=== PATIENT | female | born 1960 | race Caucasian/White ===

== ENCOUNTER 2017-09-04 00:30 | Outpatient (RCR) | payer MEDICARE, SELFPAY ==
[2017-09-02 01:19] VITALS: BP 154/96; PULSE 77; RESP 16; TEMP 36.4; BMI 42.8
[2017-09-04 13:06] VITALS: BP 158/88; PULSE 114; RESP 18; TEMP 36.6; BMI 42.8
--- NOTE | 2017-09-04 13:35 | PCM.WC.PN ---
(1) Non-pressure chronic ulcer of other part of left lower leg with fat layer exposed Status: Acute Current Visit: Yes Code(s): L97.822 - Non-pressure chronic ulcer of other part of left lower leg with fat layer exposed (2) Type 2 diabetes mellitus with other skin ulcer Status: Acute Current Visit: Yes Qualifiers: Diabetes mellitus shelter insulin use: unspecified shelter insulin use status Code(s): E11.622 - Type 2 diabetes mellitus with other skin ulcer; L98.499 - Non-pressure chronic ulcer of skin of other sites with unspecified severity (3) Type 2 diabetes mellitus with diabetic peripheral angiopathy without gangrene Status: Acute Current Visit: Yes 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 Present after developing cellutlitis to her LLE. Has been keeping open to air. Is currently taking doxycycline PO. The patient is status post AKA on the Right. Patient is morbidly obese. The patient has adult onset type II diabetes mellitus. She is on insulin therapy exclusively now. Her blood sugars run in the 300 range daily, but was 156 mg/dL this AM. She does not remember what her most recent hemoglobin A1c was however it usually runs in the 9-10 range. The patient has had vascular procedures performed to her left leg as well as CABG for coronary artery disease. The patient has had multiple myocardial infarctions with resultant ischemic cardiomyopathy. The patient has a pacemaker and defibrillator. The patient has atrial fibrillation and is on Coumadin therapy. 09/04--Using elzbieta, adaptic 3x/week. Improved significantly. Denies redness, pus, malodor, warmth, pain. Denies N/V/F/C. Progress of Wound: Improved significantly. Distal ulcer healed. - Physical Exam Vital Signs Temp Pulse Resp BP 97.8 F 114 H 18 158/88 H 09/04/17 13:06 09/04/17 13:06 09/04/17 13:06 09/04/17 13:06 General: Alert, Oriented x3, Cooperative, No apparent distress Skin: Ulcer/ Wound - L mobley with no erythema, no pus, no malodor, no increased warmth, no TTP. No clinical signs of acute bacterial infection noted. Please see nurse's wound assessment. Wound Measurements and Assessment WC - Nurse 1 - General Ulcer Measurement Start: 09/04/17 00:43 Freq: Status: Active Protocol: Activity Type Activity Date Activity User E-Sign Co-Sign Detail Recorded Client Recorded Date Recorded By Document 09/04/17 13:06 DL [id number] 09/04/17 13:16 DL 09/04/17 13:06 Wound Center Nurse 1 [Ulcer Assessment Protocol: WC.WD.LOC] 2-left medial mobley -Current Size (cm) - Length 0.1 -Current Size (cm) - Width 0.1 -Current Size (cm) - Depth 0.1 -Total Square Cm 0.01 -Photo Taken No -Exudate Amt None Present (0 %) -Wound Margin Thickened -Granulation Amt None Present (0 %) -Necrosis Amt Small (1-33%) -Necrotic Tissue Type Adherent Slough -Structure Exposed N/A -Texture (Yolanda-wound Skin Appearance) No Abnormality Scarring -Moisture (Yolanda-wound Skin Appearance No Abnormality ) -Color (Yolanda-wound Skin Appearance) Hemosiderin Staining -Temperature (Yolanda-wound Skin No Abnormality Appearance) (Pt Warm) -Ulcer Cleansing Rinsed/ Irrigated with Saline -Foul Odor after Cleansing No -Anesthetic Used 4% Lidocaine Solution 1-left mid mobley -Current Size (cm) - Length 0.3 -Current Size (cm) - Width 0.3 -Current Size (cm) - Depth 0.1 -Total Square Cm 0.09 -Photo Taken No -Epithelialization Medium 34-66% -Exudate Amt None Present (0 %) -Wound Margin Flat & Intact -Granulation Amt Small (1-33%) -Granulation Quality Michie -Necrosis Amt Small (1-33%) -Necrotic Tissue Type Adherent Slough -Structure Exposed N/A -Texture (Yolanda-wound Skin Appearance) Scarring -Moisture (Yolanda-wound Skin Appearance No Abnormality ) -Color (Yolanda-wound Skin Appearance) Hemosiderin Staining -Temperature (Yolanda-wound Skin No Abnormality Appearance) (Pt Warm) -Ulcer Cleansing Rinsed/ Irrigated with Saline -Foul Odor after Cleansing No -Anesthetic Used 4% Lidocaine Solution [Edema Assessment] -Left Calf (cm) 40.5 -Left Ankle (cm) 22 WC - Nurse 2 - General Ulcer CM Notes Start: 09/04/17 00:43 Freq: Status: Active Protocol: Activity Type Activity Date Activity User E-Sign Co-Sign Detail Recorded Client Recorded Date Recorded By Document 09/04/17 13:29 MW [id number] 09/04/17 13:32 MW 09/04/17 13:29 Wound Center Nurse 2 [Procedure/Treatment] 2-left medial mobley -Time 13:30 -Correct Patient Yes -Correct Side, Site, Position Yes -Correct Procedure Yes -Procedure Performed No -Post Debridement Size (cm) - Length 0 -Post Debridement Size (cm) - Width 0 -Post Debridement Size (cm) - Depth 0 -Total Square Cm 0 -Wound/Ulcer Outcome Healed- Epithelialized -Ulcer Cleansing Rinsed/ Irrigated with Saline -Foul Odor after Cleansing No -Bioengineered Tissue No -Cetacaine [place] No -Bleeding Controlled with NA -Treatment Response Procedure Tolerated Well 1-left mid mobley -Time 13:31 -Correct Patient Yes -Correct Side, Site, Position Yes -Correct Procedure Yes -Procedure Performed Yes -Type of Procedure Debridement -Clinical Debridement Subcutaneous -Post Debridement Size (cm) - Length 0.4 -Post Debridement Size (cm) - Width 0.4 -Post Debridement Size (cm) - Depth 0.1 -Total Square Cm 0.16 -Wound/Ulcer Outcome Not Healed -Ulcer Cleansing Rinsed/ Irrigated with Saline -Foul Odor after Cleansing No -Bioengineered Tissue No -Cetacaine [place] No -Bleeding Controlled with NA -Treatment Response Procedure Tolerated Well [See Physician Procedure note for Specifics] Pain Scale: 0-10 Numeric [Pain] -Is Patient Pain Free? Yes Debridement Note Post-Debridement Measurements/Treatment WC - Nurse 2 - General Ulcer CM Notes Start: 09/04/17 00:43 Freq: Status: Active Protocol: Activity Type Activity Date Activity User E-Sign Co-Sign Detail Recorded Client Recorded Date Recorded By Document 09/04/17 13:29 MW [id number] 09/04/17 13:32 MW 09/04/17 13:29 Wound Center Nurse 2 2-left medial mobley -Time 13:30 -Correct Patient Yes -Correct Side, Site, Position Yes -Correct Procedure Yes -Procedure Performed No -Post Debridement Size (cm) - Length 0 -Post Debridement Size (cm) - Width 0 -Post Debridement Size (cm) - Depth 0 -Total Square Cm 0 -Wound/Ulcer Outcome Healed- Epithelialized -Ulcer Cleansing Rinsed/ Irrigated with Saline -Foul Odor after Cleansing No -Bioengineered Tissue No -Cetacaine [place] No -Bleeding Controlled with NA -Treatment Response Procedure Tolerated Well 1-left mid mobley -Time 13:31 -Correct Patient Yes -Correct Side, Site, Position Yes -Correct Procedure Yes -Procedure Performed Yes -Type of Procedure Debridement -Clinical Debridement Subcutaneous -Post Debridement Size (cm) - Length 0.4 -Post Debridement Size (cm) - Width 0.4 -Post Debridement Size (cm) - Depth 0.1 -Total Square Cm 0.16 -Wound/Ulcer Outcome Not Healed -Ulcer Cleansing Rinsed/ Irrigated with Saline -Foul Odor after Cleansing No -Bioengineered Tissue No -Cetacaine [place] No -Bleeding Controlled with NA -Treatment Response Procedure Tolerated Well Pain Scale: 0-10 Numeric Is Patient Pain Free? Yes Wound debrided: L mobley Laterality: Left Wound Grade/Stage: Full thickness pickard 1 diabetic ulcer Type of Debridement: Excisional debridement Anesthesia Used: 4% Lidocaine Solution Depth: Down to and including healthy tissue, in the subcutaneous layer Percentage of wound debrided: 100 Instrument Used: 3mm curette Tissue Removed: fibrous slough Severity: Fat Layer Exposed Amount of bleeding with debridement: Mild Bleeding Controlled with: Pressure, Compression and gauze Patient tolerated procedure well Assessment/Plan Active Problems Type 2 diabetes mellitus with diabetic peripheral angiopathy without gangrene (Acute) Type 2 diabetes mellitus with other skin ulcer (Acute) Non-pressure chronic ulcer of other part of left lower leg with fat layer exposed (Acute) Assessment: See diagnoses Plan: SQ/excisional debridement of L mobley ulcer as above. Cont elzbieta and dry dressing every other day. Cover with adaptic and dry gauze. Improved significantly. Discussed importance of adequate nutrition, especially increased protein intake, to promote healing. Pt is non-smoker. Discussed importance of tight blood sugar control. Monitor for redness, pus, malodor, warmth, pain, swelling, as well as for N/V/F/C and go to the ED with these. RTC 1 week, call with questions prior to f/u appt.
--- NOTE | 2017-09-04 13:39 | PN.PCM_ITS ---
(1) Non-pressure chronic ulcer of other part of left lower leg with fat layer exposed Status: Acute Current Visit: Yes Code(s): L97.822 - Non-pressure chronic ulcer of other part of left lower leg with fat layer exposed (2) Type 2 diabetes mellitus with other skin ulcer Status: Acute Current Visit: Yes Qualifiers: Diabetes mellitus detention insulin use: unspecified detention insulin use status Code(s): E11.622 - Type 2 diabetes mellitus with other skin ulcer; L98.499 - Non -pressure chronic ulcer of skin of other sites with unspecified severity (3) Type 2 diabetes mellitus with diabetic peripheral angiopathy without gangrene Status: Acute Current Visit: Yes 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 Present after developing cellutlitis to her LLE. Has been keeping open to air. Is currently taking doxycycline PO. The patient is status post AKA on the Right. Patient is morbidly obese. The patient has adult onset type II diabetes mellitus. She is on insulin therapy exclusively now. Her blood sugars run in the 300 range daily, but was 156 mg/dL this AM. She does not remember what her most recent hemoglobin A1c was however it usually runs in the 9-10 range. The patient has had vascular procedures performed to her left leg as well as CABG for coronary artery disease. The patient has had multiple myocardial infarctions with resultant ischemic cardiomyopathy. The patient has a pacemaker and defibrillator. The patient has atrial fibrillation and is on Coumadin therapy. 09/04--Using elzbieta, adaptic 3x/week. Improved significantly. Denies redness, pus, malodor, warmth, pain. Denies N/V/F/C. Progress of Wound: Improved significantly. Distal ulcer healed. - Physical Exam Vital Signs Temp Pulse Resp BP 97.8 F 114 H 18 158/88 H 09/04/17 13:06 09/04/17 13:06 09/04/17 13:06 09/04/17 13:06 General: Alert, Oriented x3, Cooperative, No apparent distress Skin: Ulcer/ Wound - L mobley with no erythema, no pus, no malodor, no increased warmth, no TTP. No clinical signs of acute bacterial infection noted. Please see nurse's wound assessment. Wound Measurements and Assessment WC - Nurse 1 - General Ulcer Measurement Start: 09/04/17 00:43 Freq: Status: Active Protocol: Activity Type Activity Date Activity User E-Sign Co-Sign Detail Recorded Client Recorded Date Recorded By Document 09/04/17 13:06 DL [id number] 09/04/17 13:16 DL 09/04/17 13:06 Wound Center Nurse 1 [Ulcer Assessment Protocol: WC.WD.LOC] 2-left medial mobley -Current Size (cm) - Length 0.1 -Current Size (cm) - Width 0.1 -Current Size (cm) - Depth 0.1 -Total Square Cm 0.01 -Photo Taken No -Exudate Amt None Present (0 %) -Wound Margin Thickened -Granulation Amt None Present (0 %) -Necrosis Amt Small (1-33%) -Necrotic Tissue Type Adherent Slough -Structure Exposed N/A -Texture (Yolanda-wound Skin Appearance) No Abnormality Scarring -Moisture (Yolanda-wound Skin Appearance No Abnormality ) -Color (Yolanda-wound Skin Appearance) Hemosiderin Staining -Temperature (Yolanda-wound Skin No Abnormality Appearance) (Pt Warm) -Ulcer Cleansing Rinsed/ Irrigated with Saline -Foul Odor after Cleansing No -Anesthetic Used 4% Lidocaine Solution 1-left mid mobley -Current Size (cm) - Length 0.3 -Current Size (cm) - Width 0.3 -Current Size (cm) - Depth 0.1 -Total Square Cm 0.09 -Photo Taken No -Epithelialization Medium 34-66% -Exudate Amt None Present (0 %) -Wound Margin Flat & Intact -Granulation Amt Small (1-33%) -Granulation Quality [place] -Necrosis Amt Small (1-33%) -Necrotic Tissue Type Adherent Slough -Structure Exposed N/A -Texture (Yolanda-wound Skin Appearance) Scarring -Moisture (Yolanda-wound Skin Appearance No Abnormality ) -Color (Yolanda-wound Skin Appearance) Hemosiderin Staining -Temperature (Yolanda-wound Skin No Abnormality Appearance) (Pt Warm) -Ulcer Cleansing Rinsed/ Irrigated with Saline -Foul Odor after Cleansing No -Anesthetic Used 4% Lidocaine Solution [Edema Assessment] -Left Calf (cm) 40.5 -Left Ankle (cm) 22 WC - Nurse 2 - General Ulcer CM Notes Start: 09/04/17 00:43 Freq: Status: Active Protocol: Activity Type Activity Date Activity User E-Sign Co-Sign Detail Recorded Client Recorded Date Recorded By Document 09/04/17 13:29 MW [id number] 09/04/17 13:32 MW 09/04/17 13:29 Wound Center Nurse 2 [Procedure/Treatment] 2-left medial mobley -Time 13:30 -Correct Patient Yes -Correct Side, Site, Position Yes -Correct Procedure Yes -Procedure Performed No -Post Debridement Size (cm) - Length 0 -Post Debridement Size (cm) - Width 0 -Post Debridement Size (cm) - Depth 0 -Total Square Cm 0 -Wound/Ulcer Outcome Healed- Epithelialized -Ulcer Cleansing Rinsed/ Irrigated with Saline -Foul Odor after Cleansing No -Bioengineered Tissue No -Cetacaine Coleman No -Bleeding Controlled with NA -Treatment Response Procedure Tolerated Well 1-left mid mobley -Time 13:31 -Correct Patient Yes -Correct Side, Site, Position Yes -Correct Procedure Yes -Procedure Performed Yes -Type of Procedure Debridement -Clinical Debridement Subcutaneous -Post Debridement Size (cm) - Length 0.4 -Post Debridement Size (cm) - Width 0.4 -Post Debridement Size (cm) - Depth 0.1 -Total Square Cm 0.16 -Wound/Ulcer Outcome Not Healed -Ulcer Cleansing Rinsed/ Irrigated with Saline -Foul Odor after Cleansing No -Bioengineered Tissue No -Cetacaine Coleman No -Bleeding Controlled with NA -Treatment Response Procedure Tolerated Well [See Physician Procedure note for Specifics] Pain Scale: 0-10 Numeric [Pain] -Is Patient Pain Free? Yes Debridement Note Post-Debridement Measurements/Treatment WC - Nurse 2 - General Ulcer CM Notes Start: 09/04/17 00:43 Freq: Status: Active Protocol: Activity Type Activity Date Activity User E-Sign Co-Sign Detail Recorded Client Recorded Date Recorded By Document 09/04/17 13:29 MW [id number] 09/04/17 13:32 MW 09/04/17 13:29 Wound Center Nurse 2 2-left medial mobley -Time 13:30 -Correct Patient Yes -Correct Side, Site, Position Yes -Correct Procedure Yes -Procedure Performed No -Post Debridement Size (cm) - Length 0 -Post Debridement Size (cm) - Width 0 -Post Debridement Size (cm) - Depth 0 -Total Square Cm 0 -Wound/Ulcer Outcome Healed- Epithelialized -Ulcer Cleansing Rinsed/ Irrigated with Saline -Foul Odor after Cleansing No -Bioengineered Tissue No -Cetacaine Coleman No -Bleeding Controlled with NA -Treatment Response Procedure Tolerated Well 1-left mid mobley -Time 13:31 -Correct Patient Yes -Correct Side, Site, Position Yes -Correct Procedure Yes -Procedure Performed Yes -Type of Procedure Debridement -Clinical Debridement Subcutaneous -Post Debridement Size (cm) - Length 0.4 -Post Debridement Size (cm) - Width 0.4 -Post Debridement Size (cm) - Depth 0.1 -Total Square Cm 0.16 -Wound/Ulcer Outcome Not Healed -Ulcer Cleansing Rinsed/ Irrigated with Saline -Foul Odor after Cleansing No -Bioengineered Tissue No -Cetacaine Coleman No -Bleeding Controlled with NA -Treatment Response Procedure Tolerated Well Pain Scale: 0-10 Numeric Is Patient Pain Free? Yes Wound debrided: L mobley Laterality: Left Wound Grade/Stage: Full thickness pickard 1 diabetic ulcer Type of Debridement: Excisional debridement Anesthesia Used: 4% Lidocaine Solution Depth: Down to and including healthy tissue, in the subcutaneous layer Percentage of wound debrided: 100 Instrument Used: 3mm curette Tissue Removed: fibrous slough Severity: Fat Layer Exposed Amount of bleeding with debridement: Mild Bleeding Controlled with: Pressure, Compression and gauze Patient tolerated procedure well Assessment/Plan Active Problems Type 2 diabetes mellitus with diabetic peripheral angiopathy without gangrene ( Acute) Type 2 diabetes mellitus with other skin ulcer (Acute) Non-pressure chronic ulcer of other part of left lower leg with fat layer exposed (Acute) Assessment: See diagnoses Plan: SQ/excisional debridement of L mobley ulcer as above. Cont elzbieta and dry dressing every other day. Cover with adaptic and dry gauze. Improved significantly. Discussed importance of adequate nutrition, especially increased protein intake, to promote healing. Pt is non-smoker. Discussed importance of tight blood sugar control. Monitor for redness, pus, malodor, warmth, pain, swelling, as well as for N/V/F/C and go to the ED with these. RTC 1 week, call with questions prior to f/u appt.
== END 2017-09-30 23:59 ==
LOC: WC 00:30
PROVIDERS: Family Provider Internal Medicine; PCP Internal Medicine; Visit Provider Podiatrist Foot & Ankle Surgery
DX: E11.622 Type 2 diabetes mellitus with other skin ulcer (principal); E11.51 Type 2 diabetes mellitus with diabetic peripheral angiopathy without gangrene; L97.822 Non-pressure chronic ulcer of other part of left lower leg with fat layer exposed; Z89.611 Acquired absence of right leg above knee; E66.01 Morbid (severe) obesity due to excess calories; Z68.41 Body mass index [BMI] 40.0-44.9, adult; Z71.3 Dietary counseling and surveillance; I25.10 Atherosclerotic heart disease of native coronary artery without angina pectoris; Z95.1 Presence of aortocoronary bypass graft; Z95.810 Presence of automatic (implantable) cardiac defibrillator; I25.2 Old myocardial infarction; I48.91 Unspecified atrial fibrillation; Z79.01 Long term (current) use of anticoagulants
CPT/HCPCS: 11042

== ENCOUNTER 2018-03-11 20:20 | Emergency (ER) | payer MEDICARE, SELFPAY ==
--- NOTE | 2018-03-11 20:20 | DT_ITS ---
This patient was seen during an EMR downtime March 04, 2018 - March 11, 2018. This patient may have a combination of paper and electronic documentation or all paper documentation. All documentation is viewable within the e-chart portion of [facility] for each patient visit.
[2018-03-11 20:21] VITALS: BP 122/66; PULSE 75; RESP 17; TEMP 36.7; O2SAT 95; BMI 47.3
--- NOTE | 2018-03-11 21:15 | US_ITS ---
STUDY: VENOUS DOPPLER ULTRASOUND - RIGHT LOWER EXTREMITY REASON FOR EXAM: Female, 57 years old. Swelling after hysterectomy. Amputation TECHNIQUE: Ultrasound evaluation of the deep vein system to include gomez-scale imaging and compression was performed. Gomez-scale imaging and Doppler sonographic evaluation, including duplex spectral analysis and qualitative color flow sonography, was performed. COMPARISON: None. FINDINGS: Common Femoral Vein: Normal compression, spontaneity and augmentation. Normal color Doppler. Common Femoral Vein/Greater Saphenous Junction: Normal compression, spontaneity and augmentation. Normal color Doppler. Deep Femoral Vein: Normal compression, spontaneity and augmentation. Normal color Doppler. Femoral Proximal: Normal compression, spontaneity and augmentation. Normal color Doppler. Femoral Middle: Normal compression, spontaneity and augmentation. Normal color Doppler. Femoral Distal: Limited visualization. Normal compression, spontaneity and augmentation. Normal color Doppler. Popliteal Vein: Not seen due to amputation Posterior Tibial Vein: Not seen due to amputation Peroneal Vein: Not seen due to amputation There is no demonstrated deep venous thrombosis. US/Venous Duplex Imag/Limited/Uni IMPRESSION: No thrombosis seen. Status post amputation. Electronically Signed: Harinder Goff MD at 22:19 EDT , Service support ,
--- NOTE | 2018-03-11 22:27 | ED.VISSUMM ---
- ER Visit Summary Date of Service: 03/11/18 Chief Complaint: Swelling History of Present Illness: The patient is a 57 F who was discharged from [facility] today. She had an abdominal hysterectomy last week. Patient is on Coumadin for history of ischemic cardiomyopathy, DVT, A. fib. Patient states her Coumadin was restarted 2 or 3 days ago and her INR was 2.0 this morning. After getting home from the hospital she noted swelling to her right leg. She has had a prior AKA on that leg. She denies significant pain. Physical Examination: Vital signs unremarkable. Head neck examination is unremarkable. Heart is regular rate and rhythm. Lung sounds are clear. Abdomen is soft with appropriate tenderness around the incision site. No sign of infection. Right lower extremity examination reveals evidence of prior right AKA. She has mild tenderness. There is slight erythema along the groin crease no overt sign of infection at this time. Test Results: Venous ultrasound of the right leg reveals no evidence of clot. Emergency Department Course and Treatment: Patient was advised to keep the area clean. Continue her Coumadin as previously prescribed. Treatment Plan: [] Disposition: Discharge Impression: Right leg edema This note was generated with [employer] dictation software. It may contain incorrect words, spelling, and punctuation that were not noted in review of the chart prior to signing ED Disposition - Plan for ED Patient: Chief Complaint: Edema Referrals: Leslie Bird MD [Primary Care Provider] -
[2018-03-11 22:28] VITALS: BP 161/76; PULSE 78; RESP 18; O2SAT 97
--- NOTE | 2018-03-11 22:30 | ED.DCSUM_ITS ---
- ER Visit Summary Date of Service: 03/11/18 Chief Complaint: Swelling History of Present Illness: The patient is a 57 F who was discharged from [place] today. She had an abdominal hysterectomy last week. Patient is on Coumadin for history of ischemic cardiomyopathy, DVT, A. fib. Patient states her Coumadin was restarted 2 or 3 days ago and her INR was 2.0 this morning. After getting home from the hospital she noted swelling to her right leg. She has had a prior AKA on that leg. She denies significant pain. Physical Examination: Vital signs unremarkable. Head neck examination is unremarkable. Heart is regular rate and rhythm. Lung sounds are clear. Abdomen is soft with appropriate tenderness around the incision site. No sign of infection. Right lower extremity examination reveals evidence of prior right AKA. She has mild tenderness. There is slight erythema along the groin crease no overt sign of infection at this time. Test Results: Venous ultrasound of the right leg reveals no evidence of clot. Emergency Department Course and Treatment: Patient was advised to keep the area clean. Continue her Coumadin as previously prescribed. Treatment Plan: [] Disposition: Discharge Impression: Right leg edema This note was generated with [employer] dictation software. It may contain incorrect words, spelling, and punctuation that were not noted in review of the chart prior to signing ED Disposition - Plan for ED Patient: Chief Complaint: Edema Referrals: Leslie Bird MD [Primary Care Provider] -
--- NOTE | 2018-03-11 22:30 | ED.DEP ---
ED Disposition - Plan for ED Patient: Disposition: Home or Assisted Living Chief Complaint: Edema Instructions: ED Leg Swelling Unilateral Referrals: Leslie Bird MD [Primary Care Provider] - 1 Week
[2018-03-11 22:48] VITALS: BP 161/76; PULSE 78; RESP 18; O2SAT 98
== END 2018-03-11 23:06 | disposition home or self-care (01) ==
PROVIDERS: Emergency Provider Emergency Medicine; Family Provider Internal Medicine; PCP Internal Medicine
DX: R60.0 Localized edema (principal); I25.5 Ischemic cardiomyopathy; I48.91 Unspecified atrial fibrillation; Z79.01 Long term (current) use of anticoagulants; Z86.718 Personal history of other venous thrombosis and embolism; Z89.611 Acquired absence of right leg above knee; Z90.710 Acquired absence of both cervix and uterus
CPT/HCPCS: 93971; 99284

== ENCOUNTER 2018-04-15 13:21 | Outpatient (RCR) | payer MEDICARE, SELFPAY ==
[2018-04-08 13:40] LABS: Hematocrit 29.6 % (37-47); Hemoglobin 9.3 g/dl (12.0-15.0); Mean Corp Hgb Conc 31.4 g/gl (32-36); Mean Corpuscular Hgb 30.9 pg (27.0-32.0); Mean Corpuscular Volume 98.3 fL (81-99); Mean Platelet Vol. 11.3 fl (6.2-12.0); Platelet Count 216 K/mm3 (150-450); RBC Distribution Width CV 14.4 % (11.6-14.6); RBC Distribution Width SD 49.7 fl (35.1-43.9); Red Blood Count 3.01 M/mm3 (4.2-5.4); Scan Indicated on CBC? Y/N NO
[2018-04-08 13:53] LABS: ALB/GLOB Ratio 0.5 RATIO (0.9-2.4); AST(SGOT) 20 U/L (15-37); Alanine Aminotransfer ALT/SGPT 12 U/L (13-56); Albumin, Serum 2.4 g/dL (3.2-5.0); Alkaline Phosphatase 95 U/L (45-117); Anion Gap 9 (5-15); BUN 35 mg/dL (7-18); BUN/Creat Ratio 17.8 RATIO (10-20); Calcium,Total 9.6 mg/dL (8.5-10.1); Chloride 107 mmol/L (98-107); Creatinine, Serum 1.97 mg/dL (0.55-1.02); EST Glomerular Filtration Rate 28 mL/min (>60); Est Glom Filt Rate - Afr Amer 34 mL/min (>60); Globulin 4.5 g/dL (2.2-4.2); Glucose 79 mg/dL (74-106); Potassium 4.9 mmol/L (3.5-5.1); Protein, Total 6.9 g/dL (6.4-8.2); Sodium Level 142 mmol/L (136-145)
[2018-04-15 14:42] LABS: Hematocrit 31.5 % (37-47); Hemoglobin 9.7 g/dl (12.0-15.0); Mean Corp Hgb Conc 30.8 g/gl (32-36); Mean Corpuscular Hgb 29.9 pg (27.0-32.0); Mean Corpuscular Volume 97.2 fL (81-99); Mean Platelet Vol. 11.5 fl (6.2-12.0); Platelet Count 154 K/mm3 (150-450); RBC Distribution Width CV 14.4 % (11.6-14.6); RBC Distribution Width SD 51.1 fl (35.1-43.9); Red Blood Count 3.24 M/mm3 (4.2-5.4)
[2018-04-15 14:43] LABS: Scan Indicated on CBC? Y/N NO
[2018-04-15 14:52] LABS: ALB/GLOB Ratio 0.6 RATIO (0.9-2.4); AST(SGOT) 16 U/L (15-37); Alanine Aminotransfer ALT/SGPT 15 U/L (13-56); Albumin, Serum 2.7 g/dL (3.2-5.0); Alkaline Phosphatase 92 U/L (45-117); Anion Gap 8 (5-15); BUN 36 mg/dL (7-18); BUN/Creat Ratio 18.8 RATIO (10-20); Calcium,Total 9.2 mg/dL (8.5-10.1); Chloride 106 mmol/L (98-107); Creatinine, Serum 1.91 mg/dL (0.55-1.02); EST Glomerular Filtration Rate 29 mL/min (>60); Est Glom Filt Rate - Afr Amer 35 mL/min (>60); Globulin 4.6 g/dL (2.2-4.2); Glucose 155 mg/dL (74-106); Potassium 4.3 mmol/L (3.5-5.1); Protein, Total 7.3 g/dL (6.4-8.2); Sodium Level 141 mmol/L (136-145)
== END 2018-04-30 23:59 ==
LOC: HHLAB 13:21
PROVIDERS: Family Provider Internal Medicine; PCP Internal Medicine
DX: B95.61 Methicillin susceptible Staphylococcus aureus infection as the cause of diseases classified elsewhere (principal); E11.42 Type 2 diabetes mellitus with diabetic polyneuropathy; I11.9 Hypertensive heart disease without heart failure
CPT/HCPCS: 80053; 85027

== ENCOUNTER 2018-09-18 02:00 | Emergency (ER) | payer MEDICARE, SELFPAY ==
[2018-09-18 02:02] VITALS: BP 137/87; PULSE 78; RESP 18; TEMP 36.4; O2SAT 97; BMI 369.1
[2018-09-18] MEDS: Dextrose 50%-Water 25 GM/50 ML DISP.SYRIN IV (02:08)
[2018-09-18 02:15] LABS: Bedside Glucose 40 mg/dL (70-110)
[2018-09-18 02:42] VITALS: BP 138/90; PULSE 79; RESP 16
[2018-09-18 02:46] LABS: Bedside Glucose 139 mg/dL (70-110)
--- NOTE | 2018-09-18 02:59 | ED.RN ---
PT IN POSITION OF COMFORT. LIGHTS OFF. WILL RECHECK HER BSL AT 0330.
[2018-09-18 03:36] LABS: Bedside Glucose 144 mg/dL (70-110)
--- NOTE | 2018-09-18 04:14 | ED.VISSUMM ---
- ER Visit Summary Date of Service: 09/18/18 Chief Complaint: [Hypoglycemia] History of Present Illness: The patient is a 58 F [presents to the emergency department with a hypoglycemic episode. Patient apparently had an alarm set and when she did not wake up her significant other attempted to wake her up and she was unresponsive. EMS was called. Patient was found to have a blood glucose in the 30s. EMS did give oral glucose. EMS unable to obtain an IV therefore patient was brought to the emergency department for further evaluation. On arrival patient awake and alert and answering questions appropriately. Patient states that she normally takes 80 units of insulin in the morning and 70 units in the evening. Patient does state that she ate dinner last night. Patient is not had issue with hypoglycemia. She does have a history of diabetes, hypertension, high cholesterol, hypothyroidism, and history of DVT. Patient denies recent illness.] Physical Examination: [HEENT-PERRLA, EOMI. Cranial nerves II through XII grossly intact. TMs clear. Mucous membranes moist. No adenopathy. Cardiovascular-regular rate and rhythm without murmur or ectopy Lungs-clear to auscultation, chest wall stable without crepitus or subcu emphysema Abdomen-normoactive bowel sounds, soft, nontender, no rebound or rigidity, no peritoneal signs. Extremities-intact ?4, normal range of motion, normal pulses, atraumatic. 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 Patient was given a meal tray. Patient was observed in the emergency department for several hours and her blood glucose did not drop further.] Treatment Plan: [Patient advised to follow-up with primary care physician within next 3-5 days. Disposition: [Discharged home in stable condition] Impression: [Hypoglycemia-insulin reaction] This note was generated with [employer] dictation software. It may contain incorrect words, spelling, and punctuation that were not noted in review of the chart prior to signing ED Disposition - Plan for ED Patient: Chief Complaint: Hypoglycemia Referrals: Leslie Bird MD [Primary Care Provider] -
--- NOTE | 2018-09-18 04:17 | ED.DCSUM_ITS ---
- ER Visit Summary Date of Service: 09/18/18 Chief Complaint: [Hypoglycemia] History of Present Illness: The patient is a 58 F [presents to the emergency department with a hypoglycemic episode. Patient apparently had an alarm set and when she did not wake up her significant other attempted to wake her up and she was unresponsive. EMS was called. Patient was found to have a blood glucose in the 30s. EMS did give oral glucose. EMS unable to obtain an IV therefore patient was brought to the emergency department for further evaluation. On arrival patient awake and alert and answering questions appropriately. Patient states that she normally takes 80 units of insulin in the morning and 70 units in the evening. Patient does state that she ate dinner last night. Patient is not had issue with hypoglycemia. She does have a history of diabetes, hypertension, high cholesterol, hypothyroidism, and history of DVT. Patient denies recent illness.] Physical Examination: [HEENT-PERRLA, EOMI. Cranial nerves II through XII grossly intact. TMs clear. Mucous membranes moist. No adenopathy. Cardiovascular-regular rate and rhythm without murmur or ectopy Lungs-clear to auscultation, chest wall stable without crepitus or subcu emphysema Abdomen-normoactive bowel sounds, soft, nontender, no rebound or rigidity, no peritoneal signs. Extremities-intact ?4, normal range of motion, normal pulses, atraumatic. Patient does have a right [id number] amputation.] Test Results: [None indicated] Emergency Department Course and Treatment: [IV line established and patient given an amp of D50. Patient was given a meal tray. Patient was observed in the emergency department for several hours and her blood glucose did not drop further.] Treatment Plan: [Patient advised to follow-up with primary care physician within next 3-5 days. Disposition: [Discharged home in stable condition] Impression: [Hypoglycemia-insulin reaction] This note was generated with [employer] dictation software. It may contain incorrect words, spelling, and punctuation that were not noted in review of the chart prior to signing ED Disposition - Plan for ED Patient: Chief Complaint: Hypoglycemia Referrals: Leslie Bird MD [Primary Care Provider] -
--- NOTE | 2018-09-18 04:17 | ED.DEP ---
ED Disposition - Plan for ED Patient: Chief Complaint: Hypoglycemia Instructions: ED Diabetes Hypoglycemia Insulin React Referrals: Leslie Bird MD [Primary Care Provider] - 3-5 Days
[2018-09-18 04:32] VITALS: BP 128/74; PULSE 75; RESP 11
[2018-09-18 04:41] LABS: Bedside Glucose 126 mg/dL (70-110)
[2018-09-18 05:31] LABS: Bedside Glucose 132 mg/dL (70-110)
[2018-09-18 06:15] LABS: Bedside Glucose 140 mg/dL (70-110)
[2018-09-18 08:00] VITALS: BP 126/73; PULSE 73; RESP 12
--- OUTSIDE RECORDS SUMMARY | 2018-12-20 06:42 | XMS RPT_ITS ---
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 ADisp: 120 tabletRfl: 2 Prescriptions as of 09/26/2018 Sig: ALBUTEROL SULFATE HFA 90 MCG/* Inhale 2 Puffs as instructed * Patient not taking: Reported on 08/05/2018 ASPIRIN 81 MG CHEWABLE TABLET Take 1 tablet by mouth once d* ATORVASTATIN 40 MG TABLET Take 1 tablet by mouth once d* COMPOUNDED PRESCRIPTION BLOOD PRESSURE CUFF FOR HOME * BLOOD PRESSURE MONITOR KIT 1 Kit as directed. Home Kit, * BLOOD SUGAR DIAGNOSTIC STRIPS Test blood sugar(s) 4 times d* BLOOD-GLUCOSE METER KIT As directed BUPROPION XL 150 MG TAB Take 1 tablet by mouth once d* BUPROPION XL 300 MG 24 HR TAB TAKE ONE TABLET BY MOUTH EVER* CARVEDILOL 25 MG TABLET TAKE ONE TABLET BY MOUTH TWIC* CHOLECALCIFEROL (VITAMIN D3) * Take 1 capsule by mouth once * COLLAGENASE CLOSTRIDIUM HISTO* Apply 1 application to affect* COMPOUNDED PRESCRIPTION Magnifer for insulin syringe COMPOUNDED PRESCRIPTION Bariatric Mattress (patient a* DIAPER,BRIEF,ADULT,DISPOSABLE size 2X . uses 6 daily DX: * DICLOFENAC 1 % TOPICAL GEL Apply 2 g to affected area fo* Patient not taking: Reported on 08/05/2018 DIGOXIN 125 MCG TABLET Take 1 tablet by mouth once d* DISPOSABLE GLOVES Use as needed for home care, * EASY TOUCH INSULIN SYRINGE 0.* USE TWICE DAILY WITH insulin ESOMEPRAZOLE MAGNESIUM 40 MG * TAKE ONE CAPSULE BY MOUTH MARRY* FUROSEMIDE 40 MG TABLET TAKE ONE TABLET BY MOUTH EVER* GABAPENTIN 600 MG TABLET Take 1 tablet by mouth three * HYDROCHLOROTHIAZIDE 12.5 MG C* TAKE TWO CAPSULES BY MOUTH EV* PEN NEEDLE, DIABETIC 31 GAUGE* Use one needle per dose. 4 pe* INSULIN REGULAR HUMAN U-500 * Inject 80 units every morning* INSULIN REGULAR HUMAN U-500 * Inject 80 units 30 min before* Patient taking differently: Inject 80 units 30 min before* * LANCETS Test blood sugars 4 times earline* LISINOPRIL 20 MG TABLET Take 1 tablet by mouth once d* LORAZEPAM 0.5 MG TABLET Take 1 tablet by mouth once d* MAGNESIUM OXIDE 400 MG (241.3* TAKE ONE TABLET BY MOUTH TWIC* MUPIROCIN 2 % TOPICAL OINTMENT Apply 1 application to affect* * NEBULIZER ACCESSORIES KIT Nebulizer accessory kit with * NITROGLYCERIN 0.4 MG SUBLINGU* Dissolve under the tongue. O* NYSTATIN 100,000 UNIT/GRAM TO* Apply 1 application to affect* OXYCODONE 5 MG TABLET Take 5 mg by mouth. TRAMADOL 50 MG TABLET Take 1 tablet by mouth every * WARFARIN 5 MG TABLET 7.5mg Mon,Fri and 5mg all oth* Problem List As Of Date 09/26/2018 Noted Resolved Obesity, Class III, BMI 40-49.9 (morbid obesity*INVALID FOR* Acute myocardial infarction, unspecified site, *INVALID FOR*07/24/2017 Hyperlipemia, mixed [E78.2] INVALID FOR* More... Ulcer of heel and midfoot (HCC) [L97.409] INVALID FOR*07/24/2017 CARBUNCLE ARM (ABOVE WRIST) [L02.439, L02.429] INVALID FOR*07/24/2017 CARBUNCLE FLANK [L02.229] INVALID FOR*07/24/2017 Blood in stool [K92.1] INVALID FOR*07/24/2017 Atrial fibrillation [I48.91] INVALID FOR*10/18/2015 Asthma-chronic obstructive pulmonary disease ov* More... Contusion of foot [S90.30XA] INVALID FOR*07/24/2017 Hereditary and idiopathic peripheral neuropathy*INVALID FOR* Cannabis abuse, episodic [F12.10] INVALID FOR*07/24/2017 Eating disorder, unspecified [F50.9] INVALID FOR*07/24/2017 CERVICALGIA [M54.2] Carbuncle and furuncle of buttock [L02.33] INVALID FOR*07/24/2017 Essential hypertension [I10] INVALID FOR* More... Dermatophytosis of nail [B35.1] INVALID FOR*07/24/2017 Unspecified local infection of skin and subcuta*INVALID FOR*07/24/2017 More... Other malaise and fatigue [R53.81, R53.83] INVALID FOR*07/24/2017 ABNORMALITY OF GAIT [R26.9] INVALID FOR* WEAKNESS MUSCLE [M62.81] INVALID FOR* Multiple and unspecified open wound of lower li*INVALID FOR*07/24/2017 RESTLESS LEGS SYNDROME [G25.81] INVALID FOR* Vitamin D deficiency [E55.9] INVALID FOR* Neoplasm of unspecified nature of bone, soft ti*INVALID FOR*07/24/2017 Cellulitis and abscess of leg, except foot [L03*INVALID FOR*07/24/2017 Other hammer toe (acquired) [M20.40] INVALID FOR*07/24/2017 Obstructive chronic bronchitis without exacerba*INVALID FOR*03/07/2017 More... 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 Type II or unspecified type diabetes mellitus w*INVALID FOR*04/20/2016 SUMMARY [V999.95] INVALID FOR*07/24/2017 More... CAD (coronary artery disease) [I25.10] INVALID FOR* More... AF (atrial fibrillation) [I48.91] INVALID FOR*04/16/2017 More... HTN (hypertension) [I10] INVALID FOR*07/24/2017 More... Heart failure/ Ischemic Cardiomyopathy [I50.9] INVALID FOR* More... Hypothyroid [E03.9] INVALID FOR*03/22/2016 More... Venous ulcer of leg (HCC) [I83.009, L97.909] INVALID FOR*07/24/2017 More... More... SUMMARY [V999.95] INVALID FOR*12/29/2013 More... Cellulitis of lower limb [L03.119] INVALID FOR*07/24/2017 More... Acute renal insufficiency [N28.9] INVALID FOR*07/24/2017 More... Chest pain at rest [R07.9] INVALID FOR*07/24/2017 More... Decubitus skin ulcer [L89.90] INVALID FOR*07/24/2017 More... Hyponatremia [E87.1] INVALID FOR*07/24/2017 More... Diarrhea [R19.7] INVALID FOR*07/24/2017 More... Debility [R53.81] INVALID FOR* CKD (chronic kidney disease) stage 3, GFR 30-59*INVALID FOR* Microalbuminuria [R80.9] Knee pain [M25.569] INVALID FOR* Peripheral vascular disease [I73.9] INVALID FOR* More... Depression/ ? Bipolar Disorder [F32.9] INVALID FOR* More... More... Oliguria [R34] INVALID FOR*06/18/2013 More... Atherosclerosis of nonautologous biological byp*INVALID FOR*07/24/2017 Wound infection after surgery [T81.49XA] INVALID FOR*07/24/2017 More... Shortness of breath [R06.02] INVALID FOR*07/24/2017 More... LBBB (left bundle branch block) [I44.7] INVALID FOR* LV dysfunction [I51.9] INVALID FOR* Atherosclerosis of autologous vein bypass graft*INVALID FOR* Chronic anticoagulation [Z79.01] INVALID FOR* More... Admission for therapeutic drug monitoring [Z51.*INVALID FOR*07/24/2017 More... Heart failure, systolic, chronic [I50.22] INVALID FOR*03/15/2018 More... Biventricular ICD (implantable cardioverter-def*INVALID FOR* H/O: CVA (cerebrovascular accident) [Z86.73] INVALID FOR* MAX (acute kidney injury) (HCC) [N17.9] INVALID FOR*07/24/2017 More... More... Heart failure, systolic, acute on chronic (HCC)*INVALID FOR*07/24/2017 More... Discharge planning issues [Z02.9] INVALID FOR*03/05/2017 More... Presence of stent in right coronary artery [Z95*INVALID FOR* Presence of bare metal stent in LAD coronary ar*INVALID FOR* Chronic atrial fibrillation (HCC) [I48.2] INVALID FOR* Depressive disorder, not elsewhere classified [* Uncontrolled type 2 diabetes mellitus with diab*INVALID FOR* Morbid obesity due to excess calories (HCC) [E6*INVALID FOR*04/16/2017 History of right above knee amputation (HCC) [Z* More... Pleural effusion, bilateral [J90] INVALID FOR* More... Chronic renal insufficiency [N18.9] INVALID FOR* Endometrial cancer (HCC) [C54.1] INVALID FOR* More... Pulmonary HTN [I27.20] INVALID FOR* GERD (gastroesophageal reflux disease) [K21.9] INVALID FOR* Uterine cancer (HCC) [C55] INVALID FOR* More... Prescriptions ordered this encounter Disp Refills Start End TRAMADOL 50 MG TABLET 120 * 2 09/26/2018 12/25/2018 Class: Print RX Route: ORAL Sig: Take 1 tablet by mouth every 6 hours for 90 days. A Medications Discontinued During This Encounter traMADol (ULTRAM) 50 mg tablet 120 * 2 11/01/2017 09/26/2018 Class: Print RX Route: ORAL Sig: Take 1 tablet by mouth every 6 hours for 90 days. A Disc: Reason for discontinue is not on file. Encounter Status:Closed by AMEENA CEE on 09/27/18 BEDSIDE GLUCOSE Collected: 09/18/2018 Status: F Source: DI 6:11 AM [facility] REPOSITORY TYPE CODE TESTS RESULT OUT OF REFERENCE UNITS RANGE LAB L501.080 70-110 mg/dL High BEDSIDE GLU 140 Result Comment: MANAGEMENT OF PATIENT CARE PER NURSING PROTOCOL Performed By: #### L501.080 #### [facility] Point of Care [address] [place] [address] BEDSIDE GLUCOSE Collected: 09/18/2018 Status: F Source: DI 5:23 AM [facility] REPOSITORY TYPE CODE TESTS RESULT OUT OF REFERENCE UNITS RANGE LAB L501.080 70-110 mg/dL High BEDSIDE GLU 132 Result Comment: MANAGEMENT OF PATIENT CARE PER NURSING PROTOCOL Performed By: #### L501.080 #### [facility] Point of Care [address] [place] [address] BEDSIDE GLUCOSE Collected: 09/18/2018 Status: F Source: DI 4:37 AM [facility] REPOSITORY TYPE CODE TESTS RESULT OUT OF REFERENCE UNITS RANGE LAB L501.080 70-110 mg/dL High BEDSIDE GLU 126 Result Comment: MANAGEMENT OF PATIENT CARE PER NURSING PROTOCOL Performed By: #### L501.080 #### [facility] Point of Care [address] [place] [address] EMERGENCY DEPARTMENT Observed: 09/18/2018 Status: F Source: [place] SUMMARY 4:17 AM [facility] REPOSITORY [facility] Medical Records Department [address] [place] [address] Emergency Department Summary 09/18/18 0414 MR#: [id number] Acct: [id number] Name: SHOSHANA MADDEN Rep #: [id number] : 1960 58 From: Aviva Redd DO PCP: Jing Garza MD Status: REG ER - ER Visit Summary Date of Service: 09/18/18 Chief Complaint: [Hypoglycemia] History of Present Illness: The patient is a 58 F [presents to the emergency department with a hypoglycemic episode. Patient apparently had an alarm set and when she did not wake up her significant other attempted to wake her up and she was unresponsive. EMS was called. Patient was found to have a blood glucose in the 30s. EMS did give oral glucose. EMS unable to obtain an IV therefore patient was brought to the emergency department for further evaluation. On arrival patient awake and alert and answering questions appropriately. Patient states that she normally takes 80 units of insulin in the morning and 70 units in the evening. Patient does state that she ate dinner last night. Patient is not had issue with hypoglycemia. She does have a history of diabetes, hypertension, high cholesterol, hypothyroidism, and history of DVT. Patient denies recent illness.] Physical Examination: [HEENT-PERRLA, EOMI. Cranial nerves II through XII grossly intact. TMs clear. Mucous membranes moist. No adenopathy. Cardiovascular-regular rate and rhythm without murmur or ectopy Lungs-clear to auscultation, chest wall stable without crepitus or subcu emphysema Abdomen-normoactive bowel sounds, soft, nontender, no rebound or rigidity, no peritoneal signs. Extremities-intact 4, normal range of motion, normal pulses, atraumatic. Patient does have a right vhsdb-skv-sjvd amputation.] Test Results: [None indicated] Emergency Department Course and Treatment: [IV line established and patient given an amp of D50. Patient was given a meal tray. Patient was observed in the emergency department for several hours and her blood glucose did not drop further.] Treatment Plan: [Patient advised to follow-up with primary care physician within next 3-5 days. Disposition: [Discharged home in stable condition] Impression: [Hypoglycemia-insulin reaction] This note was generated with [employer] dictation software. It may contain incorrect words, spelling, and punctuation that were not noted in review of the chart prior to signing ED Disposition - Plan for ED Patient: Chief Complaint: Hypoglycemia Referrals: Jing Garza MD [Primary Care Provider] - What to do if you have Problems For any increased pain, shortness of breath, bleeding, nausea or vomiting, chest pain, or any unexpected problems, contact your Primary Care Provider. Call [facility] ([phone]) or report to the closest Emergency Room. Call 911 if necessary. 09/18/18416 <Electronically signed by Aviva Redd DO> Date Aviva Redd DO Cosigner Signature (If Indicated): Date CC: Jing Garza MD DISCHARGE INSTRUCTION Observed: 09/18/2018 Status: F Source: DI 4:17 AM [facility] REPOSITORY [facility] Medical Records Department [address] [place] [id number] Discharge Instruction 09/18/18416 MR#: [id number] Acct: [id number] Name: SHOSHANA MADDEN Rep #: [id number] : 1960 58 From: Aviva Redd DO PCP: Jing Garza MD Status: REG ER ED Disposition - Plan for ED Patient: Chief Complaint: Hypoglycemia Instructions: ED Diabetes Hypoglycemia Insulin React Referrals: Jing Garza MD [Primary Care Provider] - 3-5 Days What to do if you have Problems For any increased pain, shortness of breath, bleeding, nausea or vomiting, chest pain, or any unexpected problems, contact your Primary Care Provider. Call [facility] ([phone]) or report to the closest Emergency Room. Call 911 if necessary. 09/18/18 0417 <Electronically signed by Aviva Redd DO> Date Aviva Redd DO Cosigner Signature (If Indicated): Date CC: Jing Garza MD BEDSIDE GLUCOSE Collected: 09/18/2018 Status: F Source: DI 3:27 AM [facility] REPOSITORY TYPE CODE TESTS RESULT OUT OF REFERENCE UNITS RANGE LAB L501.080 70-110 mg/dL High BEDSIDE GLU 144 Result Comment: MANAGEMENT OF PATIENT CARE PER NURSING PROTOCOL Performed By: #### L501.080 #### [facility] Point of Care [address] [place], [place] [address] BEDSIDE GLUCOSE Collected: 09/18/2018 Status: F Source: DI 2:41 AM [facility] REPOSITORY TYPE CODE TESTS RESULT OUT OF REFERENCE UNITS RANGE LAB L501.080 70-110 mg/dL High BEDSIDE GLU 139 Result Comment: MANAGEMENT OF PATIENT CARE PER NURSING PROTOCOL Performed By: #### L501.080 #### [facility] Point of Care [address] [place] [address] BEDSIDE GLUCOSE Collected: 09/18/2018 Status: F Source: DI 2:06 AM [facility] REPOSITORY TYPE CODE TESTS RESULT OUT OF REFERENCE UNITS RANGE LAB L501.080 70-110 mg/dL Low alert BEDSIDE GLU 40 Result Comment: Dextrose [address] Orders Followed MANAGEMENT OF PATIENT CARE PER NURSING PROTOCOL Performed By: #### L501.080 #### [facility] Point of Care [address] [place] [address] XR FOOT 3V AP/LAT/OBL Observed: 09/13/2018 Status: F Source: [facility] LT 3:23 PM [facility] REPOSITORY * * *Final Report* * * DATE OF EXAM: Sep 13 2018 3:23PM WRX [id number] - XR FOOT 3V AP/LAT/OBL LT / PROCEDURE REASON: multiple diagnoses * * * * Physician Interpretation * * * * XR FOOT 3V AP/LAT/OBL LT 09/13/2018 3:23 PM INDICATION: Other diabetic neurological complication associated with type 2 diabetes mellitus (HCC) Diabetic ulcer of toe of left foot associated with type 2 diabetes mellitus, with fat layer exposed (HCC) Diabetic ulcer of toe of left foot associated with type 2 diabetes mellitus, with fat layer exposed (HCC) 58 years / Female / [id number] FINDINGS: No acute bony pathology identified. No lytic or blastic lesions. Degenerative changes right foot identified. No pathologic periosteal reaction IMPRESSION: No acute bony pathology Degenerative changes Supervisor Machine Setter: GINGER Transcribe Date/Time: Sep 14 2018 7:04P Dictated by : WALTER RYDER MD This examination was interpreted and the report reviewed and electronically signed by: WALTER RYDER MD on Sep 14 2018 7:05PM EST [id number] Observed: 09/13/2018 Status: COMPLETED Source: [place] 3:09 PM [facility] REPOSITORY HNO ID: [id number] Author: Joan Cardenas (RtGirish Moura Service: (none) Author Type: Garment Fitter Type: Progress Notes Filed: 09/13/2018 3:22 PM Note Text: Radiology Service Progress Note PATIENT NAME: Shoshana Madden DATE OF SERVICE: September 13, 2018 TIME: 3:09 PM PATIENT IDENTITY VERIFICATION COMPLETED USING TWO (2) METHODS: Patient confirmed name verbally and Date of . PATIENT GENDER DATA: Female. status: : No status: NO. PATIENT RELEVANT IMPLANT DATA REVIEWED: Not Applicable RADIOLOGY DEPARTMENT: General X-ray: Exam(s) Completed: Lower Extremity X-Ray(s): Foot, Left: PERIPHERAL IV DATA: Not applicable SIGNED BY: RT Gato September 13, 2018 3:09 PM PROGRESS Observed: 09/13/2018 Status: COMPLETED Source: [place] 2:32 PM [facility] REPOSITORY HNO ID: [id number] Author: Sue Garzon Service: (none) Author Type: Physician Type: Progress Notes Filed: 09/14/2018 10:13 PM Note Text: Subjective: Patient presents to clinic c/o painful toenails of left foot. They state that the nails are especially painful with shoe gear and pressure. Patient also reports new wound to left hallux. Patient states she developed wound to left hallux on Sunday. She feels that her shoes have been rubbing. She states the wound is starting to get black scab. Patient denies any drainage. Patient denies n/v/f/c. No other pedal complaints at this time. Patient states no change in medications or medical history since last visit. Objective: Patient presents to clinic ambulating in old diabetic shoes. Vasc: DP and PT pulses are faint to left lower extremity. CFT is less than 5 seconds to left hallux. Skin temperature is warm to cool proximal to distal bilateral. There is mild edema of left foot Neuro: Protective sensation is absent to the foot and toes when tested with the 5.07 SWM bilateral. The hallux is downgoing bilateral. Derm: Nails 1-5 left are discolored-yellow, thick, crumbly, dystrophic and with subungal debris. There is ulceration of left hallux ipj with black eschar. Ulceration measures 1.2 cm x 1.6 cm x 0.2 cm. There is no exposed tendon capsule or bone. There is mild sivakumar-wound eyrhtmea. Ortho: there are contractures of toes 1-5 left foot. There is bka right. Assessment: (E11.49) Other diabetic neurological complication associated with type 2 diabetes mellitus ([facility]) (primary encounter diagnosis) (E11.621, L97.522) Diabetic ulcer of toe of left foot associated with type 2 diabetes mellitus, with fat layer exposed ([facility]) (B35.1) Onychomycosis Plan: Patient was seen and evaluated. Discussed ulceration of left hallux. This ulceration per patient started this past Sunday and was the result of rubbing in shoes. Today, full thickness debridement was performed wt tissue nippers thru dermis, epidermis and subcutaneous tissue. At this time, no epxposed tendon or bone. Informed patient that having this new wound does risk nonhealing and potential loss of toe. Will get xrays of toe. Will place her on antibiotic as precaution. Will have her apply santyl to ulceration daily. Recommend surgical shoe but patient states that she is unable to wear surgical shoe because if she does, she will fall. Recommend she wear extra depth shoe and will give her gel padding to prevent rubbing. F/u in 1 week fo rulceration Nails 1-5 left were debrided in length and thickness. Patient was instructed on the continued importance of diabetic foot care along with proper diet and keeping their blood sugar under control to prevent complications. Patient is to RTC in 1 week Will cc chart to Dr. Crabtree due to her hx of pad. Sue Garzon DPM PROGRESS Observed: 09/13/2018 Status: COMPLETED Source: [place] 2:03 PM [facility] REPOSITORY HNO ID: [id number] Author: Jhoana Lopez Service: (none) Author Type: (none) Type: Progress Notes Filed: 09/14/2018 10:13 PM Note Text: AMB ROOMING INTAKE FLOWSHEET DATA Risk Screening Do you have concerns about personal safety or safety in the home?: No Patient presents for diabetic foot care. Pt c/o scab on left big toe x 3-4 days no pain noted. Jhoana Lopez CNOV Observed: 09/13/2018 Status: COMPLETED Source: [place] 1:50 PM [facility] REPOSITORY Office Visit (PODIWS) SHOSHANA MADDEN ([id number]) 1960 F Date Time Provider Department 09/13/18 1:50 PM SUE GARZON PODIWS During your visit today, we recorded the following information about you: Jhoana Lopez 09/14/2018 10:13 PM Signed AMB ROOMING INTAKE FLOWSHEET DATA Risk Screening Do you have concerns about personal safety or safety in the home?: No Patient presents for diabetic foot care. Pt c/o scab on left big toe x 3-4 days no pain noted. Jhoana Garzon DPM 09/14/2018 10:13 PM Signed Subjective: Patient presents to clinic c/o painful toenails of left foot. They state that the nails are especially painful with shoe gear and pressure. Patient also reports new wound to left hallux. Patient states she developed wound to left hallux on Sunday. She feels that her shoes have been rubbing. She states the wound is starting to get black scab. Patient denies any drainage. Patient denies n/v/f/c. No other pedal complaints at this time. Patient states no change in medications or medical history since last visit. Objective: Patient presents to clinic ambulating in old diabetic shoes. Vasc: DP and PT pulses are faint to left lower extremity. CFT is less than 5 seconds to left hallux. Skin temperature is warm to cool proximal to distal bilateral. There is mild edema of left foot Neuro: Protective sensation is absent to the foot and toes when tested with the 5.07 SWM bilateral. The hallux is downgoing bilateral. Derm: Nails 1-5 left are discolored-yellow, thick, crumbly, dystrophic and with subungal debris. There is ulceration of left hallux ipj with black eschar. Ulceration measures 1.2 cm x 1.6 cm x 0.2 cm. There is no exposed tendon capsule or bone. There is mild sivakumar-wound eyrhtmea. Ortho: there are contractures of toes 1-5 left foot. There is bka right. Assessment: (E11.49) Other diabetic neurological complication associated with type 2 diabetes mellitus ([facility]) (primary encounter diagnosis) (E11.621, L97.522) Diabetic ulcer of toe of left foot associated with type 2 diabetes mellitus, with fat layer exposed ([facility]) (B35.1) Onychomycosis Plan: Patient was seen and evaluated. Discussed ulceration of left hallux. This ulceration per patient started this past Sunday and was the result of rubbing in shoes. Today, full thickness debridement was performed wth tissue nippers thru dermis, epidermis and subcutaneous tissue. At this time, no epxposed tendon or bone. Informed patient that having this new wound does risk nonhealing and potential loss of toe. Will get xrays of toe. Will place her on antibiotic as precaution. Will have her apply santyl to ulceration daily. Recommend surgical shoe but patient states that she is unable to wear surgical shoe because if she does, she will fall. Recommend she wear extra depth shoe and will give her gel padding to prevent rubbing. F/u in 1 week fo rulceration Nails 1-5 left were debrided in length and thickness. Patient was instructed on the continued importance of diabetic foot care along with proper diet and keeping their blood sugar under control to prevent complications. Patient is to RTC in 1 week Will cc chart to Dr. Crabtree due to her hx of pad. GLENN Rothman RN 09/13/2018 2:53 PM Signed Wear gel toe cap on L great toe. If it makes your wound worse STOP wearing toe cap. Apply Santyl daily to wound of L great toe. Referring Provider: SUE GARZON [[id number]] Allergies As of Date: 09/13/2018 Noted Allergy Reaction IODINE 02/23/2007 2 - Rash LATEX 11/08/2005 2 - Rash MORPHINE 03/28/2013 1 - Mental Status Change PENICILLIN G 01/23/2007 2 - Rash CODEINE 10/16/2007 11 - Vomiting CONTRAST DYE 08/09/2006 8 - GI Upset MAXIDEX (DEXAMETHASONE) 09/03/2007 16 - Unknown Comments: on 03/28/13 patient does not remember reaction nor medication Date Reviewed: 09/13/2018 Reviewed by: Jhonaa Lopez - Fully Assessed Reason for Visit: Diabetic Foot Care [916] Wound Check [133] Cmt: left big toe x 3-4 days Reason For Visit History Recorded Primary Visit Diagnosis:Other diabetic neurological complication associated with type 2 diabetes mellitus ([facility]) [E11.49] Other Visit Diagnoses:Diabetic ulcer of toe of left foot associated with type 2 diabetes mellitus, with fat layer exposed ([facility]) [E11.621, L97.522] Onychomycosis [B35.1] Order(s):clindamycin (CLEOCIN) 300 mg capsuleTake 1 capsule by mouth three times daily for 7 days.Disp: 21 capsuleRfl: 0 XR FOOT GENERAL 3V AP/LAT/OBL LT [[id number]] Order #: [id number] FUTURE collagenase (SANTYL) ointmentApply 1 application to affected area once daily. APPLY TO AFFECTED AREADisp: 90 gRfl: 1 Prescriptions as of 09/13/2018 Sig: ASPIRIN 81 MG CHEWABLE TABLET Take 1 tablet by mouth once d* ATORVASTATIN 40 MG TABLET Take 1 tablet by mouth once d* COMPOUNDED PRESCRIPTION BLOOD PRESSURE CUFF FOR HOME * BLOOD PRESSURE MONITOR KIT 1 Kit as directed. Home Kit, * BLOOD SUGAR DIAGNOSTIC STRIPS Test blood sugar(s) 4 times d* BLOOD-GLUCOSE METER KIT As directed BUPROPION XL 150 MG TAB Take 1 tablet by mouth once d* BUPROPION XL 300 MG 24 HR TAB TAKE ONE TABLET BY MOUTH EVER* CARVEDILOL 25 MG TABLET TAKE ONE TABLET BY MOUTH TWIC* CHOLECALCIFEROL (VITAMIN D3) * Take 1 capsule by mouth once * COMPOUNDED PRESCRIPTION Magnifer for insulin syringe COMPOUNDED PRESCRIPTION Bariatric Mattress (patient a* DIAPER,BRIEF,ADULT,DISPOSABLE size 2X . uses 6 daily DX: * DIGOXIN 125 MCG TABLET Take 1 tablet by mouth once d* DISPOSABLE GLOVES Use as needed for home care, * EASY TOUCH INSULIN SYRINGE 0.* USE TWICE DAILY WITH insulin ESOMEPRAZOLE MAGNESIUM 40 MG * TAKE ONE CAPSULE BY MOUTH MARRY* FUROSEMIDE 40 MG TABLET TAKE ONE TABLET BY MOUTH EVER* GABAPENTIN 600 MG TABLET Take 1 tablet by mouth three * HYDROCHLOROTHIAZIDE 12.5 MG C* TAKE TWO CAPSULES BY MOUTH EV* PEN NEEDLE, DIABETIC 31 GAUGE* Use one needle per dose. 4 pe* INSULIN REGULAR HUMAN U-500 * Inject 80 units every morning* INSULIN REGULAR HUMAN U-500 * Inject 80 units 30 min before* Patient taking differently: Inject 80 units 30 min before* * LANCETS Test blood sugars 4 times earline* LISINOPRIL 20 MG TABLET Take 1 tablet by mouth once d* MAGNESIUM OXIDE 400 MG (241.3* TAKE ONE TABLET BY MOUTH TWIC* MUPIROCIN 2 % TOPICAL OINTMENT Apply 1 application to affect* * NEBULIZER ACCESSORIES KIT Nebulizer accessory kit with * NITROGLYCERIN 0.4 MG SUBLINGU* Dissolve under the tongue. O* NYSTATIN 100,000 UNIT/GRAM TO* Apply 1 application to affect* OXYCODONE 5 MG TABLET Take 5 mg by mouth. WARFARIN 5 MG TABLET 7.5mg Mon,Fri and 5mg all oth* ALBUTEROL SULFATE HFA 90 MCG/* Inhale 2 Puffs as instructed * Patient not taking: Reported on 08/05/2018 CLINDAMYCIN HCL 300 MG CAPSULE Take 1 capsule by mouth three* COLLAGENASE CLOSTRIDIUM HISTO* Apply 1 application to affect* DICLOFENAC 1 % TOPICAL GEL Apply 2 g to affected area fo* Patient not taking: Reported on 08/05/2018 LORAZEPAM 0.5 MG TABLET Take 1 tablet by mouth once d* TRAMADOL 50 MG TABLET Take 1 tablet by mouth every * Problem List As Of Date 09/13/2018 Noted Resolved Obesity, Class III, BMI 40-49.9 (morbid obesity*INVALID FOR* Acute myocardial infarction, unspecified site, *INVALID FOR*07/24/2017 Hyperlipemia, mixed [E78.2] INVALID FOR* More... Ulcer of heel and midfoot (HCC) [L97.409] INVALID FOR*07/24/2017 CARBUNCLE ARM (ABOVE WRIST) [L02.439, L02.429] INVALID FOR*07/24/2017 CARBUNCLE FLANK [L02.229] INVALID FOR*07/24/2017 Blood in stool [K92.1] INVALID FOR*07/24/2017 Atrial fibrillation [I48.91] INVALID FOR*10/18/2015 Asthma-chronic obstructive pulmonary disease ov* More... Contusion of foot [S90.30XA] INVALID FOR*07/24/2017 Hereditary and idiopathic peripheral neuropathy*INVALID FOR* Cannabis abuse, episodic [F12.10] INVALID FOR*07/24/2017 Eating disorder, unspecified [F50.9] INVALID FOR*07/24/2017 CERVICALGIA [M54.2] Carbuncle and furuncle of buttock [L02.33] INVALID FOR*07/24/2017 Essential hypertension [I10] INVALID FOR* More... Dermatophytosis of nail [B35.1] INVALID FOR*07/24/2017 Unspecified local infection of skin and subcuta*INVALID FOR*07/24/2017 More... Other malaise and fatigue [R53.81, R53.83] INVALID FOR*07/24/2017 ABNORMALITY OF GAIT [R26.9] INVALID FOR* WEAKNESS MUSCLE [M62.81] INVALID FOR* Multiple and unspecified open wound of lower li*INVALID FOR*07/24/2017 RESTLESS LEGS SYNDROME [G25.81] INVALID FOR* Vitamin D deficiency [E55.9] INVALID FOR* Neoplasm of unspecified nature of bone, soft ti*INVALID FOR*07/24/2017 Cellulitis and abscess of leg, except foot [L03*INVALID FOR*07/24/2017 Other hammer toe (acquired) [M20.40] INVALID FOR*07/24/2017 Obstructive chronic bronchitis without exacerba*INVALID FOR*03/07/2017 More... 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 Type II or unspecified type diabetes mellitus w*INVALID FOR*04/20/2016 SUMMARY [V999.95] INVALID FOR*07/24/2017 More... CAD (coronary artery disease) [I25.10] INVALID FOR* More... AF (atrial fibrillation) [I48.91] INVALID FOR*04/16/2017 More... HTN (hypertension) [I10] INVALID FOR*07/24/2017 More... Heart failure/ Ischemic Cardiomyopathy [I50.9] INVALID FOR* More... Hypothyroid [E03.9] INVALID FOR*03/22/2016 More... Venous ulcer of leg (HCC) [I83.009, L97.909] INVALID FOR*07/24/2017 More... More... SUMMARY [V999.95] INVALID FOR*12/29/2013 More... Cellulitis of lower limb [L03.119] INVALID FOR*07/24/2017 More... Acute renal insufficiency [N28.9] INVALID FOR*07/24/2017 More... Chest pain at rest [R07.9] INVALID FOR*07/24/2017 More... Decubitus skin ulcer [L89.90] INVALID FOR*07/24/2017 More... Hyponatremia [E87.1] INVALID FOR*07/24/2017 More... Diarrhea [R19.7] INVALID FOR*07/24/2017 More... Debility [R53.81] INVALID FOR* CKD (chronic kidney disease) stage 3, GFR 30-59*INVALID FOR* Microalbuminuria [R80.9] Knee pain [M25.569] INVALID FOR* Peripheral vascular disease [I73.9] INVALID FOR* More... Depression/ ? Bipolar Disorder [F32.9] INVALID FOR* More... More... Oliguria [R34] INVALID FOR*06/18/2013 More... Atherosclerosis of nonautologous biological byp*INVALID FOR*07/24/2017 Wound infection after surgery [T81.49XA] INVALID FOR*07/24/2017 More... Shortness of breath [R06.02] INVALID FOR*07/24/2017 More... LBBB (left bundle branch block) [I44.7] INVALID FOR* LV dysfunction [I51.9] INVALID FOR* Atherosclerosis of autologous vein bypass graft*INVALID FOR* Chronic anticoagulation [Z79.01] INVALID FOR* More... Admission for therapeutic drug monitoring [Z51.*INVALID FOR*07/24/2017 More... Heart failure, systolic, chronic [I50.22] INVALID FOR*03/15/2018 More... Biventricular ICD (implantable cardioverter-def*INVALID FOR* H/O: CVA (cerebrovascular accident) [Z86.73] INVALID FOR* MAX (acute kidney injury) (HCC) [N17.9] INVALID FOR*07/24/2017 More... More... Heart failure, systolic, acute on chronic (HCC)*INVALID FOR*07/24/2017 More... Discharge planning issues [Z02.9] INVALID FOR*03/05/2017 More... Presence of stent in right coronary artery [Z95*INVALID FOR* Presence of bare metal stent in LAD coronary ar*INVALID FOR* Chronic atrial fibrillation (HCC) [I48.2] INVALID FOR* Depressive disorder, not elsewhere classified [* Uncontrolled type 2 diabetes mellitus with diab*INVALID FOR* Morbid obesity due to excess calories (HCC) [E6*INVALID FOR*04/16/2017 History of right above knee amputation (HCC) [Z* More... Pleural effusion, bilateral [J90] INVALID FOR* More... Chronic renal insufficiency [N18.9] INVALID FOR* Endometrial cancer (HCC) [C54.1] INVALID FOR* More... Pulmonary HTN [I27.20] INVALID FOR* GERD (gastroesophageal reflux disease) [K21.9] INVALID FOR* Uterine cancer (HCC) [C55] INVALID FOR* More... Other instructions from your clinician: Wear gel toe cap on L great toe. If it makes your wound worse STOP wearing toe cap. Apply Santyl daily to wound of L great toe. Prescriptions ordered this encounter Disp Refills Start End CLINDAMYCIN HCL 300 MG CAPSULE 21 c* 0 09/13/2018 09/20/2018 Route: ORAL Sig: Take 1 capsule by mouth three times daily for 7 days. COLLAGENASE CLOSTRIDIUM HISTOLYTICUM* 90 g 1 09/13/2018 10/13/2018 Route: TOPICAL Sig: Apply 1 application to affected area once daily. APPLY TO AFFECTED AREA Follow-up and Disposition History Recorded Encounter Status:Closed by SUE GARZON DPM on 09/14/18 PROGRESS Observed: 08/19/2018 Status: COMPLETED Source: [place] 4:03 PM [facility] REPOSITORY HNO ID: [id number] Author: Carmella Crabtree Service: (none) Author Type: Physician Type: Progress Notes Filed: 08/19/2018 4:03 PM Note Text: This office note has been dictated. Carmella Crabtree DO CNOV Observed: 08/19/2018 Status: COMPLETED Source: [place] 11:30 AM [facility] REPOSITORY Office Visit (VASSWS) SHOSHANA MADDEN ([id number]) 1960 F Date Time Provider Department 08/19/18 11:30 AM CARMELLA CRABTREE VASNYDIAS During your visit today, we recorded the following information about you: Pulse Blood pressure 79/minute 113/76 Carmella Crabtree DO 08/19/2018 4:03 PM Signed This office note has been dictated. Carmella Crabtree DO Referring Provider: CARMELLA CRABTREE [[id number]] Allergies As of Date: 08/19/2018 Noted Allergy Reaction IODINE 02/23/2007 2 - Rash LATEX 11/08/2005 2 - Rash MORPHINE 03/28/2013 1 - Mental Status Change PENICILLIN G 01/23/2007 2 - Rash CODEINE 10/16/2007 11 - Vomiting CONTRAST DYE 08/09/2006 8 - GI Upset MAXIDEX (DEXAMETHASONE) 09/03/2007 16 - Unknown Comments: on 03/28/13 patient does not remember reaction nor medication Date Reviewed: 08/19/2018 Reviewed by: David Sparrow RN - Fully Assessed Reason for Visit: Established Patient [175] Primary Visit Diagnosis:Peripheral arterial disease (HCC) [I73.9] Order(s):US LEG ARTERIAL PERIPH UNL [facility] [[id number]] Order #: [id number] FUTURE PVR ANK PRESS JIAN [facility] [[id number]] Order #: [id number] FUTURE Prescriptions as of 08/19/2018 Sig: LISINOPRIL 20 MG TABLET Take 1 tablet by mouth once d* FUROSEMIDE 40 MG TABLET TAKE ONE TABLET BY MOUTH EVER* CARVEDILOL 25 MG TABLET TAKE ONE TABLET BY MOUTH TWIC* ATORVASTATIN 40 MG TABLET Take 1 tablet by mouth once d* BUPROPION XL 150 MG TAB Take 1 tablet by mouth once d* GABAPENTIN 600 MG TABLET Take 1 tablet by mouth three * OXYCODONE 5 MG TABLET Take 5 mg by mouth. COMPOUNDED PRESCRIPTION Bariatric Mattress (patient a* BLOOD SUGAR DIAGNOSTIC STRIPS Test blood sugar(s) 4 times d* INSULIN REGULAR HUMAN U-500 * Inject 80 units 30 min before* Patient taking differently: Inject 80 units 30 min before* BUPROPION XL 300 MG 24 HR TAB TAKE ONE TABLET BY MOUTH EVER* WARFARIN 5 MG TABLET 7.5mg Mon,Fri and 5mg all oth* INSULIN REGULAR HUMAN U-500 * Inject 80 units every morning* BLOOD PRESSURE MONITOR KIT 1 Kit as directed. Home Kit, * DIGOXIN 125 MCG TABLET Take 1 tablet by mouth once d* COMPOUNDED PRESCRIPTION BLOOD PRESSURE CUFF FOR HOME * LORAZEPAM 0.5 MG TABLET Take 1 tablet by mouth once d* CHOLECALCIFEROL (VITAMIN D3) * Take 1 capsule by mouth once * ESOMEPRAZOLE MAGNESIUM 40 MG * TAKE ONE CAPSULE BY MOUTH MARRY* HYDROCHLOROTHIAZIDE 12.5 MG C* TAKE TWO CAPSULES BY MOUTH EV* MAGNESIUM OXIDE 400 MG (241.3* TAKE ONE TABLET BY MOUTH TWIC* TRAMADOL 50 MG TABLET Take 1 tablet by mouth every * PEN NEEDLE, DIABETIC 31 GAUGE* Use one needle per dose. 4 pe* EASY TOUCH INSULIN SYRINGE 0.* USE TWICE DAILY WITH insulin ALBUTEROL SULFATE HFA 90 MCG/* Inhale 2 Puffs as instructed * Patient not taking: Reported on 08/05/2018 NYSTATIN 100,000 UNIT/GRAM TO* Apply 1 application to affect* COMPOUNDED PRESCRIPTION Magnifer for insulin syringe MUPIROCIN 2 % TOPICAL OINTMENT Apply 1 application to affect* BLOOD-GLUCOSE METER KIT As directed NITROGLYCERIN 0.4 MG SUBLINGU* Dissolve under the tongue. O* DISPOSABLE GLOVES Use as needed for home care, * DICLOFENAC 1 % TOPICAL GEL Apply 2 g to affected area fo* Patient not taking: Reported on 08/05/2018 DIAPER,BRIEF,ADULT,DISPOSABLE size 2X . uses 6 daily DX: * ASPIRIN 81 MG CHEWABLE TABLET Take 1 tablet by mouth once d* * NEBULIZER ACCESSORIES KIT Nebulizer accessory kit with * * LANCETS Test blood sugars 4 times earline* Problem List As Of Date 08/19/2018 Noted Resolved Obesity, Class III, BMI 40-49.9 (morbid obesity*INVALID FOR* Priority: H Acute myocardial infarction, unspecified site, *INVALID FOR*07/24/2017 Hyperlipemia, mixed [E78.2] INVALID FOR* More... Ulcer of heel and midfoot (HCC) [L97.409] INVALID FOR*07/24/2017 CARBUNCLE ARM (ABOVE WRIST) [L02.439, L02.429] INVALID FOR*07/24/2017 CARBUNCLE FLANK [L02.229] INVALID FOR*07/24/2017 Blood in stool [K92.1] INVALID FOR*07/24/2017 Atrial fibrillation [I48.91] INVALID FOR*10/18/2015 Asthma-chronic obstructive pulmonary disease ov* More... Contusion of foot [S90.30XA] INVALID FOR*07/24/2017 Hereditary and idiopathic peripheral neuropathy*INVALID FOR* Cannabis abuse, episodic [F12.10] INVALID FOR*07/24/2017 Eating disorder, unspecified [F50.9] INVALID FOR*07/24/2017 CERVICALGIA [M54.2] Carbuncle and furuncle of buttock [L02.33] INVALID FOR*07/24/2017 Essential hypertension [I10] INVALID FOR* More... Dermatophytosis of nail [B35.1] INVALID FOR*07/24/2017 Unspecified local infection of skin and subcuta*INVALID FOR*07/24/2017 More... Other malaise and fatigue [R53.81, R53.83] INVALID FOR*07/24/2017 ABNORMALITY OF GAIT [R26.9] INVALID FOR* WEAKNESS MUSCLE [M62.81] INVALID FOR* Multiple and unspecified open wound of lower li*INVALID FOR*07/24/2017 RESTLESS LEGS SYNDROME [G25.81] INVALID FOR* Vitamin D deficiency [E55.9] INVALID FOR* Neoplasm of unspecified nature of bone, soft ti*INVALID FOR*07/24/2017 Cellulitis and abscess of leg, except foot [L03*INVALID FOR*07/24/2017 Other hammer toe (acquired) [M20.40] INVALID FOR*07/24/2017 Obstructive chronic bronchitis without exacerba*INVALID FOR*03/07/2017 More... 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 Type II or unspecified type diabetes mellitus w*INVALID FOR*04/20/2016 SUMMARY [V999.95] INVALID FOR*07/24/2017 Priority: Severe More... CAD (coronary artery disease) [I25.10] INVALID FOR* Priority: B More... AF (atrial fibrillation) [I48.91] INVALID FOR*04/16/2017 Priority: B More... HTN (hypertension) [I10] INVALID FOR*07/24/2017 Priority: D More... Heart failure/ Ischemic Cardiomyopathy [I50.9] INVALID FOR* More... Hypothyroid [E03.9] INVALID FOR*03/22/2016 Priority: F More... Venous ulcer of leg (HCC) [I83.009, L97.909] INVALID FOR*07/24/2017 More... More... SUMMARY [V999.95] INVALID FOR*12/29/2013 More... Cellulitis of lower limb [L03.119] INVALID FOR*07/24/2017 Priority: E More... Acute renal insufficiency [N28.9] INVALID FOR*07/24/2017 More... Chest pain at rest [R07.9] INVALID FOR*07/24/2017 More... Decubitus skin ulcer [L89.90] INVALID FOR*07/24/2017 More... Hyponatremia [E87.1] INVALID FOR*07/24/2017 More... Diarrhea [R19.7] INVALID FOR*07/24/2017 More... Debility [R53.81] INVALID FOR* CKD (chronic kidney disease) stage 3, GFR 30-59*INVALID FOR* Microalbuminuria [R80.9] Knee pain [M25.569] INVALID FOR* Peripheral vascular disease [I73.9] INVALID FOR* Priority: E More... Depression/ ? Bipolar Disorder [F32.9] INVALID FOR* Priority: G More... More... Oliguria [R34] INVALID FOR*06/18/2013 More... Atherosclerosis of nonautologous biological byp*INVALID FOR*07/24/2017 Wound infection after surgery [T81.49XA] INVALID FOR*07/24/2017 More... Shortness of breath [R06.02] INVALID FOR*07/24/2017 More... LBBB (left bundle branch block) [I44.7] INVALID FOR* Priority: D LV dysfunction [I51.9] INVALID FOR* Atherosclerosis of autologous vein bypass graft*INVALID FOR* Chronic anticoagulation [Z79.01] INVALID FOR* Priority: B More... Admission for therapeutic drug monitoring [Z51.*INVALID FOR*07/24/2017 Priority: B More... Heart failure, systolic, chronic [I50.22] INVALID FOR*03/15/2018 Priority: A More... Biventricular ICD (implantable cardioverter-def*INVALID FOR* H/O: CVA (cerebrovascular accident) [Z86.73] INVALID FOR* MAX (acute kidney injury) (HCC) [N17.9] INVALID FOR*07/24/2017 More... More... Heart failure, systolic, acute on chronic (HCC)*INVALID FOR*07/24/2017 Priority: B More... Discharge planning issues [Z02.9] INVALID FOR*03/05/2017 More... Presence of stent in right coronary artery [Z95*INVALID FOR* Presence of bare metal stent in LAD coronary ar*INVALID FOR* Chronic atrial fibrillation (HCC) [I48.2] INVALID FOR* Depressive disorder, not elsewhere classified [* Uncontrolled type 2 diabetes mellitus with diab*INVALID FOR* Morbid obesity due to excess calories (HCC) [E6*INVALID FOR*04/16/2017 History of right above knee amputation (HCC) [Z* More... Pleural effusion, bilateral [J90] INVALID FOR* More... Chronic renal insufficiency [N18.9] INVALID FOR* Endometrial cancer (HCC) [C54.1] INVALID FOR* More... Pulmonary HTN [I27.20] INVALID FOR* GERD (gastroesophageal reflux disease) [K21.9] INVALID FOR* Uterine cancer (HCC) [C55] INVALID FOR* More... Encounter Status:Closed by CARMELLA CRABTREE DO on 08/19/18 PROGRESS Observed: 08/19/2018 Status: COMPLETED Source: [place] 12:00 AM [facility] REPOSITORY HNO ID: [id number] Author: Carmella Crabtree Service: Vascular Surgery Author Type: Physician Type: Progress Notes Filed: 08/23/2018 11:16 AM Note Text: NAME: SHOSHANA MADDEN [facility] NO: [id number] DATE OF SERVICE: 08/19/2018 Subjective: Ms. Madden is here to follow up on peripheral arterial disease. She has a history of a right AKA and a left fem- peroneal bypass. She is primarily in a wheelchair since our last visit. She did undergo a hysterectomy and panniculectomy with BEE BREEDER/ONC at [place] and finally just had her incision heal. Overall, she denies any lower extremity complaints. No ulcerations or tissue loss. Her vascular lab testing is stable. Her PVR is biphasic with waveforms at borderline at rest, which is unchanged, and her arterial duplex is unchanged. She did have some mild elevated velocities at the distal anastomosis, however, this is stable from her prior duplexes. Assessment/Plan: Peripheral arterial disease, status post femoral-tibial bypass. Reviewed the findings with Ms. Madden. Recommend she continue her current medications. She will followup in six months with repeat imaging, or sooner with any concerns. Carmella Crabtree D.O. KB/[id number] Audio #: [id number] Date Dictated: 08/19/2018 15:54:25 Date Typed: 08/23/2018 06:07:14 Date Revised: KALYANI Observed: 08/16/2018 Status: COMPLETED Source: [place] 12:00 AM [facility] REPOSITORY Telephone (PODIWS) MARYANNESHOSHANA Addison ([id number]) 1960 F Date Time Provider Department 08/16/18 SUE GARZON During your visit today, we recorded the following information about you: Casandra Rodr 08/16/2018 12:04 PM Signed Patient is requesting a script for her diabetic shoes please advise the patient Sue Garzon DPM 08/16/2018 10:46 PM Signed Order signed for diabetic shoes. Please call patient to inform. 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] Other Visit Diagnosis:History of amputation of lower extremity through tibia and fibula, unspecified laterality (HCC) [Z89.519] Order(s):DIAB SHOE FOR DENSITY INSERT [[id number]] Order #: [id number] Prescriptions as of 08/16/2018 Sig: LISINOPRIL 20 MG TABLET Take 1 tablet by mouth once d* FUROSEMIDE 40 MG TABLET TAKE ONE TABLET BY MOUTH EVER* CARVEDILOL 25 MG TABLET TAKE ONE TABLET BY MOUTH TWIC* ATORVASTATIN 40 MG TABLET Take 1 tablet by mouth once d* BUPROPION XL 150 MG TAB Take 1 tablet by mouth once d* GABAPENTIN 600 MG TABLET Take 1 tablet by mouth three * OXYCODONE 5 MG TABLET Take 5 mg by mouth. COMPOUNDED PRESCRIPTION Bariatric Mattress (patient a* BLOOD SUGAR DIAGNOSTIC STRIPS Test blood sugar(s) 4 times d* INSULIN REGULAR HUMAN U-500 * Inject 80 units 30 min before* Patient taking differently: Inject 80 units 30 min before* BUPROPION XL 300 MG 24 HR TAB TAKE ONE TABLET BY MOUTH EVER* WARFARIN 5 MG TABLET 7.5mg Mon,Fri and 5mg all oth* INSULIN REGULAR HUMAN U-500 * Inject 80 units every morning* BLOOD PRESSURE MONITOR KIT 1 Kit as directed. Home Kit, * DIGOXIN 125 MCG TABLET Take 1 tablet by mouth once d* COMPOUNDED PRESCRIPTION BLOOD PRESSURE CUFF FOR HOME * LORAZEPAM 0.5 MG TABLET Take 1 tablet by mouth once d* CHOLECALCIFEROL (VITAMIN D3) * Take 1 capsule by mouth once * ESOMEPRAZOLE MAGNESIUM 40 MG * TAKE ONE CAPSULE BY MOUTH MARRY* HYDROCHLOROTHIAZIDE 12.5 MG C* TAKE TWO CAPSULES BY MOUTH EV* MAGNESIUM OXIDE 400 MG (241.3* TAKE ONE TABLET BY MOUTH TWIC* TRAMADOL 50 MG TABLET Take 1 tablet by mouth every * PEN NEEDLE, DIABETIC 31 GAUGE* Use one needle per dose. 4 pe* EASY TOUCH INSULIN SYRINGE 0.* USE TWICE DAILY WITH insulin ALBUTEROL SULFATE HFA 90 MCG/* Inhale 2 Puffs as instructed * Patient not taking: Reported on 08/05/2018 NYSTATIN 100,000 UNIT/GRAM TO* Apply 1 application to affect* COMPOUNDED PRESCRIPTION Magnifer for insulin syringe MUPIROCIN 2 % TOPICAL OINTMENT Apply 1 application to affect* BLOOD-GLUCOSE METER KIT As directed NITROGLYCERIN 0.4 MG SUBLINGU* Dissolve under the tongue. O* DISPOSABLE GLOVES Use as needed for home care, * DICLOFENAC 1 % TOPICAL GEL Apply 2 g to affected area fo* Patient not taking: Reported on 08/05/2018 DIAPER,BRIEF,ADULT,DISPOSABLE size 2X . uses 6 daily DX: * ASPIRIN 81 MG CHEWABLE TABLET Take 1 tablet by mouth once d* * NEBULIZER ACCESSORIES KIT Nebulizer accessory kit with * * LANCETS Test blood sugars 4 times earline* Problem List As Of Date 08/16/2018 Noted Resolved Obesity, Class III, BMI 40-49.9 (morbid obesity*INVALID FOR* Priority: H Acute myocardial infarction, unspecified site, *INVALID FOR*07/24/2017 Hyperlipemia, mixed [E78.2] INVALID FOR* More... Ulcer of heel and midfoot (HCC) [L97.409] INVALID FOR*07/24/2017 CARBUNCLE ARM (ABOVE WRIST) [L02.439, L02.429] INVALID FOR*07/24/2017 CARBUNCLE FLANK [L02.229] INVALID FOR*07/24/2017 Blood in stool [K92.1] INVALID FOR*07/24/2017 Atrial fibrillation [I48.91] INVALID FOR*10/18/2015 Asthma-chronic obstructive pulmonary disease ov* More... Contusion of foot [S90.30XA] INVALID FOR*07/24/2017 Hereditary and idiopathic peripheral neuropathy*INVALID FOR* Cannabis abuse, episodic [F12.10] INVALID FOR*07/24/2017 Eating disorder, unspecified [F50.9] INVALID FOR*07/24/2017 CERVICALGIA [M54.2] Carbuncle and furuncle of buttock [L02.33] INVALID FOR*07/24/2017 Essential hypertension [I10] INVALID FOR* More... Dermatophytosis of nail [B35.1] INVALID FOR*07/24/2017 Unspecified local infection of skin and subcuta*INVALID FOR*07/24/2017 More... Other malaise and fatigue [R53.81, R53.83] INVALID FOR*07/24/2017 ABNORMALITY OF GAIT [R26.9] INVALID FOR* WEAKNESS MUSCLE [M62.81] INVALID FOR* Multiple and unspecified open wound of lower li*INVALID FOR*07/24/2017 RESTLESS LEGS SYNDROME [G25.81] INVALID FOR* Vitamin D deficiency [E55.9] INVALID FOR* Neoplasm of unspecified nature of bone, soft ti*INVALID FOR*07/24/2017 Cellulitis and abscess of leg, except foot [L03*INVALID FOR*07/24/2017 Other hammer toe (acquired) [M20.40] INVALID FOR*07/24/2017 Obstructive chronic bronchitis without exacerba*INVALID FOR*03/07/2017 More... 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 Type II or unspecified type diabetes mellitus w*INVALID FOR*04/20/2016 SUMMARY [V999.95] INVALID FOR*07/24/2017 Priority: Severe More... CAD (coronary artery disease) [I25.10] INVALID FOR* Priority: B More... AF (atrial fibrillation)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 ulcer of leg (HCC) [I83.009, L97.909] INVALID FOR*07/24/2017 More... More... SUMMARY [V999.95] INVALID FOR*12/29/2013 More... Cellulitis of lower limb [L03.119] INVALID FOR*07/24/2017 Priority: E More... Acute renal insufficiency [N28.9] INVALID FOR*07/24/2017 More... Chest pain at rest [R07.9] INVALID FOR*07/24/2017 More... Decubitus skin ulcer [L89.90] INVALID FOR*07/24/2017 More... Hyponatremia [E87.1] INVALID FOR*07/24/2017 More... Diarrhea [R19.7] INVALID FOR*07/24/2017 More... Debility [R53.81] INVALID FOR* CKD (chronic kidney disease) stage 3, GFR 30-59*INVALID FOR* Microalbuminuria [R80.9] Knee pain [M25.569] INVALID FOR* Peripheral vascular disease [I73.9] INVALID FOR* Priority: E More... Depression/ ? Bipolar Disorder [F32.9] INVALID FOR* Priority: G More... More... Oliguria [R34] INVALID FOR*06/18/2013 More... Atherosclerosis of nonautologous biological byp*INVALID FOR*07/24/2017 Wound infection after surgery [T81.49XA] INVALID FOR*07/24/2017 More... Shortness of breath [R06.02] INVALID FOR*07/24/2017 More... LBBB (left bundle branch block) [I44.7] INVALID FOR* Priority: D LV dysfunction [I51.9] INVALID FOR* Atherosclerosis of autologous vein bypass graft*INVALID FOR* Chronic anticoagulation [Z79.01] INVALID FOR* Priority: B More... Admission for therapeutic drug monitoring [Z51.*INVALID FOR*07/24/2017 Priority: B More... Heart failure, systolic, chronic [I50.22] INVALID FOR*03/15/2018 Priority: A More... Biventricular ICD (implantable cardioverter-def*INVALID FOR* H/O: CVA (cerebrovascular accident) [Z86.73] INVALID FOR* MAX (acute kidney injury) (HCC) [N17.9] INVALID FOR*07/24/2017 More... More... Heart failure, systolic, acute on chronic (HCC)*INVALID FOR*07/24/2017 Priority: B More... Discharge planning issues [Z02.9] INVALID FOR*03/05/2017 More... Presence of stent in right coronary artery [Z95*INVALID FOR* Presence of bare metal stent in LAD coronary ar*INVALID FOR* Chronic atrial fibrillation (HCC) [I48.2] INVALID FOR* Depressive disorder, not elsewhere classified [* Uncontrolled type 2 diabetes mellitus with diab*INVALID FOR* Morbid obesity due to excess calories (HCC) [E6*INVALID FOR*04/16/2017 History of right above knee amputation (HCC) [Z* More... Pleural effusion, bilateral [J90] INVALID FOR* More... Chronic renal insufficiency [N18.9] INVALID FOR* Endometrial cancer (HCC) [C54.1] INVALID FOR* More... Pulmonary HTN [I27.20] INVALID FOR* GERD (gastroesophageal reflux disease) [K21.9] INVALID FOR* Uterine cancer (HCC) [C55] INVALID FOR* More... Encounter Status:Closed by KATHARINE SHEPHERD on 08/23/18 PROGRESS Observed: 07/17/2018 Status: COMPLETED Source: [place] 3:56 PM [facility] REPOSITORY [facility] ID: [id number] Author: Urvashi Rivas Service: (none) Author Type: (none) Type: Progress Notes Filed: 07/17/2018 3:56 PM Note Text: Radiology Service Progress Note PATIENT NAME: Shoshana Madden DATE OF SERVICE: July 17, 2018 TIME: 3:56 PM PATIENT IDENTITY VERIFICATION COMPLETED USING TWO (2) METHODS: Patient confirmed name verbally and Date of . PATIENT GENDER DATA: Female. status: : No status: NO. PATIENT RELEVANT IMPLANT DATA REVIEWED: Not Applicable RADIOLOGY DEPARTMENT: CT; Exam(s) Completed: Abdomen/Pelvis PERIPHERAL IV DATA: Not applicable SIGNED BY: Urvashi Rivas July 17, 2018 3:[address] ABD/PEL WO IVCON Observed: 07/17/2018 Status: F Source: [place] 3:17 PM [facility] REPOSITORY * * *Final Report* * * DATE OF EXAM: Jul 17 2018 3:17PM [facility] [id number] - CT ABD/PEL WO IVCKATHY / PROCEDURE REASON: ABD / PEL * * * * Physician Interpretation * * * * EXAMINATION: CT ABDOMEN AND PELVIS WITHOUT IV CONTRAST CLINICAL HISTORY: ABD / PEL pt refuses iodien allergic to all forms,pelvic pain,sheri,maddi,bso,paniculectomy kmr TECHNIQUE: Non-IV contrast imaging of the abdomen and pelvis was performed using standard technique, scanning from just above the dome of the diaphragm to the symphysis pubis. Unenhanced imaging is limited for the evaluation of some intra-abdominal and pelvic pathology. MQ: [id number] CT Radiation dose: Integrated Dose-length product (DLP) for this visit = 1134 mGy*cm. CT Dose Reduction Employed: Automated exposure control(AEC) and iterative recon COMPARISON: 12/26/2017 RESULT: Liver: No mass. Homogeneous texture. Biliary: No ductal dilatation is seen. Gallbladder is unremarkable. Spleen: Spleen is unremarkable. Pancreas: No mass or duct dilation. Adrenals: LEFT adrenal nodule unchanged in size or appearance CT number compatible with adenoma.. Kidneys: There is 1.3 cm exophytic fatty nodule projecting from the lateral aspect of the LEFT kidney image 77 thought to represent an angiomyolipoma this was present previously and appears unchanged GI tract: No bowel dilatation is seen. No evidence of obstruction. Mild diverticulosis but no evidence of diverticulitis Lymph nodes: Subcentimeter nodes in the para-aortic area noted. No enlarged nodes are seen in the para-aortic region. No enlarged lymph nodes are seen in the iliac areas at this time. Mesentery/Peritoneum: No ascites or mass. Vasculature: No evidence of dilatation of the abdominal aorta. Inferior vena cava filter again noted with the upper tip just below the level of the origin of the LEFT renal vein Pelvis: No mass, ascites or fluid collections. Bones/Soft Tissues: Marked indistinctness in the anterior abdominal wall probably related to interval ventriculostomy Lower thorax: Tiny right-sided pleural effusion remains and possible trace of LEFT pleural effusion. IMPRESSION: 1. Changes in the anterior abdominal wall probably related to interval surgery 2. No adenopathy is seen at this time 3. LEFT adrenal nodule compatible with adenoma unchanged 4. 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 Marked reduction in the bilateral pleural effusions 6. See discussion in result section of report for remainder of findings Supervisor Machine Setter: GINGER Transcribe Date/Time: Jul 17 2018 3:59P Dictated by : ADALID KIMBROUGH DO This examination was interpreted and the report reviewed and electronically signed by: ADALID KIMBROUGH DO on Jul 17 2018 4:08PM EST [id number] PROGRESS Observed: 07/09/2018 Status: COMPLETED Source: [place] 1:33 PM [facility] REPOSITORY [facility] ID: [id number] Author: Pepe Ordonez Service: (none) Author Type: Physician Type: Progress Notes Filed: 07/09/2018 5:49 PM Note Text: PERTINENT CARDIAC HISTORY ASHD - PCI LAD, RCA 2006 Atrial fib - PAF PAD - right AKA 2012 DM Obesity HTN HL CRF Cardiomyopathy - nonischemic, AV node ablation and LANDMAN-D 2012 ADHERENCE TO GUIDELINES ZACHARY-I or ARB for HF with prior LVEF<40 (NQF 0081) - met ASA or Plavix for ASHD (NQF 0067) - met Beta jeremie for ASHD with prior ND or prior LVEF<40 (NQF 0070) - met Beta ejremie for HF with prior LVEF<40 (NQF 0083) - met ZACHARY-I or ARB for ASHD with DM or prior LVEF<40 (NQF 0066) - met Statin therapy for ASHD or FHL or DM - met BMI documented and plan if >25 (NQF 0421) - lifestyle recommendation form Tobacco use screening and referral (NQF 0028) - lifestyle recommendation form Recommendation for whole food, plant based diet - lifestyle recommendation form CLINICAL IMPRESSION/PLAN: Shoshana Madden is doing well. She is well compensated. She has been advised to call about the pacemaker follow-up. She will continue her current medication. Blood pressure is well-controlled. I asked that she have basic profile checked. She has progressive renal insufficiency. I will see her in 6 months or as needed. Written and verbal health teaching given to patient, patient verbalizes understanding and agrees with treatment plan. DIAGNOSIS FOR VISIT: ASHD Cardiomyopathy HISTORY OF PRESENT ILLNESS Shoshana Madden returns for follow-up of multiple cardiac issues, as noted above. She recently underwent a hysterectomy and resection of her pannus. This was not complicated by any cardiac issues. She denies chest pain. She's had no orthopnea, edema, syncope, palpitations, TIAs, amaurosis or claudication. She is pleased with her surgical result ALLERGIES: ALLERGIES Allergen Reactions - Iodine Rash - Latex Rash - Morphine Mental Status Change - Penicillin G Rash - Codeine Vomiting - Contrast Dye GI Upset - Maxidex [Dexamethas* Unknown on 03/28/13 patient does not remember reaction nor medication CURRENT OUTPATIENT MEDICATIONS: oxyCODONE IR (ROXICODONE) 5 mg immediate release tablet Take 5 mg by mouth. COMPOUNDED PRESCRIPTION Bariatric Mattress (patient already has bed) Dx: C66.01, M54.2, R26.9, M62.81, I50.40, Z86.73 blood sugar diagnostic (BLOOD GLUCOSE TEST) test strip Test blood sugar(s) 4 times daily. Dx: Other DM Code E11.40 Insulin: Yes insulin regular hum U-500 conc (HUMULIN R U-500, CONC, KWIKPEN) 500 unit/mL (3 mL) inpn Inject 80 units 30 min before breakfast and 70 units 30 min before dinner buPROPion XL (WELLBUTRIN XL) 300 mg 24 hr tablet TAKE ONE TABLET BY MOUTH EVERY DAY warfarin (COUMADIN) 5 mg tablet 7.5mg Mon,Fri and 5mg all other days or as directed insulin regular hum U-500 conc (HUMULIN R U-500, CONC, KWIKPEN) 500 unit/mL (3 mL) inpn Inject 80 units every morning and 70 units every evening Blood Pressure Monitor kit 1 Kit as directed. Home Kit, Monitor and large BP cuff (check for proper sizing) Diagnosis: HTN: I10, CAD I25.10, CHF 150.22 digoxin (LANOXIN) 125 mcg tablet Take 1 tablet by mouth once daily. Blood Pressure Cuff - Home Use BLOOD PRESSURE CUFF FOR HOME USE. DX: HTN I10 LORazepam (ATIVAN) 0.5 mg tab Take 1 tablet by mouth once daily as needed for up to 90 days. cholecalciferol, Vitamin D3, (VITAMIN D3) 50,000 unit cap capsule Take 1 capsule by mouth once each week. esomeprazole (NEXIUM) 40 mg capsule TAKE ONE CAPSULE BY MOUTH EVERY DAY on an empty stomach Hydrochlorothiazide 12.5 mg capsule TAKE TWO CAPSULES BY MOUTH EVERY DAY magnesium oxide (MAG-OX) 400 mg tablet TAKE ONE TABLET BY MOUTH TWICE DAILY traMADol (ULTRAM) 50 mg tablet Take 1 tablet by mouth every 6 hours for 90 days. A gabapentin (NEURONTIN) 600 mg tablet Take 1 tablet by mouth three times daily. May take one additional tablet at bedtime. atorvastatin (LIPITOR) 40 mg tablet TAKE ONE TABLET BY MOUTH EVERY DAY furosemide (LASIX) 40 mg tablet Take 1 tablet by mouth once daily. For fluid retention and leg swelling. May add extra pill daily if needed for retention lisinopril (ZESTRIL, PRINIVIL) 20 mg tablet Take 1 tablet by mouth once daily. carvedilol (COREG) 25 mg tablet Take 1 tablet by mouth twice daily. insulin needles, DISPOSABLE, (PEN NEEDLE) 31 gauge x 5/16 ndle Use one needle per dose. 4 per day. EASY TOUCH 0.5 mL 31 gauge x 5/16 syrg USE TWICE DAILY WITH insulin albuterol HFA (VENTOLIN HFA) 90 mcg/actuation inhaler Inhale 2 Puffs as instructed every 4 hours as needed for Wheezing/Shortness of Breath (and cough). nystatin (MYCOSTATIN) powder Apply 1 application to affected area once daily. COMPOUNDED PRESCRIPTION Magnifer for insulin syringe mupirocin (BACTROBAN) 2 % ointment Apply 1 application to affected area three times daily. Location: buttocks for 7 to 10 days or till wound healed as directed Blood-Glucose Meter (FREESTYLE LITE METER) monitoring kit As directed nitroglycerin sublingual (NITROQUICK) 0.4 mg SL tablet Dissolve under the tongue. One sublingual up to every 5 minutes up to three times as needed for chest pain. Disposable Gloves (LATEX GLOVES, LARGE) misc Use as needed for home care, 1 box. DX 788.30, 250.62 Diclofenac Sodium 1 % gel Apply 2 g to affected area four times daily as needed. For left shoulder pain Diaper,Brief, Adult,Disposable (BRIEFS) misc size 2X . uses 6 daily DX: 250.62,428.0,278.01,782.3 PT has uncontrolled DM with neurologic compications causing urinary incont. Also CHF and edema and is on diuretic which contributes. aspirin 81 mg chewable tablet Take 1 tablet by mouth once daily. Nebulizer Accessories Misc Kit Nebulizer accessory kit with tubing and attachments. To be used 4 times daily as needed for wheezing/sob.493.2 Lancets (FREESTYLE LANCETS) [facility] lancets Test blood sugars 4 times daily, 250.02, insulin dep PHYSICAL EXAMINATION: VITAL SIGNS: BP 110/70 Pulse 78 LMP 07/03/2012 Chest: Clear to auscultation. Trachea is midline. Air entry is equal. Cardiac: Regular rhythm. S1 and S2 are normal. PMI is Enlarged and displaced. There is a soft murmur of tricuspid insufficiency. Carotids are brisk without bruits. JVP is less than 10 cm. Abdomen: Soft and nontender. She is obese. There are no pulsatile masses or bruits. No liver enlargement. Bowel sounds are active. Extremities: The left foot has chronic stasis with minimal edema. Pulses are diminished. Right extremity is surgically absent [id number]. Pulses are intact and symmetrical. ICD check is due. Electronically Signed: Pepe Ordonez MD July 09, 2018 1:33 PM CC: Jing Garza MD CNOV Observed: 07/09/2018 Status: COMPLETED Source: [place] 1:00 PM [facility] REPOSITORY Office Visit (CAWSTR) SHOSHANA MADDEN ([id number]) 1960 F Date Time Provider Department 07/09/18 1:00 PM PEPE ORDONEZ [facility]WSTR During your visit today, we recorded the following information about you: Pulse Blood pressure 78/minute 110/70 Pepe Ordonez MD 07/09/2018 5:49 PM Signed PERTINENT CARDIAC HISTORY ASHD - PCI LAD, RCA 2006 Atrial fib - PAF PAD - right AKA 2012 DM Obesity HTN HL CRF Cardiomyopathy - nonischemic, AV node ablation and LANDMAN-D 2012 ADHERENCE TO GUIDELINES ZACHARY-I or ARB for HF with prior LVEF<40 (NQF 0081) - met ASA or Plavix for ASHD (NQF 0067) - met Beta jeremie for ASHD with prior ND or prior LVEF<40 (NQF 0070) - met Beta jeremie for HF with prior LVEF<40 (NQF 0083) - met ZACHARY-I or ARB for ASHD with DM or prior LVEF<40 (NQF 0066) - met Statin therapy for ASHD or FHL or DM - met BMI documented and plan if >25 (NQF 0421) - lifestyle recommendation form Tobacco use screening and referral (NQF 0028) - lifestyle recommendation form Recommendation for whole food, plant based diet - lifestyle recommendation form CLINICAL IMPRESSION/PLAN: Shoshana Madden is doing well. She is well compensated. She has been advised to call about the pacemaker follow-up. She will continue her current medication. Blood pressure is well-controlled. I asked that she have basic profile checked. She has progressive renal insufficiency. I will see her in 6 months or as needed. Written and verbal health teaching given to patient, patient verbalizes understanding and agrees with treatment plan. DIAGNOSIS FOR VISIT: ASHD Cardiomyopathy HISTORY OF PRESENT ILLNESS Shoshana Madden returns for follow-up of multiple cardiac issues, as noted above. She recently underwent a hysterectomy and resection of her pannus. This was not complicated by any cardiac issues. She denies chest pain. She's had no orthopnea, edema, syncope, palpitations, TIAs, amaurosis or claudication. She is pleased with her surgical result ALLERGIES: ALLERGIES Allergen Reactions - Iodine Rash - Latex Rash - Morphine Mental Status Change - Penicillin G Rash - Codeine Vomiting - Contrast Dye GI Upset - Maxidex [Dexamethas* Unknown on 03/28/13 patient does not remember reaction nor medication CURRENT OUTPATIENT MEDICATIONS: oxyCODONE IR (ROXICODONE) 5 mg immediate release tablet Take 5 mg by mouth. COMPOUNDED PRESCRIPTION Bariatric Mattress (patient already has bed) Dx: C66.01, M54.2, R26.9, M62.81, I50.40, Z86.73 blood sugar diagnostic (BLOOD GLUCOSE TEST) test strip Test blood sugar(s) 4 times daily. Dx: Other DM Code E11.40 Insulin: Yes insulin regular hum U-500 conc (HUMULIN R U-500, CONC, KWIKPEN) 500 unit/mL (3 mL) inpn Inject 80 units 30 min before breakfast and 70 units 30 min before dinner buPROPion XL (WELLBUTRIN XL) 300 mg 24 hr tablet TAKE ONE TABLET BY MOUTH EVERY DAY warfarin (COUMADIN) 5 mg tablet 7.5mg Mon,Fri and 5mg all other days or as directed insulin regular hum U-500 conc (HUMULIN R U-500, CONC, KWIKPEN) 500 unit/mL (3 mL) inpn Inject 80 units every morning and 70 units every evening Blood Pressure Monitor kit 1 Kit as directed. Home Kit, Monitor and large BP cuff (check for proper sizing) Diagnosis: HTN: I10, CAD I25.10, CHF 150.22 digoxin (LANOXIN) 125 mcg tablet Take 1 tablet by mouth once daily. Blood Pressure Cuff - Home Use BLOOD PRESSURE CUFF FOR HOME USE. DX: HTN I10 LORazepam (ATIVAN) 0.5 mg tab Take 1 tablet by mouth once daily as needed for up to 90 days. cholecalciferol, Vitamin D3, (VITAMIN D3) 50,000 unit cap capsule Take 1 capsule by mouth once each week. esomeprazole (NEXIUM) 40 mg capsule TAKE ONE CAPSULE BY MOUTH EVERY DAY on an empty stomach Hydrochlorothiazide 12.5 mg capsule TAKE TWO CAPSULES BY MOUTH EVERY DAY magnesium oxide (MAG-OX) 400 mg tablet TAKE ONE TABLET BY MOUTH TWICE DAILY traMADol (ULTRAM) 50 mg tablet Take 1 tablet by mouth every 6 hours for 90 days. A gabapentin (NEURONTIN) 600 mg tablet Take 1 tablet by mouth three times daily. May take one additional tablet at bedtime. atorvastatin (LIPITOR) 40 mg tablet TAKE ONE TABLET BY MOUTH EVERY DAY furosemide (LASIX) 40 mg tablet Take 1 tablet by mouth once daily. For fluid retention and leg swelling. May add extra pill daily if needed for retention lisinopril (ZESTRIL, PRINIVIL) 20 mg tablet Take 1 tablet by mouth once daily. carvedilol (COREG) 25 mg tablet Take 1 tablet by mouth twice daily. insulin needles, DISPOSABLE, (PEN NEEDLE) 31 gauge x 5/16 ndle Use one needle per dose. 4 per day. EASY TOUCH 0.5 mL 31 gauge x 5/16 syrg USE TWICE DAILY WITH insulin albuterol HFA (VENTOLIN HFA) 90 mcg/actuation inhaler Inhale 2 Puffs as instructed every 4 hours as needed for Wheezing/Shortness of Breath (and cough). nystatin (MYCOSTATIN) powder Apply 1 application to affected area once daily. COMPOUNDED PRESCRIPTION Magnifer for insulin syringe mupirocin (BACTROBAN) 2 % ointment Apply 1 application to affected area three times daily. Location: buttocks for 7 to 10 days or till wound healed as directed Blood-Glucose Meter (FREESTYLE LITE METER) monitoring kit As directed nitroglycerin sublingual (NITROQUICK) 0.4 mg SL tablet Dissolve under the tongue. One sublingual up to every 5 minutes up to three times as needed for chest pain. Disposable Gloves (LATEX GLOVES, LARGE) misc Use as needed for home care, 1 box. DX 788.30, 250.62 Diclofenac Sodium 1 % gel Apply 2 g to affected area four times daily as needed. For left shoulder pain Diaper,Brief, Adult,Disposable (BRIEFS) misc size 2X . uses 6 daily DX: 250.62,428.0,278.01,782.3 PT has uncontrolled DM with neurologic compications causing urinary incont. Also CHF and edema and is on diuretic which contributes. aspirin 81 mg chewable tablet Take 1 tablet by mouth once daily. Nebulizer Accessories [facility] [place] Kit Nebulizer accessory kit with tubing and attachments. To be used 4 times daily as needed for wheezing/sob.493.2 Lancets (FREESTYLE LANCETS) [facility] [place] lancets Test blood sugars 4 times daily, 250.02, insulin dep PHYSICAL EXAMINATION: VITAL SIGNS: BP 110/70 Pulse 78 LMP 07/03/2012 Chest: Clear to auscultation. Trachea is midline. Air entry is equal. Cardiac: Regular rhythm. S1 and S2 are normal. PMI is Enlarged and displaced. There is a soft murmur of tricuspid insufficiency. Carotids are brisk without bruits. JVP is less than 10 cm. Abdomen: Soft and nontender. She is obese. There are no pulsatile masses or bruits. No liver enlargement. Bowel sounds are active. Extremities: The left foot has chronic stasis with minimal edema. Pulses are diminished. Right extremity is surgically absent [id number]. Pulses are intact and symmetrical. ICD check is due. Electronically Signed: Pepe Ordonez MD July 09, 2018 1:33 PM CC: MD Pepe Maier MD 07/09/2018 1:33 PM Signed LIFESTYLE CHANGE A healthy lifestyle is the most important component of your overall treatment plan. Please give serious thought to the following areas and commit to making senior living changes. EAT A WHOLE FOOD, PLANT BASED DIET The nutrition your body gets is more important than the medicine you take. What matters most is the overall way you eat. We encourage you to minimize the use of animal products (which include dairy and all meats except fatty fish) and use whole, unprocessed plant foods to provide your protein, vitamins and other nutrients. We have a lot of information to share with you on this topic. This is not a diet. It is a way of life that you will keep with you. EXERCISE REGULARLY It is not important to spend hours in the gym, lifting weights and perspiring heavily. A total of 2-3 hours per week of aerobic (causing you to be moderately short of breath) exercise is sufficient to improve your health. Talk to us before you begin a new exercise program, if you have heart disease or experience shortness of breath or chest pain. REDUCE STRESS Chronic emotional and physical stress leads to disease. Ways of reducing stress include meditation, visualization, prayer, yoga and other forms of relaxation therapy. Consistency is the novak. Find a technique that works for you and do it every day. CULTIVATE RELATIONSHIPS Loneliness and isolation have a major negative impact on health. Seek out others who can love, care for and nurture you. Avoid hurtful relationships. MAINTAIN IDEAL BODY WEIGHT The best way to do this is to do all the things above. Our bodies naturally find the right weight if we keep moving and feed ourselves the right food. If your BMI is greater than 25, we strongly recommend a referral to a weight management program. Please speak to us or your family physician about available programs. AVOID NICOTINE IN ALL FORMS This includes all tobacco products, whether chewed, smoked, vaped, or rubbed on the skin. Smoking cessation programs, which can make use of tobacco substitutes, medications to suppress cravings and behavior management, are available. Please contact your family physician about programs in your area. Referring Provider: PEPE ORDONEZ [[id number]] Allergies As of Date: 07/09/2018 Noted Allergy Reaction IODINE 02/23/2007 2 - Rash LATEX 11/08/2005 2 - Rash MORPHINE 03/28/2013 1 - Mental Status Change PENICILLIN G 01/23/2007 2 - Rash CODEINE 10/16/2007 11 - Vomiting CONTRAST DYE 08/09/2006 8 - GI Upset MAXIDEX (DEXAMETHASONE) 09/03/2007 16 - Unknown Comments: on 03/28/13 patient does not remember reaction nor medication Date Reviewed: 07/09/2018 Reviewed by: Alda Raya - Fully Assessed Reason for Visit: Recheck [92] Primary Visit Diagnosis:ASHD (arteriosclerotic heart disease) [I25.10] Other Visit Diagnosis:Cardiomyopathy, ischemic [I25.5] Order(s):BASIC METABOLIC PNL [SQBMP] Order #: [id number] FUTURE Prescriptions as of 07/09/2018 Sig: OXYCODONE 5 MG TABLET Take 5 mg by mouth. COMPOUNDED PRESCRIPTION Bariatric Mattress (patient a* BLOOD SUGAR DIAGNOSTIC STRIPS Test blood sugar(s) 4 times d* INSULIN REGULAR HUMAN U-500 * Inject 80 units 30 min before* Patient taking differently: Inject 80 units 30 min before* BUPROPION XL 300 MG 24 HR TAB TAKE ONE TABLET BY MOUTH EVER* WARFARIN 5 MG TABLET 7.5mg Mon,Fri and 5mg all oth* INSULIN REGULAR HUMAN U-500 * Inject 80 units every morning* BLOOD PRESSURE MONITOR KIT 1 Kit as directed. Home Kit, * DIGOXIN 125 MCG TABLET Take 1 tablet by mouth once d* COMPOUNDED PRESCRIPTION BLOOD PRESSURE CUFF FOR HOME * LORAZEPAM 0.5 MG TABLET Take 1 tablet by mouth once d* CHOLECALCIFEROL (VITAMIN D3) * Take 1 capsule by mouth once * ESOMEPRAZOLE MAGNESIUM 40 MG * TAKE ONE CAPSULE BY MOUTH MARRY* HYDROCHLOROTHIAZIDE 12.5 MG C* TAKE TWO CAPSULES BY MOUTH EV* MAGNESIUM OXIDE 400 MG (241.3* TAKE ONE TABLET BY MOUTH TWIC* TRAMADOL 50 MG TABLET Take 1 tablet by mouth every * GABAPENTIN 600 MG TABLET Take 1 tablet by mouth three * ATORVASTATIN 40 MG TABLET TAKE ONE TABLET BY MOUTH EVER* FUROSEMIDE 40 MG TABLET Take 1 tablet by mouth once d* LISINOPRIL 20 MG TABLET Take 1 tablet by mouth once d* CARVEDILOL 25 MG TABLET Take 1 tablet by mouth twice * PEN NEEDLE, DIABETIC 31 GAUGE* Use one needle per dose. 4 pe* EASY TOUCH INSULIN SYRINGE 0.* USE TWICE DAILY WITH insulin ALBUTEROL SULFATE HFA 90 MCG/* Inhale 2 Puffs as instructed * NYSTATIN 100,000 UNIT/GRAM TO* Apply 1 application to affect* COMPOUNDED PRESCRIPTION Magnifer for insulin syringe MUPIROCIN 2 % TOPICAL OINTMENT Apply 1 application to affect*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 WEAKNESS MUSCLE [M62.81] INVALID FOR* Multiple and unspecified open wound of lower li*INVALID FOR*07/24/2017 RESTLESS LEGS SYNDROME [G25.81] INVALID FOR* Vitamin D deficiency [E55.9] INVALID FOR* Neoplasm of unspecified nature of bone, soft ti*INVALID FOR*07/24/2017 Cellulitis and abscess of leg, except foot [L03*INVALID FOR*07/24/2017 Other hammer toe (acquired) [M20.40] INVALID FOR*07/24/2017 Obstructive chronic bronchitis without exacerba*INVALID FOR*03/07/2017 More... 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 Type II or unspecified type diabetes mellitus w*INVALID FOR*04/20/2016 SUMMARY [V999.95] INVALID FOR*07/24/2017 Priority: Severe More... CAD (coronary artery disease) [I25.10] INVALID FOR* Priority: B More... AF (atrial fibrillation) [I48.91] INVALID FOR*04/16/2017 Priority: B More... HTN (hypertension) [I10] INVALID FOR*07/24/2017 Priority: D More... Heart failure/ Ischemic Cardiomyopathy [I50.9] INVALID FOR* More... Hypothyroid [E03.9] INVALID FOR*03/22/2016 Priority: F More... Venous ulcer of leg (HCC) [I83.009, L97.909] INVALID FOR*07/24/2017 More... More... SUMMARY [V999.95] INVALID FOR*12/29/2013 More... Cellulitis of lower limb [L03.119] INVALID FOR*07/24/2017 Priority: E More... Acute renal insufficiency [N28.9] INVALID FOR*07/24/2017 More... Chest pain at rest [R07.9] INVALID FOR*07/24/2017 More... Decubitus skin ulcer [L89.90] INVALID FOR*07/24/2017 More... Hyponatremia [E87.1] INVALID FOR*07/24/2017 More... Diarrhea [R19.7] INVALID FOR*07/24/2017 More... Debility [R53.81] INVALID FOR* CKD (chronic kidney disease) stage 3, GFR 30-59*INVALID FOR* Microalbuminuria [R80.9] Knee pain [M25.569] INVALID FOR* Peripheral vascular disease [I73.9] INVALID FOR* Priority: E More... Depression/ ? Bipolar Disorder [F32.9] INVALID FOR* Priority: G More... More... Oliguria [R34] INVALID FOR*06/18/2013 More... Atherosclerosis of nonautologous biological byp*INVALID FOR*07/24/2017 Wound infection after surgery [T81.4XXA] INVALID FOR*07/24/2017 More... Shortness of breath [R06.02] INVALID FOR*07/24/2017 More... LBBB (left bundle branch block) [I44.7] INVALID FOR* Priority: D LV dysfunction [I51.9] INVALID FOR* Atherosclerosis of autologous vein bypass graft*INVALID FOR* Chronic anticoagulation [Z79.01] INVALID FOR* Priority: B More... Admission for therapeutic drug monitoring [Z51.*INVALID FOR*07/24/2017 Priority: B More... Heart failure, systolic, chronic [I50.22] INVALID FOR*03/15/2018 Priority: A More... Biventricular ICD (implantable cardioverter-def*INVALID FOR* H/O: CVA (cerebrovascular accident) [Z86.73] INVALID FOR* MAX (acute kidney injury) (HCC) [N17.9] INVALID FOR*07/24/2017 More... More... Heart failure, systolic, acute on chronic (HCC)*INVALID FOR*07/24/2017 Priority: B More... Discharge planning issues [Z02.9] INVALID FOR*03/05/2017 More... Presence of stent in right coronary artery [Z95*INVALID FOR* Presence of bare metal stent in LAD coronary ar*INVALID FOR* Chronic atrial fibrillation (HCC) [I48.2] INVALID FOR* Depressive disorder, not elsewhere classified [* Uncontrolled type 2 diabetes mellitus with diab*INVALID FOR* Morbid obesity due to excess calories (HCC) [E6*INVALID FOR*04/16/2017 History of right above knee amputation (HCC) [Z* More... Pleural effusion, bilateral [J90] INVALID FOR* More... Chronic renal insufficiency [N18.9] INVALID FOR* Endometrial cancer (HCC) [C54.1] INVALID FOR* More... Pulmonary HTN [I27.20] INVALID FOR* GERD (gastroesophageal reflux disease) [K21.9] INVALID FOR* Uterine cancer (HCC) [C55] INVALID FOR* More... Follow-up and Disposition History Recorded Encounter Status:Closed by SUE GARZON DPM on 06/07/18 BEE BREEDER CYTOLOGY REPORT Observed: 05/29/2018 Status: F Source: [facility] 2:13 PM [facility] REPOSITORY . Pathology Reports Accession: Collected Date/Time: Received Date/Time: Pathologist: [id number] 05/29/2018 14:13 EDT 05/29/2018 18:00 EDT MD SUE MORALES Document Control Manager Cytology Report SPECIMEN: Specimen Description: Liquid Prep Reflex ASCUS Specimen: Vaginal Screening or Diagnostic: Screening RELEVANT HISTORY: LMP: Not Given Hysterectomy: Yes SPECIMEN ADEQUACY: SATISFACTORY FOR EVALUATION TRANSFORMATION ZONE COMPONENT ABSENT DUE TO PREVIOUS HYSTERECTOMY INTERPRETATION/RESULTS: NEGATIVE FOR INTRAEPITHELIAL LESION OR MALIGNANCY SUGGESTIONS/EDUCATIONAL NOTES: THIS CASE HAS BEEN REVIEWED FOR 10% Q.C. RESCREEN COMMENT: SCANT CELLULARITY Electronically Signed by Pathology report verified by [facility] Screened by: GL MGS Electronically signed by SUE MORALES MD Sign-Out Date: 06/10/2018 15:04 Performing Lab: [facility], [address] [place] [address] Disclaimer The Pap test is a screening test for cervical cancer. As evidenced by published data, it is subject to both inherent false negative and false positive results. Your patient's results should be interpreted in context with pertinent clinical history including gynecological examination. Performed By: #### GYCR #### [place] [address] PROGRESS Observed: 05/24/2018 Status: COMPLETED Source: [facility] 1:02 PM [facility] REPOSIT[facility] HNO ID: [id number] Author: Ameena Cee Service: (none) Author Type: Registered Nurse Type: Progress Notes Filed: 05/24/2018 1:44 PM Note Text: PRIMARY CARE COORDINATION FOLLOW-UP NOTE Provider Action/FYI: Pt with perineal pressure referred to Document Control Manager Onc she has been seeing. Patient identified by name and date of . YES Spoke to Xochitl KAUR. RN Summary: Pt complaining of pressure down there in perineum. Pt is WC bound with one leg and supermorbidly obese. Had MADDI for endometrial Ca within past few months in [place] with wound dehiscence (that is why is seeing her) and was seeing Document Control Manager Onc. RN has tried to visualize area without success and after much discussion she will call Document Control Manager with information. Concerns: Unable to visualize area nor get UA for possible UTI . Therapist Rrt plan for next outreach: Will follow up with results Signature Ameena Cee RN [employer] [facility] May 24, 2018 SDTOUTREACH Observed: 05/24/2018 Status: COMPLETED Source: [place] 12:00 AM [facility] REPOSITORY Patient Outreach (INTMWS) SHOSHANA MADDEN ([id number]) 1960 F Date Time Provider Department 05/24/18 AMEENA CHIANG During your visit today, we recorded the following information about you: Ameena Quiñones RN 05/24/2018 1:44 PM Signed PRIMARY CARE COORDINATION FOLLOW-UP NOTE Provider Action/FYI: Pt with perineal pressure referred to Document Control Manager Onc she has been seeing. Patient identified by name and date of . YES Spoke to Xochitl KAUR. RN Summary: Pt complaining of pressure down there in perineum. Pt is WC bound with one leg and supermorbidly obese. Had MADDI for endometrial Ca within past few months in [place] with wound dehiscence (that is why HH is seeing her) and was seeing Document Control Manager Onc. RN has tried to visualize area without success and after much discussion she will call Document Control Manager with information. Concerns: Unable to visualize area nor get UA for possible UTI . Therapist Rrt plan for next outreach: Will follow up with results Signature Ameena Cee RN [employer] [facility] May 24, 2018 Allergies As of Date: 05/24/2018 Noted Allergy Reaction IODINE 02/23/2007 2 - Rash LATEX 11/08/2005 2 - Rash MORPHINE 03/28/2013 1 - Mental Status Change PENICILLIN G 01/23/2007 2 - Rash CODEINE 10/16/2007 11 - Vomiting CONTRAST DYE 08/09/2006 8 - GI Upset MAXIDEX (DEXAMETHASONE) 09/03/2007 16 - Unknown Comments: on 03/28/13 patient does not remember reaction nor medication Date Reviewed: 05/23/2018 Reviewed by: Kaitlynn Beaver Ma - Fully Assessed Prescriptions as of 05/24/2018 Sig: DOXYCYCLINE MONOHYDRATE 100 M* Take 1 capsule by mouth twice* BLOOD SUGAR DIAGNOSTIC STRIPS Test blood sugar(s) 4 times d* INSULIN REGULAR HUMAN U-500 * Inject 80 units 30 min before* Patient taking differently: Inject 80 units 30 min before* BUPROPION XL 300 MG 24 HR TAB TAKE ONE TABLET BY MOUTH EVER* WARFARIN 5 MG TABLET 7.5mg Mon,Fri and 5mg all oth* INSULIN REGULAR HUMAN U-500 * Inject 80 units every morning* BLOOD PRESSURE MONITOR KIT 1 Kit as directed. Home Kit, * DIGOXIN 125 MCG TABLET Take 1 tablet by mouth once d* COMPOUNDED PRESCRIPTION BLOOD PRESSURE CUFF FOR HOME * LORAZEPAM 0.5 MG TABLET Take 1 tablet by mouth once d* CHOLECALCIFEROL (VITAMIN D3) * Take 1 capsule by mouth once * ESOMEPRAZOLE MAGNESIUM 40 MG * TAKE ONE CAPSULE BY MOUTH MARRY* HYDROCHLOROTHIAZIDE 12.5 MG C* TAKE TWO CAPSULES BY MOUTH EV* MAGNESIUM OXIDE 400 MG (241.3* TAKE ONE TABLET BY MOUTH TWIC* TRAMADOL 50 MG TABLET Take 1 tablet by mouth every * GABAPENTIN 600 MG TABLET Take 1 tablet by mouth three * ATORVASTATIN 40 MG TABLET TAKE ONE TABLET BY MOUTH EVER* FUROSEMIDE 40 MG TABLET Take 1 tablet by mouth once d* LISINOPRIL 20 MG TABLET Take 1 tablet by mouth once d* CARVEDILOL 25 MG TABLET Take 1 tablet by mouth twice * PEN NEEDLE, DIABETIC 31 GAUGE* Use one needle per dose. 4 pe* EASY TOUCH INSULIN SYRINGE 0.* USE TWICE DAILY WITH insulin ALBUTEROL SULFATE HFA 90 MCG/* Inhale 2 Puffs as instructed * NYSTATIN 100,000 UNIT/GRAM TO* Apply 1 application to affect* COMPOUNDED PRESCRIPTION Magnifer for insulin syringe MUPIROCIN 2 % TOPICAL OINTMENT Apply 1 application to affect* BLOOD-GLUCOSE METER KIT As directed NITROGLYCERIN 0.4 MG SUBLINGU* Dissolve under the tongue. O* DISPOSABLE GLOVES Use as needed for home care, * DICLOFENAC 1 % TOPICAL GEL Apply 2 g to affected area fo* DIAPER,BRIEF,ADULT,DISPOSABLE size 2X . uses 6 daily DX: * ASPIRIN 81 MG CHEWABLE TABLET Take 1 tablet by mouth once d* * NEBULIZER ACCESSORIES KIT Nebulizer accessory kit with * * LANCETS Test blood sugars 4 times earline* Problem List As Of Date 05/24/2018 Noted Resolved Obesity, Class III, BMI 40-49.9 (morbid obesity*INVALID FOR* Priority: H Acute myocardial infarction, unspecified site, *INVALID FOR*07/24/2017 Hyperlipemia, mixed [E78.2] INVALID FOR* More... Ulcer of heel and midfoot (HCC) [L97.409] INVALID FOR*07/24/2017 CARBUNCLE ARM (ABOVE WRIST) [L02.429] INVALID FOR*07/24/2017 CARBUNCLE FLANK [L02.229] INVALID FOR*07/24/2017 Blood in stool [K92.1] INVALID FOR*07/24/2017 Atrial fibrillation [I48.91] INVALID FOR*10/18/2015 Asthma-chronic obstructive pulmonary disease ov* More... Contusion of foot [S90.30XA] INVALID FOR*07/24/2017 Hereditary and idiopathic peripheral neuropathy*INVALID FOR* Cannabis abuse, episodic [F12.10] INVALID FOR*07/24/2017 Eating disorder, unspecified [F50.9] INVALID FOR*07/24/2017 CERVICALGIA [M54.2] Carbuncle and furuncle of buttock [L02.33] INVALID FOR*07/24/2017 Essential hypertension [I10] INVALID FOR* More... Dermatophytosis of nail [B35.1] INVALID FOR*07/24/2017 Unspecified local infection of skin and subcuta*INVALID FOR*07/24/2017 More... Other malaise and fatigue [R53.81, R53.83] INVALID FOR*07/24/2017 ABNORMALITY OF GAIT [R26.9] INVALID FOR* WEAKNESS MUSCLE [M62.81] INVALID FOR* Multiple and unspecified open wound of lower li*INVALID FOR*07/24/2017 RESTLESS LEGS SYNDROME [G25.81] INVALID FOR* Vitamin D deficiency [E55.9] INVALID FOR* Neoplasm of unspecified nature of bone, soft ti*INVALID FOR*07/24/2017 Cellulitis and abscess of leg, except foot [L03*INVALID FOR*07/24/2017 Other hammer toe (acquired) [M20.40] INVALID FOR*07/24/2017 Obstructive chronic bronchitis without exacerba*INVALID FOR*03/07/2017 More... 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 Type II or unspecified type diabetes mellitus w*INVALID FOR*04/20/2016 SUMMARY [V999.95] INVALID FOR*07/24/2017 Priority: Severe More... CAD (coronary artery disease) [I25.10] INVALID FOR* Priority: B More... AF (atrial fibrillation) [I48.91] INVALID FOR*04/16/2017 Priority: B More... HTN (hypertension) [I10] INVALID FOR*07/24/2017 Priority: D More... Heart failure/ Ischemic Cardiomyopathy [I50.9] INVALID FOR* More... Hypothyroid [E03.9] INVALID FOR*03/22/2016 Priority: F More... Venous ulcer of leg (HCC) [I83.009, L97.909] INVALID FOR*07/24/2017 More... More... SUMMARY [V999.95] INVALID FOR*12/29/2013 More... Cellulitis of lower limb [L03.119] INVALID FOR*07/24/2017 Priority: E More... Acute renal insufficiency [N28.9] INVALID FOR*07/24/2017 More... Chest pain at rest [R07.9] INVALID FOR*07/24/2017 More... Decubitus skin ulcer [L89.90] INVALID FOR*07/24/2017 More... Hyponatremia [E87.1] INVALID FOR*07/24/2017 More... Diarrhea [R19.7] INVALID FOR*07/24/2017 More... Debility [R53.81] INVALID FOR* CKD (chronic kidney disease) stage 3, GFR 30-59*INVALID FOR* Microalbuminuria [R80.9] Knee pain [M25.569] INVALID FOR* Peripheral vascular disease [I73.9] INVALID FOR* Priority: E More... Depression/ ? Bipolar Disorder [F32.9] INVALID FOR* Priority: G More... More... Oliguria [R34] INVALID FOR*06/18/2013 More... Atherosclerosis of nonautologous biological byp*INVALID FOR*07/24/2017 Wound infection after surgery [T81.4XXA] INVALID FOR*07/24/2017 More... Shortness of breath [R06.02] INVALID FOR*07/24/2017 More... LBBB (left bundle branch block) [I44.7] INVALID FOR* Priority: D LV dysfunction [I51.9] INVALID FOR* Atherosclerosis of autologous vein bypass graft*INVALID FOR* Chronic anticoagulation [Z79.01] INVALID FOR* Priority: B More... Admission for therapeutic drug monitoring [Z51.*INVALID FOR*07/24/2017 Priority: B More... Heart failure, systolic, chronic [I50.22] INVALID FOR*03/15/2018 Priority: A More... Biventricular ICD (implantable cardioverter-def*INVALID FOR* H/O: CVA (cerebrovascular accident) [Z86.73] INVALID FOR* MAX (acute kidney injury) (HCC) [N17.9] INVALID FOR*07/24/2017 More... More... Heart failure, systolic, acute on chronic (HCC)*INVALID FOR*07/24/2017 Priority: B More... Discharge planning issues [Z02.9] INVALID FOR*03/05/2017 More... Presence of stent in right coronary artery [Z95*INVALID FOR* Presence of bare metal stent in LAD coronary ar*INVALID FOR* Chronic atrial fibrillation (HCC) [I48.2] INVALID FOR* Depressive disorder, not elsewhere classified [* Uncontrolled type 2 diabetes mellitus with diab*INVALID FOR* Morbid obesity due to excess calories (HCC) [E6*INVALID FOR*04/16/2017 History of right above knee amputation (HCC) [Z* More... Pleural effusion, bilateral [J90] INVALID FOR* More... Chronic renal insufficiency [N18.9] INVALID FOR* Endometrial cancer (HCC) [C54.1] INVALID FOR* More... Pulmonary HTN [I27.20] INVALID FOR* GERD (gastroesophageal reflux disease) [K21.9] INVALID FOR* Uterine cancer (HCC) [C55] INVALID FOR* More... Encounter Status:Closed by AMEENA CEE on 05/24/18 PROGRESS Observed: 05/23/2018 Status: COMPLETED Source: [place] 2:31 PM [facility] REPOSITORY O ID: [id number] Author: Juju (Rt) Girish Verde Service: (none) Author Type: Garment Fitter Type: Progress Notes Filed: 05/23/2018 2:31 PM Note Text: Radiology Service Progress Note PATIENT NAME: Shoshana Madden DATE OF SERVICE: May 23, 2018 TIME: 2:31 PM PATIENT IDENTITY VERIFICATION COMPLETED USING TWO (2) METHODS: Patient confirmed name verbally and Date of . PATIENT GENDER DATA: Female. status: : No status: NO. PATIENT RELEVANT IMPLANT DATA REVIEWED: Not Applicable RADIOLOGY DEPARTMENT: General X-ray: Exam(s) Completed: Lower Extremity X-Ray(s): Foot, Left: PERIPHERAL IV DATA: Not applicable SIGNED BY: RT Rosa May 23, 2018 2:31 PM XR FOOT 3V AP/LAT/OBL Observed: 05/23/2018 Status: F Source: [facility] 2:31 PM [facility] REPOSITORY * * *Final Report* * * DATE OF EXAM: May 23 2018 2:31PM [id number] - XR FOOT 3V AP/LAT/OBL LT / PROCEDURE REASON: multiple diagnoses * * * * Physician Interpretation * * * * HISTORY: Foot ulcer left heel and midfoot COMPARISON: Comparison is made to prior foot study dated 31 May 2017 RESULT: AP, oblique and crosstable lateral radiographs of the left foot demonstrate mild volar forefoot soft tissue swelling. There is no gas within the soft tissues or evidence of a bony destructive process. Diffuse vascular calcifications are present. There are calcaneal spurs at the Livingston's tendon and plantar fascial insertions. IMPRESSION: No evidence of gas within the soft tissues or bony destructive process to confirm osteomyelitis. Supervisor Machine Setter: PSCB Transcribe Date/Time: May 23 2018 3:59P Dictated by : ANGELIQUE WILKERSON MD This examination was interpreted and the report reviewed and electronically signed by: ANGELIQUE WILKERSON MD on May 23 2018 4:01PM EST [id number] PROGRESS Observed: 05/23/2018 Status: COMPLETED Source: [place] 1:27 PM [facility] REPOSITORY HNO ID: [id number] Author: Sue Garzon Service: (none) Author Type: Physician Type: Progress Notes Filed: 05/24/2018 7:21 AM Note Text: Sue Garzon DPM Department of Podiatry [address] [facility] [address] Dept: [phone] Dept Diabetic Nail Care SUBJECTIVE: Follow up office visit: This 57 year old female presents to clinic c/o painful toenails. Patient states that the nails are especially painful with shoe gear and pressure. Patient admits to being diabetic and states that their blood sugar was 231 mg/dL this AM. Patient denies claudication type symptoms when walking. Patient now complains of callus to left 2nd metatarsal. She states it just developed about 2 weeks ago and there is pian during transfer. No other pedal complaints at this time. No change in medications or medical history since last visit. OBJECTIVE: Patient presents to clinic ambulating in Tennis shoe. Vasc: DP and PT pulses are faint to left foot. CFT is less than 5 seconds left. Skin temperature is warm to warm proximal to distal left. There is edema or varicosities noted. Hair growth present. There is lower leg amputation right lower extremity. Neuro: Protective sensation is absent to the foot and toes when tested with the 5.07 SWM left Derm: Inspection and palpation performed. Nails 1-5 left are discolored-yellow, thick, crumbly, dystrophic and with subungal debris. Skin is dry and scaly to left foot. Hyperkeratosis to left 2nd metatarsal with blood discharge. Upon debridement, there is 3 mm x 3 mm x 1 mm ulceration to left 2nd metatarsal. No exposed tendon, capsule or bone. ASSESSMENT: (E11.621, L97.421) Diabetic ulcer of left midfoot associated with type 2 diabetes mellitus, limited to breakdown of skin ([facility]) (primary encounter diagnosis) (B35.1) Onychomycosis (L85.3) Xerosis cutis PLAN: Patient was seen and evaluated. Nails 1-5 bilateral were debrided in length and thickness. Patient was instructed on the continued importance of diabetic foot care along with proper diet and keeping their blood sugar under control to prevent complications. Patient has dryness of left foot. Recommend lotion to her feet daily She has new ulceration of left foot. There is very small amount of blood drainage. Sterile culture was performed. Patient placed on doxycycline. Recommend neosporin and band aid daily. Sharp debridement of ulceration with 15 blade and tissue nippers was performed of all nonviable tissue. Discussed offloading of ulceration. Discussed peg assisted surgical shoe for offloading. She is going to evaluate as she has difficult time with surgical shoes given her lower leg amputation on right lower extremity. If she declines surgical shoe, she needs to stay off the left foot. She understands this could be difficult to do given lower leg amputation on right lower leg. Will order xrays of left foot. GLENN Rothman Observed: 05/23/2018 Status: COMPLETED Source: [place] 12:50 PM [facility] REPOSITORY Office Visit (PODIWS) SHOSHANA MADDEN ([id number]) 1960 F Date Time Provider Department 05/23/18 12:50 PM SUE GARZON During your visit today, we recorded the following information about you: Sue Garzon DPM 05/24/2018 7:21 AM Signed Sue Garzon DPM Department of Podiatry [address] [facility] [address] Dept: [phone] Dept Diabetic Nail Care SUBJECTIVE: Follow up office visit: This 57 year old female presents to clinic c/o painful toenails. Patient states that the nails are especially painful with shoe gear and pressure. Patient admits to being diabetic and states that their blood sugar was 231 mg/dL this AM. Patient denies claudication type symptoms when walking. Patient now complains of callus to left 2nd metatarsal. She states it just developed about 2 weeks ago and there is pian during transfer. No other pedal complaints at this time. No change in medications or medical history since last visit. OBJECTIVE: Patient presents to clinic ambulating in Tennis shoe. Vasc: DP and PT pulses are faint to left foot. CFT is less than 5 seconds left. Skin temperature is warm to warm proximal to distal left. There is edema or varicosities noted. Hair growth present. There is lower leg amputation right lower extremity. Neuro: Protective sensation is absent to the foot and toes when tested with the 5.07 SWM left Derm: Inspection and palpation performed. Nails 1-5 left are discolored-yellow, thick, crumbly, dystrophic and with subungal debris. Skin is dry and scaly to left foot. Hyperkeratosis to left 2nd metatarsal with blood discharge. Upon debridement, there is 3 mm x 3 mm x 1 mm ulceration to left 2nd metatarsal. No exposed tendon, capsule or bone. 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 Nails 1-5 bilateral were debrided in length and thickness. Patient was instructed on the continued importance of diabetic foot care along with proper diet and keeping their blood sugar under control to prevent complications. Patient has dryness of left foot. Recommend lotion to her feet daily She has new ulceration of left foot. There is very small amount of blood drainage. Sterile culture was performed. Patient placed on doxycycline. Recommend neosporin and band aid daily. Sharp debridement of ulceration with 15 blade and tissue nippers was performed of all nonviable tissue. Discussed offloading of ulceration. Discussed peg assisted surgical shoe for offloading. She is going to evaluate as she has difficult time with surgical shoes given her lower leg amputation on right lower extremity. If she declines surgical shoe, she needs to stay off the left foot. She understands this could be difficult to do given lower leg amputation on right lower leg. Will order xrays of left foot. GLENN Rothman Ma 05/23/2018 1:50 PM Addendum Cleanse wound with normal saline. Apply hydrogel to ulceration, 4x4, and secure with phoenix three times weekly. Sue Garzon DPM NPI: [id number] Referring Provider: SUE GARZON [[id number]] Allergies As of Date: 05/23/2018 Noted Allergy Reaction IODINE 02/23/2007 2 - Rash LATEX 11/08/2005 2 - Rash MORPHINE 03/28/2013 1 - Mental Status Change PENICILLIN G 01/23/2007 2 - Rash CODEINE 10/16/2007 11 - Vomiting CONTRAST DYE 08/09/2006 8 - GI Upset MAXIDEX (DEXAMETHASONE) 09/03/2007 16 - Unknown Comments: on 03/28/13 patient does not remember reaction nor medication Date Reviewed: 05/23/2018 Reviewed by: Kaitlynn Beaver Ma - Fully Assessed Reason for Visit: Established Patient [175] Cmt: Diabetic nail care and check callous on left foot Reason For Visit History Recorded Primary Visit Diagnosis: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 #:[id number] doxycycline monohydrate (MONODOX) 100 mg capsuleTake 1 capsule by mouth twice daily for 7 days.Disp: 14 capsuleRfl: 0 Prescriptions as of 05/23/2018 Sig: BLOOD SUGAR DIAGNOSTIC STRIPS Test blood sugar(s) 4 times d* INSULIN REGULAR HUMAN U-500 * Inject 80 units 30 min before* Patient taking differently: Inject 80 units 30 min before* BUPROPION XL 300 MG 24 HR TAB TAKE ONE TABLET BY MOUTH EVER* WARFARIN 5 MG TABLET 7.5mg Mon,Fri and 5mg all oth* INSULIN REGULAR HUMAN U-500 * Inject 80 units every morning* BLOOD PRESSURE MONITOR KIT 1 Kit as directed. Home Kit, * DIGOXIN 125 MCG TABLET Take 1 tablet by mouth once d* COMPOUNDED PRESCRIPTION BLOOD PRESSURE CUFF FOR HOME * LORAZEPAM 0.5 MG TABLET Take 1 tablet by mouth once d* CHOLECALCIFEROL (VITAMIN D3) * Take 1 capsule by mouth once * ESOMEPRAZOLE MAGNESIUM 40 MG * TAKE ONE CAPSULE BY MOUTH MARRY* HYDROCHLOROTHIAZIDE 12.5 MG C* TAKE TWO CAPSULES BY MOUTH EV* MAGNESIUM OXIDE 400 MG (241.3* TAKE ONE TABLET BY MOUTH TWIC* GABAPENTIN 600 MG TABLET Take 1 tablet by mouth three * ATORVASTATIN 40 MG TABLET TAKE ONE TABLET BY MOUTH EVER* FUROSEMIDE 40 MG TABLET Take 1 tablet by mouth once d* LISINOPRIL 20 MG TABLET Take 1 tablet by mouth once d* CARVEDILOL 25 MG TABLET Take 1 tablet by mouth twice * PEN NEEDLE, DIABETIC 31 GAUGE* Use one needle per dose. 4 pe* EASY TOUCH INSULIN SYRINGE 0.* USE TWICE DAILY WITH insulin ALBUTEROL SULFATE HFA 90 MCG/* Inhale 2 Puffs as instructed * NYSTATIN 100,000 UNIT/GRAM TO* Apply 1 application to affect* COMPOUNDED PRESCRIPTION Magnifer for insulin syringe MUPIROCIN 2 % TOPICAL OINTMENT Apply 1 application to affect* BLOOD-GLUCOSE METER KIT As directed NITROGLYCERIN 0.4 MG SUBLINGU* Dissolve under the tongue. O* DISPOSABLE GLOVES Use as needed for home care, * DICLOFENAC 1 % TOPICAL GEL Apply 2 g to affected area fo* DIAPER,BRIEF,ADULT,DISPOSABLE size 2X . uses 6 daily DX: * ASPIRIN 81 MG CHEWABLE TABLET Take 1 tablet by mouth once d* * NEBULIZER ACCESSORIES KIT Nebulizer accessory kit with * * LANCETS Test blood sugars 4 times earline* DOXYCYCLINE MONOHYDRATE 100 M* Take 1 capsule by mouth twice* TRAMADOL 50 MG TABLET Take 1 tablet by mouth every * Problem List As Of Date 05/23/2018 Noted Resolved Obesity, Class III, BMI 40-49.9 (morbid obesity*INVALID FOR* Priority: H Acute myocardial infarction, unspecified site, *INVALID FOR*07/24/2017 Hyperlipemia, mixed [E78.2] INVALID FOR* More... Ulcer of heel and midfoot (HCC) [L97.409] INVALID FOR*07/24/2017 CARBUNCLE ARM (ABOVE WRIST) [L02.429] INVALID FOR*07/24/2017 CARBUNCLE FLANK [L02.229] INVALID FOR*07/24/2017 Blood in stool [K92.1] INVALID FOR*07/24/2017 Atrial fibrillation [I48.91] INVALID FOR*10/18/2015 Asthma-chronic obstructive pulmonary disease ov* More... Contusion of foot [S90.30XA] INVALID FOR*07/24/2017 Hereditary and idiopathic peripheral neuropathy*INVALID FOR* Cannabis abuse, episodic [F12.10] INVALID FOR*07/24/2017 Eating disorder, unspecified [F50.9] INVALID FOR*07/24/2017 CERVICALGIA [M54.2] Carbuncle and furuncle of buttock [L02.33] INVALID FOR*07/24/2017 Essential hypertension [I10] INVALID FOR* More... Dermatophytosis of nail [B35.1] INVALID FOR*07/24/2017 Unspecified local infection of skin and subcuta*INVALID FOR*07/24/2017 More... Other malaise and fatigue [R53.81, R53.83] INVALID FOR*07/24/2017 ABNORMALITY OF GAIT [R26.9] INVALID FOR* WEAKNESS MUSCLE [M62.81] INVALID FOR* Multiple and unspecified open wound of lower li*INVALID FOR*07/24/2017 RESTLESS LEGS SYNDROME [G25.81] INVALID FOR* Vitamin D deficiency [E55.9] INVALID FOR* Neoplasm of unspecified nature of bone, soft ti*INVALID FOR*07/24/2017 Cellulitis and abscess of leg, except foot [L03*INVALID FOR*07/24/2017 Other hammer toe (acquired) [M20.40] INVALID FOR*07/24/2017 Obstructive chronic bronchitis without exacerba*INVALID FOR*03/07/2017 More... 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 Type II or unspecified type diabetes mellitus w*INVALID FOR*04/20/2016 SUMMARY [V999.95] INVALID FOR*07/24/2017 Priority: Severe More... CAD (coronary artery disease) [I25.10] INVALID FOR* Priority: B More... AF (atrial fibrillation) [I48.91] INVALID FOR*04/16/2017 Priority: B More... HTN (hypertension) [I10] INVALID FOR*07/24/2017 Priority: D More... Heart failure/ Ischemic Cardiomyopathy [I50.9] INVALID FOR* More... Hypothyroid [E03.9] INVALID FOR*03/22/2016 Priority: F More... Venous ulcer of leg (HCC) [I83.009, L97.909] INVALID FOR*07/24/2017 More... More... SUMMARY [V999.95] INVALID FOR*12/29/2013 More... Cellulitis of lower limb [L03.119] INVALID FOR*07/24/2017 Priority: E More... Acute renal insufficiency [N28.9] INVALID FOR*07/24/2017 More... Chest pain at rest [R07.9] INVALID FOR*07/24/2017 More... Decubitus skin ulcer [L89.90] INVALID FOR*07/24/2017 More... Hyponatremia [E87.1] INVALID FOR*07/24/2017 More... Diarrhea [R19.7] INVALID FOR*07/24/2017 More... Debility [R53.81] INVALID FOR* CKD (chronic kidney disease) stage 3, GFR 30-59*INVALID FOR* Microalbuminuria [R80.9] Knee pain [M25.569] INVALID FOR* Peripheral vascular disease [I73.9] INVALID FOR* Priority: E More... Depression/ ? Bipolar Disorder [F32.9] INVALID FOR* Priority: G More... More... Oliguria [R34] INVALID FOR*06/18/2013 More... Atherosclerosis of nonautologous biological byp*INVALID FOR*07/24/2017 Wound infection after surgery [T81.4XXA] INVALID FOR*07/24/2017 More... Shortness of breath [R06.02] INVALID FOR*07/24/2017 More... LBBB (left bundle branch block) [I44.7] INVALID FOR* Priority: D LV dysfunction [I51.9] INVALID FOR* Atherosclerosis of autologous vein bypass graft*INVALID FOR* Chronic anticoagulation [Z79.01] INVALID FOR* Priority: B More... Admission for therapeutic drug monitoring [Z51.*INVALID FOR*07/24/2017 Priority: B More... Heart failure, systolic, chronic [I50.22] INVALID FOR*03/15/2018 Priority: A More... Biventricular ICD (implantable cardioverter-def*INVALID FOR* H/O: CVA (cerebrovascular accident) [Z86.73] INVALID FOR* MAX (acute kidney injury) (HCC) [N17.9] INVALID FOR*07/24/2017 More... More... Heart failure, systolic, acute on chronic (HCC)*INVALID FOR*07/24/2017 Priority: B More... Discharge planning issues [Z02.9] INVALID FOR*03/05/2017 More... Presence of stent in right coronary artery [Z95*INVALID FOR* Presence of bare metal stent in LAD coronary ar*INVALID FOR* Chronic atrial fibrillation (HCC) [I48.2] INVALID FOR* Depressive disorder, not elsewhere classified [* Uncontrolled type 2 diabetes mellitus with diab*INVALID FOR* Morbid obesity due to excess calories (HCC) [E6*INVALID FOR*04/16/2017 History of right above knee amputation (HCC) [Z* More... Pleural effusion, bilateral [J90] INVALID FOR* More... Chronic renal insufficiency [N18.9] INVALID FOR* Endometrial cancer (HCC) [C54.1] INVALID FOR* More... Pulmonary HTN [I27.20] INVALID FOR* GERD (gastroesophageal reflux disease) [K21.9] INVALID FOR* Uterine cancer (HCC) [C55] INVALID FOR* More... Other instructions from your clinician: Cleanse wound with normal saline. Apply hydrogel to ulceration, 4x4, and secure with phoenix three times weekly. Sue Garzon DPM NPI: [id number] Prescriptions ordered this encounter Disp Refills Start End DOXYCYCLINE MONOHYDRATE 100 MG CAPSU* 14 c* 0 05/23/2018 2018 Route: ORAL Sig: Take 1 capsule by mouth twice daily for 7 days. Follow-up and Disposition History Recorded Encounter Status:Closed by SUE GARZON DPM on 05/24/18 WOUND Observed: 05/23/2018 Status: F Source: [place] CULTURE/STAIN 2:02 AM [facility] REPOSITORY Sp. Request/Comment: - Swab Smear Result - No organisms seen No Polymorphonuclear Leukocytes Culture Result - Few Staphylococcus aureus --> ABNORMAL ALERT ORGANISM: Staphylococcus aureus METHOD: Minimum inhibitory concentration(Vitek) Antibiotic Interp ANDREW Status Erythromycin RESISTANT >=8 F Clindamycin RESISTANT >=4 F Tetracycline RESISTANT >=16 F Vancomycin SUSCEPTIBLE <=0.5 F Oxacillin SUSCEPTIBLE 0.5 F Oxacillin susceptible staphylococci are susceptible to other penicillinase stable penicillins, beta lactam/beta lactamase inhibitor combinations, anti staphyloccal cephems, and carbapenems. Trimeth sulfameth SUSCEPTIBLE <=10 F Gentamicin SUSCEPTIBLE <=0.5 F Rifampin SUSCEPTIBLE <=0.5 F Rifampin should not be used alone for antimicrobial therapy. Levofloxacin RESISTANT >=8 F Doxycycline SUSCEPTIBLE 2 F Performed By: #### WCUL #### [facility] [employer] [address] [place], [place] [address] CBC-COMPLETE BLOOD CNT Collected: 04/08/2018 Status: F Source: DI NO DIFF 10:45 AM [facility] REPOSITORY TYPE CODE TESTS RESULT OUT OF RANGE REFERENCE UNITS LAB L100.1000 4.4-11.0 K/mm3 Normal WBC 10.0 LAB L100.1200 4.2-5.4 M/mm3 Low RBC 3.01 LAB L100.1300 12.0-15.0 g/dl Low HGB 9.3 LAB L100.1400 37-47 % Low HCT 29.6 LAB L100.1500 81-99 fL Normal MCV 98.3 LAB L100.1600 27.0-32.0 pg Normal MCH 30.9 LAB L100.1700 32-36 g/gl Low MCHC 31.4 LAB L100.1810 11.6-14.6 % Normal RDW CV 14.4 LAB L100.1820 35.1-43.9 fl High RDW SD 49.7 LAB L100.1900 150-450 K/mm3 Normal PLT 216 LAB L100.2000 6.2-12.0 fl Normal MPV 11.3 Performed By: #### L100.0500 #### [facility] [address] [place], [place], [address] COMPREHENSIVE METABOLIC Collected: 04/08/2018 Status: F Source: [facility] 10:45 AM [facility] REPOSITORY TYPE CODE TESTS RESULT OUT OF RANGE REFERENCE UNITS LAB L501.0100 74-106 mg/dL Normal GLU 79 Result Comment: Please note revised GLUCOSE reference range effective 2017. LAB L501.1000 7-18 mg/dL High BUN 35 LAB L501.1100 0.55-1.02 mg/dL High CREAT,SERUM 1.97 Result Comment: The validity of the calculated GFR AND GFRAA in patients over 70 years has not been determined. Clinical correlation is essential. LAB L501.1110 >60 mL/min Low EST GFR 28 Result Comment: Non- GFR Calc LAB L501.1115 >60 mL/min Low EST GFR - AA 34 Result Comment: GFR Calc LAB L501.1300 10-20 RATIO Normal BUN/CRE 17.8 LAB L501.1500 6.4-8.2 g/dL T Normal PROT 6.9 LAB L501.1800 3.2-5.0 g/dL Low ALB 2.4 LAB L501.1950 2.2-4.2 g/dL High GLOB 4.5 LAB L501.2000 0.9-2.4 RATIO Low A/G 0.5 LAB L501.2200 8.5-10.1 mg/dL CA Normal 9.6 LAB L501.4100 15-37 U/L Normal AST 20 LAB L501.4305 45-117 U/L Normal ALK P 95 LAB L501.4405 13-56 U/L Low ALT 12 LAB L501.4600 0.20-1.00 mg/dL T Normal BILI 0.40 LAB L501.5300 136-145 mmol/L NA Normal 142 LAB L501.5600 3.5-5.1 mmol/L K Normal 4.9 LAB L501.5900 98-107 mmol/L CL Normal 107 LAB L501.6100 21.0-32.0 mmol/L Normal CO2 26.0 LAB L501.6200 5-15 Normal GAP 9 Performed By: #### L500.4050 #### [facility] [address] [place], [address] PROGRESS Observed: 04/04/2018 Status: COMPLETED Source: [place] 3:50 PM [facility] REPOSITORY HNO ID: [id number] Author: Ameena Quiñones [facility] Service: (none) Author Type: Registered Nurse Type: Progress Notes Filed: 04/16/2018 11:42 AM Note Text: TRANSITION CARE MANAGEMENT (TCM) INITIAL CONTACT Provider Action/FYI: Pt with PICC and Wound vac for abd wound. [facility] seeing pt for IV and wound care. Initial contact with patient post discharge, spoke to Shoshana. Patient identified by name and . SUMMARY: -Pt discharged from [facility] on 04/02/18. Admitted 03/29 from MD office. -Follow up appointment on 04/16/18. -Medication review done with pt. -Admitted for: MADDI/BSO originally and then infection to incision site. CONCERNS: Pt feels she is doing really well all things considered. NEW MEDICATIONS: IV ATB Doxycycline MEDS HELD/DISCONTINUED: None BRIEF HOSPITAL COURSE: 57 yo F diagnosed with endometrial cancer who underwent a Expl lap, MADDI BSO, panniculectomy at [facility] on 03/04/18. She was seen in Dr. Yamini Jackson's office for a follow up on 03/20 and was doing well. She returned to the office on 03/29 with spontaneous opening of wound with drainage and was admitted again to [facility] for ATB treatment of wound. She had a wound VAC applied for home use and it will be changed 3 times weekly. SHEILA Observed: 04/04/2018 Status: COMPLETED Source: [place] 12:00 AM [facility] REPOSITORY Patient Outreach (INTMWS) SHOSHANA MADDEN ([id number]) 1960 F Date Time Provider Department 04/04/18 AMEENA CHIANG During your visit today, we recorded the following information about you: Ameena Quiñones RN 04/16/2018 11:42 AM Signed TRANSITION CARE MANAGEMENT (TCM) INITIAL CONTACT Provider Action/FYI: Pt with PICC and Wound vac for abd wound. [facility] seeing pt for IV and wound care. Initial contact with patient post discharge, spoke to Shoshana. Patient identified by name and . SUMMARY: -Pt discharged from [facility] on 04/02/18. Admitted 03/29 from MD office. -Follow up appointment on 04/16/18. -Medication review done with pt. -Admitted for: MADDI/BSO originally and then infection to incision site. CONCERNS: Pt feels she is doing really well all things considered. NEW MEDICATIONS: IV ATB Doxycycline MEDS HELD/DISCONTINUED: None BRIEF HOSPITAL COURSE: 57 yo F diagnosed with endometrial cancer who underwent a Expl lap, MADDI BSO, panniculectomy at [facility] on 03/04/18. She was seen in Dr. Yamini Jackson's office for a follow up on 03/20 and was doing well. She returned to the office on 03/29 with spontaneous opening of wound with drainage and was admitted again to [facility] for ATB treatment of wound. She had a wound VAC applied for home use and it will be changed 3 times weekly. Allergies As of Date: 04/04/2018 Noted Allergy Reaction IODINE 02/23/2007 2 - Rash LATEX 11/08/2005 2 - Rash MORPHINE 03/28/2013 1 - Mental Status Change PENICILLIN G 01/23/2007 2 - Rash CODEINE 10/16/2007 11 - Vomiting CONTRAST DYE 08/09/2006 8 - GI Upset MAXIDEX (DEXAMETHASONE) 09/03/2007 16 - Unknown Comments: on 03/28/13 patient does not remember reaction nor medication Date Reviewed: 03/15/2018 Reviewed by: Kimmie Bone [employer] Clerk - Fully Assessed Reason for Visit: [facility] Follow Up [9584] Cmt: D/C 04/02/18 Prescriptions as of 04/04/2018 Sig: INSULIN REGULAR HUMAN U-500 * Inject 80 units 30 min before* BUPROPION XL 300 MG 24 HR TAB TAKE ONE TABLET BY MOUTH EVER* WARFARIN 5 MG TABLET 7.5mg Mon,Fri and 5mg all oth* INSULIN REGULAR HUMAN U-500 * Inject 80 units every morning* BLOOD PRESSURE MONITOR KIT 1 Kit as directed. Home Kit, * DIGOXIN 125 MCG TABLET Take 1 tablet by mouth once d* COMPOUNDED PRESCRIPTION BLOOD PRESSURE CUFF FOR HOME * LORAZEPAM 0.5 MG TABLET Take 1 tablet by mouth once d* CHOLECALCIFEROL (VITAMIN D3) * Take 1 capsule by mouth once * ESOMEPRAZOLE MAGNESIUM 40 MG * TAKE ONE CAPSULE BY MOUTH MARRY* HYDROCHLOROTHIAZIDE 12.5 MG C* TAKE TWO CAPSULES BY MOUTH EV* MAGNESIUM OXIDE 400 MG TABLET TAKE ONE TABLET BY MOUTH TWIC* TRAMADOL 50 MG TABLET Take 1 tablet by mouth every * GABAPENTIN 600 MG TABLET Take 1 tablet by mouth three * ATORVASTATIN 40 MG TABLET TAKE ONE TABLET BY MOUTH EVER* FUROSEMIDE 40 MG TABLET Take 1 tablet by mouth once d* LISINOPRIL 20 MG TABLET Take 1 tablet by mouth once d* CARVEDILOL 25 MG TABLET Take 1 tablet by mouth twice * PEN NEEDLE, DIABETIC 31 GAUGE* Use one needle per dose. 4 pe* EASY TOUCH INSULIN SYRINGE 0.* USE TWICE DAILY WITH insulin BLOOD SUGAR DIAGNOSTIC STRIPS Test blood sugar 3 times mervin* NYSTATIN 100,000 UNIT/GRAM TO* Apply 1 application to affect* COMPOUNDED PRESCRIPTION Magnifer for insulin syringe BLOOD-GLUCOSE METER KIT As directed NITROGLYCERIN 0.4 MG SUBLINGU* Dissolve under the tongue. O* DISPOSABLE GLOVES Use as needed for home care, * DIAPER,BRIEF,ADULT,DISPOSABLE size 2X . uses 6 daily DX: * ASPIRIN 81 MG CHEWABLE TABLET Take 1 tablet by mouth once d* * NEBULIZER ACCESSORIES KIT Nebulizer accessory kit with * * LANCETS Test blood sugars 4 times earline* ALBUTEROL SULFATE HFA 90 MCG/* Inhale 2 Puffs as instructed * MUPIROCIN 2 % TOPICAL OINTMENT Apply 1 application to affect* DICLOFENAC 1 % TOPICAL GEL Apply 2 g to affected area fo* Problem List As Of Date 04/04/2018 Noted Resolved Obesity, Class III, BMI 40-49.9 (morbid obesity*INVALID FOR* Priority: H Acute myocardial infarction, unspecified site, *INVALID FOR*07/24/2017 Hyperlipemia, mixed [E78.2] INVALID FOR* More... Ulcer of heel and midfoot (HCC) [L97.409] INVALID FOR*07/24/2017 CARBUNCLE ARM (ABOVE WRIST) [L02.429] INVALID FOR*07/24/2017 CARBUNCLE FLANK [L02.229] INVALID FOR*07/24/2017 Blood in stool [K92.1] INVALID FOR*07/24/2017 Atrial fibrillation [I48.91] INVALID FOR*10/18/2015 Asthma-chronic obstructive pulmonary disease ov* More... Contusion of foot [S90.30XA] INVALID FOR*07/24/2017 Hereditary and idiopathic peripheral neuropathy*INVALID FOR* Cannabis abuse, episodic [F12.10] INVALID FOR*07/24/2017 Eating disorder, unspecified [F50.9] INVALID FOR*07/24/2017 CERVICALGIA [M54.2] Carbuncle and furuncle of buttock [L02.33] INVALID FOR*07/24/2017 Essential hypertension [I10] INVALID FOR* More... Dermatophytosis of nail [B35.1] INVALID FOR*07/24/2017 Unspecified local infection of skin and subcuta*INVALID FOR*07/24/2017 More... Other malaise and fatigue [R53.81, R53.83] INVALID FOR*07/24/2017 ABNORMALITY OF GAIT [R26.9] INVALID FOR* WEAKNESS MUSCLE [M62.81] INVALID FOR* Multiple and unspecified open wound of lower li*INVALID FOR*07/24/2017 RESTLESS LEGS SYNDROME [G25.81] INVALID FOR* Vitamin D deficiency [E55.9] INVALID FOR* Neoplasm of unspecified nature of bone, soft ti*INVALID FOR*07/24/2017 Cellulitis and abscess of leg, except foot [L03*INVALID FOR*07/24/2017 Other hammer toe (acquired) [M20.40] INVALID FOR*07/24/2017 Obstructive chronic bronchitis without exacerba*INVALID FOR*03/07/2017 More... 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 Type II or unspecified type diabetes mellitus w*INVALID FOR*04/20/2016 SUMMARY [V999.95] INVALID FOR*07/24/2017 Priority: Severe More... CAD (coronary artery disease) [I25.10] INVALID FOR* Priority: B More... AF (atrial fibrillation) [I48.91] INVALID FOR*04/16/2017 Priority: B More... HTN (hypertension) [I10] INVALID FOR*07/24/2017 Priority: D More... Heart failure/ Ischemic Cardiomyopathy [I50.9] INVALID FOR* More... Hypothyroid [E03.9] INVALID FOR*03/22/2016 Priority: F More... Venous ulcer of leg (HCC) [I83.009, L97.909] INVALID FOR*07/24/2017 More... More... SUMMARY [V999.95] INVALID FOR*12/29/2013 More... Cellulitis of lower limb [L03.119] INVALID FOR*07/24/2017 Priority: E More... Acute renal insufficiency [N28.9] INVALID FOR*07/24/2017 More... Chest pain at rest [R07.9] INVALID FOR*07/24/2017 More... Decubitus skin ulcer [L89.90] INVALID FOR*07/24/2017 More... Hyponatremia [E87.1] INVALID FOR*07/24/2017 More... Diarrhea [R19.7] INVALID FOR*07/24/2017 More... Debility [R53.81] INVALID FOR* CKD (chronic kidney disease) stage 3, GFR 30-59*INVALID FOR* Microalbuminuria [R80.9] Knee pain [M25.569] INVALID FOR* Peripheral vascular disease [I73.9] INVALID FOR* Priority: E More... Depression/ ? Bipolar Disorder [F32.9] INVALID FOR* Priority: G More... More... Oliguria [R34] INVALID FOR*06/18/2013 More... Atherosclerosis of nonautologous biological byp*INVALID FOR*07/24/2017 Wound infection after surgery [T81.4XXA] INVALID FOR*07/24/2017 More... Shortness of breath [R06.02] INVALID FOR*07/24/2017 More... LBBB (left bundle branch block) [I44.7] INVALID FOR* Priority: D LV dysfunction [I51.9] INVALID FOR* Atherosclerosis of autologous vein bypass graft*INVALID FOR* Chronic anticoagulation [Z79.01] INVALID FOR* Priority: B More... Admission for therapeutic drug monitoring [Z51.*INVALID FOR*07/24/2017 Priority: B More... Heart failure, systolic, chronic [I50.22] INVALID FOR*03/15/2018 Priority: A More... Biventricular ICD (implantable cardioverter-def*INVALID FOR* H/O: CVA (cerebrovascular accident) [Z86.73] INVALID FOR* MAX (acute kidney injury) (HCC) [N17.9] INVALID FOR*07/24/2017 More... More... Heart failure, systolic, acute on chronic (HCC)*INVALID FOR*07/24/2017 Priority: B More... Discharge planning issues [Z02.9] INVALID FOR*03/05/2017 More... Presence of stent in right coronary artery [Z95*INVALID FOR* Presence of bare metal stent in LAD coronary ar*INVALID FOR* Chronic atrial fibrillation (HCC) [I48.2] INVALID FOR* Depressive disorder, not elsewhere classified [* Uncontrolled type 2 diabetes mellitus with diab*INVALID FOR* Morbid obesity due to excess calories (HCC) [E6*INVALID FOR*04/16/2017 History of right above knee amputation (HCC) [Z* More... Pleural effusion, bilateral [J90] INVALID FOR* More... Chronic renal insufficiency [N18.9] INVALID FOR* Endometrial cancer (HCC) [C54.1] INVALID FOR* More... Pulmonary HTN [I27.20] INVALID FOR* GERD (gastroesophageal reflux disease) [K21.9] INVALID FOR* Uterine cancer (HCC) [C55] INVALID FOR* More... Letter Text Shoshana Madden April 04, 2018 [address] [phone] Dear Shoshana; It was so nice to speak with you today regarding your recent discharge from the hospital and recuperation. Please feel free to call me with any questions or concerns to relay to Dr. Garza. If I do not answer, there is a voice mail to leave a message and I'll get back to you as soon as I can. Our Care Coordination program at the [facility] is a way to assist patients after discharge from the hospital, particularly when there are medication changes and possible need for assistance with appointments, etc. We understand that navigating the health care system is confusing and daunting at times and want to assist patients in any way we can. We also have a Pharmacist who can help with your meds and a Proposal Manager Writer. There is no additional charge for our services and is a way to help patients and their physicians stay more closely connected. Please feel free to call me anytime with any requests or questions you may have. We hope your recovery is speedy and uneventful and know we are here as a resource for you and your family. Sincerely, Ameena Cee, test hole driller [employer] [facility] Encounter Status:Closed by AMEENA CEE on 04/16/18 IR PICC LINE PLACEMENT Observed: 04/02/2018 Status: F Source: [place] [place] 10:15 AM [facility] REPOSITORY ORIGINAL ULTRASOUND AND FLUORO ASSISTED RIGHT CHEST TUNNELED PICC insertion, 04/02/2018 CLINICAL INFORMATION: Patient requires prolonged stable intravenous access. Tunneled PICC is being installed due to patient's renal status. COMPARISON: None. Informed consent was obtained. Intravenous access was established. The patient was premedicated with 1 gram of Ancef intravenously. Patient was then placed supine on the fluoroscopy table. The procedure was performed using all elements of the maximal sterility barrier technique including: cap and mask and sterile gown and gloves and sterile drapes and hand hygiene and 2% chlorhexidine for cutaneous an tisepsis. Ultrasound was used for localization and to aid singlewall puncture of RIGHT internal jugular vein. An ultrasound image of the patent vessel lumen was saved. After guidewire passage and cutane ous tract dilatation, a 6 Colombian sheath was placed into the SVC. 2% lidocaine was then then infiltrated into the upper anterior chest wall. A 2 mm horizontal skin incision was made. 2% lidocaine with ep inephrine was infiltrated from this site back up to the neck puncture site. The tunnel was formed in the usual fashion. A 6 Colombian dual lumen PICC catheter was trimmed to 29 cm and passed through the tu nnel, down the sheath into the SVC. Both lumina aspirate and flush easily. A suture was installed at the catheter entrance site and the catheter hubs were fastened in the usual fashion. Histoacryl topic al skin adhesive was used to close the neck puncture site. Sterile dressings were installed. The patient tolerated the procedure well. Fluoroscopy spot film shows the catheter extending into the superio r RIGHT atrium. Total fluoro time 0.5 minutes. Reference air kerma 15 mGy. IMPRESSION: Successful RIGHT chest tunneled PICC placement as described. The procedure was performed by Zohreh Gonzalez, Physician Outcomes Specialist. I concur with the contents of the report. Interpreted By: Angeline Parker MD Preliminary Report By: Zohreh Gonzalez PA Electronically Signed By: Angeline Parker MD Dictated Date: 04/02/2018 1:48:04 PM Prelim Date: 04/02/2018 2:29:26 PM Sign Date: 04/02/2018 5:07:42 PM CBC Collected: 04/02/2018 Status: F Source: [facility] 4:51 AM [facility] EMERGENCY DEPARTMENT REPOSITORY TYPE CODE TESTS RESULT OUT OF REFERENCE UNITS RANGE LAB WBC(LOINC) 4.50-10.80 10 3/mcL WBC 8.60 LAB RBCCT(LOINC 4.10-5.30 10 6/mcL ) Low RBC 2.97 LAB HGB(LOINC) 12.0-16.0 G/dL Low Hgb 9.4 LAB HCT(LOINC) 34.0-46.0 % Low Hct 28.0 LAB MCV(LOINC) 80.0-99.0 fL MCV 94.2 LAB MCH(LOINC) 27.0-33.0 pg MCH 31.6 LAB MCHC(LOINC) 32.0-36.0 G/dL MCHC 33.5 LAB RDW(LOINC) 11.5-15.5 % RDW 14.8 LAB PLT(LOINC) 150-450 10 3/mcL Platelet 159 LAB MPV(LOINC) 6.6-10.5 fL MPV 10.0 Performed By: #### CBC, ADIFF, ANEU, MG, BMP, GFR #### [address] [address] .AUTO DIFF Collected: 04/02/2018 Status: F Source: [facility] 4:51 [facility] REPOSITORY TYPE CODE TESTS RESULT OUT OF REFERENCE UNITS RANGE LAB KAMLA(LOINC) 50.0-75.0 % Neutrophil % 74.0 LAB LYM(LOINC) 20.0-40.0 % Low Lymphocyte % 8.7 LAB MON(LOINC) 2.0-13.0 % Monocyte % 8.8 LAB EO(LOINC) 0.0-6.0 % High Eosinophil % 7.8 LAB BAS(LOINC) 0.0-2.5 % Basophil % 0.7 LAB ABLYM(LOIN 0.90-4.32 10 3/mcL C) Low Lymphocyte, 0.70 Absolute LAB REINA(LOINC 0.09-1.40 10 3/mcL ) Monocyte, 0.80 Absolute LAB AEOS(LOINC 0.00-0.65 10 3/mcL ) High Eosinophil, 0.70 Absolute LAB ABAS(LOINC 0.00-0.27 10 3/mcL ) Basophil, 0.10 Absolute Performed By: #### CBC, ADIFF, ANEU, MG, BMP, GFR #### [address] [address] .NEUABS Collected: 04/02/2018 Status: F Source: [facility] 4:51 AM [facility] EMERGENC[facility] DEPARTMENT REPOSITORY TYPE CODE TESTS RESULT OUT OF REFERENCE UNITS RANGE LAB ANEU(LOINC) 2.25-8.10 10 3/mcL Neutrophil, 6.40 Absolute Performed By: #### CBC, ADIFF, ANEU, MG, BMP, GFR #### [address] [address] MG Collected: 04/02/2018 Status: F Source: [facility] 4:51 AM [facility] EM[facility]GENC[facility]PARTMENT REPOSITORY TYPE CODE TESTS RESULT OUT OF REFERENCE UNITS RANGE LAB MG(LOINC) 1.6-2.4 mg/dL Magnesium Lvl 2.2 Performed By: #### CBC, ADIFF, ANEU, MG, BMP, GFR #### [address] [address] BMP Collected: 04/02/2018 Status: F Source: [facility] 4:51 AM [facility] EM[facility]GENC[facility] DEPARTMENT REPOSITORY TYPE CODE TESTS RESULT OUT OF REFERENCE UNITS RANGE LAB GLU(LOINC) 70-110 mg/dL Glucose Level 80 LAB NA(LOINC) 136-145 mEq/L Sodium Level 136 LAB K(LOINC) 3.5-5.0 mEq/L Potassium Level 4.2 LAB CL(LOINC) 98-110 mEq/L Chloride 102 LAB CO2(LOINC) 22-32 mEq/L CO2 22 LAB EBAL(LOINC 4.0-15.0 mEq/L ) Electrolyte Balance 12.0 LAB BUN(LOINC) 8.0-22.0 mg/dL BUN High 28.0 LAB CRE(LOINC) 0.50-1.20 mg/dL Creatinine High Lvl (s) 3.02 LAB BC(LOINC) 10.0-22.0 ratio Low BUN/Creatinine 9.3 Ratio LAB CA(LOINC) 8.4-10.1 mg/dL Low Calcium Lvl 8.2 Performed By: #### CBC, ADIFF, ANEU, MG, BMP, GFR #### [address] [address] .GFR Collected: 04/02/2018 Status: F Source: [facility] 4:51 AM [facility] EM[facility]GENC[facility] DEPARTMENT REPOSITORY TYPE CODE TESTS RESULT OUT OF REFERENCE UNITS RANGE LAB GFRAA(LOINC ml/min/1.73 ) sqm GFR 19 [place] Result Comment: GFR Population mean for , Non- Americans Ages 20-29 = 116 mL/min/1.73 sq.m. Ages 30-39 = 107 mL/min/1.73 sq.m. Ages 40-49 = 99 mL/min/1.73 sq.m. Ages 50-59 = 93 mL/min/1.73 sq.m. Ages 60-69 = 85 mL/min/1.73 sq.m. Ages 70+ = 75 mL/min/1.73 sq.m. Chronic Kidney Disease: Less than 60 mL/min/1.73 square meters End Stage Renal Disease: Less than 15 mL/min/1.73 square meters LAB GFRNO(LOINC) ml/min/1.73sqm GFR Non- 16 Result Comment: GFR Population mean for , Non- Americans Ages 20-29 = 116 mL/min/1.73 sq.m. Ages 30-39 = 107 mL/min/1.73 sq.m. Ages 40-49 = 99 mL/min/1.73 sq.m. Ages 50-59 = 93 mL/min/1.73 sq.m. Ages 60-69 = 85 mL/min/1.73 sq.m. Ages 70+ = 75 mL/min/1.73 sq.m. Chronic Kidney Disease: Less than 60 mL/min/1.73 square meters End Stage Renal Disease: Less than 15 mL/min/1.73 square meters Performed By: #### CBC, ADIFF, ANEU, MG, BMP, GFR #### [place] [address] PRO Collected: 04/02/2018 Status: F Source: [facility] 4:51 AM [facility] REPOSITORY Order Comment: ordered secondary to warfarin order TYPE CODE TESTS RESULT OUT OF REFERENCE UNITS RANGE LAB PT(LOINC) 9.0-14.5 seconds High Protime 17.3 Result Comment: Effective 04/14/08, Protime results may be affected by some antibiotics (i.e. Ciprofloxacin, Azithromycin, Bactrim) which may potentiate the action of oral anticoagulants, with further increases in Protime/INR. LAB INR(LOINC) ratio PT International Ratio 1.5 Result Comment: The [employer] (CHEST, 1992, 102:312S-25S) recommended therapeutic range for oral anticoagulant therapy is: LOW RISK: Prophylaxis of venous thrombosis INR: 2.0-3.0 Treatment of pulmonary embolism 2.0-3.0 Prevention of systemic embolism 2.0-3.0 HIGH RISK: Mechanical prosthetic valves 2.5-3.5 Performed By: #### PRO #### [address] [address] CBC Collected: 04/01/2018 Status: F Source: [facility] 6:11 AM [facility] EMERGENC[facility]PARTMENT REPOSITORY TYPE CODE TESTS RESULT OUT OF REFERENCE UNITS RANGE LAB WBC(LOINC) 4.50-10.80 10 3/mcL WBC 6.50 LAB RBCCT(LOINC 4.10-5.30 10 6/mcL ) Low RBC 2.80 LAB HGB(LOINC) 12.0-16.0 G/dL Low Hgb 8.8 LAB HCT(LOINC) 34.0-46.0 % Low Hct 26.6 LAB MCV(LOINC) 80.0-99.0 fL MCV 94.8 LAB MCH(LOINC) 27.0-33.0 pg MCH 31.3 LAB MCHC(LOINC) 32.0-36.0 G/dL MCHC 33.0 LAB RDW(LOINC) 11.5-15.5 % RDW 15.0 LAB PLT(LOINC) 150-450 10 3/mcL Platelet 157 LAB MPV(LOINC) 6.6-10.5 fL MPV 9.1 Performed By: #### CBC, ADIFF, ANEU, BMP, MG, GFR, VANCR #### [address] [address] .AUTO DIFF Collected: 04/01/2018 Status: F Source: [facility] 6:11 AM [facility] EM[facility]GENC[facility]PARTMENT REPOSITORY TYPE CODE TESTS RESULT OUT OF REFERENCE UNITS RANGE LAB KAMLA(LOINC) 50.0-75.0 % Neutrophil % 69.6 LAB LYM(LOINC) 20.0-40.0 % Low Lymphocyte % 13.2 LAB MON(LOINC) 2.0-13.0 % Monocyte % 7.9 LAB EO(LOINC) 0.0-6.0 % High Eosinophil % 8.6 LAB BAS(LOINC) 0.0-2.5 % Basophil % 0.7 LAB ABLYM(LOIN 0.90-4.32 10 3/mcL C) Lymphocyte, 0.90 Absolute LAB REINA(LOINC 0.09-1.40 10 3/mcL ) Monocyte, 0.50 Absolute LAB AEOS(LOINC 0.00-0.65 10 3/mcL ) Eosinophil, 0.60 Absolute LAB ABAS(LOINC 0.00-0.27 10 3/mcL ) Basophil, 0.00 Absolute Performed By: #### CBC, ADIFF, ANEU, BMP, MG, GFR, VANCR #### [place] [address] .NEUABS Collected: 04/01/2018 Status: F Source: [facility] 6:11 AM [facility] EM[facility]GENC[facility] DEPARTMENT REPOSITORY TYPE CODE TESTS RESULT OUT OF REFERENCE UNITS RANGE LAB ANEU(LOINC) 2.25-8.10 10 3/mcL Neutrophil, 4.50 Absolute Performed By: #### CBC, ADIFF, ANEU, BMP, MG, GFR, VANCR #### [place] [address] BMP Collected: 04/01/2018 Status: F Source: [facility] 6:11 AM [facility] EM[facility]GENC[facility]PARTMENT REPOSITORY TYPE CODE TESTS RESULT OUT OF REFERENCE UNITS RANGE LAB GLU(LOINC) 70-110 mg/dL Glucose High Level 128 LAB NA(LOINC) 136-145 mEq/L Sodium Level 138 LAB K(LOINC) 3.5-5.0 mEq/L Potassium Level 4.2 LAB CL(LOINC) 98-110 mEq/L Chloride 104 LAB CO2(LOINC) 22-32 mEq/L CO2 23 LAB EBAL(LOINC 4.0-15.0 mEq/L ) Electrolyte Balance 11.0 LAB BUN(LOINC) 8.0-22.0 mg/dL BUN High 24.0 LAB CRE(LOINC) 0.50-1.20 mg/dL Creatinine High Lvl (s) 2.64 LAB BC(LOINC) 10.0-22.0 ratio Low BUN/Creatinine 9.1 Ratio LAB CA(LOINC) 8.4-10.1 mg/dL Low Calcium Lvl 8.1 Performed By: #### CBC, ADIFF, ANEU, BMP, MG, GFR, VANCR #### [place] [address] MG Collected: 04/01/2018 Status: F Source: [facility] 6:11 AM [facility] EM[facility]GENC[facility] DEPARTMENT REPOSITORY TYPE CODE TESTS RESULT OUT OF REFERENCE UNITS RANGE LAB MG(LOINC) 1.6-2.4 mg/dL Magnesium Lvl 1.9 Performed By: #### CBC, ADIFF, ANEU, BMP, MG, GFR, VANCR #### [address] [address] .GFR Collected: 04/01/2018 Status: F Source: [facility] 6:11 AM [facility] EM[facility]GENC[facility] DEPARTMENT REPOSITORY TYPE CODE TESTS RESULT OUT OF REFERENCE UNITS RANGE LAB GFRAA(LOINC ml/min/1.73 ) sqm GFR 23 [place] Result Comment: GFR Population mean for , Non- Americans Ages 20-29 = 116 mL/min/1.73 sq.m. Ages 30-39 = 107 mL/min/1.73 sq.m. Ages 40-49 = 99 mL/min/1.73 sq.m. Ages 50-59 = 93 mL/min/1.73 sq.m. Ages 60-69 = 85 mL/min/1.73 sq.m. Ages 70+ = 75 mL/min/1.73 sq.m. Chronic Kidney Disease: Less than 60 mL/min/1.73 square meters End Stage Renal Disease: Less than 15 mL/min/1.73 square meters LAB GFRNO(LOINC) ml/min/1.73sqm GFR Non- 19 Result Comment: GFR Population mean for , Non- Americans Ages 20-29 = 116 mL/min/1.73 sq.m. Ages 30-39 = 107 mL/min/1.73 sq.m. Ages 40-49 = 99 mL/min/1.73 sq.m. Ages 50-59 = 93 mL/min/1.73 sq.m. Ages 60-69 = 85 mL/min/1.73 sq.m. Ages 70+ = 75 mL/min/1.73 sq.m. Chronic Kidney Disease: Less than 60 mL/min/1.73 square meters End Stage Renal Disease: Less than 15 mL/min/1.73 square meters Performed By: #### CBC, ADIFF, ANEU, BMP, MG, GFR, VANCR #### [address] [address] VANCR Collected: 04/01/2018 Status: F Source: [facility] 6:11 AM [facility] EM[facility]PART[facility] REPOSITORY TYPE CODE TESTS RESULT OUT OF REFERENCE UNITS RANGE LAB LD021(LOIN C) LDose Vancomycin: See eMAR (random) LAB VANR(LOINC mcg/mL ) Vancomycin Lvl 30.0 (random) Result Comment: No normal reference range reported for random vancomycin testing. Performed By: #### CBC, ADIFF, ANEU, BMP, MG, GFR, VANCR #### [place] [address] PRO Collected: 04/01/2018 Status: F Source: [facility] 6:11 AM [facility]PART[facility] REPOSITORY Order Comment: ordered secondary to warfarin order TYPE CODE TESTS RESULT OUT OF REFERENCE UNITS RANGE LAB PT(LOINC) 9.0-14.5 seconds High Protime 17.3 Result Comment: Effective 04/14/08, Protime results may be affected by some antibiotics (i.e. Ciprofloxacin, Azithromycin, Bactrim) which may potentiate the action of oral anticoagulants, with further increase in Protime/INR. LAB INR(LOINC) ratio PT International Ratio 1.5 Result Comment: The [place] [employer] (CHEST, 1992, 102:312S-25S) recommended therapeutic range for oral anticoagulant therapy is: LOW RISK: Prophylaxis of venous thrombosis INR: 2.0-3.0 Treatment of pulmonary embolism 2.0-3.0 Prevention of systemic embolism 2.0-3.0 HIGH RISK: Mechanical prosthetic valves 2.5-3.5 Performed By: #### PRO #### [place] [address] BMP Collected: 03/31/2018 Status: F Source: [facility] 2:15 PM [facility] EM[facility]PARTMENT REPOSITORY TYPE CODE TESTS RESULT OUT OF REFERENCE UNITS RANGE LAB GLU(LOINC) 70-110 mg/dL Glucose High Level 121 LAB NA(LOINC) 136-145 mEq/L Sodium Level 139 LAB K(LOINC) 3.5-5.0 mEq/L Potassium Level 4.0 LAB CL(LOINC) 98-110 mEq/L Chloride 106 LAB CO2(LOINC) 22-32 mEq/L Low CO2 20 LAB EBAL(LOINC 4.0-15.0 mEq/L ) Electrolyte Balance 13.0 LAB BUN(LOINC) 8.0-22.0 mg/dL BUN High 26.0 LAB CRE(LOINC) 0.50-1.20 mg/dL Creatinine High Lvl (s) 2.54 LAB BC(LOINC) 10.0-22.0 ratio BUN/Creatinine 10.2 Ratio LAB CA(LOINC) 8.4-10.1 mg/dL Low Calcium Lvl 8.1 Performed By: #### BMP, GFR #### [address] [address] .GFR Collected: 03/31/2018 Status: F Source: [facility] 2:15 PM [facility] REPOSITORY TYPE CODE TESTS RESULT OUT OF REFERENCE UNITS RANGE LAB GFRAA(LOINC ml/min/1.73 ) sqm GFR 24 [place] Result Comment: GFR Population mean for , Non- Americans Ages 20-29 = 116 mL/min/1.73 sq.m. Ages 30-39 = 107 mL/min/1.73 sq.m. Ages 40-49 = 99 mL/min/1.73 sq.m. Ages 50-59 = 93 mL/min/1.73 sq.m. Ages 60-69 = 85 mL/min/1.73 sq.m. Ages 70+ = 75 mL/min/1.73 sq.m. Chronic Kidney Disease: Less than 60 mL/min/1.73 square meters End Stage Renal Disease: Less than 15 mL/min/1.73 square meters LAB GFRNO(LOINC) ml/min/1.73sqm GFR Non- 20 Result Comment: GFR Population mean for , Non- Americans Ages 20-29 = 116 mL/min/1.73 sq.m. Ages 30-39 = 107 mL/min/1.73 sq.m. Ages 40-49 = 99 mL/min/1.73 sq.m. Ages 50-59 = 93 mL/min/1.73 sq.m. Ages 60-69 = 85 mL/min/1.73 sq.m. Ages 70+ = 75 mL/min/1.73 sq.m. Chronic Kidney Disease: Less than 60 mL/min/1.73 square meters End Stage Renal Disease: Less than 15 mL/min/1.73 square meters Performed By: #### BMP, GFR #### [place] [address] VANCT Collected: 03/31/2018 Status: F Source: [facility] 2:15 PM [facility] EM[facility]PART[facility] REPOSITORY TYPE CODE TESTS RESULT OUT OF RANGE REFERENCE UNITS LAB LD019(LOIN C) LDose Vancomycin:(trou Unknown gh) LAB VANT(LOINC 5.0-20.0 mcg/mL ) Abnormal Vancomycin Tr 43.6 Alert Result Comment: Call to pharmacy at EXT. [id number] Performed By: #### VANCT #### [place] [address] CRUR Collected: 03/31/2018 Status: F Source: [facility] 12:49 PM [facility] EM[facility]PART[facility] REPOSITORY TYPE CODE TESTS RESULT OUT OF REFERENCE UNITS RANGE LAB CRU(LOINC) mg/dL U Creatinine 56.6 Performed By: #### ALEJANDRA, NACONSTANCE #### [place] [address] NAUR Collected: 03/31/2018 Status: F Source: [facility] 12:49 PM [facility] EM[facility]PART[facility] REPOSITORY TYPE CODE TESTS RESULT OUT OF REFERENCE UNITS RANGE LAB OSCAR(LOINC) mEq/L U Sodium 49.0 Performed By: #### ALEJANDRA, NAUR #### [place] [address] CBC Collected: 03/31/2018 Status: F Source: [facility] 2:48 AM [facility] EM[facility]PART[facility] REPOSITORY TYPE CODE TESTS RESULT OUT OF REFERENCE UNITS RANGE LAB WBC(LOINC) 4.50-10.80 10 3/mcL WBC 8.20 LAB RBCCT(LOINC 4.10-5.30 10 6/mcL ) Low RBC 2.85 LAB HGB(LOINC) 12.0-16.0 G/dL Low Hgb 8.9 LAB HCT(LOINC) 34.0-46.0 % Low Hct 26.9 LAB MCV(LOINC) 80.0-99.0 fL MCV 94.4 LAB MCH(LOINC) 27.0-33.0 pg MCH 31.2 LAB MCHC(LOINC) 32.0-36.0 G/dL MCHC 33.0 LAB RDW(LOINC) 11.5-15.5 % RDW 14.7 LAB PLT(LOINC) 150-450 10 3/mcL Platelet 161 LAB MPV(LOINC) 6.6-10.5 fL MPV 10.0 Performed By: #### CBC, ADIFF, ANEU, MG, BMP, GFR #### [place] [address] .AUTO DIFF Collected: 03/31/2018 Status: F Source: [facility] 2:48 AM [facility] EM[facility]GENC[facility] DEPARTMENT REPOSITORY TYPE CODE TESTS RESULT OUT OF REFERENCE UNITS RANGE LAB KAMLA(LOINC) 50.0-75.0 % Neutrophil % 70.3 LAB LYM(LOINC) 20.0-40.0 % Low Lymphocyte % 11.3 LAB MON(LOINC) 2.0-13.0 % Monocyte % 8.1 LAB EO(LOINC) 0.0-6.0 % High Eosinophil % 9.2 LAB BAS(LOINC) 0.0-2.5 % Basophil % 1.1 LAB ABLYM(LOIN 0.90-4.32 10 3/mcL C) Lymphocyte, 0.90 Absolute LAB REINA(LOINC 0.09-1.40 10 3/mcL ) Monocyte, 0.70 Absolute LAB AEOS(LOINC 0.00-0.65 10 3/mcL ) High Eosinophil, 0.80 Absolute LAB ABAS(LOINC 0.00-0.27 10 3/mcL ) Basophil, 0.10 Absolute Performed By: #### CBC, ADIFF, ANEU, MG, BMP, GFR #### [place] [address] .NEUABS Collected: 03/31/2018 Status: F Source: [facility] 2:48 AM [facility] EM[facility] DEPARTMENT REPOSITORY TYPE CODE TESTS RESULT OUT OF REFERENCE UNITS RANGE LAB ANEU(LOINC) 2.25-8.10 10 3/mcL Neutrophil, 5.80 Absolute Performed By: #### CBC, ADIFF, ANEU, MG, BMP, GFR #### [place] [address] MG Collected: 03/31/2018 Status: F Source: [facility] 2:48 AM [facility] EM[facility]PARTMENT REPOSITORY TYPE CODE TESTS RESULT OUT OF REFERENCE UNITS RANGE LAB MG(LOINC) 1.6-2.4 mg/dL Magnesium Lvl 1.8 Performed By: #### CBC, ADIFF, ANEU, MG, BMP, GFR #### [place] [address] BMP Collected: 03/31/2018 Status: F Source: [facility] 2:48 AM [facility]PARTMENT REPOSITORY TYPE CODE TESTS RESULT OUT OF REFERENCE UNITS RANGE LAB GLU(LOINC) 70-110 mg/dL Glucose High Level 130 LAB NA(LOINC) 136-145 mEq/L Sodium Level 137 LAB K(LOINC) 3.5-5.0 mEq/L Potassium Level 3.6 LAB CL(LOINC) 98-110 mEq/L Chloride 104 LAB CO2(LOINC) 22-32 mEq/L Low CO2 21 LAB EBAL(LOINC 4.0-15.0 mEq/L ) Electrolyte Balance 12.0 LAB BUN(LOINC) 8.0-22.0 mg/dL BUN High 25.0 LAB CRE(LOINC) 0.50-1.20 mg/dL Creatinine High Lvl (s) 2.41 LAB BC(LOINC) 10.0-22.0 ratio BUN/Creatinine 10.4 Ratio LAB CA(LOINC) 8.4-10.1 mg/dL Low Calcium Lvl 8.1 Performed By: #### CBC, ADIFF, ANEU, MG, BMP, GFR #### [place] [address] .GFR Collected: 03/31/2018 Status: F Source: [facility] 2:48 AM [facility]PART[facility] REPOSITORY TYPE CODE TESTS RESULT OUT OF REFERENCE UNITS RANGE LAB GFRAA(LOINC ml/min/1.73 ) sqm GFR 25 [place] Result Comment: GFR Population mean for , Non- Americans Ages 20-29 = 116 mL/min/1.73 sq.m. Ages 30-39 = 107 mL/min/1.73 sq.m. Ages 40-49 = 99 mL/min/1.73 sq.m. Ages 50-59 = 93 mL/min/1.73 sq.m. Ages 60-69 = 85 mL/min/1.73 sq.m. Ages 70+ = 75 mL/min/1.73 sq.m. Chronic Kidney Disease: Less than 60 mL/min/1.73 square meters End Stage Renal Disease: Less than 15 mL/min/1.73 square meters LAB GFRNO(LOINC) ml/min/1.73sqm GFR Non- 21 Result Comment: GFR Population mean for , Non- Americans Ages 20-29 = 116 mL/min/1.73 sq.m. Ages 30-39 = 107 mL/min/1.73 sq.m. Ages 40-49 = 99 mL/min/1.73 sq.m. Ages 50-59 = 93 mL/min/1.73 sq.m. Ages 60-69 = 85 mL/min/1.73 sq.m. Ages 70+ = 75 mL/min/1.73 sq.m. Chronic Kidney Disease: Less than 60 mL/min/1.73 square meters End Stage Renal Disease: Less than 15 mL/min/1.73 square meters Performed By: #### CBC, ADIFF, ANEU, MG, BMP, GFR #### [address] [address] PRO Collected: 03/31/2018 Status: F Source: [facility] 2:48 AM [facility] REPOSITORY Order Comment: ordered secondary to warfarin order TYPE CODE TESTS RESULT OUT OF REFERENCE UNITS RANGE LAB PT(LOINC) 9.0-14.5 seconds High Protime 15.7 Result Comment: Effective 04/14/08, Protime results may be affected by some antibiotics (i.e. Ciprofloxacin, Azithromycin, Bactrim) which may potentiate the action of oral anticoagulants, with further increase in Protime/INR. LAB INR(LOINC) ratio PT International Ratio 1.4 Result Comment: The [employer] (CHEST, 1992, [id number]) recommended therapeutic range for oral anticoagulant therapy is: LOW RISK: Prophylaxis of venous thrombosis INR: 2.0-3.0 Treatment of pulmonary embolism 2.0-3.0 Prevention of systemic embolism 2.0-3.0 HIGH RISK: Mechanical prosthetic valves 2.5-3.5 Performed By: #### PRO #### [address] [id number] VANCT Collected: 03/31/2018 Status: F Source: [facility] 2:48 AM [facility] EMERGENC[facility] DEPART[facility] REPOSITORY TYPE CODE TESTS RESULT OUT OF RANGE REFERENCE UNITS LAB LD019(LOIN C) LDose Vancomycin:(trou See eMAR gh) LAB VANT(LOINC 5.0-20.0 mcg/mL ) Abnormal Vancomycin Tr 36.0 Alert Result Comment: Call to pharmacy at EXT. [phone] Performed By: #### VANCT #### [place] [id number] CBC Collected: 03/30/2018 Status: F Source: [facility] 4:31 AM [facility] EMERGENC[facility] DEPARTMENT REPOSITORY TYPE CODE TESTS RESULT OUT OF REFERENCE UNITS RANGE LAB WBC(LOINC) 4.50-10.80 10 3/mcL WBC 8.10 LAB RBCCT(LOINC 4.10-5.30 10 6/mcL ) Low RBC 2.89 LAB HGB(LOINC) 12.0-16.0 G/dL Low Hgb 9.0 LAB HCT(LOINC) 34.0-46.0 % Low Hct 27.4 LAB MCV(LOINC) 80.0-99.0 fL MCV 94.7 LAB MCH(LOINC) 27.0-33.0 pg MCH 31.2 LAB MCHC(LOINC) 32.0-36.0 G/dL MCHC 32.9 LAB RDW(LOINC) 11.5-15.5 % RDW 14.9 LAB PLT(LOINC) 150-450 10 3/mcL Platelet 201 LAB MPV(LOINC) 6.6-10.5 fL MPV 9.0 Performed By: #### CBC, ADIFF, ANEU, MG, BMP, GFR #### [address] [address] .AUTO DIFF Collected: 03/30/2018 Status: F Source: [facility] 4:31 AM [facility] EMERGENCY DEPARTMENT REPOSITORY TYPE CODE TESTS RESULT OUT OF REFERENCE UNITS RANGE LAB KAMLA(LOINC) 50.0-75.0 % Neutrophil % 72.7 LAB LYM(LOINC) 20.0-40.0 % Low Lymphocyte % 11.8 LAB MON(LOINC) 2.0-13.0 % Monocyte % 6.9 LAB EO(LOINC) 0.0-6.0 % High Eosinophil % 8.0 LAB BAS(LOINC) 0.0-2.5 % Basophil % 0.6 LAB ABLYM(LOIN 0.90-4.32 10 3/mcL C) Lymphocyte, 1.00 Absolute LAB REINA(LOINC 0.09-1.40 10 3/mcL ) Monocyte, 0.60 Absolute LAB AEOS(LOINC 0.00-0.65 10 3/mcL ) High Eosinophil, 0.70 Absolute LAB ABAS(LOINC 0.00-0.27 10 3/mcL ) Basophil, 0.00 Absolute Performed By: #### CBC, ADIFF, ANEU, MG, BMP, GFR #### [place] [address] .NEUABS Collected: 03/30/2018 Status: F Source: [facility] 4:31 AM [facility] EMERGENCY DEPARTMENT REPOSITORY TYPE CODE TESTS RESULT OUT OF REFERENCE UNITS RANGE LAB ANEU(LOINC) 2.25-8.10 10 3/mcL Neutrophil, 5.90 Absolute Performed By: #### CBC, ADIFF, ANEU, MG, BMP, GFR #### [place] [address] MG Collected: 03/30/2018 Status: F Source: [facility] 4:31 AM [facility] EMERGENCY DEPARTMENT REPOSITORY TYPE CODE TESTS RESULT OUT OF REFERENCE UNITS RANGE LAB MG(LOINC) 1.6-2.4 mg/dL Magnesium Lvl 2.0 Performed By: #### CBC, ADIFF, ANEU, MG, BMP, GFR #### [place] [address] BMP Collected: 03/30/2018 Status: F Source: [facility] 4:31 AM [facility] EMERGENCY DEPARTMENT REPOSITORY TYPE CODE TESTS RESULT OUT OF REFERENCE UNITS RANGE LAB GLU(LOINC) 70-110 mg/dL Low Glucose Level 67 LAB NA(LOINC) 136-145 mEq/L Sodium Level 142 LAB K(LOINC) 3.5-5.0 mEq/L Potassium Level 3.5 LAB CL(LOINC) 98-110 mEq/L Chloride 106 LAB CO2(LOINC) 22-32 mEq/L CO2 27 LAB EBAL(LOINC 4.0-15.0 mEq/L ) Electrolyte Balance 9.0 LAB BUN(LOINC) 8.0-22.0 mg/dL BUN High 24.0 LAB CRE(LOINC) 0.50-1.20 mg/dL Creatinine High Lvl (s) 1.98 LAB BC(LOINC) 10.0-22.0 ratio BUN/Creatinine 12.1 Ratio LAB CA(LOINC) 8.4-10.1 mg/dL Calcium Lvl 8.7 Performed By: #### CBC, ADIFF, ANEU, MG, BMP, GFR #### [place] [address] .GFR Collected: 03/30/2018 Status: F Source: [facility] 4:31 AM [facility] EMERGENCY DEPARTMENT REPOSITORY TYPE CODE TESTS RESULT OUT OF REFERENCE UNITS RANGE LAB GFRAA(LOINC ml/min/1.73 ) sqm GFR 32 Iraqi Result Comment: GFR Population mean for , Non- Americans Ages 20-29 = 116 mL/min/1.73 sq.m. Ages 30-39 = 107 mL/min/1.73 sq.m. Ages 40-49 = 99 mL/min/1.73 sq.m. Ages 50-59 = 93 mL/min/1.73 sq.m. Ages 60-69 = 85 mL/min/1.73 sq.m. Ages 70+ = 75 mL/min/1.73 sq.m. Chronic Kidney Disease: Less than 60 mL/min/1.73 square meters End Stage Renal Disease: Less than 15 mL/min/1.73 square meters LAB GFRNO(LOINC) ml/min/1.73sqm GFR Non- 26 Result Comment: GFR Population mean for , Non- Americans Ages 20-29 = 116 mL/min/1.73 sq.m. Ages 30-39 = 107 mL/min/1.73 sq.m. Ages 40-49 = 99 mL/min/1.73 sq.m. Ages 50-59 = 93 mL/min/1.73 sq.m. Ages 60-69 = 85 mL/min/1.73 sq.m. Ages 70+ = 75 mL/min/1.73 sq.m. Chronic Kidney Disease: Less than 60 mL/min/1.73 square meters End Stage Renal Disease: Less than 15 mL/min/1.73 square meters Performed By: #### CBC, ADIFF, ANEU, MG, BMP, GFR #### [place] [address] PRO Collected: 03/30/2018 Status: F Source: [facility] 4:31 AM [facility] EM[facility] DEPARTMENT REPOSITORY Order Comment: ordered secondary to warfarin order TYPE CODE TESTS RESULT OUT OF REFERENCE UNITS RANGE LAB PT(LOINC) 9.0-14.5 seconds High Protime 15.5 Result Comment: Effective 04/14/08, Protime results may be affected by some antibiotics (i.e. Ciprofloxacin, Azithromycin, Bactrim) which may potentiate the action of oral anticoagulants, with further increase in Protime/INR. LAB INR(LOINC) ratio PT International Ratio 1.3 Result Comment: The [employer] (CHEST, 1992, 102:312S-25S) recommended therapeutic range for oral anticoagulant therapy is: LOW RISK: Prophylaxis of venous thrombosis INR: 2.0-3.0 Treatment of pulmonary embolism 2.0-3.0 Prevention of systemic embolism 2.0-3.0 HIGH RISK: Mechanical prosthetic valves 2.5-3.5 Performed By: #### PRO #### [facility] [address] [place] [address] Observed: 03/29/2018 Status: F Source: [facility] 1:16 PM FOUNDATION REPOSITORY . MICRO - Microbiology PROCEDURE: Culture Wound Deep Aerobe/Anaerobe w Gram Stain [*1] SOURCE: Wound (deep) BODY SITE: Abdomen COLLECTED DATE/TIME: 03/29/2018 13:16 EDT RECEIVED DATE/TIME: 03/29/2018 13:22 EDT START DATE/TIME: 03/29/2018 13:22 EDT FREE TEXT SOURCE: incision site FINAL REPORTS Final Report [] Verified Date/Time/Personnel: 04/03/2018 10:20 EDT Light Proteus mirabilis Light Staphylococcus aureus Few Clostridium ramosum Beta-Lactamase: Negative Susceptibility testing on anaerobic bacteria not done. Many technical and interpretive difficulties are associated with this testing and in many cases antimicrobial therapy is used as an adjunct to primary surgical management. Please contact Microbiology with any questions ([phone]). PRELIMINARY REPORTS Preliminary Report [] Verified Date/Time/Personnel: 04/02/2018 12:44 EDT Light Proteus mirabilis Light Staphylococcus aureus Few Anaerobic Gram Negative Thanh Beta-Lactamase: Negative Identification to follow.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 Status: F Source: [facility] 3:49 AM [facility] REPOSIT[facility] TYPE CODE TESTS RESULT OUT OF REFERENCE UNITS RANGE LAB PDOSE(LOIN C) Heparin dose Heparin IV (APTT) LAB APTT0(LOIN 25.0-35.0 seconds C) High APTT 77.4 Result Comment: For Heparin anticoagulation therapy, the recommended therapeutic range is: 54-77 seconds (APTT Correlation with Anti-Xa therapeutic range of 0.3-0.7 units/ml). PLEASE REFERENCE THE PHARMACY PROTOCOL FOR DOSING. Performed By: #### APTT, FIB #### [address] [address] FIB Collected: 03/11/2018 Status: F Source: [facility] 3:49 AM [facility] EMERGENCY DEPARTMENT REPOSITORY TYPE CODE TESTS RESULT OUT OF REFERENCE UNITS RANGE LAB FIB(LOINC) 250-550 mg/dL High Fibrinogen >700 Performed By: #### APTT, FIB #### [address] [address] APTT Collected: 03/11/2018 Status: F Source: [facility] 2:38 AM [facility] EMERGENCY DEPARTMENT REPOSITORY TYPE CODE TESTS RESULT OUT OF REFERENCE UNITS RANGE LAB PDOSE(LOIN C) Heparin dose Heparin IV (APTT) LAB APTT0(LOIN 25.0-35.0 seconds C) High APTT 76.6 Result Comment: For Heparin anticoagulation therapy, the recommended therapeutic range is: 54-77 seconds (APTT Correlation with Anti-Xa therapeutic range of 0.3-0.7 units/ml). PLEASE REFERENCE THE PHARMACY PROTOCOL FOR DOSING. Performed By: #### APTT #### [address] [address] APTT Collected: 03/10/2018 Status: F Source: [facility] 7:52 PM [facility] EMERGENCY DEPARTMENT REPOSITORY TYPE CODE TESTS RESULT OUT OF REFERENCE UNITS RANGE LAB PDOSE(LOIN C) Heparin dose Heparin IV (APTT) LAB APTT0(LOIN 25.0-35.0 seconds C) High APTT 66.9 Result Comment: For Heparin anticoagulation therapy, the recommended therapeutic range is: 54-77 seconds (APTT Correlation with Anti-Xa therapeutic range of 0.3-0.7 units/ml). PLEASE REFERENCE THE PHARMACY PROTOCOL FOR DOSING. Performed By: #### APTT #### [address] [address] APTT Collected: 03/10/2018 Status: F Source: [facility] 1:53 PM [facility] EMERGENCY DEPARTMENT REPOSITORY TYPE CODE TESTS RESULT OUT OF RANGE REFERENCE UNITS LAB PDOSE(LOIN C) Heparin dose Heparin IV (APTT) LAB APTT0(LOIN 25.0-35.0 seconds C) Abnormal APTT 121.5 Alert Result Comment: For Heparin anticoagulation therapy, the recommended therapeutic range is: 54-77 seconds (APTT Correlation with Anti-Xa therapeutic range of 0.3-0.7 units/ml). PLEASE REFERENCE THE PHARMACY PROTOCOL FOR DOSING. Performed By: #### APTT #### [place] [id number] CBC Collected: 03/10/2018 Status: F Source: [facility] 8:54 AM [facility] EMERGENCY DEPARTMENT REPOSITORY TYPE CODE TESTS RESULT OUT OF REFERENCE UNITS RANGE LAB WBC(LOINC) 4.50-10.80 10 3/mcL WBC 8.20 LAB RBCCT(LOINC 4.10-5.30 10 6/mcL ) Low RBC 2.68 LAB HGB(LOINC) 12.0-16.0 G/dL Low Hgb 8.8 LAB HCT(LOINC) 34.0-46.0 % Low Hct 25.7 LAB MCV(LOINC) 80.0-99.0 fL MCV 95.8 LAB MCH(LOINC) 27.0-33.0 pg MCH 32.8 LAB MCHC(LOINC) 32.0-36.0 G/dL MCHC 34.3 LAB RDW(LOINC) 11.5-15.5 % RDW 14.2 LAB PLT(LOINC) 150-450 10 3/mcL Low Platelet 141 LAB MPV(LOINC) 6.6-10.5 fL MPV 9.3 Performed By: #### CBC, ADIFF, ANEU #### [place] [address] .AUTO DIFF Collected: 03/10/2018 Status: F Source: [facility] 8:54 AM [facility] EMERGENCY DEPARTMENT REPOSITORY TYPE CODE TESTS RESULT OUT OF REFERENCE UNITS RANGE LAB KAMLA(LOINC) 50.0-75.0 % Neutrophil % 73.1 LAB LYM(LOINC) 20.0-40.0 % Low Lymphocyte % 11.9 LAB MON(LOINC) 2.0-13.0 % Monocyte % 9.6 LAB EO(LOINC) 0.0-6.0 % Eosinophil % 4.8 LAB BAS(LOINC) 0.0-2.5 % Basophil % 0.6 LAB ABLYM(LOIN 0.90-4.32 10 3/mcL C) Lymphocyte, 1.00 Absolute LAB REINA(LOINC 0.09-1.40 10 3/mcL ) Monocyte, 0.80 Absolute LAB AEOS(LOINC 0.00-0.65 10 3/mcL ) Eosinophil, 0.40 Absolute LAB ABAS(LOINC 0.00-0.27 10 3/mcL ) Basophil, 0.00 Absolute Performed By: #### CBC, ADIFF, ANEU #### [place] [address] .NEUABS Collected: 03/10/2018 Status: F Source: [facility] 8:54 AM [facility] EMERGENCY DEPARTMENT REPOSITORY TYPE CODE TESTS RESULT OUT OF REFERENCE UNITS RANGE LAB ANEU(LOINC) 2.25-8.10 10 3/mcL Neutrophil, 6.00 Absolute Performed By: #### CBC, ADIFF, ANEU #### [place] [address] PRO Collected: 03/10/2018 Status: F Source: [facility] 5:45 AM [facility] EMERGENCY DEPARTMENT REPOSITORY Order Comment: ordered secondary to warfarin order TYPE CODE TESTS RESULT OUT OF REFERENCE UNITS RANGE LAB PT(LOINC) 9.0-14.5 seconds High Protime 18.4 Result Comment: Effective 04/14/08, Protime results may be affected by some antibiotics (i.e. Ciprofloxacin, Azithromycin, Bactrim) which may potentiate the action of oral anticoagulants, with further increases in Protime/INR. LAB INR(LOINC) ratio PT International Ratio 1.6 Result Comment: [employer] (CHEST, 1992, 102:312S-25S) recommended therapeutic range for oral anticoagulant therapy is: LOW RISK: Prophylaxis of venous thrombosis INR: 2.0-3.0 Treatment of pulmonary embolism 2.0-3.0 Prevention of systemic embolism 2.0-3.0 HIGH RISK: Mechanical prosthetic valves 2.5-3.5 Performed By: #### PRO, MG, BMP, GFR #### [place] [address] MG Collected: 03/10/2018 Status: F Source: [facility] 5:45 AM [facility] EMERGENCY DEPARTMENT REPOSITORY TYPE CODE TESTS RESULT OUT OF REFERENCE UNITS RANGE LAB MG(LOINC) 1.6-2.4 mg/dL Magnesium Lvl 1.6 Performed By: #### PRO, MG, BMP, GFR #### [place] [address] BMP Collected: 03/10/2018 Status: F Source: [facility] 5:45 AM [facility] EMERGENCY DEPARTMENT REPOSITORY TYPE CODE TESTS RESULT OUT OF REFERENCE UNITS RANGE LAB GLU(LOINC) 70-110 mg/dL Glucose Level 80 LAB NA(LOINC) 136-145 mEq/L Sodium Level 141 LAB K(LOINC) 3.5-5.0 mEq/L Potassium Level 4.6 LAB CL(LOINC) 98-110 mEq/L Chloride 107 LAB CO2(LOINC) 22-32 mEq/L CO2 24 LAB EBAL(LOINC 4.0-15.0 mEq/L ) Electrolyte Balance 10.0 LAB BUN(LOINC) 8.0-22.0 mg/dL BUN High 44.0 LAB CRE(LOINC) 0.50-1.20 mg/dL Creatinine High Lvl (s) 2.12 LAB BC(LOINC) 10.0-22.0 ratio BUN/Creatinine 20.8 Ratio LAB CA(LOINC) 8.4-10.1 mg/dL Calcium Lvl 9.1 Performed By: #### PRO, MG, BMP, GFR #### [place] [address] .GFR Collected: 03/10/2018 Status: F Source: [facility] 5:45 AM [facility] REPOSITORY TYPE CODE TESTS RESULT OUT OF REFERENCE UNITS RANGE LAB GFRAA(LOINC ml/min/1.73 ) sqm GFR 29 [place] Result Comment: GFR Population mean for , Non- Americans Ages 20-29 = 116 mL/min/1.73 sq.m. Ages 30-39 = 107 mL/min/1.73 sq.m. Ages 40-49 = 99 mL/min/1.73 sq.m. Ages 50-59 = 93 mL/min/1.73 sq.m. Ages 60-69 = 85 mL/min/1.73 sq.m. Ages 70+ = 75 mL/min/1.73 sq.m. Chronic Kidney Disease: Less than 60 mL/min/1.73 square meters End Stage Renal Disease: Less than 15 mL/min/1.73 square meters LAB GFRNO(LOINC) ml/min/1.73sqm GFR Non- 24 Result Comment: GFR Population mean for , Non- Americans Ages 20-29 = 116 mL/min/1.73 sq.m. Ages 30-39 = 107 mL/min/1.73 sq.m. Ages 40-49 = 99 mL/min/1.73 sq.m. Ages 50-59 = 93 mL/min/1.73 sq.m. Ages 60-69 = 85 mL/min/1.73 sq.m. Ages 70+ = 75 mL/min/1.73 sq.m. Chronic Kidney Disease: Less than 60 mL/min/1.73 square meters End Stage Renal Disease: Less than 15 mL/min/1.73 square meters Performed By: #### PRO, MG, BMP, GFR #### [place] [address] APTT Collected: 03/10/2018 Status: F Source: [facility] 5:45 AM [facility] EMERGENCY DEPARTMENT REPOSITORY TYPE CODE TESTS RESULT OUT OF REFERENCE UNITS RANGE LAB PDOSE(LOIN C) Heparin dose Heparin IV (APTT) LAB APTT0(LOIN 25.0-35.0 seconds C) APTT 32.1 Result Comment: For Heparin anticoagulation therapy, the recommended therapeutic range is: 54-77 seconds (APTT Correlation with Anti-Xa therapeutic range of 0.3-0.7 units/ml). PLEASE REFERENCE THE PHARMACY PROTOCOL FOR DOSING. Performed By: #### APTT, FIB, PLT #### [place] [address] FIB Collected: 03/10/2018 Status: F Source: [facility] 5:45 AM [facility] EMERGENCY DEPARTMENT REPOSITORY TYPE CODE TESTS RESULT OUT OF REFERENCE UNITS RANGE LAB FIB(LOINC) 250-550 mg/dL High Fibrinogen >700 Performed By: #### APTT, FIB, PLT #### [place] [address] PLT Collected: 03/10/2018 Status: F Source: [facility] 5:45 AM [facility] EMERGENCY DEPARTMENT REPOSITORY TYPE CODE TESTS RESULT OUT OF REFERENCE UNITS RANGE LAB PLT(LOINC) 150-450 10 3/mcL Low Platelet 141 Performed By: #### APTT, FIB, PLT #### [place] [address] CBC Collected: 03/09/2018 Status: F Source: [facility] 6:17 AM [facility] EMERGENCY DEPARTMENT REPOSITORY TYPE CODE TESTS RESULT OUT OF REFERENCE UNITS RANGE LAB WBC(LOINC) 4.50-10.80 10 3/mcL WBC 7.00 LAB RBCCT(LOINC 4.10-5.30 10 6/mcL ) Low RBC 2.59 LAB HGB(LOINC) 12.0-16.0 G/dL Low Hgb 8.6 LAB HCT(LOINC) 34.0-46.0 % Low Hct 24.6 LAB MCV(LOINC) 80.0-99.0 fL MCV 94.8 LAB MCH(LOINC) 27.0-33.0 pg High MCH 33.2 LAB MCHC(LOINC) 32.0-36.0 G/dL MCHC 35.0 LAB RDW(LOINC) 11.5-15.5 % RDW 14.1 LAB PLT(LOINC) 150-450 10 3/mcL Low Platelet 123 LAB MPV(LOINC) 6.6-10.5 fL MPV 9.8 Performed By: #### CBC, ADIFF, ANEU, PRO, MG, BMP, GFR #### [address] [address] .AUTO DIFF Collected: 03/09/2018 Status: F Source: [facility] 6:17 AM [facility] EMERGENCY DEPARTMENT REPOSITORY TYPE CODE TESTS RESULT OUT OF REFERENCE UNITS RANGE LAB KAMLA(LOINC) 50.0-75.0 % Neutrophil % 71.4 LAB LYM(LOINC) 20.0-40.0 % Low Lymphocyte % 14.1 LAB MON(LOINC) 2.0-13.0 % Monocyte % 9.8 LAB EO(LOINC) 0.0-6.0 % Eosinophil % 4.3 LAB BAS(LOINC) 0.0-2.5 % Basophil % 0.4 LAB ABLYM(LOIN 0.90-4.32 10 3/mcL C) Lymphocyte, 1.00 Absolute LAB REINA(LOINC 0.09-1.40 10 3/mcL ) Monocyte, 0.70 Absolute LAB AEOS(LOINC 0.00-0.65 10 3/mcL ) Eosinophil, 0.30 Absolute LAB ABAS(LOINC 0.00-0.27 10 3/mcL ) Basophil, 0.00 Absolute Performed By: #### CBC, ADIFF, ANEU, PRO, MG, BMP, GFR #### [address] [address] .NEUABS Collected: 03/09/2018 Status: F Source: [facility] 6:17 AM [facility] EMERGENCY DEPARTMENT REPOSITORY TYPE CODE TESTS RESULT OUT OF REFERENCE UNITS RANGE LAB ANEU(LOINC) 2.25-8.10 10 3/mcL Neutrophil, 5.00 Absolute Performed By: #### CBC, ADIFF, ANEU, PRO, MG, BMP, GFR #### [address] [address] PRO Collected: 03/09/2018 Status: F Source: [facility] 6:17 AM [facility] EMERGENCY DEPARTMENT REPOSITORY Order Comment: ordered secondary to warfarin order TYPE CODE TESTS RESULT OUT OF REFERENCE UNITS RANGE LAB PT(LOINC) 9.0-14.5 seconds High Protime 15.6 Result Comment: Effective 04/14/08, Protime results may be affected by some antibiotics (i.e. Ciprofloxacin, Azithromycin, Bactrim) which may potentiate the action of oral anticoagulants, with further increase in Protime/INR. LAB INR(LOINC) ratio PT International Ratio 1.3 Result Comment: The [employer] (CHEST, 1992, 102:312S-25S) recommended therapeutic range for oral anticoagulant therapy is: LOW RISK: Prophylaxis of venous thrombosis INR: 2.0-3.0 Treatment of pulmonary embolism 2.0-3.0 Prevention of systemic embolism 2.0-3.0 HIGH RISK: Mechanical prosthetic valves 2.5-3.5 Performed By: #### CBC, ADIFF, ANEU, PRO, MG, BMP, GFR #### [place] [address] MG Collected: 03/09/2018 Status: F Source: [facility] 6:17 AM [facility] EMERGENCY DEPARTMENT REPOSITORY TYPE CODE TESTS RESULT OUT OF REFERENCE UNITS RANGE LAB MG(LOINC) 1.6-2.4 mg/dL Magnesium Lvl 1.6 Performed By: #### CBC, ADIFF, ANEU, PRO, MG, BMP, GFR #### [address] [address] BMP Collected: 03/09/2018 Status: F Source: [facility] 6:17 AM [facility] EMERGENCY DEPARTMENT REPOSITORY TYPE CODE TESTS RESULT OUT OF REFERENCE UNITS RANGE LAB GLU(LOINC) 70-110 mg/dL Glucose Level 99 LAB NA(LOINC) 136-145 mEq/L Sodium Level 141 LAB K(LOINC) 3.5-5.0 mEq/L Potassium Level 4.3 LAB CL(LOINC) 98-110 mEq/L Chloride 110 LAB CO2(LOINC) 22-32 mEq/L Low CO2 21 LAB EBAL(LOINC 4.0-15.0 mEq/L ) Electrolyte Balance 10.0 LAB BUN(LOINC) 8.0-22.0 mg/dL BUN High 44.0 LAB CRE(LOINC) 0.50-1.20 mg/dL Creatinine High Lvl (s) 2.13 LAB BC(LOINC) 10.0-22.0 ratio BUN/Creatinine 20.7 Ratio LAB CA(LOINC) 8.4-10.1 mg/dL Calcium Lvl 8.5 Performed By: #### CBC, ADIFF, ANEU, PRO, MG, BMP, GFR #### [place] [address] .GFR Collected: 03/09/2018 Status: F Source: [facility] 6:17 AM [facility] REPOSITORY TYPE CODE TESTS RESULT OUT OF REFERENCE UNITS RANGE LAB GFRAA(LOINC ml/min/1.73 ) sqm GFR 29 [place] Result Comment: GFR Population mean for , Non- Americans Ages 20-29 = 116 mL/min/1.73 sq.m. Ages 30-39 = 107 mL/min/1.73 sq.m. Ages 40-49 = 99 mL/min/1.73 sq.m. Ages 50-59 = 93 mL/min/1.73 sq.m. Ages 60-69 = 85 mL/min/1.73 sq.m. Ages 70+ = 75 mL/min/1.73 sq.m. Chronic Kidney Disease: Less than 60 mL/min/1.73 square meters End Stage Renal Disease: Less than 15 mL/min/1.73 square meters LAB GFRNO(LOINC) ml/min/1.73sqm GFR Non- 24 Result Comment: GFR Population mean for , Non- Americans Ages 20-29 = 116 mL/min/1.73 sq.m. Ages 30-39 = 107 mL/min/1.73 sq.m. Ages 40-49 = 99 mL/min/1.73 sq.m. Ages 50-59 = 93 mL/min/1.73 sq.m. Ages 60-69 = 85 mL/min/1.73 sq.m. Ages 70+ = 75 mL/min/1.73 sq.m. Chronic Kidney Disease: Less than 60 mL/min/1.73 square meters End Stage Renal Disease: Less than 15 mL/min/1.73 square meters Performed By: #### CBC, ADIFF, ANEU, PRO, MG, BMP, GFR #### [address] [address] PLT Collected: 03/09/2018 Status: F Source: [facility] 2:19 AM [facility] EMERGENCY DEPARTMENT REPOSITORY TYPE CODE TESTS RESULT OUT OF REFERENCE UNITS RANGE LAB PLT(LOINC) 150-450 10 3/mcL Low Platelet 146 Performed By: #### PLT, FIB, APTT #### [place] [address] FIB Collected: 03/09/2018 Status: F Source: [facility] 2:19 AM [facility] EMERGENC[facility] DEPARTMENT REPOSITORY TYPE CODE TESTS RESULT OUT OF REFERENCE UNITS RANGE LAB FIB(LOINC) 250-550 mg/dL High Fibrinogen >700 Performed By: #### PLT, FIB, APTT #### [place] [address] APTT Collected: 03/09/2018 Status: F Source: [facility] 2:19 AM [facility] EMERGENC[facility] DEPARTMENT REPOSITORY TYPE CODE TESTS RESULT OUT OF REFERENCE UNITS RANGE LAB PDOSE(LOIN C) Heparin dose Heparin IV (APTT) LAB APTT0(LOIN 25.0-35.0 seconds C) High APTT 71.2 Result Comment: For Heparin anticoagulation therapy, the recommended therapeutic range is: 54-77 seconds (APTT Correlation with Anti-Xa therapeutic range of 0.3-0.7 units/ml). PLEASE REFERENCE THE PHARMACY PROTOCOL FOR DOSING. Performed By: #### PLT, FIB, APTT #### [place] [address] APTT Collected: 03/08/2018 Status: F Source: [facility] 7:35 PM [facility] REPOSITORY TYPE CODE TESTS RESULT OUT OF REFERENCE UNITS RANGE LAB PDOSE(LOIN C) Heparin dose Heparin IV (APTT) LAB APTT0(LOIN 25.0-35.0 seconds C) High APTT 75.5 Result Comment: For Heparin anticoagulation therapy, the recommended therapeutic range is: 54-77 seconds (APTT Correlation with Anti-Xa therapeutic range of 0.3-0.7 units/ml). PLEASE REFERENCE THE PHARMACY PROTOCOL FOR DOSING. Performed By: #### APTT #### [place] [address] PLT Collected: 03/08/2018 Status: F Source: [facility] 6:45 AM [facility] REPOSITORY TYPE CODE TESTS RESULT OUT OF REFERENCE UNITS RANGE LAB PLT(LOINC) 150-450 10 3/mcL Low Platelet 111 Performed By: #### PLT, FIB, APTT, PRO #### [place] [address] FIB Collected: 03/08/2018 Status: F Source: [facility] 6:45 AM [facility] REPOSITORY TYPE CODE TESTS RESULT OUT OF REFERENCE UNITS RANGE LAB FIB(LOINC) 250-550 mg/dL High Fibrinogen >700 Performed By: #### PLT, FIB, APTT, PRO #### [place] [address] APTT Collected: 03/08/2018 Status: F Source: [facility] 6:45 AM [facility] REPOSITORY TYPE CODE TESTS RESULT OUT OF REFERENCE UNITS RANGE LAB PDOSE(LOIN C) Heparin dose Heparin IV (APTT) LAB APTT0(LOIN 25.0-35.0 seconds C) High APTT 53.1 Result Comment: For Heparin anticoagulation therapy, the recommended therapeutic range is: 54-77 seconds (APTT Correlation with Anti-Xa therapeutic range of 0.3-0.7 units/ml). PLEASE REFERENCE THE PHARMACY PROTOCOL FOR DOSING. Performed By: #### PLT, FIB, APTT, PRO #### [place] [address] PRO Collected: 03/08/2018 Status: F Source: [facility] 6:45 AM [facility] DEPARTMENT REPOSITORY TYPE CODE TESTS RESULT OUT OF REFERENCE UNITS RANGE LAB PT(LOINC) 9.0-14.5 seconds Protime 14.1 Result Comment: Effective 04/14/08, Protime results may be affected by some antibiotics (i.e. Ciprofloxacin, Azithromycin, Bactrim) which may potentiate the action of oral anticoagulants, with further increases in Protime/INR. LAB INR(LOINC) ratio PT International Ratio 1.2 Result Comment: [employer] (CHEST, 1992, 102:312S-25S) recommended therapeutic range for oral anticoagulant therapy is: LOW RISK: Prophylaxis of venous thrombosis INR: 2.0-3.0 Treatment of pulmonary embolism 2.0-3.0 Prevention of systemic embolism 2.0-3.0 HIGH RISK: Mechanical prosthetic valves 2.5-3.5 Performed By: #### PLT, FIB, APTT, PRO #### [address] [address] BMP Collected: 03/08/2018 Status: F Source: [facility] 6:45 AM [facility] EMERGENCY DEPARTMENT REPOSITORY TYPE CODE TESTS RESULT OUT OF REFERENCE UNITS RANGE LAB GLU(LOINC) 70-110 mg/dL Glucose High Level 152 LAB NA(LOINC) 136-145 mEq/L Sodium Level 139 LAB K(LOINC) 3.5-5.0 mEq/L Potassium Level 4.4 LAB CL(LOINC) 98-110 mEq/L Chloride 109 LAB CO2(LOINC) 22-32 mEq/L CO2 22 LAB EBAL(LOINC 4.0-15.0 mEq/L ) Electrolyte Balance 8.0 LAB BUN(LOINC) 8.0-22.0 mg/dL BUN High 52.0 LAB CRE(LOINC) 0.50-1.20 mg/dL Creatinine High Lvl (s) 2.07 LAB BC(LOINC) 10.0-22.0 ratio High BUN/Creatinine 25.1 Ratio LAB CA(LOINC) 8.4-10.1 mg/dL Calcium Lvl 8.4 Performed By: #### BMP, MG, GFR, CBC, ADIFF, ANEU #### [place] [address] MG Collected: 03/08/2018 Status: F Source: [facility] 6:45 AM [facility] EMERGENCY DEPARTMENT REPOSITORY TYPE CODE TESTS RESULT OUT OF REFERENCE UNITS RANGE LAB MG(LOINC) 1.6-2.4 mg/dL Magnesium Lvl 1.9 Performed By: #### BMP, MG, GFR, CBC, ADIFF, ANEU #### [address] [address] .GFR Collected: 03/08/2018 Status: F Source: [facility] 6:45 AM [facility] EMERGENCY DEPARTMENT REPOSITORY TYPE CODE TESTS RESULT OUT OF REFERENCE UNITS RANGE LAB GFRAA(LOINC ml/min/1.73 ) sqm GFR 30 [place] Result Comment: GFR Population mean for , Non- Americans Ages 20-29 = 116 mL/min/1.73 sq.m. Ages 30-39 = 107 mL/min/1.73 sq.m. Ages 40-49 = 99 mL/min/1.73 sq.m. Ages 50-59 = 93 mL/min/1.73 sq.m. Ages 60-69 = 85 mL/min/1.73 sq.m. Ages 70+ = 75 mL/min/1.73 sq.m. Chronic Kidney Disease: Less than 60 mL/min/1.73 square meters End Stage Renal Disease: Less than 15 mL/min/1.73 square meters LAB GFRNO(LOINC) ml/min/1.73sqm GFR Non- 25 Result Comment: GFR Population mean for , Non- Americans Ages 20-29 = 116 mL/min/1.73 sq.m. Ages 30-39 = 107 mL/min/1.73 sq.m. Ages 40-49 = 99 mL/min/1.73 sq.m. Ages 50-59 = 93 mL/min/1.73 sq.m. Ages 60-69 = 85 mL/min/1.73 sq.m. Ages 70+ = 75 mL/min/1.73 sq.m. Chronic Kidney Disease: Less than 60 mL/min/1.73 square meters End Stage Renal Disease: Less than 15 mL/min/1.73 square meters Performed By: #### BMP, MG, GFR, CBC, ADIFF, ANEU #### [place] [address] CBC Collected: 03/08/2018 Status: F Source: [facility] 6:45 AM [facility] REPOSITORY Order Comment: Please recollect; specimen clotted. 03/08/2018 07:33:30 EDT. TYPE CODE TESTS RESULT OUT OF REFERENCE UNITS RANGE LAB WBC(LOINC) 4.50-10.80 10 3/mcL WBC 7.60 LAB RBCCT(LOINC 4.10-5.30 10 6/mcL ) Low RBC 2.52 LAB HGB(LOINC) 12.0-16.0 G/dL Low Hgb 8.3 LAB HCT(LOINC) 34.0-46.0 % Low Hct 24.2 LAB MCV(LOINC) 80.0-99.0 fL MCV 96.0 LAB MCH(LOINC) 27.0-33.0 pg MCH 33.0 LAB MCHC(LOINC) 32.0-36.0 G/dL MCHC 34.3 LAB RDW(LOINC) 11.5-15.5 % RDW 14.0 LAB PLT(LOINC) 150-450 10 3/mcL Low Platelet 116 LAB MPV(LOINC) 6.6-10.5 fL High MPV 11.6 Performed By: #### BMP, MG, GFR, CBC, ADIFF, ANEU #### [address] [address] .AUTO DIFF Collected: 03/08/2018 Status: F Source: [facility] 6:45 AM [facility] EMERGENCY DEPARTMENT REPOSITORY TYPE CODE TESTS RESULT OUT OF REFERENCE UNITS RANGE LAB KAMLA(LOINC) 50.0-75.0 % Neutrophil % 73.7 LAB LYM(LOINC) 20.0-40.0 % Low Lymphocyte % 13.1 LAB MON(LOINC) 2.0-13.0 % Monocyte % 8.6 LAB EO(LOINC) 0.0-6.0 % Eosinophil % 4.1 LAB BAS(LOINC) 0.0-2.5 % Basophil % 0.5 LAB ABLYM(LOIN 0.90-4.32 10 3/mcL C) Lymphocyte, 1.00 Absolute LAB REINA(LOINC 0.09-1.40 10 3/mcL ) Monocyte, 0.70 Absolute LAB AEOS(LOINC 0.00-0.65 10 3/mcL ) Eosinophil, 0.30 Absolute LAB ABAS(LOINC 0.00-0.27 10 3/mcL ) Basophil, 0.00 Absolute Performed By: #### BMP, MG, GFR, CBC, ADIFF, ANEU #### [address] [address] .NEUABS Collected: 03/08/2018 Status: F Source: [facility] 6:45 AM [facility] EMERGENCY DEPARTMENT REPOSITORY TYPE CODE TESTS RESULT OUT OF REFERENCE UNITS RANGE LAB ANEU(LOINC) 2.25-8.10 10 3/mcL Neutrophil, 5.60 Absolute Performed By: #### BMP, MG, GFR, CBC, ADIFF, ANEU #### [address] [address] DIG Collected: 03/08/2018 Status: F Source: [facility] 6:45 AM [facility] EMERGENCY DEPARTMENT REPOSITORY TYPE CODE TESTS RESULT OUT OF REFERENCE UNITS RANGE LAB LD005(LOINC ) LDose Digoxin: See eMAR LAB DIGO(LOINC) 0.8-2.0 ng/mL Digoxin Level 1.3 Result Comment: For patients with CHF Normal Therapeutic range = 0.5 - 0.9 ng/mL Performed By: #### DIG #### [place] [address] APTT Collected: 03/07/2018 Status: F Source: [facility] 11:16 AM [facility] EMERGENCY DEPARTMENT REPOSITORY TYPE CODE TESTS RESULT OUT OF REFERENCE UNITS RANGE LAB PDOSE(LOIN C) Heparin dose Heparin IV (APTT) LAB APTT0(LOIN 25.0-35.0 seconds C) High APTT 72.6 Result Comment: For Heparin anticoagulation therapy, the recommended therapeutic range is: 54-77 seconds (APTT Correlation with Anti-Xa therapeutic range of 0.3-0.7 units/ml). PLEASE REFERENCE THE PHARMACY PROTOCOL FOR DOSING. Performed By: #### APTT #### [address] [address] BMP Collected: 03/07/2018 Status: F Source: [facility] 4:05 AM [facility] EMERGENCY DEPARTMENT REPOSITORY TYPE CODE TESTS RESULT OUT OF REFERENCE UNITS RANGE LAB GLU(LOINC) 70-110 mg/dL Glucose High Level 128 LAB NA(LOINC) 136-145 mEq/L Sodium Level 137 LAB K(LOINC) 3.5-5.0 mEq/L Potassium Level 4.1 LAB CL(LOINC) 98-110 mEq/L Chloride 107 LAB CO2(LOINC) 22-32 mEq/L CO2 26 LAB EBAL(LOINC 4.0-15.0 mEq/L ) Electrolyte Balance 4.0 LAB BUN(LOINC) 8.0-22.0 mg/dL BUN High 55.0 LAB CRE(LOINC) 0.50-1.20 mg/dL Creatinine High Lvl (s) 2.22 LAB BC(LOINC) 10.0-22.0 ratio High BUN/Creatinine 24.8 Ratio LAB CA(LOINC) 8.4-10.1 mg/dL Low Calcium Lvl 7.9 Performed By: #### BMP, MG, GFR, CBC, ADIFF, ANEU #### [address] [address] MG Collected: 03/07/2018 Status: F Source: [facility] 4:05 AM [facility] EMERGENCY DEPARTMENT REPOSITORY TYPE CODE TESTS RESULT OUT OF REFERENCE UNITS RANGE LAB MG(LOINC) 1.6-2.4 mg/dL Magnesium Lvl 1.9 Performed By: #### BMP, MG, GFR, CBC, ADIFF, ANEU #### [address] [address] .GFR Collected: 03/07/2018 Status: F Source: [facility] 4:05 AM [facility] EMERGENCY DEPARTMENT REPOSITORY TYPE CODE TESTS RESULT OUT OF REFERENCE UNITS RANGE LAB GFRAA(LOINC ml/min/1.73 ) sqm GFR 28 [place] Result Comment: GFR Population mean for , Non- Americans Ages 20-29 = 116 mL/min/1.73 sq.m. Ages 30-39 = 107 mL/min/1.73 sq.m. Ages 40-49 = 99 mL/min/1.73 sq.m. Ages 50-59 = 93 mL/min/1.73 sq.m. Ages 60-69 = 85 mL/min/1.73 sq.m. Ages 70+ = 75 mL/min/1.73 sq.m. Chronic Kidney Disease: Less than 60 mL/min/1.73 square meters End Stage Renal Disease: Less than 15 mL/min/1.73 square meters LAB GFRNO(LOINC) ml/min/1.73sqm GFR Non- 23 Result Comment: GFR Population mean for , Non- Americans Ages 20-29 = 116 mL/min/1.73 sq.m. Ages 30-39 = 107 mL/min/1.73 sq.m. Ages 40-49 = 99 mL/min/1.73 sq.m. Ages 50-59 = 93 mL/min/1.73 sq.m. Ages 60-69 = 85 mL/min/1.73 sq.m. Ages 70+ = 75 mL/min/1.73 sq.m. Chronic Kidney Disease: Less than 60 mL/min/1.73 square meters End Stage Renal Disease: Less than 15 mL/min/1.73 square meters Performed By: #### BMP, MG, GFR, CBC, ADIFF, ANEU #### [address] [address] CBC Collected: 03/07/2018 Status: F Source: [facility] 4:05 AM [facility] EMERGENCY DEPARTMENT REPOSITORY TYPE CODE TESTS RESULT OUT OF REFERENCE UNITS RANGE LAB WBC(LOINC) 4.50-10.80 10 3/mcL WBC 7.20 LAB RBCCT(LOINC 4.10-5.30 10 6/mcL ) Low RBC 2.50 LAB HGB(LOINC) 12.0-16.0 G/dL Low Hgb 8.2 LAB HCT(LOINC) 34.0-46.0 % Low Hct 23.8 LAB MCV(LOINC) 80.0-99.0 fL MCV 95.3 LAB MCH(LOINC) 27.0-33.0 pg High MCH 33.1 LAB MCHC(LOINC) 32.0-36.0 G/dL MCHC 34.7 LAB RDW(LOINC) 11.5-15.5 % RDW 13.7 LAB PLT(LOINC) 150-450 10 3/mcL Low Platelet 91 LAB MPV(LOINC) 6.6-10.5 fL MPV 10.4 Performed By: #### BMP, MG, GFR, CBC, ADIFF, ANEU #### [address] [address] .AUTO DIFF Collected: 03/07/2018 Status: F Source: [facility] 4:05 [facility] REPOSITORY TYPE CODE TESTS RESULT OUT OF REFERENCE UNITS RANGE LAB KAMLA(LOINC) 50.0-75.0 % High Neutrophil % 75.2 LAB LYM(LOINC) 20.0-40.0 % Low Lymphocyte % 11.4 LAB MON(LOINC) 2.0-13.0 % Monocyte % 9.3 LAB EO(LOINC) 0.0-6.0 % Eosinophil % 3.5 LAB BAS(LOINC) 0.0-2.5 % Basophil % 0.6 LAB ABLYM(LOIN 0.90-4.32 10 3/mcL C) Low Lymphocyte, 0.80 Absolute LAB REINA(LOINC 0.09-1.40 10 3/mcL ) Monocyte, 0.70 Absolute LAB AEOS(LOINC 0.00-0.65 10 3/mcL ) Eosinophil, 0.30 Absolute LAB ABAS(LOINC 0.00-0.27 10 3/mcL ) Basophil, 0.00 Absolute Performed By: #### BMP, MG, GFR, CBC, ADIFF, ANEU #### [place] [address] .NEUABS Collected: 03/07/2018 Status: F Source: [facility] 4:05 AM [facility] EMERGENCY DEPARTMENT REPOSITORY TYPE CODE TESTS RESULT OUT OF REFERENCE UNITS RANGE LAB ANEU(LOINC) 2.25-8.10 10 3/mcL Neutrophil, 5.40 Absolute Performed By: #### BMP, MG, GFR, CBC, ADIFF, ANEU #### [place] [address] PLT Collected: 03/07/2018 Status: F Source: [facility] 4:05 AM [facility] EMERGENCY DEPARTMENT REPOSITORY TYPE CODE TESTS RESULT OUT OF REFERENCE UNITS RANGE LAB PLT(LOINC) 150-450 10 3/mcL Low Platelet 91 Performed By: #### PLT, APTT, PRO, FIB #### [place] [address] APTT Collected: 03/07/2018 Status: F Source: [facility] 4:05 AM [facility] EMERGENCY DEPARTMENT REPOSITORY TYPE CODE TESTS RESULT OUT OF REFERENCE UNITS RANGE LAB PDOSE(LOIN C) Heparin dose Heparin IV (APTT) LAB APTT0(LOIN 25.0-35.0 seconds C) High APTT 68.2 Result Comment: For Heparin anticoagulation therapy, the recommended therapeutic range is: 54-77 seconds (APTT Correlation with Anti-Xa therapeutic range of 0.3-0.7 units/ml). PLEASE REFERENCE THE PHARMACY PROTOCOL FOR DOSING. Performed By: #### PLT, APTT, PRO, FIB #### [place] [address] PRO Collected: 03/07/2018 Status: F Source: [facility] 4:05 AM [facility] EMERGENCY DEPARTMENT REPOSITORY TYPE CODE TESTS RESULT OUT OF REFERENCE UNITS RANGE LAB PT(LOINC) 9.0-14.5 seconds Protime 14.3 Result Comment: Effective 04/14/08, Protime results may be affected by some antibiotics (i.e. Ciprofloxacin, Azithromycin, Bactrim) which may potentiate the action of oral anticoagulants, with further increases in Protime/INR. LAB INR(LOINC) ratio PT International Ratio 1.2 Result Comment: [employer] (CHEST, 1992, 102:312S-25S) recommended therapeutic range for oral anticoagulant therapy is: LOW RISK: Prophylaxis of venous thrombosis INR: 2.0-3.0 Treatment of pulmonary embolism 2.0-3.0 Prevention of systemic embolism 2.0-3.0 HIGH RISK: Mechanical prosthetic valves 2.5-3.5 Performed By: #### PLT, APTT, PRO, FIB #### [place] [address] FIB Collected: 03/07/2018 Status: F Source: [facility] 4:05 AM [facility] EMERGENCY DEPARTMENT REPOSITORY TYPE CODE TESTS RESULT OUT OF REFERENCE UNITS RANGE LAB FIB(LOINC) 250-550 mg/dL High Fibrinogen >700 Performed By: #### PLT, APTT, PRO, FIB #### [place] [address] DIG Collected: 03/07/2018 Status: F Source: [facility] 4:05 AM [facility] EMERGENCY DEPARTMENT REPOSITORY TYPE CODE TESTS RESULT OUT OF REFERENCE UNITS RANGE LAB LD005(LOINC ) LDose Digoxin: See eMAR LAB DIGO(LOINC) 0.8-2.0 ng/mL Digoxin Level 1.4 Result Comment: For patients with CHF Normal Therapeutic range = 0.5 - 0.9 ng/mL Performed By: #### DIG #### [place] [address] FIB Collected: 03/06/2018 Status: F Source: [facility] 9:45 PM [facility] EMERGENCY DEPARTMENT REPOSITORY TYPE CODE TESTS RESULT OUT OF REFERENCE UNITS RANGE LAB FIB(LOINC) 250-550 mg/dL High Fibrinogen >700 Performed By: #### FIB #### [place] [address] APTT Collected: 03/06/2018 Status: F Source: [facility] 9:45 PM [facility] EMERGENCY DEPARTMENT REPOSITORY TYPE CODE TESTS RESULT OUT OF REFERENCE UNITS RANGE LAB PDOSE(LOIN C) Heparin dose Heparin IV (APTT) LAB APTT0(LOIN 25.0-35.0 seconds C) High APTT 52.8 Result Comment: For Heparin anticoagulation therapy, the recommended therapeutic range is: 54-77 seconds (APTT Correlation with Anti-Xa therapeutic range of 0.3-0.7 units/ml). PLEASE REFERENCE THE PHARMACY PROTOCOL FOR DOSING. Performed By: #### APTT #### [address] [address] K Collected: 03/06/2018 Status: F Source: [facility] 3:31 [facility] REPOSITORY TYPE CODE TESTS RESULT OUT OF REFERENCE UNITS RANGE LAB K(LOINC) 3.5-5.0 mEq/L Potassium Level 4.3 Performed By: #### K #### [place] [address] APTT Collected: 03/06/2018 Status: F Source: [facility] 3:[address] [place] [address] REPOSITORY TYPE CODE TESTS RESULT OUT OF REFERENCE UNITS RANGE LAB PDOSE(LOIN C) Heparin dose Heparin IV (APTT) LAB APTT0(LOIN 25.0-35.0 seconds C) High APTT 68.4 Result Comment: For Heparin anticoagulation therapy, the recommended therapeutic range is: 54-77 seconds (APTT Correlation with Anti-Xa therapeutic range of 0.3-0.7 units/ml). PLEASE REFERENCE THE PHARMACY PROTOCOL FOR DOSING. Performed By: #### APTT #### [place] [address] PRO Collected: 03/06/2018 Status: F Source: [facility] 3:[address] [place] [address] REPOSITORY Order Comment: ordered secondary to warfarin order TYPE CODE TESTS RESULT OUT OF REFERENCE UNITS RANGE LAB PT(LOINC) 9.0-14.5 seconds Protime 14.5 Result Comment: Effective 04/14/08, Protime results may be affected by some antibiotics (i.e. Ciprofloxacin, Azithromycin, Bactrim) which may potentiate the action of oral anticoagulants, with further increases in Protime/INR. LAB INR(LOINC) ratio PT International Ratio 1.2 Result Comment: [employer] (CHEST, 1992, 102:312S-25S) recommended therapeutic range for oral anticoagulant therapy is: LOW RISK: Prophylaxis of venous thrombosis INR: 2.0-3.0 Treatment of pulmonary embolism 2.0-3.0 Prevention of systemic embolism 2.0-3.0 HIGH RISK: Mechanical prosthetic valves 2.5-3.5 Performed By: #### PRO #### [place] [address] K Collected: 03/06/2018 Status: F Source: [facility] 12:22 PM [facility] EMERGENCY DEPARTMENT REPOSITORY TYPE CODE TESTS RESULT OUT OF REFERENCE UNITS RANGE LAB K(LOINC) 3.5-5.0 mEq/L Potassium Level 4.4 Performed By: #### K #### [place] [address] K Collected: 03/06/2018 Status: F Source: [facility] 8:36 AM [facility] EMERGENCY DEPARTMENT REPOSITORY TYPE CODE TESTS RESULT OUT OF REFERENCE UNITS RANGE LAB K(LOINC) 3.5-5.0 mEq/L Potassium Level 4.3 Performed By: #### K #### [place] [address] APTT Collected: 03/06/2018 Status: F Source: [facility] 8:36 AM [facility] EMERGENCY DEPARTMENT REPOSITORY TYPE CODE TESTS RESULT OUT OF REFERENCE UNITS RANGE LAB PDOSE(LOIN C) Heparin dose Heparin IV (APTT) LAB APTT0(LOIN 25.0-35.0 seconds C) High APTT 78.7 Result Comment: For Heparin anticoagulation therapy, the recommended therapeutic range is: 54-77 seconds (APTT Correlation with Anti-Xa therapeutic range of 0.3-0.7 units/ml). PLEASE REFERENCE THE PHARMACY PROTOCOL FOR DOSING. Performed By: #### APTT #### [place] [address] CBC Collected: 03/06/2018 Status: F Source: [facility] 3:31 AM [facility] EMERGENCY DEPARTMENT REPOSITORY TYPE CODE TESTS RESULT OUT OF REFERENCE UNITS RANGE LAB WBC(LOINC) 4.50-10.80 10 3/mcL WBC 8.40 LAB RBCCT(LOINC 4.10-5.30 10 6/mcL ) Low RBC 2.77 LAB HGB(LOINC) 12.0-16.0 G/dL Low Hgb 9.1 LAB HCT(LOINC) 34.0-46.0 % Low Hct 26.5 LAB MCV(LOINC) 80.0-99.0 fL MCV 95.7 LAB MCH(LOINC) 27.0-33.0 pg MCH 33.0 LAB MCHC(LOINC) 32.0-36.0 G/dL MCHC 34.4 LAB RDW(LOINC) 11.5-15.5 % RDW 14.0 LAB PLT(LOINC) 150-450 10 3/mcL Low Platelet 95 LAB MPV(LOINC) 6.6-10.5 fL High MPV 10.6 Performed By: #### CBC, ADIFF, ANEU, BMP, MG, GFR #### [address] [address] .AUTO DIFF Collected: 03/06/2018 Status: F Source: [facility] 3:31 AM [facility] EMERGENCY DEPARTMENT REPOSITORY TYPE CODE TESTS RESULT OUT OF REFERENCE UNITS RANGE LAB KAMLA(LOINC) 50.0-75.0 % High Neutrophil % 78.5 LAB LYM(LOINC) 20.0-40.0 % Low Lymphocyte % 11.8 LAB MON(LOINC) 2.0-13.0 % Monocyte % 7.0 LAB EO(LOINC) 0.0-6.0 % Eosinophil % 2.2 LAB BAS(LOINC) 0.0-2.5 % Basophil % 0.5 LAB ABLYM(LOIN 0.90-4.32 10 3/mcL C) Lymphocyte, 1.00 Absolute LAB REINA(LOINC 0.09-1.40 10 3/mcL ) Monocyte, 0.60 Absolute LAB AEOS(LOINC 0.00-0.65 10 3/mcL ) Eosinophil, 0.20 Absolute LAB ABAS(LOINC 0.00-0.27 10 3/mcL ) Basophil, 0.00 Absolute Performed By: #### CBC, ADIFF, ANEU, BMP, MG, GFR #### [address] [address] .NEUABS Collected: 03/06/2018 Status: F Source: [facility] 3:31 AM [facility] EMERGENCY DEPARTMENT REPOSITORY TYPE CODE TESTS RESULT OUT OF REFERENCE UNITS RANGE LAB ANEU(LOINC) 2.25-8.10 10 3/mcL Neutrophil, 6.60 Absolute Performed By: #### CBC, ADIFF, ANEU, BMP, MG, GFR #### [address] [address] BMP Collected: 03/06/2018 Status: F Source: [facility] 3:31 AM [facility] EMERGENCY DEPARTMENT REPOSITORY TYPE CODE TESTS RESULT OUT OF REFERENCE UNITS RANGE LAB GLU(LOINC) 70-110 mg/dL Glucose High Level 173 LAB NA(LOINC) 136-145 mEq/L Sodium Level 138 LAB K(LOINC) 3.5-5.0 mEq/L Potassium Level 4.3 LAB CL(LOINC) 98-110 mEq/L Chloride 105 LAB CO2(LOINC) 22-32 mEq/L CO2 29 LAB EBAL(LOINC 4.0-15.0 mEq/L ) Electrolyte Balance 4.0 LAB BUN(LOINC) 8.0-22.0 mg/dL BUN High 66.0 LAB CRE(LOINC) 0.50-1.20 mg/dL Creatinine High Lvl (s) 2.58 LAB BC(LOINC) 10.0-22.0 ratio High BUN/Creatinine 25.6 Ratio LAB CA(LOINC) 8.4-10.1 mg/dL Low Calcium Lvl 7.6 Performed By: #### CBC, ADIFF, ANEU, BMP, MG, GFR #### [address] [address] MG Collected: 03/06/2018 Status: F Source: [facility] 3:31 AM [facility] EMERGENCY DEPARTMENT REPOSITORY TYPE CODE TESTS RESULT OUT OF REFERENCE UNITS RANGE LAB MG(LOINC) 1.6-2.4 mg/dL Magnesium Lvl 2.1 Performed By: #### CBC, ADIFF, ANEU, BMP, MG, GFR #### [address] [address] .GFR Collected: 03/06/2018 Status: F Source: [facility] 3:31 AM [facility] EMERGENCY DEPARTMENT REPOSITORY TYPE CODE TESTS RESULT OUT OF REFERENCE UNITS RANGE LAB GFRAA(LOINC ml/min/1.73 ) sqm GFR 23 [place] Result Comment: GFR Population mean for , Non- Americans Ages 20-29 = 116 mL/min/1.73 sq.m. Ages 30-39 = 107 mL/min/1.73 sq.m. Ages 40-49 = 99 mL/min/1.73 sq.m. Ages 50-59 = 93 mL/min/1.73 sq.m. Ages 60-69 = 85 mL/min/1.73 sq.m. Ages 70+ = 75 mL/min/1.73 sq.m. Chronic Kidney Disease: Less than 60 mL/min/1.73 square meters End Stage Renal Disease: Less than 15 mL/min/1.73 square meters LAB GFRNO(LOINC) ml/min/1.73sqm GFR Non- 19 Result Comment: GFR Population mean for , Non- Americans Ages 20-29 = 116 mL/min/1.73 sq.m. Ages 30-39 = 107 mL/min/1.73 sq.m. Ages 40-49 = 99 mL/min/1.73 sq.m. Ages 50-59 = 93 mL/min/1.73 sq.m. Ages 60-69 = 85 mL/min/1.73 sq.m. Ages 70+ = 75 mL/min/1.73 sq.m. Chronic Kidney Disease: Less than 60 mL/min/1.73 square meters End Stage Renal Disease: Less than 15 mL/min/1.73 square meters Performed By: #### CBC, ADIFF, ANEU, BMP, MG, GFR #### [place] [address] APTT Collected: 03/06/2018 Status: F Source: [facility] 3:31 AM [facility] EMERGENCY DEPARTMENT REPOSITORY TYPE CODE TESTS RESULT OUT OF REFERENCE UNITS RANGE LAB PDOSE(LOIN C) Heparin dose Heparin IV (APTT) LAB APTT0(LOIN 25.0-35.0 seconds C) High APTT 119.8 Result Comment: For Heparin anticoagulation therapy, the recommended therapeutic range is: 54-77 seconds (APTT Correlation with Anti-Xa therapeutic range of 0.3-0.7 units/ml). PLEASE REFERENCE THE PHARMACY PROTOCOL FOR DOSING. Performed By: #### APTT #### [address] [address] K Collected: 03/06/2018 Status: F Source: [facility] 12:51 AM [facility] EMERGENCY DEPARTMENT REPOSITORY TYPE CODE TESTS RESULT OUT OF REFERENCE UNITS RANGE LAB K(LOINC) 3.5-5.0 mEq/L Potassium Level 4.3 Performed By: #### K #### [address] [address] K Collected: 03/05/2018 Status: F Source: [facility] 8:55 PM [facility] EMERGENCY DEPARTMENT REPOSITORY TYPE CODE TESTS RESULT OUT OF REFERENCE UNITS RANGE LAB K(LOINC) 3.5-5.0 mEq/L Potassium Level 5.0 Performed By: #### K #### [address] [address] APTT Collected: 03/05/2018 Status: F Source: [facility] 8:55 PM [facility] EMERGENCY DEPARTMENT REPOSITORY TYPE CODE TESTS RESULT OUT OF RANGE REFERENCE UNITS LAB PDOSE(LOIN C) Heparin dose Heparin IV (APTT) LAB APTT0(LOIN 25.0-35.0 seconds C) Abnormal APTT 126.5 Alert Result Comment: For Heparin anticoagulation therapy, the recommended therapeutic range is: 54-77 seconds (APTT Correlation with Anti-Xa therapeutic range of 0.3-0.7 units/ml). PLEASE REFERENCE THE PHARMACY PROTOCOL FOR DOSING. Performed By: #### APTT #### [place] [address] K Collected: 03/05/2018 Status: F Source: [facility] 5:24 PM [facility] EMERGENCY DEPARTMENT REPOSITORY TYPE CODE TESTS RESULT OUT OF REFERENCE UNITS RANGE LAB K(LOINC) 3.5-5.0 mEq/L Potassium Level 4.7 Performed By: #### K #### [address] [address] CBC Collected: 03/05/2018 Status: F Source: [facility] 11:36 AM [facility] EMERGENCY DEPARTMENT REPOSITORY TYPE CODE TESTS RESULT OUT OF REFERENCE UNITS RANGE LAB WBC(LOINC) 4.50-10.80 10 3/mcL WBC 7.10 LAB RBCCT(LOINC 4.10-5.30 10 6/mcL ) Low RBC 3.01 LAB HGB(LOINC) 12.0-16.0 G/dL Low Hgb 9.8 LAB HCT(LOINC) 34.0-46.0 % Low Hct 28.9 LAB MCV(LOINC) 80.0-99.0 fL MCV 96.0 LAB MCH(LOINC) 27.0-33.0 pg MCH 32.5 LAB MCHC(LOINC) 32.0-36.0 G/dL MCHC 33.9 LAB RDW(LOINC) 11.5-15.5 % RDW 13.8 LAB PLT(LOINC) 150-450 10 3/mcL Low Platelet 108 LAB MPV(LOINC) 6.6-10.5 fL High MPV 10.7 Performed By: #### CBC, ADIFF, ANEU, APTT #### [place] [id number] .AUTO DIFF Collected: 03/05/2018 Status: F Source: [facility] 11:36 AM [facility] EMERGENCY DEPARTMENT REPOSITORY TYPE CODE TESTS RESULT OUT OF REFERENCE UNITS RANGE LAB KAMLA(LOINC) 50.0-75.0 % High Neutrophil % 80.2 LAB LYM(LOINC) 20.0-40.0 % Low Lymphocyte % 9.8 LAB MON(LOINC) 2.0-13.0 % Monocyte % 8.0 LAB EO(LOINC) 0.0-6.0 % Eosinophil % 1.5 LAB BAS(LOINC) 0.0-2.5 % Basophil % 0.5 LAB ABLYM(LOIN 0.90-4.32 10 3/mcL C) Low Lymphocyte, 0.70 Absolute LAB REINA(LOINC 0.09-1.40 10 3/mcL ) Monocyte, 0.60 Absolute LAB AEOS(LOINC 0.00-0.65 10 3/mcL ) Eosinophil, 0.10 Absolute LAB ABAS(LOINC 0.00-0.27 10 3/mcL ) Basophil, 0.00 Absolute Performed By: #### CBC, ADIFF, ANEU, APTT #### [place] [address] .NEUABS Collected: 03/05/2018 Status: F Source: [facility] 11:36 AM [facility] EMERGENCY DEPARTMENT REPOSITORY TYPE CODE TESTS RESULT OUT OF REFERENCE UNITS RANGE LAB ANEU(LOINC) 2.25-8.10 10 3/mcL Neutrophil, 5.70 Absolute Performed By: #### CBC, ADIFF, ANEU, APTT #### [place] [address] APTT Collected: 03/05/2018 Status: F Source: [facility] 11:36 AM [facility] EMERGENCY DEPARTMENT REPOSITORY TYPE CODE TESTS RESULT OUT OF REFERENCE UNITS RANGE LAB PDOSE(LOIN C) Heparin dose Heparin SubQ (APTT) LAB APTT0(LOIN 25.0-35.0 seconds C) APTT 28.0 Result Comment: For Heparin anticoagulation therapy, the recommended therapeutic range is: 54-77 seconds (APTT Correlation with Anti-Xa therapeutic range of 0.3-0.7 units/ml). PLEASE REFERENCE THE PHARMACY PROTOCOL FOR DOSING. Performed By: #### CBC, ADIFF, ANEU, APTT #### [place] [address] K Collected: 03/05/2018 Status: F Source: [facility] 11:36 AM [facility] EMERGENCY DEPARTMENT REPOSITORY TYPE CODE TESTS RESULT OUT OF REFERENCE UNITS RANGE LAB K(LOINC) 3.5-5.0 mEq/L Potassium Level 4.4 Performed By: #### K #### [place] [address] CRUR Collected: 03/05/2018 Status: F Source: [facility] 10:12 AM [facility] EMERGENCY DEPARTMENT REPOSITORY TYPE CODE TESTS RESULT OUT OF REFERENCE UNITS RANGE LAB CRU(LOINC) mg/dL U Creatinine 71.7 Performed By: #### CRUR, NAUR #### [place] [address] NAUR Collected: 03/05/2018 Status: F Source: [facility] 10:12 AM [facility] EMERGENCY DEPARTMENT REPOSITORY TYPE CODE TESTS RESULT OUT OF REFERENCE UNITS RANGE LAB OSCAR(LOINC) mEq/L U Sodium 44.0 Performed By: #### CRUR, NAUR #### [place] [address] CBC Collected: 03/05/2018 Status: F Source: [facility] 7:42 AM [facility] EMERGENCY DEPARTMENT REPOSITORY TYPE CODE TESTS RESULT OUT OF REFERENCE UNITS RANGE LAB WBC(LOINC) 4.50-10.80 10 3/mcL WBC 7.90 LAB RBCCT(LOINC 4.10-5.30 10 6/mcL ) Low RBC 3.01 LAB HGB(LOINC) 12.0-16.0 G/dL Low Hgb 9.9 LAB HCT(LOINC) 34.0-46.0 % Low Hct 28.5 LAB MCV(LOINC) 80.0-99.0 fL MCV 94.8 LAB MCH(LOINC) 27.0-33.0 pg MCH 33.0 LAB MCHC(LOINC) 32.0-36.0 G/dL MCHC 34.8 LAB RDW(LOINC) 11.5-15.5 % RDW 13.7 LAB PLT(LOINC) 150-450 10 3/mcL Low Platelet 108 LAB MPV(LOINC) 6.6-10.5 fL MPV 10.3 Performed By: #### CBC, ADYANN, ANEU #### [place] [address] .AUTO DIFF Collected: 03/05/2018 Status: F Source: [facility] 7:42 AM [facility] EMERGENCY DEPARTMENT REPOSITORY TYPE CODE TESTS RESULT OUT OF REFERENCE UNITS RANGE LAB KAMLA(LOINC) 50.0-75.0 % High Neutrophil % 80.1 LAB LYM(LOINC) 20.0-40.0 % Low Lymphocyte % 9.9 LAB MON(LOINC) 2.0-13.0 % Monocyte % 8.5 LAB EO(LOINC) 0.0-6.0 % Eosinophil % 0.8 LAB BAS(LOINC) 0.0-2.5 % Basophil % 0.7 LAB ABLYM(LOIN 0.90-4.32 10 3/mcL C) Low Lymphocyte, 0.80 Absolute LAB REINA(LOINC 0.09-1.40 10 3/mcL ) Monocyte, 0.70 Absolute LAB AEOS(LOINC 0.00-0.65 10 3/mcL ) Eosinophil, 0.10 Absolute LAB ABAS(LOINC 0.00-0.27 10 3/mcL ) Basophil, 0.10 Absolute Performed By: #### RICO MOON, ANEU #### [place] [address] .NEUABS Collected: 03/05/2018 Status: F Source: [facility] 7:42 AM [facility] EMERGENCY DEPARTMENT REPOSITORY TYPE CODE TESTS RESULT OUT OF REFERENCE UNITS RANGE LAB ANEU(LOINC) 2.25-8.10 10 3/mcL Neutrophil, 6.40 Absolute Performed By: #### CBC, ADIFF, ANEU #### [place] [address] K Collected: 03/05/2018 Status: F Source: [facility] 7:42 AM [facility] EMERGENCY DEPARTMENT REPOSITORY TYPE CODE TESTS RESULT OUT OF REFERENCE UNITS RANGE LAB K(LOINC) 3.5-5.0 mEq/L Potassium Level 4.6 Performed By: #### K #### [place] [address] BMP Collected: 03/05/2018 Status: F Source: [facility] 5:30 AM [facility] EMERGENCY DEPARTMENT REPOSITORY TYPE CODE TESTS RESULT OUT OF REFERENCE UNITS RANGE LAB GLU(LOINC) 70-110 mg/dL Glucose High Level 275 LAB NA(LOINC) 136-145 mEq/L Sodium Level 137 LAB K(LOINC) 3.5-5.0 mEq/L Potassium Level 4.9 LAB CL(LOINC) 98-110 mEq/L Chloride 102 LAB CO2(LOINC) 22-32 mEq/L CO2 27 LAB EBAL(LOINC 4.0-15.0 mEq/L ) Electrolyte Balance 8.0 LAB BUN(LOINC) 8.0-22.0 mg/dL BUN High 75.0 LAB CRE(LOINC) 0.50-1.20 mg/dL Creatinine High Lvl (s) 2.53 LAB BC(LOINC) 10.0-22.0 ratio High BUN/Creatinine 29.6 Ratio LAB CA(LOINC) 8.4-10.1 mg/dL Calcium Lvl 8.5 Performed By: #### CORRY, MG, GFR #### [place] [address] MG Collected: 03/05/2018 Status: F Source: [facility] 5:30 AM [facility] EMERGENCY DEPARTMENT REPOSITORY TYPE CODE TESTS RESULT OUT OF REFERENCE UNITS RANGE LAB MG(LOINC) 1.6-2.4 mg/dL Magnesium Lvl 2.4 Performed By: #### CORRY, MG, GFR #### [place] [address] .GFR Collected: 03/05/2018 Status: F Source: [facility] 5:30 AM [facility] EMERGENCY DEPARTMENT REPOSITORY TYPE CODE TESTS RESULT OUT OF REFERENCE UNITS RANGE LAB GFRAA(LOINC ml/min/1.73 ) sqm GFR 24 [place] Result Comment: GFR Population mean for , Non- Americans Ages 20-29 = 116 mL/min/1.73 sq.m. Ages 30-39 = 107 mL/min/1.73 sq.m. Ages 40-49 = 99 mL/min/1.73 sq.m. Ages 50-59 = 93 mL/min/1.73 sq.m. Ages 60-69 = 85 mL/min/1.73 sq.m. Ages 70+ = 75 mL/min/1.73 sq.m. Chronic Kidney Disease: Less than 60 mL/min/1.73 square meters End Stage Renal Disease: Less than 15 mL/min/1.73 square meters LAB GFRNO(LOINC) ml/min/1.73sqm GFR Non- 20 Result Comment: GFR Population mean for , Non- Americans Ages 20-29 = 116 mL/min/1.73 sq.m. Ages 30-39 = 107 mL/min/1.73 sq.m. Ages 40-49 = 99 mL/min/1.73 sq.m. Ages 50-59 = 93 mL/min/1.73 sq.m. Ages 60-69 = 85 mL/min/1.73 sq.m. Ages 70+ = 75 mL/min/1.73 sq.m. Chronic Kidney Disease: Less than 60 mL/min/1.73 square meters End Stage Renal Disease: Less than 15 mL/min/1.73 square meters Performed By: #### BMP, MG, GFR #### [place] [address] K Collected: 03/05/2018 Status: F Source: [facility] 5:22 AM [facility] EMERGENCY DEPARTMENT REPOSITORY TYPE CODE TESTS RESULT OUT OF REFERENCE UNITS RANGE LAB K(LOINC) 3.5-5.0 mEq/L Potassium Level 4.9 Performed By: #### K #### [place] [address] DIG Collected: 03/05/2018 Status: F Source: [facility] 5:22 AM [facility] EMERGENCY DEPARTMENT REPOSITORY TYPE CODE TESTS RESULT OUT OF RANGE REFERENCE UNITS LAB LD005(LOIN C) LDose See eMAR Digoxin: LAB DIGO(LOINC 0.8-2.0 ng/mL ) Abnormal Alert Digoxin Level 2.5 Result Comment: For patients with CHF Normal Therapeutic range = 0.5 - 0.9 ng/mL Performed By: #### DIG #### [place] [address] US RENAL Observed: 03/05/2018 Status: F Source: [facility] 4:30 AM [facility] EMERGENCY DEPARTMENT REPOSITORY ORIGINAL Complete retroperitoneal ultrasound for the kidneys HISTORY: Hyperkalemia COMPARISON: None The RIGHT kidney measures 11.7 cm in length. There is a 10 mm cyst at the RIGHT lower pole kidney. The RIGHT renal pelvis is visible but is considered within normal limits of size. No collecting system dilatation, stone, mass or perinephric fluid are identified. The LEFT kidney cannot be visualized well due to prominent bowel gas. It is partially visible, especially at the upper pole. There is no definite contributory LEFT renal finding seen. The urinary bladder is catheterized and collapsed and cannot be assessed. There is no free fluid seen. IMPRESSION: Difficult exam as discussed above, no definite indicators of hydronephrosis. Interpreted By: Walter Brownlee MD Preliminary Report By: Walter Brownlee MD Electronically Signed By: Walter Brownlee MD Dictated Date: 03/05/2018 5:04:35 AM Prelim Date: 03/05/2018 5:04:35 AM Sign Date: 03/05/2018 5:06:03 AM K Collected: 03/05/2018 Status: F Source: [facility] 12:08 AM [facility] EMERGENCY DEPARTMENT REPOSITORY TYPE CODE TESTS RESULT OUT OF REFERENCE UNITS RANGE LAB K(LOINC) 3.5-5.0 mEq/L High Potassium Level 5.2 Performed By: #### K #### [place] [address] K Collected: 03/04/2018 Status: F Source: [facility] 8:53 PM [facility] EMERGENCY DEPARTMENT REPOSITORY TYPE CODE TESTS RESULT OUT OF RANGE REFERENCE UNITS LAB K(LOINC) 3.5-5.0 mEq/L Abnormal Alert Potassium Level 6.4 Performed By: #### K #### [place] [id number] BG Collected: 03/04/2018 Status: F Source: [facility] 7:18 PM [facility] EMERGENCY DEPARTMENT REPOSITORY TYPE CODE TESTS RESULT OUT OF REFERENCE UNITS RANGE LAB PH(LOINC) 7.380-7.460 Low pH 7.344 LAB PCO2(LOINC 32.0-46.0 mmHg ) pCO2 44.0 LAB PO2(LOINC) 74.0-108.0 mmHg pO2 79.0 LAB HCO3(LOINC 21.0-29.0 mmol/L ) HCO3 23.4 LAB TCO2(LOINC 22.0-30.0 mmol/L ) CO2 Totl 24.8 LAB BE(LOINC) mmol/L Base Excess -2.3 LAB O2SAT(LOIN 92.0-96.0 % C) O2 Sat 94.8 LAB BPRES(LOIN mmHg C) Barometric 730 Pressure Performed By: #### BG #### [place] [address] CBC Collected: 03/04/2018 Status: F Source: [facility] 4:16 PM [facility] EMERGENCY DEPARTMENT REPOSITORY TYPE CODE TESTS RESULT OUT OF REFERENCE UNITS RANGE LAB WBC(LOINC) 4.50-10.80 10 3/mcL High WBC 13.40 LAB RBCCT(LOINC 4.10-5.30 10 6/mcL ) Low RBC 3.91 LAB HGB(LOINC) 12.0-16.0 G/dL Hgb 12.5 LAB HCT(LOINC) 34.0-46.0 % Hct 37.4 LAB MCV(LOINC) 80.0-99.0 fL MCV 95.8 LAB MCH(LOINC) 27.0-33.0 pg MCH 32.1 LAB MCHC(LOINC) 32.0-36.0 G/dL MCHC 33.5 LAB RDW(LOINC) 11.5-15.5 % RDW 14.0 LAB PLT(LOINC) 150-450 10 3/mcL Platelet 159 LAB MPV(LOINC) 6.6-10.5 fL High MPV 10.9 Performed By: #### CBC, ADIFF, ANEU, GFR, BMP, DIG #### [place] [address] .AUTO DIFF Collected: 03/04/2018 Status: F Source: [facility] 4:16 [facility] REPOSITORY TYPE CODE TESTS RESULT OUT OF REFERENCE UNITS RANGE LAB KAMLA(LOINC) 50.0-75.0 % High Neutrophil % 89.3 LAB LYM(LOINC) 20.0-40.0 % Low Lymphocyte % 4.5 LAB MON(LOINC) 2.0-13.0 % Monocyte % 5.2 LAB EO(LOINC) 0.0-6.0 % Eosinophil % 0.5 LAB BAS(LOINC) 0.0-2.5 % Basophil % 0.5 LAB ABLYM(LOIN 0.90-4.32 10 3/mcL C) Low Lymphocyte, 0.60 Absolute LAB REINA(LOINC 0.09-1.40 10 3/mcL ) Monocyte, 0.70 Absolute LAB AEOS(LOINC 0.00-0.65 10 3/mcL ) Eosinophil, 0.10 Absolute LAB ABAS(LOINC 0.00-0.27 10 3/mcL ) Basophil, 0.10 Absolute Performed By: #### CBC, ADIFF, ANEU, GFR, BMP, DIG #### [address] [address] .NEUABS Collected: 03/04/2018 Status: F Source: [facility] 4:16 PM [facility] EMERGENCY DEPARTMENT REPOSITORY TYPE CODE TESTS RESULT OUT OF REFERENCE UNITS RANGE LAB ANEU(LOINC) 2.25-8.10 10 3/mcL High Neutrophil, 12.00 Absolute Performed By: #### CBC, ADIFF, ANEU, GFR, BMP, DIG #### [address] [address] .GFR Collected: 03/04/2018 Status: F Source: [facility] 4:16 PM [facility] EMERGENCY DEPARTMENT REPOSITORY TYPE CODE TESTS RESULT OUT OF REFERENCE UNITS RANGE LAB GFRAA(LOINC ml/min/1.73 ) sqm GFR 20 [place] Result Comment: GFR Population mean for , Non- Americans Ages 20-29 = 116 mL/min/1.73 sq.m. Ages 30-39 = 107 mL/min/1.73 sq.m. Ages 40-49 = 99 mL/min/1.73 sq.m. Ages 50-59 = 93 mL/min/1.73 sq.m. Ages 60-69 = 85 mL/min/1.73 sq.m. Ages 70+ = 75 mL/min/1.73 sq.m. Chronic Kidney Disease: Less than 60 mL/min/1.73 square meters End Stage Renal Disease: Less than 15 mL/min/1.73 square meters LAB GFRNO(LOINC) ml/min/1.73sqm GFR Non- 16 Result Comment: GFR Population mean for , Non- Americans Ages 20-29 = 116 mL/min/1.73 sq.m. Ages 30-39 = 107 mL/min/1.73 sq.m. Ages 40-49 = 99 mL/min/1.73 sq.m. Ages 50-59 = 93 mL/min/1.73 sq.m. Ages 60-69 = 85 mL/min/1.73 sq.m. Ages 70+ = 75 mL/min/1.73 sq.m. Chronic Kidney Disease: Less than 60 mL/min/1.73 square meters End Stage Renal Disease: Less than 15 mL/min/1.73 square meters Performed By: #### CBC, ADIFF, ANEU, GFR, BMP, DIG #### [address] [address] BMP Collected: 03/04/2018 Status: F Source: [facility] 4:16 PM [facility] EMERGENCY DEPARTMENT REPOSITORY TYPE CODE TESTS RESULT OUT OF RANGE REFERENCE UNITS LAB GLU(LOINC) 70-110 mg/dL High Glucose Level 353 LAB NA(LOINC) 136-145 mEq/L Low Sodium Level 129 LAB K(LOINC) 3.5-5.0 mEq/L Abnormal Alert Potassium Level 7.1 Result Comment: Specimen is NOT hemolyzed. LAB CL(LOINC) 98-110 mEq/L Chloride 98 LAB CO2(LOINC) 22-32 mEq/L CO2 25 LAB EBAL(LOINC) 4.0-15.0 mEq/L Electrolyte Balance 6.0 LAB BUN(LOINC) 8.0-22.0 mg/dL BUN High 88.0 LAB CRE(LOINC) 0.50-1.20 mg/dL Creatinine Lvl High (s) 2.98 LAB BC(LOINC) 10.0-22.0 ratio BUN/Creatinine High Ratio 29.5 LAB CA(LOINC) 8.4-10.1 mg/dL Calcium Lvl 8.6 Performed By: #### CBC, ADIFF, ANEU, GFR, BMP, DIG #### [address] [address] DIG Collected: 03/04/2018 Status: F Source: [facility] 4:16 PM [facility] EMERGENCY DEPARTMENT REPOSITORY TYPE CODE TESTS RESULT OUT OF RANGE REFERENCE UNITS LAB LD005(LOIN C) LDose Unknown Digoxin: LAB DIGO(LOINC 0.8-2.0 ng/mL ) Abnormal Alert Digoxin Level 3.2 Result Comment: For patients with CHF Normal Therapeutic range = 0.5 - 0.9 ng/mL Performed By: #### CBC, ADIFF, ANEU, GFR, BMP, DIG #### [address] [address] FINAL SURGICAL Observed: 03/04/2018 Status: F Source: [facility] PATHOLOGY REPORT 12:07 PM [facility] EMERGENCY DEPARTMENT REPOSITORY . Pathology Reports Accession: Collected Date/Time: Received Date/Time: Pathologist: [id number] 03/04/2018 12:07 EDT 03/05/2018 07:49 LIZETTET MD SUE MORALES Final Surgical Pathology Report DIAGNOSIS: A) PANNUS, PANNICULECTOMY: - SEGMENTS OF HISTOLOGICALLY AND GROSSLY UNREMARKABLE SKIN AND UNDERLYING FIBROADIPOSE TISSUE CONSISTENT WITH PANNUS. B) UTERUS, CERVIX, BILATERAL TUBES AND OVARIES, TOTAL ABDOMINAL HYSTERECTOMY AND BILATERAL SALPINGO-OOPHORECTOMY: - INVASIVE ENDOMETRIAL ADENOCARCINOMA (PLEASE SEE SURGICAL CANCER CASE SUMMARY). SURGICAL PATHOLOGY CANCER CASE SUMMARY (ENDOMETRIUM): PROCEDURE: TOTAL HYSTERECTOMY AND BILATERAL SALPINGO-OOPHORECTOMY HISTOLOGIC TYPE: ENDOMETRIOID CARCINOMA WITH FOCAL VILLOGLANDULAR FORMATION. HISTOLOGIC GRADE: FIGO GRADE 1 MYOMETRIAL INVASION: PRESENT, (MUCH LESS THAN THE INNER 50%.) UTERUS, SEROSAL INVOLVEMENT: NOT IDENTIFIED CERVICAL STROMAL INVOLVEMENT: NOT IDENTIFIED\ OTHER TISSUE/ORGAN INVOLVEMENT: N/A MARGINS: N/A LYMPHOVASCULAR INVASION: NOT IDENTIFIED REGIONAL LYMPH NODES: NO LYMPH NODES SUBMITTED OR FOUND OTHER: NO INVOLVEMENT OF RIGHT, LEFT OVARY OR RIGHT, LEFT FALLOPIAN TUBE. TN CLASSIFICATION pT=1a pN=X CLINICAL INFORMATION: Procedure: EXPLORATORY LAPAROTOMY, TOTAL ABDOMINAL HYSTERECTOMY, BILATERAL SALPINGO- OOPHORECTOMY , PANNICULECTOMY Preoperative diagnosis: UTERINE CANCER Postoperative diagnosis: UTERINE CANCER SPECIMEN: A TISSUE - PANNUS B UTERUS, CERVIX, BILATERAL TUBES AND OVARIES GROSS DESCRIPTION: A. Received in formalin labeled pannus is a 6030 g, 51 x 27 x 8 cm aggregate of yellow fatty subcutaneous tissue which is partially surfaced by bajwa supple skin. Skin surfaces show scattered striations. Sectioning shows yellow lobular adipose tissue with scant, intermixed white fibrous tissue. RS -1 B. Received in formalin labeled uterus, cervix, bilateral tubes and ovaries is a 117 g, previously partially opened uterus with attached cervix, and previously amputated bilateral adnexa. The serosa is red and smooth. The uterus and cervix shows a reconstructed measurement of 8.5 x 4.9 x 3.6 cm. Cervix is 3.5 cm in greatest diameter, with 0.2 cm patent os. The ectocervix is bajwa-bright red and glistening. The Endocervix is bajwa glistening and mildly trabeculated. The transformation zone appears grossly unremarkable. The endometrium displays a 4.3 x 3 x 1.3 cm bajwa, soft to rubbery, focally excrescent tumor focally occupying both arvizu. The tumor comes to within 5 cm of the closest distal cervical margin and 2 cm of the closest lateral margin. The deepest area of invasion is on the posterior wall and is contained to the Pathology Reports Accession: Collected Date/Time: Received Date/Time: Pathologist: [id number] 03/04/2018 12:07 EDT 03/05/2018 07:49 EDT MD SUE MORALES GROSS DESCRIPTION: inner half of the myometrium. The underlying myometrium is bajwa-pink, soft, and averages 1.6 cm in thickness. The ovaries are 3.3 x 2.5 x 2.0 cm and 5.2 x 2.5 x 1.7 cm. Both display a bajwa-pink smooth and cerebriform outer surface. Sectioning shows a few clear fluid-filled thin- walled cysts measuring up to 0.9 cm in greatest dimension. The fallopian tubes average 5.5 cm in length. Each displays fimbria. Sectioning shows pinpoint lumina. Also received is a 3.4 x 3.2 x 0.4 cm in greatest dimension T-shaped intrauterine device with a 6.5 cm in length suture extending from 1 end.RS -8 1 -3 anterior wall cervix and endomyometrium with tumor 4 -6 posterior wall cervix and endomyometrium with deepest areas of invasion of tumor 7 -8 bilateral adnexa, larger and smaller ovaries respectively Dictated by ARGENIS MONDRAGON (ASCP) MICROSCOPIC DESCRIPTION: Slides reviewed. Electronically Signed by Pathology Report verified by [facility] Electronically signed by SUE MORALES MD Sign out Date: 03/07/2018 15:54 Performing Lab: [facility], [address] [place] [address] Performed By: #### SPFR #### [place] [address] PLT Collected: 03/04/2018 Status: F Source: [facility] 9:10 AM [facility] REPOSITORY TYPE CODE TESTS RESULT OUT OF REFERENCE UNITS RANGE LAB PLT(LOINC) 150-450 10 3/mcL Low Platelet 141 Performed By: #### PLT, FIB, APTT, PRO, K #### [place] [id number] [address] [place] [address] FIB Collected: 03/04/2018 Status: F Source: [facility] 9:10 AM [facility] EMERGENCY DEPARTMENT REPOSITORY TYPE CODE TESTS RESULT OUT OF REFERENCE UNITS RANGE LAB FIB(LOINC) 250-550 mg/dL High Fibrinogen 628 Performed By: #### PLT, FIB, APTT, PRO, K #### [place] [address] APTT Collected: 03/04/2018 Status: F Source: [facility] 9:10 AM [facility] REPOSITORY Order Comment: repeat am of OR TYPE CODE TESTS RESULT OUT OF REFERENCE UNITS RANGE LAB PDOSE(LOIN C) Heparin dose Coumadin PO (APTT) LAB APTT0(LOIN 25.0-35.0 seconds C) APTT 28.8 Result Comment: For Heparin anticoagulation therapy, the recommended therapeutic range is: 54-77 seconds (APTT Correlation with Anti-Xa therapeutic range of 0.3-0.7 units/ml). PLEASE REFERENCE THE PHARMACY PROTOCOL FOR DOSING. Performed By: #### PLT, FIB, APTT, PRO, K #### [place] [address] PRO Collected: 03/04/2018 Status: F Source: [facility] 9:10 AM [facility] EMERGENCY DEPARTMENT REPOSITORY TYPE CODE TESTS RESULT OUT OF REFERENCE UNITS RANGE LAB PT(LOINC) 9.0-14.5 seconds Protime 12.9 Result Comment: Effective 04/14/08, Protime results may be affected by some antibiotics (i.e. Ciprofloxacin, Azithromycin, Bactrim) which may potentiate the action of oral anticoagulants, with further increases in Protime/INR. LAB INR(LOINC) ratio PT International Ratio 1.1 Result Comment: The [employer] (CHEST, 1992, [id number]) recommended therapeutic range for oral anticoagulant therapy is: LOW RISK: Prophylaxis of venous thrombosis INR: 2.0-3.0 Treatment of pulmonary embolism 2.0-3.0 Prevention of systemic embolism 2.0-3.0 HIGH RISK: Mechanical prosthetic valves 2.5-3.5 Performed By: #### PLT, FIB, APTT, PRO, K #### [place] [address] K Collected: 03/04/2018 Status: F Source: [facility] 9:10 AM [facility] EMERGENCY DEPARTMENT REPOSITORY TYPE CODE TESTS RESULT OUT OF REFERENCE UNITS RANGE LAB K(LOINC) 3.5-5.0 mEq/L High Potassium Level 5.3 Performed By: #### PLT, FIB, APTT, PRO, K #### [place] [address] TABO Collected: 02/27/2018 Status: F Source: [facility] 4:06 PM [facility] EMERGENCY DEPARTMENT REPOSITORY TYPE CODE TESTS RESULT OUT OF RANGE REFERENCE UNITS LAB ABORH(LOINC ) Unknown ABO/Rh A POS Interp Performed By: #### ABORH, ANTIS #### [place] [address] TABS Collected: 02/27/2018 Status: F Source: [facility] 4:06 PM [facility] EMERGENCY DEPARTMENT REPOSITORY TYPE CODE TESTS RESULT OUT OF REFERENCE UNITS RANGE LAB ANST(LOINC ) Antibody Negative ABSC Screen Tango Performed By: #### ABORH, ANTIS #### [place] [address] CBC Collected: 02/27/2018 Status: F Source: [facility] 4:05 PM [facility] EMERGENCY DEPARTMENT REPOSITORY TYPE CODE TESTS RESULT OUT OF REFERENCE UNITS RANGE LAB WBC(LOINC) 4.50-10.80 10 3/mcL WBC 9.80 LAB RBCCT(LOINC 4.10-5.30 10 6/mcL ) RBC 4.28 LAB HGB(LOINC) 12.0-16.0 G/dL Hgb 13.8 LAB HCT(LOINC) 34.0-46.0 % Hct 40.3 LAB MCV(LOINC) 80.0-99.0 fL MCV 94.3 LAB MCH(LOINC) 27.0-33.0 pg MCH 32.2 LAB MCHC(LOINC) 32.0-36.0 G/dL MCHC 34.2 LAB RDW(LOINC) 11.5-15.5 % RDW 13.4 LAB PLT(LOINC) 150-450 10 3/mcL Platelet 173 LAB MPV(LOINC) 6.6-10.5 fL MPV 10.5 Performed By: #### CBC, ADIFF, ANEU, GFR, CMP, PRO #### [place] [address] .AUTO DIFF Collected: 02/27/2018 Status: F Source: [facility] 4:05 [facility] REPOSITORY TYPE CODE TESTS RESULT OUT OF REFERENCE UNITS RANGE LAB KAMLA(LOINC) 50.0-75.0 % Neutrophil % 72.7 LAB LYM(LOINC) 20.0-40.0 % Low Lymphocyte % 16.0 LAB MON(LOINC) 2.0-13.0 % Monocyte % 7.4 LAB EO(LOINC) 0.0-6.0 % Eosinophil % 3.0 LAB BAS(LOINC) 0.0-2.5 % Basophil % 0.9 LAB ABLYM(LOIN 0.90-4.32 10 3/mcL C) Lymphocyte, 1.60 Absolute LAB REINA(LOINC 0.09-1.40 10 3/mcL ) Monocyte, 0.70 Absolute LAB AEOS(LOINC 0.00-0.65 10 3/mcL ) Eosinophil, 0.30 Absolute LAB ABAS(LOINC 0.00-0.27 10 3/mcL ) Basophil, 0.10 Absolute Performed By: #### CBC, ADIFF, ANEU, GFR, CMP, PRO #### [place] [address] .NEUABS Collected: 02/27/2018 Status: F Source: [facility] 4:05 [facility] REPOSITORY TYPE CODE TESTS RESULT OUT OF REFERENCE UNITS RANGE LAB ANEU(LOINC) 2.25-8.10 10 3/mcL Neutrophil, 7.10 Absolute Performed By: #### CBC, ADIFF, ANEU, GFR, CMP, PRO #### [place] [address] .GFR Collected: 02/27/2018 Status: F Source: [facility] 4:05 [facility] REPOSITORY TYPE CODE TESTS RESULT OUT OF REFERENCE UNITS RANGE LAB GFRAA(LOINC ml/min/1.73 ) sqm GFR 20 [place] Result Comment: GFR Population mean for , Non- Americans Ages 20-29 = 116 mL/min/1.73 sq.m. Ages 30-39 = 107 mL/min/1.73 sq.m. Ages 40-49 = 99 mL/min/1.73 sq.m. Ages 50-59 = 93 mL/min/1.73 sq.m. Ages 60-69 = 85 mL/min/1.73 sq.m. Ages 70+ = 75 mL/min/1.73 sq.m. Chronic Kidney Disease: Less than 60 mL/min/1.73 square meters End Stage Renal Disease: Less than 15 mL/min/1.73 square meters LAB GFRNO(LOINC) ml/min/1.73sqm GFR Non- 17 Result Comment: GFR Population mean for , Non- Americans Ages 20-29 = 116 mL/min/1.73 sq.m. Ages 30-39 = 107 mL/min/1.73 sq.m. Ages 40-49 = 99 mL/min/1.73 sq.m. Ages 50-59 = 93 mL/min/1.73 sq.m. Ages 60-69 = 85 mL/min/1.73 sq.m. Ages 70+ = 75 mL/min/1.73 sq.m. Chronic Kidney Disease: Less than 60 mL/min/1.73 square meters End Stage Renal Disease: Less than 15 mL/min/1.73 square meters Performed By: #### CBC, ADIFF, ANEU, GFR, CMP, PRO #### [place] [id number] CMP Collected: 02/27/2018 Status: F Source: [facility] 4:05 PM [facility] REPOSITORY TYPE CODE TESTS RESULT OUT OF REFERENCE UNITS RANGE LAB GLU(LOINC) 70-110 mg/dL Glucose High Level 186 LAB NA(LOINC) 136-145 mEq/L Sodium Level 138 LAB K(LOINC) 3.5-5.0 mEq/L Potassium High Level 5.1 LAB CL(LOINC) 98-110 mEq/L Chloride 99 LAB CO2(LOINC) 22-32 mEq/L CO2 28 LAB EBAL(LOINC 4.0-15.0 mEq/L ) Electrolyte Balance 11.0 LAB BUN(LOINC) 8.0-22.0 mg/dL BUN High 63.0 LAB CRE(LOINC) 0.50-1.20 mg/dL Creatinine High Lvl (s) 2.93 LAB BC(LOINC) 10.0-22.0 ratio BUN/Creatinine 21.5 Ratio LAB CA(LOINC) 8.4-10.1 mg/dL Calcium Lvl 9.9 LAB PROT(LOINC 6.0-8.5 G/dL ) Total Protein 7.8 LAB ALB(LOINC) 3.2-4.8 G/dL Albumin Level 3.6 LAB GLB(LOINC) 1.5-3.8 G/dL Globulin High 4.2 LAB AG(LOINC) 0.9-1.6 ratio A/G Ratio 0.9 LAB BILT(LOINC 0.2-1.2 mg/dL ) Bili Total 0.7 LAB AP(LOINC) 38-126 U/L Alk Phos 117 LAB AST(LOINC) 8-34 U/L AST/SGOT 32 LAB ALT(LOINC) 10-49 U/L ALT/SGPT 24 Performed By: #### CBC, ADIFF, ANEU, GFR, CMP, PRO #### [facility] [address] [place] [id number] PRO Collected: 02/27/2018 Status: F Source: [facility] 4:05 PM [facility] REPOSITORY TYPE CODE TESTS RESULT OUT OF REFERENCE UNITS RANGE LAB PT(LOINC) 9.0-14.5 seconds High Protime 16.6 Result Comment: Effective 04/14/08, Protime results may be affected by some antibiotics (i.e. Ciprofloxacin, Azithromycin, Bactrim) which may potentiate the action of oral anticoagulants, with further increases in Protime/INR. LAB INR(LOINC) ratio PT International Ratio 1.4 Result Comment: The [employer] (CHEST, 1992, [id number]) recommended therapeutic range for oral anticoagulant therapy is: LOW RISK: Prophylaxis of venous thrombosis INR: 2.0-3.0 Treatment of pulmonary embolism 2.0-3.0 Prevention of systemic embolism 2.0-3.0 HIGH RISK: Mechanical prosthetic valves 2.5-3.5 Performed By: #### CBC, ADIFF, ANEU, GFR, CMP, PRO #### [facility] [address] [place] [id number] PROGRESS Observed: 02/22/2018 Status: COMPLETED Source: [place] 4:09 PM [facility] REPOSITORY HNO ID: [id number] Author: Radha Saldaña RN Service: (none) Author Type: (none) Type: Progress Notes Filed: 02/22/2018 4:10 PM Note Text: per written order by dr garza patient is to hold today and then 7.5mg Mon,Fri and 5mg all other days and recheck 1-2 weeks after surgery PATIENT NOTIFIED OF INFORMATION PROGRESS Observed: 02/22/2018 Status: COMPLETED Source: [place] 2:07 PM [facility] REPOSITORY HNO ID: [id number] Author: Radha Saldaña RN Service: (none) Author Type: (none) Type: Progress Notes Filed: 02/22/2018 2:09 PM Note Text: patient had inr completed at [facility] patients inr is 3.4 (patients inr range is 2.0-3.0) patient is currently taking 7.5mg Tues,Thurs,Sat and 5mg all other days patients last dose change was on 12/26/16 due to a low level of 1.6 (dose at that time was 7.5mg Tues,Thurs and 5mg all other days) patient has had no changes in medication and no missed doses and no change in diet FYI - patient is going to be stopping coumadin on 02/26/18 due to surgery scheduled on 03/04/18 Advised patient that they would be contacted regarding medication dose and when to follow up after information is reviewed by provider. After provider review please contact the patient with information and schedule follow up appointment with coumadin clinic. PROGRESS Observed: 02/14/2018 Status: COMPLETED Source: [place] 1:06 PM [facility] REPOSITORY HNO ID: [id number] Author: Sue Garzon Service: (none) Author Type: Physician Type: Progress Notes Filed: 02/14/2018 9:44 PM Note Text: Sue Garzon DPM Department of Podiatry [address] [facility] [address] Dept: [phone] Dept Diabetic Nail Care SUBJECTIVE: Follow up office visit: This 57 year old female presents to clinic for diabetic foot exam and toenail care on left foot. Patient states that the nails are especially painful with shoe gear and pressure. Patient admits to being diabetic and states that their blood sugar was 159 mg/dL this AM. Patient denies claudication type symptoms when walking. No other pedal complaints at this time. No change in medications or medical history since last visit. OBJECTIVE: Patient presents to clinic in power chair; . Vasc: DP and PT pulses are faint to left foot. CFT is less than 5 seconds left Skin temperature is warm to cool proximal to distal left. There is mild edema or varicosities noted. Hair growth decreased. Neuro: Protective sensation is absent to the foot and toes when tested with the 5.07 SWM bilateral. Vibratory sensation is absent at the hallux left. significant neurological defecits. Derm: Inspection and palpation performed. Nails 1-5 left are painful, discolored-yellow, thick, crumbly, dystrophic and with subungal debris. Skin is of normal turgor and texture. Hyperkeratosis no. NO ulcerations, scars, verruca or other lesions noted. There is dry eschar to anterior aspect of left leg that does not appear to be infected Ortho: Ankle joint DF is decreased with the knee extended and decreased with knee flexed. No pain or crepitus noted. STJ, MTJ ROM are full and free of pain or crepitus. Muscle strength is 5/5 for dorsiflexors, plantarflexors, inverters, everters. Digital deformities include bka right. ASSESSMENT: (B35.1) Onychomycosis (primary encounter diagnosis) (M79.675) Pain in toe of left foot (I87.2) Venous (peripheral) insufficiency Plan: Patient was seen and evaluated. Nails 1-5 left were debrided in length and thickness. Discussed swelling of left leg leading placing patient at risk of ulceration. She has very small eschar of left leg. Recommend continue local wound care and use of light compression to prevent ulceration. Offered f/u in 3 weeks for eschar of left leg but she is having surgery so she will f/u in 3 months. She will contact us should she have any problems. Patient was instructed on the continued importance of diabetic foot care along with proper diet and keeping their blood sugar under control to prevent complications. Patient is to RTC in 3-4 months. GLENN Rothman Observed: 02/14/2018 Status: COMPLETED Source: [place] 1:00 PM [facility] REPOSITORY Office Visit (PODIWS) MARYANNESHOSHANA L ([id number]) 1960 F Date Time Provider Department 02/14/18 1:00 PM SUE GARZON During your visit today, we recorded the following information about you: Sue Garzon DPM 02/14/2018 9:44 PM Signed Sue Garzon DPM Department of Podiatry [address] [facility] [address] Dept: [phone] Dept Diabetic Nail Care SUBJECTIVE: Follow up office visit: This 57 year old female presents to clinic for diabetic foot exam and toenail care on left foot. Patient states that the nails are especially painful with shoe gear and pressure. Patient admits to being diabetic and states that their blood sugar was 159 mg/dL this AM. Patient denies claudication type symptoms when walking. No other pedal complaints at this time. No change in medications or medical history since last visit. OBJECTIVE: Patient presents to clinic in power chair; . Vasc: DP and PT pulses are faint to left foot. CFT is less than 5 seconds left Skin temperature is warm to cool proximal to distal left. There is mild edema or varicosities noted. Hair growth decreased. Neuro: Protective sensation is absent to the foot and toes when tested with the 5.07 SWM bilateral. Vibratory sensation is absent at the hallux left. significant neurological defecits. Derm: Inspection and palpation performed. Nails 1-5 left are painful, discolored-yellow, thick, crumbly, dystrophic and with subungal debris. Skin is of normal turgor and texture. Hyperkeratosis no. NO ulcerations, scars, verruca or other lesions noted. There is dry eschar to anterior aspect of left leg that does not appear to be infected Ortho: Ankle joint DF is decreased with the knee extended and decreased with knee flexed. No pain or crepitus noted. STJ, MTJ ROM are full and free of pain or crepitus. Muscle strength is 5/5 for dorsiflexors, plantarflexors, inverters, everters. Digital deformities include bka right. ASSESSMENT: (B35.1) Onychomycosis (primary encounter diagnosis) (M79.675) Pain in toe of left foot (I87.2) Venous (peripheral) insufficiency Plan: Patient was seen and evaluated. Nails 1-5 left were debrided in length and thickness. Discussed swelling of left leg leading placing patient at risk of ulceration. She has very small eschar of left leg. Recommend continue local wound care and use of light compression to prevent ulceration. Offered f/u in 3 weeks for eschar of left leg but she is having surgery so she will f/u in 3 months. She will contact us should she have any problems. Patient was instructed on the continued importance of diabetic foot care along with proper diet and keeping their blood sugar under control to prevent complications. Patient is to RTC in 3-4 months. GLENN Rothman RN 02/14/2018 1:38 PM Signed Apply Amerigel to your left leg ulceration Referring Provider: SUE GARZON [[id number]] Allergies As of Date: 02/14/2018 Noted Allergy Reaction IODINE 02/23/2007 2 - Rash LATEX 11/08/2005 2 - Rash MORPHINE 03/28/2013 1 - Mental Status Change PENICILLIN G 01/23/2007 2 - Rash CODEINE 10/16/2007 11 - Vomiting CONTRAST DYE 08/09/2006 8 - GI Upset MAXIDEX (DEXAMETHASONE) 09/03/2007 16 - Unknown Comments: on 03/28/13 patient does not remember reaction nor medication Date Reviewed: 02/14/2018 Reviewed by: Yessica Esposito Ma - Fully Assessed Reason for Visit: Diabetic Foot Care [916] Primary Visit Diagnosis:Onychomycosis [B35.1] Other Visit Diagnoses:Pain in toe of left foot [M79.675] Pain in toe of right foot [M79.674] Venous (peripheral) insufficiency [I87.2] Prescriptions as of 02/14/2018 Sig: BLOOD PRESSURE MONITOR KIT 1 Kit as directed. Home Kit, * X BLOOD PRESSURE MONITOR KIT 1 Kit as directed. Home Kit, * INSULIN REGULAR HUMAN U-500 * Inject 70 units every morning* DIGOXIN 125 MCG TABLET Take 1 tablet by mouth once d* COMPOUNDED PRESCRIPTION BLOOD PRESSURE CUFF FOR HOME * WARFARIN 5 MG TABLET TAKE 7.5mg sunday//s* LORAZEPAM 0.5 MG TABLET Take 1 tablet by mouth once d* CHOLECALCIFEROL (VITAMIN D3) * Take 1 capsule by mouth once * ESOMEPRAZOLE MAGNESIUM 40 MG * TAKE ONE CAPSULE BY MOUTH MARRY* HYDROCHLOROTHIAZIDE 12.5 MG C* TAKE TWO CAPSULES BY MOUTH EV* MAGNESIUM OXIDE 400 MG TABLET TAKE ONE TABLET BY MOUTH TWIC* TRAMADOL 50 MG TABLET Take 1 tablet by mouth every * GABAPENTIN 600 MG TABLET Take 1 tablet by mouth three * ATORVASTATIN 40 MG TABLET TAKE ONE TABLET BY MOUTH EVER* FUROSEMIDE 40 MG TABLET Take 1 tablet by mouth once d* LISINOPRIL 20 MG TABLET Take 1 tablet by mouth once d* CARVEDILOL 25 MG TABLET Take 1 tablet by mouth twice * PEN NEEDLE, DIABETIC 31 GAUGE* Use one needle per dose. 4 pe* BUPROPION XL 300 MG 24 HR TAB Take 1 tablet by mouth once d* EASY TOUCH INSULIN SYRINGE 0.* USE TWICE DAILY WITH insulin ALBUTEROL SULFATE HFA 90 MCG/* Inhale 2 Puffs as instructed * BLOOD SUGAR DIAGNOSTIC STRIPS Test blood sugar 3 times mervin* NYSTATIN 100,000 UNIT/GRAM TO* Apply 1 application to affect* COMPOUNDED PRESCRIPTION Magnifer for insulin syringe MUPIROCIN 2 % TOPICAL OINTMENT Apply 1 application to affect* Patient not taking: Reported on 02/04/2018 BLOOD-GLUCOSE METER KIT As directed NITROGLYCERIN 0.4 MG SUBLINGU* Dissolve under the tongue. O* DISPOSABLE GLOVES Use as needed for home care, * DICLOFENAC 1 % TOPICAL GEL Apply 2 g to affected area fo* DIAPER,BRIEF,ADULT,DISPOSABLE size 2X . uses 6 daily DX: * ASPIRIN 81 MG CHEWABLE TABLET Take 1 tablet by mouth once d* * NEBULIZER ACCESSORIES KIT Nebulizer accessory kit with * * LANCETS Test blood sugars 4 times earline* Problem List As Of Date 02/14/2018 Noted Resolved Obesity, Class III, BMI 40-49.9 (morbid obesity*INVALID FOR* Priority: H CORONARY ATHEROSCLER UNSPEC VESSEL [I25.10] INVALID FOR* Acute myocardial infarction, unspecified site, *INVALID FOR*07/24/2017 CONGESTIVE HEART FAILURE NOS [I50.9] INVALID FOR* Hyperlipemia, mixed [E78.2] INVALID FOR* More... Ulcer of heel and midfoot (HCC) [L97.409] INVALID FOR*07/24/2017 VARICOS LEG ULCER/INFLAM [I83.229, I83.219, L97*INVALID FOR* CARBUNCLE ARM (ABOVE WRIST) [L02.429] INVALID FOR*07/24/2017 CARBUNCLE FLANK [L02.229] INVALID FOR*07/24/2017 Blood in stool [K92.1] INVALID FOR*07/24/2017 Atrial fibrillation [I48.91] INVALID FOR*10/18/2015 Asthma-chronic obstructive pulmonary disease ov* More... Contusion of foot [S90.30XA] INVALID FOR*07/24/2017 Hereditary and idiopathic peripheral neuropathy*INVALID FOR* Cannabis abuse, episodic [F12.10] INVALID FOR*07/24/2017 RECURR DEPR PSYCHOS-MILD [F33.0] INVALID FOR* Eating disorder, unspecified [F50.9] INVALID FOR*07/24/2017 CERVICALGIA [M54.2] Carbuncle and furuncle of buttock [L02.33] INVALID FOR*07/24/2017 Essential hypertension [I10] INVALID FOR* More... Dermatophytosis of nail [B35.1] INVALID FOR*07/24/2017 Unspecified local infection of skin and subcuta*INVALID FOR*07/24/2017 More... Other malaise and fatigue [R53.81, R53.83] INVALID FOR*07/24/2017 ABNORMALITY OF GAIT [R26.9] INVALID FOR* WEAKNESS MUSCLE [M62.81] INVALID FOR* Multiple and unspecified open wound of lower li*INVALID FOR*07/24/2017 RESTLESS LEGS SYNDROME [G25.81] INVALID FOR* Vitamin D deficiency [E55.9] INVALID FOR* Neoplasm of unspecified nature of bone, soft ti*INVALID FOR*07/24/2017 Cellulitis and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 Creatinine High 2.06 LAB NA 136-144 mmol/L Low Sodium 129 LAB K 3.7-5.1 mmol/L Potassium 5.1 LAB CL 97-105 mmol/L Low Chloride 91 LAB CO2 22-30 mmol/L CO2 25 LAB AGAP 9-18 mmol/L Anion Gap 13 LAB ALT 7-38 U/L ALT 21 LAB GFRAA eGFR- Amer. 30 LAB GFRNAA . eGFR-All Other Races 25 Result Comment: eGFR (Estimated GFR) Units of measure: mL/min/1.73 meters squared eGFR is derived from the reexpressed MDRD Study equation using the following parameters: serum creatinine, age, gender and race. The creatinine assay has been calibrated to be traceable to IDMS. An eGFR <60 mL/min/1.73m2 for >3 months is consistent with chronic kidney disease. Refer to KDOQI guidelines for clinical interpretation. In patients with unstable renal function, e.g. those with acute kidney injury, the eGFR may not accurately reflect actual GFR. Performed By: #### FT4, CMP, LIPB, MG1, CBC, TSH, HBA1C #### [facility] [address] [place] [id number] LIPID PANEL, BASIC Collected: 01/24/2018 Status: F Source: [place] 1:50 PM [facility] REPOSITORY TYPE CODE TESTS RESULT OUT OF REFERENCE UNITS RANGE LAB CHOL <200 mg/dL Cholesterol 127 Result Comment: <200 mg/dL, Desirable 200-239 mg/dL, Borderline high >239 mg/dL, High LAB TRIGLY <150 mg/dL Triglyceride High 248 Result Comment: <150 mg/dL, Normal 150-199 mg/dL, Borderline high 200-499 mg/dL, High >499 mg/dL, Very high LAB HDL >39 mg/dL HDL-Cholesterol Low 27 Result Comment: 40-59 mg/dL, Acceptable >59 mg/dL, High: Negative risk factor for coronary heart disease <40 mg/dL, Low: Positive risk factor for coronary heart disease LAB LDL <100 mg/dL LDL-Cholesterol 50 Result Comment: <100 mg/dL, Optimal 100-129 mg/dL, Near optimal/above optimal 130-159 mg/dL, Borderline high 160-189 mg/dL, High >189 mg/dL, Very high Secondary prevention optimal LDL Cholesterol levels are recommended to be < 70 mg/dL LAB NONHDL <130 mg/dL Non HDL Cholesterol 100 Result Comment: <130 mg/dL, Optimal 130-159 mg/dL, Near optimal/above optimal 160-189 mg/dL, Borderline high 190-219 mg/dL, High >219 mg/dL, Very high Secondary prevention optimal non HDL Cholesterol levels are recommended to be < 100 mg/dL LAB FT hrs Fasting Time 3 LAB VLDL <30 mg/dL High VLDL Cholesterol 50 LAB TCHDL <5.10 TC:HDL Ratio 4.70 LAB LDLHDL <2.54 LDL:HDL Ratio 1.85 Result Comment: Reference: 1. National Cholesterol Education Program ATP III Guideline At-A-Glance Quick Desk Reference: National Heart, Lung, and Blood Millen. National Institutes of Health. 2001: NIH Publication No. 01-3305. 2. An International Atherosclerosis Society position paper: global recommendations for the management of dyslipidemia: executive summary, Atherosclerosis. 2014: 232(2):410-413. Performed By: #### FT4, CMP, LIPB, MG1, CBC, TSH, HBA1C #### [facility] [address] [place] [address] MAGNESIUM Collected: 01/24/2018 Status: F Source: [place] 1:50 PM [facility] REPOSITORY TYPE CODE TESTS RESULT OUT OF REFERENCE UNITS RANGE LAB MG 1.7-2.3 mg/dL Magnesium 1.8 Performed By: #### FT4, CMP, LIPB, MG1, CBC, TSH, HBA1C #### [facility] [address] [place] [id number] CBC Collected: 01/24/2018 Status: F Source: [place] 1:50 PM [facility] REPOSITORY TYPE CODE TESTS RESULT OUT OF REFERENCE UNITS RANGE LAB WBC 3.70-11.00 k/uL WBC 9.29 LAB RBC 3.90-5.20 m/uL RBC 4.19 LAB HGB 11.5-15.5 g/dL Hemoglobin 13.1 LAB HCT 36.0-46.0 % Hematocrit 39.3 LAB MCV 80.0-100.0 fL MCV 93.8 LAB MCH 26.0-34.0 pG MCH 31.3 LAB MCHC 30.5-36.0 g/dL MCHC 33.3 LAB RDWCV 11.5-15.0 % RDW-CV 13.2 LAB PLTCT 150-400 k/uL Platelet Count Platelets Clumped, Estimate Low Result Comment: Result checked and verified No clot detected. LAB MPV 9.0-12.7 fL MPV Unable to report LAB ABSNUC <0.01 k/uL Absolute nRBC <0.01 Performed By: #### FT4, CMP, LIPB, MG1, CBC, TSH, HBA1C #### [facility] [employer] [address] [id number] TSH Collected: 01/24/2018 Status: F Source: [place] 1:50 PM [facility] REPOSITORY TYPE CODE TESTS RESULT OUT OF RANGE REFERENCE UNITS LAB TSH 0.400-5.500 uU/mL TSH 2.590 Performed By: #### FT4, CMP, LIPB, MG1, CBC, TSH, HBA1C #### [facility] [employer] [address] [place] [address] HEMOGLOBIN A1C Collected: 01/24/2018 Status: F Source: [place] 1:50 PM [facility] REPOSITORY TYPE CODE TESTS RESULT OUT OF REFERENCE UNITS RANGE LAB HGBA1C 4.3-5.6 % High Hemoglobin A1c 11.7 LAB HBA0 mg/dL Est. Average Glucose 289 Result Comment: eAG: (Estimated average glucose) is a calculated value from HgbA1c and is herbicide service sales representative of the average blood glucose level in the last 2-3 month period. Performed By: #### FT4, CMP, LIPB, MG1, CBC, TSH, HBA1C #### [facility] [employer] [address] [place] [id number] CITLALLI SCREENING Observed: 01/24/2018 Status: F Source: [place] 1:31 PM [facility] REPOSITORY * * *Final Report* * * DATE OF EXAM: Jan 24 2018 1:31PM WO 0581 - [facility] SCREENING / PROCEDURE REASON: Encounter for screening mammogram for malignant neoplasm of breast * * * * Physician Interpretation * * * * RESULT: #[id number] - [facility] SCREENING BILATERAL DIGITAL SCREENING MAMMOGRAM WITH CAD: 01/24/2018 HISTORY: Screening Mammogram - patient reports NO breast symptoms /priors available for comparison. RESULT: TECHNIQUE: The study was acquired using full field digital technology and interpreted from soft copy. Current study was also evaluated with a Computer Aided Detection (CAD). Comparison is made to exam dated: 01/22/2017 mammogram - [facility]. There are scattered fibroglandular elements in both breasts. No significant masses, calcifications, or other findings are seen in either breast. There has been no significant interval change. IMPRESSION: NEGATIVE There is no mammographic evidence of malignancy. A 1 year screening mammogram is recommended. Vicki Moore M.D., jr/marisa:01/24/2018 16:04:51 [employer]scaping [employer] Groundskeeping Laborer: Teresa HERNANDEZ)(Josh), [facility] letter sent: Normal over 40 Mammogram BI-RADS: 1 Negative Supervisor Machine Setter: Marisa Transcribe Date/Time: Jan 24 2018 12:47P Dictated by: VICKI MOORE MD This examination was interpreted and the report reviewed and electronically signed by: VICKI MOORE MD on Jan 24 2018 4:04PM EST [id number] Observed: 01/24/2018 Status: COMPLETED Source: [place] 12:47 PM [facility] REPOSITORY HNO ID: [id number] Author: Ruthie Butler Service: (none) Author Type: (none) Type: Progress Notes Filed: 01/24/2018 12:47 PM Note Text: Radiology Service Progress Note PATIENT NAME: Shoshana Madden DATE OF SERVICE: January 24, 2018 TIME: 12:47 PM PATIENT IDENTITY VERIFICATION COMPLETED USING TWO (2) METHODS: Patient confirmed name verbally and Date of . PATIENT GENDER DATA: Female. status: : No status: NO. PATIENT RELEVANT IMPLANT DATA REVIEWED: Not Applicable RADIOLOGY DEPARTMENT: [facility] IV DATA: Not applicable SIGNED BY: Ruthie Butler January 24, 2018 12:47 PM CNPTOUTREACH Observed: 01/08/2018 Status: COMPLETED Source: [place] 12:00 AM [facility] REPOSITORY Patient Outreach ([facility]) MARYANNESHOSHANA MITCHELL ([id number]) 1960 F Date Time Provider Department 01/08/18 JING GARZA [facility] During your visit today, we recorded the following information about you: Allergies As of Date: 01/08/2018 Noted Allergy Reaction IODINE 02/23/2007 2 - Rash LATEX 11/08/2005 2 - Rash MORPHINE 03/28/2013 1 - Mental Status Change PENICILLIN G 01/23/2007 2 - Rash CODEINE 10/16/2007 11 - Vomiting CONTRAST DYE 08/09/2006 8 - GI Upset MAXIDEX (DEXAMETHASONE) 09/03/2007 16 - Unknown Comments: on 03/28/13 patient does not remember reaction nor medication Date Reviewed: 12/26/2017 Reviewed by: Urvashi Mclaughlin Ct - Fully Assessed Visit Diagnosis:Medication management [Z79.899] Order(s):ALBUMIN/CREAT RATIO RND UR [SQUACR] Order #: [id number] FUTURE Prescriptions as of 01/08/2018 Sig: CHOLECALCIFEROL (VITAMIN D3) * Take 1 capsule by mouth once * ESOMEPRAZOLE MAGNESIUM 40 MG * TAKE ONE CAPSULE BY MOUTH MARRY* HYDROCHLOROTHIAZIDE 12.5 MG C* TAKE TWO CAPSULES BY MOUTH EV* MAGNESIUM OXIDE 400 MG (241.3* TAKE ONE TABLET BY MOUTH TWIC* TRAMADOL 50 MG TABLET Take 1 tablet by mouth every * GABAPENTIN 600 MG TABLET Take 1 tablet by mouth three * X LORAZEPAM 0.5 MG TABLET Take 1 tablet by mouth once d* ATORVASTATIN 40 MG TABLET TAKE ONE TABLET BY MOUTH EVER* X INSULIN REGULAR HUMAN U-500 * Inject 30 units 30 minutes be* FUROSEMIDE 40 MG TABLET Take 1 tablet by mouth once d* LISINOPRIL 20 MG TABLET Take 1 tablet by mouth once d* CARVEDILOL 25 MG TABLET Take 1 tablet by mouth twice * PEN NEEDLE, DIABETIC 31 GAUGE* Use one needle per dose. 4 pe* X BUPROPION XL 300 MG 24 HR TAB Take 1 tablet by mouth once d* X DIGOXIN 125 MCG TABLET Take 1 tablet by mouth once d* EASY TOUCH INSULIN SYRINGE 0.* USE TWICE DAILY WITH insulin X WARFARIN 5 MG TABLET 7.5mg Tues,Thur,Sat and 5mg a* ALBUTEROL SULFATE HFA 90 MCG/* Inhale 2 Puffs as instructed * X BLOOD SUGAR DIAGNOSTIC STRIPS Test blood sugar 3 times mervin* NYSTATIN 100,000 UNIT/GRAM TO* Apply 1 application to affect* COMPOUNDED PRESCRIPTION Magnifer for insulin syringe MUPIROCIN 2 % TOPICAL OINTMENT Apply 1 application to affect* BLOOD-GLUCOSE METER KIT As directed NITROGLYCERIN 0.4 MG SUBLINGU* Dissolve under the tongue. O* DISPOSABLE GLOVES Use as needed for home care, * DICLOFENAC 1 % TOPICAL GEL Apply 2 g to affected area fo* DIAPER,BRIEF,ADULT,DISPOSABLE size 2X . uses 6 daily DX: * ASPIRIN 81 MG CHEWABLE TABLET Take 1 tablet by mouth once d* * NEBULIZER ACCESSORIES KIT Nebulizer accessory kit with * * LANCETS Test blood sugars 4 times earline* Problem List As Of Date 01/08/2018 Noted Resolved Obesity, unspecified [E66.9] INVALID FOR* Priority: H CORONARY ATHEROSCLER UNSPEC VESSEL [I25.10] INVALID FOR* Acute myocardial infarction, unspecified site, *INVALID FOR*07/24/2017 CONGESTIVE HEART FAILURE NOS [I50.9] INVALID FOR* Hyperlipemia, mixed [E78.2] INVALID FOR* More... Ulcer of heel and midfoot (HCC) [L97.409] INVALID FOR*07/24/2017 VARICOS LEG ULCER/INFLAM [I83.229, I83.219, L97*INVALID FOR* CARBUNCLE ARM (ABOVE WRIST) [L02.439, L02.429] INVALID FOR*07/24/2017 CARBUNCLE FLANK [L02.229] INVALID FOR*07/24/2017 Blood in stool [K92.1] INVALID FOR*07/24/2017 Atrial fibrillation [I48.91] INVALID FOR*10/18/2015 Asthma-chronic obstructive pulmonary disease ov* More... Contusion of foot [S90.30XA] INVALID FOR*07/24/2017 Hereditary and idiopathic peripheral neuropathy*INVALID FOR* Cannabis abuse, episodic [F12.10] INVALID FOR*07/24/2017 RECURR DEPR PSYCHOS-MILD [F33.0] INVALID FOR* Eating disorder, unspecified [F50.9] INVALID FOR*07/24/2017 CERVICALGIA [M54.2] Carbuncle and furuncle of buttock [L02.33] INVALID FOR*07/24/2017 Essential hypertension [I10] INVALID FOR* More... Dermatophytosis of nail [B35.1] INVALID FOR*07/24/2017 Unspecified local infection of skin and subcuta*INVALID FOR*07/24/2017 More... Other malaise and fatigue [R53.81, R53.83] INVALID FOR*07/24/2017 ABNORMALITY OF GAIT [R26.9] INVALID FOR* WEAKNESS MUSCLE [M62.81] INVALID FOR* Multiple and unspecified open wound of lower li*INVALID FOR*07/24/2017 RESTLESS LEGS SYNDROME [G25.81] INVALID FOR* Vitamin D deficiency [E55.9] INVALID FOR* Neoplasm of unspecified nature of bone, soft ti*INVALID FOR*07/24/2017 Cellulitis and abscess of leg, except foot [L03*INVALID FOR*07/24/2017 Other hammer toe (acquired) [M20.40] INVALID FOR*07/24/2017 Obstructive chronic bronchitis without exacerba*INVALID FOR*03/07/2017 More... 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 Type II or unspecified type diabetes mellitus w*INVALID FOR*04/20/2016 SUMMARY [V999.95] INVALID FOR*07/24/2017 Priority: Severe More... CAD (coronary artery disease) [I25.10] INVALID FOR* Priority: B More... AF (atrial fibrillation) [I48.91] INVALID FOR*04/16/2017 Priority: B More... HTN (hypertension) [I10] INVALID FOR*07/24/2017 Priority: D More... Heart failure/ Ischemic Cardiomyopathy [I50.9] INVALID FOR* More... Hypothyroid [E03.9] INVALID FOR*03/22/2016 Priority: F More... Venous ulcer of leg (HCC) [I83.009, L97.909] INVALID FOR*07/24/2017 More... VTE (Venous Thromboembolism) PPx [I82.90] INVALID FOR* More... SUMMARY [V999.95] INVALID FOR*12/29/2013 More... Cellulitis of lower limb [L03.119] INVALID FOR*07/24/2017 Priority: E More... Acute renal insufficiency [N28.9] INVALID FOR*07/24/2017 More... Chest pain at rest [R07.9] INVALID FOR*07/24/2017 More... Decubitus skin ulcer [L89.90] INVALID FOR*07/24/2017 More... Hyponatremia [E87.1] INVALID FOR*07/24/2017 More... Diarrhea [R19.7] INVALID FOR*07/24/2017 More... Debility [R53.81] INVALID FOR* CKD (chronic kidney disease) stage 3, GFR 30-59*INVALID FOR* Microalbuminuria [R80.9] Knee pain [M25.569] INVALID FOR* Peripheral vascular disease [I73.9] INVALID FOR* Priority: E More... Depression/ ? Bipolar Disorder [F32.9] INVALID FOR* Priority: G More... More... Oliguria [R34] INVALID FOR*06/18/2013 More... Atherosclerosis of nonautologous biological byp*INVALID FOR*07/24/2017 Wound infection after surgery [T81.49XA] INVALID FOR*07/24/2017 More... Shortness of breath [R06.02] INVALID FOR*07/24/2017 More... LBBB (left bundle branch block) [I44.7] INVALID FOR* Priority: D LV dysfunction [I51.9] INVALID FOR* Atherosclerosis of autologous vein bypass graft*INVALID FOR* Chronic anticoagulation [Z79.01] INVALID FOR* Priority: B More... Admission for therapeutic drug monitoring [Z51.*INVALID FOR*07/24/2017 Priority: B More... Heart failure, systolic, chronic [I50.22] INVALID FOR* Priority: A More... Cardiomyopathy, ischemic [I25.5] INVALID FOR* Biventricular ICD (implantable cardioverter-def*INVALID FOR* H/O: CVA (cerebrovascular accident) [Z86.73] INVALID FOR* MAX (acute kidney injury) (HCC) [N17.9] INVALID FOR*07/24/2017 More... DVT prophylaxis [[id number]] INVALID FOR* More... Heart failure, systolic, acute on chronic (HCC)*INVALID FOR*07/24/2017 Priority: B More... Discharge planning issues [Z02.9] INVALID FOR*03/05/2017 More... Presence of stent in right coronary artery [Z95*INVALID FOR* Presence of bare metal stent in LAD coronary ar*INVALID FOR* Chronic atrial fibrillation (HCC) [I48.2] INVALID FOR* Depressive disorder, not elsewhere classified [* Uncontrolled type 2 diabetes mellitus with diab*INVALID FOR* Morbid obesity due to excess calories (HCC) [E6*INVALID FOR*04/16/2017 History of right above knee amputation (HCC) [Z* More... Pleural effusion, bilateral [J90] INVALID FOR* More... Chronic renal insufficiency [N18.9] INVALID FOR* Endometrial cancer (HCC) [C54.1] INVALID FOR* More... Pulmonary HTN [I27.20] INVALID FOR* GERD (gastroesophageal reflux disease) [K21.9] INVALID FOR* Uterine cancer (HCC) [C55] INVALID FOR* More... Encounter Status:Closed by SINDI SHEPHERDUSEAris on 07/12/18 PROGRESS Observed: 12/26/2017 Status: COMPLETED Source: [place] 4:04 PM [facility] REPOSITORY [facility] ID: [id number] Author: Urvashi Rivas Service: (none) Author Type: (none) Type: Progress Notes Filed: 12/26/2017 4:04 PM Note Text: Radiology Service Progress Note PATIENT NAME: Shoshana Madden DATE OF SERVICE: December 26, 2017 TIME: 4:04 PM PATIENT IDENTITY VERIFICATION COMPLETED USING TWO (2) METHODS: Patient confirmed name verbally and Date of . PATIENT GENDER DATA: Female. status: : No status: NO. PATIENT RELEVANT IMPLANT DATA REVIEWED: Not Applicable RADIOLOGY DEPARTMENT: CT; Exam(s) Completed: Abdomen/Pelvis PERIPHERAL IV DATA: Not applicable SIGNED BY: Urvashi Rivas December 26, 2017 4:[address] ABD/PEL WO IVCON Observed: 12/26/2017 Status: F Source: [place] 3:14 PM [facility] REPOSITORY * * *Final Report* * * DATE OF EXAM: Dec 26 2017 3:14PM [facility] 0531 - CT ABD/PEL WO IVCON / PROCEDURE REASON: Presence of other vascular implants and grafts * * * * Physician Interpretation * * * * EXAMINATION: CT ABDOMEN AND PELVIS WITHOUT IV CONTRAST CLINICAL HISTORY: Endometrial carcinoma Presence of other vascular implants and grafts TECHNIQUE: Non-IV contrast imaging of the abdomen and pelvis was performed using standard technique, scanning from just above the dome of the diaphragm to the symphysis pubis. Unenhanced imaging is limited for the evaluation of some intra-abdominal and pelvic pathology. MQ: [id number]_3 Contrast: IV: None No oral contrast CT Radiation dose: Integrated Dose-length product (DLP) for this visit = 1284 mGy*cm. CT Dose Reduction Employed: Automated exposure control (AEC) COMPARISON: 02/12/2017. RESULT: The study is limited due to patient's large body habitus with streaky artifact decreased image resolution. Abdomen / Pelvis: Liver: Unremarkable. Biliary: Cholecystectomy Spleen: No splenomegaly. Pancreas: Unremarkable. Adrenals: 2 x 1.3 cm left adrenal nodule, series 3:56, unchanged.. Kidneys: No calculus, hydronephrosis or finding to suggest a cyst or mass in the unenhanced kidney. GI Tract: No bowel dilation. Normal appendix. No diverticulosis. Lymph Nodes: Borderline prominent lymph nodes on series 3: 1.3 cm in short axis at the left para-aortic area, image 97, unchanged; 1 cm in short axis in the right external iliac chain, image 189, unchanged; 1 cm in short axis in the left external iliac chain, image 195, unchanged. Mesentery/peritoneum: No ascites. Retroperitoneum: No mass. Vasculature: Arterial atherosclerotic disease without aneurysm. Infrarenal inferior vena cava in place. Pelvis: No mass or ascites. Visualized slightly distended urinary bladder shows no significant abnormality. Intrauterine device within the uterus. Bones/Soft Tissues: No acute abnormality. Lower thorax: Small bilateral pleural effusion with basal atelectasis, decreased on the right side, unchanged on the left side. IMPRESSION: Limited study. Stable left adrenal nodule. Stable borderline prominent adenopathy. Interval placement of intrauterine device in the uterus. Small bilateral pleural effusions with basal atelectasis. Supervisor Machine Setter: PSCB Transcribe Date/Time: Dec 29 2017 9:50A Dictated by : NEVA TURK MD This examination was interpreted and the report reviewed and electronically signed by: NEVA TURK MD on Dec 29 2017 10:08AM EST [id number] PROGRESS Observed: 12/19/2017 Status: COMPLETED Source: [place] 2:55 PM [facility] REPOSITORY [facility] ID: [id number] Author: Radha Saldaña RN Service: (none) Author Type: (none) Type: Progress Notes Filed: 12/19/2017 2:56 PM Note Text: per written order by dr garza she agrees with information below, encounter is being closed PROGRESS Observed: 12/19/2017 Status: COMPLETED Source: [place] 12:51 PM [facility] REPOSITORY [facility] ID: [id number] Author: Radha Saldaña RN Service: (none) Author Type: (none) Type: Progress Notes Filed: 12/19/2017 12:53 PM Note Text: patient had inr completed at [facility] patients inr is 2.7 (patients inr range is 2.0-3.0) patient is currently taking 7.5mg Tues,Thurs Sat and 5mg all other days patients last dose change was on 12/26/16 due to a low level 1.6 (dose at that time was 7.5mg Tues,Thurs and 5mg all other days) patient has had no changes in medication and no missed doses and no change in diet Advised patient to continue on the same dose(s) and that they would only be contacted regarding dosage and follow up instructions after review with provider, if a change is needed. Written instructions given and patient verbalized understanding. Presently scheduled in 5 weeks (01/25/18 - appt with pcp that day) for follow up INR. PROGRESS Observed: 12/05/2017 Status: COMPLETED Source: [place] 2:58 PM [facility] REPOSITORY [facility] ID: [id number] Author: Radha Saldaña RN Service: (none) Author Type: (none) Type: Progress Notes Filed: 12/05/2017 2:58 PM Note Text: per written order by dr garza she agrees with information below, encounter is being closed PROGRESS Observed: 12/05/2017 Status: COMPLETED Source: [place] 1:12 PM [facility] REPOSITORY [facility] ID: [id number] Author: Radha Saldaña RN Service: (none) Author Type: (none) Type: Progress Notes Filed: 12/05/2017 1:13 PM Note Text: patient had inr completed at [facility] patients inr is 1.9 (patients inr range is 2.0-3.0) patient is currently taking 7.5mg Tues,Thurs,Sat and 5mg all other days patients last dose change was on 12/26/16 due to a low level of 1.6 patient has had no changes in medication and no missed doses and no change in diet Advised patient to continue on the same dose(s) and that they would only be contacted regarding dosage and follow up instructions after review with provider, if a change is needed. Written instructions given and patient verbalized understanding. Presently scheduled in 2 weeks (12/19/17) for follow up INR. HOSP Observed: 12/03/2017 Status: COMPLETED Source: [place] 12:00 AM [facility] REPOSITORY Patient Update ([facility]) SHOSHANA MADDEN ([id number]) 1960 F Date Time Provider Department 12/03/17 TALI FELIX ([facility]) [facility] During your visit today, we recorded the following information about you: Allergies As of Date: 12/03/2017 Noted Allergy Reaction IODINE 02/23/2007 2 - Rash LATEX 11/08/2005 2 - Rash MORPHINE 03/28/2013 1 - Mental Status Change PENICILLIN G 01/23/2007 2 - Rash CODEINE 10/16/2007 11 - Vomiting CONTRAST DYE 08/09/2006 8 - GI Upset MAXIDEX (DEXAMETHASONE) 09/03/2007 16 - Unknown Comments: on 03/28/13 patient does not remember reaction nor medication Date Reviewed: 11/08/2017 Reviewed by: Yessica Esposito Ma - Fully Assessed Order(s):SURGICAL REQUEST - ELECTIVE [[id number]] Order #: [id number]: 1 Prescriptions as of 12/03/2017 Sig: LORAZEPAM 0.5 MG TABLET Take 1 tablet by mouth once d* TRAMADOL 50 MG TABLET Take 1 tablet by mouth every * GABAPENTIN 600 MG TABLET Take 1 tablet by mouth three * ATORVASTATIN 40 MG TABLET TAKE ONE TABLET BY MOUTH EVER* INSULIN REGULAR HUMAN U-500 * Inject 30 units 30 minutes be* FUROSEMIDE 40 MG TABLET Take 1 tablet by mouth once d* LISINOPRIL 20 MG TABLET Take 1 tablet by mouth once d* CARVEDILOL 25 MG TABLET Take 1 tablet by mouth twice * PEN NEEDLE, DIABETIC 31 GAUGE* Use one needle per dose. 4 pe* HYDROCHLOROTHIAZIDE 12.5 MG C* TAKE TWO CAPSULES BY MOUTH ON* BUPROPION XL 300 MG 24 HR TAB Take 1 tablet by mouth once d* DIGOXIN 125 MCG TABLET Take 1 tablet by mouth once d* EASY TOUCH INSULIN SYRINGE 0.* USE TWICE DAILY WITH insulin WARFARIN 5 MG TABLET 7.5mg Tues,Thur,Sat and 5mg a* CHOLECALCIFEROL (VITAMIN D3) * Take 1 capsule by mouth once * MAGNESIUM OXIDE 400 MG TABLET Take 1 tablet by mouth twice * ESOMEPRAZOLE MAGNESIUM 40 MG * Take 1 capsule by mouth once * ALBUTEROL SULFATE HFA 90 MCG/* Inhale 2 Puffs as instructed * BLOOD SUGAR DIAGNOSTIC STRIPS Test blood sugar 3 times mervin* NYSTATIN 100,000 UNIT/GRAM TO* Apply 1 application to affect* COMPOUNDED PRESCRIPTION Magnifer for insulin syringe MUPIROCIN 2 % TOPICAL OINTMENT Apply 1 application to affect* BLOOD-GLUCOSE METER KIT As directed NITROGLYCERIN 0.4 MG SUBLINGU* Dissolve under the tongue. O* DISPOSABLE GLOVES Use as needed for home care, * DICLOFENAC 1 % TOPICAL GEL Apply 2 g to affected area fo* DIAPER,BRIEF,ADULT,DISPOSABLE size 2X . uses 6 daily DX: * ASPIRIN 81 MG CHEWABLE TABLET Take 1 tablet by mouth once d* * NEBULIZER ACCESSORIES KIT Nebulizer accessory kit with * * LANCETS Test blood sugars 4 times earline* Problem List As Of Date 12/03/2017 Noted Resolved Obesity, unspecified [E66.9] INVALID FOR* Priority: H CORONARY ATHEROSCLER UNSPEC VESSEL [I25.10] INVALID FOR* Acute myocardial infarction, unspecified site, *INVALID FOR*07/24/2017 CONGESTIVE HEART FAILURE NOS [I50.9] INVALID FOR* Hyperlipemia, mixed [E78.2] INVALID FOR* More... Ulcer of heel and midfoot (HCC) [L97.409] INVALID FOR*07/24/2017 VARICOS LEG ULCER/INFLAM [I83.229, I83.219, L97*INVALID FOR* CARBUNCLE ARM (ABOVE WRIST) [L02.429] INVALID FOR*07/24/2017 CARBUNCLE FLANK [L02.229] INVALID FOR*07/24/2017 Blood in stool [K92.1] INVALID FOR*07/24/2017 Atrial fibrillation [I48.91] INVALID FOR*10/18/2015 Asthma-chronic obstructive pulmonary disease ov* More... Contusion of foot [S90.30XA] INVALID FOR*07/24/2017 Hereditary and idiopathic peripheral neuropathy*INVALID FOR* Cannabis abuse, episodic [F12.10] INVALID FOR*07/24/2017 RECURR DEPR PSYCHOS-MILD [F33.0] INVALID FOR* Eating disorder, unspecified [F50.9] INVALID FOR*07/24/2017 CERVICALGIA [M54.2] Carbuncle and furuncle of buttock [L02.33] INVALID FOR*07/24/2017 Essential hypertension [I10] INVALID FOR* More... Dermatophytosis of nail [B35.1] INVALID FOR*07/24/2017 Unspecified local infection of skin and subcuta*INVALID FOR*07/24/2017 More... Other malaise and fatigue [R53.81, R53.83] INVALID FOR*07/24/2017 ABNORMALITY OF GAIT [R26.9] INVALID FOR* WEAKNESS MUSCLE [M62.81] INVALID FOR* Multiple and unspecified open wound of lower li*INVALID FOR*07/24/2017 RESTLESS LEGS SYNDROME [G25.81] INVALID FOR* VITAMIN D DEFICIENCY NOS [E55.9] INVALID FOR* Neoplasm of unspecified nature of bone, soft ti*INVALID FOR*07/24/2017 Cellulitis and abscess of leg, except foot [L03*INVALID FOR*07/24/2017 Other hammer toe (acquired) [M20.40] INVALID FOR*07/24/2017 Obstructive chronic bronchitis without exacerba*INVALID FOR*03/07/2017 More... 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 Type II or unspecified type diabetes mellitus w*INVALID FOR*04/20/2016 SUMMARY [V999.95] INVALID FOR*07/24/2017 Priority: Severe More... CAD (coronary artery disease) [I25.10] INVALID FOR* Priority: B More... AF (atrial fibrillation) [I48.91] INVALID FOR*04/16/2017 Priority: B More... HTN (hypertension) [I10] INVALID FOR*07/24/2017 Priority: D More... Heart failure/ Ischemic Cardiomyopathy [I50.9] INVALID FOR* More... Hypothyroid [E03.9] INVALID FOR*03/22/2016 Priority: F More... Venous ulcer of leg (HCC) [I83.009, L97.909] INVALID FOR*07/24/2017 More... VTE (Venous Thromboembolism) PPx [I82.90] INVALID FOR* More... SUMMARY [V999.95] INVALID FOR*12/29/2013 More... Cellulitis of lower limb [L03.119] INVALID FOR*07/24/2017 Priority: E More... Acute renal insufficiency [N28.9] INVALID FOR*07/24/2017 More... Chest pain at rest [R07.9] INVALID FOR*07/24/2017 More... Decubitus skin ulcer [L89.90] INVALID FOR*07/24/2017 More... Hyponatremia [E87.1] INVALID FOR*07/24/2017 More... Diarrhea [R19.7] INVALID FOR*07/24/2017 More... Debility [R53.81] INVALID FOR* CKD (chronic kidney disease) stage 3, GFR 30-59*INVALID FOR* Microalbuminuria [R80.9] Knee pain [M25.569] INVALID FOR* Peripheral vascular disease [I73.9] INVALID FOR* Priority: E More... Depression/ ? Bipolar Disorder [F32.9] INVALID FOR* Priority: G More... More... Oliguria [R34] INVALID FOR*06/18/2013 More... Atherosclerosis of nonautologous biological byp*INVALID FOR*07/24/2017 Wound infection after surgery [T81.4XXA] INVALID FOR*07/24/2017 More... Shortness of breath [R06.02] INVALID FOR*07/24/2017 More... LBBB (left bundle branch block) [I44.7] INVALID FOR* Priority: D LV dysfunction [I51.9] INVALID FOR* Atherosclerosis of autologous vein bypass graft*INVALID FOR* Chronic anticoagulation [Z79.01] INVALID FOR* Priority: B More... Admission for therapeutic drug monitoring [Z51.*INVALID FOR*07/24/2017 Priority: B More... Heart failure, systolic, chronic [I50.22] INVALID FOR* Priority: A More... Cardiomyopathy, ischemic [I25.5] INVALID FOR* Biventricular ICD (implantable cardioverter-def*INVALID FOR* H/O: CVA (cerebrovascular accident) [Z86.73] INVALID FOR* MAX (acute kidney injury) (HCC) [N17.9] INVALID FOR*07/24/2017 More... DVT prophylaxis [[id number]] INVALID FOR* More... Heart failure, systolic, acute on chronic (HCC)*INVALID FOR*07/24/2017 Priority: B More... Discharge planning issues [Z02.9] INVALID FOR*03/05/2017 More... Presence of stent in right coronary artery [Z95*INVALID FOR* Presence of bare metal stent in LAD coronary ar*INVALID FOR* Chronic atrial fibrillation (HCC) [I48.2] INVALID FOR* Depressive disorder, not elsewhere classified [* Uncontrolled type 2 diabetes mellitus with diab*INVALID FOR* Morbid obesity due to excess calories (HCC) [E6*INVALID FOR*04/16/2017 History of right above knee amputation (HCC) [Z* More... Pleural effusion, bilateral [J90] INVALID FOR* More... Chronic renal insufficiency [N18.9] INVALID FOR* Endometrial cancer (HCC) [C54.1] INVALID FOR* More... Pulmonary HTN [I27.20] INVALID FOR* GERD (gastroesophageal reflux disease) [K21.9] INVALID FOR* Encounter Status:Closed by TALI FELIX CNP on 12/03/17 CNCO Observed: 11/30/2017 Status: COMPLETED Source: [place] 12:00 AM [facility] REPOSITORY Letter Text [facility] [place] [address] [facility] [address] Dept: [phone] Dept Pepe Ordonez MD November 30, 2017 Shoshana Madden [address] [facility] [address] 1960 Dear Shoshana Madden, We missed seeing you for your scheduled appointment with Dr. Ordonez on 11/29/17. Our goal is to offer the best possible care to our patients, so we are concerned when you are unable to keep a scheduled appointment. Please call us at [phone] so that we can reschedule your appointment for a day and time that will work for you. If you find it difficult to keep your appointment, please notify our office at least 24 hours in advance so that we may reschedule your appointment. We are glad that you have chosen [facility] for your cardiovascular needs and hope to continue serving you in the future. Sincerely, Pepe Ordonez MD (Signed electronically to expedite mailing) PROGRESS Observed: 11/08/2017 Status: COMPLETED Source: [place] 1:56 PM [facility] REPOSITORY [facility] ID: [id number] Author: Sue Garzon Service: (none) Author Type: Physician Type: Progress Notes Filed: 11/08/2017 2:05 PM Note Text: Subjective: Patient presents to clinic c/o painful toenails. They state that the nails are especially painful with shoe gear and pressure. Patient has had pain in her left foot in the past but that pain has now since resolved with ultram. Patient admits to being diabetic and states that their blood sugar was 142 mg/dL this AM. No other pedal complaints at this time. Patient states no change in medications or medical history since last visit. Objective: Patient presents to clinic ambulating in diabetic shoes on left foot Vasc: DP and PT pulses are palpable left. CFT is less than 5 seconds left. Skin temperature is warm to cool proximal to distal bilateral. There is mild edema or varicosities noted. Neuro: Protective sensation is absent to the foot and toes when tested with the 5.07 SWM left. Vibratory sensation is absent at the hallux IPJ left. The hallux is downgoing bilateral. Derm: Nails 1-5 left are discolored-yellow, thick, crumbly, dystrophic and with subungal debris. Skin is of normal turgor, texture and hair growth is decreased left. There are no hyperkeratosis, ulcerations, scars, verruca or other lesions noted. Assessment: (B35.1) Onychomycosis (primary encounter diagnosis) (E11.49) Other diabetic neurological complication associated with type 2 diabetes mellitus (HCC) Plan: Patient was seen and evaluated. Nails 1-5 left were debrided in length and thickness. Patient was instructed on the continued importance of diabetic foot care along with proper diet and keeping their blood sugar under control to prevent complications. Patient is to RTC in 3-4 months. Sue Garzon DPM PROGRESS Observed: 11/08/2017 Status: COMPLETED Source: [place] 1:53 PM [facility] REPOSITORY [facility] ID: [id number] Author: Yessica Esposito Ma Service: (none) Author Type: (none) Type: Progress Notes Filed: 11/08/2017 2:05 PM Note Text: Patient reports home blood glucose reading at 142 mg/dL before breakfast today. PROGRESS Observed: 11/07/2017 Status: COMPLETED Source: [place] 3:56 PM [facility] REPOSITORY [facility] ID: [id number] Author: Radha Saldaña RN Service: (none) Author Type: (none) Type: Progress Notes Filed: 11/07/2017 3:56 PM Note Text: per written order by dr garza she agrees with information PROGRESS Observed: 11/07/2017 Status: COMPLETED Source: [place] 2:44 PM [facility] REPOSITORY [facility] ID: [id number] Author: Radha Saldaña RN Service: (none) Author Type: (none) Type: Progress Notes Filed: 11/07/2017 2:45 PM Note Text: patient had inr completed at [facility] patients inr is 2.0 (patients inr range is 2.0-3.0) patient is currently taking 7.5mg Tues,Thur,Sat and 5mg all other days patients last dose change unsure at this time patient has had no changes in medication and no change in diet Advised patient to continue on the same dose(s) and that they would only be contacted regarding dosage and follow up instructions after review with provider, if a change is needed. Written instructions given and patient verbalized understanding. Presently scheduled in 4 weeks (12/05/17) for follow up INR. PROGRESS Observed: 10/25/2017 Status: COMPLETED Source: [place] 4:38 PM [facility] REPOSITORY HNO ID: [id number] Author: Jean Claude Mccarthy RN Service: (none) Author Type: (none) Type: Progress Notes Filed: 10/25/2017 4:39 PM Note Text: Per Dr. Garza: agree with below. PROGRESS Observed: 10/25/2017 Status: COMPLETED Source: [place] 1:41 PM [facility] REPOSITORY HNO ID: [id number] Author: Jean Claude Mccarthy RN Service: (none) Author Type: (none) Type: Progress Notes Filed: 10/25/2017 1:42 PM Note Text: Patient had INR completed at [facility] Patient's INR is 2.0 Patient is currently taking 7.5 mg Tues Thurs Sat, and 5 mg all other days Patient's last dose change was 02/27/17 due to low INR Patient has had no medication and no change in diet. Advised patient to continue on same dose and they would only be contacted with different instructions after provider review. Written instructions were given to patient and patient verbalized understanding. Presently, patient has been scheduled for 11/08/17 for INR follow up. HOSP Observed: 10/25/2017 Status: COMPLETED Source: [place] 1:15 PM [facility] REPOSITORY Anticoagulation Visit (COUMWS) MARYANNESHOSHANA Jaime ([id number]) 1960 F Date Time Provider Department 10/25/17 1:15 PM ANTICOAG [facility] COUMWS During your visit today, we recorded the following information about you: Jean Claude Mccarthy RN 10/25/2017 1:42 PM Signed Patient had INR completed at [facility] Patient's INR is 2.0 Patient is currently taking 7.5 mg Tues Th Sat, and 5 mg all other days Patient's last dose change was 02/27/17 due to low INR Patient has had no medication and no change in diet. Advised patient to continue on same dose and they would only be contacted with different instructions after provider review. Written instructions were given to patient and patient verbalized understanding. Presently, patient has been scheduled for 11/08/17 for INR follow up. Jean Claude Mccarthy RN 10/25/2017 4:[address] Garza: agree with below. Referring Provider: SELF [[id number]] Allergies As of Date: 10/25/2017 Noted Allergy Reaction IODINE 02/23/2007 2 - Rash LATEX 11/08/2005 2 - Rash MORPHINE 03/28/2013 1 - Mental Status Change PENICILLIN G 01/23/2007 2 - Rash CODEINE 10/16/2007 11 - Vomiting CONTRAST DYE 08/09/2006 8 - GI Upset MAXIDEX (DEXAMETHASONE) 09/03/2007 16 - Unknown Comments: on 03/28/13 patient does not remember reaction nor medication Date Reviewed: 10/17/2017 Reviewed by: Bam Das - Fully Assessed Reason for Visit: Coumadin/INR [1207] Visit Diagnoses:Chronic anticoagulation [Z79.01] Chronic atrial fibrillation (HCC) [I48.2] Order(s):INR (POC) [2120984] Order #: [id number]. #:[id number] Prescriptions as of 10/25/2017 Sig: LORAZEPAM 0.5 MG TABLET Take 1 tablet by mouth once d* TRAMADOL 50 MG TABLET Take 1 tablet by mouth every * DOXYCYCLINE MONOHYDRATE 100 M* Take 1 capsule by mouth twice* GABAPENTIN 600 MG TABLET Take 1 tablet by mouth three * ATORVASTATIN 40 MG TABLET TAKE ONE TABLET BY MOUTH EVER* INSULIN REGULAR HUMAN U-500 * Inject 30 units 30 minutes be* FUROSEMIDE 40 MG TABLET Take 1 tablet by mouth once d* LISINOPRIL 20 MG TABLET Take 1 tablet by mouth once d* CARVEDILOL 25 MG TABLET Take 1 tablet by mouth twice * PEN NEEDLE, DIABETIC 31 GAUGE* Use one needle per dose. 4 pe* HYDROCHLOROTHIAZIDE 12.5 MG C* TAKE TWO CAPSULES BY MOUTH ON* BUPROPION XL 300 MG 24 HR TAB Take 1 tablet by mouth once d* DIGOXIN 125 MCG TABLET Take 1 tablet by mouth once d* EASY TOUCH INSULIN SYRINGE 0.* USE TWICE DAILY WITH insulin WARFARIN 5 MG TABLET 7.5mg Tulaila,Charityur,Sat and 5mg a* CHOLECALCIFEROL (VITAMIN D3) * Take 1 capsule by mouth once * MAGNESIUM OXIDE 400 MG TABLET Take 1 tablet by mouth twice * ESOMEPRAZOLE MAGNESIUM 40 MG * Take 1 capsule by mouth once * ALBUTEROL SULFATE HFA 90 MCG/* Inhale 2 Puffs as instructed * BLOOD SUGAR DIAGNOSTIC STRIPS Test blood sugar 3 times mervin* NYSTATIN 100,000 UNIT/GRAM TO* Apply 1 application to affect* COMPOUNDED PRESCRIPTION Magnifer for insulin syringe MUPIROCIN 2 % TOPICAL OINTMENT Apply 1 application to affect* BLOOD-GLUCOSE METER KIT As directed NITROGLYCERIN 0.4 MG SUBLINGU* Dissolve under the tongue. O* DISPOSABLE GLOVES Use as needed for home care, * DICLOFENAC 1 % TOPICAL GEL Apply 2 g to affected area fo* DIAPER,BRIEF,ADULT,DISPOSABLE size 2X . uses 6 daily DX: * ASPIRIN 81 MG CHEWABLE TABLET Take 1 tablet by mouth once d* * NEBULIZER ACCESSORIES KIT Nebulizer accessory kit with * * LANCETS Test blood sugars 4 times earline* Problem List As Of Date 10/25/2017 Noted Resolved Obesity, unspecified [E66.9] INVALID FOR* Priority: H CORONARY ATHEROSCLER UNSPEC VESSEL [I25.10] INVALID FOR* Acute myocardial infarction, unspecified site, *INVALID FOR*07/24/2017 CONGESTIVE HEART FAILURE NOS [I50.9] INVALID FOR* Hyperlipemia, mixed [E78.2] INVALID FOR* More... Ulcer of heel and midfoot (HCC) [L97.409] INVALID FOR*07/24/2017 VARICOS LEG ULCER/INFLAM [I83.229, I83.219] INVALID FOR* CARBUNCLE ARM (ABOVE WRIST) [L02.429] INVALID FOR*07/24/2017 CARBUNCLE FLANK [L02.229] INVALID FOR*07/24/2017 Blood in stool [K92.1] INVALID FOR*07/24/2017 Atrial fibrillation [I48.91] INVALID FOR*10/18/2015 Asthma-chronic obstructive pulmonary disease ov* More... Contusion of foot [S90.30XA] INVALID FOR*07/24/2017 Hereditary and idiopathic peripheral neuropathy*INVALID FOR* Cannabis abuse, episodic [F12.10] INVALID FOR*07/24/2017 RECURR DEPR PSYCHOS-MILD [F33.0] INVALID FOR* Eating disorder, unspecified [F50.9] INVALID FOR*07/24/2017 CERVICALGIA [M54.2] Carbuncle and furuncle of buttock [L02.33] INVALID FOR*07/24/2017 Essential hypertension [I10] INVALID FOR* More... Dermatophytosis of nail [B35.1] INVALID FOR*07/24/2017 Unspecified local infection of skin and subcuta*INVALID FOR*07/24/2017 More... Other malaise and fatigue [R53.81, R53.83] INVALID FOR*07/24/2017 ABNORMALITY OF GAIT [R26.9] INVALID FOR* WEAKNESS MUSCLE [M62.81] INVALID FOR* Multiple and unspecified open wound of lower li*INVALID FOR*07/24/2017 RESTLESS LEGS SYNDROME [G25.81] INVALID FOR* VITAMIN D DEFICIENCY NOS [E55.9] INVALID FOR* Neoplasm of unspecified nature of bone, soft ti*INVALID FOR*07/24/2017 Cellulitis and abscess of leg, except foot [L03*INVALID FOR*07/24/2017 Other hammer toe (acquired) [M20.40] INVALID FOR*07/24/2017 Obstructive chronic bronchitis without exacerba*INVALID FOR*03/07/2017 More... 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 Type II or unspecified type diabetes mellitus w*INVALID FOR*04/20/2016 SUMMARY [V999.95] INVALID FOR*07/24/2017 Priority: Severe More... CAD (coronary artery disease) [I25.10] INVALID FOR* Priority: B More... AF (atrial fibrillation) [I48.91] INVALID FOR*04/16/2017 Priority: B More... HTN (hypertension) [I10] INVALID FOR*07/24/2017 Priority: D More... Heart failure/ Ischemic Cardiomyopathy [I50.9] INVALID FOR* More... Hypothyroid [E03.9] INVALID FOR*03/22/2016 Priority: F More... Venous ulcer of leg (HCC) [I83.009] INVALID FOR*07/24/2017 More... VTE (Venous Thromboembolism) PPx [I82.90] INVALID FOR* More... SUMMARY [V999.95] INVALID FOR*12/29/2013 More... Cellulitis of lower limb [L03.119] INVALID FOR*07/24/2017 Priority: E More... Acute renal insufficiency [N28.9] INVALID FOR*07/24/2017 More... Chest pain at rest [R07.9] INVALID FOR*07/24/2017 More... Decubitus skin ulcer [L89.90] INVALID FOR*07/24/2017 More... Hyponatremia [E87.1] INVALID FOR*07/24/2017 More... Diarrhea [R19.7] INVALID FOR*07/24/2017 More... Debility [R53.81] INVALID FOR* CKD (chronic kidney disease) stage 3, GFR 30-59*INVALID FOR* Microalbuminuria [R80.9] Knee pain [M25.569] INVALID FOR* Peripheral vascular disease [I73.9] INVALID FOR* Priority: E More... Depression/ ? Bipolar Disorder [F32.9] INVALID FOR* Priority: G More... More... Oliguria [R34] INVALID FOR*06/18/2013 More... Atherosclerosis of nonautologous biological byp*INVALID FOR*07/24/2017 Wound infection after surgery [T81.4XXA] INVALID FOR*07/24/2017 More... Shortness of breath [R06.02] INVALID FOR*07/24/2017 More... LBBB (left bundle branch block) [I44.7] INVALID FOR* Priority: D LV dysfunction [I51.9] INVALID FOR* Atherosclerosis of autologous vein bypass graft*INVALID FOR* Chronic anticoagulation [Z79.01] INVALID FOR* Priority: B More... Admission for therapeutic drug monitoring [Z51.*INVALID FOR*07/24/2017 Priority: B More... Heart failure, systolic, chronic [I50.22] INVALID FOR* Priority: A More... Cardiomyopathy, ischemic [I25.5] INVALID FOR* Biventricular ICD (implantable cardioverter-def*INVALID FOR* H/O: CVA (cerebrovascular accident) [Z86.73] INVALID FOR* MAX (acute kidney injury) (HCC) [N17.9] INVALID FOR*07/24/2017 More... DVT prophylaxis [SPY0643] INVALID FOR* More... Heart failure, systolic, acute on chronic (HCC)*INVALID FOR*07/24/2017 Priority: B More... Discharge planning issues [Z02.9] INVALID FOR*03/05/2017 More... Presence of stent in right coronary artery [Z95*INVALID FOR* Presence of bare metal stent in LAD coronary ar*INVALID FOR* Chronic atrial fibrillation (HCC) [I48.2] INVALID FOR* Depressive disorder, not elsewhere classified [* Uncontrolled type 2 diabetes mellitus with diab*INVALID FOR* Morbid obesity due to excess calories (HCC) [E6*INVALID FOR*04/16/2017 History of right above knee amputation (HCC) [Z* More... Pleural effusion, bilateral [J90] INVALID FOR* More... Chronic renal insufficiency [N18.9] INVALID FOR* Endometrial cancer (HCC) [C54.1] INVALID FOR* More... Pulmonary HTN [I27.20] INVALID FOR* GERD (gastroesophageal reflux disease) [K21.9] INVALID FOR* Encounter Status:Closed by JEAN CLAUDE MCCARTHY RN on 10/25/17 ALLERGIES ALLERGIES DATE TYPE / CODE NAME / CODE REACTION SEVERITY SOURCE 03/11/2018 Drug Penicillins/[id number] Swelling Unknown Di Allergy/416 476(RXNORM) Community 423143([facility] ED CT) Repository 03/11/2018 Drug iodine/U012340027(R Other Unknown [place] Allergy/416 XNORM) Community 595015([facility] ED CT) Repository 03/11/2018 Drug morphine/[id number] Other Unknown [place] Allergy/416 (RXNORM) Community 381266([facility] ED CT) Repository 03/11/2018 Drug codeine/I967231933( Other Unknown Di Allergy/416 RXNORM) Community 089729([facility] ED CT) Repository 03/11/2018 Drug dexamethasone/F0060 Other Unknown [place] Allergy/416 91886(RXNORM) Community 409528([facility] ED CT) Repository 03/11/2018 Drug latex/F922624775(RX Itching Unknown Di Allergy/416 NORM) Community 368602([facility] ED CT) Repository 03/28/2013 DRUG MORPHINE Mental Chg [facility] INGREDI/419 Main [place] 322729(SNOM Repository ED CT) 10/16/2007 DRUG CODEINE Vomiting Low [facility] INGREDI/419 Main [place] 660202(SNOM Repository ED CT) 09/03/2007 DRUG DEXAMETHASONE UNKNOWN Low [facility] INGREDI/419 Main [place] 427514(SNOM Repository ED CT) 02/23/2007 DRUG IODINE RASH Med [facility] INGREDI/419 Main [place] 917174(SNOM Repository ED CT) 01/23/2007 DRUG PENICILLIN G RASH [facility] INGREDI/419 Main [place] 769819(SNOM Repository ED CT) 08/09/2006 DRUG CONTRAST DYE GI UPSET Low [facility] INGREDI/419 Main [place] 131738(SNOM Repository ED CT) 11/08/2005 DRUG LATEX RASH Med [facility] INGREDI/419 Main [place] 152636(SNOM Repository ED CT) NG/79154528 IODINE [facility]) Repository NG/86814759 LATEX [facility]) Repository NG/75715863 MORPHINE [facility] 6(SNOMED Health System CT) Repository NG/34493469 PENICILLIN G [facility] 6([facility] [employer] [facility] CT) Repository NG/84016578 CODEINE [facility] 6([facility] [employer] [facility] CT) Repository NG/76831532 CONTRAST DYE [facility] 6([facility] System CT) Repository NG/71355376 DEXAMETHASONE [facility] 6([facility] System CT) Repository ENCOUNTERS ENCOUNTERS ADMIT/DISCHARGE ACCOUNT NUMBER ADMITTING ENCOUNTER LOCATION SOURCE CLASS 10/17/2018/10/17/19 [id number] Ambulatory [place] [facility] [place] Repository 10/17/2018/10/18/19 [id number] Ambulatory [place] [facility] Main [place] Repository 09/18/2018/09/18/20 [id number] Emergency [address] ding:ED Repository 09/13/2018/09/13/20 [id number] Ambulatory [place] [facility] Main [place] Repository 09/13/2018/09/16/20 [id number] Ambulatory [place] [facility] [place] Repository 08/19/2018/08/23/20 [id number] Ambulatory [place] [facility] [place] Repository 08/09/2018/08/13/20 [id number] Ambulatory [place] [facility] [place] Repository 08/09/2018/08/13/20 [id number] Ambulatory [place] [facility] [place] Repository 08/05/2018/08/05/20 [id number] Ambulatory [place] [facility] [place] Repository 08/05/2018/08/16/20 [id number] Ambulatory [facility] [place] Repository 07/17/2018/07/17/20 [id number] Ambulatory [facility] [place] Repository 07/17/2018/07/17/20 [id number] Ambulatory [facility] [place] Repository 07/09/2018/07/10/20 [id number] Ambulatory [facility] [place] Repository 06/07/2018/06/07/20 [id number] Ambulatory [facility] [place] Repository 05/29/2018/06/02/20 [id number] Ambulatory [facility] [address] ing:POB [facility] Repository 05/23/2018/05/23/20 [id number] Ambulatory [place] [place] Repository 05/23/2018/05/24/20 [id number] Ambulatory [address] Repository 05/11/2018 [id number] Ambulatory [facility] ding:HHLAB Repository 04/15/2018/04/30/20 [id number] Ambulatory [address] ding:HHLAB Repository 04/09/2018 [id number] Ambulatory ABuilding:WD [place] [facility] Repository 03/29/2018/04/02/20 [id number] ANGEL LUIS LOPEZ, Inpatient ABuilding:ME [place] 18 MERARYA Encounter 6ERoom: Health 6726Bed: A [facility] Repository 03/15/2018/03/18/20 [id number] Ambulatory [address] Repository 03/11/2018/03/11/20 [id number] Emergency [address] ding:ED Repository 03/05/2018 [id number] Ambulatory [facility] MEDICAL Repository CENTERBuildi ng:CAGWS 03/04/2018/03/11/20 [id number] ANGEL LUIS LOPEZ, Inpatient ABuilding:ME [place] 18 SAREENA Encounter 6ERoom: Health 15Bed: A [facility] Repository 02/27/2018/02/28/20 [id number] Ambulatory ABuilding:CELE [facility] Repository 02/22/2018/02/27/20 [id number] Ambulatory [address] Repository 02/14/2018/02/19/20 [id number] Ambulatory [address] Repository 02/07/2018/02/08/20 [id number] Ambulatory [address] Other [place] Repository 02/07/2018/02/08/20 [id number] Ambulatory [address] MEDICAL Repository CENTERBuildi ng:CAGWS 02/04/2018/02/29/20 [id number] Ambulatory [address] Repository 01/30/2018/01/31/20 [id number] Ambulatory [address] Repository 01/28/2018/01/29/20 [id number] Ambulatory [address] Main [place] Repository 01/28/2018/01/29/20 [id number] Ambulatory [facility] [place] Repository 01/25/2018/02/12/20 [id number] Ambulatory [address] Main [place] Repository 01/25/2018/01/29/20 [id number] Ambulatory [place] [facility] Main [place] Repository 01/24/2018 [id number] Ambulatory [facility] Main [place] Repository 01/24/2018/01/25/20 [id number] Ambulatory [address] Main [place] Repository 12/26/2017/12/27/19 [id number] Ambulatory [address] Main [place] Repository 12/26/2017/12/27/19 [id number] Ambulatory [address] Main [place] Repository 12/19/2017/12/20/19 [id number] Ambulatory [address] Main [place] Repository 12/05/2017/12/07/19 [id number] Ambulatory [address] Main [place] Repository 11/29/2017 [id number] Ambulatory [facility] MEDICAL Repository CENTERBuildi ng:CAGWS 11/08/2017/11/09/19 [id number] Ambulatory [address] Main [place] Repository 11/07/2017/11/08/19 [id number] Ambulatory [address] Main [place] Repository 11/05/2017/11/05/19 [id number] Ambulatory [address] Main [place] Repository 10/25/2017/10/26/19 [id number] Ambulatory [address] Main [place] Repository PAYERS PAYERS ENCOUNTER GUARANTOR PAYER SUBSCRIBER SOURCE 09/18/2018 Shoshana L Primary SHOSHANA L Di [id number] [facility] Insurance:[facility] QUIGLEYDOB[facility] [address] [place] [facility] [id number] [address]Tzy: Number: Repository [id number] (HP) Date:6864-82-99AVPX CLAIMS [address] [place] [address]FE: 09/18/2018 Secondary NOT GIVENUNK Di Insurance:SELF PAY [facility] Number: Effective Repository Date:2018-09-18 05/29/2018 [facility] QUIGLEY[facility]: Insurance:[employer] QUIGLEYDOB: Foundation [facility] [id number] DUALPolicy Number: [address] [id number] [place], [place] [address]Dpl: (000) Date:2018-05-29 07477Dmz: (WP) [id number] 000-0000 (WP) Name:NATTN Claims [address]PO [address] [place] [address]65[address]UC: 05/11/2018 Shoshana L Primary SHOSHANA L Di [id number] [place] Insurance:[facility]ARE [facility] QUIGLEYDOB: [address], [place] [facility] [id number] Hospital [address]Tvd: Number: Repository [id number] () Date:5562-12-18ZQCF CLAIMS DEPTPO [address] [address]QP: 05/11/2018 Secondary NOT GIVENUNK Di Insurance:SELF PAY [facility] Number: Effective Repository Date:2018-05-01 04/15/2018 [facility] Primary SHOSHANA L [place] [id number] Insurance:MYCARE CRSC QUIGLEYDOB: [address] [facility] [id number] Hospital [address]Vve: Number: Repository [id number] (HP) Date:9286-90-63USIO CLAIMS DEPTPO [address] [address]HQ: 04/15/2018 Secondary NOT GIVENUNK Di Insurance:SELF PAY [facility] Number: Effective Repository Date:2018-04-08 04/09/2018 [facility] QUIGLEYDOB: Insurance:[employer] QUIGLEYDOB: [facility] [id number] [address] APT DUALPolicy Number: [address] [place] [id number] [place], [place] [address]Oco: (000) Date:2018-04-0238340Zut: (WP) [id number] 000-0000 (WP) Name:NATTN Claims [address]PO [address] [place] [address]87[address]MQ: 03/29/2018 SHOSHANA Primary [facility] QUIGLEYDOB: [facility] QUIGLEYDOB: [facility] [id number] APT DUALPolicy Number: [address] [place], [place] [id number] [place], [place] [address]Vfi: (000) Date:2018-03-29 42009Sri: (WP) [id number] 000-0000 (WP) Name:NATTN Claims [facility] [address] [place] [address]EN: 03/29/2018 Secondary [facility] Insurance:MEDICARE QUIGLEYDOB: [facility] PART APolicy Number: [id number] Repository [id number] [address] APT Date:2018-03-29[place], [place] [id number] [address]Ubz: (000) Name:MMail Code AG 000-0000 (WP) [address], [place] [address]LF: 03/11/2018 Shoshana L Primary SHOSHANA L [place] [id number] [facility] Insurance:[facility] QUIGLEYDOB: [address], [place] NETWORKPolicy [id number] Hospital [address]Hgu: Number: Repository [id number] (HP) Date:[id number] CLAIMS DEPTPO [address] [place] [address]UV: 03/11/2018 Secondary NOT GIVENUNK Di Insurance:SELF PAY [facility] Number: Effective Repository Date:2018-03-11 03/05/2018 SHOSHANA L Primary SHOSHANA [facility] QUIGLEYDOB: [facility]: [facility] [id number] Repository [address] Number: [id number]: 330 [id number] [phone] () Date: 03/05/2018 Secondary SHOSHANA [facility] Insurance:[facility] QUIGLEYDOB: [facility] [id number] Repository MEDICAIDPolicy Number: [id number] Date: 03/04/2018 [facility]NA [facility] QUIGLEYDOB: [facility]: [facility] [id number] APT DUALPolicy Number: [address] [place] [id number] [address] [place] [address] 14[address]Faq: (000) Date:2018-02-20 67248Rye: (WP) [id number] 000-0000 (WP) Name:GERILandonJosie Biju EncisoIvinson [facility] [address] [place] [address]VJ: 03/04/2018 Secondary [facility] Insurance:MEDICARE QUIGLEYDOB: [facility] PART APolicy Number: [id number] Repository [id number] [address] APT Date:2018-02-20 [place] [id number] [address]Jks: (000) Name:MMail Code AG 000-0000 (WP) [address], [place] [address]TS: 02/27/2018 SHOSHANA [facility]HANA [facility] QUIGLEYDOB: [facility]: [facility] [id number] [address] APT DUALPolicy Number: [address] [place] [address] [id number] [place], [place] [address]Gjh: (000) Date:2018-02-20 [address]Qyy: (WP) [id number] 000-0000 (WP) Name:ARTI VicenteO Liz [address] [place] [address] 20[address]FN: 02/07/2018 SHOSHANA L Primary SHOSHANA L [facility] QUIGLEYDOB: Insurance:MYCARE QUIGLEYDOB: [facility] [id number] Repository [address] MEDICAREPolicy 2[place], [place] Number: [address]Yph: 330 [id number] (HP) Date: 02/07/2018 Secondary SHOSHANA L [facility] Insurance:MYCARE QUIGLEYDOB: [facility] [id number] Repository MEDICAIDPolicy Number: [id number] Date: 11/29/2017 SHOSHANA L Primary SHOSHANA L [facility] QUIGLEYDOB: Insurance:MYCARE QUIGLEYDOB: [facility] [id number] Repository [address] MEDICAREPolicy [place], [place] Number: [address]Ypj: 330 [id number] [phone] (HP) Date: 11/29/2017 Secondary SHOSHANA L [facility] Insurance:MYCARE QUIGLEYDOB: [facility] [id number] Repository MEDICAIDPolicy Number: [id number] Date:
== END 2018-09-18 08:40 | disposition home or self-care (01) ==
PROVIDERS: Emergency Provider Emergency Medicine; Family Provider Internal Medicine; PCP Internal Medicine
DX: E11.649 Type 2 diabetes mellitus with hypoglycemia without coma (principal); T38.3X5A Adverse effect of insulin and oral hypoglycemic [antidiabetic] drugs, initial encounter; Y92.9 Unspecified place or not applicable; I10 Essential (primary) hypertension; E03.9 Hypothyroidism, unspecified; E78.00 Pure hypercholesterolemia, unspecified; Z79.4 Long term (current) use of insulin; Z79.01 Long term (current) use of anticoagulants; Z79.82 Long term (current) use of aspirin; Z79.891 Long term (current) use of opiate analgesic; Z79.899 Other long term (current) drug therapy; Z86.718 Personal history of other venous thrombosis and embolism; Z89.611 Acquired absence of right leg above knee
CPT/HCPCS: 82962; 96374; 99284; J7030; A4216

== ENCOUNTER 2019-03-06 18:23 | Emergency (ER) | payer MEDICARE, SELFPAY ==
[2019-03-06 18:24] VITALS: BP 116/67; PULSE 76; RESP 16; TEMP 36.5; O2SAT 94; BMI 37.2
[2019-03-06 18:40] LABS: Bedside Glucose 296 mg/dL (70-110)
--- NOTE | 2019-03-06 19:08 | EKG12_ITS ---
Test Reason : CP Blood Pressure : / mmHG Vent. Rate : 076 BPM Atrial Rate : 059 BPM P-R Int : 000 ms QRS Dur : 212 ms QT Int : 486 ms P-R-T Axes : 000 224 071 degrees QTc Int : 546 ms Ventricular-paced rhythm Abnormal ECG Confirmed by LIO LOPEZ, HINA ([id number]), sound editor ISAIAH RIOS ([id number]) on 03/12/2019 12:07:15 PM Referred By: DR MEIER Confirmed By:HINA VACA MD
--- NOTE | 2019-03-06 19:19 | ED.DCSUM_ITS ---
History of Present Illness Chief Complaint: Abd Pain Informant: Patient - Abdominal Pain/Flank Pain Onset: Hours - 1 Context: Sudden Onset - just after finishing eating dinner at [employer] Timing: Intermittent - x1, Lasts - 30 min Location: Epigastric, RUQ Current Severity: Gone Maximum Severity: Severe Worsened by: Nothing Relieved by: - - after vomiting food - Nausea/Vomiting/Emesis GI Symptom: Nausea, Vomiting Quality: Nonbilious. Negative for: Blood streaks, Coffee ground, Hematemesis Severity: Moderate - Diarrhea/Melena/Hematochezia GI Symptom: Negative for: Diarrhea, Melena, Hematochezia Associated Symptoms: Negative for: Dysuria, Frequency, Hematuria, Urgency Narrative: Has had prior laparoscopic cholecystectomy and total hysterectomy. Neck or chest. It is now gone and she feels fine. Also having pain in her left wrist for the past 3 days, gradual in onset, has been red and hot. She is on Coumadin for chronic A. fib. She denies any bleeding lately. She denies any injury to her wrist. Never had gout before. Also a diabetic. - Past Medical History (1) Type 2 diabetes mellitus with diabetic peripheral angiopathy without gangrene Status: Chronic (2) History of DVT of lower extremity Status: Chronic (3) History of atrial fibrillation Status: Chronic (4) History of cardiomyopathy Status: Chronic (5) History of hypothyroidism Status: Chronic (6) Morbid obesity Status: Chronic (7) S/P AKA (above knee amputation) Status: Chronic (8) Type II diabetes mellitus Status: Chronic (9) coronary artery disease,prior stents. Status: Chronic Past Medical History - Allergies and Home Meds Allergies/Adverse Reactions: Allergies codeine Allergy (Verified 03/06/19 18:31) Rash latex Allergy (Verified 03/06/19 18:31) Itching Penicillins Allergy (Verified 03/11/18 20:20) Swelling dexamethasone [From Maxidex] Adverse Reaction (Verified 03/06/19 18:31) Unknown iodine Adverse Reaction (Verified 03/06/19 18:31) Itching morphine Adverse Reaction (Verified 03/06/19 18:31) Other Primary Care Physician: Leslie Bird MD [Primary Care Provider] - Surgical History: adenoidectomy, cholecystectomy, coronary bypass surgery, tonsillectomy, - - above knee amputation, right leg 3 years ago. Smoking Status: Former smoker - Family History Maternal Family History: Reports: Diabetes, Heart Disease, Hypertension Paternal Family History: Reports: Heart Disease Review of Systems General: Denies: Chills, Fever, Sweats Eyes: Denies: Visual changes - bilaterally, Diplopia ENT: Denies: Rhinorrhea, Sore throat Cardiovascular: Denies: Chest pain, Palpitations Respiratory: Denies: Dyspnea, Cough, Dyspnea on exertion Gastrointestinal: Reports: Abdominal pain, Nausea, Vomiting. Denies: Diarrhea, Melena, Hematochezia Genitourinary: Denies: Dysuria, Hematuria, Frequency Musculoskeletal: Reports: Swelling - L wrist, Extremity Pain - L wrist. Denies: Back pain Skin: Denies: Rash, Wounds Neurological: Denies: Headache, Weakness, Numbness Physical Exam Vital Signs/Narrative: Vital Signs Temp Pulse Resp BP Pulse Ox 03/06/19 18:24 97.7 F L 76 16 116/67 94 Inital Vital Signs reviewed: Yes General: Well nourished, Well developed, Obese, No Acute Distress Head: Normocephalic, Atraumatic Eyes: Perrl, EOMI ENT: Moist mucous membranes, No rhinorrhea Neck: Supple, Nontender Cardiovascular: Regular rate, Regular rhythm, No murmurs Respiratory: No distress, CTA bilaterally, Chest nontender Abdomen: Soft, Nontender, Nondistended, Normal bowel sounds Back: Nontender, Normal Inspection Extremities: No edema, Tenderness - left wrist. mild dorsal blanching erythema. limited ROM due to pain, able to perform short arc well. warm joint. Skin: Normal color, No rash, No Trauma Neurological: Alert, Oriented x3, Cranial nerves II-XII grossly intact, Normal Strength, Normal Sensation Psychological: Normal affect, Normal Mood Diagnostic/Tx/Re-eval Laboratory Tests 03/06/19 03/06/19 03/06/19 Range/Units 19:50 19:15 19:15 WBC (4.4-11.0) K/mm3 RBC (4.2-5.4) M/mm3 Hgb (12.0-15.0) g/dl Hct (37-47) % MCV (81-99) fL MCH (27.0-32.0) pg MCHC (32-36) g/gl RDW (11.6-14.6) % RDW Differential (35.1-43.9) fl Plt Count (150-450) K/mm3 MPV (6.2-12.0) fl Immature Gran % (Auto) (0.0-0.9) % Neut % (Auto) (47-70) % Lymph % (Auto) (19-41) % [place] % (Auto) (0-10) % Eos % (Auto) (0-5) % Baso % (Auto) (0-1) % Absolute Neuts (auto) (2.0-7.7) X10^3/uL Absolute Lymphs (auto) (0.83-4.51) X10^3/ul Total Counted PT 25.9 H (11.7-14.9) SECONDS INR 2.4 Sodium 131 L (136-145) mmol/L Potassium 5.0 (3.5-5.1) mmol/L Chloride 101 (98-107) mmol/L Carbon Dioxide 19.0 L (21.0-32.0) mmol/L Anion Gap 11 (5-15) BUN 109 H* (7-18) mg/dL Creatinine 3.60 H (0.55-1.02) mg/dL Estim Creat Clear Calc 20.52 ml/min Est GFR (MDRD) Af Amer 17 L (>60) mL/min Est GFR (MDRD) Non-Af 14 L (>60) mL/min BUN/Creatinine Ratio 30.3 H (10-20) RATIO Glucose 328 H (74-106) mg/dL Calcium 9.0 (8.5-10.1) mg/dL Total Bilirubin 0.30 (0.20-1.00) mg/dL AST 14 L (15-37) U/L ALT 27 (13-56) U/L Alkaline Phosphatase 120 H (45-117) U/L Troponin I 0.017 (<0.045) ng/mL Total Protein 7.5 (6.4-8.2) g/dL Albumin 3.1 L (3.2-5.0) g/dL Globulin 4.4 H (2.2-4.2) g/dL Albumin/Globulin Ratio 0.7 L (0.9-2.4) RATIO Lipase 135 (73-393) U/L Urine Color Straw (Yellow) Urine Clarity Clear (Clear) Urine pH 5.0 (5.0 - 8.0) Ur Specific [place] 1.015 (1.002-1.030) Urine Protein 15 H (Negative) mg/dl Urine Glucose (UA) 50 H (Normal) mg/dl Urine Ketones Negative (Negative) mg/dl Urine Occult Blood 25 H (Negative) /ul Urine Nitrite Negative (Negative) Urine Bilirubin Negative (Negative) mg/dL Urine Urobilinogen Normal (Normal) mg/dl Ur Leukocyte Esterase Negative (Negative) /ul Urine RBC 0 SEEN (0-5) /hpf Urine WBC 0 SEEN (0-5) /hpf Ur Squamous Epith Cells 0-5 SEEN (5-10) /hpf Urine Bacteria 0 SEEN (None Seen) /hpf Urine Mucus 0 SEEN (<or=2+) /hpf POC Glucose (70-110) mg/dL 03/06/19 03/06/19 Range/Units 19:15 18:34 WBC 8.9 (4.4-11.0) K/mm3 RBC 3.41 L (4.2-5.4) M/mm3 Hgb 10.6 L (12.0-15.0) g/dl Hct 31.3 L (37-47) % MCV 91.8 (81-99) fL MCH 31.1 (27.0-32.0) pg MCHC 33.9 (32-36) g/gl RDW 13.8 (11.6-14.6) % RDW Differential 45.6 H (35.1-43.9) fl Plt Count 139 L (150-450) K/mm3 MPV 11.4 (6.2-12.0) fl Immature Gran % (Auto) 0.300 (0.0-0.9) % Neut % (Auto) 80.6 H (47-70) % Lymph % (Auto) 8.0 L (19-41) % [place] % (Auto) 8.9 (0-10) % Eos % (Auto) 2.0 (0-5) % Baso % (Auto) 0.2 (0-1) % Absolute Neuts (auto) 7.1 (2.0-7.7) X10^3/uL Absolute Lymphs (auto) 0.71 L (0.83-4.51) X10^3/ul Total Counted Not Reportable PT (11.7-14.9) SECONDS INR Sodium (136-145) mmol/L Potassium (3.5-5.1) mmol/L Chloride (98-107) mmol/L Carbon Dioxide (21.0-32.0) mmol/L Anion Gap (5-15) BUN (7-18) mg/dL Creatinine (0.55-1.02) mg/dL Estim Creat Clear Calc ml/min Est GFR (MDRD) Af Amer (>60) mL/min Est GFR (MDRD) Non-Af (>60) mL/min BUN/Creatinine Ratio (10-20) RATIO Glucose (74-106) mg/dL Calcium (8.5-10.1) mg/dL Total Bilirubin (0.20-1.00) mg/dL AST (15-37) U/L ALT (13-56) U/L Alkaline Phosphatase (45-117) U/L Troponin I (<0.045) ng/mL Total Protein (6.4-8.2) g/dL Albumin (3.2-5.0) g/dL Globulin (2.2-4.2) g/dL Albumin/Globulin Ratio (0.9-2.4) RATIO Lipase (73-393) U/L Urine Color (Yellow) Urine Clarity (Clear) Urine pH (5.0 - 8.0) Ur Specific [place] (1.002-1.030) Urine Protein (Negative) mg/dl Urine Glucose (UA) (Normal) mg/dl Urine Ketones (Negative) mg/dl Urine Occult Blood (Negative) /ul Urine Nitrite (Negative) Urine Bilirubin (Negative) mg/dL Urine Urobilinogen (Normal) mg/dl Ur Leukocyte Esterase (Negative) /ul Urine RBC (0-5) /hpf Urine WBC (0-5) /hpf Ur Squamous Epith Cells (5-10) /hpf Urine Bacteria (None Seen) /hpf Urine Mucus (<or=2+) /hpf POC Glucose 296 H (70-110) mg/dL - Rhythm Strip Rhythm Strip: paced Rate: 80 Ectopy: None - EKG Initial EKG Interpretation: No Acute Injury Pattern, Paced, RBBB - pattern Prior: Unchanged - Medical Decision Making Patient does have uremia with significant renal failure on her labs with a BUN of 109 and creatinine of 3.6. Her last creatinine was 1.9 about a year ago. Discussed this with her, initially she said that she does not see a hospital clinic assistant, but then later she indicated that she has an appointment with one in a couple of weeks, up closer to [place]. She would love to see a specialist closer to [place] if possible. I spoke with Dr. manpreet brumfield with nephrology who is able to see her tomorrow. Since she is amenable to that, and her potassium and other electrolytes are unremarkable, he is comfortable with seeing her in the office tomorrow as opposed to her being admitted. She currently is asymptomatic, and really is not having symptomatic uremia, suggesting this has been chronic in its onset. 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 Colchicine helped her wrist, but it was given prior to knowing about any renal issues, so she will not be prescribed any more of that. I will also avoid prednisone since she is on warfarin and is a diabetic. Furthermore, I do not think she needs arthrocentesis at this time since I am at a low suspicion for a septic arthritis, and because she is on warfarin, so she may have more pain after that. I will give her a velcro wrist splint and supportive care instructions. 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
[2019-03-06 19:27] LABS: Absolute Lymphocyte Count 0.71 X10^3/ul (0.83-4.51); Absolute Neutrophil Count 7.1 X10^3/uL (2.0-7.7); Basophil# 0.02 X10^3/uL; Basophil% 0.2 % (0-1); Eosinophil# 0.18 X10^3/uL; Hematocrit 31.3 % (37-47); Hemoglobin 10.6 g/dl (12.0-15.0); Lymphocyte # 0.71 X10^3/ul (4.0); Mean Corp Hgb Conc 33.9 g/gl (32-36); Mean Corpuscular Hgb 31.1 pg (27.0-32.0); Mean Corpuscular Volume 91.8 fL (81-99); Mean Platelet Vol. 11.4 fl (6.2-12.0); Monocyte# 0.79 X10^3/uL; Monocyte% 8.9 % (0-10); Neutrophil # 7.14 X10^3/uL (2.7-7.7); Neutrophil % 80.6 % (47-70); Platelet Count 139 K/mm3 (150-450); RBC Distribution Width CV 13.8 % (11.6-14.6); RBC Distribution Width SD 45.6 fl (35.1-43.9); Red Blood Count 3.41 M/mm3 (4.2-5.4); White Blood Count 8.9 K/mm3 (4.4-11.0)
[2019-03-06 19:28] LABS: POSITIVE COUNT NO; POSITIVE DIFFERENTIAL NO; POSITIVE MORPHOLOGY NO
[2019-03-06 19:33] LABS: International Normalized Ratio 2.4; Prothrombin Time (Protime)PT. 25.9 SECONDS (11.7-14.9)
[2019-03-06 20:05] LABS: Bacteria 0 SEEN /hpf (None Seen); Mucous, Urine 0 SEEN /hpf (<or=2+); Red Blood Cells-Urine 0 SEEN /hpf (0-5); White Blood Cells 0 SEEN /hpf (0-5)
[2019-03-06 20:10] LABS: ALB/GLOB Ratio 0.7 RATIO (0.9-2.4); AST(SGOT) 14 U/L (15-37); Alanine Aminotransfer ALT/SGPT 27 U/L (13-56); Albumin, Serum 3.1 g/dL (3.2-5.0); Alkaline Phosphatase 120 U/L (45-117); Anion Gap 11 (5-15); BUN 109 mg/dL (7-18); BUN/Creat Ratio 30.3 RATIO (10-20); Chloride 101 mmol/L (98-107); EST Glomerular Filtration Rate 14 mL/min (>60); Est Glom Filt Rate - Afr Amer 17 mL/min (>60); Estimated Creatinine Clearance 20.52 ml/min; Globulin 4.4 g/dL (2.2-4.2); Glucose 328 mg/dL (74-106); Lipase 135 U/L (73-393); Protein, Total 7.5 g/dL (6.4-8.2); Sodium Level 131 mmol/L (136-145)
[2019-03-06 20:45] LABS: Color, Urine Straw (Yellow); Glucose, Dipstick 50 mg/dl (Normal); Ketone-Dipstick Negative (Negative); Leukocyte Esterase-Dipstick Negative /ul (Negative); Nitrite-Dipstick Negative (Negative); Occult Blood-Urine 25 /ul (Negative); Protein-Dipstick 15 mg/dl (Negative); Specific Gravity, Urine 1.015 (1.002-1.030); Urine Bilirubin Dipstick Negative (Negative); Urine Clarity Clear (Clear); Urine Urobilinogen Normal (Normal)
[2019-03-06 20:59] LABS: Squamous Epithelial Cells - UA 0-5 SEEN /hpf (5-10)
[2019-03-06 21:44] VITALS: BP 106/58; PULSE 87; RESP 18; O2SAT 97
--- NOTE | 2019-03-06 21:47 | NURSING ---
aware of elevated BUN
[2019-03-06 23:00] VITALS: BP 116/62; PULSE 83; RESP 18; O2SAT 95
[2019-03-06 23:34] VITALS: BP 116/62; PULSE 75; RESP 17; O2SAT 98
--- NOTE | 2019-03-07 12:46 | PCM.PN.BLA ---
Progress Note received a call from ER about patient labs 03/06/19 around 1030 pm. was asymtomatic. She was asked to come into our office for an appt today at 1230. We called her at 1245 pm and patient tells us that she is not coming in today and has another nephrology appt next week.
== END 2019-03-07 00:15 | disposition home or self-care (01) ==
PROVIDERS: Emergency Provider Emergency Medicine; Family Provider Internal Medicine; PCP Internal Medicine
DX: R10.10 Upper abdominal pain, unspecified (principal); M19.032 Primary osteoarthritis, left wrist; M10.9 Gout, unspecified; E11.22 Type 2 diabetes mellitus with diabetic chronic kidney disease; N17.9 Acute kidney failure, unspecified; N18.9 Chronic kidney disease, unspecified; R11.2 Nausea with vomiting, unspecified; R19.7 Diarrhea, unspecified; K92.1 Melena; I48.2 Chronic atrial fibrillation; I25.10 Atherosclerotic heart disease of native coronary artery without angina pectoris; I42.9 Cardiomyopathy, unspecified; E03.9 Hypothyroidism, unspecified; E66.01 Morbid (severe) obesity due to excess calories; Z79.01 Long term (current) use of anticoagulants; Z88.0 Allergy status to penicillin; Z88.8 Allergy status to other drugs, medicaments and biological substances; Z91.040 Latex allergy status; Z86.718 Personal history of other venous thrombosis and embolism; Z87.891 Personal history of nicotine dependence; Z89.611 Acquired absence of right leg above knee; Z90.49 Acquired absence of other specified parts of digestive tract
CPT/HCPCS: 80053; 81001; 82962; 83690; 84484; 85025; 85610; 93005; 99285; A4216

== ENCOUNTER 2019-03-08 12:02 | Observation (INO) | payer MEDICARE, SELFPAY ==
[2019-03-08] VITALS (12 sets, daily range): BP systolic 115–173; BP diastolic 73–98; PULSE 76–99; RESP 11–20; TEMP 36.1–36.5; O2SAT 94–99; BMI 36.3; BMI 35.9
--- NOTE | 2019-03-08 13:16 | EKG12_ITS ---
Test Reason : CP Blood Pressure : / mmHG Vent. Rate : 077 BPM Atrial Rate : 068 BPM P-R Int : 000 ms QRS Dur : 226 ms QT Int : 474 ms P-R-T Axes : 000 232 072 degrees QTc Int : 536 ms Ventricular-paced rhythm Abnormal ECG Confirmed by JAN LOPEZ, NICKY ([id number]), newspaper editor managing ARON RAPHAEL ([id number]) on 03/11/2019 7:57:35 AM Referred By: Feroz Oquendo Confirmed By:NICKY MONTOYA MD
--- NOTE | 2019-03-08 13:16 | RAD_ITS ---
STUDY: X-RAY CHEST REASON FOR EXAM: Female, 58 years old. Chest pain since this morning TECHNIQUE: AP COMPARISON: 07/06/2014 FINDINGS: Three lead cardiac conduction device is seen via the left subclavian vein with lead tips projecting over the right atrium and right ventricle, respectively, with left atrial lead projecting over the left atrium/posterior cardiac border. EKG leads project over the chest. No airspace consolidation. There is no demonstrated pleural abnormality. There is moderate cardiac enlargement. Normal mediastinum and bridgett. Central pulmonary vessel enlargement similar since the prior study. There is atherosclerosis of the aortic arch. No acute bony process. There is no demonstrated abnormality of the visualized soft tissue structures of the upper abdomen. RAD/Chest 1 View (Portable) IMPRESSION: 1. No airspace consolidation or pleural effusion. 2. Stable chronic vascular congestion. Cardiomegaly. Electronically Signed: Mikey Hernandes MD at 14:03 EDT , Service support ,
[2019-03-08 14:10] LABS: Absolute Lymphocyte Count 1.16 X10^3/ul (0.83-4.51); Absolute Neutrophil Count 5.8 X10^3/uL (2.0-7.7); Basophil# 0.04 X10^3/uL; Basophil% 0.5 % (0-1); Eosinophil# 0.33 X10^3/uL; Eosinophils% 4.2 % (0-5); Hematocrit 34.6 % (37-47); Hemoglobin 11.6 g/dl (12.0-15.0); Lymphocyte # 1.16 X10^3/ul (4.0); Lymphocyte % 14.8 % (19-41); Mean Corp Hgb Conc 33.5 g/gl (32-36); Mean Corpuscular Hgb 31.3 pg (27.0-32.0); Mean Corpuscular Volume 93.3 fL (81-99); Mean Platelet Vol. 13.4 fl (6.2-12.0); Monocyte# 0.47 X10^3/uL; Neutrophil % 74.2 % (47-70); Platelet Count 161 K/mm3 (150-450); RBC Distribution Width CV 13.8 % (11.6-14.6); RBC Distribution Width SD 46.6 fl (35.1-43.9); Red Blood Count 3.71 M/mm3 (4.2-5.4); White Blood Count 7.8 K/mm3 (4.4-11.0)
[2019-03-08 14:15] LABS: International Normalized Ratio 1.8; POSITIVE COUNT NO; POSITIVE DIFFERENTIAL NO; POSITIVE MORPHOLOGY NO; Prothrombin Time (Protime)PT. 20.4 SECONDS (11.7-14.9)
[2019-03-08 14:49] LABS: Anion Gap 6 (5-15); BUN 95 mg/dL (7-18); BUN/Creat Ratio 32.6 RATIO (10-20); Calcium,Total 9.3 mg/dL (8.5-10.1); Chloride 104 mmol/L (98-107); Creatinine, Serum 2.91 mg/dL (0.55-1.02); EST Glomerular Filtration Rate 18 mL/min (>60); Est Glom Filt Rate - Afr Amer 21 mL/min (>60); Estimated Creatinine Clearance 25.39 ml/min; Glucose 271 mg/dL (74-106); Potassium 5.5 mmol/L (3.5-5.1); Sodium Level 133 mmol/L (136-145)
[2019-03-08 15:56] LABS: Digoxin Level 1.54 ng/mL (0.80-2.00)
--- NOTE | 2019-03-08 16:07 | ED.VISSUMM ---
- ER Visit Summary Date of Service: 03/08/19 Chief Complaint: Chest pain History of Present Illness: The patient is a 58 F with history of coronary disease, cardiomyopathy, A. fib with 3 prior cardiac stents and ICD. Patient states she woke at 10 AM this morning with right sternal chest pain. Pain seems to be worse when she tries to move to the seated position but pain is not reproducible with palpation over her chest. Patient had been seen by Dr. Espinoza and has gradual appointment with a new application integration architect and Buffy. Physical Examination: Vital signs unremarkable. Patient sitting upright in bed no acute distress. Head neck examination normal. Heart is regular rate and rhythm. Lung sounds are clear. There is no chest wall tenderness to palpation. Abdomen is soft and nontender. Extremity examination reveals left AKA. Test Results: EKG is paced at 77 with no acute ischemia. Portable chest x-ray shows cardiomegaly with no airspace consolidation. CBC was normal white count with hemoglobin of 11.6. Chemistry studies reveal a sodium of 133 and potassium of 5.5. BUN is 95 and creatinine is 2.91. This is improved when compared to prior labs from 2 days ago. Glucose is 271. INR is slightly subtherapeutic at 1.8. Troponin is less than 0.015. Digoxin is 1.54. Emergency Department Course and Treatment: Patient had been given aspirin by EMS and was resting comfortably on my evaluation. On repeat evaluation she has no significant complaints. Patient states it has probably been 10 years or more since she has had a stress test. I do not have those records available as they were all performed through [facility]. At this time with known history of cardiac disease I think the safest option for her is to be admitted overnight for cycling of cardiac enzymes. She may or may not require another stress test. Treatment Plan: [] Disposition: Admit Impression: 1. Chest pain 2. Mild hyperkalemia 3. Chronic renal failure This note was generated with [employer] dictation software. It may contain incorrect words, spelling, and punctuation that were not noted in review of the chart prior to signing ED Disposition - Plan for ED Patient: Referrals: Leslie Bird MD [Primary Care Provider] -
--- NOTE | 2019-03-08 16:10 | ED.DCSUM_ITS ---
- ER Visit Summary Date of Service: 03/08/19 Chief Complaint: Chest pain History of Present Illness: The patient is a 58 F with history of coronary disease, cardiomyopathy, A. fib with 3 prior cardiac stents and ICD. Patient states she woke at 10 AM this morning with right sternal chest pain. Pain seems to be worse when she tries to move to the seated position but pain is not reproducible with palpation over her chest. Patient had been seen by Dr. Espinoza and has gradual appointment with a new top edge beveler and Buffy. Physical Examination: Vital signs unremarkable. Patient sitting upright in bed no acute distress. Head neck examination normal. Heart is regular rate and rhythm. Lung sounds are clear. There is no chest wall tenderness to palpation. Abdomen is soft and nontender. Extremity examination reveals left AKA. Test Results: EKG is paced at 77 with no acute ischemia. Portable chest x-ray shows cardiomegaly with no airspace consolidation. CBC was normal white count with hemoglobin of 11.6. Chemistry studies reveal a sodium of 133 and potassium of 5.5. BUN is 95 and creatinine is 2.91. This is improved when compared to prior labs from 2 days ago. Glucose is 271. INR is slightly subtherapeutic at 1.8. Troponin is less than 0.015. Digoxin is 1.54. Emergency Department Course and Treatment: Patient had been given aspirin by EMS and was resting comfortably on my evaluation. On repeat evaluation she has no significant complaints. Patient states it has probably been 10 years or more since she has had a stress test. I do not have those records available as they were all performed through [facility]. At this time with known history of cardiac disease I think the safest option for her is to be admitted overnight for cycling of cardiac enzymes. She may or may not require another stress test. Treatment Plan: [] Disposition: Admit Impression: 1. Chest pain 2. Mild hyperkalemia 3. Chronic renal failure This note was generated with [employer] dictation software. It may contain incorrect words, spelling, and punctuation that were not noted in review of the chart prior to signing ED Disposition - Plan for ED Patient: Referrals: Leslie Bird MD [Primary Care Provider] -
--- NOTE | 2019-03-08 16:49 | PCM.HP.STD ---
<Zuleyka Watt - Last Filed: 03/08/19 17:35> Problem List (1) S/P AKA (above knee amputation) Status: Chronic Qualifiers: Laterality: right Qualified Code(s): Z89.611 - Acquired absence of right leg above knee (2) Morbid obesity Status: Chronic (3) Type II diabetes mellitus Status: Chronic (4) Ischemic cardiomyopathy Status: Chronic (5) History of atrial fibrillation Status: Chronic (6) History of DVT of lower extremity Status: Chronic (7) History of hypothyroidism Status: Chronic (8) Non-pressure chronic ulcer of other part of left lower leg with fat layer exposed Status: Resolved (9) Pressure ulcer of ischium, stage 2 Status: Resolved (10) coronary artery disease,prior stents. Status: Chronic (11) Tobacco abuse Status: Chronic History of Present Illness Date of Admission: 03/08/19 Chief Complaint: Chest pain. The patient is a 58 year old F who presents to the Emergency Room due to chest pain. She reports she woke up this morning and developed chest pressure when she sat up in bed. She denies pain radiation. Denies shortness of breath, diaphoresis or other associated symptoms. She reports her chest pressure has remained until arriving to the emergency room. She has a past medical history of CAD status post stents x3, history of ischemic cardiomyopathy, type 2 diabetes mellitus, paroxysmal atrial fibrillation, history of DVT, hypothyroidism, hypertension, hyperlipidemia, GERD, depression/anxiety, history of tobacco dependence, marijuana use, status post right [id number] amputation, status post pacemaker placement, obesity. Past Medical History Past Medical History (Chronic Problems): Chronic Problems S/P AKA (above knee amputation) (Chronic) Morbid obesity (Chronic) Type II diabetes mellitus (Chronic) Ischemic cardiomyopathy (Chronic) History of atrial fibrillation (Chronic) History of DVT of lower extremity (Chronic) History of hypothyroidism (Chronic) coronary artery disease,prior stents. (Chronic) Tobacco abuse (Chronic) Allergies codeine Allergy (Verified 03/06/19 18:31) Rash latex Allergy (Verified 03/06/19 18:31) Itching Penicillins Allergy (Verified 03/11/18 20:20) Swelling dexamethasone [From Maxidex] Adverse Reaction (Verified 03/06/19 18:31) Unknown iodine Adverse Reaction (Verified 03/06/19 18:31) Itching morphine Adverse Reaction (Verified 03/06/19 18:31) Other Home Medications: Ambulatory Orders Medication Instructions Recorded Lisinopril [Zestril] 20 mg PO DAILY 07/02/13 Lorazepam 0.5 mg PO TID PRN PRN 07/02/13 Albuterol IH (ProAir) [Proair Hfa] 2 puff INHALATION Q4H PRN PRN 07/19/13 Nitroglycerin [Nitrostat] 0.4 mg SL PRN PRN 07/19/13 Warfarin [Coumadin] 5 mg PO TUTHSA 07/19/13 Atorvastatin Calcium [Lipitor] 40 mg PO QHS 06/02/15 Digoxin [Lanoxin] 125 mcg PO DAILY 06/02/15 Esomeprazole Mag Trihydrate 40 mg PO DAILY 06/02/15 [Nexium] Gabapentin [Neurontin] 600 mg PO TID 06/02/15 Hydrochlorothiazide 25 mg PO DAILY 06/02/15 Cholecalciferol (Vitamin D3) 50,000 units PO MO 03/08/16 [Vitamin D] Insulin U-500 [Humulin R U-500 70 unit SC DINNER 03/08/16 ([facility])] Insulin U-500 [Humulin R U-500 80 units SC BREAKFAST 03/08/16 ([facility])] Warfarin [Coumadin (PBKC)] 7.5 mg PO SUMOWEFR 03/08/16 buPROPion SR [Wellbutrin Sr] 450 mg PO DAILY 03/08/16 Carvedilol [Coreg] 25 mg PO BID 07/07/17 Aspirin [Aspirin, Baby] 81 mg PO DAILY@0800 08/15/17 Furosemide 40 mg PO DAILY 03/06/19 traMADol [Ultram (G)] 50 mg PO 4X/DAY 03/08/19 Surgical History: adenoidectomy, cholecystectomy, hysterectomy, tonsillectomy, - - Right [id number]-[id number] amputation, panniculectomy, pacemaker placement, left leg vein grafting/bypass. 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 Review of Systems Constitutional: Denies: Chills, Fever, Weight Change HEENT: Denies: Head Aches, Sinus Congestion, Sinus Drainage Cardiovascular: Reports: Chest Pain, Chest Pressure Respiratory: Denies: Cough, Shortness of breath at rest, Sputum production Gastrointestinal: Denies: Abdominal Pain, Nausea, Vomiting Genitourinary: Denies: Dysuria Musculoskeletal: Reports: - - R AKA. Denies: Joint Pain, Joint Tenderness Skin: Denies: Rash, Wounds Neurological: Denies: Numbness, Tingling, Focal weakness Psychiatric: Denies: Anxiety, Depression, Homicidal Ideations, Suicidal Ideations Hematologic/ Lymphatic: Denies: Easy Bruising, Easy Bleeding VTE Information - Inpt Only VTE Present on Admission: No VTE Mechan Device Prophylaxis: None VTE Pharm Prophylaxis ordered?: Yes - Physical Exam General: Alert, Oriented x3, Cooperative HEENT: Atraumatic, PERRLA, EOMI, Normocephalic Neck: Supple, No JVD, Negative Carotid Bruits Lungs: Clear to auscultation, Normal air movement Cardiovascular: Regular rate, No murmurs, - - V-paced Abdomen: Bowel Sounds Present, Soft, Non Tender, Non-Distended, Obese Extremities: No clubbing, No cyanosis, No edema, Capillary Refill Less than 3 Seconds, - - R AKA Skin: No rashes, No breakdown, - - Prior coccyx pressure ulcer Musculoskeletal: No Tenderness to Palpation of Joints or Extremities Neurological: Cranial nerves II-XII grossly intact, Neuro grossly intact Psych/Mental Status: Normal Affect, Appropriate Vital Signs Temp Pulse Resp BP Pulse Ox 97.2 F L 95 12 148/95 H 97 03/08/19 12:05 03/08/19 16:14 03/08/19 16:14 03/08/19 16:14 03/08/19 16:14 Oxygen Delivery Method Room Air Weight: 275 lb 14.921 oz Body Mass Index (BMI) 36.3 Finger Stick Blood Glucose 140 Laboratory Tests Past 24 Hrs 03/08/19 03/08/19 03/08/19 12:17 12:17 12:17 WBC 7.8 RBC 3.71 L Hgb 11.6 L Hct 34.6 L MCV 93.3 MCH 31.3 MCHC 33.5 RDW 13.8 RDW Differential 46.6 H Plt Count 161 MPV 13.4 H Immature Gran % (Auto) 0.300 Neut % (Auto) 74.2 H Lymph % (Auto) 14.8 L Jackson % (Auto) 6.0 Eos % (Auto) 4.2 Baso % (Auto) 0.5 Absolute Neuts (auto) 5.8 Absolute Lymphs (auto) 1.16 Total Counted Not Reportable PT 20.4 H INR 1.8 Sodium 133 L Potassium 5.5 H Chloride 104 Carbon Dioxide 23.0 Anion Gap 6 BUN 95 H Creatinine 2.91 H Estim Creat Clear Calc 25.39 Est GFR (MDRD) Af Amer 21 L Est GFR (MDRD) Non-Af 18 L BUN/Creatinine Ratio 32.6 H Glucose 271 H Calcium 9.3 Troponin I < 0.015 Digoxin 03/08/19 14:05 WBC RBC Hgb Hct MCV MCH MCHC RDW RDW Differential Plt Count MPV Immature Gran % (Auto) Neut % (Auto) Lymph % (Auto) Jackson % (Auto) Eos % (Auto) Baso % (Auto) Absolute Neuts (auto) Absolute Lymphs (auto) Total Counted PT INR Sodium Potassium Chloride Carbon Dioxide Anion Gap BUN Creatinine Estim Creat Clear Calc Est GFR (MDRD) Af Amer Est GFR (MDRD) Non-Af BUN/Creatinine Ratio Glucose Calcium Troponin I Digoxin 1.54 Assessment/Plan All Active Problems Non-pressure chronic ulcer of other part of left lower leg with fat layer exposed (Resolved) Pressure ulcer of ischium, stage 2 (Resolved) 1. Chest pain with history of CAD status post stents x3-EKG in ER without evidence of ischemia. Initial troponin negative. Trend enzymes. Plan for stress test if enzymes remain negative. 2. Chronic kidney disease stage IV with hyperkalemia-patient reports she is scheduled to establish with anatomy and physiology instructor in [place] in a few weeks. Repeat BMP in a.m. 3. History of ischemic cardiomyopathy-prior echocardiogram from 2012 showed an EF of 25 to 30%. No records have repeat echocardiogram, patient has followed with [facility] cardiology. 4. Type 2 diabetes mellitus-continue home insulin regimen with sliding scale insulin. Check hemoglobin A1c. 5. Paroxysmal atrial fibrillation-continue Coumadin, carvedilol. 6. History of DVT-on anticoagulation with Coumadin. 7. Hypothyroidism-not on regimen? Check TSH. 8. Hypertension-stable, continue home carvedilol, hydrochlorothiazide, lisinopril regimen. 9. Hyperlipidemia-continue statin. 10. GERD-continue PPI regimen. 11. Depression/anxiety-continue home bupropion, lorazepam regimen. 12. History of tobacco dependence-reports she has not smoked tobacco products in several years. Encouraged continued cessation. 13. Marijuana use 14. Status post right [id number] amputation- PT/OT. 15. Status post pacemaker placement-patient reports this was secondary to fast heart rate and atrial fibrillation. 16. Obesity-encourage diet lifestyle modifications. 17. Prior coccyx decubitus ulcer-patient reports this is healed. Previously followed with wound center. Every 2 hour turns. 18. History of left lower extremity vein grafting/bypass-continue aspirin, statin. 19. Chronic normocytic anemia-at baseline. DVT prophylaxis-Coumadin This patient was seen by CATHRYN Diaz under the supervision of Dr. Oquendo. <Feroz Oquendo F - Last Filed: 03/08/19 19:04> History of Present Illness The patient is a 58 year old F [] Past Medical History Allergies codeine Allergy (Verified 03/06/19 18:31) Rash latex Allergy (Verified 03/06/19 18:31) Itching Penicillins Allergy (Verified 03/11/18 20:20) Swelling dexamethasone [From Maxidex] Adverse Reaction (Verified 03/06/19 18:31) Unknown iodine Adverse Reaction (Verified 03/06/19 18:31) Itching morphine Adverse Reaction (Verified 03/06/19 18:31) Other - Physical Exam Vital Signs Temp Pulse Resp BP Pulse Ox 97.7 F L 79 17 161/95 H 94 03/08/19 16:56 03/08/19 16:56 03/08/19 16:56 03/08/19 16:56 03/08/19 16:56 Oxygen Delivery Method Room Air Weight: 272 lb 4.334 oz Body Mass Index (BMI) 35.9 Finger Stick Blood Glucose 140 Laboratory Tests Past 24 Hrs 03/08/19 03/08/19 03/08/19 12:17 12:17 12:17 WBC 7.8 RBC 3.71 L Hgb 11.6 L Hct 34.6 L MCV 93.3 MCH 31.3 MCHC 33.5 RDW 13.8 RDW Differential 46.6 H Plt Count 161 MPV 13.4 H Immature Gran % (Auto) 0.300 Neut % (Auto) 74.2 H Lymph % (Auto) 14.8 L Jackson % (Auto) 6.0 Eos % (Auto) 4.2 Baso % (Auto) 0.5 Absolute Neuts (auto) 5.8 Absolute Lymphs (auto) 1.16 Total Counted Not Reportable PT 20.4 H INR 1.8 Sodium 133 L Potassium 5.5 H Chloride 104 Carbon Dioxide 23.0 Anion Gap 6 BUN 95 H Creatinine 2.91 H Estim Creat Clear Calc 25.39 Est GFR (MDRD) Af Amer 21 L Est GFR (MDRD) Non-Af 18 L BUN/Creatinine Ratio 32.6 H Glucose 271 H Calcium 9.3 Troponin I < 0.015 TSH Digoxin 03/08/19 03/08/19 03/08/19 14:05 17:30 17:30 WBC RBC Hgb Hct MCV MCH MCHC RDW RDW Differential Plt Count MPV Immature Gran % (Auto) Neut % (Auto) Lymph % (Auto) Jackson % (Auto) Eos % (Auto) Baso % (Auto) Absolute Neuts (auto) Absolute Lymphs (auto) Total Counted PT INR Sodium Potassium Chloride Carbon Dioxide Anion Gap BUN Creatinine Estim Creat Clear Calc Est GFR (MDRD) Af Amer Est GFR (MDRD) Non-Af BUN/Creatinine Ratio Glucose Calcium Troponin I < 0.015 TSH Pending Digoxin 1.54 POC Glucose 03/08/19 18:12 POC Glucose 110 Code Visit Addendum: Dr. Oquendo I personally examined the patient and reviewed the chart. I agree with the above. 58-year-old female significant past medical history of ischemic cardiomyopathy with an EF of 25 to 30%, hypertension, hyperlipidemia, type 2 diabetes status post right AKA, pacemaker for fast heart rate in A. fib, presenting with chest pain. Chest pain is been present all day today, and it has not gotten better or worse with activity or rest. She did not have any shortness of breath or diaphoresis with the episode. No radiation. And her initial troponin in the ER was normal. She is a former patient of Dr. Tomlinson, and she has a follow-up appointment with cardiology in [place] as she would like to keep her cardiology care within the [facility]. I discussed with her that if her troponins were negative she could potentially have a stress test done as an outpatient at that facility, however she stated that if if we felt that she needed to have a stress test she would prefer to have it done here as her follow-up appointment with that group is in for several months from now. We will obtain a stress test on Sunday. OBSV E&M: [id number] Initial observation care L3
--- NOTE | 2019-03-08 17:04 | HP.PCM_ITS ---
<Zuleyka Watt - Last Filed: 03/08/19 17:35> Problem List (1) S/P AKA (above knee amputation) Status: Chronic Qualifiers: Laterality: right Qualified Code(s): Z89.611 - Acquired absence of right leg above knee (2) Morbid obesity Status: Chronic (3) Type II diabetes mellitus Status: Chronic (4) Ischemic cardiomyopathy Status: Chronic (5) History of atrial fibrillation Status: Chronic (6) History of DVT of lower extremity Status: Chronic (7) History of hypothyroidism Status: Chronic (8) Non-pressure chronic ulcer of other part of left lower leg with fat layer exposed Status: Resolved (9) Pressure ulcer of ischium, stage 2 Status: Resolved (10) coronary artery disease,prior stents. Status: Chronic (11) Tobacco abuse Status: Chronic History of Present Illness Date of Admission: 03/08/19 Chief Complaint: Chest pain. The patient is a 58 year old F who presents to the Emergency Room due to chest pain. She reports she woke up this morning and developed chest pressure when she sat up in bed. She denies pain radiation. Denies shortness of breath, diaphoresis or other associated symptoms. She reports her chest pressure has remained until arriving to the emergency room. She has a past medical history of CAD status post stents x3, history of ischemic cardiomyopathy, type 2 diabetes mellitus, paroxysmal atrial fibrillation, history of DVT, hypo thyroidism, hypertension, hyperlipidemia, GERD, depression/anxiety, history of tobacco dependence, marijuana use, status post right [id number] amputation, status post pacemaker placement, obesity. Past Medical History Past Medical History (Chronic Problems): Chronic Problems S/P AKA (above knee amputation) (Chronic) Morbid obesity (Chronic) Type II diabetes mellitus (Chronic) Ischemic cardiomyopathy (Chronic) History of atrial fibrillation (Chronic) History of DVT of lower extremity (Chronic) History of hypothyroidism (Chronic) coronary artery disease,prior stents. (Chronic) Tobacco abuse (Chronic) Allergies codeine Allergy (Verified 03/06/19 18:31) Rash latex Allergy (Verified 03/06/19 18:31) Itching Penicillins Allergy (Verified 03/11/18 20:20) Swelling dexamethasone [From Maxidex] Adverse Reaction (Verified 03/06/19 18:31) Unknown iodine Adverse Reaction (Verified 03/06/19 18:31) Itching morphine Adverse Reaction (Verified 03/06/19 18:31) Other Home Medications: Ambulatory Orders Medication Instructions Recorded Lisinopril [Zestril] 20 mg PO DAILY 07/02/13 Lorazepam 0.5 mg PO TID PRN PRN 07/02/13 Albuterol IH (ProAir) [Proair Hfa] 2 puff INHALATION Q4H PRN PRN 07/19/13 Nitroglycerin [Nitrostat] 0.4 mg SL PRN PRN 07/19/13 Warfarin [Coumadin] 5 mg PO TUTHSA 07/19/13 Atorvastatin Calcium [Lipitor] 40 mg PO QHS 06/02/15 Digoxin [Lanoxin] 125 mcg PO DAILY 06/02/15 Esomeprazole Mag Trihydrate 40 mg PO DAILY 06/02/15 [Nexium] Gabapentin [Neurontin] 600 mg PO TID 06/02/15 Hydrochlorothiazide 25 mg PO DAILY 06/02/15 Cholecalciferol (Vitamin D3) 50,000 units PO MO 03/08/16 [Vitamin D] Insulin U-500 [Humulin R U-500 70 unit SC DINNER 03/08/16 ([facility])] Insulin U-500 [Humulin R U-500 80 units SC BREAKFAST 03/08/16 ([facility])] Warfarin [Coumadin (PBKC)] 7.5 mg PO SUMOWEFR 03/08/16 buPROPion SR [Wellbutrin Sr] 450 mg PO DAILY 03/08/16 Carvedilol [Coreg] 25 mg PO BID 07/07/17 Aspirin [Aspirin, Baby] 81 mg PO DAILY@0800 08/15/17 Furosemide 40 mg PO DAILY 03/06/19 traMADol [Ultram (G)] 50 mg PO 4X/DAY 03/08/19 Surgical History: adenoidectomy, cholecystectomy, hysterectomy, tonsillectomy, - - Right [id number] amputation, panniculectomy, pacemaker placement, left leg vein grafting/bypass. 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 Review of Systems Constitutional: Denies: Chills, Fever, Weight Change HEENT: Denies: Head Aches, Sinus Congestion, Sinus Drainage Cardiovascular: Reports: Chest Pain, Chest Pressure Respiratory: Denies: Cough, Shortness of breath at rest, Sputum production Gastrointestinal: Denies: Abdominal Pain, Nausea, Vomiting Genitourinary: Denies: Dysuria Musculoskeletal: Reports: - - R AKA. Denies: Joint Pain, Joint Tenderness Skin: Denies: Rash, Wounds Neurological: Denies: Numbness, Tingling, Focal weakness Psychiatric: Denies: Anxiety, Depression, Homicidal Ideations, Suicidal Ideations Hematologic/ Lymphatic: Denies: Easy Bruising, Easy Bleeding VTE Information - Inpt Only VTE Present on Admission: No VTE Mechan Device Prophylaxis: None VTE Pharm Prophylaxis ordered?: Yes - Physical Exam General: Alert, Oriented x3, Cooperative HEENT: Atraumatic, PERRLA, EOMI, Normocephalic Neck: Supple, No JVD, Negative Carotid Bruits Lungs: Clear to auscultation, Normal air movement Cardiovascular: Regular rate, No murmurs, - - V-paced Abdomen: Bowel Sounds Present, Soft, Non Tender, Non-Distended, Obese Extremities: No clubbing, No cyanosis, No edema, Capillary Refill Less than 3 Seconds, - - R AKA Skin: No rashes, No breakdown, - - Prior coccyx pressure ulcer Musculoskeletal: No Tenderness to Palpation of Joints or Extremities Neurological: Cranial nerves II-XII grossly intact, Neuro grossly intact Psych/Mental Status: Normal Affect, Appropriate Vital Signs Temp Pulse Resp BP Pulse Ox 97.2 F L 95 12 148/95 H 97 03/08/19 12:05 03/08/19 16:14 03/08/19 16:14 03/08/19 16:14 03/08/19 16:14 Oxygen Delivery Method Room Air Weight: 275 lb 14.921 oz Body Mass Index (BMI) 36.3 Finger Stick Blood Glucose 140 Laboratory Tests Past 24 Hrs 03/08/19 03/08/19 03/08/19 12:17 12:17 12:17 WBC 7.8 RBC 3.71 L Hgb 11.6 L Hct 34.6 L MCV 93.3 MCH 31.3 MCHC 33.5 RDW 13.8 RDW Differential 46.6 H Plt Count 161 MPV 13.4 H Immature Gran % (Auto) 0.300 Neut % (Auto) 74.2 H Lymph % (Auto) 14.8 L Treasure % (Auto) 6.0 Eos % (Auto) 4.2 Baso % (Auto) 0.5 Absolute Neuts (auto) 5.8 Absolute Lymphs (auto) 1.16 Total Counted Not Reportable PT 20.4 H INR 1.8 Sodium 133 L Potassium 5.5 H Chloride 104 Carbon Dioxide 23.0 Anion Gap 6 BUN 95 H Creatinine 2.91 H Estim Creat Clear Calc 25.39 Est GFR (MDRD) Af Amer 21 L Est GFR (MDRD) Non-Af 18 L BUN/Creatinine Ratio 32.6 H Glucose 271 H Calcium 9.3 Troponin I < 0.015 Digoxin 03/08/19 14:05 WBC RBC Hgb Hct MCV MCH MCHC RDW RDW Differential Plt Count MPV Immature Gran % (Auto) Neut % (Auto) Lymph % (Auto) Treasure % (Auto) Eos % (Auto) Baso % (Auto) Absolute Neuts (auto) Absolute Lymphs (auto) Total Counted PT INR Sodium Potassium Chloride Carbon Dioxide Anion Gap BUN Creatinine Estim Creat Clear Calc Est GFR (MDRD) Af Amer Est GFR (MDRD) Non-Af BUN/Creatinine Ratio Glucose Calcium Troponin I Digoxin 1.54 Assessment/Plan All Active Problems Non-pressure chronic ulcer of other part of left lower leg with fat layer exposed (Resolved) Pressure ulcer of ischium, stage 2 (Resolved) 1. Chest pain with history of CAD status post stents x3-EKG in ER without evidence of ischemia. Initial troponin negative. Trend enzymes. Plan for stress test if enzymes remain negative. 2. Chronic kidney disease stage IV with hyperkalemia-patient reports she is scheduled to establish with hospital scientist in [place] in a few weeks. Repeat BMP in a.m. 3. History of ischemic cardiomyopathy-prior echocardiogram from 2012 showed an EF of 25 to 30%. No records have repeat echocardiogram, patient has followed with [facility] cardiology. 4. Type 2 diabetes mellitus-continue home insulin regimen with sliding scale insulin. Check hemoglobin A1c. 5. Paroxysmal atrial fibrillation-continue Coumadin, carvedilol. 6. History of DVT-on anticoagulation with Coumadin. 7. Hypothyroidism-not on regimen? Check TSH. 8. Hypertension-stable, continue home carvedilol, hydrochlorothiazide, lisinopril regimen. 9. Hyperlipidemia-continue statin. 10. GERD-continue PPI regimen. 11. Depression/anxiety-continue home bupropion, lorazepam regimen. 12. History of tobacco dependence-reports she has not smoked tobacco products in several years. Encouraged continued cessation. 13. Marijuana use 14. Status post right [id number]-[id number] amputation- PT/OT. 15. Status post pacemaker placement-patient reports this was secondary to fast heart rate and atrial fibrillation. 16. Obesity-encourage diet lifestyle modifications. 17. Prior coccyx decubitus ulcer-patient reports this is healed. Previously followed with wound center. Every 2 hour turns. 18. History of left lower extremity vein grafting/bypass-continue aspirin, statin. 19. Chronic normocytic anemia-at baseline. DVT prophylaxis-Coumadin This patient was seen by CATHRYN Diaz under the supervision of Dr. Oquendo. <Feroz Oquendo F - Last Filed: 03/08/19 19:04> History of Present Illness The patient is a 58 year old F [] Past Medical History Allergies codeine Allergy (Verified 03/06/19 18:31) Rash latex Allergy (Verified 03/06/19 18:31) Itching Penicillins Allergy (Verified 03/11/18 20:20) Swelling dexamethasone [From Maxidex] Adverse Reaction (Verified 03/06/19 18:31) Unknown iodine Adverse Reaction (Verified 03/06/19 18:31) Itching morphine Adverse Reaction (Verified 03/06/19 18:31) Other - Physical Exam Vital Signs Temp Pulse Resp BP Pulse Ox 97.7 F L 79 17 161/95 H 94 03/08/19 16:56 03/08/19 16:56 03/08/19 16:56 03/08/19 16:56 03/08/19 16:56 Oxygen Delivery Method Room Air Weight: 272 lb 4.334 oz Body Mass Index (BMI) 35.9 Finger Stick Blood Glucose 140 Laboratory Tests Past 24 Hrs 03/08/19 03/08/19 03/08/19 12:17 12:17 12:17 WBC 7.8 RBC 3.71 L Hgb 11.6 L Hct 34.6 L MCV 93.3 MCH 31.3 MCHC 33.5 RDW 13.8 RDW Differential 46.6 H Plt Count 161 MPV 13.4 H Immature Gran % (Auto) 0.300 Neut % (Auto) 74.2 H Lymph % (Auto) 14.8 L Treasure % (Auto) 6.0 Eos % (Auto) 4.2 Baso % (Auto) 0.5 Absolute Neuts (auto) 5.8 Absolute Lymphs (auto) 1.16 Total Counted Not Reportable PT 20.4 H INR 1.8 Sodium 133 L Potassium 5.5 H Chloride 104 Carbon Dioxide 23.0 Anion Gap 6 BUN 95 H Creatinine 2.91 H Estim Creat Clear Calc 25.39 Est GFR (MDRD) Af Amer 21 L Est GFR (MDRD) Non-Af 18 L BUN/Creatinine Ratio 32.6 H Glucose 271 H Calcium 9.3 Troponin I < 0.015 TSH Digoxin 03/08/19 03/08/19 03/08/19 14:05 17:30 17:30 WBC RBC Hgb Hct MCV MCH MCHC RDW RDW Differential Plt Count MPV Immature Gran % (Auto) Neut % (Auto) Lymph % (Auto) Treasure % (Auto) Eos % (Auto) Baso % (Auto) Absolute Neuts (auto) Absolute Lymphs (auto) Total Counted PT INR Sodium Potassium Chloride Carbon Dioxide Anion Gap BUN Creatinine Estim Creat Clear Calc Est GFR (MDRD) Af Amer Est GFR (MDRD) Non-Af BUN/Creatinine Ratio Glucose Calcium Troponin I < 0.015 TSH Pending Digoxin 1.54 POC Glucose 03/08/19 18:12 POC Glucose 110 Code Visit Addendum: Dr. Oquendo I personally examined the patient and reviewed the chart. I agree with the above. 58-year-old female significant past medical history of ischemic cardiomyopathy with an EF of 25 to 30%, hypertension, hyperlipidemia, type 2 diabetes status post right AKA, pacemaker for fast heart rate in A. fib, presenting with chest pain. Chest pain is been present all day today, and it has not gotten better or worse with activity or rest. She did not have any shortness of breath or diaphoresis with the episode. No radiation. And her initial troponin in the ER was normal. She is a former patient of Dr. Tomlinson, and she has a follow-up appointment with cardiology in [place] as she would like to keep her cardiology care within the [facility]. I discussed with her that if her troponins were negative she could potentially have a stress test done as an outpatient at that facility, however she stated that if if we felt that she needed to have a stress test she would prefer to have it done here as her follow-up appointment with that group is in for several months from now. We will obtain a stress test on Sunday. OBSV E&M: [id number] Initial observation care L3
--- NOTE | 2019-03-08 17:14 | EKG12_ITS ---
Test Reason : ABD PAIN Blood Pressure : / mmHG Vent. Rate : 079 BPM Atrial Rate : 079 BPM P-R Int : 000 ms QRS Dur : 218 ms QT Int : 486 ms P-R-T Axes : 000 207 079 degrees QTc Int : 557 ms Ventricular-paced rhythm Abnormal ECG Confirmed by JAN LOPEZ, NICKY ([id number]), editorial manager ARON RAPHAEL ([id number]) on 03/11/2019 8:43:50 AM Referred By: Feroz Oquendo Confirmed By:NICKY MONTOYA MD
[2019-03-08 18:26] LABS: Bedside Glucose 110 mg/dL (70-110)
[2019-03-08 19:02] LABS: Thyroid Stim Hormone (TSH) 1.84 uIU/mL (0.358-3.74)
--- NOTE | 2019-03-08 19:27 | EKG12_ITS ---
Test Reason : CP ADMISSION Blood Pressure : / mmHG Vent. Rate : 081 BPM Atrial Rate : 073 BPM P-R Int : 000 ms QRS Dur : 212 ms QT Int : 480 ms P-R-T Axes : 000 216 056 degrees QTc Int : 557 ms Ventricular-paced rhythm Abnormal ECG Confirmed by LIO LOPEZ, HINA ([id number]), commissioning editor ISAIAH RIOS ([id number]) on 03/12/2019 12:08:50 PM Referred By: Feroz Oquendo Confirmed By:HINA VACA MD
[2019-03-08] MEDS: 0.9% Normal Saline 1,000 ML 100 ML IV (20:05)
[2019-03-08] MEDS: Carvedilol 25 MG Tablet PO (21:24)
[2019-03-08] MEDS: Gabapentin 600 MG Tablet PO (21:25)
[2019-03-08] MEDS: traMADol 50 MG Tablet PO (21:25)
[2019-03-08] MEDS: Atorvastatin Calcium 40 MG Tablet PO (21:25)
[2019-03-08] MEDS: Insulin Lispro 100 UNIT/ML INSULN.PEN SQ (21:28)
[2019-03-08 21:55] LABS: Bedside Glucose 222 mg/dL (70-110)
[2019-03-09] VITALS (11 sets, daily range): BP systolic 125–152; BP diastolic 59–81; PULSE 74–97; RESP 16–20; TEMP 36.6–36.9; O2SAT 96–97
[2019-03-09] MEDS: traMADol 50 MG Tablet PO ×3 (04:24→14:32)
[2019-03-09] MEDS: 0.9% Normal Saline 1,000 ML 100 ML IV ×2 (04:24→14:32)
[2019-03-09] MEDS: Gabapentin 600 MG Tablet PO ×3 (05:44→21:18)
[2019-03-09 06:46] LABS: Bedside Glucose 254 mg/dL (70-110)
[2019-03-09 07:16] LABS: International Normalized Ratio 1.6; Prothrombin Time (Protime)PT. 18.9 SECONDS (11.7-14.9)
[2019-03-09 07:27] LABS: Anion Gap 8 (5-15); BUN 80 mg/dL (7-18); BUN/Creat Ratio 32.7 RATIO (10-20); Calcium,Total 9.4 mg/dL (8.5-10.1); Chloride 108 mmol/L (98-107); Creatinine, Serum 2.45 mg/dL (0.55-1.02); EST Glomerular Filtration Rate 22 mL/min (>60); Est Glom Filt Rate - Afr Amer 26 mL/min (>60); Estimated Creatinine Clearance 30.16 ml/min; Glucose 227 mg/dL (74-106); Potassium 4.9 mmol/L (3.5-5.1); Sodium Level 139 mmol/L (136-145)
[2019-03-09] MEDS: Insulin Lispro 100 UNIT/ML INSULN.PEN SQ ×4 (08:18→21:18)
[2019-03-09] MEDS: Aspirin 81 MG TAB.CHEW PO (08:20)
[2019-03-09] MEDS: Carvedilol 25 MG Tablet PO ×2 (08:22→21:18)
[2019-03-09] MEDS: hydroCHLOROthiazide 25 MG Tablet PO (08:22)
[2019-03-09] MEDS: Digoxin 125 MCG Tablet PO (08:23)
[2019-03-09] MEDS: buPROPion (SR) 150 MG Tablet.SA 450 MG PO (08:24)
[2019-03-09] MEDS: Pantoprazole Sodium 40 MG Tablet PO (08:24)
[2019-03-09] MEDS: Lisinopril 20 MG Tablet PO (08:24)
--- NOTE | 2019-03-09 11:51 | PCM.PROGNOTE ---
<Zuleyka Watt - Last Filed: 03/09/19 11:59> Subjective: Patient seen and examined. Complains of continuous chest pressure. Denies other associated symptoms. She reports chest pressure has remained the same and does not come and go. Plan for stress test in a.m., patient agreeable. - Physical Exam General: Alert, Oriented x3, Cooperative HEENT: Atraumatic, PERRLA, EOMI, Normocephalic Neck: Supple, No JVD, Negative Carotid Bruits Lungs: Clear to auscultation, Diminished Cardiovascular: - - Ventricular paced, no murmur Abdomen: Bowel Sounds Present, Soft, Non Tender, Non-Distended, Obese Extremities: No clubbing, No cyanosis, No edema, Capillary Refill Less than 3 Seconds, - - Right AKA Skin: No rashes, No breakdown, - - Prior coccyx pressure ulcer Musculoskeletal: No Tenderness to Palpation of Joints or Extremities Neurological: Cranial nerves II-XII grossly intact, Neuro grossly intact Psych/Mental Status: Normal Affect, Appropriate Vital Signs Temp Pulse Resp BP Pulse Ox 98.4 F 76 20 H 152/78 H 97 03/09/19 09:00 03/09/19 10:00 03/09/19 09:00 03/09/19 09:00 03/09/19 09:00 Oxygen Delivery Method Room Air Weight: 272 lb 4.334 oz Body Mass Index (BMI) 35.9 Finger Stick Blood Glucose 140 Intake and Output for Last 24 Hours 03/07/19 03/08/19 03/09/19 23:59 23:59 23:59 Intake Total 873 / 873 540 / 540 Balance 873 / 873 540 / 540 Laboratory Tests Past 24 Hrs 03/08/19 03/08/19 03/08/19 12:17 12:17 12:17 WBC 7.8 RBC 3.71 L Hgb 11.6 L Hct 34.6 L MCV 93.3 MCH 31.3 MCHC 33.5 RDW 13.8 RDW Differential 46.6 H Plt Count 161 MPV 13.4 H Immature Gran % (Auto) 0.300 Neut % (Auto) 74.2 H Lymph % (Auto) 14.8 L [place] % (Auto) 6.0 Eos % (Auto) 4.2 Baso % (Auto) 0.5 Absolute Neuts (auto) 5.8 Absolute Lymphs (auto) 1.16 Total Counted Not Reportable PT 20.4 H INR 1.8 Sodium 133 L Potassium 5.5 H Chloride 104 Carbon Dioxide 23.0 Anion Gap 6 BUN 95 H Creatinine 2.91 H Estim Creat Clear Calc 25.39 Est GFR (MDRD) Af Amer 21 L Est GFR (MDRD) Non-Af 18 L BUN/Creatinine Ratio 32.6 H Glucose 271 H Calcium 9.3 Troponin I < 0.015 TSH Digoxin 03/08/19 03/08/19 03/08/19 14:05 17:30 17:30 WBC RBC Hgb Hct MCV MCH MCHC RDW RDW Differential Plt Count MPV Immature Gran % (Auto) Neut % (Auto) Lymph % (Auto) [place] % (Auto) Eos % (Auto) Baso % (Auto) Absolute Neuts (auto) Absolute Lymphs (auto) Total Counted PT INR Sodium Potassium Chloride Carbon Dioxide Anion Gap BUN Creatinine Estim Creat Clear Calc Est GFR (MDRD) Af Amer Est GFR (MDRD) Non-Af BUN/Creatinine Ratio Glucose Calcium Troponin I < 0.015 TSH 1.84 Digoxin 1.54 03/08/19 03/09/19 03/09/19 20:40 05:41 05:41 WBC RBC Hgb Hct MCV MCH MCHC RDW RDW Differential Plt Count MPV Immature Gran % (Auto) Neut % (Auto) Lymph % (Auto) [place] % (Auto) Eos % (Auto) Baso % (Auto) Absolute Neuts (auto) Absolute Lymphs (auto) Total Counted PT 18.9 H INR 1.6 Sodium 139 Potassium 4.9 Chloride 108 H Carbon Dioxide 23.0 Anion Gap 8 BUN 80 H Creatinine 2.45 H Estim Creat Clear Calc 30.16 Est GFR (MDRD) Af Amer 26 L Est GFR (MDRD) Non-Af 22 L BUN/Creatinine Ratio 32.7 H Glucose 227 H Calcium 9.4 Troponin I < 0.015 TSH Digoxin POC Glucose 03/09/19 03/08/19 03/08/19 06:42 21:23 18:12 POC Glucose 254 H 222 H 110 Medical Necessity - Tobacco Use Smoking Status: Former smoker Assessment/Plan All Active Problems Non-pressure chronic ulcer of other part of left lower leg with fat layer exposed (Resolved) Pressure ulcer of ischium, stage 2 (Resolved) 1. Chest pain with history of CAD status post stents x3-EKG in ER without evidence of ischemia. Troponin negative x3. Nuclear stress test in a.m. Cardiology consult if nuclear stress demonstrates evidence of ischemia. 2. Acute kidney injury on chronic kidney disease stage IV with hyperkalemia-patient reports she is scheduled to establish with air brake rigger in [place] in a few weeks. Repeat BMP improved. Gentle IV fluids. Trend BMP. Hyperkalemia resolved. 3. History of ischemic cardiomyopathy-prior echocardiogram from 2011 showed an EF of 25 to 30%. No records of repeat echocardiogram, patient has followed with [facility] cardiology. 4. Type 2 diabetes mellitus-continue home insulin regimen with sliding scale insulin. Check hemoglobin A1c. 5. Paroxysmal atrial fibrillation-continue Coumadin, carvedilol. 6. History of DVT-on anticoagulation with Coumadin. 7. Hypothyroidism-not on regimen? TSH within normal limits. 8. Hypertension-stable, continue home carvedilol, hydrochlorothiazide, lisinopril regimen. 9. Hyperlipidemia-continue statin. 10. GERD-continue PPI regimen. 11. Depression/anxiety-continue home bupropion, lorazepam regimen. 12. History of tobacco dependence-reports she has not smoked tobacco products in several years. Encouraged continued cessation. 13. Marijuana use 14. Status post right ofaug-mzi-jttc amputation- PT/OT. 15. Status post pacemaker placement-patient reports this was secondary to fast heart rate and atrial fibrillation. 16. Obesity-encourage diet lifestyle modifications. 17. Prior coccyx decubitus ulcer-patient reports this is healed. Previously followed with wound center. Every 2 hour turns. 18. History of left lower extremity vein grafting/bypass-continue aspirin, statin. 19. Chronic normocytic anemia-at baseline. DVT prophylaxis-Coumadin This patient was seen by CATHRYN Diaz under the supervision of Dr. Goldstein. <Cristi Goldstein - Last Filed: 03/09/19 12:20> - Physical Exam Vital Signs Temp Pulse Resp BP Pulse Ox 98.4 F 76 20 H 152/78 H 97 03/09/19 09:00 03/09/19 10:00 03/09/19 09:00 03/09/19 09:00 03/09/19 09:00 Oxygen Delivery Method Room Air Weight: 123.5 kg Body Mass Index (BMI) 35.9 Finger Stick Blood Glucose 140 Intake and Output for Last 24 Hours 03/07/19 03/08/19 03/09/19 23:59 23:59 23:59 Intake Total 873 / 873 1814 / 1814 Balance 873 / 873 1814 / 1814 Laboratory Tests Past 24 Hrs 03/08/19 03/08/19 03/08/19 12:17 12:17 12:17 WBC 7.8 RBC 3.71 L Hgb 11.6 L Hct 34.6 L MCV 93.3 MCH 31.3 MCHC 33.5 RDW 13.8 RDW Differential 46.6 H Plt Count 161 MPV 13.4 H Immature Gran % (Auto) 0.300 Neut % (Auto) 74.2 H Lymph % (Auto) 14.8 L [place] % (Auto) 6.0 Eos % (Auto) 4.2 Baso % (Auto) 0.5 Absolute Neuts (auto) 5.8 Absolute Lymphs (auto) 1.16 Total Counted Not Reportable PT 20.4 H INR 1.8 Sodium 133 L Potassium 5.5 H Chloride 104 Carbon Dioxide 23.0 Anion Gap 6 BUN 95 H Creatinine 2.91 H Estim Creat Clear Calc 25.39 Est GFR (MDRD) Af Amer 21 L Est GFR (MDRD) Non-Af 18 L BUN/Creatinine Ratio 32.6 H Glucose 271 H Calcium 9.3 Troponin I < 0.015 TSH Digoxin 03/08/19 03/08/19 03/08/19 14:05 17:30 17:30 WBC RBC Hgb Hct MCV MCH MCHC RDW RDW Differential Plt Count MPV Immature Gran % (Auto) Neut % (Auto) Lymph % (Auto) [place] % (Auto) Eos % (Auto) Baso % (Auto) Absolute Neuts (auto) Absolute Lymphs (auto) Total Counted PT INR Sodium Potassium Chloride Carbon Dioxide Anion Gap BUN Creatinine Estim Creat Clear Calc Est GFR (MDRD) Af Amer Est GFR (MDRD) Non-Af BUN/Creatinine Ratio Glucose Calcium Troponin I < 0.015 TSH 1.84 Digoxin 1.54 03/08/19 03/09/19 03/09/19 20:40 05:41 05:41 WBC RBC Hgb Hct MCV MCH MCHC RDW RDW Differential Plt Count MPV Immature Gran % (Auto) Neut % (Auto) Lymph % (Auto) [place] % (Auto) Eos % (Auto) Baso % (Auto) Absolute Neuts (auto) Absolute Lymphs (auto) Total Counted PT 18.9 H INR 1.6 Sodium 139 Potassium 4.9 Chloride 108 H Carbon Dioxide 23.0 Anion Gap 8 BUN 80 H Creatinine 2.45 H Estim Creat Clear Calc 30.16 Est GFR (MDRD) Af Amer 26 L Est GFR (MDRD) Non-Af 22 L BUN/Creatinine Ratio 32.7 H Glucose 227 H Calcium 9.4 Troponin I < 0.015 TSH Digoxin POC Glucose 03/09/19 03/09/19 03/08/19 11:31 06:42 21:23 POC Glucose 355 H 254 H 222 H 03/08/19 18:12 POC Glucose 110 Assessment/Plan This patient was seen in conjunction with CATHRYN Diaz . I have independently interviewed and examined the patient and reviewed pertinent historical, laboratory, and other data. Please refer to CATHRYN Diaz note for details of this patient's presentation, findings, and recommendations. I have reviewed CATHRYN Diaz note and concur with documented findings. In brief, patient is a 71-year-old lady presented with chest discomfort patient has been placed on a monitored bed where CA is being ruled out with plans for patient to undergo a nuclear stress test on 03/10/2019 if CA is ruled out Physical Examination: GENERAL: cooperative HEENT: Atraumatic; EYES; Anicteric, Normal Conjunctiva NECK; supple, normal thyroid, RESPIRATORY: Diminished to auscultation CARDIOVASCULAR: Regular S1 S2, GI: soft, non-tender, normoactive bowel sounds, : No Renal angle tenderness; NEURO: Awake; no lateralizing signs. PSYCH; Normal affect Assessment: 1. Chest pain 2. Acute on chronic kidney disease stage III 3. History of previous DVT status post IVC filter 4. Obesity with BMI of 35.9 5. Ischemic cardiomyopathy with an ejection fraction of 25 to 30% 6. Hypertension 7. Diabetes mellitus type 2 8. Paroxysmal atrial fibrillation 9. Hypothyroidism 10. Depression with anxiety 11. History of conduction system disorder status post pacemaker placement 12. Right above-knee amputation 13. Dyslipidemia 14. Tobacco dependence counseled on cessation 15. Anemia secondary to anemia of chronic disorder 16. Peripheral vascular disease Recommendations: 1. I have discussed the results of my overview and impressions with the patient 2. Options for management were reviewed Code Visit OBSV E&M: 97608 Subsequent observation care L3
--- NOTE | 2019-03-09 11:59 | PN_ITS ---
<Zuleyka Watt - Last Filed: 03/09/19 11:59> Subjective: Patient seen and examined. Complains of continuous chest pressure. Denies other associated symptoms. She reports chest pressure has remained the same and does not come and go. Plan for stress test in a.m., patient agreeable. - Physical Exam General: Alert, Oriented x3, Cooperative HEENT: Atraumatic, PERRLA, EOMI, Normocephalic Neck: Supple, No JVD, Negative Carotid Bruits Lungs: Clear to auscultation, Diminished Cardiovascular: - - Ventricular paced, no murmur Abdomen: Bowel Sounds Present, Soft, Non Tender, Non-Distended, Obese Extremities: No clubbing, No cyanosis, No edema, Capillary Refill Less than 3 Seconds, - - Right AKA Skin: No rashes, No breakdown, - - Prior coccyx pressure ulcer Musculoskeletal: No Tenderness to Palpation of Joints or Extremities Neurological: Cranial nerves II-XII grossly intact, Neuro grossly intact Psych/Mental Status: Normal Affect, Appropriate Vital Signs Temp Pulse Resp BP Pulse Ox 98.4 F 76 20 H 152/78 H 97 03/09/19 09:00 03/09/19 10:00 03/09/19 09:00 03/09/19 09:00 03/09/19 09:00 Oxygen Delivery Method Room Air Weight: 272 lb 4.334 oz Body Mass Index (BMI) 35.9 Finger Stick Blood Glucose 140 Intake and Output for Last 24 Hours 03/07/19 03/08/19 03/09/19 23:59 23:59 23:59 Intake Total 873 / 873 540 / 540 Balance 873 / 873 540 / 540 Laboratory Tests Past 24 Hrs 03/08/19 03/08/19 03/08/19 12:17 12:17 12:17 WBC 7.8 RBC 3.71 L Hgb 11.6 L Hct 34.6 L MCV 93.3 MCH 31.3 MCHC 33.5 RDW 13.8 RDW Differential 46.6 H Plt Count 161 MPV 13.4 H Immature Gran % (Auto) 0.300 Neut % (Auto) 74.2 H Lymph % (Auto) 14.8 L [place] % (Auto) 6.0 Eos % (Auto) 4.2 Baso % (Auto) 0.5 Absolute Neuts (auto) 5.8 Absolute Lymphs (auto) 1.16 Total Counted Not Reportable PT 20.4 H INR 1.8 Sodium 133 L Potassium 5.5 H Chloride 104 Carbon Dioxide 23.0 Anion Gap 6 BUN 95 H Creatinine 2.91 H Estim Creat Clear Calc 25.39 Est GFR (MDRD) Af Amer 21 L Est GFR (MDRD) Non-Af 18 L BUN/Creatinine Ratio 32.6 H Glucose 271 H Calcium 9.3 Troponin I < 0.015 TSH Digoxin 03/08/19 03/08/19 03/08/19 14:05 17:30 17:30 WBC RBC Hgb Hct MCV MCH MCHC RDW RDW Differential Plt Count MPV Immature Gran % (Auto) Neut % (Auto) Lymph % (Auto) [place] % (Auto) Eos % (Auto) Baso % (Auto) Absolute Neuts (auto) Absolute Lymphs (auto) Total Counted PT INR Sodium Potassium Chloride Carbon Dioxide Anion Gap BUN Creatinine Estim Creat Clear Calc Est GFR (MDRD) Af Amer Est GFR (MDRD) Non-Af BUN/Creatinine Ratio Glucose Calcium Troponin I < 0.015 TSH 1.84 Digoxin 1.54 03/08/19 03/09/19 03/09/19 20:40 05:41 05:41 WBC RBC Hgb Hct MCV MCH MCHC RDW RDW Differential Plt Count MPV Immature Gran % (Auto) Neut % (Auto) Lymph % (Auto) [place] % (Auto) Eos % (Auto) Baso % (Auto) Absolute Neuts (auto) Absolute Lymphs (auto) Total Counted PT 18.9 H INR 1.6 Sodium 139 Potassium 4.9 Chloride 108 H Carbon Dioxide 23.0 Anion Gap 8 BUN 80 H Creatinine 2.45 H Estim Creat Clear Calc 30.16 Est GFR (MDRD) Af Amer 26 L Est GFR (MDRD) Non-Af 22 L BUN/Creatinine Ratio 32.7 H Glucose 227 H Calcium 9.4 Troponin I < 0.015 TSH Digoxin POC Glucose 03/09/19 03/08/19 03/08/19 06:42 21:23 18:12 POC Glucose 254 H 222 H 110 Medical Necessity - Tobacco Use Smoking Status: Former smoker Assessment/Plan All Active Problems Non-pressure chronic ulcer of other part of left lower leg with fat layer exposed (Resolved) Pressure ulcer of ischium, stage 2 (Resolved) 1. Chest pain with history of CAD status post stents x3-EKG in ER without evidence of ischemia. Troponin negative x3. Nuclear stress test in a.m. Cardiology consult if nuclear stress demonstrates evidence of ischemia. 2. Acute kidney injury on chronic kidney disease stage IV with hyperkalemia- patient reports she is scheduled to establish with sugar cane farm manager in [place] in a few weeks. Repeat BMP improved. Gentle IV fluids. Trend BMP. Hyperkalemia resolved. 3. History of ischemic cardiomyopathy-prior echocardiogram from 2011 showed an EF of 25 to 30%. No records of repeat echocardiogram, patient has followed with [facility] cardiology. 4. Type 2 diabetes mellitus-continue home insulin regimen with sliding scale insulin. Check hemoglobin A1c. 5. Paroxysmal atrial fibrillation-continue Coumadin, carvedilol. 6. History of DVT-on anticoagulation with Coumadin. 7. Hypothyroidism-not on regimen? TSH within normal limits. 8. Hypertension-stable, continue home carvedilol, hydrochlorothiazide, lisinopril regimen. 9. Hyperlipidemia-continue statin. 10. GERD-continue PPI regimen. 11. Depression/anxiety-continue home bupropion, lorazepam regimen. 12. History of tobacco dependence-reports she has not smoked tobacco products in several years. Encouraged continued cessation. 13. Marijuana use 14. Status post right ftnbf-gjx-cuts amputation- PT/OT. 15. Status post pacemaker placement-patient reports this was secondary to fast heart rate and atrial fibrillation. 16. Obesity-encourage diet lifestyle modifications. 17. Prior coccyx decubitus ulcer-patient reports this is healed. Previously followed with wound center. Every 2 hour turns. 18. History of left lower extremity vein grafting/bypass-continue aspirin, statin. 19. Chronic normocytic anemia-at baseline. DVT prophylaxis-Coumadin This patient was seen by CATHRYN Diaz under the supervision of Dr. Goldstein. <Cristi Goldstein - Last Filed: 03/09/19 12:20> - Physical Exam Vital Signs Temp Pulse Resp BP Pulse Ox 98.4 F 76 20 H 152/78 H 97 03/09/19 09:00 03/09/19 10:00 03/09/19 09:00 03/09/19 09:00 03/09/19 09:00 Oxygen Delivery Method Room Air Weight: 123.5 kg Body Mass Index (BMI) 35.9 Finger Stick Blood Glucose 140 Intake and Output for Last 24 Hours 03/07/19 03/08/19 03/09/19 23:59 23:59 23:59 Intake Total 873 / 873 1814 / 1814 Balance 873 / 873 1814 / 1814 Laboratory Tests Past 24 Hrs 03/08/19 03/08/19 03/08/19 12:17 12:17 12:17 WBC 7.8 RBC 3.71 L Hgb 11.6 L Hct 34.6 L MCV 93.3 MCH 31.3 MCHC 33.5 RDW 13.8 RDW Differential 46.6 H Plt Count 161 MPV 13.4 H Immature Gran % (Auto) 0.300 Neut % (Auto) 74.2 H Lymph % (Auto) 14.8 L [place] % (Auto) 6.0 Eos % (Auto) 4.2 Baso % (Auto) 0.5 Absolute Neuts (auto) 5.8 Absolute Lymphs (auto) 1.16 Total Counted Not Reportable PT 20.4 H INR 1.8 Sodium 133 L Potassium 5.5 H Chloride 104 Carbon Dioxide 23.0 Anion Gap 6 BUN 95 H Creatinine 2.91 H Estim Creat Clear Calc 25.39 Est GFR (MDRD) Af Amer 21 L Est GFR (MDRD) Non-Af 18 L BUN/Creatinine Ratio 32.6 H Glucose 271 H Calcium 9.3 Troponin I < 0.015 TSH Digoxin 03/08/19 03/08/19 03/08/19 14:05 17:30 17:30 WBC RBC Hgb Hct MCV MCH MCHC RDW RDW Differential Plt Count MPV Immature Gran % (Auto) Neut % (Auto) Lymph % (Auto) [place] % (Auto) Eos % (Auto) Baso % (Auto) Absolute Neuts (auto) Absolute Lymphs (auto) Total Counted PT INR Sodium Potassium Chloride Carbon Dioxide Anion Gap BUN Creatinine Estim Creat Clear Calc Est GFR (MDRD) Af Amer Est GFR (MDRD) Non-Af BUN/Creatinine Ratio Glucose Calcium Troponin I < 0.015 TSH 1.84 Digoxin 1.54 03/08/19 03/09/19 03/09/19 20:40 05:41 05:41 WBC RBC Hgb Hct MCV MCH MCHC RDW RDW Differential Plt Count MPV Immature Gran % (Auto) Neut % (Auto) Lymph % (Auto) [place] % (Auto) Eos % (Auto) Baso % (Auto) Absolute Neuts (auto) Absolute Lymphs (auto) Total Counted PT 18.9 H INR 1.6 Sodium 139 Potassium 4.9 Chloride 108 H Carbon Dioxide 23.0 Anion Gap 8 BUN 80 H Creatinine 2.45 H Estim Creat Clear Calc 30.16 Est GFR (MDRD) Af Amer 26 L Est GFR (MDRD) Non-Af 22 L BUN/Creatinine Ratio 32.7 H Glucose 227 H Calcium 9.4 Troponin I < 0.015 TSH Digoxin POC Glucose 03/09/19 03/09/19 03/08/19 11:31 06:42 21:23 POC Glucose 355 H 254 H 222 H 03/08/19 18:12 POC Glucose 110 Assessment/Plan This patient was seen in conjunction with CATHRYN Diaz . I have independently interviewed and examined the patient and reviewed pertinent historical, laboratory, and other data. Please refer to CATHRYN Diaz note for details of this patient's presentation, findings, and recommendations. I have reviewed CATHRYN Diaz note and concur with documented findings. In brief, patient is a 71-year-old lady presented with chest discomfort patient has been placed on a monitored bed where [place] is being ruled out with plans for patient to undergo a nuclear stress test on 03/10/2019 if OK is ruled out Physical Examination: GENERAL: cooperative HEENT: Atraumatic; EYES; Anicteric, Normal Conjunctiva NECK; supple, normal thyroid, RESPIRATORY: Diminished to auscultation CARDIOVASCULAR: Regular S1 S2, GI: soft, non-tender, normoactive bowel sounds, : No Renal angle tenderness; NEURO: Awake; no lateralizing signs. PSYCH; Normal affect Assessment: 1. Chest pain 2. Acute on chronic kidney disease stage III 3. History of previous DVT status post IVC filter 4. Obesity with BMI of 35.9 5. Ischemic cardiomyopathy with an ejection fraction of 25 to 30% 6. Hypertension 7. Diabetes mellitus type 2 8. Paroxysmal atrial fibrillation 9. Hypothyroidism 10. Depression with anxiety 11. History of conduction system disorder status post pacemaker placement 12. Right above-knee amputation 13. Dyslipidemia 14. Tobacco dependence counseled on cessation 15. Anemia secondary to anemia of chronic disorder 16. Peripheral vascular disease Recommendations: 1. I have discussed the results of my overview and impressions with the patient 2. Options for management were reviewed Code Visit OBSV E&M: 22587 Subsequent observation care L3
[2019-03-09 12:06] LABS: Bedside Glucose 355 mg/dL (70-110)
[2019-03-09 13:29] LABS: Hemoglobin A1c 8.2 % (4.2-6.3)
[2019-03-09 17:16] LABS: Bedside Glucose 238 mg/dL (70-110)
[2019-03-09] MEDS: HYDROcodone Bitartrate/Apap 5/325 Tablet PO (18:29)
[2019-03-09] MEDS: Atorvastatin Calcium 40 MG Tablet PO (21:18)
[2019-03-09 21:31] LABS: Bedside Glucose 175 mg/dL (70-110)
[2019-03-10] VITALS (9 sets, daily range): BP systolic 110–137; BP diastolic 56–76; PULSE 75–83; RESP 14–16; TEMP 36.6; O2SAT 95–98
[2019-03-10] MEDS: HYDROcodone Bitartrate/Apap 5/325 Tablet PO ×2 (00:17→14:59)
[2019-03-10] MEDS: 0.9% Normal Saline 1,000 ML 100 ML IV (00:18)
[2019-03-10] MEDS: Lisinopril 20 MG Tablet PO (05:23)
[2019-03-10] MEDS: Gabapentin 600 MG Tablet PO ×2 (05:23→14:55)
[2019-03-10] MEDS: Aspirin 81 MG TAB.CHEW PO (05:23)
--- NOTE | 2019-03-10 05:55 | EKG12_ITS ---
Test Reason : AM EKG Blood Pressure : / mmHG Vent. Rate : 079 BPM Atrial Rate : 060 BPM P-R Int : 000 ms QRS Dur : 214 ms QT Int : 486 ms P-R-T Axes : 000 203 055 degrees QTc Int : 557 ms Ventricular-paced rhythm Abnormal ECG Confirmed by LIO LOPEZ, HINA ([id number]), communications editor ISAIAH RIOS ([id number]) on 03/12/2019 11:53:09 AM Referred By: Feroz Oqunedo Confirmed By:HINA VACA MD
[2019-03-10 06:03] LABS: Absolute Lymphocyte Count 1.66 X10^3/ul (0.83-4.51); Basophil# 0.02 X10^3/uL; Basophil% 0.4 % (0-1); Eosinophil# 0.27 X10^3/uL; Hematocrit 30.5 % (37-47); Hemoglobin 10.3 g/dl (12.0-15.0); Lymphocyte # 1.66 X10^3/ul (4.0); Lymphocyte % 30.7 % (19-41); Mean Corp Hgb Conc 33.8 g/gl (32-36); Mean Corpuscular Hgb 31.4 pg (27.0-32.0); Mean Platelet Vol. 12.1 fl (6.2-12.0); Monocyte# 0.48 X10^3/uL; Monocyte% 8.9 % (0-10); Neutrophil # 2.97 X10^3/uL (2.7-7.7); Neutrophil % 54.8 % (47-70); Platelet Count 148 K/mm3 (150-450); RBC Distribution Width CV 13.2 % (11.6-14.6); RBC Distribution Width SD 42.9 fl (35.1-43.9); Red Blood Count 3.28 M/mm3 (4.2-5.4); White Blood Count 5.4 K/mm3 (4.4-11.0)
[2019-03-10 06:06] LABS: POSITIVE COUNT NO; POSITIVE DIFFERENTIAL NO; POSITIVE MORPHOLOGY NO; Partial Thromboplast Time 37.4 Seconds (24.1-36.2)
[2019-03-10 06:26] LABS: Bedside Glucose 97 mg/dL (70-110)
[2019-03-10 06:32] LABS: Anion Gap 8 (5-15); BUN 70 mg/dL (7-18); BUN/Creat Ratio 33.2 RATIO (10-20); Calcium,Total 9.4 mg/dL (8.5-10.1); Chloride 111 mmol/L (98-107); Creatinine, Serum 2.11 mg/dL (0.55-1.02); EST Glomerular Filtration Rate 26 mL/min (>60); Est Glom Filt Rate - Afr Amer 31 mL/min (>60); Estimated Creatinine Clearance 35.01 ml/min; Glucose 95 mg/dL (74-106); Sodium Level 142 mmol/L (136-145)
[2019-03-10 06:33] LABS: International Normalized Ratio 1.7; Prothrombin Time (Protime)PT. 19.7 SECONDS (11.7-14.9)
[2019-03-10] MEDS: Digoxin 125 MCG Tablet PO (09:35)
[2019-03-10] MEDS: traMADol 50 MG Tablet PO ×2 (09:36→16:56)
[2019-03-10] MEDS: Pantoprazole Sodium 40 MG Tablet PO (09:37)
[2019-03-10 09:46] LABS: Bedside Glucose 111 mg/dL (70-110)
--- NOTE | 2019-03-10 11:47 | DCINST_ITS ---
You will use the following diet at home:: Calorie/Carbohydrate Controlled (specify 1200, 1400, etc), Cardiac Discharge Activity: Return to Normal Activity Call your doctor if you observe: Shortness of breath, Dizziness, Fainting spells, Chest pain Allergies/Adverse Reactions: Allergies codeine Allergy (Verified 03/06/19 18:31) Rash latex Allergy (Verified 03/06/19 18:31) Itching Penicillins Allergy (Verified 03/11/18 20:20) Swelling dexamethasone [From Maxidex] Adverse Reaction (Verified 03/06/19 18:31) Unknown iodine Adverse Reaction (Verified 03/06/19 18:31) Itching morphine Adverse Reaction (Verified 03/06/19 18:31) Other Medications to take at Discharge Lisinopril [Zestril] 20 mg PO DAILY 07/02/13 Lorazepam 0.5 mg PO TID PRN PRN 07/02/13 Albuterol IH (ProAir) [Proair Hfa] 2 puff INHALATION Q4H PRN PRN 07/19/13 Nitroglycerin [Nitrostat] 0.4 mg SL PRN PRN 07/19/13 Warfarin [Coumadin] 5 mg PO TUTHSA 07/19/13 Atorvastatin Calcium [Lipitor] 40 mg PO QHS 06/02/15 Digoxin [Lanoxin] 125 mcg PO DAILY 06/02/15 Esomeprazole Mag Trihydrate [Nexium] 40 mg PO DAILY 06/02/15 Gabapentin [Neurontin] 600 mg PO TID 06/02/15 Hydrochlorothiazide 25 mg PO DAILY 06/02/15 Cholecalciferol (Vitamin D3) [Vitamin D3] 50,000 units PO MO 03/08/16 Insulin U-500 [Humulin R U-500 (BKC)] 70 unit SC DINNER 03/08/16 Insulin U-500 [Humulin R U-500 (BKC)] 80 units SC BREAKFAST 03/08/16 Warfarin [Coumadin] 7.5 mg PO SUMOWEFR 03/08/16 buPROPion SR [Wellbutrin SR (150mg tablets)] 450 mg PO DAILY 03/08/16 Carvedilol [Coreg (Beta Yamilka)] 25 mg PO BID 07/07/17 Aspirin [Aspirin, Baby] 81 mg PO DAILY@0800 08/15/17 Furosemide 40 mg PO DAILY 03/06/19 traMADol [Ultram] 50 mg PO 4X/DAY 03/08/19 Primary Care Physician: Leslie Bird MD [Primary Care Provider] - Please follow up with your Primary Care Physician in: 1 Week Test Results: Test results from this visit will be discussed in further detail at your follow- up appointment, if applicable. Please Follow Up With: Primary Cylinder Die Machine Helper When: 1-2 Weeks Please Follow Up With: Primary Pals Nurse When: As previously scheduled or within 1 week Proposed Discharge Date: 03/10/19
[2019-03-10] MEDS: Ondansetron 4 MG/2 ML Vial IV (12:39)
[2019-03-10] MEDS: 0.9% NaCl Peripheral Flush Adult/Peds IV (12:39)
[2019-03-10 12:41] LABS: Bedside Glucose 251 mg/dL (70-110)
--- NOTE | 2019-03-10 12:57 | CASEMGMT ---
RN CM NOTE: To room to talk with pt. Pt resting in bed, awake/alert/oriented. Introduced self and role of RN CM. Reviewed JACKSON form with pt, questions, answered, form signed by pt, copy made and placed on chart, and original given to pt. Harinder RUSSON RN CM
--- NOTE | 2019-03-10 13:08 | PCM.DC.SUM ---
<Zuleyka Watt - Last Filed: 03/10/19 15:25> Discharge Date and Diagnosis Date of Admission: 03/08/19 Date of Discharge: 03/10/19 - Primary Discharge Diagnosis 1. Chest pain/abnormal stress test with history of CAD status post stents x3- ACS ruled out 2. Acute kidney injury on chronic kidney disease stage IV with hyperkalemia 3. History of ischemic cardiomyopathy 4. Type 2 diabetes mellitus 5. Paroxysmal atrial fibrillation 6. History of DVT 7. Hypothyroidism 8. Hypertension 9. Hyperlipidemia 10. GERD 11. Depression/anxiety 12. History of tobacco dependence 13. Marijuana use 14. Status post right [id number] amputation 15. Status post pacemaker placement 16. Obesity 17. Prior coccyx decubitus ulcer 18. History of left lower extremity vein grafting/bypass 19. Chronic normocytic anemia - Secondary Discharge Diagnosis Chronic Problems S/P AKA (above knee amputation) (Chronic) Morbid obesity (Chronic) Type II diabetes mellitus (Chronic) Ischemic cardiomyopathy (Chronic) History of atrial fibrillation (Chronic) History of DVT of lower extremity (Chronic) History of hypothyroidism (Chronic) coronary artery disease,prior stents. (Chronic) Tobacco abuse (Chronic) Hospital Course and Treatment Imaging Results: Diagnostic Data Chest X-Ray 03/08/19 13:16 IMPRESSION: 1. No airspace consolidation or pleural effusion. 2. Stable chronic vascular congestion. Cardiomegaly. Electronically Signed: Mikey Hernandes MD at 14:03 EDT , Service support , Dr. Isabel- Cardiology Operations: None Procedures: Stress test Summary of Care Provided: The patient is a 58 year old F admitted 03/08/2019 due to chest pain. 1. Chest pain/abnormal stress test with history of CAD status post stents x3-EKG in ER without evidence of ischemia. Troponin negative x3. Nuclear stress test completed today which showed cardiomyopathy, previous mid lateral infarct, mid anterior lateral ischemia, apical lateral infarct. Cardiology consulted. She will follow-up with Dr. Isabel in 2 to 4 weeks, anticipate outpatient cardiac catheterization. Patient informed she will need to follow-up with nephrology in the meantime for further evaluation regarding kidney function. Continue aspirin, statin, carvedilol, Coumadin. Patient started on Imdur 30 mg daily as well. 2. Acute kidney injury on chronic kidney disease stage IV with hyperkalemia-patient reports she is scheduled to establish with information tech in [place] in a few weeks. Repeat BMP improved. Hyperkalemia resolved. Follow-up with nephrology as scheduled. 3. History of ischemic cardiomyopathy-prior echocardiogram from 2011 showed an EF of 25 to 30%. No records of repeat echocardiogram, patient has followed with [facility] cardiology. 4. Type 2 diabetes mellitus-continue home insulin regimen. Hemoglobin A1c 8.2%. 5. Paroxysmal atrial fibrillation-continue Coumadin, carvedilol. 6. History of DVT-on anticoagulation with Coumadin. 7. Hypothyroidism-not on regimen? TSH within normal limits. 8. Hypertension-stable, continue home carvedilol, hydrochlorothiazide, lisinopril regimen. 9. Hyperlipidemia-continue statin. 10. GERD-continue PPI regimen. 11. Depression/anxiety-continue home bupropion, lorazepam regimen. 12. History of tobacco dependence-reports she has not smoked tobacco products in several years. Encouraged continued cessation. 13. Marijuana use 14. Status post right [id number] amputation- PT/OT. 15. Status post pacemaker placement-patient reports this was secondary to fast heart rate and atrial fibrillation. 16. Obesity-encourage diet lifestyle modifications. 17. Prior coccyx decubitus ulcer-patient reports this is healed. Previously followed with wound center. 18. History of left lower extremity vein grafting/bypass-continue aspirin, statin. 19. Chronic normocytic anemia-at baseline. General: Alert, Oriented x3, Cooperative HEENT: Atraumatic, PERRLA, EOMI, Normocephalic Neck: Supple, No JVD, Negative Carotid Bruits Lungs: Clear to auscultation, Diminished Cardiovascular: - - Ventricular paced, no murmur Abdomen: Bowel Sounds Present, Soft, Non Tender, Non-Distended, Obese Extremities: No clubbing, No cyanosis, No edema, Capillary Refill Less than 3 Seconds, Right AKA Skin: No rashes, No breakdown, - - Prior coccyx pressure ulcer Musculoskeletal: No Tenderness to Palpation of Joints or Extremities Neurological: Cranial nerves II-XII grossly intact, Neuro grossly intact Psych/Mental Status: Normal Affect, Appropriate Patient seen and examined prior to discharge. Physical assessment as noted above. Patient is stable for discharge with follow up recommendations as noted above. This patient was seen by CATHRYN Diaz under the supervision of Dr. Ornelas. - Physical Exam Vital Signs Temp Pulse Resp BP Pulse Ox 97.8 F 76 14 118/73 96 03/10/19 09:34 03/10/19 09:35 03/10/19 09:34 03/10/19 09:35 03/10/19 09:34 Oxygen Delivery Method Room Air Weight: 272 lb 4.334 oz Body Mass Index (BMI) 35.9 Finger Stick Blood Glucose 140 Intake and Output for Last 24 Hours 03/08/19 03/09/19 03/10/19 23:59 23:59 23:59 Intake Total 873 / 873 3779 / 3779 1092 / 1092 Output Total 100 / 100 Balance 873 / 873 3779 / 3779 992 / 992 Laboratory Tests Past 24 Hrs 03/09/19 03/10/19 03/10/19 12:15 05:25 05:25 WBC RBC Hgb Hct MCV MCH MCHC RDW RDW Differential Plt Count MPV Immature Gran % (Auto) Neut % (Auto) Lymph % (Auto) Jessamine % (Auto) Eos % (Auto) Baso % (Auto) Absolute Neuts (auto) Absolute Lymphs (auto) Total Counted PT 19.7 H INR 1.7 APTT 37.4 H Sodium 142 Potassium 5.0 Chloride 111 H Carbon Dioxide 23.0 Anion Gap 8 BUN 70 H Creatinine 2.11 H Estim Creat Clear Calc 35.01 Est GFR (MDRD) Af Amer 31 L Est GFR (MDRD) Non-Af 26 L BUN/Creatinine Ratio 33.2 H Glucose 95 Hemoglobin A1c 8.2 H Calcium 9.4 03/10/19 05:25 WBC 5.4 RBC 3.28 L Hgb 10.3 L Hct 30.5 L MCV 93.0 MCH 31.4 MCHC 33.8 RDW 13.2 RDW Differential 42.9 Plt Count 148 L MPV 12.1 H Immature Gran % (Auto) 0.200 Neut % (Auto) 54.8 Lymph % (Auto) 30.7 Jessamine % (Auto) 8.9 Eos % (Auto) 5.0 Baso % (Auto) 0.4 Absolute Neuts (auto) 3.0 Absolute Lymphs (auto) 1.66 Total Counted Not Reportable PT INR APTT Sodium Potassium Chloride Carbon Dioxide Anion Gap BUN Creatinine Estim Creat Clear Calc Est GFR (MDRD) Af Amer Est GFR (MDRD) Non-Af BUN/Creatinine Ratio Glucose Hemoglobin A1c Calcium POC Glucose 03/10/19 03/10/19 03/10/19 12:35 09:40 06:21 POC Glucose 251 H 111 H 97 03/09/19 03/09/19 21:14 16:34 POC Glucose 175 H 238 H Discharge Diet: Low fat/ Low Cholesterol, Carb Control Diet Discharge Activity: Return to Normal Activity Call your doctor if you observe: Shortness of breath, Dizziness, Fainting spells, Chest pain Home Medications: Medications to take at Discharge Lisinopril [Zestril] 20 mg PO DAILY 07/02/13 Lorazepam 0.5 mg PO TID PRN PRN 07/02/13 Albuterol IH (ProAir) [Proair Hfa] 2 puff INHALATION Q4H PRN PRN 07/19/13 Nitroglycerin [Nitrostat] 0.4 mg SL PRN PRN 07/19/13 Warfarin [Coumadin] 5 mg PO TUTHSA 07/19/13 Atorvastatin Calcium [Lipitor] 40 mg PO QHS 06/02/15 Digoxin [Lanoxin] 125 mcg PO DAILY 06/02/15 Esomeprazole Mag Trihydrate [Nexium] 40 mg PO DAILY 06/02/15 Gabapentin [Neurontin] 600 mg PO TID 06/02/15 Hydrochlorothiazide 25 mg PO DAILY 06/02/15 Cholecalciferol (Vitamin D3) [Vitamin D3] 50,000 units PO MO 03/08/16 Insulin U-500 [Humulin R U-500 (BKC)] 70 unit SC DINNER 03/08/16 Insulin U-500 [Humulin R U-500 (BKC)] 80 units SC BREAKFAST 03/08/16 Warfarin [Coumadin] 7.5 mg PO SUMOWEFR 03/08/16 buPROPion SR [Wellbutrin SR (150mg tablets)] 450 mg PO DAILY 03/08/16 Carvedilol [Coreg (Beta Yamilka)] 25 mg PO BID 07/07/17 Aspirin [Aspirin, Baby] 81 mg PO DAILY@0800 08/15/17 Furosemide 40 mg PO DAILY 03/06/19 traMADol [Ultram] 50 mg PO 4X/DAY 03/08/19 Isosorbide Mononitrate [Imdur] 30 mg PO DAILY #30 tablet 03/10/19 Following Prescrptions Were Given to Patient: Isosorbide Mononitrate [Imdur] 30 mg PO DAILY #30 tablet Primary Care Physician: Leslie Bird MD [Primary Care Provider] - Please follow up with your Primary Care Physician in: 1 Week Please Follow Up With: Toney Isabel MD When: 2-4 Weeks Please Follow Up With: Primary Structural Rigger When: As previously scheduled or within 1 week Disposition: Home Minutes spent on discharge:: 35 Patient Condition:: Stable Medical Necessity - Tobacco Use Smoking Status: Former smoker Meaningful Use Info Meaningful Use Diagnoses (Choose all that apply): None applicable <Honorio Ornelas E - Last Filed: 03/10/19 15:42> Discharge Date and Diagnosis - Secondary Discharge Diagnosis Chronic Problems S/P AKA (above knee amputation) (Chronic) Morbid obesity (Chronic) Type II diabetes mellitus (Chronic) Ischemic cardiomyopathy (Chronic) History of atrial fibrillation (Chronic) History of DVT of lower extremity (Chronic) History of hypothyroidism (Chronic) coronary artery disease,prior stents. (Chronic) Tobacco abuse (Chronic) Hospital Course and Treatment Imaging Results: 03/10/19 10:00 Nuclear Stress Test - Chemical [NM] Routine Summary of Care Provided: Hospitalist note: Discharge summary reviewed as above and I concur with the above discharge plan. Patient was admitted for chest pain for evaluation. EKG revealed no acute ischemic changes. Troponin was negative x3. She underwent nuclear stress test that revealed ejection fraction of 32%, cardiomyopathy, previous mild lateral infarct, mid anterolateral ischemia, apical lateral infarct. Cardiology consulted and evaluated the patient and recommended follow-up with cardiology as outpatient in 2 to 4 weeks on plan is to do cardiac catheterization as outpatient. Patient was found to have acute kidney injury double stage IV chronic kidney disease and and kidney function improved with IV fluid treatment. Her potassium was slightly elevated which was normalized. Patient discharged home in a stable medical condition, discharged on her previous home medications without any changes, continued on Coumadin, recommended follow-up with PCP in 1 week and follow-up with cardiology according to Dr. Isabel, recommended to up with nephrology in 1 week as well. - Physical Exam General: Alert, Oriented x3, Cooperative, No apparent distress. HEENT: Atraumatic, PERRLA, EOMI. Neck: Supple, No JVD, Negative Carotid Bruits, Trachea Midline, Thyroid Normal. Lungs: Diminished breath sounds bilateral, otherwise clear, No rhonchi, No wheeze, No rales. Cardiovascular: Regular rate, Regular Rhythm, Normal S1, Normal S2, PMI Normal. Abdomen: Bowel Sounds Present, Soft, Non Tender, Non-Distended, No Hepato-splenomegaly. Extremities: No clubbing, No cyanosis, No edema Skin: No rashes, No breakdown Neurological: Neuro grossly intact Vital Signs are stable. This note was generated with [employer] dictation software. It may contain incorrect words, spelling, and punctuation that were not noted in checking the note before signing. - Physical Exam Vital Signs Temp Pulse Resp BP Pulse Ox 97.8 F 75 15 137/70 H 98 03/10/19 14:43 03/10/19 15:23 03/10/19 14:43 03/10/19 14:43 03/10/19 14:43 Oxygen Delivery Method Room Air Weight: 272 lb 4.334 oz Body Mass Index (BMI) 35.9 Finger Stick Blood Glucose 140 Intake and Output for Last 24 Hours 03/08/19 03/09/19 03/10/19 23:59 23:59 23:59 Intake Total 873 / 873 3779 / 3779 1092 / 1092 Output Total 100 / 100 Balance 873 / 873 3779 / 3779 992 / 992 Laboratory Tests Past 24 Hrs 03/10/19 03/10/19 03/10/19 05:25 05:25 05:25 WBC 5.4 RBC 3.28 L Hgb 10.3 L Hct 30.5 L MCV 93.0 MCH 31.4 MCHC 33.8 RDW 13.2 RDW Differential 42.9 Plt Count 148 L MPV 12.1 H Immature Gran % (Auto) 0.200 Neut % (Auto) 54.8 Lymph % (Auto) 30.7 Jess[place] % (Auto) 8.9 Eos % (Auto) 5.0 Baso % (Auto) 0.4 Absolute Neuts (auto) 3.0 Absolute Lymphs (auto) 1.66 Total Counted Not Reportable PT 19.7 H INR 1.7 APTT 37.4 H Sodium 142 Potassium 5.0 Chloride 111 H Carbon Dioxide 23.0 Anion Gap 8 BUN 70 H Creatinine 2.11 H Estim Creat Clear Calc 35.01 Est GFR (MDRD) Af Amer 31 L Est GFR (MDRD) Non-Af 26 L BUN/Creatinine Ratio 33.2 H Glucose 95 Calcium 9.4 POC Glucose 03/10/19 03/10/19 03/10/19 12:35 09:40 06:21 POC Glucose 251 H 111 H 97 03/09/19 03/09/19 21:14 16:34 POC Glucose 175 H 238 H Disposition: Home Minutes spent on discharge:: 26 Patient Condition:: Stable Meaningful Use Info Meaningful Use Diagnoses (Choose all that apply): None applicable Code Visit OBSV E&M: 47378 Observation care discharge
--- NOTE | 2019-03-10 13:15 | DS.PCM_ITS ---
<Zuleyka Watt - Last Filed: 03/10/19 15:25> Discharge Date and Diagnosis Date of Admission: 03/08/19 Date of Discharge: 03/10/19 - Primary Discharge Diagnosis 1. Chest pain/abnormal stress test with history of CAD status post stents x3- ACS ruled out 2. Acute kidney injury on chronic kidney disease stage IV with hyperkalemia 3. History of ischemic cardiomyopathy 4. Type 2 diabetes mellitus 5. Paroxysmal atrial fibrillation 6. History of DVT 7. Hypothyroidism 8. Hypertension 9. Hyperlipidemia 10. GERD 11. Depression/anxiety 12. History of tobacco dependence 13. Marijuana use 14. Status post right [id number]-[id number]-tjgo amputation 15. Status post pacemaker placement 16. Obesity 17. Prior coccyx decubitus ulcer 18. History of left lower extremity vein grafting/bypass 19. Chronic normocytic anemia - Secondary Discharge Diagnosis Chronic Problems S/P AKA (above knee amputation) (Chronic) Morbid obesity (Chronic) Type II diabetes mellitus (Chronic) Ischemic cardiomyopathy (Chronic) History of atrial fibrillation (Chronic) History of DVT of lower extremity (Chronic) History of hypothyroidism (Chronic) coronary artery disease,prior stents. (Chronic) Tobacco abuse (Chronic) Hospital Course and Treatment Imaging Results: Diagnostic Data Chest X-Ray 03/08/19 13:16 IMPRESSION: 1. No airspace consolidation or pleural effusion. 2. Stable chronic vascular congestion. Cardiomegaly. Electronically Signed: Mikey Hernandes MD at 14:03 EDT , Service support , Dr. Isabel- Cardiology Operations: None Procedures: Stress test Summary of Care Provided: The patient is a 58 year old F admitted 03/08/2019 due to chest pain. 1. Chest pain/abnormal stress test with history of CAD status post stents x3- EKG in ER without evidence of ischemia. Troponin negative x3. Nuclear stress test completed today which showed cardiomyopathy, previous mid lateral infarct, mid anterior lateral ischemia, apical lateral infarct. Cardiology consulted. She will follow-up with Dr. Isabel in 2 to 4 weeks, anticipate outpatient cardiac catheterization. Patient informed she will need to follow-up with nephrology in the meantime for further evaluation regarding kidney function. Continue aspirin, statin, carvedilol, Coumadin. Patient started on Imdur 30 mg daily as well. 2. Acute kidney injury on chronic kidney disease stage IV with hyperkalemia- patient reports she is scheduled to establish with correctional case records supervisor in [place] in a few weeks. Repeat BMP improved. Hyperkalemia resolved. Follow-up with nephrology as scheduled. 3. History of ischemic cardiomyopathy-prior echocardiogram from 2011 showed an EF of 25 to 30%. No records of repeat echocardiogram, patient has followed with [facility] cardiology. 4. Type 2 diabetes mellitus-continue home insulin regimen. Hemoglobin A1c 8.2%. 5. Paroxysmal atrial fibrillation-continue Coumadin, carvedilol. 6. History of DVT-on anticoagulation with Coumadin. 7. Hypothyroidism-not on regimen? TSH within normal limits. 8. Hypertension-stable, continue home carvedilol, hydrochlorothiazide, lisinopril regimen. 9. Hyperlipidemia-continue statin. 10. GERD-continue PPI regimen. 11. Depression/anxiety-continue home bupropion, lorazepam regimen. 12. History of tobacco dependence-reports she has not smoked tobacco products in several years. Encouraged continued cessation. 13. Marijuana use 14. Status post right bxqkq-ful-vzgr amputation- PT/OT. 15. Status post pacemaker placement-patient reports this was secondary to fast heart rate and atrial fibrillation. 16. Obesity-encourage diet lifestyle modifications. 17. Prior coccyx decubitus ulcer-patient reports this is healed. Previously followed with wound center. 18. History of left lower extremity vein grafting/bypass-continue aspirin, statin. 19. Chronic normocytic anemia-at baseline. General: Alert, Oriented x3, Cooperative HEENT: Atraumatic, PERRLA, EOMI, Normocephalic Neck: Supple, No JVD, Negative Carotid Bruits Lungs: Clear to auscultation, Diminished Cardiovascular: - - Ventricular paced, no murmur Abdomen: Bowel Sounds Present, Soft, Non Tender, Non-Distended, Obese Extremities: No clubbing, No cyanosis, No edema, Capillary Refill Less than 3 Seconds, Right AKA Skin: No rashes, No breakdown, - - Prior coccyx pressure ulcer Musculoskeletal: No Tenderness to Palpation of Joints or Extremities Neurological: Cranial nerves II-XII grossly intact, Neuro grossly intact Psych/Mental Status: Normal Affect, Appropriate Patient seen and examined prior to discharge. Physical assessment as noted above. Patient is stable for discharge with follow up recommendations as noted above. This patient was seen by CATHRYN Diaz under the supervision of Dr. Ornelas. - Physical Exam Vital Signs Temp Pulse Resp BP Pulse Ox 97.8 F 76 14 118/73 96 03/10/19 09:34 03/10/19 09:35 03/10/19 09:34 03/10/19 09:35 03/10/19 09:34 Oxygen Delivery Method Room Air Weight: 272 lb 4.334 oz Body Mass Index (BMI) 35.9 Finger Stick Blood Glucose 140 Intake and Output for Last 24 Hours 03/08/19 03/09/19 03/10/19 23:59 23:59 23:59 Intake Total 873 / 873 3779 / 3779 1092 / 1092 Output Total 100 / 100 Balance 873 / 873 3779 / 3779 992 / 992 Laboratory Tests Past 24 Hrs 03/09/19 03/10/19 03/10/19 12:15 05:25 05:25 WBC RBC Hgb Hct MCV MCH MCHC RDW RDW Differential Plt Count MPV Immature Gran % (Auto) Neut % (Auto) Lymph % (Auto) Pierce % (Auto) Eos % (Auto) Baso % (Auto) Absolute Neuts (auto) Absolute Lymphs (auto) Total Counted PT 19.7 H INR 1.7 APTT 37.4 H Sodium 142 Potassium 5.0 Chloride 111 H Carbon Dioxide 23.0 Anion Gap 8 BUN 70 H Creatinine 2.11 H Estim Creat Clear Calc 35.01 Est GFR (MDRD) Af Amer 31 L Est GFR (MDRD) Non-Af 26 L BUN/Creatinine Ratio 33.2 H Glucose 95 Hemoglobin A1c 8.2 H Calcium 9.4 03/10/19 05:25 WBC 5.4 RBC 3.28 L Hgb 10.3 L Hct 30.5 L MCV 93.0 MCH 31.4 MCHC 33.8 RDW 13.2 RDW Differential 42.9 Plt Count 148 L MPV 12.1 H Immature Gran % (Auto) 0.200 Neut % (Auto) 54.8 Lymph % (Auto) 30.7 Pierce % (Auto) 8.9 Eos % (Auto) 5.0 Baso % (Auto) 0.4 Absolute Neuts (auto) 3.0 Absolute Lymphs (auto) 1.66 Total Counted Not Reportable PT INR APTT Sodium Potassium Chloride Carbon Dioxide Anion Gap BUN Creatinine Estim Creat Clear Calc Est GFR (MDRD) Af Amer Est GFR (MDRD) Non-Af BUN/Creatinine Ratio Glucose Hemoglobin A1c Calcium POC Glucose 03/10/19 03/10/19 03/10/19 12:35 09:40 06:21 POC Glucose 251 H 111 H 97 03/09/19 03/09/19 21:14 16:34 POC Glucose 175 H 238 H Discharge Diet: Low fat/ Low Cholesterol, Carb Control Diet Discharge Activity: Return to Normal Activity Call your doctor if you observe: Shortness of breath, Dizziness, Fainting spells, Chest pain Home Medications: Medications to take at Discharge Lisinopril [Zestril] 20 mg PO DAILY 07/02/13 Lorazepam 0.5 mg PO TID PRN PRN 07/02/13 Albuterol IH (ProAir) [Proair Hfa] 2 puff INHALATION Q4H PRN PRN 07/19/13 Nitroglycerin [Nitrostat] 0.4 mg SL PRN PRN 07/19/13 Warfarin [Coumadin] 5 mg PO TUTHSA 07/19/13 Atorvastatin Calcium [Lipitor] 40 mg PO QHS 06/02/15 Digoxin [Lanoxin] 125 mcg PO DAILY 06/02/15 Esomeprazole Mag Trihydrate [Nexium] 40 mg PO DAILY 06/02/15 Gabapentin [Neurontin] 600 mg PO TID 06/02/15 Hydrochlorothiazide 25 mg PO DAILY 06/02/15 Cholecalciferol (Vitamin D3) [Vitamin D3] 50,000 units PO MO 03/08/16 Insulin U-500 [Humulin R U-500 (BKC)] 70 unit SC DINNER 03/08/16 Insulin U-500 [Humulin R U-500 (BKC)] 80 units SC BREAKFAST 03/08/16 Warfarin [Coumadin] 7.5 mg PO SUMOWEFR 03/08/16 buPROPion SR [Wellbutrin SR (150mg tablets)] 450 mg PO DAILY 03/08/16 Carvedilol [Coreg (Beta Yamilka)] 25 mg PO BID 07/07/17 Aspirin [Aspirin, Baby] 81 mg PO DAILY@0800 08/15/17 Furosemide 40 mg PO DAILY 03/06/19 traMADol [Ultram] 50 mg PO 4X/DAY 03/08/19 Isosorbide Mononitrate [Imdur] 30 mg PO DAILY #30 tablet 03/10/19 Following Prescrptions Were Given to Patient: Isosorbide Mononitrate [Imdur] 30 mg PO DAILY #30 tablet Primary Care Physician: Leslie Bird MD [Primary Care Provider] - Please follow up with your Primary Care Physician in: 1 Week Please Follow Up With: Toney Isabel MD When: 2-4 Weeks Please Follow Up With: Primary Parachute Packer When: As previously scheduled or within 1 week Disposition: Home Minutes spent on discharge:: 35 Patient Condition:: Stable Medical Necessity - Tobacco Use Smoking Status: Former smoker Meaningful Use Info Meaningful Use Diagnoses (Choose all that apply): None applicable <Honorio Ornelas E - Last Filed: 03/10/19 15:42> Discharge Date and Diagnosis - Secondary Discharge Diagnosis Chronic Problems S/P AKA (above knee amputation) (Chronic) Morbid obesity (Chronic) Type II diabetes mellitus (Chronic) Ischemic cardiomyopathy (Chronic) History of atrial fibrillation (Chronic) History of DVT of lower extremity (Chronic) History of hypothyroidism (Chronic) coronary artery disease,prior stents. (Chronic) Tobacco abuse (Chronic) Hospital Course and Treatment Imaging Results: 03/10/19 10:00 Nuclear Stress Test - Chemical [NM] Routine Summary of Care Provided: Hospitalist note: Discharge summary reviewed as above and I concur with the above discharge plan. Patient was admitted for chest pain for evaluation. EKG revealed no acute ischemic changes. Troponin was negative x3. She underwent nuclear stress test that revealed ejection fraction of 32%, cardiomyopathy, previous mild lateral infarct, mid anterolateral ischemia, apical lateral infarct. Cardiology consulted and evaluated the patient and recommended follow-up with cardiology as outpatient in 2 to 4 weeks on plan is to do cardiac catheterization as outpatient. Patient was found to have acute kidney injury double stage IV chronic kidney disease and and kidney function improved with IV fluid treatment. Her potassium was slightly elevated which was normalized. Patient discharged home in a stable medical condition, discharged on her previous home medications without any changes, continued on Coumadin, recommended follow-up with PCP in 1 week and follow-up with cardiology according to Dr. Isabel, recommended to up with nephrology in 1 week as well. - Physical Exam General: Alert, Oriented x3, Cooperative, No apparent distress. HEENT: Atraumatic, PERRLA, EOMI. Neck: Supple, No JVD, Negative Carotid Bruits, Trachea Midline, Thyroid Normal. Lungs: Diminished breath sounds bilateral, otherwise clear, No rhonchi, No wheeze, No rales. Cardiovascular: Regular rate, Regular Rhythm, Normal S1, Normal S2, PMI Normal. Abdomen: Bowel Sounds Present, Soft, Non Tender, Non-Distended, No Hepato- splenomegaly. Extremities: No clubbing, No cyanosis, No edema Skin: No rashes, No breakdown Neurological: Neuro grossly intact Vital Signs are stable. This note was generated with [employer] dictation software. It may contain incorrect words, spelling, and punctuation that were not noted in checking the note before signing. - Physical Exam Vital Signs Temp Pulse Resp BP Pulse Ox 97.8 F 75 15 137/70 H 98 03/10/19 14:43 03/10/19 15:23 03/10/19 14:43 03/10/19 14:43 03/10/19 14:43 Oxygen Delivery Method Room Air Weight: 272 lb 4.334 oz Body Mass Index (BMI) 35.9 Finger Stick Blood Glucose 140 Intake and Output for Last 24 Hours 03/08/19 03/09/19 03/10/19 23:59 23:59 23:59 Intake Total 873 / 873 3779 / 3779 1092 / 1092 Output Total 100 / 100 Balance 873 / 873 3779 / 3779 992 / 992 Laboratory Tests Past 24 Hrs 03/10/19 03/10/19 03/10/19 05:25 05:25 05:25 WBC 5.4 RBC 3.28 L Hgb 10.3 L Hct 30.5 L MCV 93.0 MCH 31.4 MCHC 33.8 RDW 13.2 RDW Differential 42.9 Plt Count 148 L MPV 12.1 H Immature Gran % (Auto) 0.200 Neut % (Auto) 54.8 Lymph % (Auto) 30.7 Pierce % (Auto) 8.9 Eos % (Auto) 5.0 Baso % (Auto) 0.4 Absolute Neuts (auto) 3.0 Absolute Lymphs (auto) 1.66 Total Counted Not Reportable PT 19.7 H INR 1.7 APTT 37.4 H Sodium 142 Potassium 5.0 Chloride 111 H Carbon Dioxide 23.0 Anion Gap 8 BUN 70 H Creatinine 2.11 H Estim Creat Clear Calc 35.01 Est GFR (MDRD) Af Amer 31 L Est GFR (MDRD) Non-Af 26 L BUN/Creatinine Ratio 33.2 H Glucose 95 Calcium 9.4 POC Glucose 03/10/19 03/10/19 03/10/19 12:35 09:40 06:21 POC Glucose 251 H 111 H 97 03/09/19 03/09/19 21:14 16:34 POC Glucose 175 H 238 H Disposition: Home Minutes spent on discharge:: 26 Patient Condition:: Stable Meaningful Use Info Meaningful Use Diagnoses (Choose all that apply): None applicable Code Visit OBSV E&M: 81913 Observation care discharge
--- NOTE | 2019-03-10 13:40 | CASEMGMT ---
According to the [facility] website, the following are in-network tertiary facilities: [facility], [place], [facility], [facility], [facility], [facility], and . Arnold TEJEDA CM
--- NOTE | 2019-03-10 13:45 | STRESSREP_ITS ---
Stress Test Report Pharmacologic myocardial perfusion stress test. 58-year-old lady with a history of coronary artery disease cardiomyopathy who presents with chest pain. Medications aspirin hydrochlorothiazide Humalog lisinopril Coumadin. Stress protocol: Resting EKG demonstrates atrial fibrillation with a rate of 80 bpm ventricular paced rhythm is noted. 0.4 mg of regadenoson was infused per usual protocol followed by rapid intravenous and flush injection continuous EKG monitoring was performed. The maximum heart rate attained was 106 bpm which was 65% of maximum predicted heart rate the maximum workload was 1 metabolic equivalent. At rest pacemaker activity only was noted nonspecific ST-T wave changes were noted left bundle branch block pattern was noted. Resting blood pressure was 164/98 mmHg final blood pressure was 160/92 mmHg. Myocardial perfusion protocol. 14.8 mCi of technetium 99m sestamibi was injected at rest. 0.4 mg of rega denoson was infused per usual protocol peak infusion 44.9 mCi of technetium 99m sestamibi was injected stress images were obtained stress and rest images were reconstructed and compared in the short axis vertical long horizontal long axis. Gated images were also obtained Perfusion SPECT analysis: Review of the stress images demonstrate a normal cardiac silhouette size. The septum anterior wall and inferior wall appeared well perfused. There is a medium-sized defect noted in the anterolateral wall on the stress images with improvement in the resting images suggesting sivakumar-infarct ischemia noted in the anterolateral and mid lateral wall. The rest of the arvizu appear to be well perfused. The distal apical lateral wall also appears to have a perfusion defect suggestive of a previous infarct. Gated SPECT analysis: The gated ejection fraction demonstrates reduced ejection fraction estimated to be 32%. Conclusion: Cardiomyopathy. Previous mid lateral infarct. Mid anterolateral ischemia. Apical lateral infarct.
[2019-03-10] MEDS: buPROPion (SR) 150 MG Tablet.SA 450 MG PO (14:51)
[2019-03-10] MEDS: Carvedilol 25 MG Tablet PO (14:52)
[2019-03-10] MEDS: hydroCHLOROthiazide 25 MG Tablet PO (14:52)
--- NOTE | 2019-03-10 15:03 | PCM.PROGNOTE ---
<Zuleyka Watt - Last Filed: 03/10/19 15:10> Subjective: Patient seen and examined. Continues to have mild continuous chest pressure. Denies other associated symptoms. - Physical Exam General: Alert, Oriented x3, Cooperative HEENT: Atraumatic, PERRLA, EOMI, Normocephalic Neck: Supple, No JVD, Negative Carotid Bruits Lungs: Clear to auscultation, Diminished Cardiovascular: No murmurs, - - Ventricular paced Abdomen: Bowel Sounds Present, Soft, Non Tender, Non-Distended, Obese Extremities: No clubbing, No cyanosis, No edema, Capillary Refill Less than 3 Seconds Skin: No rashes, No breakdown Musculoskeletal: No Tenderness to Palpation of Joints or Extremities, - - Right AKA Neurological: Cranial nerves II-XII grossly intact, Neuro grossly intact Psych/Mental Status: Normal Affect, Appropriate Vital Signs Temp Pulse Resp BP Pulse Ox 97.8 F 77 15 137/70 H 98 03/10/19 14:43 03/10/19 14:43 03/10/19 14:43 03/10/19 14:43 03/10/19 14:43 Oxygen Delivery Method Room Air Weight: 272 lb 4.334 oz Body Mass Index (BMI) 35.9 Finger Stick Blood Glucose 140 Intake and Output for Last 24 Hours 03/08/19 03/09/19 03/10/19 23:59 23:59 23:59 Intake Total 873 / 873 3779 / 3779 1092 / 1092 Output Total 100 / 100 Balance 873 / 873 3779 / 3779 992 / 992 Laboratory Tests Past 24 Hrs 03/10/19 03/10/19 03/10/19 05:25 05:25 05:25 WBC 5.4 RBC 3.28 L Hgb 10.3 L Hct 30.5 L MCV 93.0 MCH 31.4 MCHC 33.8 RDW 13.2 RDW Differential 42.9 Plt Count 148 L MPV 12.1 H Immature Gran % (Auto) 0.200 Neut % (Auto) 54.8 Lymph % (Auto) 30.7 Dauphin % (Auto) 8.9 Eos % (Auto) 5.0 Baso % (Auto) 0.4 Absolute Neuts (auto) 3.0 Absolute Lymphs (auto) 1.66 Total Counted Not Reportable PT 19.7 H INR 1.7 APTT 37.4 H Sodium 142 Potassium 5.0 Chloride 111 H Carbon Dioxide 23.0 Anion Gap 8 BUN 70 H Creatinine 2.11 H Estim Creat Clear Calc 35.01 Est GFR (MDRD) Af Amer 31 L Est GFR (MDRD) Non-Af 26 L BUN/Creatinine Ratio 33.2 H Glucose 95 Calcium 9.4 POC Glucose 03/10/19 03/10/19 03/10/19 12:35 09:40 06:21 POC Glucose 251 H 111 H 97 03/09/19 03/09/19 21:14 16:34 POC Glucose 175 H 238 H Medical Necessity - Tobacco Use Smoking Status: Former smoker Assessment/Plan 1. Chest pain with history of CAD status post stents x3-EKG in ER without evidence of ischemia. Troponin negative x3. Nuclear stress test completed today which showed cardiomyopathy, previous mid lateral infarct, mid anterior lateral ischemia, apical lateral infarct. Cardiology consulted. 2. Acute kidney injury on chronic kidney disease stage IV with hyperkalemia-patient reports she is scheduled to establish with assistant secretary in [place] in a few weeks. Repeat BMP improved. Gentle IV fluids. Trend BMP. Hyperkalemia resolved. 3. History of ischemic cardiomyopathy-prior echocardiogram from 2011 showed an EF of 25 to 30%. No records of repeat echocardiogram, patient has followed with [facility] cardiology. 4. Type 2 diabetes mellitus-continue home insulin regimen with sliding scale insulin. Hemoglobin A1c 8.2%. 5. Paroxysmal atrial fibrillation-continue Coumadin, carvedilol. 6. History of DVT-on anticoagulation with Coumadin. 7. Hypothyroidism-not on regimen? TSH within normal limits. 8. Hypertension-stable, continue home carvedilol, hydrochlorothiazide, lisinopril regimen. 9. Hyperlipidemia-continue statin. 10. GERD-continue PPI regimen. 11. Depression/anxiety-continue home bupropion, lorazepam regimen. 12. History of tobacco dependence-reports she has not smoked tobacco products in several years. Encouraged continued cessation. 13. Marijuana use 14. Status post right ywllz-mly-wbbr amputation- PT/OT. 15. Status post pacemaker placement-patient reports this was secondary to fast heart rate and atrial fibrillation. 16. Obesity-encourage diet lifestyle modifications. 17. Prior coccyx decubitus ulcer-patient reports this is healed. Previously followed with wound center. Every 2 hour turns. 18. History of left lower extremity vein grafting/bypass-continue aspirin, statin. 19. Chronic normocytic anemia-at baseline. DVT prophylaxis-Coumadin This patient was seen by CATHRYN Diaz under the supervision of Dr. Ornelas. <CeciHonorio E - Last Filed: 03/10/19 15:38> - Physical Exam Vital Signs Temp Pulse Resp BP Pulse Ox 97.8 F 75 15 137/70 H 98 03/10/19 14:43 03/10/19 15:23 03/10/19 14:43 03/10/19 14:43 03/10/19 14:43 Oxygen Delivery Method Room Air Weight: 272 lb 4.334 oz Body Mass Index (BMI) 35.9 Finger Stick Blood Glucose 140 Intake and Output for Last 24 Hours 03/08/19 03/09/19 03/10/19 23:59 23:59 23:59 Intake Total 873 / 873 3779 / 3779 1092 / 1092 Output Total 100 / 100 Balance 873 / 873 3779 / 3779 992 / 992 Laboratory Tests Past 24 Hrs 03/10/19 03/10/19 03/10/19 05:25 05:25 05:25 WBC 5.4 RBC 3.28 L Hgb 10.3 L Hct 30.5 L MCV 93.0 MCH 31.4 MCHC 33.8 RDW 13.2 RDW Differential 42.9 Plt Count 148 L MPV 12.1 H Immature Gran % (Auto) 0.200 Neut % (Auto) 54.8 Lymph % (Auto) 30.7 Dauphin % (Auto) 8.9 Eos % (Auto) 5.0 Baso % (Auto) 0.4 Absolute Neuts (auto) 3.0 Absolute Lymphs (auto) 1.66 Total Counted Not Reportable PT 19.7 H INR 1.7 APTT 37.4 H Sodium 142 Potassium 5.0 Chloride 111 H Carbon Dioxide 23.0 Anion Gap 8 BUN 70 H Creatinine 2.11 H Estim Creat Clear Calc 35.01 Est GFR (MDRD) Af Amer 31 L Est GFR (MDRD) Non-Af 26 L BUN/Creatinine Ratio 33.2 H Glucose 95 Calcium 9.4 POC Glucose 03/10/19 03/10/19 03/10/19 12:35 09:40 06:21 POC Glucose 251 H 111 H 97 03/09/19 03/09/19 21:14 16:34 POC Glucose 175 H 238 H Assessment/Plan Hospitalist note: I am seeing this patient in conjunction with Zuleyka Watt. I independently seen and examined the patient. Progress note above, laboratory data and imaging studies reviewed and I agree with above treatment plan. Patient seen and examined. When I saw the patient, she complained of nausea but denies any more chest pain. Her vital signs were stable. - Physical Exam General: Alert, Oriented x3, Cooperative, No apparent distress. HEENT: Atraumatic, PERRLA, EOMI. Neck: Supple, No JVD, Negative Carotid Bruits, Trachea Midline, Thyroid Normal. Lungs: Diminished breath sounds bilateral, otherwise clear, No rhonchi, No wheeze, No rales. Cardiovascular: Regular rate, Regular Rhythm, Normal S1, Normal S2, PMI Normal. Abdomen: Bowel Sounds Present, Soft, Non Tender, Non-Distended, No Hepato-splenomegaly. Extremities: No clubbing, No cyanosis, No edema Skin: No rashes, No breakdown Neurological: Neuro grossly intact Vital Signs are stable. Assessment and plan: #1 chest pain: EKG without acute ischemic changes. Troponin is negative x3. She underwent nuclear stress test today that was abnormal as mentioned above. Cardiology consulted and recommended medical treatment for now and follow-up with cardiology in 2 to 4 weeks and patient will probably need outpatient cardiac catheterization. #2 acute kidney injury top of stage IV chronic kidney disease: Kidney function is improving, potassium is back to normal. Recommend follow-up with nephrology as outpatient. #3 other chronic medical problems: Stable, continue current medications as above. This note was generated with [employer] software. It may contain incorrect words, spelling, and punctuation that were not noted in checking the note before signing.
--- NOTE | 2019-03-10 15:10 | PN_ITS ---
<Zuleyka Watt - Last Filed: 03/10/19 15:10> Subjective: Patient seen and examined. Continues to have mild continuous chest pressure. Denies other associated symptoms. - Physical Exam General: Alert, Oriented x3, Cooperative HEENT: Atraumatic, PERRLA, EOMI, Normocephalic Neck: Supple, No JVD, Negative Carotid Bruits Lungs: Clear to auscultation, Diminished Cardiovascular: No murmurs, - - Ventricular paced Abdomen: Bowel Sounds Present, Soft, Non Tender, Non-Distended, Obese Extremities: No clubbing, No cyanosis, No edema, Capillary Refill Less than 3 Seconds Skin: No rashes, No breakdown Musculoskeletal: No Tenderness to Palpation of Joints or Extremities, - - Right AKA Neurological: Cranial nerves II-XII grossly intact, Neuro grossly intact Psych/Mental Status: Normal Affect, Appropriate Vital Signs Temp Pulse Resp BP Pulse Ox 97.8 F 77 15 137/70 H 98 03/10/19 14:43 03/10/19 14:43 03/10/19 14:43 03/10/19 14:43 03/10/19 14:43 Oxygen Delivery Method Room Air Weight: 272 lb 4.334 oz Body Mass Index (BMI) 35.9 Finger Stick Blood Glucose 140 Intake and Output for Last 24 Hours 03/08/19 03/09/19 03/10/19 23:59 23:59 23:59 Intake Total 873 / 873 3779 / 3779 1092 / 1092 Output Total 100 / 100 Balance 873 / 873 3779 / 3779 992 / 992 Laboratory Tests Past 24 Hrs 03/10/19 03/10/19 03/10/19 05:25 05:25 05:25 WBC 5.4 RBC 3.28 L Hgb 10.3 L Hct 30.5 L MCV 93.0 MCH 31.4 MCHC 33.8 RDW 13.2 RDW Differential 42.9 Plt Count 148 L MPV 12.1 H Immature Gran % (Auto) 0.200 Neut % (Auto) 54.8 Lymph % (Auto) 30.7 [place] % (Auto) 8.9 Eos % (Auto) 5.0 Baso % (Auto) 0.4 Absolute Neuts (auto) 3.0 Absolute Lymphs (auto) 1.66 Total Counted Not Reportable PT 19.7 H INR 1.7 APTT 37.4 H Sodium 142 Potassium 5.0 Chloride 111 H Carbon Dioxide 23.0 Anion Gap 8 BUN 70 H Creatinine 2.11 H Estim Creat Clear Calc 35.01 Est GFR (MDRD) Af Amer 31 L Est GFR (MDRD) Non-Af 26 L BUN/Creatinine Ratio 33.2 H Glucose 95 Calcium 9.4 POC Glucose 03/10/19 03/10/19 03/10/19 12:35 09:40 06:21 POC Glucose 251 H 111 H 97 03/09/19 03/09/19 21:14 16:34 POC Glucose 175 H 238 H Medical Necessity - Tobacco Use Smoking Status: Former smoker Assessment/Plan 1. Chest pain with history of CAD status post stents x3-EKG in ER without ev idence of ischemia. Troponin negative x3. Nuclear stress test completed today which showed cardiomyopathy, previous mid lateral infarct, mid anterior lateral ischemia, apical lateral infarct. Cardiology consulted. 2. 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 Repeat BMP improved. Gentle IV fluids. Trend BMP. Hyperkalemia resolved. 3. History of ischemic cardiomyopathy-prior echocardiogram from 2011 showed an EF of 25 to 30%. No records of repeat echocardiogram, patient has followed with [facility] cardiology. 4. Type 2 diabetes mellitus-continue home insulin regimen with sliding scale insulin. Hemoglobin A1c 8.2%. 5. Paroxysmal atrial fibrillation-continue Coumadin, carvedilol. 6. History of DVT-on anticoagulation with Coumadin. 7. Hypothyroidism-not on regimen? TSH within normal limits. 8. Hypertension-stable, continue home carvedilol, hydrochlorothiazide, lisinopril regimen. 9. Hyperlipidemia-continue statin. 10. GERD-continue PPI regimen. 11. Depression/anxiety-continue home bupropion, lorazepam regimen. 12. History of tobacco dependence-reports she has not smoked tobacco products in several years. Encouraged continued cessation. 13. Marijuana use 14. Status post right hxrmg-voq-lnls amputation- PT/OT. 15. Status post pacemaker placement-patient reports this was secondary to fast heart rate and atrial fibrillation. 16. Obesity-encourage diet lifestyle modifications. 17. Prior coccyx decubitus ulcer-patient reports this is healed. Previously followed with wound center. Every 2 hour turns. 18. History of left lower extremity vein grafting/bypass-continue aspirin, statin. 19. Chronic normocytic anemia-at baseline. DVT prophylaxis-Coumadin This patient was seen by CATHRYN Diaz under the supervision of Dr. Ornelas. <CeciHonorio Metzger - Last Filed: 03/10/19 15:38> - Physical Exam Vital Signs Temp Pulse Resp BP Pulse Ox 97.8 F 75 15 137/70 H 98 03/10/19 14:43 03/10/19 15:23 03/10/19 14:43 03/10/19 14:43 03/10/19 14:43 Oxygen Delivery Method Room Air Weight: 272 lb 4.334 oz Body Mass Index (BMI) 35.9 Finger Stick Blood Glucose 140 Intake and Output for Last 24 Hours 03/08/19 03/09/19 03/10/19 23:59 23:59 23:59 Intake Total 873 / 873 3779 / 3779 1092 / 1092 Output Total 100 / 100 Balance 873 / 873 3779 / 3779 992 / 992 Laboratory Tests Past 24 Hrs 03/10/19 03/10/19 03/10/19 05:25 05:25 05:25 WBC 5.4 RBC 3.28 L Hgb 10.3 L Hct 30.5 L MCV 93.0 MCH 31.4 MCHC 33.8 RDW 13.2 RDW Differential 42.9 Plt Count 148 L MPV 12.1 H Immature Gran % (Auto) 0.200 Neut % (Auto) 54.8 Lymph % (Auto) 30.7 [place] % (Auto) 8.9 Eos % (Auto) 5.0 Baso % (Auto) 0.4 Absolute Neuts (auto) 3.0 Absolute Lymphs (auto) 1.66 Total Counted Not Reportable PT 19.7 H INR 1.7 APTT 37.4 H Sodium 142 Potassium 5.0 Chloride 111 H Carbon Dioxide 23.0 Anion Gap 8 BUN 70 H Creatinine 2.11 H Estim Creat Clear Calc 35.01 Est GFR (MDRD) Af Amer 31 L Est GFR (MDRD) Non-Af 26 L BUN/Creatinine Ratio 33.2 H Glucose 95 Calcium 9.4 POC Glucose 03/10/19 03/10/19 03/10/19 12:35 09:40 06:21 POC Glucose 251 H 111 H 97 03/09/19 03/09/19 21:14 16:34 POC Glucose 175 H 238 H Assessment/Plan Hospitalist note: I am seeing this patient in conjunction with Zuleyka Watt. I independently seen and examined the patient. Progress note above, laboratory data and imaging studies reviewed and I agree with above treatment plan. Patient seen and examined. When I saw the patient, she complained of nausea but denies any more chest pain. Her vital signs were stable. - Physical Exam General: Alert, Oriented x3, Cooperative, No apparent distress. HEENT: Atraumatic, PERRLA, EOMI. Neck: Supple, No JVD, Negative Carotid Bruits, Trachea Midline, Thyroid Normal. Lungs: Diminished breath sounds bilateral, otherwise clear, No rhonchi, No wheeze, No rales. Cardiovascular: Regular rate, Regular Rhythm, Normal S1, Normal S2, PMI Normal. Abdomen: Bowel Sounds Present, Soft, Non Tender, Non-Distended, No Hepato- splenomegaly. Extremities: No clubbing, No cyanosis, No edema Skin: No rashes, No breakdown Neurological: Neuro grossly intact Vital Signs are stable. Assessment and plan: #1 chest pain: EKG without acute ischemic changes. Troponin is negative x3. She underwent nuclear stress test today that was abnormal as mentioned above. Cardiology consulted and recommended medical treatment for now and follow-up with cardiology in 2 to 4 weeks and patient will probably need outpatient cardiac catheterization. #2 acute kidney injury top of stage IV chronic kidney disease: Kidney function is improving, potassium is back to normal. Recommend follow-up with nephrology as outpatient. #3 other chronic medical problems: Stable, continue current medications as above. This note was generated with Iptiviaation software. It may contain incorrect words, spelling, and punctuation that were not noted in checking the note before signing.
--- NOTE | 2019-03-10 15:53 | PCM.CONS.C ---
Reason for Consult Date of Consultation: 03/10/19 Reason for Consultation: Abnormal stress test and chest pain History of Present Illness: The patient is a 58 year old F with a significant cardiac history with 3 previously placed stents, cardiomyopathy, atrial fibrillation, status post ICD implantation who presented to the hospital because of right-sided chest discomfort which she describes as constant. She says that this is quite different from what she had in the past before she had her stents. She has had no dizziness or diaphoresis no near syncope or syncope. She had an EKG and blood work done and was scheduled for a stress test. The stress test demonstrated evidence of lateral ischemia with her previous infarct. She also has significant renal dysfunction and indeed presented to the emergency room with worsening renal function a few weeks ago. She says that she has not taken any nitroglycerin for her chest discomfort. [] Past Medical History Allergies/Adverse Reactions: Allergies codeine Allergy (Verified 03/06/19 18:31) Rash latex Allergy (Verified 03/06/19 18:31) Itching Penicillins Allergy (Verified 03/11/18 20:20) Swelling dexamethasone [From Maxidex] Adverse Reaction (Verified 03/06/19 18:31) Unknown iodine Adverse Reaction (Verified 03/06/19 18:31) Itching morphine Adverse Reaction (Verified 03/06/19 18:31) Other Home Medications: Ambulatory Orders Medication Instructions Recorded Lisinopril [Zestril] 20 mg PO DAILY 07/02/13 Lorazepam 0.5 mg PO TID PRN PRN 07/02/13 Albuterol IH (ProAir) [Proair Hfa] 2 puff INHALATION Q4H PRN PRN 07/19/13 Nitroglycerin [Nitrostat] 0.4 mg SL PRN PRN 07/19/13 Warfarin [Coumadin] 5 mg PO TUTHSA 07/19/13 Atorvastatin Calcium [Lipitor] 40 mg PO QHS 06/02/15 Digoxin [Lanoxin] 125 mcg PO DAILY 06/02/15 Esomeprazole Mag Trihydrate 40 mg PO DAILY 06/02/15 [Nexium] Gabapentin [Neurontin] 600 mg PO TID 06/02/15 Hydrochlorothiazide 25 mg PO DAILY 06/02/15 Cholecalciferol (Vitamin D3) 50,000 units PO MO 03/08/16 [Vitamin D3] Insulin U-500 [Humulin R U-500 70 unit SC DINNER 03/08/16 ([facility])] Insulin U-500 [Humulin R U-500 80 units SC BREAKFAST 03/08/16 ([facility])] Warfarin [Coumadin] 7.5 mg PO SUMOWEFR 03/08/16 buPROPion SR [Wellbutrin SR (150mg 450 mg PO DAILY 03/08/16 tablets)] Carvedilol [Coreg (Beta Yamilka)] 25 mg PO BID 07/07/17 Aspirin [Aspirin, Baby] 81 mg PO DAILY@0800 08/15/17 Furosemide 40 mg PO DAILY 03/06/19 traMADol [Ultram] 50 mg PO 4X/DAY 03/08/19 Isosorbide Mononitrate [Imdur] 30 mg PO DAILY #30 tablet 03/10/19 Past Medical History (Chronic Problems): Chronic Problems S/P AKA (above knee amputation) (Chronic) Morbid obesity (Chronic) Type II diabetes mellitus (Chronic) Ischemic cardiomyopathy (Chronic) History of atrial fibrillation (Chronic) History of DVT of lower extremity (Chronic) History of hypothyroidism (Chronic) coronary artery disease,prior stents. (Chronic) Tobacco abuse (Chronic) Surgical History: adenoidectomy, cholecystectomy, hysterectomy, tonsillectomy, - - Right eelgm-tgm-zoau amputation, panniculectomy, pacemaker placement, left leg vein grafting/bypass. 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 Lives: Roommate Smoking Status: Former smoker Alcohol: None Drugs: None Review of Systems - Review of Systems General: Denies: Fever, Night Sweats, Fatigue HEENT: Denies: Vision Change Cardiovascular: Reports: Chest Discomfort. Denies: Shortness of Breath, Orthopnea, PND, Peripheral Edema, Palpitations, Lightheadedness, Dizziness, Near Syncope, Syncope Respiratory: Denies: Cough, Sputum Production, Hemoptysis Gastrointestinal: Denies: Hematemesis, Hematochezia, Melena Genitourinary: Denies: Dysuria, Hematuria Skin: Denies: Rash Neurological: Denies: Dizziness Psychiatric: Denies: Anxiety Endocrine: Denies: Unexplained Weight Loss Subjectve: Middle-aged lady in no distress Objective: Vital Signs Temp Pulse Resp BP Pulse Ox 97.8 F 75 15 137/70 H 98 03/10/19 14:43 03/10/19 15:23 03/10/19 14:43 03/10/19 14:43 03/10/19 14:43 Oxygen Delivery Method Room Air Weight: 272 lb 4.334 oz Body Mass Index (BMI) 35.9 Finger Stick Blood Glucose 140 Intake and Output for Last 24 Hours 03/08/19 03/09/19 03/10/19 23:59 23:59 23:59 Intake Total 873 / 873 3779 / 3779 1092 / 1092 Output Total 100 / 100 Balance 873 / 873 3779 / 3779 992 / 992 General: Awake, Alert, Oriented x 3 HEENT: PERRL, EOMI, Sclera Non Icteric Neck: Supple, Good ROM, No Lymph Node Enlargement Lungs: Clear to auscultation Cardiovascular: Regular Rhythm, Normal S1, Normal S2, No Murmurs, No Rubs, No Gallops Vascular: No Carotid Bruits, Normal Femoral Pulses, Normal Radial Pulses, Normal Dorsalis Pedal Pulse, Normal Posterior Tibial Pulses Abdomen: Bowel Sounds Present, Soft, Non Tender, No HSM, No Organomegaly Extremities: No Cyanosis, No Clubbing, No edema, - - Right leg amputee Musculoskeletal: No Erythema Skin: No Rashes Lymphatic: No Lymph Node Enlargement Neurological: No Focal Motor or Sensory Deficit Psych/Mental Status: Appropriate 03/10/19 05:25: PT 19.7 H, INR 1.7, APTT 37.4 H 03/10/19 05:25: Sodium 142, Potassium 5.0, Chloride 111 H, Carbon Dioxide 23.0, Anion Gap 8, BUN 70 H, Creatinine 2.11 H, Est GFR (MDRD) Af Amer 31 L, Est GFR (MDRD) Non-Af 26 L, BUN/Creatinine Ratio 33.2 H, Glucose 95, Calcium 9.4 03/10/19 05:25: WBC 5.4, RBC 3.28 L, Hgb 10.3 L, Hct 30.5 L, MCV 93.0, MCH 31.4, MCHC 33.8, RDW 13.2, RDW Differential 42.9, Plt Count 148 L, MPV 12.1 H, Immature Gran % (Auto) 0.200, Neut % (Auto) 54.8, Lymph % (Auto) 30.7, [place] % (Auto) 8.9, Eos % (Auto) 5.0, Baso % (Auto) 0.4, Absolute Neuts (auto) 3.0, Total Counted Not Reportable Rhythm: EKG: Atrial fibrillation with a paced ventricular rhythm at 70 bpm ECHO: Stress Test: Ischemic cardiomyopathy with estimated ejection fraction of 32%. Lateral infarct with mild lateral ischemia Assessment/Plan 1. Coronary artery disease with abnormal stress test Presents with atypical chest discomfort and has a stress test which is abnormal with lateral infarct and mild lateral ischemia. At this time with her renal function which is rather precarious I am very hesitant to proceed with a cardiac catheterization unless maximum medical therapy has been tried. My recommendation at this time would be to start her on isosorbide and see how she responds to the above. If she continues to have chest discomfort then we may need to proceed with a cardiac catheterization. I discussed the above with her at this particular time she is not keen on proceeding with a cardiac catheterization in 1 to be discharged and followed up as an outpatient. Her stress test did not demonstrate a high risk scan. 2. Left ventricular systolic dysfunction She does have evidence of left ventricular systolic dysfunction. An echocardiogram will be obtained to reassess her left ventricular function. She will continue on the beta-yamilka in the meantime. Would recommend discontinuing the digoxin especially with her renal dysfunction Discontinue lisinopril for now 3. Status post ICD implantation He does have an ICD implanted and previously was being followed up at the [facility]. We will have her follow-up in our clinic. And continue to monitor it. 4. Atrial fibrillation Patient appears to have chronic atrial fibrillation. She is anticoagulated and she has a controlled ventricular response rate. We will continue the same anticoagulation maintaining an INR of 2-3 and follow her up in the office. 5. Risk factor modification Continue with aggressive risk factor modification. Thank you for allowing me to participate in the care of your patient. Please don't hesitate to call if any issues arise
--- NOTE | 2019-03-10 16:02 | CON.PCM_ITS ---
Reason for Consult Date of Consultation: 03/10/19 Reason for Consultation: Abnormal stress test and chest pain History of Present Illness: The patient is a 58 year old F with a significant cardiac history with 3 previously placed stents, cardiomyopathy, atrial fibrillation, status post ICD implantation who presented to the hospital because of right-sided chest discomfort which she describes as constant. She says that this is quite different from what she had in the past before she had her stents. She has had no dizziness or diaphoresis no near syncope or syncope. She had an EKG and blood work done and was scheduled for a stress test. The stress test demonstrated evidence of lateral ischemia with her previous infarct. She also has significant renal dysfunction and indeed presented to the emergency room with worsening renal function a few weeks ago. She says that she has not taken any nitroglycerin for her chest discomfort. [] Past Medical History Allergies/Adverse Reactions: Allergies codeine Allergy (Verified 03/06/19 18:31) Rash latex Allergy (Verified 03/06/19 18:31) Itching Penicillins Allergy (Verified 03/11/18 20:20) Swelling dexamethasone [From Maxidex] Adverse Reaction (Verified 03/06/19 18:31) Unknown iodine Adverse Reaction (Verified 03/06/19 18:31) Itching morphine Adverse Reaction (Verified 03/06/19 18:31) Other Home Medications: Ambulatory Orders Medication Instructions Recorded Lisinopril [Zestril] 20 mg PO DAILY 07/02/13 Lorazepam 0.5 mg PO TID PRN PRN 07/02/13 Albuterol IH (ProAir) [Proair Hfa] 2 puff INHALATION Q4H PRN PRN 07/19/13 Nitroglycerin [Nitrostat] 0.4 mg SL PRN PRN 07/19/13 Warfarin [Coumadin] 5 mg PO TUTHSA 07/19/13 Atorvastatin Calcium [Lipitor] 40 mg PO QHS 06/02/15 Digoxin [Lanoxin] 125 mcg PO DAILY 06/02/15 Esomeprazole Mag Trihydrate 40 mg PO DAILY 06/02/15 [Nexium] Gabapentin [Neurontin] 600 mg PO TID 06/02/15 Hydrochlorothiazide 25 mg PO DAILY 06/02/15 Cholecalciferol (Vitamin D3) 50,000 units PO MO 03/08/16 [Vitamin D3] Insulin U-500 [Humulin R U-500 70 unit SC DINNER 03/08/16 ([facility])] Insulin U-500 [Humulin R U-500 80 units SC BREAKFAST 03/08/16 ([facility])] Warfarin [Coumadin] 7.5 mg PO SUMOWEFR 03/08/16 buPROPion SR [Wellbutrin SR (150mg 450 mg PO DAILY 03/08/16 tablets)] Carvedilol [Coreg (Beta Yamilka)] 25 mg PO BID 07/07/17 Aspirin [Aspirin, Baby] 81 mg PO DAILY@0800 08/15/17 Furosemide 40 mg PO DAILY 03/06/19 traMADol [Ultram] 50 mg PO 4X/DAY 03/08/19 Isosorbide Mononitrate [Imdur] 30 mg PO DAILY #30 tablet 03/10/19 Past Medical History (Chronic Problems): Chronic Problems S/P AKA (above knee amputation) (Chronic) Morbid obesity (Chronic) Type II diabetes mellitus (Chronic) Ischemic cardiomyopathy (Chronic) History of atrial fibrillation (Chronic) History of DVT of lower extremity (Chronic) History of hypothyroidism (Chronic) coronary artery disease,prior stents. (Chronic) Tobacco abuse (Chronic) Surgical History: adenoidectomy, cholecystectomy, hysterectomy, tonsillectomy, - - Right hityw-oih-sfee amputation, panniculectomy, pacemaker placement, left leg vein grafting/bypass. 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 Lives: Roommate Smoking Status: Former smoker Alcohol: None Drugs: None Review of Systems - Review of Systems General: Denies: Fever, Night Sweats, Fatigue HEENT: Denies: Vision Change Cardiovascular: Reports: Chest Discomfort. Denies: Shortness of Breath, Orthopnea, PND, Peripheral Edema, Palpitations, Lightheadedness, Dizziness, Near Syncope, Syncope Respiratory: Denies: Cough, Sputum Production, Hemoptysis Gastrointestinal: Denies: Hematemesis, Hematochezia, Melena Genitourinary: Denies: Dysuria, Hematuria Skin: Denies: Rash Neurological: Denies: Dizziness Psychiatric: Denies: Anxiety Endocrine: Denies: Unexplained Weight Loss Subjectve: Middle-aged lady in no distress Objective: Vital Signs Temp Pulse Resp BP Pulse Ox 97.8 F 75 15 137/70 H 98 03/10/19 14:43 03/10/19 15:23 03/10/19 14:43 03/10/19 14:43 03/10/19 14:43 Oxygen Delivery Method Room Air Weight: 272 lb 4.334 oz Body Mass Index (BMI) 35.9 Finger Stick Blood Glucose 140 Intake and Output for Last 24 Hours 03/08/19 03/09/19 03/10/19 23:59 23:59 23:59 Intake Total 873 / 873 3779 / 3779 1092 / 1092 Output Total 100 / 100 Balance 873 / 873 3779 / 3779 992 / 992 General: Awake, Alert, Oriented x 3 HEENT: PERRL, EOMI, Sclera Non Icteric Neck: Supple, Good ROM, No Lymph Node Enlargement Lungs: Clear to auscultation Cardiovascular: Regular Rhythm, Normal S1, Normal S2, No Murmurs, No Rubs, No Gallops Vascular: No Carotid Bruits, Normal Femoral Pulses, Normal Radial Pulses, Normal Dorsalis Pedal Pulse, Normal Posterior Tibial Pulses Abdomen: Bowel Sounds Present, Soft, Non Tender, No HSM, No Organomegaly Extremities: No Cyanosis, No Clubbing, No edema, - - Right leg amputee Musculoskeletal: No Erythema Skin: No Rashes Lymphatic: No Lymph Node Enlargement Neurological: No Focal Motor or Sensory Deficit Psych/Mental Status: Appropriate 03/10/19 05:25: PT 19.7 H, INR 1.7, APTT 37.4 H 03/10/19 05:25: Sodium 142, Potassium 5.0, Chloride 111 H, Carbon Dioxide 23.0, Anion Gap 8, BUN 70 H, Creatinine 2.11 H, Est GFR (MDRD) Af Amer 31 L, Est GFR (MDRD) Non-Af 26 L, BUN/Creatinine Ratio 33.2 H, Glucose 95, Calcium 9.4 03/10/19 05:25: WBC 5.4, RBC 3.28 L, Hgb 10.3 L, Hct 30.5 L, MCV 93.0, MCH 31.4, MCHC 33.8, RDW 13.2, RDW Differential 42.9, Plt Count 148 L, MPV 12.1 H, Immature Gran % (Auto) 0.200, Neut % (Auto) 54.8, Lymph % (Auto) 30.7, [place] % (Auto) 8.9, Eos % (Auto) 5.0, Baso % (Auto) 0.4, Absolute Neuts (auto) 3.0, Total Counted Not Reportable Rhythm: EKG: Atrial fibrillation with a paced ventricular rhythm at 70 bpm ECHO: Stress Test: Ischemic cardiomyopathy with estimated ejection fraction of 32%. Lateral infarct with mild lateral ischemia Assessment/Plan 1. Coronary artery disease with abnormal stress test * Presents with atypical chest discomfort and has a stress test which is abnormal with lateral infarct and mild lateral ischemia. At this time with her renal function which is rather precarious I am very hesitant to proceed with a cardiac catheterization unless maximum medical therapy has been tried. * My recommendation at this time would be to start her on isosorbide and see how she responds to the above. If she continues to have chest discomfort then we may need to proceed with a cardiac catheterization. I discussed the above with her at this particular time she is not keen on proceeding with a cardiac catheterization in 1 to be discharged and followed up as an outpatient. Her stress test did not demonstrate a high risk scan. * 2. Left ventricular systolic dysfunction * She does have evidence of left ventricular systolic dysfunction. An echocardiogram will be obtained to reassess her left ventricular function. * She will continue on the beta-yamilka in the meantime. * Would recommend discontinuing the digoxin especially with her renal dysfunction * Discontinue lisinopril for now 3. Status post ICD implantation * He does have an ICD implanted and previously was being followed up at the [facility]. We will have her follow-up in our clinic. And continue to monitor it. * 4. Atrial fibrillation * Patient appears to have chronic atrial fibrillation. She is anticoagulated and she has a controlled ventricular response rate. We will continue the same anticoagulation maintaining an INR of 2-3 and follow her up in the office. * 5. Risk factor modification * Continue with aggressive risk factor modification. * Thank you for allowing me to participate in the care of your patient. Please don't hesitate to call if any issues arise
[2019-03-10] MEDS: Insulin Lispro 100 UNIT/ML INSULN.PEN SQ (16:46)
[2019-03-10 17:06] LABS: Bedside Glucose 284 mg/dL (70-110)
== END 2019-03-10 20:10 | disposition home or self-care (01) ==
LOC: ED 16:23 → PCU 16:32
PROVIDERS: Internal Medicine; Nurse Practitioner Family; Admitting Provider Family Medicine; Emergency Provider Emergency Medicine; Family Provider Internal Medicine; PCP Internal Medicine; Referring Provider Family Medicine; Visit Provider Hospitalist
DX: R07.89 Other chest pain (principal); I25.10 Atherosclerotic heart disease of native coronary artery without angina pectoris; E87.5 Hyperkalemia; E66.01 Morbid (severe) obesity due to excess calories; I25.5 Ischemic cardiomyopathy; E03.9 Hypothyroidism, unspecified; K21.9 Gastro-esophageal reflux disease without esophagitis; F41.9 Anxiety disorder, unspecified; F32.9 Major depressive disorder, single episode, unspecified; I48.0 Paroxysmal atrial fibrillation; N18.4 Chronic kidney disease, stage 4 (severe); E11.22 Type 2 diabetes mellitus with diabetic chronic kidney disease; I12.9 Hypertensive chronic kidney disease with stage 1 through stage 4 chronic kidney disease, or unspecified chronic kidney disease; N17.9 Acute kidney failure, unspecified; Z68.35 Body mass index [BMI] 35.0-35.9, adult; Z71.3 Dietary counseling and surveillance; Z95.5 Presence of coronary angioplasty implant and graft; Z95.810 Presence of automatic (implantable) cardiac defibrillator; Z89.612 Acquired absence of left leg above knee; Z79.4 Long term (current) use of insulin; Z79.899 Other long term (current) drug therapy; Z79.01 Long term (current) use of anticoagulants; Z79.82 Long term (current) use of aspirin; Z86.718 Personal history of other venous thrombosis and embolism; Z87.891 Personal history of nicotine dependence; D63.8 Anemia in other chronic diseases classified elsewhere; E11.51 Type 2 diabetes mellitus with diabetic peripheral angiopathy without gangrene; R94.39 Abnormal result of other cardiovascular function study
CPT/HCPCS: 36415; 71045; 78452; 80048; 80162; 82962; 83036; 84443; 84484; 85025; 85610; 85730; 93005; 93017; 96361; 96374; 97161; 97165; 99218; 99285; A9500; J7030; A4216; G0378; J2405; J2785

== ENCOUNTER 2019-03-22 18:29 | Emergency (ER) | payer MEDICARE, SELFPAY ==
[2019-03-08 16:56] VITALS: BMI 35.9
[2019-03-22 18:34] VITALS: BP 139/78; PULSE 77; RESP 18; TEMP 36.7; O2SAT 95; BMI 36.1
--- NOTE | 2019-03-22 19:09 | CT_ITS ---
STUDY: CT BRAIN WITHOUT CONTRAST REASON FOR EXAM: Female, 58 years old. Hallucinations RADIATION DOSAGE (If Supplied By Facility): CTDIvol = ( 44.99 ) mGy, DLP = ( 812.98 ) mGycm TECHNIQUE: Transaxial CT imaging of the brain was performed without administration of intravenous contrast material. Individualized dose optimization techniques were used for this CT. COMPARISON: No relevant priors. FINDINGS: There is a wedge-shaped hypodensity involving a large portion of the right parietal and temporal lobes, presumably encephalomalacia. There is a smaller focal region in the posterior right frontal lobe. There is no mass effect, midline shift, acute intracranial hemorrhage, hydrocephalus or herniations. The skull is intact. CT/Brain/Head without Contrast IMPRESSION: 1. Large remote infarct in the right temporoparietal lobe. Electronically Signed: Prabhu Newell, at 20:09 EDT Tel , Service support ,
--- NOTE | 2019-03-22 19:23 | ED.DCSUM_ITS ---
- ER Visit Summary Date of Service: 03/22/19 Chief Complaint: Hallucination History of Present Illness: The patient is a 58 F history of insulin-dependent diabetes, CAD, NM, cardiac stents, pacemaker defibrillator and renal insufficiency. Patient states that today around 10 AM she started having hallucinations. Visual and auditory. States she saw her mother. She knew she is been . Talking to her. Also had hallucinations of other people she knows. She also states she saw Elves. She denies any recent head injury or headache. She denies any nausea, vomiting or diarrhea. She states she does smoke marijuana to cope with her anxiety and smoked marijuana today but says she does at all and has never had hallucinations before. She denies being suicidal or homicidal. Physical Examination: Middle-aged female no acute distress. Vital signs are stable afebrile. Pulse ox 95% on room air no hypoxia. HEENT exam unremarkable atraumatic. Pupils round reactive light. No facial droop. Normal speech. Neck nontender. Lungs clear to auscultation bilaterally. Heart regular rhythm no murmur. Chest wall nontender. Abdomen is soft and nontender normal bowel sounds without peritoneal signs. She is obese. Patient moving all 4 extremities. She has trace edema of the left lower leg. Dorsi plantarflexion intact. Her right lower leg has an ksahl-jza-[id number] amputation. Upper extremities are unremarkable. Neurologically she is awake and alert. Answering questions and following commands. She is not combative. She is not loud or violent. She is not screaming or yelling. She does seem anxious. Test Results: CBC shows a white count of 10. Chronic anemia with a hemoglobin 11 which is her baseline. Sodium 129. Gap is 7. Glucose is only 52. We gave her some the eat. Glucose was rechecked is 103. BUN 63. Creatinine 2.95 p reviously had a creatinine of 2.45. She has known chronic kidney disease and is being observed currently by a loading dock helper. Her INR is 2.4 she is on Coumadin. Her alcohol was less than 3.0. 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 No acute bleed. Emergency Department Course and Treatment: Patient with new onset of visual and auditory hallucinations. Labs will be obtained. And she is currently being evaluated by the aids social worker. Repeat exam patient is doing well at 2052. She feels currently discharged home. States she is mildly nauseated will be given some IV Zofran and Zofran home pack. I went over test with her. I also had the patient evaluated by social work case manager who thinks a lot of this is stress and anxiety. Patient is very concerned about her worsening kidney function. But both social work case manager and myself will help with her being discharged home. She is not homicidal or suicidal. Currently she is no longer seeing any hallucinations. Treatment Plan: Follow-up with her primary care physician. Make sure she is drinking plenty of fluids. Disposition: Discharge Impression: Acute visual and auditory hallucinations of uncertain etiology History of insulin dependent diabetes History of CAD, NM, cardiac stents and defibrillator pacemaker Anticoagulated on Coumadin History of renal insufficiency Prior stroke on CAT scan This note was generated with [employer] dictation software. It may contain incorrect words, spelling, and punctuation that were not noted in review of the chart prior to signing ED Disposition - Plan for ED Patient: Referrals: Leslie Bird MD [Primary Care Provider] -
[2019-03-22 19:31] LABS: Bedside Glucose 50 mg/dL (70-110)
[2019-03-22 19:44] LABS: Absolute Lymphocyte Count 1.38 X10^3/ul (0.83-4.51); Absolute Neutrophil Count 7.5 X10^3/uL (2.0-7.7); Basophil# 0.02 X10^3/uL; Basophil% 0.2 % (0-1); Eosinophil# 0.27 X10^3/uL; Eosinophils% 2.7 % (0-5); Hematocrit 33.1 % (37-47); Hemoglobin 11.3 g/dl (12.0-15.0); Lymphocyte # 1.38 X10^3/ul (4.0); Lymphocyte % 13.9 % (19-41); Mean Corp Hgb Conc 34.1 g/gl (32-36); Mean Corpuscular Hgb 31.5 pg (27.0-32.0); Mean Corpuscular Volume 92.2 fL (81-99); Mean Platelet Vol. 11.5 fl (6.2-12.0); Monocyte# 0.74 X10^3/uL; Monocyte% 7.4 % (0-10); Neutrophil # 7.53 X10^3/uL (2.7-7.7); Neutrophil % 75.7 % (47-70); Platelet Count 182 K/mm3 (150-450); RBC Distribution Width CV 13.4 % (11.6-14.6); Red Blood Count 3.59 M/mm3 (4.2-5.4)
[2019-03-22 19:45] LABS: POSITIVE COUNT NO; POSITIVE DIFFERENTIAL NO; POSITIVE MORPHOLOGY NO
[2019-03-22 19:50] LABS: International Normalized Ratio 2.4; Prothrombin Time (Protime)PT. 26.3 SECONDS (11.7-14.9)
[2019-03-22 20:01] LABS: Anion Gap 7 (5-15); BUN 63 mg/dL (7-18); BUN/Creat Ratio 21.4 RATIO (10-20); Calcium,Total 9.6 mg/dL (8.5-10.1); Chloride 94 mmol/L (98-107); Creatinine, Serum 2.95 mg/dL (0.55-1.02); EST Glomerular Filtration Rate 17 mL/min (>60); Est Glom Filt Rate - Afr Amer 21 mL/min (>60); Estimated Creatinine Clearance 25.04 ml/min; Glucose 52 mg/dL (74-106); Potassium 3.9 mmol/L (3.5-5.1); Sodium Level 129 mmol/L (136-145)
[2019-03-22 20:15] LABS: Alcohol, Blood (Medical)-Serum < 3.0 mg/dL
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
[2019-03-22 20:35] LABS: Bedside Glucose 103 mg/dL (70-110)
--- NOTE | 2019-03-22 20:59 | ED.DEP ---
ED Disposition - Plan for ED Patient: Disposition: Home or Assisted Living Instructions: Anxiety Reaction Prescriptions: Ondansetron [Zofran Odt] 4 mg PO Q8H PRN PRN #10 tab PRN Reason: Nausea Prescription Printed Referrals: Leslie Bird MD [Primary Care Provider] - As soon as possible Additional Instructions: Zofran as needed for nausea. Call follow-up with your primary care physician this coming week. Make sure you are drinking plenty of fluids to help protect her kidneys. Check your blood sugars frequently and tonight before you go to bed.
[2019-03-22] MEDS: Ondansetron 4 MG/2 ML Vial IV (21:06)
[2019-03-22 21:25] LABS: Bedside Glucose 102 mg/dL (70-110)
[2019-03-22 21:47] VITALS: BP 151/89; PULSE 79; RESP 16; O2SAT 98
== END 2019-03-22 21:53 | disposition home or self-care (01) ==
PROVIDERS: Emergency Provider Emergency Medicine; Family Provider Internal Medicine; PCP Internal Medicine
DX: R44.0 Auditory hallucinations (principal); R44.1 Visual hallucinations; I12.9 Hypertensive chronic kidney disease with stage 1 through stage 4 chronic kidney disease, or unspecified chronic kidney disease; E11.22 Type 2 diabetes mellitus with diabetic chronic kidney disease; N18.9 Chronic kidney disease, unspecified; I25.10 Atherosclerotic heart disease of native coronary artery without angina pectoris; R11.0 Nausea; F41.9 Anxiety disorder, unspecified; E66.9 Obesity, unspecified; I25.2 Old myocardial infarction; Z79.01 Long term (current) use of anticoagulants; Z79.4 Long term (current) use of insulin; Z79.82 Long term (current) use of aspirin; Z79.899 Other long term (current) drug therapy; Z86.73 Personal history of transient ischemic attack (TIA), and cerebral infarction without residual deficits; Z87.891 Personal history of nicotine dependence; Z89.611 Acquired absence of right leg above knee; Z95.5 Presence of coronary angioplasty implant and graft; Z95.810 Presence of automatic (implantable) cardiac defibrillator
CPT/HCPCS: 70450; 80048; 80320; 82962; 85025; 85610; 96374; 99285; J7030; A4216; G0480; J2405

== ENCOUNTER 2019-05-01 18:31 | Emergency (ER) | payer MEDICARE, SELFPAY ==
[2019-05-01 18:32] VITALS: BP 129/91; PULSE 78; RESP 16; TEMP -17.7; TEMP 0; O2SAT 100; BMI 37.8
--- NOTE | 2019-05-01 18:42 | ED.DCSUM_ITS ---
History of Present Illness Chief Complaint: Hypoglycemia Informant: Patient Onset: Today Context: Sudden Onset Quality: Low blood sugar Location: Home Current Severity: Mild Maximum Severity: Severe Worsened by: Unknown certain Relieved by: Oral glucose Associated Symptoms: Nausea and diaphoresis Narrative: Patient is a 58-year-old type I diabetic who called paramedics because of low blood sugar. She was administer oral glucose. Blood sugar per paramedics is 45. Blood sugar in the department is 51. She reports improvement. She denied any other symptoms Prior similar symptoms: Yes - March 06, 2019 Recent Illness/Hospitalization: No - Past Medical History (1) Asthma Status: Chronic (2) Atrial fibrillation Status: Chronic (3) COPD (chronic obstructive pulmonary disease) Status: Chronic (4) Chronic renal insufficiency Status: Chronic (5) Coronary artery disease Status: Chronic (6) Diabetes mellitus Status: Chronic Comment: type II (7) HLD (hyperlipidemia) Status: Chronic (8) History of DVT of lower extremity Status: Chronic (9) Ischemic cardiomyopathy Status: Chronic (10) Morbid obesity Status: Chronic (11) Tobacco abuse Status: Chronic Past Medical History - Allergies and Home Meds Allergies/Adverse Reactions: Allergies codeine Allergy (Verified 05/01/19 18:38) Rash latex Allergy (Verified 05/01/19 18:38) Itching Penicillins Allergy (Verified 05/01/19 18:38) Swelling dexamethasone [From Maxidex] Adverse Reaction (Verified 05/01/19 18:38) Unknown iodine Adverse Reaction (Verified 05/01/19 18:38) Itching morphine Adverse Reaction (Verified 05/01/19 18:38) Other contrast dye Allergy (Uncoded 05/01/19 18:38) GI upset GI upset Primary Care Physician: Leslie Bird MD [Primary Care Provider] - Prior records reviewed: Yes Surgical History: adenoidectomy, cholecystectomy, hysterectomy, tonsillectomy, - - Right [id number] amputation, panniculectomy, pacemaker placement, left leg vein grafting/bypass. Lives: Alone Smoking Status: Former smoker Alcohol: None Drugs: None - Family History Maternal Family History: Reports: Diabetes, Heart Disease, Hypertension Paternal Family History: Reports: Heart Disease, - - Mesothelioma. Review of Systems General: Reports: Malaise, Sweats Eyes: Denies: Visual changes - bilaterally, Blurred Vision - bilaterally, Diplopia ENT: Denies: Rhinorrhea, Sore throat Cardiovascular: Denies: Chest pain, Palpitations Respiratory: Denies: Dyspnea, Cough, Dyspnea on exertion Gastrointestinal: Reports: Nausea. Denies: Abdominal pain, Vomiting, Diarrhea, Constipation, Melena, Hematochezia, -, - Genitourinary: Denies: Dysuria, Hematuria, Frequency Musculoskeletal: Denies: Myalgias, Arthralgias, Neck pain, Back pain, Swelling, Extremity Pain, -, - Skin: Denies: Rash, Wounds Neurological: Reports: Weakness Endocrine: Denies: Polyuria, Polydipsia Physical Exam Vital Signs/Narrative: Vital Signs Temp Pulse Resp BP Pulse Ox 05/01/19 18:32 0 F L 78 16 129/91 H 100 Inital Vital Signs reviewed: Yes General: Well nourished, Well developed, No Acute Distress Head: Normocephalic, Atraumatic Eyes: Perrl, EOMI ENT: Moist mucous membranes, No rhinorrhea Neck: Supple, Nontender, No lymphadenopathy, No JVD, - Cardiovascular: Regular rate, Regular rhythm, No murmurs, Normal S1, Normal S2 Respiratory: No distress, CTA bilaterally, Chest nontender Abdomen: Soft, Nontender, Nondistended, Normal bowel sounds Skin: Normal color, No rash, Diaphoresis, No Trauma. Negative for: Cyanosis, Jaundice Neurological: Alert, Oriented x3, Cranial nerves II-XII grossly intact, Normal Strength, Normal Sensation Psychological: Normal affect, Normal Mood Diagnostic/Tx/Re-eval Laboratory Results 05/01/19 19:47 POC Glucose 77 - Medical Decision Making Patient was given food to eat. Will reassess blood sugar at 1915. Repeat blood sugar 77. Patient states she is at baseline. Therefore, will dis charge to home ED Disposition - Plan for ED Patient: Disposition: Home or Assisted Living Diagnosis: Hypoglycemia due to type 1 diabetes mellitus Instructions: Diabetic Insulin Reaction Referrals: Leslie Bird MD [Primary Care Provider] - As Needed
[2019-05-01 19:51] LABS: Bedside Glucose 77 mg/dL (70-110)
[2019-05-01 20:14] VITALS: BP 134/80; PULSE 75; RESP 16
[2019-05-01 20:28] VITALS: BP 144/97
[2019-05-02 07:41] LABS: Bedside Glucose 51 mg/dL (70-110)
== END 2019-05-01 20:55 | disposition home or self-care (01) ==
PROVIDERS: Emergency Provider Emergency Medicine; Family Provider Internal Medicine; PCP Internal Medicine
DX: E10.649 Type 1 diabetes mellitus with hypoglycemia without coma (principal); E11.22 Type 2 diabetes mellitus with diabetic chronic kidney disease; N18.4 Chronic kidney disease, stage 4 (severe); I48.2 Chronic atrial fibrillation; I25.10 Atherosclerotic heart disease of native coronary artery without angina pectoris; I25.5 Ischemic cardiomyopathy; J45.909 Unspecified asthma, uncomplicated; J44.9 Chronic obstructive pulmonary disease, unspecified; E78.5 Hyperlipidemia, unspecified; E66.01 Morbid (severe) obesity due to excess calories; Z79.4 Long term (current) use of insulin; Z79.01 Long term (current) use of anticoagulants; Z79.82 Long term (current) use of aspirin; Z79.899 Other long term (current) drug therapy; Z86.718 Personal history of other venous thrombosis and embolism; Z87.891 Personal history of nicotine dependence; Z88.0 Allergy status to penicillin; Z88.8 Allergy status to other drugs, medicaments and biological substances; Z90.49 Acquired absence of other specified parts of digestive tract; Z90.710 Acquired absence of both cervix and uterus
CPT/HCPCS: 82962; 99284; A4216

== ENCOUNTER 2019-07-04 09:47 | Emergency (ER) | payer MEDICARE, SELFPAY ==
[2019-07-04] VITALS (14 sets, daily range): BP systolic 122–164; BP diastolic 80–116; PULSE 75–80; RESP 12–23; TEMP 36.9; O2SAT 95–99; BMI 35.6
--- NOTE | 2019-07-04 09:55 | RAD_ITS ---
STUDY: X-RAY CHEST REASON FOR EXAM: Female, 59 years old. Chest pain and chest heaviness. TECHNIQUE: Single AP portable view of the chest. COMPARISON: Comparison is made with prior examination dated March 08, 2019. FINDINGS: EKG electrodes are seen. There is evidence of vascular congestion and a mild degree of CHF. Blunting of both cause phrenic angles with mild bibasilar atelectasis. There is moderate cardiac enlargement. Left-sided dual-chamber pacemaker is seen. Normal mediastinum and bridgett. Normal visualized pulmonary arteries. There is atherosclerotic calcification of the aortic arch with tortuosity. There are diffuse degenerative changes of the visualized thoracic spine. Normal visualized ribs, clavicles, and shoulders. There is no demonstrated abnormality of the visualized soft tissue structures of the upper abdomen. RAD/Chest 1 View (Portable) IMPRESSION: Cardiomegaly. Mild degree of CHF with blunting of both costophrenic angles and mild bibasilar atelectasis. Electronically Signed: Willi Pittman, at 10:32 EDT , Service support ,
--- NOTE | 2019-07-04 10:09 | ED.VIS.GEN ---
History of Present Illness Chief Complaint: Chest Pain Informant: Patient Onset: Hours Context: Sudden Onset Timing: Continuous Quality: Tightness, positive Short sign Location: Substernal Current Severity: Mild Maximum Severity: Moderate Worsened by: Nothing Relieved by: Improved after 1 nitro Associated Symptoms: No associated symptoms or radiation Narrative: Patient is a middle-aged woman with history of coronary disease and prior IA with 3 stents who presents because she was awakened from sleep at 07 100 with midsternal chest tightness without radiation or associated symptoms who arrived by ambulance. She received aspirin in route and one nitro. She reports improvement with one nitro. States she had similar presentation last admission. Her stress test was abnormal. She states she did not have a cardiac cath because her GFR was 15. She does have a pacemaker as well as an ACID. She denies GI symptoms. Denies black or maroon stool. She denies increased orthopnea and denies PND. She states her japanese interpreter is Dr. Gabriel Prior similar symptoms: Yes Recent Illness/Hospitalization: Yes - Past Medical History (1) Asthma Status: Chronic (2) Atrial fibrillation Status: Chronic (3) COPD (chronic obstructive pulmonary disease) Status: Chronic (4) Chronic renal insufficiency Status: Chronic (5) Coronary artery disease Status: Chronic (6) Diabetes mellitus Status: Chronic Comment: type II (7) HLD (hyperlipidemia) Status: Chronic (8) History of DVT of lower extremity Status: Chronic (9) Hypothyroidism Status: Chronic (10) Ischemic cardiomyopathy Status: Chronic (11) Morbid obesity Status: Chronic (12) Tobacco abuse Status: Chronic (13) Above knee amputation of right lower extremity Status: Resolved (14) CVA (cerebral vascular accident) Status: Resolved Comment: 2001 (15) History of permanent cardiac pacemaker placement Status: Resolved Comment: 09/08/2013,StNikunj Farrar. Dr. Wilkins [facility] Past Medical History - Allergies and Home Meds Allergies/Adverse Reactions: Allergies codeine Allergy (Verified 07/04/19 09:51) Rash latex Allergy (Verified 07/04/19 09:51) Itching Penicillins Allergy (Verified 07/04/19 09:51) Swelling dexamethasone [From Maxidex] Adverse Reaction (Verified 07/04/19 09:51) Unknown iodine Adverse Reaction (Verified 07/04/19 09:51) Itching morphine Adverse Reaction (Verified 07/04/19 09:51) Other contrast dye Allergy (Uncoded 07/04/19 09:51) GI upset GI upset Primary Care Physician: Leslie Bird MD [Primary Care Provider] - Prior records reviewed: Yes Surgical History: adenoidectomy, cholecystectomy, hysterectomy, tonsillectomy, - - Right [id number] amputation, panniculectomy, pacemaker placement, left leg vein grafting/bypass. Lives: Alone Smoking Status: Former smoker Alcohol: None Drugs: None - Family History Maternal Family History: Reports: Diabetes, Heart Disease, Hypertension Paternal Family History: Reports: Heart Disease, - - Mesothelioma. Review of Systems General: Denies: Chills, Fever, Sweats Eyes: Denies: Visual changes - bilaterally, Blurred Vision - bilaterally, Diplopia ENT: Denies: Rhinorrhea, Sore throat Cardiovascular: Reports: Chest pain. Denies: Palpitations, Heart racing Respiratory: Denies: Dyspnea, Cough, Sputum, Dyspnea on exertion, Orthopnea, Paroxysmal nocturnal dyspnea, -, - Gastrointestinal: Denies: Abdominal pain, Nausea, Vomiting, Diarrhea, Melena, Hematochezia Genitourinary: Denies: Dysuria, Hematuria, Frequency Musculoskeletal: Denies: Myalgias, Arthralgias, Neck pain, Back pain, Swelling, Extremity Pain Skin: Denies: Rash, Wounds Neurological: Denies: Weakness, Parasthesia Endocrine: Denies: Polyuria, Polydipsia Hematologic: Denies: Easy bruising, Easy bleeding Physical Exam Vital Signs/Narrative: Vital Signs Temp Pulse Resp BP Pulse Ox 07/04/19 09:56 99 07/04/19 09:48 98.5 F 75 19 H 148/95 H 98 Inital Vital Signs reviewed: Yes General: Well nourished, Well developed, No Acute Distress Head: Normocephalic, Atraumatic Eyes: Perrl, EOMI. Negative for: Pale conjunctiva, Scleral icterus ENT: Moist mucous membranes, No rhinorrhea Neck: Supple, Nontender, No lymphadenopathy, No JVD, - Cardiovascular: Regular rate, Regular rhythm, No murmurs, Normal S1, Normal S2 Respiratory: No distress, CTA bilaterally, Chest nontender Abdomen: Soft, Nontender, Nondistended, Normal bowel sounds Rectal: Deferred Back: Nontender. Negative for: Normal Inspection Extremities: Nontender, No edema, - - AKA right lower extremity Skin: No rash, No Trauma, Pallor. Negative for: Cyanosis, Diaphoresis, Jaundice Neurological: Alert, Oriented x3, Cranial nerves II-XII grossly intact, Normal Strength, Normal Sensation. Negative for: Normal Gait Psychological: Depressed Diagnostic/Tx/Re-eval Chest X-Ray - ED: 1 View, Read by ED Physician, Normal, Heart, Bony Structures, CHF, - - Dual-chamber pacemaker/defibrillator noted. Increased interstitial markings and cephalization noted which is new compared to March 08, 2019. Impressions Chest X-Ray 07/04/19 09:55 IMPRESSION: Cardiomegaly. Mild degree of CHF with blunting of both costophrenic angles and mild bibasilar atelectasis. Electronically Signed: Willi Pittman, at 10:32 EDT , Service support , 07/04/19 09:55 Chest 1 View (Portable) [RAD] Stat Laboratory Results 07/04/19 07/04/19 10:01 10:01 WBC 6.8 RBC 3.61 L Hgb 10.8 L Hct 34.5 L MCV 95.6 MCH 29.9 MCHC 31.3 L RDW Std Deviation 52.2 H RDW Coeff of Yoandy 15.2 H Plt Count 145 L MPV 11.5 Immature Gran % (Auto) 0.400 Neut % (Auto) 82.8 H Lymph % (Auto) 11.1 L [place] % (Auto) 5.2 Eos % (Auto) 0.1 Baso % (Auto) 0.4 Absolute Neuts (auto) 5.6 Absolute Lymphs (auto) 0.75 L Nucleated RBC % 0 Sodium 138 Potassium 4.0 Chloride 107 Carbon Dioxide 28.0 Anion Gap 3 L BUN 45 H Creatinine 1.98 H Estim Creat Clear Calc 36.86 Est GFR (MDRD) Af Amer 33 L Est GFR (MDRD) Non-Af 28 L BUN/Creatinine Ratio 22.7 H Glucose 140 H Calcium 9.6 Troponin I < 0.015 Initial troponins normal. Chest x-ray reveals congestive heart failure. Patient's story is concerning. Her score is 5. Will contact hospitalist for admission and consultation with cardiology. - Rhythm Strip Rhythm Strip: Paced rhythm Ectopy: None - EKG Initial EKG Interpretation: - - Wide-complex With pacer spikes noted prior to most complexes. QRS duration 164 ms. QT duration 512 ms. [place] to the left. There is no acute ischemic changes noted. - Medical Decision Making Sent with coronary disease and multiple risk factors who presents with concerning chest pain. Since she reports improvement with one nitro she was given additional nitro. Will review prior records to determine when she was last admitted and had the abnormal stress test. Will discuss case with her japanese interpreter. Differential diagnosis includes angina, non-STEMI, noncardiac chest pain Patient was informed of her test results. She requested I speak with Dr. Garces her japanese interpreter, who is affiliated with the [facility]. Lasix and nitroglycerin was ordered to treat her congestive heart failure. Keren returned Dr. Watson's call. She informed that Dr. Garces is getting and reason he has not called back. The patient will be seen by Dr. Sargent in consultation. She recommended that I contact the hospitalist. The [facility] transfer line was contacted by secretary specialist. Will speak with hospitalist regarding patient. Since made aware that she was not a candidate from [facility]. She was informed that I have spoken to the transfer person and awaiting callback from cardiology/hospitalist. She understands. She does not wish to stay at [facility]. ED Disposition - Plan for ED Patient: Disposition: [facility] Diagnosis: Angina at rest, CHF exacerbation, Coronary artery disease, Chronic renal insufficiency, Ischemic cardiomyopathy Referrals: Leslie Bird MD [Primary Care Provider] -
[2019-07-04 10:10] LABS: Absolute Lymphocyte Count 0.75 X10^3/uL (0.83-4.51); Absolute Neutrophil Count 5.6 X10^3/uL (2.0-7.7); Basophil# 0.03 X10^3/uL; Basophil% 0.4 % (0-1); Eosinophil# 0.01 X10^3/uL; Eosinophils% 0.1 % (0-5); Hematocrit 34.5 % (37-47); Hemoglobin 10.8 g/dL (12.0-15.0); Lymphocyte # 0.75 X10^3/ul (4.0); Lymphocyte % 11.1 % (19-41); Mean Corp Hgb Conc 31.3 g/dL (32-36); Mean Corpuscular Hgb 29.9 pg (27.0-32.0); Mean Corpuscular Volume 95.6 fL (81-99); Mean Platelet Vol. 11.5 fl (6.2-12.0); Monocyte# 0.35 X10^3/uL; Monocyte% 5.2 % (0-10); NRBC Flagged by Analyzer 0 % (0-5); Neutrophil % 82.8 % (47-70); Platelet Count 145 K/mm3 (150-450); RBC Distribution Width CV 15.2 % (11.6-14.6); RBC Distribution Width SD 52.2 fl (35.1-43.9); Red Blood Count 3.61 M/mm3 (4.2-5.4); White Blood Count 6.8 K/mm3 (4.4-11.0)
[2019-07-04] MEDS: Nitroglycerin SL (ED/IMG/CATH) 0.4 MG TABLET SUBLINGUAL ×2 (10:20→10:25)
[2019-07-04 10:26] LABS: Anion Gap 3 (5-15); BUN 45 mg/dL (7-18); BUN/Creat Ratio 22.7 RATIO (10-20); Calcium,Total 9.6 mg/dL (8.5-10.1); Chloride 107 mmol/L (98-107); Creatinine, Serum 1.98 mg/dL (0.55-1.02); EST Glomerular Filtration Rate 28 mL/min (>60); Est Glom Filt Rate - Afr Amer 33 mL/min (>60); Estimated Creatinine Clearance 36.86 ml/min; Glucose 140 mg/dL (74-106); Sodium Level 138 mmol/L (136-145)
[2019-07-04] MEDS: Furosemide 40 MG/4 ML Vial IV (12:18)
[2019-07-04] MEDS: Nitroglycerin Oint 1 INCH PACKET TRANSDERM. (12:18)
--- NOTE | 2019-07-04 13:30 | CM.ED ---
SOCIAL WORK INFORMANT: NURSE REASON FOR REFERRAL: SUPPORT UPDATED BY NURSE, PATIENT WORRIED ABOUT BEING TRANSFERRED D/T NOT HAVING ELECTRIC WHEELCHAIR. MET WITH PATIENT IN ROOM. INTRODUCED ROLE AND REASON FOR REFERRAL. DISCUSSED POSSIBLE TRANSFER AND DME. EDUCATION AND EMOTIONAL SUPPORT PROVIDED. PATIENT DENIES ANY FURTHER NEEDS AT THIS TIME. THIS WORKER TO REMAIN AVAILABLE. UPDATED NURSING. TALI LINDSEY, [employer], PRODUCTION SUPPLY EQUIPMENT TENDER.
[2019-07-04 14:26] LABS: Bedside Glucose 53 mg/dL (70-110)
[2019-07-04 16:25] LABS: International Normalized Ratio 2.3; Prothrombin Time (Protime)PT. 25.5 SECONDS (11.7-14.9)
[2019-07-04 18:00] LABS: Bedside Glucose 111 mg/dL (70-110)
--- NOTE | 2019-07-04 18:05 | ED.RN ---
REPORT TO [facility]. PT SKIN P/W/D, RESP EVEN AND UNLABORED, PT A&O X 3, NO DISTRESS NOTED. PT OUT OF ED WITH [facility] FOR TRANSPORT TO [facility].
== END 2019-07-04 18:18 | disposition short-term general hospital (02) ==
PROVIDERS: Emergency Provider Emergency Medicine; Family Provider Internal Medicine; PCP Internal Medicine
DX: I25.119 Atherosclerotic heart disease of native coronary artery with unspecified angina pectoris (principal); I13.0 Hypertensive heart and chronic kidney disease with heart failure and stage 1 through stage 4 chronic kidney disease, or unspecified chronic kidney disease; I50.9 Heart failure, unspecified; E11.22 Type 2 diabetes mellitus with diabetic chronic kidney disease; N18.9 Chronic kidney disease, unspecified; I48.20 Chronic atrial fibrillation, unspecified; J44.9 Chronic obstructive pulmonary disease, unspecified; E78.5 Hyperlipidemia, unspecified; E03.9 Hypothyroidism, unspecified; I25.5 Ischemic cardiomyopathy; E66.01 Morbid (severe) obesity due to excess calories; Z90.49 Acquired absence of other specified parts of digestive tract; I25.2 Old myocardial infarction; Z79.01 Long term (current) use of anticoagulants; Z79.82 Long term (current) use of aspirin; Z79.4 Long term (current) use of insulin; Z79.899 Other long term (current) drug therapy; Z86.718 Personal history of other venous thrombosis and embolism; Z86.73 Personal history of transient ischemic attack (TIA), and cerebral infarction without residual deficits; Z88.0 Allergy status to penicillin; Z88.8 Allergy status to other drugs, medicaments and biological substances; Z91.040 Latex allergy status; Z90.710 Acquired absence of both cervix and uterus; Z89.611 Acquired absence of right leg above knee; Z95.810 Presence of automatic (implantable) cardiac defibrillator; Z87.891 Personal history of nicotine dependence
CPT/HCPCS: 71045; 80048; 82962; 84484; 85025; 85610; 93005; 96374; 96375; 99285; A4216; J1940

== ENCOUNTER → 2019-08-11 15:50 | Outpatient (CLI) | payer MEDICARE, SELFPAY ==
[2019-07-04 09:48] VITALS: BMI 35.6
[2019-08-11 16:19] LABS: International Normalized Ratio 3.2; Prothrombin Time (Protime)PT. 33.2 SECONDS (11.7-14.9)
== END ==
PROVIDERS: Family Provider Internal Medicine; PCP Internal Medicine; Referring Provider Internal Medicine; Visit Provider Internal Medicine
DX: I48.20 Chronic atrial fibrillation, unspecified (principal); Z79.01 Long term (current) use of anticoagulants
CPT/HCPCS: 85610

== ENCOUNTER → 2019-08-26 15:22 | Outpatient (CLI) | payer MEDICARE, SELFPAY ==
[2019-07-04 09:48] VITALS: BMI 35.6
[2019-08-26 16:15] LABS: Prothrombin Time (Protime)PT. 22.8 SECONDS (11.7-14.9)
== END ==
PROVIDERS: Family Provider Internal Medicine; PCP Internal Medicine; Referring Provider Internal Medicine; Visit Provider Internal Medicine
DX: Z79.01 Long term (current) use of anticoagulants (principal)
CPT/HCPCS: 85610

== ENCOUNTER 2019-11-04 17:44 | Emergency (ER) | payer MEDICARE, MEDICAID, SELFPAY ==
[2019-07-04 09:48] VITALS: BMI 35.6
[2019-11-04 17:45] VITALS: BP 125/79; PULSE 77; RESP 17; TEMP 36.3; O2SAT 94; BMI 40.9
--- NOTE | 2019-11-04 18:25 | RAD_ITS ---
STUDY: X-RAY CHEST REASON FOR EXAM: Female, 59 years old. PT WITH LEFT LOWER LEG SWELLING THIS EVENING TECHNIQUE: Frontal and lateral views of the chest were performed COMPARISON: For July 2019 FINDINGS: Inspiratory volumes are low. Lateral view is extremely limited. There is moderate to severe cardiomegaly. Pacemaker is present in the left upper chest with leads stability in the right atrium, right ventricle and coronary vein. There is moderate left and small right pleural effusions. There is basilar atelectasis. Left lower lung is obscured by cardiac shadow. Mid and upper lung zones are clear. There is no pneumothorax. Osseous structures are intact. Appearance is comparable to prior with worsened aeration of the left lower lung. RAD/Chest PA and Lateral IMPRESSION: 1. Cardiomegaly. 2. Moderate left, small right pleural effusions. 3. Bilateral basilar atelectasis. 4. Suboptimally evaluated left lower lung due to cardiac shadow obscuration. Electronically Signed: Prabhu Newell, at 18:43 EST Tel , Service support ,
[2019-11-04 18:27] LABS: Absolute Lymphocyte Count 1.03 X10^3/uL (0.83-4.51); Absolute Neutrophil Count 2.2 X10^3/uL (2.0-7.7); Basophil# 0.02 X10^3/uL; Basophil% 0.5 % (0-1); Eosinophil# 0.19 X10^3/uL; Hematocrit 34.1 % (37-47); Hemoglobin 9.9 g/dL (12.0-15.0); Lymphocyte # 1.03 X10^3/ul (4.0); Mean Corpuscular Hgb 25.2 pg (27.0-32.0); Mean Corpuscular Volume 86.8 fL (81-99); Mean Platelet Vol. 10.8 fl (6.2-12.0); Monocyte# 0.34 X10^3/uL; Monocyte% 8.9 % (0-10); NRBC Flagged by Analyzer 0 % (0-5); Neutrophil # 2.22 X10^3/uL (2.7-7.7); Neutrophil % 58.3 % (47-70); Platelet Count 137 K/mm3 (150-450); RBC Distribution Width CV 19.6 % (11.6-14.6); RBC Distribution Width SD 62.2 fl (35.1-43.9); Red Blood Count 3.93 M/mm3 (4.2-5.4); White Blood Count 3.8 K/mm3 (4.4-11.0)
[2019-11-04 18:34] LABS: Prothrombin Time (Protime)PT. 22.8 SECONDS (11.7-14.9)
[2019-11-04 18:46] LABS: Anion Gap 4 (5-15); BUN 49 mg/dL (7-18); BUN/Creat Ratio 26.3 RATIO (10-20); Calcium,Total 9.2 mg/dL (8.5-10.1); Chloride 103 mmol/L (98-107); Creatinine, Serum 1.86 mg/dL (0.55-1.02); EST Glomerular Filtration Rate 30 mL/min (>60); Est Glom Filt Rate - Afr Amer 36 mL/min (>60); Estimated Creatinine Clearance 39.24 ml/min; Glucose 82 mg/dL (74-106); Potassium 4.4 mmol/L (3.5-5.1); Sodium Level 137 mmol/L (136-145)
--- NOTE | 2019-11-04 18:48 | US_ITS ---
STUDY: VENOUS DOPPLER ULTRASOUND - LEFT LOWER EXTREMITY REASON FOR EXAM: Female, 59 years old. LT LEG SWELLING TODAY TECHNIQUE: Ultrasound evaluation of the deep vein system to include gomez-scale imaging and compression was performed. Gomez-scale imaging and Doppler sonographic evaluation, including duplex spectral analysis and qualitative color flow sonography, was performed. COMPARISON: None. FINDINGS: Common Femoral Vein: Normal compression, spontaneity and augmentation. Normal color Doppler. Common Femoral Vein/Greater Saphenous Junction: Normal compression, spontaneity and augmentation. Normal color Doppler. Femoral Proximal: Normal compression, spontaneity and augmentation. Normal color Doppler. Femoral Middle: Normal compression, spontaneity and augmentation. Normal color Doppler. Femoral Distal: Normal compression, spontaneity and augmentation. Normal color Doppler. Popliteal Vein: Normal compression, spontaneity and augmentation. Normal color Doppler. Posterior Tibial Vein: Normal compression, spontaneity and augmentation. Normal color Doppler. Peroneal Vein: Normal compression, spontaneity and augmentation. Normal color Doppler. US/Venous Duplex Imag/Limited/Uni IMPRESSION: No deep venous thrombosis. Electronically Signed: Prabhu Newell, at 19:31 EST Tel , Service support ,
--- NOTE | 2019-11-04 18:49 | ED.VIS.GEN ---
History of Present Illness Chief Complaint: Edema Informant: Patient Onset: Today Narrative: Patient is a 59-year-old female history of CHF, diabetes mellitus, DVTs and right bhzox-htd-meox amputation presenting with swelling of her left lower extremity. Patient states she noticed that around 3 PM today. She not have any symptoms associated with it. She denies any pain. She denies any shortness of breath, chest pain or difficulty breathing. She notes she does have a Connor filter. She is on Coumadin because of atrial fibrillation and DVT history. Patient states she is been sleeping well. She notes she is chronically fatigued but this is unchanged. She denies any other complaints and wanted to be checked out for her leg swelling because this was new. She denies associated fever or chills. She denies any redness or warmth to the leg. Past Medical History - Allergies and Home Meds Allergies/Adverse Reactions: Allergies codeine Allergy (Verified 11/04/19 17:45) Rash latex Allergy (Verified 11/04/19 17:45) Itching Penicillins Allergy (Verified 11/04/19 17:45) Swelling dexamethasone [From Maxidex] Adverse Reaction (Verified 11/04/19 17:45) Unknown iodine Adverse Reaction (Verified 11/04/19 17:45) Itching morphine Adverse Reaction (Verified 11/04/19 17:45) Other contrast dye Allergy (Uncoded 11/04/19 17:45) GI upset GI upset Primary Care Physician: Leslie Bird MD [Primary Care Provider] - Past Medical History: - - Hypertension, diabetes mellitus, CHF, history of DVT Surgical History: adenoidectomy, cholecystectomy, hysterectomy, tonsillectomy, - - Right [id number] amputation, panniculectomy, pacemaker placement, left leg vein grafting/bypass. Smoking Status: Never smoker - Family History Maternal Family History: Reports: Diabetes, Heart Disease, Hypertension Paternal Family History: Reports: Heart Disease, - - Mesothelioma. Review of Systems General: Reports: - - Chronic fatigue, unchanged. Denies: Chills, Fever, Sweats Eyes: Denies: Visual changes - bilaterally, Diplopia ENT: Denies: Rhinorrhea, Sore throat Cardiovascular: Denies: Chest pain, Palpitations Respiratory: Denies: Dyspnea, Cough, Dyspnea on exertion Gastrointestinal: Denies: Abdominal pain, Nausea, Vomiting, Diarrhea, Melena, Hematochezia Genitourinary: Denies: Dysuria, Hematuria, Frequency Musculoskeletal: Reports: - - Edema of the left lower extremity. Denies: Back pain, Extremity Pain Skin: Denies: Rash, Wounds Neurological: Denies: Headache, Weakness, Numbness Physical Exam Vital Signs/Narrative: Vital Signs Temp Pulse Resp BP Pulse Ox 11/04/19 17:45 97.4 F L 77 17 125/79 H 94 Inital Vital Signs reviewed: Yes General: Well nourished, Well developed, Obese, No Acute Distress Head: Normocephalic, Atraumatic Eyes: Perrl, EOMI ENT: Moist mucous membranes, No rhinorrhea Neck: Supple, Nontender, No lymphadenopathy, No JVD Cardiovascular: Regular rate, Regular rhythm, No murmurs Respiratory: No distress, CTA bilaterally, Chest nontender, Diminished - Right base. Negative for: Wheezing, Decreased Air Movement Abdomen: Soft, Nontender, Nondistended, Normal bowel sounds Back: Nontender, Normal Inspection Extremities: Nontender, Edema - 2+ pitting edema pretibial left lower extremity, - - Right lower leg amputation Skin: Normal color, No rash Neurological: Alert, Oriented x3, Cranial nerves II-XII grossly intact, Normal Strength, Normal Sensation Psychological: Normal affect, Normal Mood Diagnostic/Tx/Re-eval Chest X-Ray - ED: 2 View, Read by ED Physician, Read by Radiologist, Right Effusion Clinical Impression(s) from Imaging Studies Chest X-Ray 11/04/19 18:25 IMPRESSION: 1. Cardiomegaly. 2. Moderate left, small right pleural effusions. 3. Bilateral basilar atelectasis. 4. Suboptimally evaluated left lower lung due to cardiac shadow obscuration. Electronically Signed: Prabhu Newell, at 18:43 EST Tel , Service support , Venous Duplex 11/04/19 18:48 IMPRESSION: No deep venous thrombosis. Electronically Signed: Prabhu Newell, at 19:31 EST Tel , Service support , Laboratory Data 11/04/19 11/04/19 11/04/19 18:20 18:20 18:20 WBC 3.8 L RBC 3.93 L Hgb 9.9 L Hct 34.1 L MCV 86.8 MCH 25.2 L MCHC 29.0 L RDW Std Deviation 62.2 H RDW Coeff of Yoandy 19.6 H Plt Count 137 L MPV 10.8 Immature Gran % (Auto) 0.300 Neut % (Auto) 58.3 Lymph % (Auto) 27.0 [place] % (Auto) 8.9 Eos % (Auto) 5.0 Baso % (Auto) 0.5 Absolute Neuts (auto) 2.2 Absolute Lymphs (auto) 1.03 Nucleated RBC % 0 PT 22.8 H INR 2.0 Sodium 137 Potassium 4.4 Chloride 103 Carbon Dioxide 30.0 Anion Gap 4 L BUN 49 H Creatinine 1.86 H Estim Creat Clear Calc 39.24 Est GFR (MDRD) Af Amer 36 L Est GFR (MDRD) Non-Af 30 L BUN/Creatinine Ratio 26.3 H Glucose 82 Calcium 9.2 Troponin I 0.031 B-Natriuretic Peptide 11/04/19 18:20 WBC RBC Hgb Hct MCV MCH MCHC RDW Std Deviation RDW Coeff of Yoandy Plt Count MPV Immature Gran % (Auto) Neut % (Auto) Lymph % (Auto) [place] % (Auto) Eos % (Auto) Baso % (Auto) Absolute Neuts (auto) Absolute Lymphs (auto) Nucleated RBC % PT INR Sodium Potassium Chloride Carbon Dioxide Anion Gap BUN Creatinine Estim Creat Clear Calc Est GFR (MDRD) Af Amer Est GFR (MDRD) Non-Af BUN/Creatinine Ratio Glucose Calcium Troponin I B-Natriuretic Peptide 417.4 H - Medical Decision Making Patient is evaluated for swelling of her left lower extremity. She is noticed it today around 3 PM. She denies any associated shortness of breath, chest pain or other systemic symptoms. She notes she always feels fatigued but this is unchanged. Patient does have some edema. DVT scan is negative. Patient is also therapeutically anticoagulated on Coumadin. Patient does have a small pleural effusion on her right base which is appreciated on physical exam as well. Her proBNP is mildly elevated but this is probably is her baseline. Likely patient does have a component fluid overload which is causing her edema. As patient is otherwise asymptomatic and does not ambulate at baseline because of her right leg amputation and has normal vital signs I think she is a good candidate for outpatient follow-up. She is instructed to double up on her Lasix and follow-up with her PCP. I did discuss with on-call PCP who will relay this message to her primary care physician. Patient is counseled on signs symptoms require return the emergency room. She verbalizes agreement understand this plan. She discharged home in stable condition. ED Disposition - Plan for ED Patient: Disposition: Home or Assisted Living Diagnosis: Edema, Pleural effusion, right Instructions: Pleural Effusion, ED Peripheral Edema, Unilateral Referrals: Leslie Bird MD [Primary Care Provider] - Additional Instructions: You likely have a little bit of extra fluid that is causing the swelling of your leg. You do have a small amount of fluid on your right leg as well. Double the dose of your Lasix for the next 3 days. Call your primary care doctor to be seen by the end of the week for reevaluation. Return to emergency room if you develop worsening symptoms such as shortness of breath, chest pain or worsening swelling. Limit your salt intake.
[2019-11-04 18:56] LABS: BNP,B-Type NATRIURETIC PEPTIDE 417.4 pg/mL (0-100)
[2019-11-04 21:32] VITALS: BP 136/81; PULSE 78; RESP 16
[2019-11-04 21:43] VITALS: BP 136/81; PULSE 78; RESP 16
== END 2019-11-04 22:55 | disposition home or self-care (01) ==
PROVIDERS: Emergency Provider Emergency Medicine; PCP Internal Medicine
DX: R60.0 Localized edema (principal); J90 Pleural effusion, not elsewhere classified; E87.70 Fluid overload, unspecified; E11.9 Type 2 diabetes mellitus without complications; I11.0 Hypertensive heart disease with heart failure; I50.9 Heart failure, unspecified; I48.91 Unspecified atrial fibrillation; E66.9 Obesity, unspecified; Z79.01 Long term (current) use of anticoagulants; Z86.718 Personal history of other venous thrombosis and embolism; Z91.040 Latex allergy status; Z88.0 Allergy status to penicillin; Z88.8 Allergy status to other drugs, medicaments and biological substances; Z90.710 Acquired absence of both cervix and uterus; Z90.49 Acquired absence of other specified parts of digestive tract; Z89.611 Acquired absence of right leg above knee; Z95.0 Presence of cardiac pacemaker
CPT/HCPCS: 71046; 80048; 83880; 84484; 85025; 85610; 93971; 99284; A4216

== ENCOUNTER 2020-05-12 12:00 | Outpatient (RCR) | payer MEDICARE, MEDICAID, SELFPAY ==
--- NOTE | 2020-04-07 15:56 | HP.PTEVAL ---
Patient's Visit Information JUAN ANTONIO MADDEN is a 59 year old F referred to Physical Therapy by Dr. Leslie Bird MD with a diagnosis of L LE pain. Date of Evaluation: 04/07/20 Physical Therapist: Hever Contreras, PT, ATC - Visit Plan Frequency: 2-3x /Week Duration: 4-6 Weeks Plan: L LE strengthening, sit to stand transfers, sit to mat table transfers, and HEP - Subjective Pt reports she has had L LE weakness for some time. Pt reports she had her R LE AKA in 2011 secondary to R LE PVD. Pt reports since having that amputation, she has become debilitated. Pt notes she now has difficulty with sit to stand and pivoting transfers. Pt reports this gives her a lot of difficulty when she is trying to use the bathroom. Pt reports she can feel pressure in her L LE, but notes she cant feel most things with L LR. Pt reports her major goal is to be able to transfer with greater ease. 0/10 L LE pain at this time. Pt has been using an electric WC since 2013 - Objective Neuro: L LE is WNL to light touch. ROM: L LE is WFL. MMT: L LE is grossly 3/5 throughout this date. Transfers: Pt is unable to perform sit to stand transfers I at this time. Pt is also unable to perform chair to mat table transfers I this date - Goals Goal 1:: Increase L LE strength x 1 grade to aid with transfers Goal Time Frame: 4-6 Weeks Goal 2:: Pt will be able to perform sit to mat table with SBAx1 to aid with I at home Goal Time Frame: 4-6 Weeks Goal 3:: I with HEP Goal Time Frame: 4-6 Weeks - Rehabilitation Potential Physical Therapy Diagnosis: Pt has L LE weakness and difficulty with transfers secondary to debiliation from R AKA Rehabilitation Potential: Good - Anticipated Interventions Patient/Client Instruction: Educate patient on: Condition, Plan of Care For the Purpose of:: To improve self management Therapeutic Exercise to Include: Strength training, Endurance training, Balance training, Body mechanics, Dynamic Lumbar Stabilization For the Purpose of:: To improve muscle performance and motor function, To improve ability to perform ADL's, To improve self management Thank you for the opportunity to evaluate your patient. For Medicare and Medicare HMO plans, please review the plan of care and approve it. It will need to be FAXED BACK to us at [phone] for Medicare purposes. For Medicare only, by signing this I certify the plan of care. Please let me know if there are questions or concerns regarding this plan of care. Physician Signature: Date:
--- NOTE | 2020-07-02 09:51 | HP.PT.NRP ---
JUAN ANTONIO MADDEN was seen in my office for initial evaluation on 04/07/20. The following Plan of Care was established for this patient: Initial Frequency: 2-3x /Week Initial Duration: 4-6 Weeks Patient/Client Instruction: Educate patient on: Condition, Plan of Care For the Purpose of:: To improve self management Therapeutic Exercise to Include: Strength training, Endurance training, Balance training, Body mechanics, Dynamic Lumbar Stabilization For the Purpose of:: To improve muscle performance and motor function, To improve ability to perform ADL's, To improve self management This patient was last seen in our office . Pertinent comments regarding their Physical therapy will appear below: Pt was treated for 10 PT visits for L LE pain through the date of 05/12/20. Pt has not returned through todays date and is discontinued at this time. At this point I will be discontinuing this patient from physical therapy. I would be happy to see this patient again in the future if found appropriate by the physician. Thank you! Hever Contreras, PT, ATC
== END 2020-05-12 19:00 | disposition home or self-care (01) ==
LOC: PT 12:00
PROVIDERS: PCP Internal Medicine; Referring Provider Internal Medicine; Visit Provider Internal Medicine
DX: M79.605 Pain in left leg (principal); I73.9 Peripheral vascular disease, unspecified; G60.9 Hereditary and idiopathic neuropathy, unspecified
CPT/HCPCS: 97110; 97161

== ENCOUNTER 2020-07-07 14:26 | Observation (INO) | payer MEDICARE, MEDICAID, SELFPAY ==
[2020-07-07] VITALS (10 sets, daily range): BP systolic 116–146; BP diastolic 64–75; PULSE 72–80; RESP 14–17; TEMP 36.6–36.7; O2SAT 93–99; BMI 44.1
--- NOTE | 2020-07-07 14:41 | EKG12_ITS ---
Test Reason : Blood Pressure : / mmHG Vent. Rate : 075 BPM Atrial Rate : 074 BPM P-R Int : 000 ms QRS Dur : 158 ms QT Int : 522 ms P-R-T Axes : 000 264 040 degrees QTc Int : 582 ms Suspect unspecified pacemaker failure Ventricular-paced rhythm Abnormal ECG Confirmed by JAN LOPEZ, NICKY ([id number]), television news video editor ARON RAPHAEL ([id number]) on 07/08/2020 10:06:49 AM Referred By: Confirmed By:NICKY MONTOYA MD
--- NOTE | 2020-07-07 14:42 | VDLE_ITS ---
Reason For Study: pain Procedure LEFT This is a venous duplex using B-mode, color GSV is normal. flow and spectral Doppler. POP V is compressible, spontaneous, phasic, Exam performed portable in ED. competent and demonstrates normal The exam was abbreviated due to the COVID 19 augmentation. protocol. T/P Trunk is compressible. The exam was of fair technical quality due PTV is compressible. to pt body habitus and pain. LT PerV is compressible. A preliminary report was called and/or faxed Unable to image CFV due to pt body habitus. to Dr. Aguilera. Prox FV is compressible. Pt refused compression of mid and distal FV due to pain. Normal colow flow noted. Interpretation Summary Deep veins of the left lower extremity are patent and compressible segmentally. There is no evidence of left lower extremity deep vein thrombosis. The left common femoral vein was not visualized due to the patient's body habitus. The left mid- and distal femoral vein were not fully assessed due to the patient's pain intolerance. The left great saphenous vein appears patent and compressible segmentally. Ordering Physician: Whitley Aguilera Performed By: [place] RVT
--- NOTE | 2020-07-07 14:46 | ED.DCSUM_ITS ---
- ER Visit Summary Date of Service: 07/07/20 Chief Complaint: Edema History of Present Illness: The patient is a 60 F presenting with left lower extremity and right stump edema. She states this has been worsening since Sunday. She called her primary care physician and was advised to come to the ED. She complains of mild shortness of breath. She denies chest pain. Denies fever or cough. She also complains of diffuse rash which she believes is secondary to bedbugs. She complains of itching all over. Physical Examination: Vitals are stable. Patient is afebrile. Alert no acute distress. HEENT exam is unremarkable. Neck is supple. Lungs are clear and equal bilaterally. Heart is regular rate and rhythm. Abdomen is soft nontender nondistended. Extremities left lower extremity edema, multiple sores, surrounding edema. Right stump erythema and edema Skin is warm and dry. Diffuse maculopapular rash to trunk and upper extremities. No focal neurologic deficit. Remainder of exam is unremarkable. Emergency Department Course and Treatment: EKG is paced at a rate of 75, similar to previous. CBC shows hemoglobin 9.3, platelet 103. Chemistries show glucose 211, BUN 79, creatinine 2.48, previous creatinine 1.8. INR 2.3. Troponin is negative. BNP 576. Chest x-ray shows bilateral pleural effusions. Nurse did find bedbugs on the patient. Will discuss with hospitalist for admission. Disposition: Admission Impression: MAX, peripheral edema This note was generated with Between dictation software. It may contain incorrect words, spelling, and punctuation that were not noted in review of the chart prior to signing ED Disposition - Plan for ED Patient: Referrals: Leslie Bird MD [Primary Care Provider] -
--- NOTE | 2020-07-07 15:06 | RAD_ITS ---
STUDY: X-RAY CHEST REASON FOR EXAM: Female, 60 years old. Edema TECHNIQUE: Frontal view of the chest COMPARISON: 11/04/19 FINDINGS: There are mild congestive changes noted. The lungs are otherwise clear. There are small bilateral pleural effusions. There is no pneumothorax. The heart is enlarged, but stable in size.. Again noted is a pacemaker. The visualized osseous structures are within normal limits. RAD/Chest 1 View (Portable) IMPRESSION: Cardiomegaly with mild pulmonary vascular congestion and small bilateral pleural effusions. Electronically Signed: Kurt Payton, at 16:00 EDT Tel , Service support ,
[2020-07-07 15:18] LABS: Absolute Lymphocyte Count 0.58 X10^3/uL (0.83-4.51); Absolute Neutrophil Count 3.4 X10^3/uL (2.0-7.7); Basophil# 0.02 X10^3/uL; Basophil% 0.4 % (0-1); Eosinophils% 2.2 % (0-5); Hematocrit 31.7 % (37-47); Hemoglobin 9.3 g/dL (12.0-15.0); Lymphocyte # 0.58 X10^3/ul (4.0); Lymphocyte % 12.8 % (19-41); Mean Corp Hgb Conc 29.3 g/dL (32-36); Mean Corpuscular Hgb 27.4 pg (27.0-32.0); Mean Corpuscular Volume 93.5 fL (81-99); Mean Platelet Vol. 11.7 fl (6.2-12.0); Monocyte# 0.44 X10^3/uL; Monocyte% 9.7 % (0-10); NRBC Flagged by Analyzer 0 % (0-5); Neutrophil # 3.38 X10^3/uL (2.7-7.7); Neutrophil % 74.7 % (47-70); POSITIVE DIFFERENTIAL YES; POSITIVE MORPHOLOGY YES; Platelet Count 103 K/mm3 (150-450); RBC Distribution Width CV 21.8 % (11.6-14.6); RBC Distribution Width SD 74.6 fl (35.1-43.9); Red Blood Count 3.39 M/mm3 (4.2-5.4); White Blood Count 4.5 K/mm3 (4.4-11.0)
[2020-07-07 15:19] LABS: Differential Indicated SCAN CRITERIA MET
--- NOTE | 2020-07-07 15:25 | ED.RN ---
PT ADMITS TO HAVING BEDBUG INFESTATION AT HOME, WE'RE TRYING TO TREAT THEM. BITES NOTED OVER MOST OF PT'S BODY. PT HAS VERY POOR HYGIENE, STATES SHE CANNOT BATHE HERSELF, HAS HOME HEALTH BUT THEY CAN ONLY DO SO MUCH. PT HAS SEVERAL WOUNDS IN VARIOUS STAGES OF HEALING. GROIN IS EXCORIATED AND SEEPING. PT STATES SHE HAD TO CALL EMS YESTERDAY TO HELP HER OFF OF TOILET. PER EMS, HOUSE IS FILTHY. CASE MANAGEMENT NOTIFIED.
[2020-07-07 15:36] LABS: Anion Gap 7 (5-15); BUN 79 mg/dL (7-18); BUN/Creat Ratio 31.9 RATIO (10-20); Calcium,Total 8.3 mg/dL (8.5-10.1); Chloride 104 mmol/L (98-107); Creatinine, Serum 2.48 mg/dL (0.55-1.02); EST Glomerular Filtration Rate 21 mL/min (>60); Est Glom Filt Rate - Afr Amer 26 mL/min (>60); Estimated Creatinine Clearance 29.07 ml/min; Glucose 211 mg/dL (74-106); Potassium 4.2 mmol/L (3.5-5.1); Sodium Level 138 mmol/L (136-145)
[2020-07-07 15:41] LABS: Anisocytosis 1+; Differential Comment SCANNED; International Normalized Ratio 2.3; Prothrombin Time (Protime)PT. 24.6 SECONDS (11.7-14.9)
--- NOTE | 2020-07-07 16:01 | NURSING ---
MED SURG OBS [place] MAX, PERIPHERAL EDEMA
--- NOTE | 2020-07-07 16:13 | NURSING ---
PER DR MILLER, NOW PCU PATIENT
--- NOTE | 2020-07-07 16:21 | HP.PCM_ITS ---
Problem List (1) Heart failure Status: Acute (2) Infestation by bed bug Status: Acute (3) Anemia Status: Chronic (4) Thrombocytopenia Status: Chronic (5) CVA (cerebral vascular accident) Status: Resolved Comment: 2001 (6) Chronic renal insufficiency Status: Chronic (7) COPD (chronic obstructive pulmonary disease) Status: Chronic (8) History of permanent cardiac pacemaker placement Status: Resolved Comment: 09/08/2013,[employer]. Dr. Wilkins [facility] (9) Above knee amputation of right lower extremity Status: Resolved (10) HLD (hyperlipidemia) Status: Chronic (11) Coronary artery disease Status: Chronic (12) Hypothyroidism Status: Chronic (13) Atrial fibrillation Status: Chronic (14) Ischemic cardiomyopathy Status: Chronic (15) Diabetes mellitus Status: Chronic Comment: type II (16) Morbid obesity Status: Chronic (17) History of DVT of lower extremity Status: Chronic (18) Tobacco abuse Status: Chronic History of Present Illness Date of Admission: 07/07/20 Chief Complaint: LE edema The patient is a 60 year old F with an extensive medical hx including ischemic CM, CAD with prior stent, afib, pacemaker placement, DVT, CKD, DMt2 with morbid obesity, COPD/Asthma, right above knee amputation who presented to the ER with c/o LE edema (left). She has a right AKA however the left leg is intact, but edematous above and below the knee. She also has SOB but no hypoxia or cough. She came to the ER and was found to have edema on CXR, elevated BNP, and abnormal renal function. She denies chest pain and has negative troponin, paced EKG rhythm. She also has multiple wounds on her body that do not appear to be well taken care of. She has a left leg wound, right stump open wound, pressure ulcer on her buttocks, what appears to hvae a yeast infection in her abdominal pannus, and bed bug bites all over. She does not appear to have cellulitic changes and has no fever or chills. [] Past Medical History Past Medical History (Chronic Problems): Chronic Problems (Last Updated 03/27/19 @ 10:15 by Susana Govea) Anemia (Chronic) Thrombocytopenia (Chronic) Asthma (Chronic) Chronic renal insufficiency (Chronic) COPD (chronic obstructive pulmonary disease) (Chronic) HLD (hyperlipidemia) (Chronic) Coronary artery disease (Chronic) Hypothyroidism (Chronic) Atrial fibrillation (Chronic) Ischemic cardiomyopathy (Chronic) Diabetes mellitus (Chronic) type II Morbid obesity (Chronic) History of DVT of lower extremity (Chronic) Tobacco abuse (Chronic) Medical History: Medical History (Last Updated 03/27/19 @ 10:15 by Susana Govea) Asthma (Chronic) J45.909 CVA (cerebral vascular accident) (Resolved) I63.9 2002 Chronic renal insufficiency (Chronic) N18.9 COPD (chronic obstructive pulmonary disease) (Chronic) J44.9 Above knee amputation of right lower extremity (Resolved) Z89.611 HLD (hyperlipidemia) (Chronic) E78.5 Coronary artery disease (Chronic) I25.10 Hypothyroidism (Chronic) E03.9 Atrial fibrillation (Chronic) I48.91 Ischemic cardiomyopathy (Chronic) I25.5 Diabetes mellitus (Chronic) E11.9 type II Morbid obesity (Chronic) E66.01 Allergies codeine Allergy (Verified 07/07/20 14:29) Rash latex Allergy (Verified 07/07/20 14:29) Itching Penicillins Allergy (Verified 07/07/20 14:29) Swelling dexamethasone [From Maxidex] Adverse Reaction (Verified 07/07/20 14:29) Unknown iodine Adverse Reaction (Verified 07/07/20 14:29) Itching morphine Adverse Reaction (Verified 07/07/20 14:29) Other contrast dye Allergy (Uncoded 07/07/20 14:29) GI upset GI upset Home Medications: Ambulatory Orders Medication Instructions Recorded Lorazepam 0.5 mg PO TID PRN PRN 07/02/13 Albuterol IH (ProAir) [Proair Hfa] 2 puff INHALATION Q4H PRN PRN 07/19/13 Nitroglycerin [Nitrostat] 0.4 mg SL PRN PRN 07/19/13 Warfarin [Coumadin] 5 mg PO QODAY 07/19/13 Atorvastatin Calcium [Lipitor] 40 mg PO QHS 06/02/15 Esomeprazole Mag Trihydrate 40 mg PO DAILY 06/02/15 [Nexium] Gabapentin [Neurontin] 600 mg PO TID 06/02/15 Insulin U-500 [Humulin R U-500 15 unit SC TIDCM 03/08/16 ([facility])] buPROPion SR [Wellbutrin SR (150mg 450 mg PO DAILY 03/08/16 tablets)] Carvedilol [Coreg (Beta Yamilka)] 25 mg PO DAILY 07/07/17 Aspirin [Aspirin, Baby] 81 mg PO DAILY@0800 08/15/17 Furosemide 80 mg PO BREAKFAST 03/06/19 traMADol [Ultram] 50 mg PO 4X/DAY 03/08/19 Isosorbide Mononitrate [Imdur] 30 mg PO DAILY #30 tablet 03/10/19 Ondansetron [Zofran Odt] 4 mg PO Q8H PRN PRN #10 tab 03/22/19 Allopurinol 300 mg PO DAILY 11/04/19 Insulin Glargine,Hum.rec.anlog 45 unit SQ QHS 11/04/19 [Lantus] Furosemide [Lasix] 40 mg PO QHS 07/07/20 Hydralazine HCl 25 mg PO TID 07/07/20 Warfarin [Coumadin (PBKC)] 2.5 mg PO QODAY 07/07/20 Surgical History: Surgical History (Last Updated 03/27/19 @ 10:16 by Susana Govea) History of PTCA (Resolved) Z98.61 Mid LAD bare metal stent 07/20/2002. RCA Bare metal stent 07/02/2006 History of permanent cardiac pacemaker placement (Resolved) Z95.0 09/08/2013,[employer]. Dr. Wilkins [facility] History of tonsillectomy (Resolved) Z90.89 H/O: hysterectomy (Resolved) Z90.710 History of cholecystectomy (Resolved) Z90.49 H/O adenoidectomy (Resolved) Z90.89 Surgical History: adenoidectomy, cholecystectomy, hysterectomy, tonsillectomy, - - Right fctue-lmg-nbct amputation, panniculectomy, pacemaker placement, left leg vein grafting/bypass. Psychiatric History: Anxiety, Depression [employer]OR [employer]UCATION History: No pertinent [employer] history Lives: Roommate Smoking Status: Never smoker Tobacco Use: Non-smoker Alcohol: None Drugs: None - *Family History Maternal History Items: Diabetes, Heart Disease, Hypertension Paternal History Items: Heart Disease, - - Mesothelioma. Review of Systems Constitutional: Denies: Chills, Fever, Weight Change HEENT: Denies: Head Aches, Sinus Congestion, Sinus Drainage Cardiovascular: Denies: Chest Pain, Palpitations Respiratory: Denies: Cough, Shortness of breath at rest, Sputum production Gastrointestinal: Denies: Abdominal Pain, Nausea, Vomiting Genitourinary: Denies: Dysuria Musculoskeletal: Denies: Joint Pain, Joint Tenderness Skin: Denies: Rash, Wounds Neurological: Denies: Numbness, Tingling, Focal weakness Psychiatric: Denies: Anxiety, Depression, Homicidal Ideations, Suicidal Ideations Hematologic/ Lymphatic: Denies: Easy Bruising, Easy Bleeding VTE Information - Inpt Only VTE Present on Admission: No VTE Mechan Device Prophylaxis: None VTE Pharm Prophylaxis ordered?: Yes Patient Problems: Active and Suspected Problems (Last Updated 03/27/19 @ 10:15 by Susana Govea) Heart failure (Acute) Infestation by bed bug (Acute) - Physical Exam Vitals/I&O's: Vital Signs Temp Pulse Resp BP Pulse Ox 97.8 F 76 15 116/75 97 07/07/20 15:57 07/07/20 15:57 07/07/20 15:57 07/07/20 15:57 07/07/20 15:57 Oxygen Delivery Method Room Air Weight: 334 lb 7.06 oz Body Mass Index (BMI) 44.1 Finger Stick Blood Glucose 77 General: Alert, Oriented x3, Cooperative HEENT: Atraumatic, PERRLA, EOMI, Normocephalic Neck: Supple, No JVD, Negative Carotid Bruits Lungs: Diminished, Wheezes Cardiovascular: Regular rate, No murmurs Abdomen: Bowel Sounds Present, Soft, Non Tender Extremities: No edema, Capillary Refill Less than 3 Seconds, Edema - 2+ pitting edema LLE, above and below knee Skin: No rashes, No breakdown, - - diffuse small annular erythematous lesions scatterered throughout. pannus with erythema, satellite lesions, c/w candidiasis Musculoskeletal: No Tenderness to Palpation of Joints or Extremities, - - Right AKA. Neurological: Cranial nerves II-XII grossly intact Psych/Mental Status: Flat Affect, Alert and oriented to time, place, person, mood and affect Laboratory Results 07/07/20 14:52: WBC 4.5, RBC 3.39 L, Hgb 9.3 L, Hct 31.7 L, MCV 93.5, MCH 27.4, MCHC 29.3 L, RDW Std Deviation 74.6 H, RDW Coeff of Yoandy 21.8 H, Plt Count 103 L, MPV 11.7, Immature Gran % (Auto) 0.200, Neut % (Auto) 74.7 H, Lymph % (Auto) 12.8 L, [place] % (Auto) 9.7, Eos % (Auto) 2.2, Baso % (Auto) 0.4, Absolute Neuts (auto) 3.4, Absolute Lymphs (auto) 0.58 L, Nucleated RBC % 0, Differential Comment SCANNED, Anisocytosis 1+ 07/07/20 14:52: PT 24.6 H, INR 2.3 07/07/20 14:52: Sodium 138, Potassium 4.2, Chloride 104, Carbon Dioxide 27.0, Anion Gap 7, BUN 79 H, Creatinine 2.48 H, Estim Creat Clear Calc 29.07, Est GFR (MDRD) Af Amer 26 L, Est GFR (MDRD) Non-Af 21 L, BUN/Creatinine Ratio 31.9 H, Glucose 211 H, Calcium 8.3 L, Troponin I < 0.015 07/07/20 14:52: B-Natriuretic Peptide 576.0 H Assessment/Plan All Active Problems (Last Updated 03/27/19 @ 10:16 by Susana Govea) Heart failure (Acute) Infestation by bed bug (Acute) CVA (cerebral vascular accident) (Resolved) History of PTCA (Resolved) History of permanent cardiac pacemaker placement (Resolved) Above knee amputation of right lower extremity (Resolved) History of tonsillectomy (Resolved) H/O: hysterectomy (Resolved) History of cholecystectomy (Resolved) H/O adenoidectomy (Resolved) 1. Acute heart failure - hx ischemic CM however no recent echo. CXR c.w CHF, mild SOB, LLE pitting edema, BNP elevated. No hypoxia. Initiate IV lasix and obtain echo in the AM. Follow renal function has some elevated BUN and Creatinine however her baseline is unclear. We will need to obtain records from [facility]. 2. hx Afib - has pacer, rhythm on EKG is paced, INR 2.3 Continue Warfarin. Rate is well controlled. 3. Hx CAD, Ichemic CM - prior stent. EKG paced. Trop negative. continue aspirin/statin/imdur/hydralazine/coreg 4. DMt2 with prior AKA, morbid obesity - continue home insulin regimen + SSI, obtain A1C, provide naval architect specialist eval. 5. Hx COPD - no exacerbation at this time. Continue prn aerosols, incentive spirometer 6. anemia / thrombocytopenia - trend. unclear baseline. obtain records from PCP 7. Hx CVA - aspirin/statin 8. Hx DVT - inr therapaeutic. 9. Multiple wounds, bed bug infestation, candidiasis - wound care will be provided. she states she sees wound care at [facility]. She appears to have significant evidence of self neglect. 10. Depression - wellbutrin, lorazepam DVT ppx: warfarin DC planning: PTOT evals, pt is not properly caring for herself at home. This patient was seen by Arya Weaver PA-C under the supervision of Doctor Mckeon.
--- NOTE | 2020-07-07 17:34 | ECHOD_ITS ---
Reason For Study: CHF Procedure This was a 2D Doppler, Color Flow transthoracic echocardiogram. Exam performed portable in patient room. Left Ventricle Normal LV size. The estimated ejection fraction is 25-30 %. Unable to assess diastolic dysfunction. There is moderate to severe global hypokinesis of the left ventricle. Right Ventricle Moderately dilated right ventricle. Moderate global right ventricular systolic dysfunction. Atria The left atrium is severely enlarged. The right atrium is severely enlarged. No doppler evidence for ASD. Mitral Valve Rheumatic appearing mitral valve with moderate to severe mitral stenosis. The degree of stenosis may be underestimated. Recommend a limited echo to evalute the mitral valve further. Mild (1+) mitral valve insufficiency. Tricuspid Valve There is no tricuspid stenosis. Moderate (2+) tricuspid valve insufficiency. Pulmonary artery systolic pressure is 55-60 mmHg. Aortic Valve Aortic sclerosis, no stenosis. No aortic valve insufficiency. Pulmonic Valve There is no pulmonic valvular stenosis. Trivial pulmonic valve insufficiency. Great Vessels Normal aortic root. The inferior vena cava is dilated. Pericardium/Pleural No pericardial effusion. MMode/2D Measurements & Calculations LVIDd: 5.7 cm IVSd: 1.4 cm Ao root diam: 3.0 cm LVIDs: 4.7 cm LVPWd: 1.2 cm LA dimension: 4.9 cm RVDd: 5.1 cm FS: 18.3 % LAV(MOD-sp4): 111.8 ml LA A4 area: 30.0 cm2 RA A4 area: 34.0 cm2 Doppler Measurements & Calculations MV E max bala: 135.9 cm/sec Lat Peak E' Bala: 2.8 cm/sec Med Peak E' Bala: 5.2 cm/sec MV A max bala: 89.3 cm/sec E/E' lat: 47.8 E/E' med: 26.2 MV E/A: 1.5 PA V2 max: 94.4 cm/sec TR max bala: 312.6 cm/sec PI dec slope: 237.0 cm/sec2 TR max P.1 mmHg Interpretation Summary The estimated ejection fraction is 25-30 %. Unable to assess diastolic dysfunction. Moderately dilated right ventricle. Moderate global right ventricular systolic dysfunction. There is moderate to severe global hypokinesis of the left ventricle. The left atrium is severely enlarged. The right atrium is severely enlarged. Rheumatic appearing mitral valve with moderate to severe mitral stenosis. The degree of stenosis may be underestimated. Recommend a limited echo to evalute the mitral valve further. Mild (1+) mitral valve insufficiency. Pulmonary artery systolic pressure is 55-60 mmHg. The inferior vena cava is dilated Ordering Physician: Bobby Mckeon Referring Physician: Leslie Bird M.D. Performed By: Aiden Soto RCS
[2020-07-07] MEDS: hydrALAZINE 25 MG Tablet PO (21:59)
[2020-07-07] MEDS: Atorvastatin Calcium 40 MG Tablet PO (21:59)
[2020-07-07] MEDS: Gabapentin 600 MG Tablet PO (21:59)
[2020-07-07] MEDS: Carvedilol 25 MG Tablet PO (21:59)
[2020-07-07] MEDS: Furosemide 40 MG/4 ML Vial IV (21:59)
[2020-07-07] MEDS: Insulin Lispro 100 UNIT/ML INSULN.PEN SC (22:00)
[2020-07-07] MEDS: Nystatin Powder 15gm Bottle 1 APPLIC TOPICAL (22:01)
[2020-07-07 22:20] LABS: Bedside Glucose 248 mg/dL (70-110)
[2020-07-08] VITALS (12 sets, daily range): BP systolic 109–134; BP diastolic 61–69; PULSE 75–80; RESP 14–18; TEMP 36.5–36.9; O2SAT 93–96
[2020-07-08] MEDS: hydrALAZINE 25 MG Tablet PO ×3 (06:27→22:15)
[2020-07-08] MEDS: Gabapentin 600 MG Tablet PO ×3 (06:36→22:15)
[2020-07-08] MEDS: Furosemide 40 MG/4 ML Vial IV ×3 (06:36→22:16)
[2020-07-08] MEDS: 0.9% Saline Lock 10 ML Syringe IV ×2 (06:37→22:21)
[2020-07-08] MEDS: Insulin Lispro 100 UNIT/ML INSULN.PEN SC ×4 (06:37→22:16)
[2020-07-08 06:51] LABS: Bedside Glucose 180 mg/dL (70-110)
[2020-07-08 07:01] LABS: International Normalized Ratio 2.3; Prothrombin Time (Protime)PT. 24.9 SECONDS (11.7-14.9)
[2020-07-08 07:22] LABS: Anion Gap 9 (5-15); BUN 78 mg/dL (7-18); Calcium,Total 8.3 mg/dL (8.5-10.1); Chloride 108 mmol/L (98-107); Creatinine, Serum 2.44 mg/dL (0.55-1.02); EST Glomerular Filtration Rate 22 mL/min (>60); Est Glom Filt Rate - Afr Amer 26 mL/min (>60); Estimated Creatinine Clearance 29.55 ml/min; Glucose 166 mg/dL (74-106); Potassium 4.1 mmol/L (3.5-5.1); Sodium Level 142 mmol/L (136-145)
--- NOTE | 2020-07-08 07:45 | PCM.PN.HOSP ---
Patient Problems: Active and Suspected Problems (Last Updated 03/27/19 @ 10:15 by Susana Govea) Heart failure (Acute) Infestation by bed bug (Acute) MAX (acute kidney injury) (Acute) Reason for Visit: CHF Subjective: Patient is a 60-year-old lady with multiple comorbidities admitted with bilateral lower extremity edema. An assessment of acute on chronic diastolic heart failure made admitted to a monitored bed for further management Objective: GENERAL: cooperative HEENT: Atraumatic; EYES; Anicteric, Normal Conjunctiva NECK; supple, normal thyroid, RESPIRATORY: Diminished to auscultation CARDIOVASCULAR: Regular S1 S2, GI: soft, normoactive bowel sounds, : No Renal angle tenderness; EXTREMITIES: Edema and erythema involving the left lower extremity MUSCULOSKELETAL: Right BKA NEURO: Awake; no lateralizing signs. SKIN: stasis dermatitis PSYCH; Flat affect Vitals/I&O's: Vital Signs Temp Pulse Resp BP Pulse Ox 98.4 F 79 14 121/63 H 93 07/08/20 03:45 07/08/20 07:01 07/08/20 03:45 07/08/20 06:27 07/08/20 03:45 Oxygen Delivery Method Room Air Weight: 151.7 kg Body Mass Index (BMI) 44.1 Finger Stick Blood Glucose 77 Intake and Output for Last 24 Hours 07/06/20 07/07/20 07/08/20 23:59 23:59 23:59 Intake Total 120 / 120 Output Total 750 / 750 500 / 500 Balance -630 / -630 -500 / -500 Laboratory Results 07/07/20 14:52: WBC 4.5, RBC 3.39 L, Hgb 9.3 L, Hct 31.7 L, MCV 93.5, MCH 27.4, MCHC 29.3 L, RDW Std Deviation 74.6 H, RDW Coeff of Yoandy 21.8 H, Plt Count 103 L, MPV 11.7, Immature Gran % (Auto) 0.200, Neut % (Auto) 74.7 H, Lymph % (Auto) 12.8 L, [place] % (Auto) 9.7, Eos % (Auto) 2.2, Baso % (Auto) 0.4, Absolute Neuts (auto) 3.4, Absolute Lymphs (auto) 0.58 L, Nucleated RBC % 0, Differential Comment SCANNED, Anisocytosis 1+ 07/07/20 14:52: PT 24.6 H, INR 2.3 07/07/20 14:52: Sodium 138, Potassium 4.2, Chloride 104, Carbon Dioxide 27.0, Anion Gap 7, BUN 79 H, Creatinine 2.48 H, Estim Creat Clear Calc 29.07, Est GFR (MDRD) Af Amer 26 L, Est GFR (MDRD) Non-Af 21 L, BUN/Creatinine Ratio 31.9 H, Glucose 211 H, Calcium 8.3 L, Troponin I < 0.015 07/07/20 14:52: B-Natriuretic Peptide 576.0 H 07/07/20 21:49: POC Glucose 248 H 07/08/20 06:33: POC Glucose 180 H 07/08/20 06:42: PT 24.9 H, INR 2.3 07/08/20 06:42: Sodium 142, Potassium 4.1, Chloride 108 H, Carbon Dioxide 25.0, Anion Gap 9, BUN 78 H, Creatinine 2.44 H, Estim Creat Clear Calc 29.55, Est GFR (MDRD) Af Amer 26 L, Est GFR (MDRD) Non-Af 22 L, BUN/Creatinine Ratio 32.0 H, Glucose 166 H, Calcium 8.3 L Current Medications Acetaminophen (Tylenol) 650 mg PO Q6H PRN PRN PRN Reason: Pain Score 1-10/Temp > 100.7 F Albuterol Sulfate (Ventolin Aerosols) 2.5 mg INHALATION Q2H PRN PRN PRN Reason: SOB/Wheezing Aspirin (Aspirin, Baby) 81 mg PO DAILY@0800 [facility] Atorvastatin Calcium (Lipitor) 40 mg PO QHS [facility] Last Admin: 07/07/20 21:59 Dose: 40 mg Documented by: Bupropion HCl (Wellbutrin Sr (150mg Tablets)) 150 mg PO BID [facility] Carvedilol (Coreg) 25 mg PO BID [facility] Last Admin: 07/07/20 21:59 Dose: 25 mg Documented by: Furosemide (Lasix) 40 mg IV Q8 [facility] Last Admin: 07/08/20 06:36 Dose: 40 mg Documented by: Gabapentin (Neurontin) 600 mg PO TID [facility] Last Admin: 07/08/20 06:36 Dose: 600 mg Documented by: Hydralazine HCl (Apresoline) 25 mg PO TID [facility] Last Admin: 07/08/20 06:27 Dose: 25 mg Documented by: Insulin Glargine (Lantus (Bkc)) 45 units SC QHS [facility] Last Admin: 07/07/20 22:00 Dose: 45 units Documented by: Insulin Human Lispro (Humalog Kwikpen (Bkc)) 0 unit SC ACHS [facility]; Protocol Last Admin: 07/08/20 06:37 Dose: 2 units Documented by: Isosorbide Mononitrate (Imdur) 30 mg PO DAILY [facility] Nystatin (Mycostatin Powder) 1 applic TOPICAL BID [facility]; Protocol Last Admin: 07/07/20 22:01 Dose: 1 applic Documented by: Nystatin/Triamcinolone Acetonide (Mycolog) 1 applic TOPICAL BID [facility]; Protocol Last Admin: 07/07/20 21:50 Dose: Not Given Documented by: Ondansetron HCl (Zofran) 4 mg IV Q8H PRN PRN PRN Reason: NAUSEA/VOMITING Pantoprazole Sodium (Protonix) 40 mg PO DAILY [facility] Potassium Chloride (K-Dur) 20 meq PO BIDCM [facility] Last Admin: 07/07/20 18:54 Dose: 20 meq Documented by: Sodium Chloride () 10 - 40 ml IV UD PRN PRN Reason: SALINE FLUSH Last Admin: 07/08/20 06:37 Dose: 10 ml Documented by: Warfarin Sodium (Jantoven) 2.5 mg PO QODAY@1700 [facility] Warfarin Sodium (Jantoven) 5 mg PO QODAY@1700 [facility] Last Admin: 07/07/20 18:54 Dose: 5 mg Documented by: STROKE Vital Signs/Narrative: Vital Signs Pulse BP 07/08/20 07:01 79 07/08/20 06:27 75 121/63 H Medical Necessity - Tobacco Use Smoking Status: Former smoker Tobacco Use: Non-smoker Assessment/Plan All Active Problems (Last Updated 03/27/19 @ 10:16 by Susana Govea) Heart failure (Acute) Infestation by bed bug (Acute) MAX (acute kidney injury) (Acute) CVA (cerebral vascular accident) (Resolved) History of PTCA (Resolved) History of permanent cardiac pacemaker placement (Resolved) Above knee amputation of right lower extremity (Resolved) History of tonsillectomy (Resolved) H/O: hysterectomy (Resolved) History of cholecystectomy (Resolved) H/O adenoidectomy (Resolved) Patient is a 60-year-old lady with multiple comorbidities admitted with bilateral lower extremity edema. An assessment of acute on chronic diastolic heart failure made admitted to a monitored bed for further management 1. Acute on chronic CHF with reduced ejection fraction?patient last 2D echo on record from 2011 demonstrated EF of 25 to 30% repeat echo ordered for EF assessment. Patient was placed on strict input and output, fluid restriction, as well as IV Lasix 2. Acute kidney injury ?Superimposed on chronic kidney disease stage 3. Patient baseline creatinine 1.86 as of 11/04/2019. Kidney function on admission was 2.44. Consult was placed to nephrology 3. Diabetes mellitus type II -With complications including diabetic nephropathy patient's oral hypoglycemics held. Placed on long acting insulin, Accu-Cheks a.c. and at bedtime and covered with sliding scale insulin 4. Paroxysmal A. fib ?Rate controlled on systemic anticoagulation with a therapeutic INR 5. Previous history of DVT Patient is on Coumadin 6. Hypertension - Blood pressure controlled, home medications continued with dose adjustment as needed 7. Dyslipidemia -Patient is on statin therapy, continued at home dose 8. Gout ?Patient is on allopurinol 9. GERD ?Patient is on PPI 10. Depression with anxiety ?Patient is on bupropion 11. Conduction system disorder ?Status post pacemaker placement 12. Status post right above-knee amputation 13. DVT prophylaxis ?Patient is on Coumadin 14. Stage II decubitus ulcer present on admission ?Consult placed to wound care nurse Advance planning; did discuss with the patient and family regarding advanced directives as well as CODE STATUS. Did explain the various scenarios involved ( FULL CODE, DNR CCA, DNR CCA with no intubation, and DNR CC and what each meant) patient remain full code with CPR and intubation if warranted. Order was placed. Time spent on discussion 18 minutes. Inpatient E&M: 25695 Subs Hosp L2 Procedures: 21331 Advncd Care Plan 30 Min
[2020-07-08] MEDS: buPROPion (SR) 150 MG Tablet.SA PO ×2 (08:42→22:15)
[2020-07-08] MEDS: Aspirin 81 MG TAB.CHEW PO (08:42)
[2020-07-08] MEDS: Pantoprazole Sodium 40 MG Tablet PO (08:43)
[2020-07-08] MEDS: Isosorbide Mononitrate 30 MG Tablet PO (08:43)
[2020-07-08] MEDS: Carvedilol 25 MG Tablet PO ×2 (08:43→22:15)
[2020-07-08] MEDS: Nystatin Powder 15gm Bottle 1 APPLIC TOPICAL ×2 (08:43→22:18)
--- NOTE | 2020-07-08 10:20 | NURSING ---
wound photo: right buttock
--- NOTE | 2020-07-08 10:21 | NURSING ---
wound photo: right abdominal fold
--- NOTE | 2020-07-08 10:21 | NURSING ---
wound photo: left abdominal fold
--- NOTE | 2020-07-08 10:22 | NURSING ---
wound photo: left lower leg
--- NOTE | 2020-07-08 10:22 | NURSING ---
wound photo: right stump
[2020-07-08 11:55] LABS: Bedside Glucose 299 mg/dL (70-110)
--- NOTE | 2020-07-08 14:16 | CON.PCM_ITS ---
Problem List (1) MAX (acute kidney injury) Status: Acute (2) CKD (chronic kidney disease) stage 3, GFR 30-59 ml/min Status: Chronic Consultation - Renal 07/08/20 PCP/ Referring MD: Requesting physician: [] Primary care physician: Dr. Leslie Bird MD Reason for Consultation:: MAX - History of Present Illness History of Present Illness: The patient is a 60 year old F who presented to hospital with complaints of LLE edema and dyspnea. renal consulted for MAX. somewhat poor historian. says she had swelling for 3-4 days. breathing is better today. no urinary complaints. no new medications that she knows of. unable to tell me if she gained any weight. apparently living in poor conditions, was found to have bedbug infestation. currently does not offer any complaints other than LLE edema. - Allergies Allergies: Allergies codeine Allergy (Verified 07/07/20 14:29) Rash latex Allergy (Verified 07/07/20 14:29) Itching Penicillins Allergy (Verified 07/07/20 14:29) Swelling dexamethasone [From Maxidex] Adverse Reaction (Verified 07/07/20 14:29) Unknown iodine Adverse Reaction (Verified 07/07/20 14:29) Itching morphine Adverse Reaction (Verified 07/07/20 14:29) Other contrast dye Allergy (Uncoded 07/07/20 14:29) GI upset GI upset - Current Medications Current Medications: Current Medications Acetaminophen (Tylenol) 650 mg PO Q6H PRN PRN PRN Reason: Pain Score 1-10/Temp > 100.7 F Albuterol Sulfate (Ventolin Aerosols) 2.5 mg INHALATION Q2H PRN PRN PRN Reason: SOB/Wheezing Aspirin (Aspirin, Baby) 81 mg PO DAILY@0800 [facility] Last Admin: 07/08/20 08:42 Dose: 81 mg Documented by: Atorvastatin Calcium (Lipitor) 40 mg PO QHS [facility] Last Admin: 07/07/20 21:59 Dose: 40 mg Documented by: Bupropion HCl (Wellbutrin Sr (150mg Tablets)) 150 mg PO BID [facility] Last Admin: 07/08/20 08:42 Dose: 150 mg Documented by: Carvedilol (Coreg) 25 mg PO BID [facility] Last Admin: 07/08/20 08:43 Dose: 25 mg Documented by: Furosemide (Lasix) 40 mg IV Q8 [facility] Last Admin: 07/08/20 06:36 Dose: 40 mg Documented by: Gabapentin (Neurontin) 600 mg PO TID [facility] Last Admin: 07/08/20 06:36 Dose: 600 mg Documented by: Hydralazine HCl (Apresoline) 25 mg PO TID [facility] Last Admin: 07/08/20 06:27 Dose: 25 mg Documented by: Insulin Glargine (Lantus (Bk)) 45 units SC QHS [facility] Last Admin: 07/07/20 22:00 Dose: 45 units Documented by: Insulin Human Lispro (Humalog Kwikpen ([facility])) 0 unit SC ACHS [facility]; Protocol Last Admin: 07/08/20 11:20 Dose: 6 units Documented by: Isosorbide Mononitrate (Imdur) 30 mg PO DAILY [facility] Last Admin: 07/08/20 08:43 Dose: 30 mg Documented by: Nystatin (Mycostatin Powder) 1 applic TOPICAL BID [facility]; Protocol Last Admin: 07/08/20 08:43 Dose: 1 applic Documented by: Nystatin/Triamcinolone Acetonide (Mycolog) 1 applic TOPICAL BID [facility]; Protocol Last Admin: 07/08/20 08:59 Dose: Not Given Documented by: Ondansetron HCl (Zofran) 4 mg IV Q8H PRN PRN PRN Reason: NAUSEA/VOMITING Pantoprazole Sodium (Protonix) 40 mg PO DAILY [facility] Last Admin: 07/08/20 08:43 Dose: 40 mg Documented by: Potassium Chloride (K-Dur) 20 meq PO BIDCM [facility] Last Admin: 07/08/20 08:42 Dose: 20 meq Documented by: Sodium Chloride () 10 - 40 ml IV UD PRN PRN Reason: SALINE FLUSH Last Admin: 07/08/20 06:37 Dose: 10 ml Documented by: Warfarin Sodium (Jantoven) 2.5 mg PO QODAY@1700 [facility] Warfarin Sodium (Jantoven) 5 mg PO QODAY@1700 [facility] Last Admin: 07/07/20 18:54 Dose: 5 mg Documented by: - Past Medical History Past Medical History (Chronic Problems): Chronic Problems (Last Updated 03/27/19 @ 10:15 by Susana Govea) Anemia (Chronic) Thrombocytopenia (Chronic) CKD (chronic kidney disease) stage 3, GFR 30-59 ml/min (Chronic) Asthma (Chronic) Chronic renal insufficiency (Chronic) COPD (chronic obstructive pulmonary disease) (Chronic) HLD (hyperlipidemia) (Chronic) Coronary artery disease (Chronic) Hypothyroidism (Chronic) Atrial fibrillation (Chronic) Ischemic cardiomyopathy (Chronic) Diabetes mellitus (Chronic) type II Morbid obesity (Chronic) History of DVT of lower extremity (Chronic) Tobacco abuse (Chronic) - Past Surgical History Surgical History: adenoidectomy, cholecystectomy, hysterectomy, tonsillectomy, - - Right [id number] amputation, panniculectomy, pacemaker placement, left leg vein grafting/bypass. - Social History Smoking Status: Former smoker Alcohol: None Drugs: None - Family History Maternal History Items: Diabetes, Heart Disease, Hypertension Paternal History Items: Heart Disease, - - Mesothelioma. Review of Systems Constitutional: Denies: Chills, Fever, Weight Change HEENT: Denies: Head Aches, Sinus Congestion, Sinus Drainage Cardiovascular: Reports: Edema. Denies: Chest Pain, Palpitations Respiratory: Denies: Cough, Shortness of breath at rest, Sputum production Gastrointestinal: Denies: Abdominal Pain, Nausea, Vomiting Genitourinary: Denies: Dysuria Musculoskeletal: Denies: Joint Pain, Joint Tenderness Skin: Denies: Rash, Wounds Neurological: Denies: Numbness, Tingling, Focal weakness Psychiatric: Denies: Anxiety, Depression, Homicidal Ideations, Suicidal Ideations Hematologic/ Lymphatic: Denies: Easy Bruising, Easy Bleeding Patient Problems: Active and Suspected Problems (Last Updated 03/27/19 @ 10:15 by Susana Govea) Heart failure (Acute) Infestation by bed bug (Acute) MAX (acute kidney injury) (Acute) - Physical Exam Vitals/I&O's: Vital Signs Temp Pulse Resp BP Pulse Ox 97.8 F 76 16 109/62 95 07/08/20 08:41 07/08/20 08:41 07/08/20 08:41 07/08/20 08:41 07/08/20 08:41 Oxygen Delivery Method Room Air Weight: 151.7 kg Body Mass Index (BMI) 44.1 Finger Stick Blood Glucose 77 Intake and Output for Last 24 Hours 07/06/20 07/07/20 07/08/20 23:59 23:59 23:59 Intake Total 120 / 120 Output Total 750 / 750 500 / 500 Balance -630 / -630 -500 / -500 General: Alert, Oriented x3, Cooperative HEENT: Atraumatic, PERRLA, EOMI, Normocephalic Neck: Supple, No JVD, Negative Carotid Bruits Lungs: Clear to auscultation, Normal air movement Cardiovascular: Regular rate, No murmurs Abdomen: Bowel Sounds Present, Soft, Non Tender Extremities: Capillary Refill Less than 3 Seconds, Edema - Right BKA Skin: No rashes, No breakdown Musculoskeletal: No Tenderness to Palpation of Joints or Extremities Neurological: Cranial nerves II-XII grossly intact Psych/Mental Status: Normal Affect, Appropriate Laboratory Results 07/07/20 14:52: WBC 4.5, RBC 3.39 L, Hgb 9.3 L, Hct 31.7 L, MCV 93.5, MCH 27.4, MCHC 29.3 L, RDW Std Deviation 74.6 H, RDW Coeff of Yoandy 21.8 H, Plt Count 103 L, MPV 11.7, Immature Gran % (Auto) 0.200, Neut % (Auto) 74.7 H, Lymph % (Auto) 12.8 L, Rincon % (Auto) 9.7, Eos % (Auto) 2.2, Baso % (Auto) 0.4, Absolute Neuts (auto) 3.4, Absolute Lymphs (auto) 0.58 L, Nucleated RBC % 0, Differential Comment SCANNED, Anisocytosis 1+ 07/07/20 14:52: PT 24.6 H, INR 2.3 07/07/20 14:52: Sodium 138, Potassium 4.2, Chloride 104, Carbon Dioxide 27.0, Anion Gap 7, BUN 79 H, Creatinine 2.48 H, Estim Creat Clear Calc 29.07, Est GFR (MDRD) Af Amer 26 L, Est GFR (MDRD) Non-Af 21 L, BUN/Creatinine Ratio 31.9 H, Glucose 211 H, Calcium 8.3 L, Troponin I < 0.015 07/07/20 14:52: B-Natriuretic Peptide 576.0 H 07/07/20 21:49: POC Glucose 248 H 07/08/20 06:33: POC Glucose 180 H 07/08/20 06:42: PT 24.9 H, INR 2.3 07/08/20 06:42: Sodium 142, Potassium 4.1, Chloride 108 H, Carbon Dioxide 25.0, Anion Gap 9, BUN 78 H, Creatinine 2.44 H, Estim Creat Clear Calc 29.55, Est GFR (MDRD) Af Amer 26 L, Est GFR (MDRD) Non-Af 22 L, BUN/Creatinine Ratio 32.0 H, Glucose 166 H, Calcium 8.3 L 07/08/20 11:19: POC Glucose 299 H Current Medications Acetaminophen (Tylenol) 650 mg PO Q6H PRN PRN PRN Reason: Pain Score 1-10/Temp > 100.7 F Albuterol Sulfate (Ventolin Aerosols) 2.5 mg INHALATION Q2H PRN PRN PRN Reason: SOB/Wheezing Aspirin (Aspirin, Baby) 81 mg PO DAILY@0800 [facility] Last Admin: 07/08/20 08:42 Dose: 81 mg Documented by: Atorvastatin Calcium (Lipitor) 40 mg PO QHS [facility] Last Admin: 07/07/20 21:59 Dose: 40 mg Documented by: Bupropion HCl (Wellbutrin Sr (150mg Tablets)) 150 mg PO BID [facility] Last Admin: 07/08/20 08:42 Dose: 150 mg Documented by: Carvedilol (Coreg) 25 mg PO BID [facility] Last Admin: 07/08/20 08:43 Dose: 25 mg Documented by: Furosemide (Lasix) 40 mg IV Q8 [facility] Last Admin: 07/08/20 06:36 Dose: 40 mg Documented by: Gabapentin (Neurontin) 600 mg PO TID [facility] Last Admin: 07/08/20 06:36 Dose: 600 mg Documented by: Hydralazine HCl (Apresoline) 25 mg PO TID [facility] Last Admin: 07/08/20 06:27 Dose: 25 mg Documented by: Insulin Glargine (Lantus (Bk)) 45 units SC QHS [facility] Last Admin: 07/07/20 22:00 Dose: 45 units Documented by: Insulin Human Lispro ([facility]alog K[facility] (Bk)) [facility] Protocol Last Admin: 07/08/20 11:20 Dose: 6 units Documented by: Isosorbide Mononitrate (Imdur) 30 mg PO DAILY [facility] Last Admin: 07/08/20 08:43 Dose: 30 mg Documented by: Nystatin (Mycostatin Powder) 1 applic TOPICAL BID [facility]; Protocol Last Admin: 07/08/20 08:43 Dose: 1 applic Documented by: Nystatin/Triamcinolone Acetonide (Mycolog) 1 applic TOPICAL BID [facility]; Protocol Last Admin: 07/08/20 08:59 Dose: Not Given Documented by: Ondansetron HCl (Zofran) 4 mg IV Q8H PRN PRN PRN Reason: NAUSEA/VOMITING Pantoprazole Sodium (Protonix) 40 mg PO DAILY [facility] Last Admin: 07/08/20 08:43 Dose: 40 mg Documented by: Potassium Chloride (K-Dur) 20 meq PO BIDCM [facility] Last Admin: 07/08/20 08:42 Dose: 20 meq Documented by: Sodium Chloride () 10 - 40 ml IV UD PRN PRN Reason: SALINE FLUSH Last Admin: 07/08/20 06:37 Dose: 10 ml Documented by: Warfarin Sodium (Jantoven) 2.5 mg PO QODAY@1700 [facility] Warfarin Sodium (Jantoven) 5 mg PO QODAY@1700 [facility] Last Admin: 07/07/20 18:54 Dose: 5 mg Documented by: Assessment/Plan All Active Problems (Last Updated 03/27/19 @ 10:16 by Susana Govea) Heart failure (Acute) Infestation by bed bug (Acute) MAX (acute kidney injury) (Acute) CVA (cerebral vascular accident) (Resolved) History of PTCA (Resolved) History of permanent cardiac pacemaker placement (Resolved) Above knee amputation of right lower extremity (Resolved) History of tonsillectomy (Resolved) H/O: hysterectomy (Resolved) History of cholecystectomy (Resolved) H/O adenoidectomy (Resolved) MAX CKD 3 baseline creatinine seems to be around 1.8 as of early this year. PCP is Dr Bird. will review [facility] epic records Check UA and post void bladder scan if no renal imaging in [facility] system will check a renal US BP is on lower side MAX is likely cardiorenal CHF. echo pending. CXR was wet. had LLE edema. continue IV lasix for today will follow thank you
--- NOTE | 2020-07-08 15:35 | CASEMGMT ---
NYDIA received a phone call from Tatyana with [facility]. She said patient is active with [facility]. She has home health aides. Sun-Sun she has an independent aide from 9a-. Then she has an aide M-F from [employer] for 2 hours in the afternoon and 3 hours on Sunday. She also gets meals delivered and has a medical alert response system. Patient normally is able to get around her home independently. She has a power wheelchair has had to use a sliding board to transfer in the past. Patient does have bed bugs and she is waiting on her landlord to send in the acid supervisor. Per Tatyana patient lives in an apartment that is an old house split into 2 apartments. She said unfortunately both apartments have had issues with bed bugs in the past. The landlord won't exterminate the whole place at once. Therefore the bedbugs go to the apartment that is not getting exterminated and vice versa so the process just keeps repeating. She said she has been trying to get patient a hospital bed, but Pablo has not done anything yet. She said patient will likely disagree with going to a custodial. She asked that NYDIA let her know when patient is discharged and where she goes. Ly CHUNG MSW
[2020-07-08 17:00] LABS: Bedside Glucose 167 mg/dL (70-110)
[2020-07-08 17:02] LABS: Color, Urine Yellow (Yellow); Glucose, Dipstick Normal (Normal); Ketone-Dipstick Negative (Negative); Leukocyte Esterase-Dipstick Negative /ul (Negative); Nitrite-Dipstick Negative (Negative); Occult Blood-Urine Negative /ul (Negative); Protein-Dipstick 30 mg/dl (Negative); Specific Gravity, Urine 1.015 (1.002-1.030); Urine Bilirubin Dipstick Negative (Negative); Urine Clarity Sl. Cloudy (Clear); Urine Urobilinogen Normal (Normal)
[2020-07-08] MEDS: Atorvastatin Calcium 40 MG Tablet PO (22:15)
[2020-07-08] MEDS: Nystatin/Triamcin Cream Tube 1 APPLIC TOPICAL (22:17)
[2020-07-08 22:31] LABS: Bedside Glucose 164 mg/dL (70-110)
[2020-07-09] VITALS (12 sets, daily range): BP systolic 104–126; BP diastolic 54–73; PULSE 60–89; RESP 14–18; TEMP 36.6–37.7; O2SAT 93–97
[2020-07-09 06:08] LABS: International Normalized Ratio 2.1; Prothrombin Time (Protime)PT. 23.4 SECONDS (11.7-14.9)
[2020-07-09] MEDS: Furosemide 40 MG/4 ML Vial IV ×2 (06:47→14:41)
[2020-07-09] MEDS: hydrALAZINE 25 MG Tablet PO ×2 (06:47→14:24)
[2020-07-09] MEDS: Gabapentin 600 MG Tablet PO ×2 (06:47→14:24)
[2020-07-09] MEDS: 0.9% Saline Lock 10 ML Syringe IV (06:49)
[2020-07-09 07:01] LABS: Bedside Glucose 137 mg/dL (70-110)
--- NOTE | 2020-07-09 07:55 | PN_ITS ---
Patient Problems: Active and Suspected Problems (Last Updated 03/27/19 @ 10:15 by Susana Govea) Heart failure (Acute) Infestation by bed bug (Acute) MAX (acute kidney injury) (Acute) Reason for Visit: Acute congestive heart failure Subjective: Patient is a 60-year-old lady with multiple comorbidities admitted with bilateral lower extremity edema. An assessment of acute on chronic diastolic heart failure made admitted to a monitored bed for further management Discussion with the patient. Patient reluctantly agreed to be considered for fdc facility placement for rehab if she qualified Objective: GENERAL: cooperative HEENT: Atraumatic; EYES; Anicteric, Normal Conjunctiva NECK; supple, normal thyroid, RESPIRATORY: Diminished to auscultation CARDIOVASCULAR: Regular S1 S2, GI: soft, normoactive bowel sounds, : No Renal angle tenderness; EXTREMITIES: Edema and erythema involving the left lower extremity MUSCULOSKELETAL: Right BKA NEURO: Awake; no lateralizing signs. SKIN: stasis dermatitis PSYCH; Flat affect Vitals/I&O's: Vital Signs Temp Pulse Resp BP Pulse Ox 98.0 F 60 14 104/61 94 07/09/20 04:09 07/09/20 07:37 07/09/20 07:37 07/09/20 04:09 07/09/20 04:09 Oxygen Delivery Method Room Air Weight: 151.6 kg Body Mass Index (BMI) 44.1 Finger Stick Blood Glucose 77 Intake and Output for Last 24 Hours 07/07/20 07/08/20 07/09/20 23:59 23:59 23:59 Intake Total 120 / 120 360 / 360 300 / 300 Output Total 750 / 750 1700 / 1700 650 / 650 Balance -630 / -630 -1340 / -1340 -350 / -350 Laboratory Results 07/08/20 11:19: POC Glucose 299 H 07/08/20 16:38: Urine Color Yellow, Urine Clarity Sl. Cloudy, Urine pH 6.0, Ur Specific Wright 1.015, Urine Protein 30 H, Urine Glucose (UA) Normal, Urine Ketones Negative, Urine Occult Blood Negative, Urine Nitrite Negative, Urine Bilirubin Negative, Urine Urobilinogen Normal, Ur Leukocyte Esterase Negative 07/08/20 16:52: POC Glucose 167 H 07/08/20 22:07: POC Glucose 164 H 07/09/20 05:29: PT 23.4 H, INR 2.1 07/09/20 06:46: POC Glucose 137 H Current Medications Acetaminophen (Tylenol) 650 mg PO Q6H PRN PRN PRN Reason: Pain Score 1-10/Temp > 100.7 F Al Hydroxide/Mg Hydroxide (Mylanta Ii) 30 ml PO Q6H PRN PRN PRN Reason: Gastric Burning Albuterol Sulfate (Ventolin Aerosols) 2.5 mg INHALATION Q2H PRN PRN PRN Reason: SOB/Wheezing Aspirin (Aspirin, Baby) 81 mg PO DAILY@0800 [facility] Last Admin: 07/08/20 08:42 Dose: 81 mg Documented by: Atorvastatin Calcium (Lipitor) 40 mg PO QHS [facility] Last Admin: 07/08/20 22:15 Dose: 40 mg Documented by: Bisacodyl (Dulcolax) 10 mg PO DAILY PRN PRN PRN Reason: Constipation Bupropion HCl (Wellbutrin Sr (150mg Tablets)) 150 mg PO BID [facility] Last Admin: 07/08/20 22:15 Dose: 150 mg Documented by: Carvedilol (Coreg) 25 mg PO BID [facility] Last Admin: 07/08/20 22:15 Dose: 25 mg Documented by: Docusate Sodium (Colace) 200 mg PO BID [facility] Furosemide (Lasix) 40 mg IV Q8 [facility] Last Admin: 07/09/20 06:47 Dose: 40 mg Documented by: Gabapentin (Neurontin) 600 mg PO TID [facility] Last Admin: 07/09/20 06:47 Dose: 600 mg Documented by: Hydralazine HCl (Apresoline) 25 mg PO TID [facility] Last Admin: 07/09/20 06:47 Dose: 25 mg Documented by: Insulin Glargine (Lantus (Bk)) 45 units SC QHS [facility] Last Admin: 07/08/20 22:17 Dose: 45 units Documented by: Insulin Human Lispro (Humalog Kwikpen ([facility])) 0 unit SC [facility]; Protocol Last Admin: 07/09/20 06:48 Dose: Not Given Documented by: Isosorbide Mononitrate (Imdur) 30 mg PO DAILY [facility] Last Admin: 07/08/20 08:43 Dose: 30 mg Documented by: Nystatin (Mycostatin Powder) 1 applic TOPICAL BID [facility]; Protocol Last Admin: 07/08/20 22:18 Dose: 1 applic Documented by: Nystatin/Triamcinolone Acetonide (Mycolog) 1 applic TOPICAL BID [facility]; Protocol Last Admin: 07/08/20 22:17 Dose: 1 applicatio Documented by: Ondansetron HCl (Zofran) 4 mg IV Q8H PRN PRN PRN Reason: NAUSEA/VOMITING Pantoprazole Sodium (Protonix) 40 mg PO DAILY [facility] Last Admin: 07/08/20 08:43 Dose: 40 mg Documented by: Polyethylene Glycol (Miralax) 17 gm PO DAILY [facility] Pot[facility] ([facility] Last Admin: 07/08/20 16:54 Dose: 20 meq Documented by: Sodium Chloride () 10 - 40 ml IV UD PRN PRN Reason: SALINE FLUSH Last Admin: 07/09/20 06:49 Dose: 10 ml Documented by: Warfarin Sodium (Jantoven) 2.5 mg PO QODAY@1700 [facility] Last Admin: 07/08/20 16:54 Dose: 2.5 mg Documented by: Warfarin Sodium (Jantoven) 5 mg PO QODAY@1700 [facility] Last Admin: 07/07/20 18:54 Dose: 5 mg Documented by: [facility]OKE Vital Signs/Narrative: Vital Signs Temp Pulse Resp BP Pulse Ox 07/09/20 07:37 60 14 07/09/20 07:25 80 07/09/20 06:47 79 07/09/20 04:09 98.0 F 79 18 104/61 94 Medical Necessity - Tobacco Use Smoking Status: Former smoker Tobacco Use: Non-smoker Assessment/Plan All Active Problems (Last Updated 03/27/19 @ 10:16 by Susana Govea) Heart failure (Acute) Infestation by bed bug (Acute) MAX (acute kidney injury) (Acute) CVA (cerebral vascular accident) (Resolved) History of PTCA (Resolved) History of permanent cardiac pacemaker placement (Resolved) Above knee amputation of right lower extremity (Resolved) History of tonsillectomy (Resolved) H/O: hysterectomy (Resolved) History of cholecystectomy (Resolved) H/O adenoidectomy (Resolved) Patient is a 60-year-old lady with multiple comorbidities admitted with bilateral lower extremity edema. An assessment of acute on chronic diastolic heart failure made admitted to a monitored bed for further management 1. Acute on chronic CHF with reduced ejection fraction?patient last 2D echo on record from 2011 demonstrated EF of 25 to 30% repeat echo ordered for EF assessment. Patient was placed on strict input and output, fluid restriction, as well as IV Lasix 2. Acute kidney injury ?Superimposed on chronic kidney disease stage 3. Patient baseline creatinine 1.86 as of 11/04/2019. Kidney function on admission was 2.44. Consult was placed to nephrology 3. Diabetes mellitus type II -With complications including diabetic nephropathy patient's oral hypoglycemics held. Placed on long acting insulin, Accu-Cheks a.c. and at bedtime and covered with sliding scale insulin 4. Paroxysmal A. fib ?Rate controlled on systemic anticoagulation with a therapeutic INR 5. Previous history of DVT Patient is on Coumadin 6. Hypertension - Blood pressure controlled, home medications continued with dose adjustment as needed 7. Dyslipidemia -Patient is on statin therapy, continued at home dose 8. Gout ?Patient is on allopurinol 9. GERD ?Patient is on PPI 10. Depression with anxiety ?Patient is on bupropion 11. Conduction system disorder ?Status post pacemaker placement 12. Status post right above-knee amputation 13. DVT prophylaxis ?Patient is on Coumadin 14. Stage II decubitus ulcer present on admission ?Consult placed to wound care nurse 15. Physical deconditioning - Requested for PT OT eval and social welfare administrator to assist with discharge planning Inpatient E&M: 70130 Subs Hosp L2
[2020-07-09 08:10] LABS: Anion Gap 5 (5-15); BUN 79 mg/dL (7-18); BUN/Creat Ratio 31.6 RATIO (10-20); Calcium,Total 8.4 mg/dL (8.5-10.1); Chloride 109 mmol/L (98-107); EST Glomerular Filtration Rate 21 mL/min (>60); Est Glom Filt Rate - Afr Amer 25 mL/min (>60); Estimated Creatinine Clearance 28.84 ml/min; Glucose 131 mg/dL (74-106); Magnesium 2.3 mg/dL (1.6-2.6); Sodium Level 141 mmol/L (136-145)
[2020-07-09 08:19] LABS: Hematocrit 29.7 % (37-47); Hemoglobin 8.7 g/dL (12.0-15.0); Mean Corp Hgb Conc 29.3 g/dL (32-36); Mean Corpuscular Hgb 27.4 pg (27.0-32.0); Mean Corpuscular Volume 93.7 fL (81-99); Mean Platelet Vol. 11.1 fl (6.2-12.0); POSITIVE COUNT YES; POSITIVE MORPHOLOGY YES; RBC Distribution Width CV 22.3 % (11.6-14.6); RBC Distribution Width SD 74.8 fl (35.1-43.9); Red Blood Count 3.17 M/mm3 (4.2-5.4); White Blood Count 4.4 K/mm3 (4.4-11.0)
[2020-07-09 08:54] LABS: Scan Indicated on CBC? Y/N YES- FLAGS NOTED
[2020-07-09] MEDS: Aspirin 81 MG TAB.CHEW PO (09:04)
[2020-07-09] MEDS: Isosorbide Mononitrate 30 MG Tablet PO (09:05)
[2020-07-09] MEDS: Docusate Sodium 100 MG Capsule 200 MG PO (09:05)
[2020-07-09] MEDS: Pantoprazole Sodium 40 MG Tablet PO (09:05)
[2020-07-09] MEDS: Carvedilol 25 MG Tablet PO (09:05)
[2020-07-09] MEDS: Nystatin/Triamcin Cream Tube 1 APPLIC TOPICAL (09:06)
[2020-07-09] MEDS: buPROPion (SR) 150 MG Tablet.SA PO (09:06)
[2020-07-09] MEDS: Nystatin Powder 15gm Bottle 1 APPLIC TOPICAL (09:06)
--- NOTE | 2020-07-09 10:27 | CASEMGMT ---
Addendum entered by Bertha Allen 07/09/20 13:57: Return call from [facility] and they are able to accept pt and precert to be started at this time. Plan: [facility], pending precert. KARISSA Henriquez Original Note: Social Work Physician reporting pt will need SNF placement at d/c. SW met with pt and introduced self and role. Pt acknowledging need for SNF and states she would like to go to [facility]. SW provided pt with written list of in network facilities. Phone call to Susana at [facility] and they do have beds available. Clinicals faxed to [facility]. enrobing machine corder notified that Covid test will be needed prior to discharge. Plan: [facility], pending acceptance, negative covid and insurance preautKARISSA Camara
[2020-07-09] MEDS: Insulin Lispro 100 UNIT/ML INSULN.PEN SC ×2 (11:12→16:16)
[2020-07-09 11:20] LABS: Bedside Glucose 193 mg/dL (70-110)
--- NOTE | 2020-07-09 11:25 | NURSING ---
JACKSON form reviewed with patient in regards to treatment of diastolic CHF and elevated creatinine. Notified patient that outpatient billing is determined by her insurance policy and status during hospital stay is continually reviewed for and changes in condition that may warrant Inpatient stay. Patient stated understanding and denies any questions or concerns with [facility]SON form at this time. J[facility]SON form was signed by patient and placed in hard chart, patient was provided a copy. CHANELL Ramos
--- NOTE | 2020-07-09 13:27 | NURSING ---
Read and reviewed SN documentation
--- NOTE | 2020-07-09 14:21 | PCM.PN.REN ---
Patient Problems: Active and Suspected Problems (Last Updated 03/27/19 @ 10:15 by Susana Govea) Heart failure (Acute) Infestation by bed bug (Acute) MAX (acute kidney injury) (Acute) Subjective: No new complaints - Physical Exam Vitals/I&O's: Vital Signs Temp Pulse Resp BP Pulse Ox 99.8 F H 72 14 123/61 H 95 07/09/20 09:47 07/09/20 13:35 07/09/20 09:47 07/09/20 09:47 07/09/20 09:47 Oxygen Delivery Method Room Air Weight: 151.6 kg Body Mass Index (BMI) 44.1 Finger Stick Blood Glucose 77 Intake and Output for Last 24 Hours 07/07/20 07/08/20 07/09/20 23:59 23:59 23:59 Intake Total 120 / 120 360 / 360 800 / 800 Output Total 750 / 750 1700 / 1700 1000 / 1000 Balance -630 / -630 -1340 / -1340 -200 / -200 General: Alert, Oriented x3, Cooperative HEENT: Atraumatic, PERRLA, EOMI, Normocephalic Neck: Supple, No JVD, Negative Carotid Bruits Lungs: Clear to auscultation, Normal air movement Cardiovascular: Regular rate, No murmurs Abdomen: Bowel Sounds Present, Soft, Non Tender Extremities: Capillary Refill Less than 3 Seconds, Edema Skin: No rashes, No breakdown Musculoskeletal: No Tenderness to Palpation of Joints or Extremities Neurological: Cranial nerves II-XII grossly intact Psych/Mental Status: Normal Affect, Appropriate Laboratory Results 07/08/20 16:38: Urine Color Yellow, Urine Clarity Sl. Cloudy, Urine pH 6.0, Ur Specific [place] 1.015, Urine Protein 30 H, Urine Glucose (UA) Normal, Urine Ketones Negative, Urine Occult Blood Negative, Urine Nitrite Negative, Urine Bilirubin Negative, Urine Urobilinogen Normal, Ur Leukocyte Esterase Negative 07/08/20 16:52: POC Glucose 167 H 07/08/20 22:07: POC Glucose 164 H 07/09/20 05:29: PT 23.4 H, INR 2.1 07/09/20 05:29: WBC 4.4, RBC 3.17 L, Hgb 8.7 L, Hct 29.7 L, MCV 93.7, MCH 27.4, MCHC 29.3 L, RDW Std Deviation 74.8 H, RDW Coeff of Yoandy 22.3 H, Plt Count , MPV 11.1, Differential Comment 07/09/20 05:29: Sodium 141, Potassium 4.0, Chloride 109 H, Carbon Dioxide 27.0, Anion Gap 5, BUN 79 H, Creatinine 2.50 H, Estim Creat Clear Calc 28.84, Est GFR (MDRD) Af Amer 25 L, Est GFR (MDRD) Non-Af 21 L, BUN/Creatinine Ratio 31.6 H, Glucose 131 H, Calcium 8.4 L, Magnesium 2.3 07/09/20 06:46: POC Glucose 137 H 07/09/20 10:19: COVID-19 (FELICIA) Pending 07/09/20 11:11: POC Glucose 193 H Current Medications Acetaminophen (Tylenol) 650 mg PO Q6H PRN PRN PRN Reason: Pain Score 1-10/Temp > 100.7 F Al Hydroxide/Mg Hydroxide (Mylanta Ii) 30 ml PO Q6H PRN PRN PRN Reason: Gastric Burning Albuterol Sulfate (Ventolin Aerosols) 2.5 mg INHALATION Q2H PRN PRN PRN Reason: SOB/Wheezing Aspirin (Aspirin, Baby) 81 mg PO DAILY@0800 [facility] Last Admin: 07/09/20 09:04 Dose: 81 mg Documented by: Atorvastatin Calcium (Lipitor) 40 mg PO QHS [facility] Last Admin: 07/08/20 22:15 Dose: 40 mg Documented by: Bisacodyl (Dulcolax) 10 mg PO DAILY PRN PRN PRN Reason: Constipation Bupropion HCl (Wellbutrin Sr (150mg Tablets)) 150 mg PO BID [facility] Last Admin: 07/09/20 09:06 Dose: 150 mg Documented by: Carvedilol (Coreg) 25 mg PO BID [facility] Last Admin: 07/09/20 09:05 Dose: 25 mg Documented by: Docusate Sodium (Colace) 200 mg PO BID [facility] Last Admin: 07/09/20 09:05 Dose: 200 mg Documented by: Furosemide (Lasix) 40 mg IV Q8 [facility] Last Admin: 07/09/20 06:47 Dose: 40 mg Documented by: Gabapentin (Neurontin) 600 mg PO TID [facility] Last Admin: 07/09/20 06:47 Dose: 600 mg Documented by: Hydralazine HCl (Apresoline) 25 mg PO TID [facility] Last Admin: 07/09/20 06:47 Dose: 25 mg Documented by: Insulin Glargine (Lantus (Bk)) 45 units SC QHS [facility] Last Admin: 07/08/20 22:17 Dose: 45 units Documented by: Insulin Human Lispro (Humalog Kwikpen ([facility])) 0 unit SC ACHS [facility]; Protocol Last Admin: 07/09/20 11:12 Dose: 2 units Documented by: Isosorbide Mononitrate (Imdur) 30 mg PO DAILY [facility] Last Admin: 07/09/20 09:05 Dose: 30 mg Documented by: Nystatin (Mycostatin Powder) 1 applic TOPICAL BID [facility]; Protocol Last Admin: 07/09/20 09:06 Dose: 1 applic Documented by: Nystatin/Triamcinolone Acetonide (Mycolog) 1 applic TOPICAL BID [facility]; Protocol Last Admin: 07/09/20 09:06 Dose: 1 applicatio Documented by: Ondansetron HCl (Zofran) 4 mg IV Q8H PRN PRN PRN Reason: NAUSEA/VOMITING Pantoprazole Sodium (Protonix) 40 mg PO DAILY [facility] Last Admin: 07/09/20 09:05 Dose: 40 mg Documented by: Polyethylene Glycol (Miralax) 17 gm PO DAILY [facility] Last Admin: 07/09/20 09:07 Dose: Not Given Documented by: Potassium Chloride (K-Dur) 20 meq PO BIDCM [facility] Last Admin: 07/09/20 09:04 Dose: 20 meq Documented by: Sodium Chloride () 10 - 40 ml IV UD PRN PRN Reason: SALINE FLUSH Last Admin: 07/09/20 06:49 Dose: 10 ml Documented by: Warfarin Sodium (Jantoven) 2.5 mg PO QODAY@1700 [facility] Last Admin: 07/08/20 16:54 Dose: 2.5 mg Documented by: Warfarin Sodium (Jantoven) 5 mg PO QODAY@1700 [facility] Last Admin: 07/07/20 18:54 Dose: 5 mg Documented by: Medical Necessity - Tobacco Use Smoking Status: Former smoker Tobacco Use: Non-smoker Assessment/Plan All Active Problems (Last Updated 03/27/19 @ 10:16 by Susana Govea) Heart failure (Acute) Infestation by bed bug (Acute) MAX (acute kidney injury) (Acute) CVA (cerebral vascular accident) (Resolved) History of PTCA (Resolved) History of permanent cardiac pacemaker placement (Resolved) Above knee amputation of right lower extremity (Resolved) History of tonsillectomy (Resolved) H/O: hysterectomy (Resolved) History of cholecystectomy (Resolved) H/O adenoidectomy (Resolved) MAX CKD 3 Reviewed old records from [facility]. Baseline creatinine seems to be between 1.6-1.8. Likely related to comorbid conditions. Urine analysis is fairly benign except for 1+ protein. Blood pressure is acceptable. Urine output is acceptable. Renal imaging from last year did not show any hydronephrosis. Postvoid bladder scan yesterday was elevated hence Nash catheter was placed. Can do a voiding trial when she is closer to discharge. Acute rise in creatinine is likely related to diuresis. CHF. Has been on IV Lasix. Urine output is acceptable. Edema is slowly improving. Continue same dose for now. will follow thank you
--- NOTE | 2020-07-09 15:57 | PCM.TXEXTCAR ---
- Diet 07/07/20 17:34 Diet: Cardiac: Calorie-Controlled Food consistency:: Regular Liquid Consistency:: Regular/Thin How many daily calories?: 1800 calorie - Routine Orders/Code Status O2 Frequency: PRN Code Status: Full Code - Wound(s) RIGHT BUTTOCK Wound Type: Pressure Injury Dressing Change: applied Mepilex GROIN Wound Type: EXCORIATION LEFT LOWER EXTREMITY Wound Type: Stasis Ulcer Dressing Change: Adaptic LEFT HEAL Wound Type: Neuropathic/Diabetic Foot Ulcer RIGHT LE AMPUTATION WOUND Wound Type: non healing wound Dressing Change: Dry Sterile Dressing abdominal folds/groin Wound Type: excoriation - Therapies Physical Therapy: Eval and Treat Occupational Therapy: Eval and Treat - Allergies/Procedures Done in Hospital Allergies/Adverse Reactions: Allergies codeine Allergy (Verified 07/07/20 14:29) Rash latex Allergy (Verified 07/07/20 14:29) Itching Penicillins Allergy (Verified 07/07/20 14:29) Swelling dexamethasone [From Maxidex] Adverse Reaction (Verified 07/07/20 14:29) Unknown iodine Adverse Reaction (Verified 07/07/20 14:29) Itching morphine Adverse Reaction (Verified 07/07/20 14:29) Other contrast dye Allergy (Uncoded 07/07/20 14:29) GI upset GI upset - Type of Care/Length of Stay Estimated LOS: Convalescent Care Less Than 30 days Type of Care Needed: Skilled Rehab Potential: Good Prognosis: Good - Additional Orders/Day of Discharge Day of Discharge: 07/09/20 - Follow Up Care Primary Care Physician: Leslie Bird MD [Primary Care Provider] -
--- NOTE | 2020-07-09 16:01 | DS.PCM_ITS ---
Discharge Date and Diagnosis Date of Admission: 07/07/20 Date of Discharge: 07/09/20 - Primary Discharge Diagnosis Acute Problems: Active Problems (Last Updated 03/27/19 @ 10:15 by Susana Govea) Heart failure (Acute) Infestation by bed bug (Acute) MAX (acute kidney injury) (Acute) - Secondary Discharge Diagnosis Chronic Problems: Chronic Problems (Last Updated 03/27/19 @ 10:15 by Susana Govea) Anemia (Chronic) Thrombocytopenia (Chronic) CKD (chronic kidney disease) stage 3, GFR 30-59 ml/min (Chronic) Asthma (Chronic) Chronic renal insufficiency (Chronic) COPD (chronic obstructive pulmonary disease) (Chronic) HLD (hyperlipidemia) (Chronic) Coronary artery disease (Chronic) Hypothyroidism (Chronic) Atrial fibrillation (Chronic) Ischemic cardiomyopathy (Chronic) Diabetes mellitus (Chronic) type II Morbid obesity (Chronic) History of DVT of lower extremity (Chronic) Tobacco abuse (Chronic) Hospital Course and Treatment Consultations 07/07/20 17:34 Consult: Onc/Wound/practical nurse clinical coordinator Routine Comment: Operations: None Summary of Care Provided: Patient is a 60-year-old lady with multiple comorbidities admitted with bilateral lower extremity edema. An assessment of acute on chronic diastolic heart failure made admitted to a monitored bed for further management 1. Acute on chronic CHF with reduced ejection fraction?patient last 2D echo on record from 2011 demonstrated EF of 25 to 30% repeat echo ordered for EF assessment. Patient was placed on strict input and output, fluid restriction, as well as IV Lasix -Echo obtained demonstrated Interpretation Summary The estimated ejection fraction is 25-30 %. Unable to assess diastolic dysfunction. Moderately dilated right ventricle. Moderate global right ventricular systolic dysfunction. There is moderate to severe global hypokinesis of the left ventricle. The left atrium is severely enlarged. The right atrium is severely enlarged. Rheumatic appearing mitral valve with moderate to severe mitral stenosis. The degree of stenosis may be underestimated. Recommend a limited echo to evalute the mitral valve further. Mild (1+) mitral valve insufficiency. Pulmonary artery systolic pressure is 55-60 mmHg. The inferior vena cava is dilated 2. Acute kidney injury ?Superimposed on chronic kidney disease stage 3. Patient baseline creatinine 1.86 as of 11/04/2019. Kidney function on admission was 2.44. Consult was placed to nephrology 3. Diabetes mellitus type II -With complications including diabetic nephropathy patient's oral hypoglycemics held. Placed on long acting insulin, Accu-Cheks a.c. and at bedtime and covered with sliding scale insulin 4. Paroxysmal A. fib ?Rate controlled on systemic anticoagulation with a therapeutic INR 5. Previous history of DVT Patient is on Coumadin 6. Hypertension - Blood pressure controlled, home medications continued with dose adjustment as needed 7. Dyslipidemia -Patient is on statin therapy, continued at home dose 8. Gout ?Patient is on allopurinol 9. GERD ?Patient is on PPI 10. Depression with anxiety ?Patient is on bupropion 11. Conduction system disorder ?Status post pacemaker placement 12. Status post right above-knee amputation 13. DVT prophylaxis ?Patient is on Coumadin 14. Stage II decubitus ulcer present on admission ?Consult placed to wound care nurse 15. Physical deconditioning - Requested for PT OT eval and social media senior associate to assist with discharge planning Objective: GENERAL: cooperative HEENT: Atraumatic; EYES; Anicteric, Normal Conjunctiva NECK; supple, normal thyroid, RESPIRATORY: Diminished to auscultation CARDIOVASCULAR: Regular S1 S2, GI: soft, normoactive bowel sounds, : No Renal angle tenderness; EXTREMITIES: Edema and erythema involving the left lower extremity MUSCULOSKELETAL: Right BKA NEURO: Awake; no lateralizing signs. SKIN: stasis dermatitis PSYCH; Flat affect - Physical Exam Vitals/I&O's: Vital Signs Temp Pulse Resp BP Pulse Ox 99.8 F H 79 14 126/73 H 95 07/09/20 09:47 07/09/20 14:57 07/09/20 09:47 07/09/20 14:24 07/09/20 09:47 Oxygen Delivery Method Room Air Weight: 151.6 kg Body Mass Index (BMI) 44.1 Finger Stick Blood Glucose 77 Intake and Output for Last 24 Hours 07/07/20 07/08/20 07/09/20 23:59 23:59 23:59 Intake Total 120 / 120 360 / 360 800 / 800 Output Total 750 / 750 1700 / 1700 1000 / 1000 Balance -630 / -630 -1340 / -1340 -200 / -200 Laboratory Results 07/08/20 16:38: Urine Color Yellow, Urine Clarity Sl. Cloudy, Urine pH 6.0, Ur Specific [place] 1.015, Urine Protein 30 H, Urine Glucose (UA) Normal, Urine Ketones Negative, Urine Occult Blood Negative, Urine Nitrite Negative, Urine Bilirubin Negative, Urine Urobilinogen Normal, Ur Leukocyte Esterase Negative 07/08/20 16:52: POC Glucose 167 H 07/08/20 22:07: POC Glucose 164 H 07/09/20 05:29: PT 23.4 H, INR 2.1 07/09/20 05:29: WBC 4.4, RBC 3.17 L, Hgb 8.7 L, Hct 29.7 L, MCV 93.7, MCH 27.4, MCHC 29.3 L, RDW Std Deviation 74.8 H, RDW Coeff of Yoandy 22.3 H, Plt Count , MPV 11.1, Differential Comment 07/09/20 05:29: Sodium 141, Potassium 4.0, Chloride 109 H, Carbon Dioxide 27.0, Anion Gap 5, BUN 79 H, Creatinine 2.50 H, Estim Creat Clear Calc 28.84, Est GFR (MDRD) Af Amer 25 L, Est GFR (MDRD) Non-Af 21 L, BUN/Creatinine Ratio 31.6 H, Glucose 131 H, Calcium 8.4 L, Magnesium 2.3 07/09/20 06:46: POC Glucose 137 H 07/09/20 10:19: COVID-19 (FELICIA) Pending 07/09/20 11:11: POC Glucose 193 H Current Medications Acetaminophen (Tylenol) 650 mg PO Q6H PRN PRN PRN Reason: Pain Score 1-10/Temp > 100.7 F Al Hydroxide/Mg Hydroxide (Mylanta Ii) 30 ml PO Q6H PRN PRN PRN Reason: Gastric Burning Albuterol Sulfate (Ventolin Aerosols) 2.5 mg INHALATION Q2H PRN PRN PRN Reason: SOB/Wheezing Aspirin (Aspirin, Baby) 81 mg PO DAILY@0800 [facility] Last Admin: 07/09/20 09:04 Dose: 81 mg Documented by: Atorvastatin Calcium (Lipitor) 40 mg PO QHS [facility] Last Admin: 07/08/20 22:15 Dose: 40 mg Documented by: Bisacodyl (Dulcolax) 10 mg PO DAILY PRN PRN PRN Reason: Constipation Bupropion HCl (Wellbutrin Sr (150mg Tablets)) 150 mg PO BID [facility] Last Admin: 07/09/20 09:06 Dose: 150 mg Documented by: Carvedilol (Coreg) 25 mg PO BID [facility] Last Admin: 07/09/20 09:05 Dose: 25 mg Documented by: Docusate Sodium (Colace) 200 mg PO BID [facility] Last Admin: 07/09/20 09:05 Dose: 200 mg Documented by: Furosemide (Lasix) 40 mg IV Q8 [facility] Last Admin: 07/09/20 14:41 Dose: 40 mg Documented by: Gabapentin (Neurontin) 600 mg PO TID [facility] Last Admin: 07/09/20 14:24 Dose: 600 mg Documented by: Hydralazine HCl (Apresoline) 25 mg PO TID [facility] Last Admin: 07/09/20 14:24 Dose: 25 mg Documented by: Insulin Glargine (Lantus ([facility])) 45 units SC QHS [facility] Last Admin: 07/08/20 22:17 Dose: 45 units Documented by: Insulin Human Lispro (Humalog Kwikpen ([facility])) 0 unit SC [facility]; Protocol Last Admin: 07/09/20 11:12 Dose: 2 units Documented by: Isosorbide Mononitrate (Imdur) 30 mg PO DAILY [facility] Last Admin: 07/09/20 09:05 Dose: 30 mg Documented by: Nystatin (Mycostatin Powder) 1 applic TOPICAL BID [facility]; Protocol Last Admin: 07/09/20 09:06 Dose: 1 applic Documented by: Nystatin/Triamcinolone Acetonide (Mycolog) 1 applic TOPICAL BID [facility]; Protocol Last Admin: 07/09/20 09:06 Dose: 1 applicatio Documented by: Ondansetron HCl (Zofran) 4 mg IV Q8H PRN PRN PRN Reason: NAUSEA/VOMITING Pantoprazole Sodium (Protonix) 40 mg PO DAILY [facility] Last Admin: 07/09/20 09:05 Dose: 40 mg Documented by: Polyethylene Glycol (Miralax) 17 gm PO DAILY [facility] Last Admin: 07/09/20 09:07 Dose: Not Given Documented by: Potassium [facility] ([facility]) [facility] Last Admin: 07/09/20 09:04 Dose: 20 meq Documented by: Sodium Chloride () 10 - 40 ml IV UD PRN PRN Reason: SALINE FLUSH Last Admin: 07/09/20 06:49 Dose: 10 ml Documented by: Warfarin Sodium (Jantoven) 2.5 mg PO QODAY@1700 [facility] Last Admin: 07/08/20 16:54 Dose: 2.5 mg Documented by: Warfarin Sodium (Jantoven) 5 mg PO QODAY@1700 [facility] Last Admin: 07/07/20 18:54 Dose: 5 mg Documented by: Discharge Diet: 8 Cup Fluid Restriciton Discharge Activity: Return to Normal Activity Home Medications: Medications to take at Discharge Albuterol IH (ProAir) [Proair Hfa] 2 puff INHALATION Q4H PRN PRN 07/19/13 Nitroglycerin [Nitrostat] 0.4 mg SL PRN PRN 07/19/13 Warfarin [Coumadin] 5 mg PO QODAY 07/19/13 Atorvastatin Calcium [Lipitor] 40 mg PO QHS 06/02/15 Esomeprazole Mag Trihydrate [Nexium] 40 mg PO DAILY 06/02/15 Gabapentin [Neurontin] 600 mg PO TID 06/02/15 Carvedilol [Coreg (Beta Yamilka)] 25 mg PO BID 07/07/17 Aspirin [Aspirin, Baby] 81 mg PO DAILY@0800 08/15/17 Furosemide 80 mg PO BREAKFAST 03/06/19 Isosorbide Mononitrate [Imdur] 30 mg PO DAILY #30 tablet 03/10/19 Ondansetron [Zofran Odt] 4 mg PO Q8H PRN PRN #10 tab 03/22/19 Allopurinol 300 mg PO DAILY 11/04/19 Insulin Glargine,Hum.rec.anlog [Lantus] 45 unit SQ QHS 11/04/19 Bupropion HCl [Bupropion Xl] 150 mg PO DAILY 07/07/20 Bupropion HCl [Bupropion Xl] 300 mg PO DAILY 07/07/20 Furosemide [Lasix] 40 mg PO DAILY@1200 07/07/20 Hydralazine HCl 25 mg PO TID 07/07/20 Warfarin [Coumadin] 2.5 mg PO QODAY 07/07/20 Acetaminophen [Tylenol Tablet] 650 mg PO Q6H PRN PRN tab 07/09/20 Albuterol Aerosols [Ventolin Aerosols] 2.5 mg INHALATION Q2H PRN PRN vial.neb. 07/09/20 Bisacodyl [Dulcolax] 10 mg PO DAILY PRN PRN #0 tab 07/09/20 Docusate Sodium [Colace] 200 mg PO BID cap 07/09/20 Mag Hydrox/Al Hydrox/Simeth [Mylanta II] 30 ml PO Q6H PRN PRN udc 07/09/20 Nystatin Powder [Mycostatin Powder] 1 applic TOPICAL BID bottle 07/09/20 Nystatin/Triamcin Cream [Mycolog] 1 applic TOPICAL BID tube 07/09/20 Polyethylene Glycol 3350 [Miralax] 17 gm PO DAILY packet 07/09/20 Potassium Chloride [K-Dur] 20 meq PO BIDCM tab 07/09/20 Primary Care Physician: Leslie Bird MD [Primary Care Provider] - Please follow up with your Primary Care Physician in: in 1-2 weeks Please Follow Up With: Aydee Wallace MD When: in 2-4 weeks Disposition: [facility] facility Minutes spent on discharge:: 35 Patient Condition:: Stable Medical Necessity - Tobacco Use Smoking Status: Former smoker Tobacco Use: Non-smoker Meaningful Use Info Meaningful Use Diagnoses (Choose all that apply): CHF - CHF ZACHARY/ARB ordered at discharge?: No Reason ZACHARY/ARB not ordered?: Worsening renal disease Documented LVEF (%): 25 Inpatient E&M: 79000 Disch Hosp
--- NOTE | 2020-07-09 16:46 | CASEMGMT ---
Addendum entered by Bertha Allen 07/09/20 16:50: VM left with Tatyana Maria CM at [facility] home and discharge summary faxed. KARISSA Henriquez Original Note: Social Work Return call from [facility] and precert has been obtained. Physician notified and plans to d/c pt this afternoon. SW met with pt and informed. Pt stating that a friend is bringing her power wheelchair to the hospital and that pt cannot leave until it gets here. SW spoke with [facility] and they can transport pt to [facility] in Wheelchair Van with pt utilizing her own power chair. Pt placed in Will Call with physicians. pt instructed to notify nurse when chair arrives. Nursing to call [facility] and set time for d/c. Orders and negative covid test faxed to [facility]. PassRR completed. Phone call to Naina at [facility] and updated on discharge plan. RN aware. KARISSA Henriquez
== END 2020-07-09 15:58 | disposition skilled nursing facility (03) ==
LOC: ED 15:03 → PCU 16:44
PROVIDERS: Internal Medicine Nephrology; Admitting Provider Internal Medicine; Emergency Provider Emergency Medicine; PCP Internal Medicine; Visit Provider Internal Medicine
DX: I13.0 Hypertensive heart and chronic kidney disease with heart failure and stage 1 through stage 4 chronic kidney disease, or unspecified chronic kidney disease (principal); E11.22 Type 2 diabetes mellitus with diabetic chronic kidney disease; I50.33 Acute on chronic diastolic (congestive) heart failure; N18.30 Chronic kidney disease, stage 3 unspecified; B88.8 Other specified infestations; N17.9 Acute kidney failure, unspecified; E78.5 Hyperlipidemia, unspecified; J44.9 Chronic obstructive pulmonary disease, unspecified; I25.10 Atherosclerotic heart disease of native coronary artery without angina pectoris; I25.5 Ischemic cardiomyopathy; E66.01 Morbid (severe) obesity due to excess calories; K21.9 Gastro-esophageal reflux disease without esophagitis; L89.312 Pressure ulcer of right buttock, stage 2; M10.9 Gout, unspecified; I48.0 Paroxysmal atrial fibrillation; D69.6 Thrombocytopenia, unspecified; D64.9 Anemia, unspecified; F41.8 Other specified anxiety disorders; Z86.718 Personal history of other venous thrombosis and embolism; Z79.899 Other long term (current) drug therapy; Z79.82 Long term (current) use of aspirin; Z95.0 Presence of cardiac pacemaker; Z68.41 Body mass index [BMI] 40.0-44.9, adult; Z89.611 Acquired absence of right leg above knee; Z86.73 Personal history of transient ischemic attack (TIA), and cerebral infarction without residual deficits
CPT/HCPCS: 36415; 71045; 80048; 81002; 82962; 83735; 83880; 84484; 85025; 85027; 85610; 87635; 93005; 93306; 93971; 96374; 96376; 97162; 97166; 99218; 99285; Q9957; A4216; G0378; J1940; U0003

== ENCOUNTER 2020-08-09 11:53 | Inpatient (IN) | payer MEDICARE, MEDICAID, SELFPAY ==
[2020-07-07 14:27] VITALS: BMI 44.1
[2020-08-09] VITALS (15 sets, daily range): BP systolic 99–157; BP diastolic 39–84; PULSE 78–82; RESP 12–20; TEMP 36.3–36.9; O2SAT 91–98; BMI 51.2
--- NOTE | 2020-08-09 12:44 | EKG12_ITS ---
Test Reason : CONFUSION Blood Pressure : / mmHG Vent. Rate : 079 BPM Atrial Rate : 083 BPM P-R Int : 000 ms QRS Dur : 212 ms QT Int : 508 ms P-R-T Axes : 000 241 041 degrees QTc Int : 582 ms Suspect unspecified pacemaker failure Ventricular-paced rhythm Abnormal ECG Confirmed by LIO LOPEZ, HINA ([id number]), metropolitan editor ARON RAPHAEL ([id number]) on 08/11/2020 8:50:46 AM Referred By: BB Confirmed By:HINA VACA MD
--- NOTE | 2020-08-09 12:44 | RAD_ITS ---
STUDY: X-RAY CHEST REASON FOR EXAM: Female, 60 years old. LOW PO2, CONFUSION TECHNIQUE: Single AP portable view of the chest. COMPARISON: Comparison is made with prior study dated 07/07/2020. FINDINGS: EKG electrodes are seen. Since prior examination, there has been progressive lateral pulmonary infiltrates worse in the left lower lobe. There is blunting of both costophrenic angles more prominent on the left side. This is superimposed on vascular congestion. There is moderate cardiac enlargement. A left-sided dual-chamber pacemaker is seen. Normal mediastinum and bridgett. Normal visualized pulmonary arteries. There is atherosclerotic calcification of the aortic arch with tortuosity. There are diffuse degenerative changes of the visualized thoracic spine. Normal visualized ribs, clavicles, and shoulders. There is no demonstrated abnormality of the visualized soft tissue structures of the upper abdomen. RAD/Chest 1 View (Portable) IMPRESSION: Progressive bilateral infiltrates superimposed on mild degree of CHF. Blunting of both costophrenic angles. Electronically Signed: Willi Pittman, at 13:05 EST , Service support ,
--- NOTE | 2020-08-09 12:45 | ED.VIS.GEN ---
History of Present Illness Chief Complaint: Confusion Informant: Patient, SNF Onset: - - unk Context: - - unk Timing: Continuous Quality: malaise/weak Location: all over Current Severity: Severe Maximum Severity: Severe Worsened by: unk Relieved by: unk Associated Symptoms: RLE pain. low pulse ox. mild sob. Narrative: Limited evaluation due to patient not feeling well and not wanting to answer questions, condition, limited information from SNF. Patient is DNR [facility], history of a stroke of unknown symptoms, she presents with hypoxemia, she is not usually on oxygen, she feels a little short of breath, and she states that her right leg is been hurting she does not know how long but not long. She denies any injuries. She denies chest pain, abdominal pain. SNF said she was confused and is at baseline alert and oriented x3. - Past Medical History (1) Anemia Status: Chronic (2) Asthma Status: Chronic (3) Atrial fibrillation Status: Chronic (4) CKD (chronic kidney disease) stage 3, GFR 30-59 ml/min Status: Chronic (5) COPD (chronic obstructive pulmonary disease) Status: Chronic (6) Chronic renal insufficiency Status: Chronic (7) Diabetes mellitus Status: Chronic Comment: type II (8) HLD (hyperlipidemia) Status: Chronic (9) History of DVT of lower extremity Status: Chronic (10) Hypothyroidism Status: Chronic (11) Ischemic cardiomyopathy Status: Chronic (12) Morbid obesity Status: Chronic (13) CVA (cerebral vascular accident) Status: Resolved Comment: 2001 Past Medical History - Allergies and Home Meds Allergies/Adverse Reactions: Allergies codeine Allergy (Verified 07/07/20 14:29) Rash latex Allergy (Verified 07/07/20 14:29) Itching Penicillins Allergy (Verified 07/07/20 14:29) Swelling dexamethasone [From Maxidex] Adverse Reaction (Verified 07/07/20 14:29) Unknown iodine Adverse Reaction (Verified 07/07/20 14:29) Itching morphine Adverse Reaction (Verified 07/07/20 14:29) Other contrast dye Allergy (Uncoded 07/07/20 14:29) GI upset GI upset Surgical History: adenoidectomy, cholecystectomy, hysterectomy, tonsillectomy, - - Right [id number] amputation, panniculectomy, pacemaker placement, left leg vein grafting/bypass. Lives: Group Home Smoking Status: Former smoker - Family History Maternal Family History: Reports: Diabetes, Heart Disease, Hypertension Paternal Family History: Reports: Heart Disease, - - Mesothelioma. Review of Systems ROS: Unable to Obtain - Limited eval. See below. General: Reports: Malaise. Denies: Chills Eyes: Denies: Visual changes - bilaterally, Diplopia ENT: Denies: Bilateral ear pain, Sore throat Cardiovascular: Denies: Chest pain, Palpitations Respiratory: Reports: Dyspnea. Denies: Cough Gastrointestinal: Denies: Abdominal pain, Nausea, Vomiting, Diarrhea Musculoskeletal: Reports: Myalgias, Extremity Pain Skin: Denies: Rash, Wounds Neurological: Denies: Headache Physical Exam Vital Signs/Narrative: Vital Signs Temp Pulse Resp BP Pulse Ox 08/09/20 12:00 95 08/09/20 11:55 98.3 F 80 15 133/67 H 91 Inital Vital Signs reviewed: Yes General: Well nourished, Well developed, Obese - Morbidly, No Acute Distress - Ill-appearing, moaning Head: Normocephalic, Atraumatic Eyes: Perrl, EOMI ENT: Moist mucous membranes, No rhinorrhea Neck: Supple, Nontender Cardiovascular: Regular rate, Regular rhythm, No murmurs Respiratory: No distress, CTA bilaterally, Chest nontender Abdomen: Soft, Nontender, Nondistended, Normal bowel sounds, - - Limited exam due to morbid obesity. Back: Nontender, Normal Inspection Extremities: Tenderness - Right lower extremity. See below. Nontender left lower extremity, Edema - Both lower extremities Skin: Normal color, Rash - Light blanching erythema throughout the anterior aspect of the right lower extremity which is status post AKA, tender, the stump surgical wound is benign-appearing without any drainage Neurological: Alert, Oriented x3 - Once patient is able to answer questions, she answers appropriately and does not disoriented, Cranial nerves II-XII grossly intact, Normal Strength, Normal Sensation Psychological: Normal affect, Normal Mood Diagnostic/Tx/Re-eval Impressions Chest X-Ray 08/09/20 12:44 IMPRESSION: Progressive bilateral infiltrates superimposed on mild degree of CHF. Blunting of both costophrenic angles. Electronically Signed: Willi Pittman, at 13:05 EST , Service support , 08/09/20 12:44 Chest 1 View (Portable) [RAD] Stat Laboratory Tests 08/09/20 08/09/20 08/09/20 Range/Units 13:10 12:30 12:30 WBC (4.4-11.0) K/mm3 RBC (4.2-5.4) M/mm3 Hgb (12.0-15.0) g/dL Hct (37-47) % MCV (81-99) fL MCH (27.0-32.0) pg MCHC (32-36) g/dL RDW Std Deviation (35.1-43.9) fl RDW Coeff of Yoandy (11.6-14.6) % Plt Count (150-450) K/mm3 MPV (6.2-12.0) fl Immature Gran % (Auto) (0.0-0.9) % Neut % (Auto) (47-70) % Lymph % (Auto) (19-41) % [place] % (Auto) (0-10) % Eos % (Auto) (0-5) % Baso % (Auto) (0-1) % Absolute Neuts (auto) (2.0-7.7) X10^3/uL Absolute Lymphs (auto) (0.83-4.51) X10^3/uL Nucleated RBC % (0-5) % Differential Comment Platelet Estimate (ADEQ) RBC Morphology (NORM C&C) NORMAL Anisocytosis PT (11.7-14.9) SECONDS INR APTT (24.1-36.2) Seconds Sodium 134 L (136-145) mmol/L Potassium 5.3 H (3.5-5.1) mmol/L Chloride 102 (98-107) mmol/L Carbon Dioxide 27.0 (21.0-32.0) mmol/L Anion Gap 5 (5-15) BUN 98 H (7-18) mg/dL Creatinine 2.99 H (0.55-1.02) mg/dL Estim Creat Clear Calc 24.11 ml/min Est GFR (MDRD) Af Amer 21 L (>60) mL/min Est GFR (MDRD) Non-Af 17 L (>60) mL/min BUN/Creatinine Ratio 32.8 H (10-20) RATIO Glucose 107 H (74-106) mg/dL Lactic Acid 1.3 (0.4-1.9) mmol/L Calcium 8.6 (8.5-10.1) mg/dL Total Bilirubin 1.10 H (0.20-1.00) mg/dL AST 23 (15-37) U/L ALT 15 (13-56) U/L Alkaline Phosphatase 160 H (45-117) U/L Troponin I 0.037 (<0.045) ng/mL Total Protein 7.0 (6.4-8.2) g/dL Albumin 2.3 L (3.2-5.0) g/dL Globulin 4.7 H (2.2-4.2) g/dL Albumin/Globulin Ratio 0.5 L (0.9-2.4) RATIO Urine Color Yellow (Yellow) Urine Clarity Sl. Cloudy (Clear) Urine pH 5.0 (5.0 - 8.0) Ur Specific [place] 1.015 (1.002-1.030) Urine Protein 30 H (Negative) mg/dl Urine Glucose (UA) Normal (Normal) mg/dl Urine Ketones Negative (Negative) mg/dl Urine Occult Blood Negative (Negative) /ul Urine Nitrite Negative (Negative) Urine Bilirubin Negative (Negative) mg/dL Urine Urobilinogen Normal (Normal) mg/dl Ur Leukocyte Esterase 25 H (Negative) /ul Urine RBC 0 SEEN (0-5) /hpf Urine WBC 0 SEEN (0-5) /hpf Ur Squamous Epith Cells 0 SEEN (5-10) /hpf Urine Bacteria 2+ (None Seen) /hpf Urine Mucus 0 SEEN (<or=2+) /hpf 08/09/20 08/09/20 Range/Units 12:30 12:30 WBC 8.7 (4.4-11.0) K/mm3 RBC 3.28 L (4.2-5.4) M/mm3 Hgb 9.0 L (12.0-15.0) g/dL Hct 30.1 L (37-47) % MCV 91.8 (81-99) fL MCH 27.4 (27.0-32.0) pg MCHC 29.9 L (32-36) g/dL RDW Std Deviation 69.0 H (35.1-43.9) fl RDW Coeff of Yo[place] 20.8 H (11.6-14.6) % Plt Count 72 L (150-450) K/mm3 MPV 12.7 H (6.2-12.0) fl Immature Gran % (Auto) 0.500 (0.0-0.9) % Neut % (Auto) 87.8 H (47-70) % Lymph % (Auto) 6.1 L (19-41) % [place] % (Auto) 5.6 (0-10) % Eos % (Auto) 0.0 (0-5) % Baso % (Auto) 0.0 (0-1) % Absolute Neuts (auto) 7.7 (2.0-7.7) X10^3/uL Absolute Lymphs (auto) 0.53 L (0.83-4.51) X10^3/uL Nucleated RBC % 0 (0-5) % Differential Comment Platelet Estimate MOD DEC (ADEQ) RBC Morphology N CHROM (NORM C&C) NORMAL Anisocytosis 1+ PT 25.5 H (11.7-14.9) SECONDS INR 2.4 APTT 44.3 H (24.1-36.2) Seconds Sodium (136-145) mmol/L Potassium (3.5-5.1) mmol/L Chloride (98-107) mmol/L Carbon Dioxide (21.0-32.0) mmol/L Anion Gap (5-15) BUN (7-18) mg/dL Creatinine (0.55-1.02) mg/dL Estim Creat Clear Calc ml/min Est GFR (MDRD) Af Amer (>60) mL/min Est GFR (MDRD) Non-Af (>60) mL/min BUN/Creatinine Ratio (10-20) RATIO Glucose (74-106) mg/dL Lactic Acid (0.4-1.9) mmol/L Calcium (8.5-10.1) mg/dL Total Bilirubin (0.20-1.00) mg/dL AST (15-37) U/L ALT (13-56) U/L Alkaline Phosphatase (45-117) U/L Troponin I (<0.045) ng/mL Total Protein (6.4-8.2) g/dL Albumin (3.2-5.0) g/dL Globulin (2.2-4.2) g/dL Albumin/Globulin Ratio (0.9-2.4) RATIO Urine Color (Yellow) Urine Clarity (Clear) Urine pH (5.0 - 8.0) Ur Specific [place] (1.002-1.030) Urine Protein (Negative) mg/dl Urine Glucose (UA) (Normal) mg/dl Urine Ketones (Negative) mg/dl Urine Occult Blood (Negative) /ul Urine Nitrite (Negative) Urine Bilirubin (Negative) mg/dL Urine Urobilinogen (Normal) mg/dl Ur Leukocyte Esterase (Negative) /ul Urine RBC (0-5) /hpf Urine WBC (0-5) /hpf Ur Squamous Epith Cells (5-10) /hpf Urine Bacteria (None Seen) /hpf Urine Mucus (<or=2+) /hpf - Rhythm Strip Rhythm Strip: Sinus Rhythm Rate: 80 Ectopy: None - EKG Initial EKG Interpretation: No Acute Injury Pattern, RBBB, - - EKG shows a wide complex, difficult to see P waves and may be wilman or accelerated ventricular rhythm Prior: Unchanged - Medical Decision Making Patient appears to have bilateral infiltrates. Unknown if she was tested for Covid at the senior living, so we are sending that it is pending. She was hypoxic, but on a nasal cannula she is not. She is ill-appearing but stable clinically and hemodynamically. Antibiotics are started, and will also treat her for hyperkalemia given her potassium of 5.3 and wide-complex on EKG with undetermined actual rhythm, although it appears that she has an old right bundle branch block. She is a little more lethargic on reevaluation so she was not given the Kayexalate, and an ABG was obtained. It shows a pH 7.41, PCO2 38.4, PO2 67.3 with a normal bicarb, which is reassuring. Plan is for admission. Antibiotics were started, cultures are obtained. Her Covid returned negative. However, she became more lethargic, despite her ABG looking very good. She had a couple of blood pressures that were in the 90s, but even with being very lethargic and not arousable to sternal rub with a fairly thready radial pulse but warm distal extremities, she had blood pressure 101/64. She does have a gag reflex and withdraws to attempts to test it. She is DNR [facility], we attempted to discuss with family/power of biofuels production associate, however we were able to reach no one. Paperwork signed from the senior living indicates no airway adjuncts/intubation. I put her on BiPAP to see if that helps, ordered some fluid, she had already had her hyperkalemia treated, it was very low and not likely to be the source of her unresponsiveness. I sent her for CT head as well, on my interpretation it is negative for anything acute, showing stable right temporoparietal encephalomalacia due to old stroke. I updated hospitalist. Will be admitted to PCU. - Critical Care Time Critical care time (excluding procedures): 30-74 minutes, Including time spent:, Discussing w/Consultants, Arranging Admission or Transfer, Performing Direct Patient Care at Bedside ED Disposition - Plan for ED Patient: Disposition: Acute Care Hospital [facility] Diagnosis: Healthcare-associated pneumonia, CKD (chronic kidney disease) stage 3, GFR 30-59 ml/min, Hyperkalemia, Acute respiratory failure with hypoxia
[2020-08-09 13:02] LABS: Absolute Lymphocyte Count 0.53 X10^3/uL (0.83-4.51); Absolute Neutrophil Count 7.7 X10^3/uL (2.0-7.7); Hematocrit 30.1 % (37-47); Lymphocyte # 0.53 X10^3/ul (4.0); Lymphocyte % 6.1 % (19-41); Mean Corp Hgb Conc 29.9 g/dL (32-36); Mean Corpuscular Hgb 27.4 pg (27.0-32.0); Mean Corpuscular Volume 91.8 fL (81-99); Mean Platelet Vol. 12.7 fl (6.2-12.0); Monocyte# 0.49 X10^3/uL; Monocyte% 5.6 % (0-10); NRBC Flagged by Analyzer 0 % (0-5); Neutrophil # 7.65 X10^3/uL (2.7-7.7); Neutrophil % 87.8 % (47-70); POSITIVE COUNT YES; POSITIVE DIFFERENTIAL YES; POSITIVE MORPHOLOGY YES; Platelet Count 72 K/mm3 (150-450); RBC Distribution Width CV 20.8 % (11.6-14.6); Red Blood Count 3.28 M/mm3 (4.2-5.4); White Blood Count 8.7 K/mm3 (4.4-11.0)
[2020-08-09 13:12] LABS: International Normalized Ratio 2.4; Prothrombin Time (Protime)PT. 25.5 SECONDS (11.7-14.9)
[2020-08-09 13:13] LABS: Partial Thromboplast Time 44.3 Seconds (24.1-36.2)
[2020-08-09 13:18] LABS: Differential Indicated SCAN CRITERIA MET
[2020-08-09 13:19] LABS: Lactic Acid 1.3 mmol/L (0.4-1.9)
[2020-08-09 13:20] LABS: Mucous, Urine 0 SEEN /hpf (<or=2+); Red Blood Cells-Urine 0 SEEN /hpf (0-5); Squamous Epithelial Cells - UA 0 SEEN /hpf (5-10); White Blood Cells 0 SEEN /hpf (0-5)
[2020-08-09 13:20] LABS: ALB/GLOB Ratio 0.5 RATIO (0.9-2.4); AST(SGOT) 23 U/L (15-37); Alanine Aminotransfer ALT/SGPT 15 U/L (13-56); Albumin, Serum 2.3 g/dL (3.2-5.0); Alkaline Phosphatase 160 U/L (45-117); Anion Gap 5 (5-15); BUN 98 mg/dL (7-18); BUN/Creat Ratio 32.8 RATIO (10-20); Calcium,Total 8.6 mg/dL (8.5-10.1); Chloride 102 mmol/L (98-107); Creatinine, Serum 2.99 mg/dL (0.55-1.02); EST Glomerular Filtration Rate 17 mL/min (>60); Est Glom Filt Rate - Afr Amer 21 mL/min (>60); Estimated Creatinine Clearance 24.11 ml/min; Globulin 4.7 g/dL (2.2-4.2); Glucose 107 mg/dL (74-106); Potassium 5.3 mmol/L (3.5-5.1); Sodium Level 134 mmol/L (136-145)
[2020-08-09 13:28] LABS: Color, Urine Yellow (Yellow); Glucose, Dipstick Normal (Normal); Ketone-Dipstick Negative (Negative); Leukocyte Esterase-Dipstick 25 /ul (Negative); Nitrite-Dipstick Negative (Negative); Occult Blood-Urine Negative /ul (Negative); Protein-Dipstick 30 mg/dl (Negative); Specific Gravity, Urine 1.015 (1.002-1.030); Urine Bilirubin Dipstick Negative (Negative); Urine Clarity Sl. Cloudy (Clear); Urine Urobilinogen Normal (Normal)
[2020-08-09 13:36] LABS: Bacteria 2+ /hpf (None Seen)
[2020-08-09 13:37] LABS: Anisocytosis 1+; Platelet Estimate MOD DEC (ADEQ); Red Cell Morphology N CHROM NORMAL (NORM C&C)
[2020-08-09] MEDS: Albuterol 2.5 MG/3 ML VIAL.NEB. INHALATION (14:00)
[2020-08-09] MEDS: Insulin Lispro 5 UNIT in Syringe 0 ML 3 UNIT IV (14:16)
[2020-08-09] MEDS: Dextrose 50%-Water 25 GM/50 ML DISP.SYRIN IV (14:17)
[2020-08-09] MEDS: Calcium Gluconate 1 GM/10 ML Vial IV (14:20)
[2020-08-09 15:21] LABS: Base Excess 0 mmol/L (-2 to +2); Bicarbonate 24.6 mmol/L (22-26); Blood Gas Specimen Type ART; O2 Delivery Device Cannula; PO2 67 mmHG (75-100); SITE L Radial; SO2 93 % (95-99); Total Carbon Dioxide 26 mmol/L; pCO2 38.4 mmHg (35-45); pH 7.41 (7.35-7.45)
--- NOTE | 2020-08-09 15:33 | ED.RN ---
PT CONTINUES MOANING AND INTERMITTENTLY SOBBING, CONTINUES TO DENY PAIN, DENIES NAUSEA, ADMITS TO SOB AT TIMES. DIFFICULT TO REDIRECT.
--- NOTE | 2020-08-09 16:39 | CT_ITS ---
STUDY: CT BRAIN WITHOUT CONTRAST REASON FOR EXAM: Female, 60 years old. Altered mental status. RADIATION DOSAGE (If Supplied By Facility): CTDIvol = ( 44.99 ) mGy, DLP = ( 1760.95 ) mGycm TECHNIQUE: Transaxial CT imaging of the brain was performed without administration of intravenous contrast material. Individualized dose optimization techniques were used for this CT. COMPARISON: 04/21/2019 FINDINGS: Normal soft tissue structures. Normal calvarium. Normal size ventricles and extra-axial spaces for the patient''s age. There is large area of encephalomalacia in the right temporoparietal region, consistent with remote MCA infarct. Otherwise normal white matter tracts of the cerebral hemispheres. Normal basal ganglia and thalami. Normal brainstem. Normal cerebellum. There is no intracranial hemorrhage. There are no findings of an acute ischemic infarction. Normal visualized paranasal sinuses. CT/Brain/Head without Contrast IMPRESSION: No acute intracranial or calvarial abnormality. There is no interval change. Electronically Signed: Vasquez Degroot DO at 18:31 EST Tel [phone], Service support ,
--- NOTE | 2020-08-09 18:15 | HP.PCM_ITS ---
<Zuleyka Watt MANAGER COMBINATION - Last Filed: 08/09/20 19:04> Problem List (1) Heart failure Status: Chronic (2) Infestation by bed bug Status: Resolved (3) Anemia Status: Chronic (4) Thrombocytopenia Status: Chronic (5) MAX (acute kidney injury) Status: Acute (6) CKD (chronic kidney disease) stage 3, GFR 30-59 ml/min Status: Chronic (7) Healthcare-associated pneumonia Status: Acute (8) Hyperkalemia Status: Acute (9) Acute respiratory failure with hypoxia Status: Acute (10) Asthma Status: Chronic (11) CVA (cerebral vascular accident) Status: Chronic Comment: 2001 (12) COPD (chronic obstructive pulmonary disease) Status: Chronic (13) History of PTCA Status: Chronic Comment: Mid LAD bare metal stent 07/20/2002. RCA Bare metal stent 07/02/2006 (14) History of permanent cardiac pacemaker placement Status: Chronic Comment: 09/08/2013,[facility] Dr[facility] (15) Above knee amputation of right lower extremity Status: Chronic (16) History of tonsillectomy Status: Chronic (17) H/O: hysterectomy Status: Chronic (18) History of cholecystectomy Status: Chronic (19) H/O adenoidectomy Status: Chronic (20) HLD (hyperlipidemia) Status: Chronic (21) Coronary artery disease Status: Chronic (22) Hypothyroidism Status: Chronic (23) Atrial fibrillation Status: Chronic (24) Ischemic cardiomyopathy Status: Chronic (25) Diabetes mellitus Status: Chronic Comment: type II (26) Morbid obesity Status: Chronic (27) History of DVT of lower extremity Status: Chronic (28) Tobacco abuse Status: Chronic History of Present Illness Date of Admission: 08/09/20 Chief Complaint: Confusion. The patient is a 60 year old F who presents emergency room from SNF due to confusion, lethargy. Unable to obtain HPI from patient due to confusion. Patient opens her eyes however does not respond verbally, making grunting noises and moving around in bed. Patient noted to be hypoxic in the emergency room. Covid test returned negative. She was initiated on antibiotics for healthcare associated pneumonia. Per history, she has a past medical history of chronic kidney disease stage IV, CAD with history of stents, history of ischemic cardiomyopathy, type 2 diabetes mellitus, paroxysmal atrial fibrillation, history of DVT, hypothyroidism, hypertension, hyperlipidemia, GERD, depression/anxiety, history of tobacco dependence, marijuana use, status post right clczc-wia-ydli amputation, status post pacemaker placement, obesity, history of left lower extremity vein grafting/bypass, chronic normocytic anemia. Past Medical History Past Medical History (Chronic Problems): Chronic Problems (Last Updated 03/27/19 @ 10:15 by Susana Govea) Heart failure (Chronic) Anemia (Chronic) Thrombocytopenia (Chronic) CKD (chronic kidney disease) stage 3, GFR 30-59 ml/min (Chronic) Asthma (Chronic) CVA (cerebral vascular accident) (Chronic) 2001 COPD (chronic obstructive pulmonary disease) (Chronic) History of PTCA (Chronic) Mid LAD bare metal stent 07/20/2002. RCA Bare metal stent 07/02/2006 History of permanent cardiac pacemaker placement (Chronic) 09/08/2013,[facility] Dr[facility] Wilkins [facility] Above knee amputation of right lower extremity (Chronic) History of tonsillectomy (Chronic) H/O: hysterectomy (Chronic) History of cholecystectomy (Chronic) H/O adenoidectomy (Chronic) HLD (hyperlipidemia) (Chronic) Coronary artery disease (Chronic) Hypothyroidism (Chronic) Atrial fibrillation (Chronic) Ischemic cardiomyopathy (Chronic) Diabetes mellitus (Chronic) type II Morbid obesity (Chronic) History of DVT of lower extremity (Chronic) Tobacco abuse (Chronic) Medical History: Medical History (Last Updated 03/27/19 @ 10:15 by Susana Govea) Asthma (Chronic) J45.909 CVA (cerebral vascular accident) (Chronic) I63.9 2001 COPD (chronic obstructive pulmonary disease) (Chronic) J44.9 Above knee amputation of right lower extremity (Chronic) Z89.611 HLD (hyperlipidemia) (Chronic) E78.5 Coronary artery disease (Chronic) I25.10 Hypothyroidism (Chronic) E03.9 Atrial fibrillation (Chronic) I48.91 Ischemic cardiomyopathy (Chronic) I25.5 Diabetes mellitus (Chronic) E11.9 type II Morbid obesity (Chronic) E66.01 Allergies codeine Allergy (Verified 07/07/20 14:29) Rash latex Allergy (Verified 07/07/20 14:29) Itching Penicillins Allergy (Verified 07/07/20 14:29) Swelling dexamethasone [From Maxidex] Adverse Reaction (Verified 07/07/20 14:29) Unknown iodine Adverse Reaction (Verified 07/07/20 14:29) Itching morphine Adverse Reaction (Verified 07/07/20 14:29) Other contrast dye Allergy (Uncoded 07/07/20 14:29) GI upset GI upset Home Medications: Ambulatory Orders Medication Instructions Recorded Nitroglycerin [Nitrostat] 0.4 mg SL PRN PRN 07/19/13 Atorvastatin Calcium [Lipitor] 40 mg PO QHS 06/02/15 Gabapentin [Neurontin] 600 mg PO TID 06/02/15 Carvedilol [Coreg (Beta Yamilka)] 25 mg PO BID 07/07/17 Aspirin [Aspirin, Baby] 81 mg PO DAILY@0800 08/15/17 Furosemide 80 mg PO BREAKFAST 03/06/19 Ondansetron [Zofran Odt] 4 mg PO Q8H PRN PRN #10 tab 03/22/19 Allopurinol 300 mg PO DAILY 11/04/19 Insulin Glargine,Hum.rec.anlog 45 unit SQ QHS 11/04/19 [Lantus] Bupropion HCl [Bupropion Xl] 150 mg PO DAILY 07/07/20 Bupropion HCl [Bupropion Xl] 300 mg PO DAILY 07/07/20 Furosemide [Lasix] 40 mg PO DAILY@1200 07/07/20 Hydralazine HCl 25 mg PO TID 07/07/20 Acetaminophen [Tylenol Tablet] 650 mg PO Q6H PRN PRN tab 07/09/20 Mag Hydrox/Al Hydrox/Simeth 30 ml PO Q6H PRN PRN udc 07/09/20 [Mylanta II] Docusate Sodium [Colace] 200 mg PO BID 08/09/20 Insulin Lispro [Humalog KwikPen] See Protocol SQ ACHS 08/09/20 Isosorbide Mononitrate [Imdur] 30 mg PO DAILY 08/09/20 Multivitamin 1 tab PO DAILY 08/09/20 Nystatin Powder [Mycostatin Powder] 1 applic TOPICAL BID 08/09/20 Nystatin/Triamcin Cream [Mycolog] 1 applic TOPICAL BID 08/09/20 Omeprazole 20 mg PO DAILY 08/09/20 Polyethylene Glycol 3350 [Miralax] 17 gm PO DAILY 08/09/20 Potassium Chloride [K-Dur] 20 meq PO BIDCM 08/09/20 Warfarin Sodium 4 mg PO DAILY 08/09/20 Surgical History: Surgical History (Last Updated 03/27/19 @ 10:16 by Susana Govea) History of PTCA (Chronic) Z98.61 Mid LAD bare metal stent 07/20/2002. RCA Bare metal stent 07/02/2006 History of permanent cardiac pacemaker placement (Chronic) Z95.0 09/08/2013,[facility] Wilkins [facility] History of tonsillectomy (Chronic) Z90.89 H/O: hysterectomy (Chronic) Z90.710 History of cholecystectomy (Chronic) Z90.49 H/O adenoidectomy (Chronic) Z90.89 Surgical History: adenoidectomy, cholecystectomy, hysterectomy, tonsillectomy, - - Right lcjbu-fqp-drup amputation, panniculectomy, pacemaker placement, left leg vein grafting/bypass. 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 Review of Systems Unable to obtain accurate/complete ROS d/t: Unable to obtain due to patient confusion VTE Information - Inpt Only VTE Present on Admission: No VTE Mechan Device Prophylaxis: None VTE Pharm Prophylaxis ordered?: No Reason prophylaxis not ordered:: Treatment Not Indicated - Already on anticoagulation with Coumadin Patient Problems: Active and Suspected Problems (Last Updated 03/27/19 @ 10:15 by Susana Govea) MAX (acute kidney injury) (Acute) Healthcare-associated pneumonia (Acute) Hyperkalemia (Acute) Acute respiratory failure with hypoxia (Acute) - Physical Exam Vitals/I&O's: Vital Signs Temp Pulse Resp BP Pulse Ox 97.8 F 79 15 114/68 96 08/09/20 18:00 08/09/20 18:00 08/09/20 18:00 08/09/20 18:00 08/09/20 18:00 Oxygen Flow Rate (L/min) 2 Oxygen Delivery Method Bi-pap Weight: 388 lb 0.217 oz Body Mass Index (BMI) 51.2 Finger Stick Blood Glucose 77 Intake and Output for Last 24 Hours 08/07/20 08/08/20 08/09/20 23:59 23:59 23:59 Intake Total 1640.05 / 1640.05 Balance 1640.05 / 1640.05 General: Lethargic, - - Ill-appearing HEENT: Atraumatic, PERRLA, EOMI, Normocephalic Oral: Dry Mucosa Neck: Supple, No JVD, Negative Carotid Bruits Lungs: Clear to auscultation, Diminished Cardiovascular: Regular rate, No murmurs Abdomen: Bowel Sounds Present, Soft, Non Tender Extremities: No clubbing, No cyanosis, Capillary Refill Less than 3 Seconds, Edema - Lymphedema bilateral lower extremities, - - Right ryblg-gvs-erxt amputation Skin: No rashes, No breakdown Musculoskeletal: No Tenderness to Palpation of Joints or Extremities Neurological: Cranial nerves II-XII grossly intact Psych/Mental Status: Normal Affect, Appropriate Laboratory Results 08/09/20 12:30: WBC 8.7, RBC 3.28 L, Hgb 9.0 L, Hct 30.1 L, MCV 91.8, MCH 27.4, MCHC 29.9 L, RDW Std Deviation 69.0 H, RDW Coeff of Yoandy 20.8 H, Plt Count 72 L, MPV 12.7 H, Immature Gran % (Auto) 0.500, Neut % (Auto) 87.8 H, Lymph % (Auto) 6.1 L, [place] % (Auto) 5.6, Eos % (Auto) 0.0, Baso % (Auto) 0.0, Absolute Neuts (auto) 7.7, Absolute Lymphs (auto) 0.53 L, Nucleated RBC % 0, Differential Comment , Platelet Estimate MOD DEC, RBC Morphology N CHROM, Anisocytosis 1+ 08/09/20 12:30: PT 25.5 H, INR 2.4, APTT 44.3 H 08/09/20 12:30: Sodium 134 L, Potassium 5.3 H, Chloride 102, Carbon Dioxide 27.0, Anion Gap 5, BUN 98 H, Creatinine 2.99 H, Estim Creat Clear Calc 24.11, Est GFR (MDRD) Af Amer 21 L, Est GFR (MDRD) Non-Af 17 L, BUN/Creatinine Ratio 32.8 H, Glucose 107 H, Calcium 8.6, Total Bilirubin 1.10 H, AST 23, ALT 15, Alkaline Phosphatase 160 H, Troponin I 0.037, Total Protein 7.0, Albumin 2.3 L, Globulin 4.7 H, Albumin/Globulin Ratio 0.5 L 08/09/20 12:30: Lactic Acid 1.3 08/09/20 13:10: Urine Color Yellow, Urine Clarity Sl. Cloudy, Urine pH 5.0, Ur Specific [place] 1.015, Urine Protein 30 H, Urine Glucose (UA) Normal, Urine Ketones Negative, Urine Occult Blood Negative, Urine Nitrite Negative, Urine Bilirubin Negative, Urine Urobilinogen Normal, Ur Leukocyte Esterase 25 H, Urine RBC 0 SEEN, Urine WBC 0 SEEN, Ur Squamous Epith Cells 0 SEEN, Urine Bacteria 2+, Urine Mucus 0 SEEN 08/09/20 13:55: COVID-19 (FELICIA) Not Detected 08/09/20 15:14: Specimen Type ART, Sample Site L Radial, pH 7.41, Bicarbonate Actual 24.6, Total CO2 26, Base Excess 0, O2 Saturation 93 L, ABG pCO2 38.4, ABG pO2 67 L, O2 Delivery Device Cannula Assessment/Plan All Active Problems (Last Updated 03/27/19 @ 10:15 by Susana Govea) MAX (acute kidney injury) (Acute) Healthcare-associated pneumonia (Acute) Hyperkalemia (Acute) Acute respiratory failure with hypoxia (Acute) Infestation by bed bug (Resolved) 1. Acute hypoxic respiratory failure secondary to healthcare associated pneumonia-currently on BiPAP. Covid negative. Chest x-ray demonstrates bilateral infiltrates, mild CHF. Azactam and Vanco given in ER, continue. Obtain sputum culture. Strep for urine and Legionella. Albuterol DuoNeb aerosols. Continue supplement oxygen to maintain O2 sat above 90%. Obtain respiratory panel. Check BNP. Continue BiPAP as tolerated. 2. Acute kidney injury on chronic kidney disease stage IV with hyperkalemia- trend BMP. Patient did receive fluids in ER. Hesitant to give further fluids given mild congestion on chest x-ray and significantly reduced EF. 3. Metabolic encephalopathy-suspect secondary to #1/#2. Brain CT shows no acute abnormality. EEG ordered. 4. CAD status post stents/History of ischemic cardiomyopathy-echo July 2020 demonstrated an EF of 25 to 30%. Continue aspirin, statin, beta-yamilka, isosorbide, Lasix. 5. Type 2 diabetes zwswjjmf-Rkek-Wzlwm with sliding scale insulin. Continue home Lantus regimen. 6. Paroxysmal atrial fibrillation-continue Coumadin, carvedilol. 7. History of DVT-on anticoagulation with Coumadin. 8. Chronic normocytic anemia-at baseline. 9. Hypertension-stable, continue home carvedilol, isosorbide. 10. Hyperlipidemia-continue statin. 11. GERD-continue PPI regimen. 12. Depression/anxiety-continue home bupropion regimen. 13. History of tobacco dependence-reports she has not smoked tobacco products in several years. Encouraged continued cessation. 14. Marijuana use 15. Status post right rwzzv-ppq-hkuy amputation 16. Status post pacemaker placement-patient reports this was secondary to fast heart rate and atrial fibrillation. 17. Obesity-encourage diet lifestyle modifications. 18. History of left lower extremity vein grafting/bypass-continue aspirin, statin. CODE STATUS-DNR CCA per SNF paperwork. DVT prophylaxis-Coumadin This patient was seen by CATHRYN Diaz under the supervision of Dr. Casiano. <Aston Casiano - Last Filed: 08/09/20 20:04> History of Present Illness The patient is a 60 year old F presents with change in mental status from SNF. Patient confused and unable to provide any history. Noted that patient with periods of increased somnolence then agitation. CXR showed increased right side infiltrate from 07/07. [] Past Medical History Medical History: Medical History (Last Reviewed 08/09/20 @ 19:[address] Aston Casiano, ) Asthma (Chronic) J45.909 CVA (cerebral vascular accident) (Chronic) I63.9 2001 COPD (chronic obstructive pulmonary disease) (Chronic) J44.9 Above knee amputation of right lower extremity (Chronic) Z89.611 HLD (hyperlipidemia) (Chronic) E78.5 Coronary artery disease (Chronic) I25.10 Hypothyroidism (Chronic) E03.9 Atrial fibrillation (Chronic) I48.91 Ischemic cardiomyopathy (Chronic) I25.5 Diabetes mellitus (Chronic) E11.9 type II Morbid obesity (Chronic) E66.01 Allergies codeine Allergy (Verified 07/07/20 14:29) Rash latex Allergy (Verified 07/07/20 14:29) Itching Penicillins Allergy (Verified 07/07/20 14:29) Swelling dexamethasone [From Maxidex] Adverse Reaction (Verified 07/07/20 14:29) Unknown iodine Adverse Reaction (Verified 07/07/20 14:29) Itching morphine Adverse Reaction (Verified 07/07/20 14:29) Other contrast dye Allergy (Uncoded 07/07/20 14:29) GI upset GI upset Surgical History: Surgical History (Last Reviewed 08/09/20 @ 19:[address] Aston Casiano, DO) History of PTCA (Chronic) Z98.61 Mid LAD bare metal stent 07/20/2002. RCA Bare metal stent 07/02/2006 History of permanent cardiac pacemaker placement (Chronic) Z95.0 09/08/2013,[facility] Dr[facility] Wil[facility] History of tonsillectomy (Chronic) Z90.89 H/O: hysterectomy (Chronic) Z90.710 History of cholecystectomy (Chronic) Z90.49 H/O adenoidectomy (Chronic) Z90.89 - *Family History Paternal History Items: - VTE Information - Inpt Only VTE Present on Admission: No VTE Mechan Device Prophylaxis: None VTE Pharm Prophylaxis ordered?: No Reason prophylaxis not ordered:: Treatment Not Indicated - Physical Exam Vitals/I&O's: Vital Signs Temp Pulse Resp BP Pulse Ox 36.6 C 79 15 114/68 96 08/09/20 18:00 08/09/20 18:00 08/09/20 18:00 08/09/20 18:00 08/09/20 18:00 Oxygen Flow Rate (L/min) 2 Oxygen Delivery Method Bi-pap Weight: 176 kg Body Mass Index (BMI) 51.2 Finger Stick Blood Glucose 77 Intake and Output for Last 24 Hours 08/07/20 08/08/20 08/09/20 23:59 23:59 23:59 Intake Total 1640.05 / 1640.05 Balance 1640.05 / 1640.05 General: Lethargic, - - Ill-appearing. Appears older than stated age. Moaning incoherently. HEENT: Atraumatic, Normocephalic Oral: Dry Mucosa Lungs: - - coarse breath sounds bilaterally. Cardiovascular: Regular rate, No murmurs Abdomen: Bowel Sounds Present, Soft, Non Tender, Non-Distended Extremities: Edema, - Skin: No rashes, - - peau de orange appearance to LLQ abdominal wall Musculoskeletal: No Tenderness to Palpation of Joints or Extremities Neurological: - - limited given profound confusion. moves all extremities spontaneosly. Psych/Mental Status: Agitated, Restless Laboratory Results 08/09/20 12:30: WBC 8.7, RBC 3.28 L, Hgb 9.0 L, Hct 30.1 L, MCV 91.8, MCH 27.4, MCHC 29.9 L, RDW Std Deviation 69.0 H, RDW Coeff of Yoandy 20.8 H, Plt Count 72 L, MPV 12.7 H, Immature Gran % (Auto) 0.500, Neut % (Auto) 87.8 H, Lymph % (Auto) 6.1 L, [place] % (Auto) 5.6, Eos % (Auto) 0.0, Baso % (Auto) 0.0, Absolute Neuts (auto) 7.7, Absolute Lymphs (auto) 0.53 L, Nucleated RBC % 0, Differential Comment , Platelet Estimate MOD DEC, RBC Morphology N CHROM, Anisocytosis 1+ 08/09/20 12:30: PT 25.5 H, INR 2.4, APTT 44.3 H 08/09/20 12:30: Sodium 134 L, Potassium 5.3 H, Chloride 102, Carbon Dioxide 27.0, Anion Gap 5, BUN 98 H, Creatinine 2.99 H, Estim Creat Clear Calc 24.11, Est GFR (MDRD) Af Amer 21 L, Est GFR (MDRD) Non-Af 17 L, BUN/Creatinine Ratio 32.8 H, Glucose 107 H, Calcium 8.6, Total Bilirubin 1.10 H, AST 23, ALT 15, Alkaline Phosphatase 160 H, Troponin I 0.037, Total Protein 7.0, Albumin 2.3 L, Globulin 4.7 H, Albumin/Globulin Ratio 0.5 L 08/09/20 12:30: Lactic Acid 1.3 08/09/20 12:30: B-Natriuretic Peptide 613.6 H 08/09/20 13:10: Urine Color Yellow, Urine Clarity Sl. Cloudy, Urine pH 5.0, Ur Specific [place] 1.015, Urine Protein 30 H, Urine Glucose (UA) Normal, Urine Ketones Negative, Urine Occult Blood Negative, Urine Nitrite Negative, Urine Bilirubin Negative, Urine Urobilinogen Normal, Ur Leukocyte Esterase 25 H, Urine RBC 0 SEEN, Urine WBC 0 SEEN, Ur Squamous Epith Cells 0 SEEN, Urine Bacteria 2+, Urine Mucus 0 SEEN 08/09/20 13:55: COVID-19 (FELICIA) Not Detected 08/09/20 15:14: Specimen Type ART, Sample Site L Radial, pH 7.41, Bicarbonate Actual 24.6, Total CO2 26, Base Excess 0, O2 Saturation 93 L, ABG pCO2 38.4, ABG pO2 67 L, O2 Delivery Device Cannula Chest x-ray reviewed and was poor inspiratory effort. Bilateral infiltrates. Questionable pleural effusions. Current Medications Acetaminophen (Acetaminophen 325 Mg Tablet) 650 mg PO Q6H PRN PRN PRN Reason: Pain Score 1-10/Temp > 100.7 F Al Hydroxide/Mg Hydroxide (Mag Hydrox/Al Hydrox/Simeth 30 Ml Udc) 30 ml PO Q6H PRN PRN PRN Reason: Gastric Burning Albuterol Sulfate (Albuterol 2.5 Mg/3 Ml Vial.Neb.) 2.5 mg INHALATION Q2H PRN PRN PRN Reason: SHORTNESS OF BREATH Albuterol/Ipratropium (Ipratropium/Albuterol Sulfate 3 Ml Ampul.Neb) 3 ml INHALATION Q4H.RT [facility] Allopurinol (Allopurinol 300 Mg Tablet) 300 mg PO DAILY [facility] Aspirin (Aspirin 81 Mg Tab.Chew) 81 mg PO DAILY@0800 [facility] Atorvastatin Calcium (Atorvastatin Calcium 40 Mg Tablet) 40 mg PO QHS [facility] Bupropion HCl (Bupropion (Xl) 150 Mg Tablet.Xl) 150 mg PO DAILY [facility] Carvedilol (Carvedilol 25 Mg Tablet) 25 mg PO BID [facility] Docusate Sodium (Docusate Sodium 100 Mg Capsule) 200 mg PO BID [facility] Furosemide (Furosemide 80 Mg Tablet) 80 mg PO BREAKFAST [facility] Guaifenesin (Guaifenesin 1,200 Mg Tablet) 1,200 mg PO BID [facility] Hydralazine HCl (Hydralazine 25 Mg Tablet) 25 mg PO TID [facility] Vancomycin IV Pharmacy to Dose (1 ea/ Sodium Chloride) 500 mls @ 250 mls/hr IV X1 PRN; Protocol PRN Reason: Rx to Dose Aztreonam 2 gm/ Sodium (Chloride) 100 mls @ 150 mls/hr IV Q8 [facility] Stop: 08/16/20 22:01 Vancomycin HCl 1,500 mg/ (Sodium Chloride) 530 mls @ 250 mls/hr IV Q24H [facility] Insulin Glargine (Insulin Glargine 100 Units/Ml Pen) 45 units SC QHS [facility] Insulin Human Lispro (Insulin Lispro 100 Unit/Ml Insuln.Pen) 0 unit SC ACHS [facility]; Protocol Isosorbide Mononitrate (Isosorbide Mononitrate 30 Mg Tablet) 30 mg PO DAILY [facility] Pantoprazole Sodium (Pantoprazole Sodium 20 Mg Tablet) 20 mg PO DAILY [facility] Polyethylene Glycol (Polyethylene Glycol 3350 17 Gm Packet) 17 gm PO DAILY [facility] Sodium Chloride (0.9% Saline Lock 10 Ml Syringe) 10 - 40 ml IV UD PRN PRN Reason: SALINE FLUSH Warfarin Sodium (Warfarin 4 Mg Tablet) 4 mg PO DAILY@1700 [facility] Assessment/Plan Patient seen and examined independently. Data reviewed. I agree with the above note by the nurse practitioner. 1. Acute hypoxic respiratory failure: Secondary to possible gram-negative pneumonia but also component of congestive heart failure. Placed on BiPAP. ABG did show some hypoxia but was otherwise unremarkable. Wean oxygen as tolerated. Treat the above issues. 2. Suspected gram-negative pneumonia: Patient received aztreonam as well as vancomycin. Pulmonary toilet. 3. Suspected acute heart failure with reduced ejection fraction: Patient has and ejection fraction of 25 to 30% from 2D echocardiogram on July 09, 2020. Given the patient's profound lymphedema but also what appears to be a 25 kg weight gain since July, will change furosemide to 40 mg IV twice daily. Strict I's and O's. Fluid restriction 1500 cc/day 4. Encephalopathy, presumed med folic given the respiratory failure, pneumonia and CHF. Hold potentiating agents. Check an ammonia level. 5. VTE prophylaxis: anticoagulated. Inpatient E&M: [id number] Init Hosp L3
--- NOTE | 2020-08-09 18:17 | ED.RN ---
YASMANY AT [facility] NOTIFIED OF ADMISSION. YASMANY STATED PT HAD BEEN CONFUSED YESTERDAY, WORSE THIS AM.
--- NOTE | 2020-08-09 19:00 | ED.RN ---
CALLED NURSE TO NURSE TO TO PCU NURSE
--- NOTE | 2020-08-09 19:17 | PCM.RX.CS ---
Consult Pharmacy has been consulted to manage selected antiobiotic: Vancomycin Type of Consult: New start Suspected Infection: Pneumonia Labs: Sodium 134 mmol/L (136-145) L 08/09/20 12:30 Potassium 5.3 mmol/L (3.5-5.1) H 08/09/20 12:30 Chloride 102 mmol/L (98-107) 08/09/20 12:30 Carbon Dioxide 27.0 mmol/L (21.0-32.0) 08/09/20 12:30 Anion Gap 5 (5-15) 08/09/20 12:30 BUN 98 mg/dL (7-18) H 08/09/20 12:30 Creatinine 2.99 mg/dL (0.55-1.02) H 08/09/20 12:30 Est GFR (MDRD) Af Amer 21 mL/min (>60) L 08/09/20 12:30 Est GFR (MDRD) Non-Af 17 mL/min (>60) L 08/09/20 12:30 BUN/Creatinine Ratio 32.8 RATIO (10-20) H 08/09/20 12:30 Glucose 107 mg/dL (74-106) H 08/09/20 12:30 Goal Trough: 15-20 mcg/mL Pharmacy Plan for Drug Dosing: NEW START IV VANCOMYCIN Consulting Physician: NUBIA MENDEZ Indication: PNEUMONIA Goal Trough: 15-20 MG/DL SrCr: 2.99 CrCl: 37 ML/MIN USING ADJUSTED BODY WEIGHT OF 115.6KG Comments: 2000MG DOSE IN ED @ 1530 Vancomycin Dose: 1500MG Q24H STARTING 08/10 @ 1530 Pending Level: 08/10/20 @ 1500 (PRIOR TO 3RD DOSE) Pharmacy Service will continue to monitor and adjust dosing as required. Labs to be done on [date and time ordered]: 08/10/20 @ 1500
[2020-08-09 19:30] LABS: BNP,B-Type NATRIURETIC PEPTIDE 613.6 pg/mL (0-100)
[2020-08-09] MEDS: hydrALAZINE 25 MG Tablet PO (21:40)
[2020-08-09] MEDS: guaiFENesin 1,200 MG Tablet 1200 MG PO (21:40)
[2020-08-09] MEDS: Atorvastatin Calcium 40 MG Tablet PO (21:40)
[2020-08-09] MEDS: Furosemide 40 MG/4 ML Vial IV (21:40)
[2020-08-09] MEDS: Carvedilol 25 MG Tablet PO (21:41)
[2020-08-09 21:55] LABS: Bedside Glucose 108 mg/dL (70-110)
[2020-08-09] MEDS: 0.9% Saline Lock 10 ML Syringe IV (22:36)
[2020-08-09] MEDS: Ipratropium/Albuterol Sulfate 3 ML AMPUL.NEB INHALATION (23:22)
[2020-08-10] VITALS (15 sets, daily range): BP systolic 85–105; BP diastolic 49–70; PULSE 76–88; RESP 16–20; TEMP 36.4–36.6; O2SAT 93–99
[2020-08-10] MEDS: hydrALAZINE 25 MG Tablet PO ×2 (05:51→21:54)
[2020-08-10 06:11] LABS: Absolute Lymphocyte Count 0.64 X10^3/uL (0.83-4.51); Basophil# 0.02 X10^3/uL; Basophil% 0.3 % (0-1); Eosinophil# 0.07 X10^3/uL; Eosinophils% 1.1 % (0-5); Hematocrit 26.1 % (37-47); Hemoglobin 7.8 g/dL (12.0-15.0); Lymphocyte # 0.64 X10^3/ul (4.0); Lymphocyte % 10.3 % (19-41); Mean Corp Hgb Conc 29.9 g/dL (32-36); Mean Corpuscular Volume 93.5 fL (81-99); Mean Platelet Vol. 12.1 fl (6.2-12.0); Monocyte# 0.45 X10^3/uL; Monocyte% 7.3 % (0-10); NRBC Flagged by Analyzer 0 % (0-5); Neutrophil # 4.98 X10^3/uL (2.7-7.7); Neutrophil % 80.5 % (47-70); POSITIVE COUNT YES; POSITIVE MORPHOLOGY YES; RBC Distribution Width CV 20.5 % (11.6-14.6); RBC Distribution Width SD 70.4 fl (35.1-43.9); Red Blood Count 2.79 M/mm3 (4.2-5.4); White Blood Count 6.2 K/mm3 (4.4-11.0)
[2020-08-10 06:18] LABS: Differential Indicated SCAN CRITERIA MET
[2020-08-10 06:34] LABS: Anion Gap 6 (5-15); BUN 99 mg/dL (7-18); BUN/Creat Ratio 34.9 RATIO (10-20); Calcium,Total 8.2 mg/dL (8.5-10.1); Chloride 103 mmol/L (98-107); Creatinine, Serum 2.84 mg/dL (0.55-1.02); EST Glomerular Filtration Rate 18 mL/min (>60); Est Glom Filt Rate - Afr Amer 22 mL/min (>60); Estimated Creatinine Clearance 25.39 ml/min; Glucose 68 mg/dL (74-106); Potassium 4.7 mmol/L (3.5-5.1); Sodium Level 135 mmol/L (136-145)
[2020-08-10 06:47] LABS: Differential Comment SCANNED; Platelet Estimate MOD DEC (ADEQ); Stomatocyte 1+
[2020-08-10 07:00] LABS: Bedside Glucose 68 mg/dL (70-110)
--- NOTE | 2020-08-10 08:04 | TELEMED_ITS ---
[facility] has confirmed receipt of a request for visit. This document confirms receipt of the order initiating the consult. To find the results of the consultation, please view the patient's reports for the scanned Telemed Consult.
[2020-08-10 09:16] LABS: International Normalized Ratio 3.1; Prothrombin Time (Protime)PT. 31.3 SECONDS (11.7-14.9)
[2020-08-10] MEDS: Ipratropium/Albuterol Sulfate 3 ML AMPUL.NEB INHALATION ×3 (11:01→23:14)
[2020-08-10 11:22] LABS: Ferritin 36 ng/mL (8-252); Iron 54 ug/dL (50-170); Iron Binding Capacity,Total 298 ug/dL (250-450); PERCENT IRON SATURATION 18.1 % (15.0-55.0)
--- NOTE | 2020-08-10 11:37 | CASEMGMT ---
Patient is from [place]. [facility] faxed information to [facility]. [facility] will verify with patient that her plan is to return to [place]. She will need insurance authorization to return as well as a COVID test within 72 hours of d/c. Ly CHUNG MSW
[2020-08-10] MEDS: Menthol/Lanolin/Calamine/Znox 113 GM Tube 1 APPLIC TOPICAL ×2 (11:54→21:58)
[2020-08-10 11:56] LABS: Bedside Glucose 79 mg/dL (70-110)
--- NOTE | 2020-08-10 12:12 | PN_ITS ---
<ShukriZuleyka FINISHING INSPECTOR - Last Filed: 08/10/20 12:43> Patient Problems: Active and Suspected Problems (Last Reviewed 08/09/20 @ 19:[address] Aston argueta DO) MAX (acute kidney injury) (Acute) Healthcare-associated pneumonia (Acute) Hyperkalemia (Acute) Acute respiratory failure with hypoxia (Acute) Subjective: Patient seen and examined. Responding appropriately today, alert and oriented x3. Reports mild shortness of breath. Denies other current complaints. - Physical Exam Vitals/I&O's: Vital Signs Temp Pulse Resp BP Pulse Ox 97.9 F 82 17 105/58 L 95 08/10/20 04:17 08/10/20 11:18 08/10/20 11:18 08/10/20 05:51 08/10/20 07:59 Oxygen Flow Rate (L/min) 4 Oxygen Delivery Method Nasal Cannula Weight: 387 lb 12.69 oz Body Mass Index (BMI) 51.2 Finger Stick Blood Glucose 77 Intake and Output for Last 24 Hours 08/08/20 08/09/20 08/10/20 23:59 23:59 23:59 Intake Total 1740.05 / 1980.05 460 / 460 Output Total 1400 / 1400 Balance 1740.05 / 1030.05 -940 / -940 General: Alert, Oriented x3, Cooperative, No apparent distress HEENT: Atraumatic, PERRLA, EOMI, Normocephalic Neck: Supple, No JVD, Negative Carotid Bruits Lungs: Clear to auscultation, Diminished Cardiovascular: Regular rate, No murmurs Abdomen: Bowel Sounds Present, Soft, Non Tender, Non-Distended, Obese Extremities: No clubbing, No cyanosis, Edema - Chronic lower extremities Skin: No rashes, No breakdown Musculoskeletal: No Tenderness to Palpation of Joints or Extremities, - - Right [id number] amputation Neurological: Cranial nerves II-XII grossly intact, Neuro grossly intact Psych/Mental Status: Normal Affect, Appropriate Microbiology Past 72 Hours 08/09/20 13:10 Urine Catheter - Catheter Urine Culture - Preliminary GNR lactose doughnut batter mixer 08/09/20 21:15 Mucosa - Nasopharyngeal Respiratory Panel (PCR) - Final 08/09/20 13:10 Urine Catheter - Catheter Legionella Antigen - Final 08/09/20 13:10 Urine Catheter - Catheter Streptococcus pneumoniae Antigen (M - Final Laboratory Results 08/09/20 12:30: WBC 8.7, RBC 3.28 L, Hgb 9.0 L, Hct 30.1 L, MCV 91.8, MCH 27.4, MCHC 29.9 L, RDW Std Deviation 69.0 H, RDW Coeff of Yoandy 20.8 H, Plt Count 72 L, MPV 12.7 H, Immature Gran % (Auto) 0.500, Neut % (Auto) 87.8 H, Lymph % (Auto) 6.1 L, Lyman % (Auto) 5.6, Eos % (Auto) 0.0, Baso % (Auto) 0.0, Absolute Neuts (auto) 7.7, Absolute Lymphs (auto) 0.53 L, Nucleated RBC % 0, Differential Comment , Platelet Estimate MOD DEC, RBC Morphology N CHROM, Anisocytosis 1+ 08/09/20 12:30: PT 25.5 H, INR 2.4, APTT 44.3 H 08/09/20 12:30: Sodium 134 L, Potassium 5.3 H, Chloride 102, Carbon Dioxide 27.0, Anion Gap 5, BUN 98 H, Creatinine 2.99 H, Estim Creat Clear Calc 24.11, Est GFR (MDRD) Af Amer 21 L, Est GFR (MDRD) Non-Af 17 L, BUN/Creatinine Ratio 32.8 H, Glucose 107 H, Calcium 8.6, Total Bilirubin 1.10 H, AST 23, ALT 15, Alkaline Phosphatase 160 H, Troponin I 0.037, Total Protein 7.0, Albumin 2.3 L, Globulin 4.7 H, Albumin/Globulin Ratio 0.5 L 08/09/20 12:30: Lactic Acid 1.3 08/09/20 12:30: B-Natriuretic Peptide 613.6 H 08/09/20 13:10: Urine Color Yellow, Urine Clarity Sl. Cloudy, Urine pH 5.0, Ur Specific [place] 1.015, Urine Protein 30 H, Urine Glucose (UA) Normal, Urine Ketones Negative, Urine Occult Blood Negative, Urine Nitrite Negative, Urine Bilirubin Negative, Urine Urobilinogen Normal, Ur Leukocyte Esterase 25 H, Urine RBC 0 SEEN, Urine WBC 0 SEEN, Ur Squamous Epith Cells 0 SEEN, Urine Bacteria 2+, Urine Mucus 0 SEEN 08/09/20 13:55: COVID-19 (FELICIA) Not Detected 08/09/20 15:14: Specimen Type ART, Sample Site L Radial, pH 7.41, Bicarbonate Actual 24.6, Total CO2 26, Base Excess 0, O2 Saturation 93 L, ABG pCO2 38.4, ABG pO2 67 L, O2 Delivery Device Cannula 08/09/20 20:37: Ammonia 44.0 H 08/09/20 21:38: POC Glucose 108 08/10/20 05:20: WBC 6.2, RBC 2.79 L, Hgb 7.8 L, Hct 26.1 L, MCV 93.5, MCH 28.0, MCHC 29.9 L, RDW Std Deviation 70.4 H, RDW Coeff of Yoandy 20.5 H, Plt Count FINISHING INSPECTOR, MPV 12.1 H, Immature Gran % (Auto) 0.500, Neut % (Auto) 80.5 H, Lymph % (Auto) 10.3 L, Lyman % (Auto) 7.3, Eos % (Auto) 1.1, Baso % (Auto) 0.3, Absolute Neuts (auto) 5.0, Absolute Lymphs (auto) 0.64 L, Nucleated RBC % 0, Differential Comment SCANNED, Platelet Estimate MOD DEC, Stomatocytes 1+ 08/10/20 05:20: Sodium 135 L, Potassium 4.7, Chloride 103, Carbon Dioxide 26.0, Anion Gap 6, BUN 99 H, Creatinine 2.84 H, Estim Creat Clear Calc 25.39, Est GFR (MDRD) Af Amer 22 L, Est GFR (MDRD) Non-Af 18 L, BUN/Creatinine Ratio 34.9 H, Glucose 68 L, Calcium 8.2 L 08/10/20 05:20: Iron 54, TIBC 298, Iron Saturation 18.1, Ferritin 36 08/10/20 06:51: POC Glucose 68 L 08/10/20 08:50: PT 31.3 H, INR 3.1 08/10/20 11:51: POC Glucose 79 Current Medications Acetaminophen (Acetaminophen 325 Mg Tablet) 650 mg PO Q6H PRN PRN PRN Reason: Pain Score 1-10/Temp > 100.7 F Al Hydroxide/Mg Hydroxide (Mag Hydrox/Al Hydrox/Simeth 30 Ml Udc) 30 ml PO Q6H PRN PRN PRN Reason: Gastric Burning Albuterol Sulfate (Albuterol 2.5 Mg/3 Ml Vial.Neb.) 2.5 mg INHALATION Q2H PRN PRN PRN Reason: SHORTNESS OF BREATH Albuterol/Ipratropium (Ipratropium/Albuterol Sulfate 3 Ml Ampul.Neb) 3 ml INHALATION Q4H.RT [facility], [facility] Last Admin: 08/10/20 11:01 Dose: 3 ml Documented by: Allopurinol (Allopurinol 300 Mg Tablet) 300 mg PO DAILY [facility] Aspirin (Aspirin 81 Mg Tab.Chew) 81 mg PO DAILY@0800 [facility] Atorvastatin Calcium (Atorvastatin Calcium 40 Mg Tablet) 40 mg PO QHS [facility] Last Admin: 08/09/20 21:40 Dose: 40 mg Documented by: Bupropion HCl (Bupropion (Xl) 150 Mg Tablet.Xl) 150 mg PO DAILY [facility] Calamine/Phenol (Menthol/Lanolin/Calamine/Znox 113 Gm Tube) 1 applic TOPICAL BID [facility], [facility]; Protocol Last Admin: 08/10/20 11:54 Dose: 1 applicatio Documented by: Carvedilol (Carvedilol 25 Mg Tablet) 25 mg PO BID [facility] Last Admin: 08/10/20 11:54 Dose: Not Given Documented by: Docusate Sodium (Docusate Sodium 100 Mg Capsule) 200 mg PO BID [facility] Last Admin: 08/10/20 11:54 Dose: Not Given Documented by: Furosemide (Furosemide 40 Mg/4 Ml Vial) 40 mg IV BID@1000,1800 [facility] Guaifenesin (Guaifenesin 1,200 Mg Tablet) 1,200 mg PO BID [facility] Last Admin: 08/09/20 21:40 Dose: 1,200 mg Documented by: Hydralazine HCl (Hydralazine 25 Mg Tablet) 25 mg PO TID [facility] Last Admin: 08/10/20 05:51 Dose: 25 mg Documented by: Vancomycin IV Pharmacy to Dose (1 ea/ Sodium Chloride) 500 mls @ 250 mls/hr IV X1 PRN; Protocol PRN Reason: Rx to Dose Aztreonam 2 gm/ Sodium (Chloride) 100 mls @ 150 mls/hr IV Q8 [facility] Stop: 08/16/20 22:01 Last Infusion: 08/10/20 08:00 Dose: Infused Documented by: Vancomycin HCl 1,500 mg/ (Sodium Chloride) 530 mls @ 250 mls/hr IV Q24H LIONEL Sodium Chloride () 250 mls @ 15 mls/hr IV .[id number] PRN PRN Reason: Additional IVPB Infusion Last Admin: 08/09/20 20:00 Dose: 15 mls/hr Documented by: Insulin Glargine (Insulin Glargine 100 Units/Ml Pen) 45 units SC QHS [facility] Last Admin: 08/09/20 21:41 Dose: 45 units Documented by: Insulin Human Lispro (Insulin Lispro 100 Unit/Ml Insuln.Pen) 0 unit SC ACHS [facility], [facility]; Protocol Last Admin: 08/10/20 11:55 Dose: Not Given Documented by: Isosorbide Mononitrate (Isosorbide Mononitrate 30 Mg Tablet) 30 mg PO DAILY [facility] Lactulose (Lactulose 20 Gm/30 Ml Udc) 20 gm PO BID [facility] Nystatin (Nystatin Powder 15gm Bottle) 1 applic TOPICAL BID [facility], [facility]; Protocol Pantoprazole Sodium (Pantoprazole Sodium 20 Mg Tablet) 20 mg PO DAILY [facility] Polyethylene Glycol (Polyethylene Glycol 3350 17 Gm Packet) 17 gm PO DAILY [facility] Last Admin: 08/10/20 11:54 Dose: Not Given Documented by: Sodium Chloride (0.9% Saline Lock 10 Ml Syringe) 10 - 40 ml IV UD PRN PRN Reason: SALINE FLUSH Last Admin: 08/09/20 22:36 Dose: 10 ml Documented by: Warfarin Sodium (Warfarin 4 Mg Tablet) 4 mg PO DAILY@1700 [facility] Last Admin: 08/09/20 21:40 Dose: 4 mg Documented by: Medical Necessity - Tobacco Use Smoking Status: Former smoker Assessment/Plan All Active Problems (Last Reviewed 08/09/20 @ 19:[address] Aston Casiano, DO) MAX (acute kidney injury) (Acute) Healthcare-associated pneumonia (Acute) Hyperkalemia (Acute) Acute respiratory failure with hypoxia (Acute) Infestation by bed bug (Resolved) 1. Acute hypoxic respiratory failure secondary to healthcare associated pneumonia and heart failure with reduced ejection fraction-on BiPAP on admission. Covid negative. Chest x-ray demonstrates bilateral infiltrates, mild CHF. Continue Azactam and Vanco. Obtain sputum culture. Strep for urine and Legionella negative. Albuterol DuoNeb aerosols. Continue supplement oxygen to maintain O2 sat above 90%. Respiratory panel negative. Patient significantly improved today. Oxygen stable on 4 L nasal cannula. 2. Acute kidney injury on chronic kidney disease stage IV with hyperkalemia- trending down. Trend BMP. 3. Metabolic encephalopathy-suspect secondary to #1/#2. Brain CT shows no acute abnormality. EEG demonstrates mild diffuse encephalopathy, no epileptiform discharges. Ammonia level 44. Initiated on lactulose, repeat ammonia level in a.m. 4. Acute on chronic heart failure with reduced ejection fraction/ischemic cardiomyopathy-echo July 2020 demonstrates an EF of 25 to 30%. Chest x-ray on admission with congestion. BNP 600. Continue IV Lasix. Strict I&O. Daily weight. 5. Type 2 diabetes eplhikkn-Swuf-Wexvb with sliding scale insulin. Continue home Lantus regimen. 6. Paroxysmal atrial fibrillation-continue Coumadin, carvedilol. 7. History of DVT-on anticoagulation with Coumadin. 8. Chronic normocytic anemia-at baseline. 9. Hypertension-stable, continue home carvedilol, isosorbide. 10. Hyperlipidemia-continue statin. 11. GERD-continue PPI regimen. 12. Depression/anxiety-continue home bupropion regimen. 13. History of tobacco dependence-reports she has not smoked tobacco products in several years. Encouraged continued cessation. 14. Marijuana use 15. Status post right [id number] amputation 16. Status post pacemaker placement-patient reports this was secondary to fast heart rate and atrial fibrillation. 17. Obesity-encourage diet lifestyle modifications. 18. History of left lower extremity vein grafting/bypass-continue aspirin, statin. 19. CAD with history of stents-continue aspirin, statin, beta-jeremie, isosorbide, Lasix. CODE STATUS-DNR CCA DVT prophylaxis-Coumadin This patient was seen by CATHRYN Diaz under the supervision of Dr. Blackwood. <Harmony Blackwood - Last Filed: 08/10/20 14:42> - Physical Exam Vitals/I&O's: Vital Signs Temp Pulse Resp BP Pulse Ox 97.6 F L 82 17 85/70 L 99 08/10/20 10:00 08/10/20 11:18 08/10/20 11:18 08/10/20 13:05 08/10/20 10:00 Oxygen Flow Rate (L/min) 4 Oxygen Delivery Method Room Air Weight: 175.9 kg Body Mass Index (BMI) 51.2 Finger Stick Blood Glucose 77 Intake and Output for Last 24 Hours 08/08/20 08/09/20 08/10/20 23:59 23:59 23:59 Intake Total 1740.05 / 1980.05 710 / 710 Output Total 1400 / 1400 Balance 1740.05 / 1030.05 -690 / -690 Microbiology Past 72 Hours 08/09/20 13:10 Urine Catheter - Catheter Urine Culture - Preliminary GNR lactose doughnut batter mixer 08/09/20 21:15 Mucosa - Nasopharyngeal Respiratory Panel (PCR) - Final 08/09/20 13:10 Urine Catheter - Catheter Legionella Antigen - Final 08/09/20 13:10 Urine Catheter - Catheter Streptococcus pneumoniae Antigen (M - Final Laboratory Results 08/09/20 12:30: B-Natriuretic Peptide 613.6 H 08/09/20 13:55: COVID-19 (FELICIA) Not Detected 08/09/20 15:14: Specimen Type ART, Sample Site L Radial, pH 7.41, Bicarbonate Actual 24.6, Total CO2 26, Base Excess 0, O2 Saturation 93 L, ABG pCO2 38.4, ABG pO2 67 L, O2 Delivery Device Cannula 08/09/20 20:37: Ammonia 44.0 H 08/09/20 21:38: POC Glucose 108 08/10/20 05:20: WBC 6.2, RBC 2.79 L, Hgb 7.8 L, Hct 26.1 L, MCV 93.5, MCH 28.0, MCHC 29.9 L, RDW Std Deviation 70.4 H, RDW Coeff of Yoandy 20.5 H, Plt Count FINISHING INSPECTOR, MPV 12.1 H, Immature Gran % (Auto) 0.500, Neut % (Auto) 80.5 H, Lymph % (Auto) 10.3 L, Lyman % (Auto) 7.3, Eos % (Auto) 1.1, Baso % (Auto) 0.3, Absolute Neuts (auto) 5.0, Absolute Lymphs (auto) 0.64 L, Nucleated RBC % 0, Differential Comment SCANNED, Platelet Estimate MOD DEC, Stomatocytes 1+ 08/10/20 05:20: Sodium 135 L, Potassium 4.7, Chloride 103, Carbon Dioxide 26.0, Anion Gap 6, BUN 99 H, Creatinine 2.84 H, Estim Creat Clear Calc 25.39, Est GFR (MDRD) Af Amer 22 L, Est GFR (MDRD) Non-Af 18 L, BUN/Creatinine Ratio 34.9 H, Glucose 68 L, Calcium 8.2 L 08/10/20 05:20: Iron 54, TIBC 298, Iron Saturation 18.1, Ferritin 36 08/10/20 06:51: POC Glucose 68 L 08/10/20 08:50: PT 31.3 H, INR 3.1 08/10/20 11:51: POC Glucose 79 Current Medications Acetaminophen (Acetaminophen 325 Mg Tablet) 650 mg PO Q6H PRN PRN PRN Reason: Pain Score 1-10/Temp > 100.7 F Al Hydroxide/Mg Hydroxide (Mag Hydrox/Al Hydrox/Simeth 30 Ml Udc) 30 ml PO Q6H PRN PRN PRN Reason: Gastric Burning Albuterol Sulfate (Albuterol 2.5 Mg/3 Ml Vial.Neb.) 2.5 mg INHALATION Q2H PRN PRN PRN Reason: SHORTNESS OF BREATH Albuterol/Ipratropium (Ipratropium/Albuterol Sulfate 3 Ml Ampul.Neb) 3 ml INHALATION Q4H.RT [facility], [facility] Last Admin: 08/10/20 11:01 Dose: 3 ml Documented by: Allopurinol (Allopurinol 300 Mg Tablet) 300 mg PO DAILY [facility] Last Admin: 08/10/20 13:06 Dose: 300 mg Documented by: Aspirin (Aspirin 81 Mg Tab.Chew) 81 mg PO DAILY@0800 [facility] Last Admin: 08/10/20 13:04 Dose: 81 mg Documented by: Atorvastatin Calcium (Atorvastatin Calcium 40 Mg Tablet) 40 mg PO QHS [facility] Last Admin: 08/09/20 21:40 Dose: 40 mg Documented by: Bupropion HCl (Bupropion (Xl) 150 Mg Tablet.Xl) 150 mg PO DAILY [facility] Last Admin: 08/10/20 13:04 Dose: 150 mg Documented by: Calamine/Phenol (Menthol/Lanolin/Calamine/Znox 113 Gm Tube) 1 applic TOPICAL BID [facility], [facility]; Protocol Last Admin: 08/10/20 11:54 Dose: 1 applicatio Documented by: Carvedilol (Carvedilol 25 Mg Tablet) 25 mg PO BID [facility] Last Admin: 08/10/20 11:54 Dose: Not Given Documented by: Docusate Sodium (Docusate Sodium 100 Mg Capsule) 200 mg PO BID [facility] Last Admin: 08/10/20 11:54 Dose: Not Given Documented by: Furosemide (Furosemide 40 Mg/4 Ml Vial) 40 mg IV BID@1000,1800 [facility] Last Admin: 08/10/20 12:39 Dose: Not Given Documented by: Guaifenesin (Guaifenesin 1,200 Mg Tablet) 1,200 mg PO BID [facility] Last Admin: 08/10/20 13:06 Dose: 1,200 mg Documented by: Hydralazine HCl (Hydralazine 25 Mg Tablet) 25 mg PO TID [facility] Last Admin: 08/10/20 13:05 Dose: Not Given Documented by: Vancomycin IV Pharmacy to Dose (1 ea/ Sodium Chloride) 500 mls @ 250 mls/hr IV X1 PRN; Protocol PRN Reason: Rx to Dose Aztreonam 2 gm/ Sodium (Chloride) 100 mls @ 150 mls/hr IV Q8 [facility] Stop: 08/16/20 22:01 Last Admin: 08/10/20 14:09 Dose: 150 mls/hr Documented by: Vancomycin HCl 1,500 mg/ (Sodium Chloride) 530 mls @ 250 mls/hr IV Q24H [facility] Sodium Chloride () 250 mls @ 15 mls/hr IV .[id number] PRN PRN Reason: Additional IVPB Infusion Last Infusion: 08/10/20 12:43 Dose: Infused Documented by: Insulin Glargine (Insulin Glargine 100 Units/Ml Pen) 45 units SC QHS [facility] Last Admin: 08/09/20 21:41 Dose: 45 units Documented by: Insulin Human Lispro (Insulin Lispro 100 Unit/Ml Insuln.Pen) 0 unit SC ACHS [facility]; Protocol Last Admin: 08/10/20 11:55 Dose: Not Given Documented by: Isosorbide Mononitrate (Isosorbide Mononitrate 30 Mg Tablet) 30 mg PO DAILY [facility] Last Admin: 08/10/20 13:05 Dose: 30 mg Documented by: Lactulose (Lactulose 20 Gm/30 Ml Udc) 20 gm PO BID [facility] Stop: 08/10/20 22:01 Last Admin: 08/10/20 13:05 Dose: 20 gm Documented by: Nystatin (Nystatin Powder 15gm Bottle) 1 applic TOPICAL BID [facility]; Protocol Last Admin: 08/10/20 13:06 Dose: 1 applicatio Documented by: Pantoprazole Sodium (Pantoprazole Sodium 20 Mg Tablet) 20 mg PO DAILY [facility] Last Admin: 08/10/20 13:04 Dose: 20 mg Documented by: Polyethylene Glycol (Polyethylene Glycol 3350 17 Gm Packet) 17 gm PO DAILY [facility] Last Admin: 08/10/20 11:54 Dose: Not Given Documented by: Sodium Chloride (0.9% Saline Lock 10 Ml Syringe) 10 - 40 ml IV UD PRN PRN Reason: SALINE FLUSH Last Admin: 08/09/20 22:36 Dose: 10 ml Documented by: Warfarin Sodium (Warfarin 4 Mg Tablet) 4 mg PO DAILY@1700 [facility] Last Admin: 08/09/20 21:40 Dose: 4 mg Documented by: Assessment/Plan This patient was seen in conjunction with Zuleyka Watt FINISHING INSPECTOR. I have independently interviewed and examined the patient and reviewed pertinent historical, laboratory, and other data. Please refer to her note for patient's presentation, findings, and recommendations. Patient was seen and examined. Seen working with speech therapy. Denies any fever or chills. No acute events overnight. Vitals were reviewed -stable Physical Exam: Gen: Appears chronically unwell, not pale, not jaundiced, alert oriented x3 CVS:HS I +II, regular, no murmurs RESP: Diminished at lung bases GI: BS present and normal, nontender, no palpable organs EXT:No edema Labs reviewed: ASSESSMENT: 1. Acute hypoxic respiratory failure 2. Suspected pneumonia, possibly gram-negative 3. Acute heart failure with reduced EF, EF of 25 to 30% 4. MAX on CKD stage IV 5. Hyperkalemia, resolved 6. Acute metabolic encephalopathy 7. CAD status post stents 8. Type II DM 9. Paroxysmal A. fib 10. History of DVT 11. Anemia 12. Hypertension Meds reviewed Plan: Work-up anemia with stool for occult blood, iron studies Continue IV Lasix Continue vancomycin and aztreonam for now Follow-up on blood cultures Repeat chest x-ray in a.m. Inpatient E&M: [id number] Subs Hosp L2
[2020-08-10] MEDS: Pantoprazole Sodium 20 MG Tablet PO (13:04)
[2020-08-10] MEDS: Aspirin 81 MG TAB.CHEW PO (13:04)
[2020-08-10] MEDS: buPROPion (XL) 150 MG TABLET.XL PO (13:04)
[2020-08-10] MEDS: Lactulose 20 GM/30 ML UDC PO ×2 (13:05→21:54)
[2020-08-10] MEDS: Isosorbide Mononitrate 30 MG Tablet PO (13:05)
[2020-08-10] MEDS: guaiFENesin 1,200 MG Tablet 1200 MG PO ×2 (13:06→21:55)
[2020-08-10] MEDS: Allopurinol 300 MG Tablet PO (13:06)
[2020-08-10] MEDS: Nystatin Powder 15gm Bottle 1 APPLIC TOPICAL ×2 (13:06→21:57)
[2020-08-10 17:31] LABS: Bedside Glucose 79 mg/dL (70-110)
[2020-08-10] MEDS: 0.9% Saline Lock 10 ML Syringe IV ×2 (19:52→21:57)
[2020-08-10] MEDS: Atorvastatin Calcium 40 MG Tablet PO (21:54)
[2020-08-10] MEDS: Carvedilol 25 MG Tablet PO (21:54)
[2020-08-10 23:05] LABS: Bedside Glucose 78 mg/dL (70-110)
[2020-08-10 23:05] LABS: Bedside Glucose 68 mg/dL (70-110)
[2020-08-10 23:05] LABS: Bedside Glucose 76 mg/dL (70-110)
[2020-08-11] VITALS (16 sets, daily range): BP systolic 93–129; BP diastolic 47–64; PULSE 60–85; RESP 16–20; TEMP 36.5–37.1; O2SAT 94–97
[2020-08-11 01:06] LABS: Bedside Glucose 103 mg/dL (70-110)
[2020-08-11] MEDS: 0.9% Saline Lock 10 ML Syringe IV ×2 (05:19→22:04)
[2020-08-11] MEDS: hydrALAZINE 25 MG Tablet PO (05:20)
[2020-08-11 06:19] LABS: Absolute Lymphocyte Count 0.62 X10^3/uL (0.83-4.51); Absolute Neutrophil Count 4.1 X10^3/uL (2.0-7.7); Basophil# 0.03 X10^3/uL; Basophil% 0.6 % (0-1); Eosinophil# 0.16 X10^3/uL; Hematocrit 29.1 % (37-47); Hemoglobin 8.8 g/dL (12.0-15.0); Lymphocyte # 0.62 X10^3/ul (4.0); Lymphocyte % 11.6 % (19-41); Mean Corp Hgb Conc 30.2 g/dL (32-36); Mean Corpuscular Hgb 28.2 pg (27.0-32.0); Mean Corpuscular Volume 93.3 fL (81-99); Mean Platelet Vol. 12.3 fl (6.2-12.0); Monocyte% 7.5 % (0-10); NRBC Flagged by Analyzer 0 % (0-5); Neutrophil # 4.12 X10^3/uL (2.7-7.7); Neutrophil % 77.1 % (47-70); POSITIVE COUNT YES; POSITIVE MORPHOLOGY YES; Platelet Count 86 K/mm3 (150-450); RBC Distribution Width CV 20.7 % (11.6-14.6); RBC Distribution Width SD 69.6 fl (35.1-43.9); Red Blood Count 3.12 M/mm3 (4.2-5.4); White Blood Count 5.3 K/mm3 (4.4-11.0)
[2020-08-11 06:28] LABS: Differential Indicated SCAN CRITERIA MET
[2020-08-11 06:35] LABS: Prothrombin Time (Protime)PT. 38.1 SECONDS (11.7-14.9)
[2020-08-11 06:38] LABS: International Normalized Ratio 3.9
[2020-08-11] MEDS: Ipratropium/Albuterol Sulfate 3 ML AMPUL.NEB INHALATION ×4 (06:39→19:29)
[2020-08-11 06:50] LABS: Bedside Glucose 96 mg/dL (70-110)
[2020-08-11 06:50] LABS: ALB/GLOB Ratio 0.5 RATIO (0.9-2.4); AST(SGOT) 39 U/L (15-37); Alanine Aminotransfer ALT/SGPT 17 U/L (13-56); Albumin, Serum 2.1 g/dL (3.2-5.0); Alkaline Phosphatase 145 U/L (45-117); Anion Gap 8 (5-15); BUN 99 mg/dL (7-18); BUN/Creat Ratio 33.6 RATIO (10-20); Calcium,Total 8.3 mg/dL (8.5-10.1); Chloride 102 mmol/L (98-107); Creatinine, Serum 2.95 mg/dL (0.55-1.02); EST Glomerular Filtration Rate 17 mL/min (>60); Est Glom Filt Rate - Afr Amer 21 mL/min (>60); Estimated Creatinine Clearance 24.44 ml/min; Globulin 4.6 g/dL (2.2-4.2); Glucose 82 mg/dL (74-106); Potassium 4.8 mmol/L (3.5-5.1); Protein, Total 6.7 g/dL (6.4-8.2); Sodium Level 136 mmol/L (136-145)
[2020-08-11 06:57] LABS: Differential Comment SCANNED
[2020-08-11 06:58] LABS: Anisocytosis 1+; Macrocytosis RARE; Microcytosis RARE
[2020-08-11 06:59] LABS: Platelet Estimate MOD DEC (ADEQ)
--- NOTE | 2020-08-11 08:10 | RAD_ITS ---
STUDY: X-RAY CHEST REASON FOR EXAM: Female, 60 years old. PNEUMONIA/ CHF TECHNIQUE: PA and lateral views of the chest. COMPARISON: 08/09/2020 FINDINGS: Markedly limited examination due to patient body habitus and radiographic technique. Cardiac device. Low lung volumes. Cardiac silhouette enlarged. Pulmonary vascularity unremarkable. Aorta unremarkable. Bibasilar opacities right greater than left. Patchy right middle lobe opacity. Upper abdomen unremarkable. Osseous structures intact. No pneumothorax. RAD/Chest PA and Lateral IMPRESSION: Patchy bibasilar opacities and small bilateral pleural effusions right greater than left. Pulmonary edema with superimposed pneumonia as clinically indicated. Electronically Signed: Estuardo Mckeon, at 18:18 EST Tel , Service support ,
[2020-08-11] MEDS: Aspirin 81 MG TAB.CHEW PO (08:46)
[2020-08-11] MEDS: Carvedilol 25 MG Tablet PO (08:47)
[2020-08-11] MEDS: Pantoprazole Sodium 20 MG Tablet PO (08:47)
[2020-08-11] MEDS: buPROPion (XL) 150 MG TABLET.XL PO (08:47)
[2020-08-11] MEDS: guaiFENesin 1,200 MG Tablet 1200 MG PO ×2 (08:48→21:39)
[2020-08-11] MEDS: Isosorbide Mononitrate 30 MG Tablet PO (08:48)
[2020-08-11] MEDS: Menthol/Lanolin/Calamine/Znox 113 GM Tube 1 APPLIC TOPICAL ×2 (08:48→21:39)
[2020-08-11] MEDS: Allopurinol 300 MG Tablet PO (08:48)
[2020-08-11] MEDS: Nystatin Powder 15gm Bottle 1 APPLIC TOPICAL ×2 (08:49→21:39)
--- NOTE | 2020-08-11 11:16 | CASEMGMT ---
[facility] faxed information to [facility] and also called her asking her to start patient's pre-cert. Plan: d/c back to [facility] pending being medically ready and pre-cert. Ly CHUNG MSW
[2020-08-11 11:50] LABS: Bedside Glucose 105 mg/dL (70-110)
[2020-08-11] MEDS: Furosemide 40 MG/4 ML Vial IV ×2 (12:26→17:55)
[2020-08-11] MEDS: Ondansetron 4 MG/2 ML Vial IV (13:13)
--- NOTE | 2020-08-11 15:18 | PCM.PROGNOTE ---
<Zuleyka Watt CD MANUFACTURING SUPERVISOR - Last Filed: 08/11/20 15:26> Patient Problems: Active and Suspected Problems (Last Reviewed 08/09/20 @ 19:[address] Aston Casiano DO) MAX (acute kidney injury) (Acute) Healthcare-associated pneumonia (Acute) Hyperkalemia (Acute) Acute respiratory failure with hypoxia (Acute) Subjective: Patient seen and examined. Feels overall improved. Oxygen now stable on room air. Denies fever, chills. - Physical Exam Vitals/I&O's: Vital Signs Temp Pulse Resp BP Pulse Ox 97.7 F L 79 18 106/54 L 95 08/11/20 10:00 08/11/20 14:41 08/11/20 14:41 08/11/20 10:00 08/11/20 10:00 Oxygen Flow Rate (L/min) 2 Oxygen Delivery Method Room Air Weight: 387 lb 12.69 oz Body Mass Index (BMI) 51.2 Finger Stick Blood Glucose 77 Intake and Output for Last 24 Hours 08/09/20 08/10/20 08/11/20 23:59 23:59 23:59 Intake Total 1740.05 / 1980.05 1830 / 1830 100 / 100 Output Total 1825 / 2075 500 / 500 Balance 1740.05 / 1030.05 5 / -245 -400 / -400 General: Alert, Oriented x3, Cooperative HEENT: Atraumatic, PERRLA, EOMI, Normocephalic Neck: Supple, No JVD, Negative Carotid Bruits Lungs: Clear to auscultation, Diminished Cardiovascular: Regular rate, No murmurs Abdomen: Bowel Sounds Present, Soft, Non Tender, Non-Distended Extremities: No clubbing, No cyanosis, Capillary Refill Less than 3 Seconds, Edema - Chronic lower extremity edema Skin: No rashes, No breakdown Musculoskeletal: No Tenderness to Palpation of Joints or Extremities, - - Right [id number] amputation Neurological: Cranial nerves II-XII grossly intact, Neuro grossly intact Psych/Mental Status: Normal Affect, Appropriate Microbiology Past 72 Hours 08/09/20 13:10 Urine Catheter - Catheter Urine Culture - Final Klebsiella pneumoniae sp pneum 08/09/20 21:15 Mucosa - Nasopharyngeal Respiratory Panel (PCR) - Final 08/09/20 13:10 Urine Catheter - Catheter Legionella Antigen - Final 08/09/20 13:10 Urine Catheter - Catheter Streptococcus pneumoniae Antigen (M - Final Laboratory Results 08/10/20 17:23: POC Glucose 79 08/10/20 21:49: POC Glucose 68 L 08/10/20 22:27: POC Glucose 76 08/10/20 23:00: POC Glucose 78 08/11/20 00:59: POC Glucose 103 08/11/20 05:30: WBC 5.3, RBC 3.12 L, Hgb 8.8 L, Hct 29.1 L, MCV 93.3, MCH 28.2, MCHC 30.2 L, RDW Std Deviation 69.6 H, RDW Coeff of Yoandy 20.7 H, Plt Count 86 L, MPV 12.3 H, Immature Gran % (Auto) 0.200, Neut % (Auto) 77.1 H, Lymph % (Auto) 11.6 L, Trimble % (Auto) 7.5, Eos % (Auto) 3.0, Baso % (Auto) 0.6, Absolute Neuts (auto) 4.1, Absolute Lymphs (auto) 0.62 L, Nucleated RBC % 0, Differential Comment SCANNED, Platelet Estimate MOD DEC, Anisocytosis 1+, Microcytosis RARE, Macrocytosis RARE 08/11/20 05:30: PT 38.1 H, INR 3.9 H* 08/11/20 05:30: Sodium 136, Potassium 4.8, Chloride 102, Carbon Dioxide 26.0, Anion Gap 8, BUN 99 H, Creatinine 2.95 H, Estim Creat Clear Calc 24.44, Est GFR (MDRD) Af Amer 21 L, Est GFR (MDRD) Non-Af 17 L, BUN/Creatinine Ratio 33.6 H, Glucose 82, Calcium 8.3 L, Total Bilirubin 0.70, AST 39 H, ALT 17, Alkaline Phosphatase 145 H, Total Protein 6.7, Albumin 2.1 L, Globulin 4.6 H, Albumin/Globulin Ratio 0.5 L 08/11/20 05:30: Ammonia 53.0 H 08/11/20 06:43: POC Glucose 96 08/11/20 11:46: POC Glucose 105 08/11/20 15:00: Vancomycin Trough Pending Current Medications Acetaminophen (Acetaminophen 325 Mg Tablet) 650 mg PO Q6H PRN PRN PRN Reason: Pain Score 1-10/Temp > 100.7 F Al Hydroxide/Mg Hydroxide (Mag Hydrox/Al Hydrox/Simeth 30 Ml Udc) 30 ml PO Q6H PRN PRN PRN Reason: Gastric Burning Albuterol Sulfate (Albuterol 2.5 Mg/3 Ml Vial.Neb.) 2.5 mg INHALATION Q2H PRN PRN PRN Reason: SHORTNESS OF BREATH Albuterol/Ipratropium (Ipratropium/Albuterol Sulfate 3 Ml Ampul.Neb) 3 ml INHALATION Q4H.RT [facility] Last Admin: 08/11/20 14:40 Dose: 3 ml Documented by: Allopurinol (Allopurinol 300 Mg Tablet) 300 mg PO DAILY [facility] Last Admin: 08/11/20 08:48 Dose: 300 mg Documented by: Aspirin (Aspirin 81 Mg Tab.Chew) 81 mg PO DAILY@0800 [facility] Last Admin: 08/11/20 08:46 Dose: 81 mg Documented by: Atorvastatin Calcium (Atorvastatin Calcium 40 Mg Tablet) 40 mg PO QHS [facility] Last Admin: 08/10/20 21:54 Dose: 40 mg Documented by: Bupropion HCl (Bupropion (Xl) 150 Mg Tablet.Xl) 150 mg PO DAILY [facility] Last Admin: 08/11/20 08:47 Dose: 150 mg Documented by: Calamine/Phenol (Menthol/Lanolin/Calamine/Znox 113 Gm Tube) 1 applic TOPICAL BID [facility]; Protocol Last Admin: 08/11/20 08:48 Dose: 1 applicatio Documented by: Carvedilol (Carvedilol 25 Mg Tablet) 25 mg PO BID [facility] Last Admin: 08/11/20 08:47 Dose: 25 mg Documented by: Docusate Sodium (Docusate Sodium 100 Mg Capsule) 200 mg PO BID [facility] Last Admin: 08/11/20 08:47 Dose: Not Given Documented by: Furosemide (Furosemide 40 Mg/4 Ml Vial) 40 mg IV BID@1000,1800 [facility] Last Admin: 08/11/20 12:26 Dose: 40 mg Documented by: Guaifenesin (Guaifenesin 1,200 Mg Tablet) 1,200 mg PO BID [facility] Last Admin: 08/11/20 08:48 Dose: 1,200 mg Documented by: Hydralazine HCl (Hydralazine 25 Mg Tablet) 25 mg PO TID [facility] Last Admin: 08/11/20 05:20 Dose: 25 mg Documented by: Vancomycin IV Pharmacy to Dose (1 ea/ Sodium Chloride) 500 mls @ 250 mls/hr IV X1 PRN; Protocol PRN Reason: Rx to Dose Aztreonam 2 gm/ Sodium (Chloride) 100 mls @ 150 mls/hr IV Q8 [facility] Stop: 08/16/20 22:01 Last Admin: 08/11/20 14:34 Dose: 150 mls/hr Documented by: Vancomycin HCl 1,500 mg/ (Sodium Chloride) 530 mls @ 250 mls/hr IV Q24H [facility] Last Infusion: 08/10/20 23:00 Dose: Infused Documented by: Sodium Chloride () 250 mls @ 15 mls/hr IV .[id number] PRN PRN Reason: Additional IVPB Infusion Last Infusion: 08/10/20 12:43 Dose: Infused Documented by: Insulin Human Lispro (Insulin Lispro 100 Unit/Ml Insuln.Pen) 0 unit SC ACHS [facility]; Protocol Last Admin: 08/11/20 12:19 Dose: Not Given Documented by: Isosorbide Mononitrate (Isosorbide Mononitrate 30 Mg Tablet) 30 mg PO DAILY [facility] Last Admin: 08/11/20 08:48 Dose: 30 mg Documented by: Nystatin (Nystatin Powder 15gm Bottle) 1 applic TOPICAL BID [facility]; Protocol Last Admin: 08/11/20 08:49 Dose: 1 applicatio Documented by: Ondansetron HCl (Ondansetron 4 Mg/2 Ml Vial) 4 mg IV Q8H PRN PRN PRN Reason: NAUSEA Last Admin: 08/11/20 13:13 Dose: 4 mg Documented by: Pantoprazole Sodium (Pantoprazole Sodium 20 Mg Tablet) 20 mg PO DAILY [facility] Last Admin: 08/11/20 08:47 Dose: 20 mg Documented by: Polyethylene Glycol (Polyethylene Glycol 3350 17 Gm Packet) 17 gm PO DAILY [facility] Last Admin: 08/11/20 08:48 Dose: Not Given Documented by: Sodium Chloride (0.9% Saline Lock 10 Ml Syringe) 10 - 40 ml IV UD PRN PRN Reason: SALINE FLUSH Last Admin: 08/11/20 05:19 Dose: 10 ml Documented by: Medical Necessity - Tobacco Use Smoking Status: Former smoker Assessment/Plan All Active Problems (Last Reviewed 08/09/20 @ 19:[address] Aston Casiano, DO) MAX (acute kidney injury) (Acute) Healthcare-associated pneumonia (Acute) Hyperkalemia (Acute) Acute respiratory failure with hypoxia (Acute) Infestation by bed bug (Resolved) 1. Acute hypoxic respiratory failure secondary to healthcare associated pneumonia and heart failure with reduced ejection fraction-on BiPAP on admission. Covid negative. Chest x-ray demonstrates bilateral infiltrates, mild CHF. Continue Azactam and Vanco. Obtain sputum culture. Strep for urine and Legionella negative. Albuterol DuoNeb aerosols. Continue supplement oxygen to maintain O2 sat above 90%. Respiratory panel negative. Oxygen now stable on room air. Repeat chest x-ray pending. 2. Acute kidney injury on chronic kidney disease stage IV with hyperkalemia-hyperkalemia resolved. Creatinine stable. Trend BMP. 3. Acute Klebsiella UTI-on antibiotics per above. 4. Metabolic encephalopathy-suspect secondary to #1/#2/#3. Brain CT shows no acute abnormality. EEG demonstrates mild diffuse encephalopathy, no epileptiform discharges. Ammonia level 53. Initiated on lactulose, repeat ammonia level in a.m. 5. Acute on chronic heart failure with reduced ejection fraction/ischemic cardiomyopathy-echo July 2020 demonstrates an EF of 25 to 30%. Chest x-ray on admission with congestion. BNP 600. Continue IV Lasix. Strict I&O. Daily weight. 6. Type 2 diabetes [id number] with sliding scale insulin. Continue home Lantus regimen. 7. Paroxysmal atrial fibrillation-continue Coumadin, carvedilol. 8. History of DVT-on anticoagulation with Coumadin. 9. Chronic normocytic anemia-at baseline. 10. Hypertension-stable, continue home carvedilol, isosorbide. 11. Hyperlipidemia-continue statin. 12. GERD-continue PPI regimen. 13. Depression/anxiety-continue home bupropion regimen. 14. History of tobacco dependence-reports she has not smoked tobacco products in several years. Encouraged continued cessation. 15. Marijuana use 16. Status post right [id number] amputation 17. Status post pacemaker placement-patient reports this was secondary to fast heart rate and atrial fibrillation. 18. Obesity-encourage diet lifestyle modifications. 19. History of left lower extremity vein grafting/bypass-continue aspirin, statin. 20. CAD with history of stents-continue aspirin, statin, beta-jeremie, isosorbide, Lasix. CODE STATUS-DNR CCA DVT prophylaxis-Coumadin This patient was seen by CATHRYN Diaz under the supervision of Dr. Blackwood. <Harmony Blackwood - Last Filed: 08/11/20 15:54> - Physical Exam Vitals/I&O's: Vital Signs Temp Pulse Resp BP Pulse Ox 97.7 F L 79 18 106/54 L 95 08/11/20 10:00 08/11/20 14:41 08/11/20 14:41 08/11/20 10:00 08/11/20 10:00 Oxygen Flow Rate (L/min) 2 Oxygen Delivery Method Room Air Weight: 175.9 kg Body Mass Index (BMI) 51.2 Finger Stick Blood Glucose 77 Intake and Output for Last 24 Hours 08/09/20 08/10/20 08/11/20 23:59 23:59 23:59 Intake Total 1740.05 / 1980.05 1830 / 1830 200 / 200 Output Total 1825 / 2075 500 / 500 Balance 1740.05 / 1030.05 5 / -245 -300 / -300 Microbiology Past 72 Hours 08/09/20 13:10 Urine Catheter - Catheter Urine Culture - Final Klebsiella pneumoniae sp pneum 08/09/20 21:15 Mucosa - Nasopharyngeal Respiratory Panel (PCR) - Final 08/09/20 13:10 Urine Catheter - Catheter Legionella Antigen - Final 08/09/20 13:10 Urine Catheter - Catheter Streptococcus pneumoniae Antigen (M - Final Laboratory Results 08/10/20 17:23: POC Glucose 79 08/10/20 21:49: POC Glucose 68 L 08/10/20 22:27: POC Glucose 76 08/10/20 23:00: POC Glucose 78 08/11/20 00:59: POC Glucose 103 08/11/20 05:30: WBC 5.3, RBC 3.12 L, Hgb 8.8 L, Hct 29.1 L, MCV 93.3, MCH 28.2, MCHC 30.2 L, RDW Std Deviation 69.6 H, RDW Coeff of Yoandy 20.7 H, Plt Count 86 L, MPV 12.3 H, Immature Gran % (Auto) 0.200, Neut % (Auto) 77.1 H, Lymph % (Auto) 11.6 L, Trimble % (Auto) 7.5, Eos % (Auto) 3.0, Baso % (Auto) 0.6, Absolute Neuts (auto) 4.1, Absolute Lymphs (auto) 0.62 L, Nucleated RBC % 0, Differential Comment SCANNED, Platelet Estimate MOD DEC, Anisocytosis 1+, Microcytosis RARE, Macrocytosis RARE 08/11/20 05:30: PT 38.1 H, INR 3.9 H* 08/11/20 05:30: Sodium 136, Potassium 4.8, Chloride 102, Carbon Dioxide 26.0, Anion Gap 8, BUN 99 H, Creatinine 2.95 H, Estim Creat Clear Calc 24.44, Est GFR (MDRD) Af Amer 21 L, Est GFR (MDRD) Non-Af 17 L, BUN/Creatinine Ratio 33.6 H, Glucose 82, Calcium 8.3 L, Total Bilirubin 0.70, AST 39 H, ALT 17, Alkaline Phosphatase 145 H, Total Protein 6.7, Albumin 2.1 L, Globulin 4.6 H, Albumin/Globulin Ratio 0.5 L 08/11/20 05:30: Ammonia 53.0 H 08/11/20 06:43: POC Glucose 96 08/11/20 11:46: POC Glucose 105 08/11/20 15:00: Vancomycin Trough Pending Current Medications Acetaminophen (Acetaminophen 325 Mg Tablet) 650 mg PO Q6H PRN PRN PRN Reason: Pain Score 1-10/Temp > 100.7 F Al Hydroxide/Mg Hydroxide (Mag Hydrox/Al Hydrox/Simeth 30 Ml Udc) 30 ml PO Q6H PRN PRN PRN Reason: Gastric Burning Albuterol Sulfate (Albuterol 2.5 Mg/3 Ml Vial.Neb.) 2.5 mg INHALATION Q2H PRN PRN PRN Reason: SHORTNESS OF BREATH Albuterol/Ipratropium (Ipratropium/Albuterol Sulfate 3 Ml Ampul.Neb) 3 ml INHALATION Q4H.RT [facility] Last Admin: 08/11/20 14:40 Dose: 3 ml Documented by: Allopurinol (Allopurinol 300 Mg Tablet) 300 mg PO DAILY [facility] Last Admin: 08/11/20 08:48 Dose: 300 mg Documented by: Aspirin (Aspirin 81 Mg Tab.Chew) 81 mg PO DAILY@0800 [facility] Last Admin: 08/11/20 08:46 Dose: 81 mg Documented by: Atorvastatin Calcium (Atorvastatin Calcium 40 Mg Tablet) 40 mg PO QHS [facility] Last Admin: 08/10/20 21:54 Dose: 40 mg Documented by: Bupropion HCl (Bupropion (Xl) 150 Mg Tablet.Xl) 150 mg PO DAILY [facility] Last Admin: 08/11/20 08:47 Dose: 150 mg Documented by: Calamine/Phenol (Menthol/Lanolin/Calamine/Znox 113 Gm Tube) 1 applic TOPICAL BID [facility]; Protocol Last Admin: 08/11/20 08:48 Dose: 1 applicatio Documented by: Carvedilol (Carvedilol 25 Mg Tablet) 25 mg PO BID [facility] Last Admin: 08/11/20 08:47 Dose: 25 mg Documented by: Docusate Sodium (Docusate Sodium 100 Mg Capsule) 200 mg PO BID [facility] Last Admin: 08/11/20 08:47 Dose: Not Given Documented by: Furosemide (Furosemide 40 Mg/4 Ml Vial) 40 mg IV BID@1000,1800 [facility] Last Admin: 08/11/20 12:26 Dose: 40 mg Documented by: Guaifenesin (Guaifenesin 1,200 Mg Tablet) 1,200 mg PO BID [facility] Last Admin: 08/11/20 08:48 Dose: 1,200 mg Documented by: Hydralazine HCl (Hydralazine 25 Mg Tablet) 25 mg PO TID [facility] Last Admin: 08/11/20 05:20 Dose: 25 mg Documented by: Vancomycin IV Pharmacy to Dose (1 ea/ Sodium Chloride) 500 mls @ 250 mls/hr IV X1 PRN; Protocol PRN Reason: Rx to Dose Aztreonam 2 gm/ Sodium (Chloride) 100 mls @ 150 mls/hr IV Q8 [facility] Stop: 08/16/20 22:01 Last Infusion: 08/11/20 15:28 Dose: Infused Documented by: Vancomycin HCl 1,500 mg/ (Sodium Chloride) 530 mls @ 250 mls/hr IV Q24H [facility] Last Infusion: 08/10/20 23:00 Dose: Infused Documented by: Sodium Chloride () 250 mls @ 15 mls/hr IV .[id number] PRN PRN Reason: Additional IVPB Infusion Last Infusion: 08/10/20 12:43 Dose: Infused Documented by: Insulin Human Lispro (Insulin Lispro 100 Unit/Ml Insuln.Pen) 0 unit SC ACHS [facility]; Protocol Last Admin: 08/11/20 12:19 Dose: Not Given Documented by: Isosorbide Mononitrate (Isosorbide Mononitrate 30 Mg Tablet) 30 mg PO DAILY [facility] Last Admin: 08/11/20 08:48 Dose: 30 mg Documented by: Lactulose (Lactulose 20 Gm/30 Ml Udc) 20 gm PO BID [facility] Nystatin (Nystatin Powder 15gm Bottle) 1 applic TOPICAL BID [facility]; Protocol Last Admin: 08/11/20 08:49 Dose: 1 applicatio Documented by: Ondansetron HCl (Ondansetron 4 Mg/2 Ml Vial) 4 mg IV Q8H PRN PRN PRN Reason: NAUSEA Last Admin: 08/11/20 13:13 Dose: 4 mg Documented by: Pantoprazole Sodium (Pantoprazole Sodium 20 Mg Tablet) 20 mg PO DAILY [facility] Last Admin: 08/11/20 08:47 Dose: 20 mg Documented by: Polyethylene Glycol (Polyethylene Glycol 3350 17 Gm Packet) 17 gm PO DAILY [facility] Last Admin: 08/11/20 08:48 Dose: Not Given Documented by: Sodium Chloride (0.9% Saline Lock 10 Ml Syringe) 10 - 40 ml IV UD PRN PRN Reason: SALINE FLUSH Last Admin: 08/11/20 05:19 Dose: 10 ml Documented by: Assessment/Plan This patient was seen in conjunction with Zuleyka Watt CD MANUFACTURING SUPERVISOR. I have independently interviewed and examined the patient and reviewed pertinent historical, laboratory, and other data. Please refer to her note for patient's presentation, findings, and recommendations. Patient was seen and examined. Denies any fever or chills. No acute events overnight. Vitals were reviewed -stable Physical Exam: Gen: Appears chronically unwell, not pale, not jaundiced, alert oriented x3, off oxygen CVS:HS I +II, regular, no murmurs RESP: Diminished at lung bases GI: BS present and normal, nontender, no palpable organs EXT:Bilateral leg david a+2, s/p right AKA Labs reviewed: ASSESSMENT: 1. Acute hypoxic respiratory failure 2. Suspected pneumonia, possibly gram-negative 3. Acute heart failure with reduced EF, EF of 25 to 30% 4. MAX on CKD stage IV 5. Hyperkalemia, resolved 6. Acute metabolic encephalopathy 7. CAD status post stents 8. Type II DM 9. Paroxysmal A. fib 10. History of DVT 11. Anemia 12. Hypertension 13. Supratherapeutic INR Meds reviewed Plan: Hold warfarin, repeat INR Continue with IV iron Continue IV Lasix Continue vancomycin and aztreonam for now Follow-up on blood cultures Inpatient E&M: 43993 Subs Hosp L2
[2020-08-11 15:51] LABS: Vancomycin, Trough Level 17.5 ug/mL (5.0-15.0)
--- NOTE | 2020-08-11 17:05 | PCM.RX.CS ---
Consult Pharmacy has been consulted to manage selected antiobiotic: Vancomycin Type of Consult: Follow-up Labs: Sodium 136 mmol/L (136-145) 08/11/20 05:30 Potassium 4.8 mmol/L (3.5-5.1) 08/11/20 05:30 Chloride 102 mmol/L (98-107) 08/11/20 05:30 Carbon Dioxide 26.0 mmol/L (21.0-32.0) 08/11/20 05:30 Anion Gap 8 (5-15) 08/11/20 05:30 BUN 99 mg/dL (7-18) H 08/11/20 05:30 Creatinine 2.95 mg/dL (0.55-1.02) H 08/11/20 05:30 Est GFR (MDRD) Af Amer 21 mL/min (>60) L 08/11/20 05:30 Est GFR (MDRD) Non-Af 17 mL/min (>60) L 08/11/20 05:30 BUN/Creatinine Ratio 33.6 RATIO (10-20) H 08/11/20 05:30 Glucose 82 mg/dL (74-106) 08/11/20 05:30 Vancomycin Trough 17.5 ug/mL (5.0-15.0) H 08/11/20 15:00 Microbiology: Microbiology 08/09/20 13:10 Urine Catheter - Catheter Urine Culture - Final Klebsiella pneumoniae sp pneum 08/09/20 21:15 Mucosa - Nasopharyngeal Respiratory Panel (PCR) - Final 08/09/20 13:10 Urine Catheter - Catheter Legionella Antigen - Final 08/09/20 13:10 Urine Catheter - Catheter Streptococcus pneumoniae Antigen (M - Final Goal Trough: 15-20 mcg/mL Pharmacy Plan for Drug Dosing: VANCOMYCIN LEVEL RECEIVED Current Vancomycin Dose: 1500mg IV Q24hr Number of Doses Received: 2 (prior to trough) +1 after trough draw Vancomycin Level: 17.5 Hours Since Last Dose: 19.25 Renal Function:2.95 Renal Function Trend: slight increase in SCr Lab/Micro: Pending Vancomycin Plan/Comments: Dose on 08/10 given >4hrs late. Trough is within goal range of 15-20, but likely lower as it was only drawn 19.25hrs from last administered dose. Will plan on drawing another trough tomorrow prior to dose to assess a true trough at that time. Continue current dose for now. Pending Level: 08/12/20 @1500 Pharmacy Service will continue to monitor and adjust dosing as required.
[2020-08-11 17:25] LABS: Bedside Glucose 119 mg/dL (70-110)
[2020-08-11] MEDS: Lactulose 20 GM/30 ML UDC PO (21:37)
[2020-08-11] MEDS: Atorvastatin Calcium 40 MG Tablet PO (21:43)
[2020-08-11 22:35] LABS: Bedside Glucose 115 mg/dL (70-110)
[2020-08-12] VITALS (21 sets, daily range): BP systolic 89–129; BP diastolic 39–69; PULSE 63–90; RESP 16–22; TEMP 36.4–36.8; O2SAT 90–98
[2020-08-12] MEDS: Ipratropium/Albuterol Sulfate 3 ML AMPUL.NEB INHALATION ×4 (06:40→20:14)
[2020-08-12 06:52] LABS: Absolute Lymphocyte Count 0.69 X10^3/uL (0.83-4.51); Absolute Neutrophil Count 3.3 X10^3/uL (2.0-7.7); Basophil# 0.02 X10^3/uL; Basophil% 0.4 % (0-1); Eosinophil# 0.16 X10^3/uL; Eosinophils% 3.4 % (0-5); Hematocrit 28.9 % (37-47); Hemoglobin 8.4 g/dL (12.0-15.0); Lymphocyte # 0.69 X10^3/ul (4.0); Lymphocyte % 14.8 % (19-41); Mean Corp Hgb Conc 29.1 g/dL (32-36); Mean Corpuscular Hgb 27.9 pg (27.0-32.0); Monocyte# 0.45 X10^3/uL; Monocyte% 9.7 % (0-10); NRBC Flagged by Analyzer 0 % (0-5); Neutrophil # 3.32 X10^3/uL (2.7-7.7); Neutrophil % 71.5 % (47-70); POSITIVE COUNT YES; POSITIVE MORPHOLOGY YES; Platelet Count 76 K/mm3 (150-450); RBC Distribution Width CV 20.5 % (11.6-14.6); RBC Distribution Width SD 70.2 fl (35.1-43.9); Red Blood Count 3.01 M/mm3 (4.2-5.4); White Blood Count 4.7 K/mm3 (4.4-11.0)
[2020-08-12 06:59] LABS: Differential Indicated SCAN CRITERIA MET
[2020-08-12 07:00] LABS: Prothrombin Time (Protime)PT. 35.5 SECONDS (11.7-14.9)
[2020-08-12 07:01] LABS: Bedside Glucose 88 mg/dL (70-110)
[2020-08-12 07:06] LABS: International Normalized Ratio 3.6
[2020-08-12 07:35] LABS: ALB/GLOB Ratio 0.4 RATIO (0.9-2.4); AST(SGOT) 34 U/L (15-37); Alanine Aminotransfer ALT/SGPT 16 U/L (13-56); Alkaline Phosphatase 145 U/L (45-117); Anion Gap 8 (5-15); BUN 102 mg/dL (7-18); BUN/Creat Ratio 31.9 RATIO (10-20); Calcium,Total 8.1 mg/dL (8.5-10.1); Chloride 102 mmol/L (98-107); EST Glomerular Filtration Rate 16 mL/min (>60); Est Glom Filt Rate - Afr Amer 19 mL/min (>60); Estimated Creatinine Clearance 22.53 ml/min; Globulin 4.7 g/dL (2.2-4.2); Glucose 92 mg/dL (74-106); Protein, Total 6.7 g/dL (6.4-8.2); Sodium Level 135 mmol/L (136-145)
--- NOTE | 2020-08-12 07:50 | PCM.PN.HOSP ---
Patient Problems: Active and Suspected Problems (Last Reviewed 08/09/20 @ 19:[address] Aston Casiano, DO) MAX (acute kidney injury) (Acute) Healthcare-associated pneumonia (Acute) Hyperkalemia (Acute) Acute respiratory failure with hypoxia (Acute) Reason for Visit: Follow-up on pneumonia/acute kidney injury/heart failure Subjective: Shunt was seen and examined. Lethargic today. No other acute events overnight. Her kidney function is abnormal now. Objective: Physical exam: General: Lethargic Cooperative HEENT: Atraumatic, PERRLA, EOMI, Normocephalic Neck: Supple, No JVD, Negative Carotid Bruits Lungs: Clear to auscultation, Diminished Cardiovascular: Regular rate, No murmurs Abdomen: Bowel Sounds Present, Soft, Non Tender, Non-Distended Extremities: No clubbing, No cyanosis, Capillary Refill Less than 3 Seconds, Edema - Chronic lower extremity edema Skin: No rashes, No breakdown Musculoskeletal: No Tenderness to Palpation of Joints or Extremities, - - Right [id number] amputation Neurological: Cranial nerves II-XII grossly intact, Neuro grossly intact Psych/Mental Status: Normal Affect, Appropriate Vitals/I&O's: Vital Signs Temp Pulse Resp BP Pulse Ox 97.6 F L 79 16 106/48 L 90 08/12/20 05:07 08/12/20 06:40 08/12/20 06:40 08/12/20 05:08 08/12/20 06:40 Oxygen Flow Rate (L/min) 2 Oxygen Delivery Method Nasal Cannula Weight: 175.9 kg Body Mass Index (BMI) 51.2 Finger Stick Blood Glucose 77 Intake and Output for Last 24 Hours 08/10/20 08/11/20 08/12/20 23:59 23:59 23:59 Intake Total 1830 / 1830 830 / 1070 340 / 340 Output Total 1825 / 2075 500 / 650 350 / 350 Balance 5 / -245 330 / 420 -10 / -10 Microbiology Past 72 Hours 08/11/20 18:45 Stool Stool Occult Blood (ANDREW) - Final Occult Blood Positive 08/09/20 13:10 Urine Catheter - Catheter Urine Culture - Final Klebsiella pneumoniae sp pneum 08/09/20 21:15 Mucosa - Nasopharyngeal Respiratory Panel (PCR) - Final 08/09/20 13:10 Urine Catheter - Catheter Legionella Antigen - Final 08/09/20 13:10 Urine Catheter - Catheter Streptococcus pneumoniae Antigen (M - Final Laboratory Results 08/11/20 11:46: POC Glucose 105 08/11/20 15:00: Vancomycin Trough 17.5 H 08/11/20 17:17: POC Glucose 119 H 08/11/20 21:45: POC Glucose 115 H 08/12/20 05:15: WBC 4.7, RBC 3.01 L, Hgb 8.4 L, Hct 28.9 L, MCV 96.0, MCH 27.9, MCHC 29.1 L, RDW Std Deviation 70.2 H, RDW Coeff of Yoandy 20.5 H, Plt Count 76 L, MPV 12.0, Immature Gran % (Auto) 0.200, Neut % (Auto) 71.5 H, Lymph % (Auto) 14.8 L, Victoria % (Auto) 9.7, Eos % (Auto) 3.4, Baso % (Auto) 0.4, Absolute Neuts (auto) 3.3, Absolute Lymphs (auto) 0.69 L, Nucleated RBC % 0 08/12/20 05:15: PT 35.5 H, INR 3.6 H* 08/12/20 05:15: Sodium 135 L, Potassium 5.0, Chloride 102, Carbon Dioxide 25.0, Anion Gap 8, BUN 102 H*, Creatinine 3.20 H, Estim Creat Clear Calc 22.53, Est GFR (MDRD) Af Amer 19 L, Est GFR (MDRD) Non-Af 16 L, BUN/Creatinine Ratio 31.9 H, Glucose 92, Calcium 8.1 L, Total Bilirubin 0.60, AST 34, ALT 16, Alkaline Phosphatase 145 H, Total Protein 6.7, Albumin 2.0 L, Globulin 4.7 H, Albumin/Globulin Ratio 0.4 L 08/12/20 05:15: Ammonia 38.0 H 08/12/20 06:56: POC Glucose 88 Current Medications Acetaminophen (Acetaminophen 325 Mg Tablet) 650 mg PO Q6H PRN PRN PRN Reason: Pain Score 1-10/Temp > 100.7 F Al Hydroxide/Mg Hydroxide (Mag Hydrox/Al Hydrox/Simeth 30 Ml Udc) 30 ml PO Q6H PRN PRN PRN Reason: Gastric Burning Albuterol Sulfate (Albuterol 2.5 Mg/3 Ml Vial.Neb.) 2.5 mg INHALATION Q2H PRN PRN PRN Reason: SHORTNESS OF BREATH Albuterol/Ipratropium (Ipratropium/Albuterol Sulfate 3 Ml Ampul.Neb) 3 ml INHALATION Q4H.RT [facility] Last Admin: 08/12/20 06:40 Dose: 3 ml Documented by: Allopurinol (Allopurinol 300 Mg Tablet) 300 mg PO DAILY [facility] Last Admin: 08/11/20 08:48 Dose: 300 mg Documented by: Aspirin (Aspirin 81 Mg Tab.Chew) 81 mg PO DAILY@0800 [facility] Last Admin: 08/11/20 08:46 Dose: 81 mg Documented by: Atorvastatin Calcium (Atorvastatin Calcium 40 Mg Tablet) 40 mg PO QHS [facility] Last Admin: 08/11/20 21:43 Dose: 40 mg Documented by: Bupropion HCl (Bupropion (Xl) 150 Mg Tablet.Xl) 150 mg PO DAILY [facility] Last Admin: 08/11/20 08:47 Dose: 150 mg Documented by: Calamine/Phenol (Menthol/Lanolin/Calamine/Znox 113 Gm Tube) 1 applic TOPICAL BID [facility]; Protocol Last Admin: 08/11/20 21:39 Dose: 1 applicatio Documented by: Carvedilol (Carvedilol 25 Mg Tablet) 25 mg PO BID [facility] Last Admin: 08/11/20 21:44 Dose: Not Given Documented by: Docusate Sodium (Docusate Sodium 100 Mg Capsule) 200 mg PO BID [facility] Last Admin: 08/11/20 22:08 Dose: Not Given Documented by: Furosemide (Furosemide 40 Mg/4 Ml Vial) 40 mg IV BID@1000,1800 [facility] Last Admin: 08/11/20 17:55 Dose: 40 mg Documented by: Guaifenesin (Guaifenesin 1,200 Mg Tablet) 1,200 mg PO BID [facility] Last Admin: 08/11/20 21:39 Dose: 1,200 mg Documented by: Hydralazine HCl (Hydralazine 25 Mg Tablet) 25 mg PO TID [facility] Last Admin: 08/12/20 05:21 Dose: Not Given Documented by: Vancomycin IV Pharmacy to Dose (1 ea/ Sodium Chloride) 500 mls @ 250 mls/hr IV X1 PRN; Protocol PRN Reason: Rx to Dose Aztreonam 2 gm/ Sodium (Chloride) 100 mls @ 150 mls/hr IV Q8 [facility] Stop: 08/16/20 22:01 Last Infusion: 08/12/20 06:05 Dose: Infused Documented by: Vancomycin HCl 1,500 mg/ (Sodium Chloride) 530 mls @ 250 mls/hr IV Q24H [facility] Last Infusion: 08/11/20 19:15 Dose: Infused Documented by: Sodium Chloride () 250 mls @ 15 mls/hr IV .[id number] PRN PRN Reason: Additional IVPB Infusion Last Infusion: 08/10/20 12:43 Dose: Infused Documented by: Insulin Human Lispro (Insulin Lispro 100 Unit/Ml Insuln.Pen) 0 unit SC ACHS [facility]; Protocol Last Admin: 08/11/20 21:45 Dose: Not Given Documented by: Isosorbide Mononitrate (Isosorbide Mononitrate 30 Mg Tablet) 30 mg PO DAILY [facility] Last Admin: 08/11/20 08:48 Dose: 30 mg Documented by: Lactulose (Lactulose 20 Gm/30 Ml Udc) 20 gm PO BID [facility] Last Admin: 08/11/20 21:37 Dose: 20 gm Documented by: Nystatin (Nystatin Powder 15gm Bottle) 1 applic TOPICAL BID [facility]; Protocol Last Admin: 08/11/20 21:39 Dose: 1 applicatio Documented by: Ondansetron HCl (Ondansetron 4 Mg/2 Ml Vial) 4 mg IV Q8H PRN PRN PRN Reason: NAUSEA Last Admin: 08/11/20 13:13 Dose: 4 mg Documented by: Pantoprazole Sodium (Pantoprazole Sodium 20 Mg Tablet) 20 mg PO DAILY [facility] Last Admin: 08/11/20 08:47 Dose: 20 mg Documented by: Polyethylene Glycol (Polyethylene Glycol 3350 17 Gm Packet) 17 gm PO DAILY [facility] Last Admin: 08/11/20 08:48 Dose: Not Given Documented by: Sodium Chloride (0.9% Saline Lock 10 Ml Syringe) 10 - 40 ml IV UD PRN PRN Reason: SALINE FLUSH Last Admin: 08/11/20 22:04 Dose: 10 ml Documented by: STROKE Vital Signs/Narrative: Vital Signs Temp Pulse Resp BP BP Pulse Ox 08/12/20 06:40 79 16 90 08/12/20 05:08 106/48 L 08/12/20 05:07 97.6 F L 90 16 108/57 L 96 Medical Necessity - Tobacco Use Smoking Status: Former smoker Assessment/Plan All Active Problems (Last Reviewed 08/09/20 @ 19:[address] Aston Casiano, DO) MAX (acute kidney injury) (Acute) Healthcare-associated pneumonia (Acute) Hyperkalemia (Acute) Acute respiratory failure with hypoxia (Acute) Infestation by bed bug (Resolved) 1. Acute hypoxic respiratory failure 2. Suspected pneumonia, possibly gram-negative 3. Acute heart failure with reduced EF, EF of 25 to 30% 4. MAX on CKD stage IV 5. Hyperkalemia, resolved 6. Acute metabolic encephalopathy 7. CAD status post stents 8. Type II DM 9. Paroxysmal A. fib 10. History of DVT 11. Anemia 12. Hypertension 13. Supratherapeutic INR Plan: Hold Lasix, Nephrology consult Repeat blood work in a.m. Follow-up on vancomycin trough Continue on lactulose and Miralax Monitor vitals closely Inpatient E&M: 18908 Subs Hosp L2
[2020-08-12 08:17] LABS: Differential Comment SCANNED
[2020-08-12 08:18] LABS: Anisocytosis 2+; Macrocytosis 1+; Microcytosis 1+; Platelet Estimate MOD DEC (ADEQ)
[2020-08-12] MEDS: Nystatin Powder 15gm Bottle 1 APPLIC TOPICAL ×2 (10:15→21:05)
[2020-08-12] MEDS: Docusate Sodium 100 MG Capsule 200 MG PO ×2 (10:16→21:06)
[2020-08-12] MEDS: Pantoprazole Sodium 20 MG Tablet PO (10:16)
[2020-08-12] MEDS: buPROPion (XL) 150 MG TABLET.XL PO (10:16)
[2020-08-12] MEDS: Carvedilol 25 MG Tablet PO (10:16)
[2020-08-12] MEDS: Allopurinol 300 MG Tablet PO (10:16)
[2020-08-12] MEDS: Isosorbide Mononitrate 30 MG Tablet PO (10:16)
[2020-08-12] MEDS: Lactulose 20 GM/30 ML UDC PO ×2 (10:16→21:06)
[2020-08-12] MEDS: Menthol/Lanolin/Calamine/Znox 113 GM Tube 1 APPLIC TOPICAL ×2 (10:16→21:05)
[2020-08-12] MEDS: Aspirin 81 MG TAB.CHEW PO (10:17)
[2020-08-12] MEDS: guaiFENesin 1,200 MG Tablet 1200 MG PO ×2 (10:17→21:07)
[2020-08-12] MEDS: Polyethylene Glycol 3350 17 GM PACKET PO (10:17)
--- NOTE | 2020-08-12 10:35 | US_ITS ---
STUDY: RENAL ULTRASOUND - COMPLETE REASON FOR EXAM: Female, 60 years old. MAX TECHNIQUE: Ultrasound evaluation of the kidneys was performed with real-time and static young-scale imaging. COMPARISON: None. FINDINGS: RIGHT KIDNEY: Normal location of the right kidney, which is normal in size. The right kidney measures 11.7 x 4.2 x 5.6 cm. There is a normal cortex of the right kidney. The renal cortex measures 1.2 cm. There is no right renal mass or cyst. There are no right renal calculi. There is no right hydronephrosis. DISTAL RIGHT URETER: There is non-visualization of the distal right ureter. There is no demonstrated right ureterovesical junction calculus. There is no visualized right ureteral jet. LEFT KIDNEY: Normal location of the left kidney, which is normal in size. The left kidney measures 11.1 x 4.6 x 6.8 cm. There is a normal cortex of the left kidney. The renal cortex measures 1.6 cm. There is no left renal mass or cyst. There are no left renal calculi. There is no left hydronephrosis. DISTAL LEFT URETER: There is non-visualization of the distal left ureter. There is no demonstrated left ureterovesical junction calculus. There is no visualized left ureteral jet. Mild ascites. Large right pleural effusion. BLADDER: The urinary bladder has a BARROS catheter. It is not distended for evaluation. US/Kidney and Bladder IMPRESSION: No renal stone or hydronephrosis. Mild ascites. Large right pleural effusion. Electronically Signed: Fritz Barahona DO at 21:12 EST Tel [phone], Service support ,
--- NOTE | 2020-08-12 10:53 | PCM.CONS.R ---
Consultation - Renal 08/12/20 PCP/ Referring MD: Requesting physician: Harmony Blackwood MD Primary care physician: Dr. Leslie Bird MD Reason for Consultation:: MAX on CKD - History of Present Illness History of Present Illness: The patient is a 60 year old F with past history of CKD stage 4, T2DM, HTN, CAD s/p PCI, HFrEF (EF 25-30%), pulmonary HTN (RVP 65 mmHg), paroxysmal atrial fibrillation, hypothyroidism, and PAD (s/p LLE bypass and R AKA). The pt was admitted in July and was seen by Dr. Wallace for MAX on CKD. Her prior SCr earlier in 2019 was 1.8 mg/dL. MAX during the last admission was thought to be due to over-diuresis. Her SCr stabilized around 2.5 mg/dL prior to discharge to SNF. The pt returned to the hospital on 08/10/20 with increased LLE edema, difficulty pivoting, and confusion. She was SOB. She was diagnosed with HAP. Nephrology is asked to see the pt because of MAX on CKD. Her SCr has increased from 2.84 mg/dL on 08/10/20 to 3.20 mg/dL today. Her confusion has resolved. There is no CP, SOB at rest, nausea or vomiting today. She has indwelling Nash which was placed on admission. She denies LUTS prior to admit. LLE is still swollen, but it is subjectively better. There is no exposure to IV contrast or NSAID. - Allergies Allergies: Allergies codeine Allergy (Verified 07/07/20 14:29) Rash latex Allergy (Verified 07/07/20 14:29) Itching Penicillins Allergy (Verified 07/07/20 14:29) Swelling dexamethasone [From Maxidex] Adverse Reaction (Verified 07/07/20 14:29) Unknown iodine Adverse Reaction (Verified 07/07/20 14:29) Itching morphine Adverse Reaction (Verified 07/07/20 14:29) Other contrast dye Allergy (Uncoded 07/07/20 14:29) GI upset GI upset - Current Medications Current Medications: Current Medications Acetaminophen (Acetaminophen 325 Mg Tablet) 650 mg PO Q6H PRN PRN PRN Reason: Pain Score 1-10/Temp > 100.7 F Al Hydroxide/Mg Hydroxide (Mag Hydrox/Al Hydrox/Simeth 30 Ml Udc) 30 ml PO Q6H PRN PRN PRN Reason: Gastric Burning Albuterol Sulfate (Albuterol 2.5 Mg/3 Ml Vial.Neb.) 2.5 mg INHALATION Q2H PRN PRN PRN Reason: SHORTNESS OF BREATH Albuterol/Ipratropium (Ipratropium/Albuterol Sulfate 3 Ml Ampul.Neb) 3 ml INHALATION Q4H.RT [facility] Last Admin: 08/12/20 06:40 Dose: 3 ml Documented by: Allopurinol (Allopurinol 300 Mg Tablet) 300 mg PO DAILY [facility] Last Admin: 08/12/20 10:16 Dose: 300 mg Documented by: Aspirin (Aspirin 81 Mg Tab.Chew) 81 mg PO DAILY@0800 [facility] Last Admin: 08/12/20 10:17 Dose: 81 mg Documented by: Atorvastatin Calcium (Atorvastatin Calcium 40 Mg Tablet) 40 mg PO QHS [facility] Last Admin: 08/11/20 21:43 Dose: 40 mg Documented by: Bupropion HCl (Bupropion (Xl) 150 Mg Tablet.Xl) 150 mg PO DAILY [facility] Last Admin: 08/12/20 10:16 Dose: 150 mg Documented by: Calamine/Phenol (Menthol/Lanolin/Calamine/Znox 113 Gm Tube) 1 applic TOPICAL BID [facility]; Protocol Last Admin: 08/12/20 10:16 Dose: 1 applicatio Documented by: Carvedilol (Carvedilol 25 Mg Tablet) 25 mg PO BID [facility] Last Admin: 08/12/20 10:16 Dose: 25 mg Documented by: Docusate Sodium (Docusate Sodium 100 Mg Capsule) 200 mg PO BID [facility] Last Admin: 08/12/20 10:16 Dose: 200 mg Documented by: Guaifenesin (Guaifenesin 1,200 Mg Tablet) 1,200 mg PO BID [facility] Last Admin: 08/12/20 10:17 Dose: 1,200 mg Documented by: Hydralazine HCl (Hydralazine 25 Mg Tablet) 25 mg PO TID [facility] Last Admin: 08/12/20 05:21 Dose: Not Given Documented by: Vancomycin IV Pharmacy to Dose (1 ea/ Sodium Chloride) 500 mls @ 250 mls/hr IV X1 PRN; Protocol PRN Reason: Rx to Dose Aztreonam 2 gm/ Sodium (Chloride) 100 mls @ 150 mls/hr IV Q8 [facility] Stop: 08/16/20 22:01 Last Infusion: 08/12/20 06:05 Dose: Infused Documented by: Vancomycin HCl 1,500 mg/ (Sodium Chloride) 530 mls @ 250 mls/hr IV Q24H [facility] Last Infusion: 08/11/20 19:15 Dose: Infused Documented by: Sodium Chloride () 250 mls @ 15 mls/hr IV .[id number] PRN PRN Reason: Additional IVPB Infusion Last Infusion: 08/10/20 12:43 Dose: Infused Documented by: Insulin Human Lispro (Insulin Lispro 100 Unit/Ml Insuln.Pen) 0 unit SC ACHS [facility]; Protocol Last Admin: 08/12/20 08:02 Dose: Not Given Documented by: Isosorbide Mononitrate (Isosorbide Mononitrate 30 Mg Tablet) 30 mg PO DAILY [facility] Last Admin: 08/12/20 10:16 Dose: 30 mg Documented by: Lactulose (Lactulose 20 Gm/30 Ml Udc) 20 gm PO BID [facility] Last Admin: 08/12/20 10:16 Dose: 20 gm Documented by: Nystatin (Nystatin Powder 15gm Bottle) 1 applic TOPICAL BID [facility]; Protocol Last Admin: 08/12/20 10:15 Dose: 1 applicatio Documented by: Ondansetron HCl (Ondansetron 4 Mg/2 Ml Vial) 4 mg IV Q8H PRN PRN PRN Reason: NAUSEA Last Admin: 08/11/20 13:13 Dose: 4 mg Documented by: Pantoprazole Sodium (Pantoprazole Sodium 20 Mg Tablet) 20 mg PO DAILY [facility] Last Admin: 08/12/20 10:16 Dose: 20 mg Documented by: Polyethylene Glycol (Polyethylene Glycol 3350 17 Gm Packet) 17 gm PO DAILY [facility] Last Admin: 08/12/20 10:17 Dose: 17 gm Documented by: Sodium Chloride (0.9% Saline Lock 10 Ml Syringe) 10 - 40 ml IV UD PRN PRN Reason: SALINE FLUSH Last Admin: 08/11/20 22:04 Dose: 10 ml Documented by: - Past Medical History Past Medical History (Chronic Problems): Chronic Problems (Last Reviewed 08/09/20 @ 19:[address] Aston Casiano DO) Heart failure (Chronic) Anemia (Chronic) Thrombocytopenia (Chronic) CKD (chronic kidney disease) stage 3, GFR 30-59 ml/min (Chronic) Asthma (Chronic) CVA (cerebral vascular accident) (Chronic) 2001 COPD (chronic obstructive pulmonary disease) (Chronic) History of PTCA (Chronic) Mid LAD bare metal stent 07/20/2002. RCA Bare metal stent 07/02/2006 History of permanent cardiac pacemaker placement (Chronic) 09/08/2013,[employer]. Dr. 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) History of tonsillectomy (Chronic) H/O: hysterectomy (Chronic) History of cholecystectomy (Chronic) H/O adenoidectomy (Chronic) HLD (hyperlipidemia) (Chronic) Coronary artery disease (Chronic) Hypothyroidism (Chronic) Atrial fibrillation (Chronic) Ischemic cardiomyopathy (Chronic) Diabetes mellitus (Chronic) type II Morbid obesity (Chronic) History of DVT of lower extremity (Chronic) Tobacco abuse (Chronic) - Past Surgical History Surgical History: adenoidectomy, cholecystectomy, hysterectomy, tonsillectomy, - - Right [id number] amputation, panniculectomy, pacemaker placement, left leg vein grafting/bypass. - Social History Smoking Status: Former smoker Alcohol: None Drugs: Marijuana - Family History Maternal History Items: Diabetes, Heart Disease, Hypertension Paternal History Items: - Review of Systems Constitutional: Reports: Malaise, Weakness. Denies: Anorexia, Chills, Fever Eyes: Denies: Blurred vision, Pain, Redness HEENT: Denies: Difficulty Hearing, Difficulty Swallowing, Head Aches, Sinus Drainage Cardiovascular: Reports: Edema. Denies: Chest Pain, Chest Pressure, Orthopnea Respiratory: Reports: Shortness of breath upon exertion. Denies: Shortness of breath at rest, Sputum production, Wheezing Gastrointestinal: Denies: Abdominal Pain, Constipation, Hematemesis, Hematochezia Genitourinary: Denies: Dysuria, Frequency, Hematuria, Hesitancy Musculoskeletal: Denies: Arm Pain, Joint stiffness, Joint swelling, Neck Pain, Shoulder Pain Skin: Denies: Pruritis, Rash Neurological: Reports: Balance problems, Incoordination. Denies: Blurred vision, Double vision Psychiatric: Denies: Anxiety, Depression, Homicidal Ideations, Suicidal Ideations Hematologic/ Lymphatic: Denies: Easy Bruising, Easy Bleeding Patient Problems: Active and Suspected Problems (Last Reviewed 08/09/20 @ 19:[address] Aston Casiano, DO) MAX (acute kidney injury) (Acute) Healthcare-associated pneumonia (Acute) Hyperkalemia (Acute) Acute respiratory failure with hypoxia (Acute) - Physical Exam Vitals/I&O's: Vital Signs Temp Pulse Resp BP Pulse Ox 98.3 F 77 18 108/54 L 97 08/12/20 10:10 08/12/20 10:10 08/12/20 10:10 08/12/20 10:10 08/12/20 10:39 Oxygen Flow Rate (L/min) 2 Oxygen Delivery Method Nasal Cannula Weight: 175.9 kg Body Mass Index (BMI) 51.2 Finger Stick Blood Glucose 77 Intake and Output for Last 24 Hours 08/10/20 08/11/20 08/12/20 23:59 23:59 23:59 Intake Total 1830 / 1830 830 / 1070 340 / 340 Output Total 1825 / 2075 500 / 650 350 / 350 Balance 5 / -245 330 / 420 -10 / -10 General: Alert, Oriented x3, Cooperative HEENT: Atraumatic, PERRLA, EOMI Oral: Moist Mucosa, - - cyanosis of lips Neck: Supple, No JVD Lungs: Clear to auscultation - anteriorly Cardiovascular: Normal S1, Normal S2, No murmurs Abdomen: Bowel Sounds Present, Soft, Non Tender, Obese Extremities: No clubbing, No cyanosis, Edema - 4+ LLE, RAKA stup is also edematous. Skin: No rashes, No breakdown Musculoskeletal: No Tenderness to Palpation of Joints or Extremities Lymphatic: No Cervical, Supraclavicular, or Inguinal Adenopathy Neurological: Cranial nerves II-XII grossly intact Psych/Mental Status: Normal Affect Microbiology Past 72 Hours 08/11/20 18:45 Stool Stool Occult Blood ([facility]REW) - Final Occult Blood Positive 08/09/20 13:10 Urine Catheter - Catheter Urine Culture - Final Klebsiella pneumoniae sp pneum 08/09/20 21:15 Mucosa - Nasopharyngeal Respiratory Panel (PCR) - Final 08/09/20 13:10 Urine Catheter - Catheter Legionella Antigen - Final 08/09/20 13:10 Urine Catheter - Catheter Streptococcus pneumoniae Antigen (M - Final Laboratory Results 08/11/20 11:46: POC Glucose 105 08/11/20 15:00: Vancomycin Trough 17.5 H 08/11/20 17:17: POC Glucose 119 H 08/11/20 21:45: POC Glucose 115 H 08/12/20 05:15: WBC 4.7, RBC 3.01 L, Hgb 8.4 L, Hct 28.9 L, MCV 96.0, MCH 27.9, MCHC 29.1 L, RDW Std Deviation 70.2 H, RDW Coeff of Yoandy 20.5 H, Plt Count 76 L, MPV 12.0, Immature Gran % (Auto) 0.200, Neut % (Auto) 71.5 H, Lymph % (Auto) 14.8 L, Perkins % (Auto) 9.7, Eos % (Auto) 3.4, Baso % (Auto) 0.4, Absolute Neuts (auto) 3.3, Absolute Lymphs (auto) 0.69 L, Nucleated RBC % 0, Differential Comment SCANNED, Platelet Estimate MOD DEC, Anisocytosis 2+, Microcytosis 1+, Macrocytosis 1+ 08/12/20 05:15: PT 35.5 H, INR 3.6 H* 08/12/20 05:15: Sodium 135 L, Potassium 5.0, Chloride 102, Carbon Dioxide 25.0, Anion Gap 8, BUN 102 H*, Creatinine 3.20 H, Estim Creat Clear Calc 22.53, Est GFR (MDRD) Af Amer 19 L, Est GFR (MDRD) Non-Af 16 L, BUN/Creatinine Ratio 31.9 H, Glucose 92, Calcium 8.1 L, Total Bilirubin 0.60, AST 34, ALT 16, Alkaline Phosphatase 145 H, Total Protein 6.7, Albumin 2.0 L, Globulin 4.7 H, Albumin/Globulin Ratio 0.4 L 08/12/20 05:15: Ammonia 38.0 H 08/12/20 06:56: POC Glucose 88 Current Medications Acetaminophen (Acetaminophen 325 Mg Tablet) 650 mg PO Q6H PRN PRN PRN Reason: Pain Score 1-10/Temp > 100.7 F Al Hydroxide/Mg Hydroxide (Mag Hydrox/Al Hydrox/Simeth 30 Ml Udc) 30 ml PO Q6H PRN PRN PRN Reason: Gastric Burning Albuterol Sulfate (Albuterol 2.5 Mg/3 Ml Vial.Neb.) 2.5 mg INHALATION Q2H PRN PRN PRN Reason: SHORTNESS OF BREATH Albuterol/Ipratropium (Ipratropium/Albuterol Sulfate 3 Ml Ampul.Neb) 3 ml INHALATION Q4H.RT [facility] Last Admin: 08/12/20 06:40 Dose: 3 ml Documented by: Allopurinol (Allopurinol 300 Mg Tablet) 300 mg PO DAILY [facility] Last Admin: 08/12/20 10:16 Dose: 300 mg Documented by: Aspirin (Aspirin 81 Mg Tab.Chew) 81 mg PO DAILY@0800 [facility] Last Admin: 08/12/20 10:17 Dose: 81 mg Documented by: Atorvastatin Calcium (Atorvastatin Calcium 40 Mg Tablet) 40 mg PO QHS [facility] Last Admin: 08/11/20 21:43 Dose: 40 mg Documented by: Bupropion HCl (Bupropion (Xl) 150 Mg Tablet.Xl) 150 mg PO DAILY [facility] Last Admin: 08/12/20 10:16 Dose: 150 mg Documented by: Calamine/Phenol (Menthol/Lanolin/Calamine/Znox 113 Gm Tube) 1 applic TOPICAL BID [facility]; Protocol Last Admin: 08/12/20 10:16 Dose: 1 applicatio Documented by: Carvedilol (Carvedilol 25 Mg Tablet) 25 mg PO BID [facility] Last Admin: 08/12/20 10:16 Dose: 25 mg Documented by: Docusate Sodium (Docusate Sodium 100 Mg Capsule) 200 mg PO BID [facility] Last Admin: 08/12/20 10:16 Dose: 200 mg Documented by: Guaifenesin (Guaifenesin 1,200 Mg Tablet) 1,200 mg PO BID [facility] Last Admin: 08/12/20 10:17 Dose: 1,200 mg Documented by: Hydralazine HCl (Hydralazine 25 Mg Tablet) 25 mg PO TID [facility] Last Admin: 08/12/20 05:21 Dose: Not Given Documented by: Vancomycin IV Pharmacy to Dose (1 ea/ Sodium Chloride) 500 mls @ 250 mls/hr IV X1 PRN; Protocol PRN Reason: Rx to Dose Aztreonam 2 gm/ Sodium (Chloride) 100 mls @ 150 mls/hr IV Q8 [facility] Stop: 08/16/20 22:01 Last Infusion: 08/12/20 06:05 Dose: Infused Documented by: Vancomycin HCl 1,500 mg/ (Sodium Chloride) 530 mls @ 250 mls/hr IV Q24H [facility] Last Infusion: 08/11/20 19:15 Dose: Infused Documented by: Sodium Chloride () 250 mls @ 15 mls/hr IV .[id number] PRN PRN Reason: Additional IVPB Infusion Last Infusion: 08/10/20 12:43 Dose: Infused Documented by: Insulin Human Lispro (Insulin Lispro 100 Unit/Ml Insuln.Pen) 0 unit SC ACHS [facility]; Protocol Last Admin: 08/12/20 08:02 Dose: Not Given Documented by: Isosorbide Mononitrate (Isosorbide Mononitrate 30 Mg Tablet) 30 mg PO DAILY [facility] Last Admin: 08/12/20 10:16 Dose: 30 mg Documented by: Lactulose (Lactulose 20 Gm/30 Ml Udc) 20 gm PO BID [facility] Last Admin: 08/12/20 10:16 Dose: 20 gm Documented by: Nystatin (Nystatin Powder 15gm Bottle) 1 applic TOPICAL BID [facility]; Protocol Last Admin: 08/12/20 10:15 Dose: 1 applicatio Documented by: Ondansetron HCl (Ondansetron 4 Mg/2 Ml Vial) 4 mg IV Q8H PRN PRN PRN Reason: NAUSEA Last Admin: 08/11/20 13:13 Dose: 4 mg Documented by: Pantoprazole Sodium (Pantoprazole Sodium 20 Mg Tablet) 20 mg PO DAILY [facility] Last Admin: 08/12/20 10:16 Dose: 20 mg Documented by: Polyethylene Glycol (Polyethylene Glycol 3350 17 Gm Packet) 17 gm PO DAILY [facility] Last Admin: 08/12/20 10:17 Dose: 17 gm Documented by: Sodium Chloride (0.9% Saline Lock 10 Ml Syringe) 10 - 40 ml IV UD PRN PRN Reason: SALINE FLUSH Last Admin: 08/11/20 22:04 Dose: 10 ml Documented by: Assessment/Plan All Active Problems (Last Reviewed 08/09/20 @ 19:[address] Aston Casiano DO) MAX (acute kidney injury) (Acute) Healthcare-associated pneumonia (Acute) Hyperkalemia (Acute) Acute respiratory failure with hypoxia (Acute) Infestation by bed bug (Resolved) 1. Acute kidney injury on chronic kidney disease stage 4. Prior baseline earlier in 2019 was 1.8 mg/dL. Her SCr was around 2.5 mg/dL during the last admission in 07/2020. This is likely her new baseline SCr. Suspect underlying CKD is from diabetic nephropathy. MAX is likely prerenal from decreased EBV due to diuresis vs CRS. Doubt other causes of MAX such as acute GN (UA did not show RBC) or AIN. Doubt obstruction but will check US to be complete. Will check urine indices. Check renal US. Hold diuretic today and reassess renal function again tomorrow. I spoke to the pt regarding possible need for dialysis. Since she has multiple co-morbidities, dialysis may not significantly prolong her life and may decrease quality of life for the remaining life expectancy. At this point, she is resolute about wanting all therapy to sustain life which includes dialysis. No urgent need for HD today, but will reassess closely. I will discuss above with Dr. Blackwood. 2. Anemia. Hgb is 8.4 but stable. Will consider adding RUPERTO if Fe store is OK. 3. hyponatremia. Mild. Serum Na is 135. No symptoms from hyponatremia. Will monitor for now. 4. HAP. Antibiotic as per hospital medicine service.
[2020-08-12 12:01] LABS: Bedside Glucose 108 mg/dL (70-110)
[2020-08-12 16:04] LABS: Vancomycin, Trough Level 23.3 ug/mL (5.0-15.0)
--- NOTE | 2020-08-12 16:48 | PCM.RX.CS ---
Consult Pharmacy has been consulted to manage selected antiobiotic: Vancomycin Type of Consult: Follow-up Suspected Infection: Pneumonia Prior Doses of Antibiotics Received/Current Regimen: 1500mg iv q24h. Labs: Sodium 135 mmol/L (136-145) L 08/12/20 05:15 Potassium 5.0 mmol/L (3.5-5.1) 08/12/20 05:15 Chloride 102 mmol/L (98-107) 08/12/20 05:15 Carbon Dioxide 25.0 mmol/L (21.0-32.0) 08/12/20 05:15 Anion Gap 8 (5-15) 08/12/20 05:15 BUN 102 mg/dL (7-18) H* 08/12/20 05:15 Creatinine 3.20 mg/dL (0.55-1.02) H 08/12/20 05:15 Est GFR (MDRD) Af Amer 19 mL/min (>60) L 08/12/20 05:15 Est GFR (MDRD) Non-Af 16 mL/min (>60) L 08/12/20 05:15 BUN/Creatinine Ratio 31.9 RATIO (10-20) H 08/12/20 05:15 Glucose 92 mg/dL (74-106) 08/12/20 05:15 Vancomycin Trough 23.3 ug/mL (5.0-15.0) H 08/12/20 15:07 Microbiology: Microbiology 08/11/20 18:45 Stool Stool Occult Blood (ANDREW) - Final Occult Blood Positive 08/09/20 13:10 Urine Catheter - Catheter Urine Culture - Final Klebsiella pneumoniae sp pneum 08/09/20 21:15 Mucosa - Nasopharyngeal Respiratory Panel (PCR) - Final 08/09/20 13:10 Urine Catheter - Catheter Legionella Antigen - Final 08/09/20 13:10 Urine Catheter - Catheter Streptococcus pneumoniae Antigen (M - Final Weight used for dosin kg Estimated Creatinine Clearance: ~34ml/min Goal Trough: 15-20 mcg/mL Pharmacy Plan for Drug Dosing: Today's renal Cr 3.2 with CrCl ~34ml/min for adjusted body weight of 115.2kg. Trough level 23.3 (goal range 15-20mcg/ml) so will hold further dosing. A random level has been ordered for 08.13.20 in AM to determine further dosing. Pharmacy Service will continue to monitor and adjust dosing as required. Follow-Up Labs: Trough Vancomycin - random level 11.13.20 @0600
[2020-08-12 17:21] LABS: Bedside Glucose 119 mg/dL (70-110)
[2020-08-12 17:59] LABS: Urea Nitrogen, Urine 452 mg/dL (NO RANGE EST.)
[2020-08-12] MEDS: 0.9% Normal Saline 1,000 ML 75 ML IV (17:59)
[2020-08-12] MEDS: 0.9% Saline Lock 10 ML Syringe IV (18:00)
[2020-08-12] MEDS: Atorvastatin Calcium 40 MG Tablet PO (21:07)
[2020-08-12 22:16] LABS: Bedside Glucose 135 mg/dL (70-110)
[2020-08-13] VITALS (20 sets, daily range): BP systolic 82–111; BP diastolic 45–67; PULSE 63–81; RESP 12–22; TEMP 36.7–37.1; O2SAT 93–95
[2020-08-13] MEDS: 0.9% Saline Lock 10 ML Syringe IV ×4 (05:22→23:22)
[2020-08-13] MEDS: Ipratropium/Albuterol Sulfate 3 ML AMPUL.NEB INHALATION ×4 (06:03→22:51)
[2020-08-13 06:20] LABS: International Normalized Ratio 3.3; Prothrombin Time (Protime)PT. 33.4 SECONDS (11.7-14.9)
[2020-08-13 06:30] LABS: Vancomycin, Random Level 25.8 ug/mL (0.0-15.0)
[2020-08-13 06:41] LABS: Albumin, Serum 1.9 g/dL (3.2-5.0); BUN 108 mg/dL (7-18); BUN/Creat Ratio 32.8 RATIO (10-20); Calcium,Total 8.2 mg/dL (8.5-10.1); Chloride 104 mmol/L (98-107); Creatinine, Serum 3.29 mg/dL (0.55-1.02); EST Glomerular Filtration Rate 15 mL/min (>60); Est Glom Filt Rate - Afr Amer 19 mL/min (>60); Estimated Creatinine Clearance 21.92 ml/min; Ferritin 107 ng/mL (8-252); Glucose 110 mg/dL (74-106); Iron 45 ug/dL (50-170); Iron Binding Capacity,Total 320 ug/dL (250-450); PERCENT IRON SATURATION 14.1 % (15.0-55.0); Phosphorus 5.6 mg/dL (2.5-4.9); Potassium 5.2 mmol/L (3.5-5.1); Sodium Level 134 mmol/L (136-145)
[2020-08-13 06:56] LABS: Bedside Glucose 113 mg/dL (70-110)
--- NOTE | 2020-08-13 07:01 | PCM.RX.CS ---
Consult Pharmacy has been consulted to manage selected antiobiotic: Vancomycin Type of Consult: Follow-up Suspected Infection: Pneumonia Prior Doses of Antibiotics Received/Current Regimen: The patient had been on 1500mg IV q24h until yesterday when it was held due to a high trough value. At least half of that dose was administered before nursing was notified by pharmacy to hold the infusion. Labs: Sodium 134 mmol/L (136-145) L 08/13/20 05:51 Potassium 5.2 mmol/L (3.5-5.1) H 08/13/20 05:51 Chloride 104 mmol/L (98-107) 08/13/20 05:51 Carbon Dioxide 24.0 mmol/L (21.0-32.0) 08/13/20 05:51 Anion Gap 8 (5-15) 08/12/20 05:15 BUN 108 mg/dL (7-18) H* 08/13/20 05:51 Creatinine 3.29 mg/dL (0.55-1.02) H 08/13/20 05:51 Est GFR (MDRD) Af Amer 19 mL/min (>60) L 08/13/20 05:51 Est GFR (MDRD) Non-Af 15 mL/min (>60) L 08/13/20 05:51 BUN/Creatinine Ratio 32.8 RATIO (10-20) H 08/13/20 05:51 Glucose 110 mg/dL (74-106) H 08/13/20 05:51 Vancomycin Trough 23.3 ug/mL (5.0-15.0) H 08/12/20 15:07 Random Vancomycin 25.8 ug/mL (0.0-15.0) H 08/13/20 05:51 Microbiology: Microbiology 08/11/20 18:45 Stool Stool Occult Blood (ANDREW) - Final Occult Blood Positive 08/09/20 13:10 Urine Catheter - Catheter Urine Culture - Final Klebsiella pneumoniae sp pneum 08/09/20 21:15 Mucosa - Nasopharyngeal Respiratory Panel (PCR) - Final 08/09/20 13:10 Urine Catheter - Catheter Legionella Antigen - Final 08/09/20 13:10 Urine Catheter - Catheter Streptococcus pneumoniae Antigen (M - Final Weight used for dosin.9 kg Estimated Creatinine Clearance: 33.6ml/min Goal Trough: 15-20 mcg/mL Pharmacy Plan for Drug Dosing: The random vancomycin level drawn this morning at 0551 came back as 25.8. This is still above goal range of 15-20 so will continue to hold dosing at this time. Will repeat another random level tomorrow morning at 0600 to determine if dosing can be restarted at that time. The patient's CrCl today is 33.6ml/min (using adjusted body weight of 115.6kg to calculate) and SCr is 3.29. Pharmacy Service will continue to monitor and adjust dosing as required. Follow-Up Labs: Trough Vancomycin - random Labs to be done on [date and time ordered]: 08/14/20 0600
--- NOTE | 2020-08-13 07:26 | PN_ITS ---
Patient Problems: Active and Suspected Problems (Last Reviewed 08/09/20 @ 19:[address] Aston Casiano, DO) MAX (acute kidney injury) (Acute) Healthcare-associated pneumonia (Acute) Hyperkalemia (Acute) Acute respiratory failure with hypoxia (Acute) Vitals/I&O's: Vital Signs Temp Pulse Resp BP Pulse Ox 98.1 F 79 18 109/57 L 94 08/13/20 05:10 08/13/20 06:49 08/13/20 06:04 08/13/20 05:22 08/13/20 05:10 Oxygen Flow Rate (L/min) 2 Oxygen Delivery Method Nasal Cannula Weight: 175.9 kg Body Mass Index (BMI) 51.2 Finger Stick Blood Glucose 77 Intake and Output for Last 24 Hours 08/11/20 08/12/20 08/13/20 23:59 23:59 23:59 Intake Total 830 / 1070 1494.75 / 1614.75 463.75 / 463.75 Output Total 500 / 650 550 / 800 450 / 450 Balance 330 / 420 944.75 / 814.75 13.75 / 13.75 Microbiology Past 72 Hours 08/11/20 18:45 Stool Stool Occult Blood (ANDREW) - Final Occult Blood Positive 08/09/20 13:10 Urine Catheter - Catheter Urine Culture - Final Klebsiella pneumoniae sp pneum Laboratory Results 08/12/20 05:15: Differential Comment SCANNED, Platelet Estimate MOD DEC, Anisocytosis 2+, Microcytosis 1+, Macrocytosis 1+ 08/12/20 05:15: Sodium 135 L, Potassium 5.0, Chloride 102, Carbon Dioxide 25.0, Anion Gap 8, BUN 102 H*, Creatinine 3.20 H, Estim Creat Clear Calc 22.53, Est GFR (MDRD) Af Amer 19 L, Est GFR (MDRD) Non-Af 16 L, BUN/Creatinine Ratio 31.9 H , Glucose 92, Calcium 8.1 L, Total Bilirubin 0.60, AST 34, ALT 16, Alkaline Phosphatase 145 H, Total Protein 6.7, Albumin 2.0 L, Globulin 4.7 H, Albumin/Globulin Ratio 0.4 L 08/12/20 11:47: POC Glucose 108 08/12/20 15:07: Vancomycin Trough 23.3 H 08/12/20 15:16: Urine Creatinine 98.40, Urine Urea Nitrogen 452 08/12/20 17:00: POC Glucose 119 H 08/12/20 21:01: POC Glucose 135 H 08/13/20 05:51: Sodium 134 L, Potassium 5.2 H, Chloride 104, Carbon Dioxide 24.0, BUN 108 H*, Creatinine 3.29 H, Estim Creat Clear Calc 21.92, Est GFR (MDRD) Af Amer 19 L, Est GFR (MDRD) Non-Af 15 L, BUN/Creatinine Ratio 32.8 H, Glucose 110 H, Calcium 8.2 L, Phosphorus 5.6 H, Iron 45 L, TIBC 320, Iron Saturation 14.1 L, Ferritin 107, Albumin 1.9 L 08/13/20 05:51: Random Vancomycin 25.8 H 08/13/20 05:51: Ammonia 66.0 H 08/13/20 05:51: PT 33.4 H, INR 3.3 08/13/20 06:53: POC Glucose 113 H Current Medications Acetaminophen (Acetaminophen 325 Mg Tablet) 650 mg PO Q6H PRN PRN PRN Reason: Pain Score 1-10/Temp > 100.7 F Al Hydroxide/Mg Hydroxide (Mag Hydrox/Al Hydrox/Simeth 30 Ml Udc) 30 ml PO Q6H PRN PRN PRN Reason: Gastric Burning Albuterol Sulfate (Albuterol 2.5 Mg/3 Ml Vial.Neb.) 2.5 mg INHALATION Q2H PRN PRN PRN Reason: SHORTNESS OF BREATH Albuterol/Ipratropium (Ipratropium/Albuterol Sulfate 3 Ml Ampul.Neb) 3 ml INHALATION Q4H.RT [facility] Last Admin: 08/13/20 06:03 Dose: 3 ml Documented by: Allopurinol (Allopurinol 300 Mg Tablet) 300 mg PO DAILY [facility] Last Admin: 08/12/20 10:16 Dose: 300 mg Documented by: Aspirin (Aspirin 81 Mg Tab.Chew) 81 mg PO DAILY@0800 [facility] Last Admin: 08/12/20 10:17 Dose: 81 mg Documented by: Atorvastatin Calcium (Atorvastatin Calcium 40 Mg Tablet) 40 mg PO QHS [facility] Last Admin: 08/12/20 21:07 Dose: 40 mg Documented by: Bupropion HCl (Bupropion (Xl) 150 Mg Tablet.Xl) 150 mg PO DAILY [facility] Last Admin: 08/12/20 10:16 Dose: 150 mg Documented by: Calamine/Phenol (Menthol/Lanolin/Calamine/Znox 113 Gm Tube) 1 applic TOPICAL BID [facility]; Protocol Last Admin: 08/12/20 21:05 Dose: 1 applicatio Documented by: Carvedilol (Carvedilol 25 Mg Tablet) 25 mg PO BID [facility] Last Admin: 08/12/20 21:06 Dose: Not Given Documented by: Docusate Sodium (Docusate Sodium 100 Mg Capsule) 200 mg PO BID [facility] Last Admin: 08/12/20 21:06 Dose: 200 mg Documented by: Guaifenesin (Guaifenesin 1,200 Mg Tablet) 1,200 mg PO BID [facility] Last Admin: 08/12/20 21:07 Dose: 1,200 mg Documented by: Hydralazine HCl (Hydralazine 25 Mg Tablet) 25 mg PO TID [facility] Last Admin: 08/13/20 05:22 Dose: Not Given Documented by: Vancomycin IV Pharmacy to Dose (1 ea/ Sodium Chloride) 500 mls @ 250 mls/hr IV X1 PRN; Protocol PRN Reason: Rx to Dose Aztreonam 2 gm/ Sodium (Chloride) 100 mls @ 150 mls/hr IV Q8 [facility] Stop: 08/16/20 22:01 Last Infusion: 08/13/20 06:18 Dose: Infused Documented by: Sodium Chloride () 250 mls @ 15 mls/hr IV .[id number] PRN PRN Reason: Additional IVPB Infusion Last Infusion: 08/10/20 12:43 Dose: Infused Documented by: Insulin Human Lispro (Insulin Lispro 100 Unit/Ml Insuln.Pen) 0 unit SC [facility]; Protocol Last Admin: 08/13/20 06:54 Dose: Not Given Documented by: Isosorbide Mononitrate (Isosorbide Mononitrate 30 Mg Tablet) 30 mg PO DAILY [facility] Last Admin: 08/12/20 10:16 Dose: 30 mg Documented by: Lactulose (Lactulose 20 Gm/30 Ml Udc) 20 gm PO BID [facility] Last Admin: 08/12/20 21:06 Dose: 20 gm Documented by: Nystatin (Nystatin Powder 15gm Bottle) 1 applic TOPICAL BID [facility]; Protocol Last Admin: 08/12/20 21:05 Dose: 1 applicatio Documented by: Ondansetron HCl (Ondansetron 4 Mg/2 Ml Vial) 4 mg IV Q8H PRN PRN PRN Reason: NAUSEA Last Admin: 08/11/20 13:13 Dose: 4 mg Documented by: Pantoprazole Sodium (Pantoprazole Sodium 20 Mg Tablet) 20 mg PO DAILY [facility] Last Admin: 08/12/20 10:16 Dose: 20 mg Documented by: Polyethylene Glycol (Polyethylene Glycol 3350 17 Gm Packet) 17 gm PO DAILY [facility] Last Admin: 08/12/20 10:17 Dose: 17 gm Documented by: Sodium Chloride (0.9% Saline Lock 10 Ml Syringe) 10 - 40 ml IV UD PRN PRN Reason: SALINE FLUSH Last Admin: 08/13/20 05:22 Dose: 10 ml Documented by: STROKE Vital Signs/Narrative: Vital Signs Temp Pulse Resp BP Pulse Ox 08/13/20 06:49 79 08/13/20 06:04 79 18 08/13/20 05:22 109/57 L 08/13/20 05:10 98.1 F 79 19 H 109/57 L 94 Medical Necessity - Tobacco Use Smoking Status: Former smoker Assessment/Plan All Active Problems (Last Reviewed 08/09/20 @ 19:[address] Aston Casiano, DO) MAX (acute kidney injury) (Acute) Healthcare-associated pneumonia (Acute) Hyperkalemia (Acute) Acute respiratory failure with hypoxia (Acute) Infestation by bed bug (Resolved) 1. Acute hypoxic respiratory failure 2. Suspected pneumonia, possibly gram-negative 3. Acute heart failure with reduced EF, EF of 25 to 30% 4. MAX on CKD stage IV 5. Hyperkalemia, resolved 6. Acute metabolic encephalopathy 7. CAD status post stents 8. Type II DM 9. Paroxysmal A. fib 10. History of DVT 11. Anemia 12. Hypertension 13. Supratherapeutic INR 14. Liver cirrhosis Plan: Discussed with nephrology; restarted on lasix Repeat blood work in a.m. Follow-up on vancomycin trough Continue on lactulose and Miralax Monitor vitals closely Inpatient E&M: [id number] Subs Hosp L2
[2020-08-13] MEDS: Aspirin 81 MG TAB.CHEW PO (08:45)
[2020-08-13] MEDS: guaiFENesin 1,200 MG Tablet 1200 MG PO ×2 (08:46→23:21)
[2020-08-13] MEDS: Menthol/Lanolin/Calamine/Znox 113 GM Tube 1 APPLIC TOPICAL ×2 (08:46→23:19)
[2020-08-13] MEDS: Lactulose 20 GM/30 ML UDC PO ×2 (08:46→23:21)
[2020-08-13] MEDS: buPROPion (XL) 150 MG TABLET.XL PO (08:46)
[2020-08-13] MEDS: Pantoprazole Sodium 20 MG Tablet PO (08:46)
[2020-08-13] MEDS: Isosorbide Mononitrate 30 MG Tablet PO (08:47)
[2020-08-13] MEDS: Docusate Sodium 100 MG Capsule 200 MG PO ×2 (08:47→23:21)
[2020-08-13] MEDS: Polyethylene Glycol 3350 17 GM PACKET PO (08:47)
[2020-08-13] MEDS: Allopurinol 300 MG Tablet PO (08:47)
[2020-08-13] MEDS: Nystatin Powder 15gm Bottle 1 APPLIC TOPICAL ×2 (08:48→23:19)
[2020-08-13] MEDS: Carvedilol 25 MG Tablet PO (08:56)
--- NOTE | 2020-08-13 11:15 | US_ITS ---
STUDY: ABDOMINAL ULTRASOUND - RIGHT UPPER QUADRANT REASON FOR VISIT: Female, 60 years old cirrhosis TECHNIQUE: Ultrasound evaluation of the right upper quadrant was performed with real-time and static forrester-scale imaging. TECHNICAL QUALITY: Adequate. COMPARISON: None. FINDINGS: Liver: The liver measures 18.9 cm. There is heterogeneous echogenicity of the liver with probable cirrhotic changes. The bile ducts are within normal limits. There is hepatic color flow. The direction of portal flow is hepatopetal. There is no demonstrated mass lesion. Gallbladder: Status post cholecystectomy. Common Bile Duct (C.B.D.): The common bile duct measures 5 mm. Pancreas: Normal size of the head and body of the pancreas. Limited visualization of the pancreatic tail. There is normal echogenicity of the pancreas. There is no demonstrated pancreatic mass or cyst. Right Kidney: Normal size of the right kidney. The right kidney measures 11.4 x 5.4 x 6.1 cm. Normal renal cortex. The right cortex measures 1.1 cm. There is no demonstrated renal mass or cyst. There is no right hydronephrosis. Ascites is noted. US/Liver IMPRESSION: Cirrhosis. Ascites. Status post cholecystectomy. Electronically Signed: Fritz Barahona DO at 17:30 EST Tel [phone], Service support ,
--- NOTE | 2020-08-13 11:34 | PCM.PN.REN ---
Patient Problems: Active and Suspected Problems (Last Reviewed 08/09/20 @ 19:[address] Aston Casiano, DO) MAX (acute kidney injury) (Acute) Healthcare-associated pneumonia (Acute) Hyperkalemia (Acute) Acute respiratory failure with hypoxia (Acute) Subjective: Following for MAX on CKD. Pt denies CP or increasing SOB despite stopping diuretic. She denies nausea or anorexia. She has loose BM but this is also gettin g better. - Physical Exam Vitals/I&O's: Vital Signs Temp Pulse Resp BP Pulse Ox 98.8 F 73 21 H 91/45 L 94 08/13/20 10:15 08/13/20 10:51 08/13/20 10:51 08/13/20 10:15 08/13/20 11:04 Oxygen Flow Rate (L/min) 2 Oxygen Delivery Method Nasal Cannula Weight: 175.9 kg Body Mass Index (BMI) 51.2 Finger Stick Blood Glucose 77 Intake and Output for Last 24 Hours 08/11/20 08/12/20 08/13/20 23:59 23:59 23:59 Intake Total 830 / 1070 1494.75 / 1614.75 463.75 / 463.75 Output Total 500 / 650 550 / 800 550 / 550 Balance 330 / 420 944.75 / 814.75 -86.25 / -86.25 General: Alert, Oriented x3 HEENT: Atraumatic Oral: Moist Mucosa Neck: Supple Lungs: Clear to auscultation - anteriorly Cardiovascular: Normal S1, Normal S2 Abdomen: Bowel Sounds Present, Soft, Non Tender, Obese Extremities: Edema - 4+ RLE. L AKA stump is edematous. Microbiology Past 72 Hours 08/11/20 18:45 Stool Stool Occult Blood (ANDREW) - Final Occult Blood Positive 08/09/20 13:10 Urine Catheter - Catheter Urine Culture - Final Klebsiella pneumoniae sp pneum Laboratory Results 08/12/20 11:47: POC Glucose 108 08/12/20 15:07: Vancomycin Trough 23.3 H 08/12/20 15:16: Urine Creatinine 98.40, Urine Urea Nitrogen 452 08/12/20 17:00: POC Glucose 119 H 08/12/20 21:01: POC Glucose 135 H 08/13/20 05:51: Sodium 134 L, Potassium 5.2 H, Chloride 104, Carbon Dioxide 24.0, BUN 108 H*, Creatinine 3.29 H, Estim Creat Clear Calc 21.92, Est GFR (MDRD) Af Amer 19 L, Est GFR (MDRD) Non-Af 15 L, BUN/Creatinine Ratio 32.8 H, Glucose 110 H, Calcium 8.2 L, Phosphorus 5.6 H, Iron 45 L, TIBC 320, Iron Saturation 14.1 L, Ferritin 107, Albumin 1.9 L 08/13/20 05:51: Random Vancomycin 25.8 H 08/13/20 05:51: Ammonia 66.0 H 08/13/20 05:51: PT 33.4 H, INR 3.3 08/13/20 06:53: POC Glucose 113 H Current Medications Acetaminophen (Acetaminophen 325 Mg Tablet) 650 mg PO Q6H PRN PRN PRN Reason: Pain Score 1-10/Temp > 100.7 F Al Hydroxide/Mg Hydroxide (Mag Hydrox/Al Hydrox/Simeth 30 Ml Udc) 30 ml PO Q6H PRN PRN PRN Reason: Gastric Burning Albuterol Sulfate (Albuterol 2.5 Mg/3 Ml Vial.Neb.) 2.5 mg INHALATION Q2H PRN PRN PRN Reason: SHORTNESS OF BREATH Albuterol/Ipratropium (Ipratropium/Albuterol Sulfate 3 Ml Ampul.Neb) 3 ml INHALATION Q4H.RT [facility] Last Admin: 08/13/20 10:44 Dose: 3 ml Documented by: Allopurinol (Allopurinol 300 Mg Tablet) 300 mg PO DAILY [facility] Last Admin: 08/13/20 08:47 Dose: 300 mg Documented by: Aspirin (Aspirin 81 Mg Tab.Chew) 81 mg PO DAILY@0800 [facility] Last Admin: 08/13/20 08:45 Dose: 81 mg Documented by: Atorvastatin Calcium (Atorvastatin Calcium 40 Mg Tablet) 40 mg PO QHS [facility] Last Admin: 08/12/20 21:07 Dose: 40 mg Documented by: Bupropion HCl (Bupropion (Xl) 150 Mg Tablet.Xl) 150 mg PO DAILY [facility] Last Admin: 08/13/20 08:46 Dose: 150 mg Documented by: Calamine/Phenol (Menthol/Lanolin/Calamine/Znox 113 Gm Tube) 1 applic TOPICAL BID [facility]; Protocol Last Admin: 08/13/20 08:46 Dose: 1 applicatio Documented by: Carvedilol (Carvedilol 25 Mg Tablet) 25 mg PO BID [facility] Last Admin: 08/13/20 08:56 Dose: 25 mg Documented by: Docusate Sodium (Docusate Sodium 100 Mg Capsule) 200 mg PO BID [facility] Last Admin: 08/13/20 08:47 Dose: 200 mg Documented by: Guaifenesin (Guaifenesin 1,200 Mg Tablet) 1,200 mg PO BID [facility] Last Admin: 08/13/20 08:46 Dose: 1,200 mg Documented by: Hydralazine HCl (Hydralazine 25 Mg Tablet) 25 mg PO TID [facility] Last Admin: 08/13/20 05:22 Dose: Not Given Documented by: Vancomycin IV Pharmacy to Dose (1 ea/ Sodium Chloride) 500 mls @ 250 mls/hr IV X1 PRN; Protocol PRN Reason: Rx to Dose Aztreonam 2 gm/ Sodium (Chloride) 100 mls @ 150 mls/hr IV Q8 [facility] Stop: 08/16/20 22:01 Last Infusion: 08/13/20 06:18 Dose: Infused Documented by: Sodium Chloride () 250 mls @ 15 mls/hr IV .[id number] PRN PRN Reason: Additional IVPB Infusion Last Infusion: 08/10/20 12:43 Dose: Infused Documented by: Insulin Human Lispro (Insulin Lispro 100 Unit/Ml Insuln.Pen) 0 unit SC ACHS [facility]; Protocol Last Admin: 08/13/20 06:54 Dose: Not Given Documented by: Isosorbide Mononitrate (Isosorbide Mononitrate 30 Mg Tablet) 30 mg PO DAILY [facility] Last Admin: 08/13/20 08:47 Dose: 30 mg Documented by: Lactulose (Lactulose 20 Gm/30 Ml Udc) 20 gm PO BID [facility] Last Admin: 08/13/20 08:46 Dose: 20 gm Documented by: Nystatin (Nystatin Powder 15gm Bottle) 1 applic TOPICAL BID [facility]; Protocol Last Admin: 08/13/20 08:48 Dose: 1 applicatio Documented by: Ondansetron HCl (Ondansetron 4 Mg/2 Ml Vial) 4 mg IV Q8H PRN PRN PRN Reason: NAUSEA Last Admin: 08/11/20 13:13 Dose: 4 mg Documented by: Pantoprazole Sodium (Pantoprazole Sodium 20 Mg Tablet) 20 mg PO DAILY [facility] Last Admin: 08/13/20 08:46 Dose: 20 mg Documented by: Polyethylene Glycol (Polyethylene Glycol 3350 17 Gm Packet) 17 gm PO DAILY [facility] Last Admin: 08/13/20 08:47 Dose: 17 gm Documented by: Sodium Chloride (0.9% Saline Lock 10 Ml Syringe) 10 - 40 ml IV UD PRN PRN Reason: SALINE FLUSH Last Admin: 08/13/20 08:46 Dose: 10 ml Documented by: Medical Necessity - Tobacco Use Smoking Status: Former smoker Assessment/Plan All Active Problems (Last Reviewed 08/09/20 @ 19:[address] Aston Casiano, DO) MAX (acute kidney injury) (Acute) Healthcare-associated pneumonia (Acute) Hyperkalemia (Acute) Acute respiratory failure with hypoxia (Acute) Infestation by bed bug (Resolved) 1. Acute kidney injury on chronic kidney disease stage 4. Prior baseline earlier in 2019 was 1.8 mg/dL. Her SCr was around 2.5 mg/dL during the last admission in 07/2020. This is likely her new baseline SCr. Suspect underlying CKD is from diabetic nephropathy. MAX is likely prerenal from cardiorenal syndrome. FEUrea is 14%. Doubt HRS as she is not oliguric. Doubt other causes of MAX such as acute GN (UA did not show RBC) or AIN. Renal US did not show obstruction. Renal function is about the same today despite holding diuretic and giving IVF. Would restart Lasix today since she is volume overloaded with pleural effusion. Reassess renal function again tomorrow. If renal function continues to worsens, she will need dialysis by early next week. I spoke to the pt regarding possible need for dialysis yesterday. Since she has multiple co-morbidities, dialysis may not significantly prolong her life and may decrease quality of life for the remaining life expectancy. At this point, she is resolute about wanting all therapy to sustain life which includes dialysis. No urgent need for HD today, but will reassess closely. Discussed with Dr. Blackwood. 2. Anemia. Hgb is 8.4 on 08/12/20 but stable. Will consider adding RUPERTO if Hgb is worse. 3. Hyponatremia. Mild. Serum Na is 134. No symptoms from hyponatremia. Will monitor for now. 4. HAP. Antibiotic as per hospital medicine service. Discussed with Dr. Blackwood
[2020-08-13 12:26] LABS: Bedside Glucose 136 mg/dL (70-110)
--- NOTE | 2020-08-13 14:02 | NURSING ---
Read and reviewed SN documentation
--- NOTE | 2020-08-13 15:28 | CASEMGMT ---
NYDIA spoke w/Susana, pt can return to [place] any time, they do not need to wait for precert. Green sheet w/transport form and covid form on chart in the unlikely event pt can return to [place] on the weekend. JANELLE Berkowitz
[2020-08-13 17:20] LABS: Bedside Glucose 113 mg/dL (70-110)
[2020-08-13] MEDS: Furosemide 40 MG/4 ML Vial IV (17:22)
[2020-08-13] MEDS: Atorvastatin Calcium 40 MG Tablet PO (23:22)
[2020-08-13] MEDS: rifAXIMin 550 MG Tablet PO (23:24)
[2020-08-13 23:41] LABS: Bedside Glucose 122 mg/dL (70-110)
[2020-08-14] VITALS (29 sets, daily range): BP systolic 75–113; BP diastolic 44–76; PULSE 72–97; RESP 12–18; TEMP 36.4–37.3; O2SAT 90–95
[2020-08-14] MEDS: Ipratropium/Albuterol Sulfate 3 ML AMPUL.NEB INHALATION ×5 (02:51→20:04)
[2020-08-14 06:51] LABS: Bedside Glucose 119 mg/dL (70-110)
--- NOTE | 2020-08-14 07:20 | PN_ITS ---
Patient Problems: Active and Suspected Problems (Last Reviewed 08/09/20 @ 19:[address] Aston Casiano, DO) MAX (acute kidney injury) (Acute) Healthcare-associated pneumonia (Acute) Hyperkalemia (Acute) Acute respiratory failure with hypoxia (Acute) Reason for Visit: Follow-up on pneumonia/acute kidney injury/heart failure Subjective: Patient was seen and examined. She appears lethargic. Blood pressures are relatively low between 70s and 80s. She has not been giving any blood pressure medication. She complains of shortness of breath. Repeat X-ray shows worsening CHF. Objective: Physical exam: General: Lethargic Cooperative HEENT: Atraumatic, PERRLA, EOMI, Normocephalic Neck: Supple, No JVD, Negative Carotid Bruits Lungs: Clear to auscultation, Diminished Cardiovascular: Regular rate, No murmurs Abdomen: Bowel Sounds Present, Soft, Non Tender, Non-Distended Extremities: No clubbing, No cyanosis, Capillary Refill Less than 3 Seconds, Edema - Chronic lower extremity edema Skin: No rashes, No breakdown Musculoskeletal: No Tenderness to Palpation of Joints or Extremities, - - Right [id number] amputation Neurological: Cranial nerves II-XII grossly intact, Neuro grossly intact Psych/Mental Status: Normal Affect, Appropriate Vitals/I&O's: Vital Signs Temp Pulse Resp BP Pulse Ox 98.8 F 79 16 93/57 L 94 08/14/20 07:00 08/14/20 07:00 08/14/20 07:00 08/14/20 07:00 08/14/20 07:00 Oxygen Flow Rate (L/min) 3 Oxygen Delivery Method Nasal Cannula Weight: 175.9 kg Body Mass Index (BMI) 51.2 Finger Stick Blood Glucose 77 Intake and Output for Last 24 Hours 08/12/20 08/13/20 08/14/20 23:59 23:59 23:59 Intake Total 1494.75 / 1614.75 803.75 / 893.75 290 / 290 Output Total 550 / 800 800 / 950 350 / 350 Balance 944.75 / 814.75 3.75 / -56.25 -60 / -60 Microbiology Past 72 Hours 08/09/20 12:30 Blood Culture (Wb) - Left Forearm Blood Culture - Preliminary No growth in 48 hours. 08/09/20 12:30 Blood Culture (Wb) - Anticubital Right Blood Culture - Preliminary No growth in 48 hours. 08/11/20 18:45 Stool Stool Occult Blood (ANDREW) - Final Occult Blood Positive 08/09/20 13:10 Urine Catheter - Catheter Urine Culture - Final Klebsiella pneumoniae sp pneum Laboratory Results 08/13/20 12:16: POC Glucose 136 H 08/13/20 17:18: POC Glucose 113 H 08/13/20 23:13: POC Glucose 122 H 08/14/20 06:46: POC Glucose 119 H Current Medications Acetaminophen (Acetaminophen 325 Mg Tablet) 650 mg PO Q6H PRN PRN PRN Reason: Pain Score 1-10/Temp > 100.7 F Al Hydroxide/Mg Hydroxide (Mag Hydrox/Al Hydrox/Simeth 30 Ml Udc) 30 ml PO Q6H PRN PRN PRN Reason: Gastric Burning Albuterol Sulfate (Albuterol 2.5 Mg/3 Ml Vial.Neb.) 2.5 mg INHALATION Q2H PRN PRN PRN Reason: SHORTNESS OF BREATH Albuterol/Ipratropium (Ipratropium/Albuterol Sulfate 3 Ml Ampul.Neb) 3 ml INHALATION Q4H.RT [facility] Last Admin: 08/14/20 06:52 Dose: 3 ml Documented by: Allopurinol (Allopurinol 300 Mg Tablet) 300 mg PO DAILY [facility] Last Admin: 08/13/20 08:47 Dose: 300 mg Documented by: Aspirin (Aspirin 81 Mg Tab.Chew) 81 mg PO DAILY@0800 [facility] Last Admin: 08/13/20 08:45 Dose: 81 mg Documented by: Atorvastatin Calcium (Atorvastatin Calcium 40 Mg Tablet) 40 mg PO QHS [facility] Last Admin: 08/13/20 23:22 Dose: 40 mg Documented by: Bupropion HCl (Bupropion (Xl) 150 Mg Tablet.Xl) 150 mg PO DAILY [facility] Last Admin: 08/13/20 08:46 Dose: 150 mg Documented by: Calamine/Phenol (Menthol/Lanolin/Calamine/Znox 113 Gm Tube) 1 applic TOPICAL BID [facility]; Protocol Last Admin: 08/13/20 23:19 Dose: 1 applicatio Documented by: Carvedilol (Carvedilol 25 Mg Tablet) 25 mg PO BID [facility] Last Admin: 11/13/20 23:20 Dose: Not Given Documented by: Docusate Sodium (Docusate Sodium 100 Mg Capsule) 200 mg PO BID [facility] Last Admin: 08/13/20 23:21 Dose: 200 mg Documented by: Furosemide (Furosemide 40 Mg/4 Ml Vial) 40 mg IV BID@1000,1800 [facility] Last Admin: 08/13/20 17:22 Dose: 40 mg Documented by: Guaifenesin (Guaifenesin 1,200 Mg Tablet) 1,200 mg PO BID [facility] Last Admin: 08/13/20 23:21 Dose: 1,200 mg Documented by: Hydralazine HCl (Hydralazine 25 Mg Tablet) 25 mg PO TID [facility] Last Admin: 08/14/20 05:00 Dose: Not Given Documented by: Vancomycin IV Pharmacy to Dose (1 ea/ Sodium Chloride) 500 mls @ 250 mls/hr IV X1 PRN; Protocol PRN Reason: Rx to Dose Aztreonam 2 gm/ Sodium (Chloride) 100 mls @ 150 mls/hr IV Q8 [facility] Stop: 08/16/20 22:01 Last Infusion: 08/14/20 06:10 Dose: Infused Documented by: Sodium Chloride () 250 mls @ 15 mls/hr IV .[id number] PRN PRN Reason: Additional IVPB Infusion Last Infusion: 08/10/20 12:43 Dose: Infused Documented by: Insulin Human Lispro (Insulin Lispro 100 Unit/Ml Insuln.Pen) 0 unit SC [facility]; Protocol Last Admin: 08/14/20 06:52 Dose: Not Given Documented by: Isosorbide Mononitrate (Isosorbide Mononitrate 30 Mg Tablet) 30 mg PO DAILY [facility] Last Admin: 08/13/20 08:47 Dose: 30 mg Documented by: Lactulose (Lactulose 20 Gm/30 Ml Udc) 20 gm PO BID [facility] Last Admin: 08/13/20 23:21 Dose: 20 gm Documented by: Nystatin (Nystatin Powder 15gm Bottle) 1 applic TOPICAL BID [facility]; Protocol Last Admin: 08/13/20 23:19 Dose: 1 applicatio Documented by: Ondansetron HCl (Ondansetron 4 Mg/2 Ml Vial) 4 mg IV Q8H PRN PRN PRN Reason: NAUSEA Last Admin: 08/11/20 13:13 Dose: 4 mg Documented by: Pantoprazole Sodium (Pantoprazole Sodium 20 Mg Tablet) 20 mg PO DAILY [facility] Last Admin: 08/13/20 08:46 Dose: 20 mg Documented by: Polyethylene Glycol (Polyethylene Glycol 3350 17 Gm Packet) 17 gm PO DAILY [facility] Last Admin: 08/13/20 08:47 Dose: 17 gm Documented by: Rifaximin (Rifaximin 550 Mg Tablet) 550 mg PO BID [facility] Last Admin: 08/13/20 23:24 Dose: 550 mg Documented by: Sodium Chloride (0.9% Saline Lock 10 Ml Syringe) 10 - 40 ml IV UD PRN PRN Reason: SALINE FLUSH Last Admin: 08/13/20 23:22 Dose: 10 ml Documented by: STROKE Vital Signs/Narrative: Vital Signs Temp Pulse Resp BP Pulse Ox 08/14/20 07:00 98.8 F 79 16 93/57 L 94 08/14/20 06:38 80 08/14/20 06:00 97.7 F L 80 13 90/46 L 93 08/14/20 05:00 98/54 L 08/14/20 04:00 98.0 F 79 15 92/53 L 95 Medical Necessity - Tobacco Use Smoking Status: Former smoker Assessment/Plan All Active Problems (Last Reviewed 08/09/20 @ 19:[address] Aston Casiano, DO) MAX (acute kidney injury) (Acute) Healthcare-associated pneumonia (Acute) Hyperkalemia (Acute) Acute respiratory failure with hypoxia (Acute) Infestation by bed bug (Resolved) 1. Acute hypoxic respiratory failure 2. Probable pneumonia, possibly gram-negative 3. Acute heart failure with reduced EF, EF of 25 to 30% 4. MAX on CKD stage IV 5. Hyperkalemia, resolved 6. Acute metabolic encephalopathy 7. Liver cirrhosis with ascites likely cardiac related 8. CAD status post stents 9. Type II DM 10. Klebsiella UTI, on IV abx 11. Acute GI 12. Paroxysmal A. fib 13. History of DVT 14. Anemia, acute on chronic blood loss anemia 15. Hypertension, now hypotension 16. Supratherapeutic INR, resolved, INR today is 2.7 Plan: With blood pressure being very low and patient still in acute CHF; discussed with nephrology; will start patient on midodrine, Lasix 20 mg IV x1 Patient may need to go to the ICU for IV pressor support to enable diuresis Patient may need dialysis sooner to assist with fluid removal She is intermittently confused, started on rifaximin for cirrhosis of the liver likely cardiac related Continue on lactulose, MiraLAX Stool for occult blood is also positive; pantoprazole increased to 40 mg p.o. twice daily instead of IV to assist in decreasing the general fluid overload state Transfuse blood below 7.0 Vancomycin trough has been elevated that could possibly contribute also to her acute MAX on CKD stage IV Vancomycin has been on hold, continue to hold Continue on aztreonam Patient overall is very ill; she is a candidate for palliative care vs Hospice Discussed in detail with the patient with regards to her care. I am not clear if patient understands clearly the gravity of her general medical condition as she appears to be intermittently confused. She however stated to me that she wants everything done to keep her alive. Review of [facility] records show that she is a DNR [facility], no intubation. Will consult pulmonology ahead of time We will continue to hold Coumadin even though INR is 2.7 in the light of GI bleed Inpatient E&M: [id number] [facility] L3
[2020-08-14 07:53] LABS: Absolute Lymphocyte Count 0.73 X10^3/uL (0.83-4.51); Absolute Neutrophil Count 2.8 X10^3/uL (2.0-7.7); Basophil# 0.03 X10^3/uL; Basophil% 0.7 % (0-1); Eosinophil# 0.17 X10^3/uL; Eosinophils% 4.2 % (0-5); Hematocrit 26.5 % (37-47); Hemoglobin 7.6 g/dL (12.0-15.0); Lymphocyte # 0.73 X10^3/ul (4.0); Lymphocyte % 17.9 % (19-41); Mean Corp Hgb Conc 28.7 g/dL (32-36); Mean Corpuscular Hgb 27.5 pg (27.0-32.0); Mean Platelet Vol. 11.4 fl (6.2-12.0); Monocyte# 0.37 X10^3/uL; Monocyte% 9.1 % (0-10); NRBC Flagged by Analyzer 0 % (0-5); Neutrophil # 2.76 X10^3/uL (2.7-7.7); Neutrophil % 67.6 % (47-70); POSITIVE COUNT YES; POSITIVE MORPHOLOGY YES; Platelet Count 80 K/mm3 (150-450); RBC Distribution Width CV 20.6 % (11.6-14.6); RBC Distribution Width SD 71.3 fl (35.1-43.9); Red Blood Count 2.76 M/mm3 (4.2-5.4); White Blood Count 4.1 K/mm3 (4.4-11.0)
[2020-08-14 08:03] LABS: Differential Indicated SCAN CRITERIA MET; International Normalized Ratio 2.7; Prothrombin Time (Protime)PT. 28.5 SECONDS (11.7-14.9)
[2020-08-14 08:36] LABS: Albumin, Serum 1.8 g/dL (3.2-5.0); BUN 114 mg/dL (7-18); BUN/Creat Ratio 33.8 RATIO (10-20); Calcium,Total 7.8 mg/dL (8.5-10.1); Chloride 104 mmol/L (98-107); Creatinine, Serum 3.37 mg/dL (0.55-1.02); EST Glomerular Filtration Rate 15 mL/min (>60); Est Glom Filt Rate - Afr Amer 18 mL/min (>60); Glucose 111 mg/dL (74-106); Phosphorus 5.4 mg/dL (2.5-4.9); Potassium 5.2 mmol/L (3.5-5.1); Sodium Level 135 mmol/L (136-145)
[2020-08-14 08:39] LABS: Vancomycin, Random Level 22.8 ug/mL (0.0-15.0)
[2020-08-14 08:48] LABS: Differential Comment SCANNED
[2020-08-14 08:49] LABS: Hypochromasia 1+; Ovalocyte 1+; Platelet Estimate MOD DEC (ADEQ)
--- NOTE | 2020-08-14 08:54 | PCM.RX.CS ---
Consult Pharmacy has been consulted to manage selected antiobiotic: Vancomycin Type of Consult: Follow-up Suspected Infection: Pneumonia Labs: Sodium 135 mmol/L (136-145) L 08/14/20 07:07 Potassium 5.2 mmol/L (3.5-5.1) H 08/14/20 07:07 Chloride 104 mmol/L (98-107) 08/14/20 07:07 Carbon Dioxide 23.0 mmol/L (21.0-32.0) 08/14/20 07:07 Anion Gap 8 (5-15) 08/12/20 05:15 BUN 114 mg/dL (7-18) H* 08/14/20 07:07 Creatinine 3.37 mg/dL (0.55-1.02) H 08/14/20 07:07 Est GFR (MDRD) Af Amer 18 mL/min (>60) L 08/14/20 07:07 Est GFR (MDRD) Non-Af 15 mL/min (>60) L 08/14/20 07:07 BUN/Creatinine Ratio 33.8 RATIO (10-20) H 08/14/20 07:07 Glucose 111 mg/dL (74-106) H 08/14/20 07:07 Vancomycin Trough 23.3 ug/mL (5.0-15.0) H 08/12/20 15:07 Random Vancomycin 22.8 ug/mL (0.0-15.0) H 08/14/20 07:07 Microbiology: Microbiology 08/09/20 12:30 Blood Culture (Wb) - Left Forearm Blood Culture - Preliminary No growth in 48 hours. 08/09/20 12:30 Blood Culture (Wb) - Anticubital Right Blood Culture - Preliminary No growth in 48 hours. 08/11/20 18:45 Stool Stool Occult Blood (ANDREW) - Final Occult Blood Positive 08/09/20 13:10 Urine Catheter - Catheter Urine Culture - Final Klebsiella pneumoniae sp pneum 08/09/20 21:15 Mucosa - Nasopharyngeal Respiratory Panel (PCR) - Final 08/09/20 13:10 Urine Catheter - Catheter Legionella Antigen - Final 08/09/20 13:10 Urine Catheter - Catheter Streptococcus pneumoniae Antigen (M - Final Goal Trough: 15-20 mcg/mL Pharmacy Plan for Drug Dosing: VANCOMYCIN LEVEL RECEIVED Current Vancomycin Dose: VANCO ON HOLD, LAST DOSE 08/12 @ 1544 Vancomycin Level: 22.8 MG/DL Hours Since Last Dose: 39 Renal Function: SCR 3.39, CRCL 32.8 USING ADJ BW OF 115.6KG Renal Function Trend: WORSENING Vancomycin Plan/Comments: RANDOM LEVEL REMAINS ABOVE GOAL RANGE. CONTINUE TO HOLD VANCOMYCIN AND GET A RANDOM LEVEL IN 24 HOURS. Pharmacy Service will continue to monitor and adjust dosing as required. Labs to be done on [date and time ordered]: RANDOM LEVEL 08/15 @ 0600
[2020-08-14] MEDS: Menthol/Lanolin/Calamine/Znox 113 GM Tube 1 APPLIC TOPICAL ×2 (09:26→21:10)
[2020-08-14] MEDS: Nystatin Powder 15gm Bottle 1 APPLIC TOPICAL ×2 (09:26→21:11)
[2020-08-14] MEDS: Lactulose 20 GM/30 ML UDC PO ×2 (09:27→21:10)
[2020-08-14] MEDS: Allopurinol 300 MG Tablet PO (09:30)
[2020-08-14] MEDS: rifAXIMin 550 MG Tablet PO ×2 (09:30→21:10)
[2020-08-14] MEDS: Aspirin 81 MG TAB.CHEW PO (09:30)
[2020-08-14] MEDS: Polyethylene Glycol 3350 17 GM PACKET PO (09:30)
[2020-08-14] MEDS: buPROPion (XL) 150 MG TABLET.XL PO (09:30)
[2020-08-14] MEDS: Docusate Sodium 100 MG Capsule 200 MG PO ×2 (09:30→21:10)
[2020-08-14] MEDS: Isosorbide Mononitrate 30 MG Tablet PO (09:30)
[2020-08-14] MEDS: guaiFENesin 1,200 MG Tablet 1200 MG PO (09:30)
[2020-08-14] MEDS: Pantoprazole Sodium 20 MG Tablet PO (09:31)
--- NOTE | 2020-08-14 10:30 | RAD_ITS ---
STUDY: X-RAY CHEST REASON FOR EXAM: Female, 60 years old. pneumonia TECHNIQUE: Single AP portable view of the chest. COMPARISON: 08/11/2020 FINDINGS: Left subclavian dual-lead AICD which is unchanged. Poor inspiration with some bibasilar atelectasis. There is no demonstrated pleural abnormality. There is moderate cardiac enlargement. Normal mediastinum and bridgett. There is prominence of the pulmonary hilar arteries and peripheral pulmonary arteries, consistent with congestive heart failure (CHF). Normal visualized aortic arch and descending thoracic aorta. Normal visualized thoracic spine. Normal visualized ribs, clavicles, and shoulders. There is no demonstrated abnormality of the visualized soft tissue structures of the upper abdomen. RAD/Chest 1 View (Portable) IMPRESSION: Mild congestive heart failure. Electronically Signed: Erickson Steinberg MD at 11:25 EST Tel , Service support ,
[2020-08-14 12:00] LABS: Bedside Glucose 158 mg/dL (70-110)
[2020-08-14] MEDS: 0.9% Saline Lock 10 ML Syringe IV ×2 (14:28→14:51)
[2020-08-14] MEDS: Furosemide 20 MG/2 ML VIAL IV (14:51)
[2020-08-14] MEDS: Midodrine HCl 5 MG Tablet 10 MG PO ×2 (16:16→21:10)
[2020-08-14 17:30] LABS: Bedside Glucose 116 mg/dL (70-110)
--- NOTE | 2020-08-14 19:13 | PN.RENAL_ITS ---
Patient Problems: Active and Suspected Problems (Last Reviewed 08/09/20 @ 19:[address] Aston Casiano, DO) MAX (acute kidney injury) (Acute) Healthcare-associated pneumonia (Acute) Hyperkalemia (Acute) Acute respiratory failure with hypoxia (Acute) Subjective: Following for MAX on CKD. Pt denies increasing SOB. There is no nausea. No diarrhea. BP has been marginal today. - Physical Exam Vitals/I&O's: Vital Signs Temp Pulse Resp BP Pulse Ox 98.6 F 78 18 87/45 L 92 08/14/20 19:00 08/14/20 19:00 08/14/20 19:00 08/14/20 19:00 08/14/20 19:00 Oxygen Flow Rate (L/min) 2 Oxygen Delivery Method Nasal Cannula Weight: 175.9 kg Body Mass Index (BMI) 51.2 Finger Stick Blood Glucose 77 Intake and Output for Last 24 Hours 08/12/20 08/13/20 08/14/20 23:59 23:59 23:59 Intake Total 1494.75 / 1614.75 803.75 / 893.75 980 / 980 Output Total 550 / 800 800 / 950 600 / 600 Balance 944.75 / 814.75 3.75 / -56.25 380 / 380 General: Alert, Oriented x3 HEENT: Atraumatic, Normocephalic Oral: Moist Mucosa Neck: Supple Lungs: Diminished - at bases Cardiovascular: Normal S1, Normal S2, No murmurs Abdomen: Bowel Sounds Present, Non Tender, Obese Extremities: Edema - 4+ LE Microbiology Past 72 Hours 08/09/20 12:30 Blood Culture (Wb) - Anticubital Right Blood Culture - Final No growth in 5 days. 08/09/20 12:30 Blood Culture (Wb) - Left Forearm Blood Culture - Final No growth in 5 days. 08/11/20 18:45 Stool Stool Occult Blood (ANDREW) - Final Occult Blood Positive Laboratory Results 08/13/20 23:13: POC Glucose 122 H 08/14/20 06:46: POC Glucose 119 H 08/14/20 07:07: PT 28.5 H, INR 2.7 08/14/20 07:07: Random Vancomycin 22.8 H 08/14/20 07:07: WBC 4.1 L, RBC 2.76 L, Hgb 7.6 L, Hct 26.5 L, MCV 96.0, MCH 27.5, MCHC 28.7 L, RDW Std Deviation 71.3 H, RDW Coeff of Yoandy 20.6 H, Plt Count 80 L, MPV 11.4, Immature Gran % (Auto) 0.500, Neut % (Auto) 67.6, Lymph % (Auto) 17.9 L, [place] % (Auto) 9.1, Eos % (Auto) 4.2, Baso % (Auto) 0.7, Absolute Neuts (auto) 2.8, Absolute Lymphs (auto) 0.73 L, Nucleated RBC % 0, Differential Comment SCANNED, Platelet Estimate MOD DEC, Hypochromasia 1+, Ovalocytes 1+ 08/14/20 07:07: Sodium 135 L, Potassium 5.2 H, Chloride 104, Carbon Dioxide 23.0, BUN 114 H*, Creatinine 3.37 H, Estim Creat Clear Calc 21.40, Est GFR (MDRD) Af Amer 18 L, Est GFR (MDRD) Non-Af 15 L, BUN/Creatinine Ratio 33.8 H, Glucose 111 H, Calcium 7.8 L, Phosphorus 5.4 H, Albumin 1.8 L 08/14/20 11:35: POC Glucose 158 H 08/14/20 16:31: POC Glucose 116 H Current Medications Acetaminophen (Acetaminophen 325 Mg Tablet) 650 mg PO Q6H PRN PRN PRN Reason: Pain Score 1-10/Temp > 100.7 F Al Hydroxide/Mg Hydroxide (Mag Hydrox/Al Hydrox/Simeth 30 Ml Udc) 30 ml PO Q6H PRN PRN PRN Reason: Gastric Burning Albuterol Sulfate (Albuterol 2.5 Mg/3 Ml Vial.Neb.) 2.5 mg INHALATION Q2H PRN PRN PRN Reason: SHORTNESS OF BREATH Albuterol/Ipratropium (Ipratropium/Albuterol Sulfate 3 Ml Ampul.Neb) 3 ml INHALATION Q4H.RT [facility] Last Admin: 08/14/20 14:45 Dose: 3 ml Documented by: Allopurinol (Allopurinol 300 Mg Tablet) 300 mg PO DAILY [facility] Last Admin: 08/14/20 09:30 Dose: 300 mg Documented by: Aspirin (Aspirin 81 Mg Tab.Chew) 81 mg PO DAILY@0800 [facility] Last Admin: 08/14/20 09:30 Dose: 81 mg Documented by: Atorvastatin Calcium (Atorvastatin Calcium 40 Mg Tablet) 40 mg PO QHS [facility] Last Admin: 08/13/20 23:22 Dose: 40 mg Documented by: Bupropion HCl (Bupropion (Xl) 150 Mg Tablet.Xl) 150 mg PO DAILY [facility] Last Admin: 08/14/20 09:30 Dose: 150 mg Documented by: Calamine/Phenol (Menthol/Lanolin/Calamine/Znox 113 Gm Tube) 1 applic TOPICAL BID [facility]; Protocol Last Admin: 08/14/20 09:26 Dose: 1 applicatio Documented by: Docusate Sodium (Docusate Sodium 100 Mg Capsule) 200 mg PO BID [facility] Last Admin: 08/14/20 09:30 Dose: 200 mg Documented by: Furosemide (Furosemide 40 Mg/4 Ml Vial) 40 mg IV BID@1000,1800 [facility] Last Admin: 08/14/20 18:23 Dose: Not Given Documented by: Vancomycin IV Pharmacy to Dose (1 ea/ Sodium Chloride) 500 mls @ 250 mls/hr IV X1 PRN; Protocol PRN Reason: Rx to Dose Aztreonam 2 gm/ Sodium (Chloride) 100 mls @ 150 mls/hr IV Q8 [facility] Stop: 08/16/20 22:01 Last Infusion: 08/14/20 15:26 Dose: Infused Documented by: Sodium Chloride () 250 mls @ 15 mls/hr IV .[id number] PRN PRN Reason: Additional IVPB Infusion Last Infusion: 08/10/20 12:43 Dose: Infused Documented by: Insulin Human Lispro (Insulin Lispro 100 Unit/Ml Insuln.Pen) 0 unit SC [facility]; Protocol Last Admin: 08/14/20 16:31 Dose: Not Given Documented by: Lactulose (Lactulose 20 Gm/30 Ml Udc) 20 gm PO BID [facility] Last Admin: 08/14/20 09:27 Dose: 20 gm Documented by: Midodrine (Midodrine Hcl 5 Mg Tablet) 10 mg PO TID [facility] Last Admin: 08/14/20 16:16 Dose: 10 mg Documented by: Nystatin (Nystatin Powder 15gm Bottle) 1 applic TOPICAL BID [facility]; Protocol Last Admin: 08/14/20 09:26 Dose: 1 applicatio Documented by: Ondansetron HCl (Ondansetron 4 Mg/2 Ml Vial) 4 mg IV Q8H PRN PRN PRN Reason: NAUSEA Last Admin: 08/11/20 13:13 Dose: 4 mg Documented by: Pantoprazole Sodium (Pantoprazole Sodium 40 Mg Tablet) 40 mg PO BID [facility] Polyethylene Glycol (Polyethylene Glycol 3350 17 Gm Packet) 17 gm PO DAILY [facility] Last Admin: 08/14/20 09:30 Dose: 17 gm Documented by: Rifaximin (Rifaximin 550 Mg Tablet) 550 mg PO BID [facility] Last Admin: 08/14/20 09:30 Dose: 550 mg Documented by: Sodium Chloride (0.9% Saline Lock 10 Ml Syringe) 10 - 40 ml IV UD PRN PRN Reason: SALINE FLUSH Last Admin: 08/14/20 14:51 Dose: 10 ml Documented by: Medical Necessity - Tobacco Use Smoking Status: Former smoker Assessment/Plan All Active Problems (Last Reviewed 08/09/20 @ 19:[address] Aston Casiano, DO) MAX (acute kidney injury) (Acute) Healthcare-associated pneumonia (Acute) Hyperkalemia (Acute) Acute respiratory failure with hypoxia (Acute) Infestation by bed bug (Resolved) 1. Acute kidney injury on chronic kidney disease stage 4. Prior baseline earlier in 2019 was 1.8 mg/dL. Her SCr was around 2.5 mg/dL during the last admission in 07/2020. This is likely her new baseline SCr. Suspect underlying CKD is from diabetic nephropathy. MAX is likely prerenal from cardiorenal syndrome. FEUrea was 14% on 08/12/20. Another possibility is HRS as urine output is declining. Doubt other causes of MAX such as acute GN (UA did not show RBC) or AIN. Renal US did not show obstruction. Renal function is slowly declining despite holding diuretic and giving IVF. Restarted Lasix yesterday (08/03) since she is volume overloaded with pleural effusion. However, dose was held earlier because of hypotension. If renal function continues to worsens, she will need dialysis by early next week. I spoke to the pt regarding possible need for dialysis yesterday. Since she has multiple co-morbidities, dialysis may not significantly prolong her life and may decrease quality of life for the remaining life expectancy. At this point, she is resolute about wanting all therapy to sustain life which includes dialysis. No urgent need for HD today, but will reassess closely. Will discuss with Dr. Blackwood. 2. Anemia. Hgb is 7.6. Follow Hgb. 3. Hypercoagulation. INR is 2.7 today. This may limit her from getting tunneled catheter. 4. Hyponatremia. Mild. Serum Na is 135. No symptoms from hyponatremia. Will monitor for now. 4. HAP. Antibiotic as per hospital medicine service. Discussed with Dr. Blackwood
[2020-08-14] MEDS: Atorvastatin Calcium 40 MG Tablet PO (21:10)
[2020-08-14] MEDS: Pantoprazole Sodium 40 MG Tablet PO (21:14)
[2020-08-14 21:26] LABS: Bedside Glucose 137 mg/dL (70-110)
[2020-08-15] VITALS (17 sets, daily range): BP systolic 101–136; BP diastolic 52–69; PULSE 75–80; RESP 14–19; TEMP 36.7–37.1; O2SAT 92–96
[2020-08-15 05:37] LABS: Absolute Lymphocyte Count 0.75 X10^3/uL (0.83-4.51); Absolute Neutrophil Count 3.7 X10^3/uL (2.0-7.7); Basophil# 0.03 X10^3/uL; Basophil% 0.6 % (0-1); Eosinophil# 0.18 X10^3/uL; Eosinophils% 3.6 % (0-5); Hematocrit 27.8 % (37-47); Hemoglobin 8.1 g/dL (12.0-15.0); Lymphocyte # 0.75 X10^3/ul (4.0); Lymphocyte % 14.9 % (19-41); Mean Corp Hgb Conc 29.1 g/dL (32-36); Mean Corpuscular Hgb 27.8 pg (27.0-32.0); Mean Corpuscular Volume 95.5 fL (81-99); Mean Platelet Vol. 11.5 fl (6.2-12.0); Monocyte% 7.9 % (0-10); NRBC Flagged by Analyzer 0 % (0-5); Neutrophil # 3.67 X10^3/uL (2.7-7.7); Neutrophil % 72.6 % (47-70); POSITIVE MORPHOLOGY YES; Platelet Count 101 K/mm3 (150-450); RBC Distribution Width CV 20.5 % (11.6-14.6); RBC Distribution Width SD 70.9 fl (35.1-43.9); Red Blood Count 2.91 M/mm3 (4.2-5.4); White Blood Count 5.1 K/mm3 (4.4-11.0)
[2020-08-15] MEDS: Midodrine HCl 5 MG Tablet 10 MG PO ×3 (05:45→20:50)
[2020-08-15 05:51] LABS: Differential Indicated SCAN CRITERIA MET
[2020-08-15 05:58] LABS: International Normalized Ratio 2.4; Prothrombin Time (Protime)PT. 25.3 SECONDS (11.7-14.9)
[2020-08-15 06:01] LABS: Bedside Glucose 133 mg/dL (70-110)
[2020-08-15 06:07] LABS: Vancomycin, Random Level 21.1 ug/mL (0.0-15.0)
[2020-08-15 06:15] LABS: Anisocytosis 2+; Differential Comment SCANNED; Hypochromasia 2+
[2020-08-15 06:29] LABS: ALB/GLOB Ratio 0.4 RATIO (0.9-2.4); AST(SGOT) 33 U/L (15-37); Alanine Aminotransfer ALT/SGPT 19 U/L (13-56); Albumin, Serum 1.8 g/dL (3.2-5.0); Alkaline Phosphatase 181 U/L (45-117); Anion Gap 8 (5-15); BUN 115 mg/dL (7-18); BUN/Creat Ratio 32.3 RATIO (10-20); Chloride 103 mmol/L (98-107); Creatinine, Serum 3.56 mg/dL (0.55-1.02); EST Glomerular Filtration Rate 14 mL/min (>60); Est Glom Filt Rate - Afr Amer 17 mL/min (>60); Estimated Creatinine Clearance 20.25 ml/min; Globulin 4.8 g/dL (2.2-4.2); Glucose 129 mg/dL (74-106); Potassium 5.2 mmol/L (3.5-5.1); Protein, Total 6.6 g/dL (6.4-8.2); Sodium Level 136 mmol/L (136-145)
[2020-08-15] MEDS: Ipratropium/Albuterol Sulfate 3 ML AMPUL.NEB INHALATION ×3 (06:46→20:26)
--- NOTE | 2020-08-15 07:02 | PCM.RX.CS ---
Consult Pharmacy has been consulted to manage selected antiobiotic: Vancomycin Type of Consult: Follow-up Suspected Infection: Pneumonia Labs: Sodium 136 mmol/L (136-145) 08/15/20 05:15 Potassium 5.2 mmol/L (3.5-5.1) H 08/15/20 05:15 Chloride 103 mmol/L (98-107) 08/15/20 05:15 Carbon Dioxide 25.0 mmol/L (21.0-32.0) 08/15/20 05:15 Anion Gap 8 (5-15) 08/15/20 05:15 BUN 115 mg/dL (7-18) H* 08/15/20 05:15 Creatinine 3.56 mg/dL (0.55-1.02) H 08/15/20 05:15 Est GFR (MDRD) Af Amer 17 mL/min (>60) L 08/15/20 05:15 Est GFR (MDRD) Non-Af 14 mL/min (>60) L 08/15/20 05:15 BUN/Creatinine Ratio 32.3 RATIO (10-20) H 08/15/20 05:15 Glucose 129 mg/dL (74-106) H 08/15/20 05:15 Vancomycin Trough 23.3 ug/mL (5.0-15.0) H 08/12/20 15:07 Random Vancomycin 21.1 ug/mL (0.0-15.0) H 08/15/20 05:15 Microbiology: Microbiology 08/09/20 12:30 Blood Culture (Wb) - Anticubital Right Blood Culture - Final No growth in 5 days. 08/09/20 12:30 Blood Culture (Wb) - Left Forearm Blood Culture - Final No growth in 5 days. 08/11/20 18:45 Stool Stool Occult Blood (ANDREW) - Final Occult Blood Positive 08/09/20 13:10 Urine Catheter - Catheter Urine Culture - Final Klebsiella pneumoniae sp pneum 08/09/20 21:15 Mucosa - Nasopharyngeal Respiratory Panel (PCR) - Final 08/09/20 13:10 Urine Catheter - Catheter Legionella Antigen - Final 08/09/20 13:10 Urine Catheter - Catheter Streptococcus pneumoniae Antigen (M - Final Weight used for dosin.9 kg Estimated Creatinine Clearance: 20 Goal Trough: 15-20 mcg/mL Pharmacy Plan for Drug Dosing: Random vancomycin level was still high at 21.1 this morning. Will again hold the dose and redraw level 08/16/20. Pharmacy Service will continue to monitor and adjust dosing as required. Follow-Up Labs: Trough Vancomycin - random Labs to be done on [date and time ordered]: 08/16/20 @0600
--- NOTE | 2020-08-15 07:35 | PN_ITS ---
Patient Problems: Active and Suspected Problems (Last Reviewed 08/09/20 @ 19:[address] Aston Casiano, DO) MAX (acute kidney injury) (Acute) Healthcare-associated pneumonia (Acute) Hyperkalemia (Acute) Acute respiratory failure with hypoxia (Acute) Reason for Visit: Follow-up on pneumonia/acute kidney injury/heart failure Subjective: Patient was seen and examined. Her BP appears improved on midodrine. She is more confused, lethargic. Responds to her name and goes back to sleep. Objective: Physical exam: General: Lethargic Cooperative HEENT: Atraumatic, PERRLA, EOMI, Normocephalic Neck: Supple, No JVD, Negative Carotid Bruits Lungs: Clear to auscultation, Diminished Cardiovascular: Regular rate, No murmurs Abdomen: Bowel Sounds Present, Soft, Non Tender, Non-Distended Extremities: No clubbing, No cyanosis, Capillary Refill Less than 3 Seconds, Edema - Chronic lower extremity edema +3-4 Skin: No rashes, No breakdown Musculoskeletal: No Tenderness to Palpation of Joints or Extremities, - - Right [id number] amputation Neurological: Cranial nerves II-XII grossly intact, Neuro grossly intact Psych/Mental Status: Normal Affect, Appropriate Vitals/I&O's: Vital Signs Temp Pulse Resp BP Pulse Ox 98.1 F 78 16 101/56 L 94 08/15/20 03:30 08/15/20 06:31 08/15/20 03:30 08/15/20 03:30 08/15/20 03:30 Oxygen Flow Rate (L/min) 2 Oxygen Delivery Method Nasal Cannula Weight: 175.9 kg Body Mass Index (BMI) 51.2 Finger Stick Blood Glucose 77 Intake and Output for Last 24 Hours 08/13/20 08/14/20 08/15/20 23:59 23:59 23:59 Intake Total 803.75 / 893.75 1072.5 / 1122.5 150 / 150 Output Total 800 / 950 600 / 750 350 / 350 Balance 3.75 / -56.25 472.5 / 372.5 -200 / -200 Microbiology Past 72 Hours 08/09/20 12:30 Blood Culture (Wb) - Anticubital Right Blood Culture - Final No growth in 5 days. 08/09/20 12:30 Blood Culture (Wb) - Left Forearm Blood Culture - Final No growth in 5 days. Laboratory Results 08/14/20 07:07: PT 28.5 H, INR 2.7 08/14/20 07:07: Random Vancomycin 22.8 H 08/14/20 07:07: WBC 4.1 L, RBC 2.76 L, Hgb 7.6 L, Hct 26.5 L, MCV 96.0, MCH 27.5, MCHC 28.7 L, RDW Std Deviation 71.3 H, RDW Coeff of Yoandy 20.6 H, Plt Count 80 L, MPV 11.4, Immature Gran % (Auto) 0.500, Neut % (Auto) 67.6, Lymph % (Auto) 17.9 L, [place] % (Auto) 9.1, Eos % (Auto) 4.2, Baso % (Auto) 0.7, Absolute Neuts (auto) 2.8, Absolute Lymphs (auto) 0.73 L, Nucleated RBC % 0, Differential Comment SCANNED, Platelet Estimate MOD DEC, Hypochromasia 1+, Ovalocytes 1+ 08/14/20 07:07: Sodium 135 L, Potassium 5.2 H, Chloride 104, Carbon Dioxide 23.0, BUN 114 H*, Creatinine 3.37 H, Estim Creat Clear Calc 21.40, Est GFR (MDRD) Af Amer 18 L, Est GFR (MDRD) Non-Af 15 L, BUN/Creatinine Ratio 33.8 H, Glucose 111 H, Calcium 7.8 L, Phosphorus 5.4 H, Albumin 1.8 L 08/14/20 11:35: POC Glucose 158 H 08/14/20 16:31: POC Glucose 116 H 08/14/20 21:06: POC Glucose 137 H 08/15/20 05:15: PT 25.3 H, INR 2.4 08/15/20 05:15: WBC 5.1, RBC 2.91 L, Hgb 8.1 L, Hct 27.8 L, MCV 95.5, MCH 27.8, MCHC 29.1 L, RDW Std Deviation 70.9 H, RDW Coeff of Yonady 20.5 H, Plt Count 101 L, MPV 11.5, Immature Gran % (Auto) 0.400, Neut % (Auto) 72.6 H, Lymph % (Auto) 14.9 L, [place] % (Auto) 7.9, Eos % (Auto) 3.6, Baso % (Auto) 0.6, Absolute Neuts (auto) 3.7, Absolute Lymphs (auto) 0.75 L, Nucleated RBC % 0, Differential Comment SCANNED, Hypochromasia 2+, Anisocytosis 2+ 08/15/20 05:15: Random Vancomycin 21.1 H 08/15/20 05:15: Sodium 136, Potassium 5.2 H, Chloride 103, Carbon Dioxide 25.0, Anion Gap 8, BUN 115 H*, Creatinine 3.56 H, Estim Creat Clear Calc 20.25, Est GFR (MDRD) Af Amer 17 L, Est GFR (MDRD) Non-Af 14 L, BUN/Creatinine Ratio 32.3 H , Glucose 129 H, Calcium 8.0 L, Total Bilirubin 0.50, AST 33, ALT 19, Alkaline Phosphatase 181 H, Total Protein 6.6, Albumin 1.8 L, Globulin 4.8 H, Albumin/Globulin Ratio 0.4 L 08/15/20 05:15: Ammonia 72.0 H 08/15/20 05:48: POC Glucose 133 H Current Medications Acetaminophen (Acetaminophen 325 Mg Tablet) 650 mg PO Q6H PRN PRN PRN Reason: Pain Score 1-10/Temp > 100.7 F Al Hydroxide/Mg Hydroxide (Mag Hydrox/Al Hydrox/Simeth 30 Ml Udc) 30 ml PO Q6H PRN PRN PRN Reason: Gastric Burning Albuterol Sulfate (Albuterol 2.5 Mg/3 Ml Vial.Neb.) 2.5 mg INHALATION Q2H PRN PRN PRN Reason: SHORTNESS OF BREATH Albuterol/Ipratropium (Ipratropium/Albuterol Sulfate 3 Ml Ampul.Neb) 3 ml INHALATION Q4H.RT [facility] Last Admin: 08/15/20 06:46 Dose: 3 ml Documented by: Allopurinol (Allopurinol 300 Mg Tablet) 300 mg PO DAILY [facility] Last Admin: 08/14/20 09:30 Dose: 300 mg Documented by: Aspirin (Aspirin 81 Mg Tab.Chew) 81 mg PO DAILY@0800 [facility] Last Admin: 08/14/20 09:30 Dose: 81 mg Documented by: Atorvastatin Calcium (Atorvastatin Calcium 40 Mg Tablet) 40 mg PO QHS [facility] Last Admin: 08/14/20 21:10 Dose: 40 mg Documented by: Bupropion HCl (Bupropion (Xl) 150 Mg Tablet.Xl) 150 mg PO DAILY [facility] Last Admin: 08/14/20 09:30 Dose: 150 mg Documented by: Calamine/Phenol (Menthol/Lanolin/Calamine/Znox 113 Gm Tube) 1 applic TOPICAL BID [facility]; Protocol Last Admin: 08/14/20 21:10 Dose: 1 applicatio Documented by: Docusate Sodium (Docusate Sodium 100 Mg Capsule) 200 mg PO BID [facility] Last Admin: 08/14/20 21:10 Dose: 200 mg Documented by: Furosemide (Furosemide 40 Mg/4 Ml Vial) 40 mg IV BID@1000,1800 [facility] Last Admin: 08/14/20 18:23 Dose: Not Given Documented by: Vancomycin IV Pharmacy to Dose (1 ea/ Sodium Chloride) 500 mls @ 250 mls/hr IV X1 PRN; Protocol PRN Reason: Rx to Dose Aztreonam 2 gm/ Sodium (Chloride) 100 mls @ 150 mls/hr IV Q8 [facility] Stop: 08/16/20 22:01 Last Infusion: 08/15/20 06:29 Dose: Infused Documented by: Sodium Chloride () 250 mls @ 15 mls/hr IV .[id number] PRN PRN Reason: Additional IVPB Infusion Last Infusion: 08/10/20 12:43 Dose: Infused Documented by: Insulin Human Lispro (Insulin Lispro 100 Unit/Ml Insuln.Pen) 0 unit SC ACHS [facility]; Protocol Last Admin: 08/15/20 05:49 Dose: Not Given Documented by: Lactulose (Lactulose 20 Gm/30 Ml Udc) 20 gm PO BID [facility] Last Admin: 08/14/20 21:10 Dose: 20 gm Documented by: Midodrine (Midodrine Hcl 5 Mg Tablet) 10 mg PO TID [facility] Last Admin: 08/15/20 05:45 Dose: 10 mg Documented by: Nystatin (Nystatin Powder 15gm Bottle) 1 applic TOPICAL BID [facility]; Protocol Last Admin: 08/14/20 21:11 Dose: 1 applicatio Documented by: Ondansetron HCl (Ondansetron 4 Mg/2 Ml Vial) 4 mg IV Q8H PRN PRN PRN Reason: NAUSEA Last Admin: 08/11/20 13:13 Dose: 4 mg Documented by: Pantoprazole Sodium (Pantoprazole Sodium 40 Mg Tablet) 40 mg PO BID [facility] Last Admin: 08/14/20 21:14 Dose: 40 mg Documented by: Polyethylene Glycol (Polyethylene Glycol 3350 17 Gm Packet) 17 gm PO DAILY [facility] Last Admin: 08/14/20 09:30 Dose: 17 gm Documented by: Rifaximin (Rifaximin 550 Mg Tablet) 550 mg PO BID [facility] Last Admin: 08/14/20 21:10 Dose: 550 mg Documented by: Sodium Chloride (0.9% Saline Lock 10 Ml Syringe) 10 - 40 ml IV UD PRN PRN Reason: SALINE FLUSH Last Admin: 08/14/20 14:51 Dose: 10 ml Documented by: STROKE Vital Signs/Narrative: Vital Signs Pulse 08/15/20 06:31 78 Medical Necessity - Tobacco Use Smoking Status: Former smoker Assessment/Plan All Active Problems (Last Reviewed 08/09/20 @ 19:[address] Aston Casiano, DO) MAX (acute kidney injury) (Acute) Healthcare-associated pneumonia (Acute) Hyperkalemia (Acute) Acute respiratory failure with hypoxia (Acute) Infestation by bed bug (Resolved) 1. Acute hypoxic respiratory failure secondary to pneumonia/heart failure, on 3 L of oxygen Continue with breathing treatments, encourage use of incentive spirometer. Wean off oxygen for SPO2 more than 94% Pulmonology consulted 2. Hypotension, likely multifactorial, off home BP meds Started on Midodrine po Continue to monitor 3. Probable pneumonia, possibly gram-negative, no leucocytosis Continue on IV aztreonam and Vancomycin Vancomycin trough was elevated at 21.1; vancomycin held Will discontinue antibiotics today (day 6) 4. Acute heart failure with reduced EF, EF of 25 to 30% Continue on Lasix IV BID Continue to monitor I & Os 5. MAX on CKD stage IV, worsening, BUN/Cr 115/3.56 Continue on Lasix 6. Hyperkalemia, resolved, potassium 5.2 Repeat blood work 7. Acute metabolic encephalopathy, multifactorial, related to above Will continue to monitor 8. Liver cirrhosis with ascites likely cardiac related/acute hepatic encephalopathy Ammonia 72, continue on lactulose, miralax, rifaximin Repeat ammonia level in am 9. CAD status post stents, continue on aspirin, statin Off carvedilol 10. Type II DM, BS are fairly controlled on ISS with blood glucose checks 10. Klebsiella UTI, on IV antibiotics 11. Acute GI bleed, no acute drops in hemoglobin On IV PPI BID, off Coumadin on account of GI bleed Will also hold aspirin 12. Anemia, acute on chronic blood loss anemia, Stool for occult blood is positive Hb has remained stable at 8.1 Transfuse blood below 7.0 13.Supratherapeutic INR, resolved, INR today is 2.4 14. DVT PPx- INR is therapeutic Patient overall is very ill; she is a candidate for palliative care vs Hospice. Inpatient E&M: [id number] Subs Hosp L2
[2020-08-15] MEDS: Nystatin Powder 15gm Bottle 1 APPLIC TOPICAL ×2 (09:19→22:00)
[2020-08-15] MEDS: Furosemide 40 MG/4 ML Vial IV ×2 (09:20→16:59)
[2020-08-15] MEDS: Menthol/Lanolin/Calamine/Znox 113 GM Tube 1 APPLIC TOPICAL ×2 (09:20→22:01)
[2020-08-15] MEDS: 0.9% Saline Lock 10 ML Syringe IV ×4 (09:20→16:58)
[2020-08-15 10:05] LABS: Base Excess -3 mmol/L (-2 to +2); Bicarbonate 23.5 mmol/L (22-26); Blood Gas Specimen Type ART; FI02 32; O2 Delivery Device Cannula; PO2 66 mmHG (75-100); SITE R Brach; SO2 90 % (95-99); Total Carbon Dioxide 25 mmol/L; pCO2 48.1 mmHg (35-45)
[2020-08-15] MEDS: Docusate Sodium 100 MG Capsule 200 MG PO ×2 (10:06→20:50)
[2020-08-15] MEDS: Aspirin 81 MG TAB.CHEW PO (10:06)
[2020-08-15] MEDS: rifAXIMin 550 MG Tablet PO ×2 (10:06→22:02)
[2020-08-15] MEDS: Allopurinol 300 MG Tablet PO (10:06)
[2020-08-15] MEDS: buPROPion (XL) 150 MG TABLET.XL PO (10:06)
[2020-08-15] MEDS: Lactulose 20 GM/30 ML UDC PO ×2 (10:07→20:50)
--- NOTE | 2020-08-15 10:56 | PCM.CONS.PUL ---
Problem List (1) Anemia Status: Chronic (2) Thrombocytopenia Status: Chronic (3) MAX (acute kidney injury) Status: Acute (4) CKD (chronic kidney disease) stage 3, GFR 30-59 ml/min Status: Chronic (5) Acute respiratory failure with hypoxia Status: Acute (6) Asthma Status: Chronic (7) CVA (cerebral vascular accident) Status: Chronic Comment: 2001 (8) COPD (chronic obstructive pulmonary disease) Status: Chronic (9) History of PTCA Status: Chronic Comment: Mid LAD bare metal stent 07/20/2002. RCA Bare metal stent 07/02/2006 (10) History of permanent cardiac pacemaker placement Status: Chronic Comment: 09/08/2013,[facility] (11) Above knee amputation of right lower extremity Status: Chronic (12) Atrial fibrillation Status: Chronic (13) Ischemic cardiomyopathy Status: Chronic (14) Diabetes mellitus Status: Chronic Comment: type II (15) Morbid obesity Status: Chronic (16) History of DVT of lower extremity Status: Chronic (17) Tobacco abuse Status: Chronic Reason for Consult Date of Consultation: 08/15/20 Reason for Consultation: Pleural effusion History of Present Illness: The patient is a 60 year old F, with past medical history listed below, who presented to [facility] on 08/09/2020 secondary to not feeling well and change in mental status. Patient reportedly lives at a SNF and has a history of CVA with unknown baseline symptoms. Patient reportedly was noted to have hypoxia and had complained of some dyspnea. Patient denied any falls. Patient reportedly is oriented to baseline. In the ER, patient was noted to be lethargic. Patient was placed on antibiotics for presumed community-acquired pneumonia. An ABG was within normal limits. Covid test came back negative and patient was intermittently hypotensive. Patient was placed on BiPAP with good response. Laboratory data showed an elevated potassium at 5.3, BUN of 98 and creatinine of 2.99. Liver function studies and lactate were within normal limits. Patient did not have a leukocytosis, but did have a slight anemia with a hemoglobin of 9 and platelet count of 72. Patient's INR was elevated at 2.4. Patient was admitted to the floor and had been doing okay. Patient did have some renal dysfunction and was eventually seen by Dr. Dorsey. Patient has required minimal nasal cannula oxygen, but has not been able to be diuresed secondary to marginal blood pressures. A chest x-ray and renal ultrasound were suggestive of a right pleural effusion. Patient has not been on noninvasive therapy while hospitalized except for a brief period on the day of hospitalization. On the morning of consultation, patient had decreased mental status. Ammonia was elevated at that time. Speech was seeing the patient at the time of my arrival and stated that she could take her medications with applesauce while observed. Patient is unable to provide much information in addition to the medical record. Patient is not reporting any pain at this time. Patient does not report dyspnea, but is requiring nasal cannula oxygen to maintain saturations. Patient is not reporting a productive cough, but only states that she feels tired. Unable to obtain a full review of systems secondary to mental status. Past Medical History Past Medical History (Chronic Problems): Chronic Problems (Last Reviewed 08/09/20 @ 19:[address] Aston Casiano DO) Heart failure (Chronic) Anemia (Chronic) Thrombocytopenia (Chronic) CKD (chronic kidney disease) stage 3, GFR 30-59 ml/min (Chronic) Asthma (Chronic) CVA (cerebral vascular accident) (Chronic) 2001 COPD (chronic obstructive pulmonary disease) (Chronic) History of PTCA (Chronic) Mid LAD bare metal stent 07/20/2002. RCA Bare metal stent 07/02/2006 History of permanent cardiac pacemaker placement (Chronic) 09/08/2013,[facility] Above knee amputation of right lower extremity (Chronic) History of tonsillectomy (Chronic) H/O: hysterectomy (Chronic) History of cholecystectomy (Chronic) H/O adenoidectomy (Chronic) HLD (hyperlipidemia) (Chronic) Coronary artery disease (Chronic) Hypothyroidism (Chronic) Atrial fibrillation (Chronic) Ischemic cardiomyopathy (Chronic) Diabetes mellitus (Chronic) type II Morbid obesity (Chronic) History of DVT of lower extremity (Chronic) Tobacco abuse (Chronic) Medical History: Medical History (Last Reviewed 08/09/20 @ 19:[address] Aston Casiano DO) Asthma (Chronic) J45.909 CVA (cerebral vascular accident) (Chronic) I63.9 2002 COPD (chronic obstructive pulmonary disease) (Chronic) J44.9 Above knee amputation of right lower extremity (Chronic) Z89.611 HLD (hyperlipidemia) (Chronic) E78.5 Coronary artery disease (Chronic) I25.10 Hypothyroidism (Chronic) E03.9 Atrial fibrillation (Chronic) I48.91 Ischemic cardiomyopathy (Chronic) I25.5 Diabetes mellitus (Chronic) E11.9 type II Morbid obesity (Chronic) E66.01 Allergies codeine Allergy (Verified 07/07/20 14:29) Rash latex Allergy (Verified 07/07/20 14:29) Itching Penicillins Allergy (Verified 07/07/20 14:29) Swelling dexamethasone [From Maxidex] Adverse Reaction (Verified 07/07/20 14:29) Unknown iodine Adverse Reaction (Verified 07/07/20 14:29) Itching morphine Adverse Reaction (Verified 07/07/20 14:29) Other contrast dye Allergy (Uncoded 07/07/20 14:29) GI upset GI upset Home Medications: Ambulatory Orders Medication Instructions Recorded Nitroglycerin [Nitrostat] 0.4 mg SL PRN PRN 07/19/13 Atorvastatin Calcium [Lipitor] 40 mg PO QHS 06/02/15 Gabapentin [Neurontin] 600 mg PO TID 06/02/15 Carvedilol [Coreg (Beta Yamilka)] 25 mg PO BID 07/07/17 Aspirin [Aspirin, Baby] 81 mg PO DAILY@0800 08/15/17 Furosemide 80 mg PO BREAKFAST 03/06/19 Ondansetron [Zofran Odt] 4 mg PO Q8H PRN PRN #10 tab 03/22/19 Allopurinol 300 mg PO DAILY 11/04/19 Insulin Glargine,Hum.rec.anlog 45 unit SQ QHS 11/04/19 [Lantus] Bupropion HCl [Bupropion Xl] 150 mg PO DAILY 07/07/20 Bupropion HCl [Bupropion Xl] 300 mg PO DAILY 07/07/20 Furosemide [Lasix] 40 mg PO DAILY@1200 07/07/20 Hydralazine HCl 25 mg PO TID 07/07/20 Acetaminophen [Tylenol Tablet] 650 mg PO Q6H PRN PRN tab 07/09/20 Mag Hydrox/Al Hydrox/Simeth 30 ml PO Q6H PRN PRN udc 07/09/20 [Mylanta II] Docusate Sodium [Colace] 200 mg PO BID 08/09/20 Insulin Lispro [Humalog KwikPen] See Protocol SQ ACHS 08/09/20 Isosorbide Mononitrate [Imdur] 30 mg PO DAILY 08/09/20 Multivitamin 1 tab PO DAILY 08/09/20 Nystatin Powder [Mycostatin Powder] 1 applic TOPICAL BID 08/09/20 Nystatin/Triamcin Cream [Mycolog] 1 applic TOPICAL BID 08/09/20 Omeprazole 20 mg PO DAILY 08/09/20 Polyethylene Glycol 3350 [Miralax] 17 gm PO DAILY 08/09/20 Potassium Chloride [K-Dur] 20 meq PO BIDCM 08/09/20 Warfarin Sodium 4 mg PO DAILY 08/09/20 Surgical History: Surgical History (Last Reviewed 08/09/20 @ 19:[address] Aston Casiano DO) History of PTCA (Chronic) Z98.61 Mid LAD bare metal stent 07/20/2002. RCA Bare metal stent 07/02/2006 History of permanent cardiac pacemaker placement (Chronic) Z95.0 09/08/2013,[facility] History of tonsillectomy (Chronic) Z90.89 H/O: hysterectomy (Chronic) Z90.710 History of cholecystectomy (Chronic) Z90.49 H/O adenoidectomy (Chronic) Z90.89 Surgical History: adenoidectomy, cholecystectomy, hysterectomy, tonsillectomy, - - Right [id number] amputation, panniculectomy, pacemaker placement, left leg vein grafting/bypass. 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 Aston Casiano DO) MAX (acute kidney injury) (Acute) Healthcare-associated pneumonia (Acute) Hyperkalemia (Acute) Acute respiratory failure with hypoxia (Acute) Objective: All imaging was personally reviewed. Patient does have a right pleural effusion appreciated on chest x-ray completed yesterday. Patient also has an effusion noted on liver ultrasound. Patient did recently have an echocardiogram showing an EF of 25 to 30% with severe global hypokinesis of left ventricle, moderately dilated right ventricle with systolic dysfunction. Rheumatic appearing mitral valve with probable stenosis and an estimated pulmonary artery pressure of 55 to 60 mmHg. At that time, inferior vena cava was dilated. Patient has never had a pulmonary function test. - Physical Exam Vitals/I&O's: Vital Signs Temp Pulse Resp BP Pulse Ox 36.7 C 79 15 119/61 94 08/15/20 09:17 08/15/20 10:45 08/15/20 09:17 08/15/20 09:17 08/15/20 09:18 Oxygen Flow Rate (L/min) 3 Oxygen Delivery Method Nasal Cannula Weight: 175.9 kg Body Mass Index (BMI) 51.2 Finger Stick Blood Glucose 77 Intake and Output for Last 24 Hours 08/13/20 08/14/20 08/15/20 23:59 23:59 23:59 Intake Total 803.75 / 893.75 1072.5 / 1122.5 150 / 150 Output Total 800 / 950 600 / 750 350 / 350 Balance 3.75 / -56.25 472.5 / 372.5 -200 / -200 General: - - Exam limited by body habitus. RASS -2. Requires frequent reminding to stay awake. HEENT: Atraumatic, PERRLA, EOMI, Normocephalic, - - Scleral injection without icterus Oral: Moist Mucosa, No Gingival or Mucosal Lesions/ Ulcerations, - - Crowded posterior pharynx Neck: Supple, No Nodes, Trachea Midline, - - Unable to assess JVD secondary to body habitus Lungs: No rhonchi, No wheeze, No rales, Diminished, - - Dullness to percussion at the right base Cardiovascular: Normal S1, No murmurs, Irregular Rate, No rub noted, No Gallop, - - Accentuated second heart sound Abdomen: Bowel Sounds Present, Soft, Non Tender, Non-Distended, Obese Extremities: No cyanosis, Edema, - - AKA noted Skin: - - Stasis changes in lower extremity Musculoskeletal: No Tenderness to Palpation of Joints or Extremities Lymphatic: No Cervical, Supraclavicular, or Inguinal Adenopathy Neurological: Neuro grossly intact - Nonfocal exam. Readily moves bilateral upper extremities. Sensation intact. Psych/Mental Status: Flat Affect Microbiology Past 72 Hours 08/09/20 12:30 Blood Culture (Wb) - Anticubital Right Blood Culture - Final No growth in 5 days. 08/09/20 12:30 Blood Culture (Wb) - Left Forearm Blood Culture - Final No growth in 5 days. Laboratory Results 08/14/20 11:35: POC Glucose 158 H 08/14/20 16:31: POC Glucose 116 H 08/14/20 21:06: POC Glucose 137 H 08/15/20 05:15: PT 25.3 H, INR 2.4 08/15/20 05:15: WBC 5.1, RBC 2.91 L, Hgb 8.1 L, Hct 27.8 L, MCV 95.5, MCH 27.8, MCHC 29.1 L, RDW Std Deviation 70.9 H, RDW Coeff of Yoandy 20.5 H, Plt Count 101 L, MPV 11.5, Immature Gran % (Auto) 0.400, Neut % (Auto) 72.6 H, Lymph % (Auto) 14.9 L, [place] % (Auto) 7.9, Eos % (Auto) 3.6, Baso % (Auto) 0.6, Absolute Neuts (auto) 3.7, Absolute Lymphs (auto) 0.75 L, Nucleated RBC % 0, Differential Comment SCANNED, Hypochromasia 2+, Anisocytosis 2+ 08/15/20 05:15: Random Vancomycin 21.1 H 08/15/20 05:15: Sodium 136, Potassium 5.2 H, Chloride 103, Carbon Dioxide 25.0, Anion Gap 8, BUN 115 H*, Creatinine 3.56 H, Estim Creat Clear Calc 20.25, Est GFR (MDRD) Af Amer 17 L, Est GFR (MDRD) Non-Af 14 L, BUN/Creatinine Ratio 32.3 H, Glucose 129 H, Calcium 8.0 L, Total Bilirubin 0.50, AST 33, ALT 19, Alkaline Phosphatase 181 H, Total Protein 6.6, Albumin 1.8 L, Globulin 4.8 H, Albumin/Globulin Ratio 0.4 L 08/15/20 05:15: Ammonia 72.0 H 08/15/20 05:48: POC Glucose 133 H 08/15/20 09:58: Specimen Type ART, Sample Site R Brach, pH 7.30 L, Bicarbonate Actual 23.5, Total CO2 25, Base Excess -3 L, O2 Saturation 90 L, O2 % 32, ABG pCO2 48.1 H, ABG pO2 66 L, O2 Delivery Device Cannula Current Medications Acetaminophen (Acetaminophen 325 Mg Tablet) 650 mg PO Q6H PRN PRN PRN Reason: Pain Score 1-10/Temp > 100.7 F Al Hydroxide/Mg Hydroxide (Mag Hydrox/Al Hydrox/Simeth 30 Ml Udc) 30 ml PO Q6H PRN PRN PRN Reason: Gastric Burning Albuterol Sulfate (Albuterol 2.5 Mg/3 Ml Vial.Neb.) 2.5 mg INHALATION Q2H PRN PRN PRN Reason: SHORTNESS OF BREATH Albuterol/Ipratropium (Ipratropium/Albuterol Sulfate 3 Ml Ampul.Neb) 3 ml INHALATION Q4H.RT [facility] Last Admin: 08/15/20 06:46 Dose: 3 ml Documented by: Allopurinol (Allopurinol 300 Mg Tablet) 300 mg PO DAILY [facility] Last Admin: 08/15/20 10:06 Dose: 300 mg Documented by: Aspirin (Aspirin 81 Mg Tab.Chew) 81 mg PO DAILY@0800 [facility] Last Admin: 08/15/20 10:06 Dose: 81 mg Documented by: Atorvastatin Calcium (Atorvastatin Calcium 40 Mg Tablet) 40 mg PO QHS [facility] Last Admin: 08/14/20 21:10 Dose: 40 mg Documented by: Bupropion HCl (Bupropion (Xl) 150 Mg Tablet.Xl) 150 mg PO DAILY [facility] Last Admin: 08/15/20 10:06 Dose: 150 mg Documented by: Calamine/Phenol (Menthol/Lanolin/Calamine/Znox 113 Gm Tube) 1 applic TOPICAL BID [facility]; Protocol Last Admin: 08/15/20 09:20 Dose: 1 applicatio Documented by: Docusate Sodium (Docusate Sodium 100 Mg Capsule) 200 mg PO BID [facility] Last Admin: 08/15/20 10:06 Dose: 200 mg Documented by: Furosemide (Furosemide 40 Mg/4 Ml Vial) 40 mg IV BID@1000,1800 [facility] Last Admin: 08/15/20 09:20 Dose: 40 mg Documented by: Vancomycin IV Pharmacy to Dose (1 ea/ Sodium Chloride) 500 mls @ 250 mls/hr IV X1 PRN; Protocol PRN Reason: Rx to Dose Aztreonam 2 gm/ Sodium (Chloride) 100 mls @ 150 mls/hr IV Q8 [facility] Stop: 08/16/20 22:01 Last Infusion: 08/15/20 06:29 Dose: Infused Documented by: Sodium Chloride () 250 mls @ 15 mls/hr IV .[id number] PRN PRN Reason: Additional IVPB Infusion Last Infusion: 08/10/20 12:43 Dose: Infused Documented by: Pantoprazole Sodium 40 mg/ (Sodium Chloride) 110 mls @ 330 mls/hr IV Q12 [facility] Last Admin: 08/15/20 10:55 Dose: 330 mls/hr Documented by: Insulin Human Lispro (Insulin Lispro 100 Unit/Ml Insuln.Pen) 0 unit SC ACHS [facility]; Protocol Last Admin: 08/15/20 05:49 Dose: Not Given Documented by: Lactulose (Lactulose 20 Gm/30 Ml Udc) 20 gm PO BID [facility] Last Admin: 08/15/20 10:07 Dose: 20 gm Documented by: Midodrine (Midodrine Hcl 5 Mg Tablet) 10 mg PO TID [facility] Last Admin: 08/15/20 05:45 Dose: 10 mg Documented by: Nystatin (Nystatin Powder 15gm Bottle) 1 applic TOPICAL BID [facility]; Protocol Last Admin: 08/15/20 09:19 Dose: 1 applicatio Documented by: Ondansetron HCl (Ondansetron 4 Mg/2 Ml Vial) 4 mg IV Q8H PRN PRN PRN Reason: NAUSEA Last Admin: 08/11/20 13:13 Dose: 4 mg Documented by: Polyethylene Glycol (Polyethylene Glycol 3350 17 Gm Packet) 17 gm PO DAILY [facility] Last Admin: 08/15/20 09:39 Dose: Not Given Documented by: Rifaximin (Rifaximin 550 Mg Tablet) 550 mg PO BID [facility] Last Admin: 08/15/20 10:06 Dose: 550 mg Documented by: Sodium Chloride (0.9% Saline Lock 10 Ml Syringe) 10 - 40 ml IV UD PRN PRN Reason: SALINE FLUSH Last Admin: 08/15/20 10:55 Dose: 10 ml Documented by: Clinical Impression(s) from Imaging Studies Chest X-Ray 08/14/20 10:30 IMPRESSION: Mild congestive heart failure. Electronically Signed: Erickson Steinberg MD at 11:25 EST Tel , Service support , Assessment/Plan All Active Problems (Last Reviewed 08/09/20 @ 19:[address] Aston Casinao, DO) MAX (acute kidney injury) (Acute) Healthcare-associated pneumonia (Acute) Hyperkalemia (Acute) Acute respiratory failure with hypoxia (Acute) Infestation by bed bug (Resolved) RECOMMENDATIONS: 1. Dialysis per nephrology 2. Consider thoracentesis if oxygen demands worsen 3. Initiate AVAPS with sleep and tidal volume goal of 450 if issues overnight 4. Keep saturations between 90 and 94% to avoid CO2 retention 5. Volume removal with hemodialysis 6. Could consider infectious disease for possible antibiotic cessation IMPRESSIONS: 1. Acute hypoxic respiratory insufficiency with possible pneumonia Imaging studies are very difficult to interpret given body habitus. Patient does appear to have a right lower lobe consolidation versus atelectasis with an associated effusion. Patient has been on antibiotics for several days with no reported fevers. Clinical suspicion for an element of transudate physiology secondary to renal failure and congestive heart failure. Patient does have significant pulmonary hypertension at baseline, likely secondary to systolic CHF, but would require a right heart catheterization for quantification clarification. Patient may also have an element of congestive hepatology leading to elevated ammonia. Volume removal would be helpful. If patient starts to decompensate, a thoracentesis could be arranged, but this would require reversal of INR and patient is a high risk for thrombosis complications. ABG is suggestive of poorly compensated metabolic acidosis. Likely not necessary to initiate BiPAP at this time. 2. Probable obstructive sleep apnea that is untreated Patient is at high risk for obstructive sleep apnea. This may exacerbate underlying condition. If patient were to have difficulty with sleeping, initiation of AVAPS with tidal volume goal of 450 would be appropriate. Patient ideally would have a BiPAP titration study as an outpatient. 3. Acute kidney injury on CKD stage IV Patient appears to be severely volume overloaded. There appears to be plans to arrange for a tunneled hemodialysis catheter on Sunday with initiation of hemodialysis. Volume removal would be helpful from a pulmonary perspective. However, given RV dilation, volume status will be very labile from a cardiovascular standpoint as the left ventricle needs volume removal in the right ventricle likely needs an element of congestion to maintain output. Could consider cardiology. 4. Metabolic encephalopathy/liver cirrhosis/CAD/type 2 diabetes mellitus/UTI/paroxysmal A. fib/history of DVT/morbid obesity Complicates care, management, recovery and prognosis. Okay to continue with baseline medications from my perspective. We will continue to follow. Inpatient E&M: 62297 Init Hosp L3
[2020-08-15 11:15] LABS: Bedside Glucose 139 mg/dL (70-110)
[2020-08-15 17:20] LABS: Bedside Glucose 120 mg/dL (70-110)
--- NOTE | 2020-08-15 19:38 | PCM.PN.REN ---
Patient Problems: Active and Suspected Problems (Last Reviewed 08/09/20 @ 19:[address] Aston Casiano, DO) MAX (acute kidney injury) (Acute) Healthcare-associated pneumonia (Acute) Hyperkalemia (Acute) Acute respiratory failure with hypoxia (Acute) Subjective: Following for MAX on CKD. Pt is SOB with exertion. Doing OK at rest. Able to lay flat. No nausea. No vomiting. - Physical Exam Vitals/I&O's: Vital Signs Temp Pulse Resp BP Pulse Ox 98.6 F 80 14 136/69 H 92 08/15/20 16:44 08/15/20 16:44 08/15/20 16:44 08/15/20 16:44 08/15/20 16:44 Oxygen Flow Rate (L/min) 3 Oxygen Delivery Method Nasal Cannula Weight: 175.9 kg Body Mass Index (BMI) 51.2 Finger Stick Blood Glucose 77 Intake and Output for Last 24 Hours 08/13/20 08/14/20 08/15/20 23:59 23:59 23:59 Intake Total 803.75 / 893.75 1072.5 / 1122.5 560 / 560 Output Total 800 / 950 600 / 750 850 / 850 Balance 3.75 / -56.25 472.5 / 372.5 -290 / -290 General: Alert, Oriented x3 HEENT: Atraumatic, EOMI Oral: Moist Mucosa Neck: Supple Lungs: Diminished - at bases Cardiovascular: Normal S1, Normal S2 Abdomen: Bowel Sounds Present, Soft, Non Tender, Obese Extremities: Edema - 4+ BL Microbiology Past 72 Hours 08/09/20 12:30 Blood Culture (Wb) - Anticubital Right Blood Culture - Final No growth in 5 days. 08/09/20 12:30 Blood Culture (Wb) - Left Forearm Blood Culture - Final No growth in 5 days. Laboratory Results 08/14/20 21:06: POC Glucose 137 H 08/15/20 05:15: PT 25.3 H, INR 2.4 08/15/20 05:15: WBC 5.1, RBC 2.91 L, Hgb 8.1 L, Hct 27.8 L, MCV 95.5, MCH 27.8, MCHC 29.1 L, RDW Std Deviation 70.9 H, RDW Coeff of Yoandy 20.5 H, Plt Count 101 L, MPV 11.5, Immature Gran % (Auto) 0.400, Neut % (Auto) 72.6 H, Lymph % (Auto) 14.9 L, [place] % (Auto) 7.9, Eos % (Auto) 3.6, Baso % (Auto) 0.6, Absolute Neuts (auto) 3.7, Absolute Lymphs (auto) 0.75 L, Nucleated RBC % 0, Differential Comment SCANNED, Hypochromasia 2+, Anisocytosis 2+ 08/15/20 05:15: Random Vancomycin 21.1 H 08/15/20 05:15: Sodium 136, Potassium 5.2 H, Chloride 103, Carbon Dioxide 25.0, Anion Gap 8, BUN 115 H*, Creatinine 3.56 H, Estim Creat Clear Calc 20.25, Est GFR (MDRD) Af Amer 17 L, Est GFR (MDRD) Non-Af 14 L, BUN/Creatinine Ratio 32.3 H, Glucose 129 H, Calcium 8.0 L, Total Bilirubin 0.50, AST 33, ALT 19, Alkaline Phosphatase 181 H, Total Protein 6.6, Albumin 1.8 L, Globulin 4.8 H, Albumin/Globulin Ratio 0.4 L 08/15/20 05:15: Ammonia 72.0 H 08/15/20 05:48: POC Glucose 133 H 08/15/20 09:58: Specimen Type ART, Sample Site R Brach, pH 7.30 L, Bicarbonate Actual 23.5, Total CO2 25, Base Excess -3 L, O2 Saturation 90 L, O2 % 32, ABG pCO2 48.1 H, ABG pO2 66 L, O2 Delivery Device Cannula 08/15/20 10:58: POC Glucose 139 H 08/15/20 16:41: POC Glucose 120 H Current Medications Acetaminophen (Acetaminophen 325 Mg Tablet) 650 mg PO Q6H PRN PRN PRN Reason: Pain Score 1-10/Temp > 100.7 F Al Hydroxide/Mg Hydroxide (Mag Hydrox/Al Hydrox/Simeth 30 Ml Udc) 30 ml PO Q6H PRN PRN PRN Reason: Gastric Burning Albuterol Sulfate (Albuterol 2.5 Mg/3 Ml Vial.Neb.) 2.5 mg INHALATION Q2H PRN PRN PRN Reason: SHORTNESS OF BREATH Albuterol/Ipratropium (Ipratropium/Albuterol Sulfate 3 Ml Ampul.Neb) 3 ml INHALATION Q4H.RT [facility] Last Admin: 08/15/20 13:56 Dose: 3 ml Documented by: Allopurinol (Allopurinol 300 Mg Tablet) 300 mg PO DAILY [facility] Last Admin: 08/15/20 10:06 Dose: 300 mg Documented by: Aspirin (Aspirin 81 Mg Tab.Chew) 81 mg PO DAILY@0800 [facility] Last Admin: 08/15/20 10:06 Dose: 81 mg Documented by: Atorvastatin Calcium (Atorvastatin Calcium 40 Mg Tablet) 40 mg PO QHS [facility] Last Admin: 08/14/20 21:10 Dose: 40 mg Documented by: Bupropion HCl (Bupropion (Xl) 150 Mg Tablet.Xl) 150 mg PO DAILY [facility] Last Admin: 08/15/20 10:06 Dose: 150 mg Documented by: Calamine/Phenol (Menthol/Lanolin/Calamine/Znox 113 Gm Tube) 1 applic TOPICAL BID [facility]; Protocol Last Admin: 08/15/20 09:20 Dose: 1 applicatio Documented by: Docusate Sodium (Docusate Sodium 100 Mg Capsule) 200 mg PO BID [facility] Last Admin: 08/15/20 10:06 Dose: 200 mg Documented by: Furosemide (Furosemide 40 Mg/4 Ml Vial) 40 mg IV BID@1000,1800 [facility] Last Admin: 08/15/20 16:59 Dose: 40 mg Documented by: Aztreonam 2 gm/ Sodium (Chloride) 100 mls @ 150 mls/hr IV Q8 [facility] Stop: 08/15/20 22:01 Last Infusion: 08/15/20 14:43 Dose: Infused Documented by: Sodium Chloride () 250 mls @ 15 mls/hr IV .[id number] PRN PRN Reason: Additional IVPB Infusion Last Infusion: 08/10/20 12:43 Dose: Infused Documented by: Pantoprazole Sodium 40 mg/ (Sodium Chloride) 110 mls @ 330 mls/hr IV Q12 [facility] Last Infusion: 08/15/20 11:25 Dose: Infused Documented by: Insulin Human Lispro (Insulin Lispro 100 Unit/Ml Insuln.Pen) 0 unit SC ACHS [facility]; Protocol Last Admin: 08/15/20 16:43 Dose: Not Given Documented by: Lactulose (Lactulose 20 Gm/30 Ml Udc) 20 gm PO BID [facility] Last Admin: 08/15/20 10:07 Dose: 20 gm Documented by: Midodrine (Midodrine Hcl 5 Mg Tablet) 10 mg PO TID [facility] Last Admin: 08/15/20 14:18 Dose: 10 mg Documented by: Nystatin (Nystatin Powder 15gm Bottle) 1 applic TOPICAL BID [facility]; Protocol Last Admin: 08/15/20 09:19 Dose: 1 applicatio Documented by: Ondansetron HCl (Ondansetron 4 Mg/2 Ml Vial) 4 mg IV Q8H PRN PRN PRN Reason: NAUSEA Last Admin: 08/11/20 13:13 Dose: 4 mg Documented by: Polyethylene Glycol (Polyethylene Glycol 3350 17 Gm Packet) 17 gm PO DAILY [facility] Last Admin: 08/15/20 09:39 Dose: Not Given Documented by: Rifaximin (Rifaximin 550 Mg Tablet) 550 mg PO BID [facility] Last Admin: 08/15/20 10:06 Dose: 550 mg Documented by: Sodium Chloride (0.9% Saline Lock 10 Ml Syringe) 10 - 40 ml IV UD PRN PRN Reason: SALINE FLUSH Last Admin: 08/15/20 16:58 Dose: 10 ml Documented by: Medical Necessity - Tobacco Use Smoking Status: Former smoker Assessment/Plan All Active Problems (Last Reviewed 08/09/20 @ 19:[address] Aston Casiano, DO) MAX (acute kidney injury) (Acute) Healthcare-associated pneumonia (Acute) Hyperkalemia (Acute) Acute respiratory failure with hypoxia (Acute) Infestation by bed bug (Resolved) 1. Acute kidney injury on chronic kidney disease stage 4. Prior baseline earlier in 2019 was 1.8 mg/dL. Her SCr was around 2.5 mg/dL during the last admission in 07/2020. This is likely her new baseline SCr. Suspect underlying CKD is from diabetic nephropathy. MAX is likely prerenal from cardiorenal syndrome. FEUrea was 14% on 08/12/20. Another possibility is HRS as urine output is declining (this is less likely since UOP has picked up today). Doubt other causes of MAX such as acute GN (UA did not show RBC) or AIN. Renal US did not show obstruction. Renal function is slowly declining. Restarted Lasix on 08/03/20 since she is volume overloaded with pleural effusion. If renal function continues to worsens, she will need dialysis in the next 24-48 hrs. I spoke to the pt regarding possible need for dialysis over the past few days. Since she has multiple co-morbidities, dialysis may not significantly prolong her life and may decrease quality of life for the remaining life expectancy. At this point, she is resolute about wanting all therapy to sustain life which includes dialysis. No urgent need for HD today, but will likely need by tomorrow. She may not be able to get tunneled cath right away since INR is still >2. 2. Anemia. Hgb is 8.1. Follow Hgb. Can start RUPERTO once she is on HD. 3. Hypercoagulation. INR is 2.4 today. This may limit her from getting tunneled catheter. If INR >2 tomorrow, will ask for temporary dialysis cath first. 4. Hyponatremia. Was mild. Serum Na was 135 yesterday, 136 today. No symptoms from hyponatremia. Will monitor for now. 4. HAP. Antibiotic as per hospital medicine service. Discussed with Dr. Blackwood
[2020-08-15] MEDS: Atorvastatin Calcium 40 MG Tablet PO (20:51)
[2020-08-15 22:25] LABS: Bedside Glucose 112 mg/dL (70-110)
[2020-08-16] VITALS (12 sets, daily range): BP systolic 107–127; BP diastolic 47–75; PULSE 74–82; RESP 16–20; TEMP 36.8–37.4; O2SAT 91–96
[2020-08-16] MEDS: Midodrine HCl 5 MG Tablet 10 MG PO ×3 (05:17→21:19)
[2020-08-16 06:08] LABS: Absolute Neutrophil Count 3.6 X10^3/uL (2.0-7.7); Basophil# 0.03 X10^3/uL; Basophil% 0.6 % (0-1); Eosinophil# 0.18 X10^3/uL; Eosinophils% 3.4 % (0-5); Hematocrit 28.5 % (37-47); Hemoglobin 8.4 g/dL (12.0-15.0); Lymphocyte % 17.2 % (19-41); Mean Corp Hgb Conc 29.5 g/dL (32-36); Mean Corpuscular Hgb 28.5 pg (27.0-32.0); Mean Corpuscular Volume 96.6 fL (81-99); Mean Platelet Vol. 11.1 fl (6.2-12.0); Monocyte# 0.44 X10^3/uL; Monocyte% 8.4 % (0-10); NRBC Flagged by Analyzer 0 % (0-5); Neutrophil # 3.64 X10^3/uL (2.7-7.7); Neutrophil % 69.8 % (47-70); POSITIVE MORPHOLOGY YES; Platelet Count 118 K/mm3 (150-450); RBC Distribution Width CV 20.6 % (11.6-14.6); RBC Distribution Width SD 71.2 fl (35.1-43.9); Red Blood Count 2.95 M/mm3 (4.2-5.4); White Blood Count 5.2 K/mm3 (4.4-11.0)
[2020-08-16 06:34] LABS: Differential Indicated SCAN CRITERIA MET
[2020-08-16 06:35] LABS: Differential Comment SCANNED; Hypochromasia RARE; Microcytosis RARE; Ovalocyte RARE
[2020-08-16 06:51] LABS: ALB/GLOB Ratio 0.3 RATIO (0.9-2.4); AST(SGOT) 28 U/L (15-37); Alanine Aminotransfer ALT/SGPT 19 U/L (13-56); Albumin, Serum 1.7 g/dL (3.2-5.0); Alkaline Phosphatase 174 U/L (45-117); Anion Gap 8 (5-15); BUN 118 mg/dL (7-18); BUN/Creat Ratio 34.4 RATIO (10-20); Calcium,Total 8.1 mg/dL (8.5-10.1); Chloride 104 mmol/L (98-107); Creatinine, Serum 3.43 mg/dL (0.55-1.02); EST Glomerular Filtration Rate 15 mL/min (>60); Est Glom Filt Rate - Afr Amer 18 mL/min (>60); Estimated Creatinine Clearance 21.02 ml/min; Globulin 4.9 g/dL (2.2-4.2); Glucose 106 mg/dL (74-106); Potassium 5.1 mmol/L (3.5-5.1); Protein, Total 6.6 g/dL (6.4-8.2); Sodium Level 136 mmol/L (136-145)
[2020-08-16 06:56] LABS: Bedside Glucose 108 mg/dL (70-110)
[2020-08-16] MEDS: Ipratropium/Albuterol Sulfate 3 ML AMPUL.NEB INHALATION ×3 (07:06→23:20)
[2020-08-16] MEDS: Menthol/Lanolin/Calamine/Znox 113 GM Tube 1 APPLIC TOPICAL ×2 (08:56→21:16)
[2020-08-16] MEDS: Allopurinol 300 MG Tablet PO (08:57)
[2020-08-16] MEDS: rifAXIMin 550 MG Tablet PO ×2 (08:57→21:19)
[2020-08-16] MEDS: buPROPion (XL) 150 MG TABLET.XL PO (08:57)
[2020-08-16] MEDS: Docusate Sodium 100 MG Capsule 200 MG PO ×2 (08:58→21:19)
[2020-08-16] MEDS: Furosemide 40 MG/4 ML Vial IV ×2 (08:58→17:44)
[2020-08-16] MEDS: Nystatin Powder 15gm Bottle 1 APPLIC TOPICAL ×2 (09:01→21:16)
[2020-08-16] MEDS: Lactulose 20 GM/30 ML UDC 30 GM PO ×2 (09:59→21:18)
--- NOTE | 2020-08-16 10:02 | PCM.PN.REN ---
Patient Problems: Active and Suspected Problems (Last Reviewed 08/09/20 @ 19:[address] Aston Casiano, DO) MAX (acute kidney injury) (Acute) Healthcare-associated pneumonia (Acute) Hyperkalemia (Acute) Acute respiratory failure with hypoxia (Acute) Subjective: Patient is obtunded today cannot do ROS - Physical Exam Vitals/I&O's: Vital Signs Temp Pulse Resp BP Pulse Ox 99.4 F H 79 18 108/57 L 91 08/16/20 08:38 08/16/20 08:43 08/16/20 08:38 08/16/20 08:38 08/16/20 08:38 Oxygen Flow Rate (L/min) 4 Oxygen Delivery Method Nasal Cannula Weight: 175.9 kg Body Mass Index (BMI) 51.2 Finger Stick Blood Glucose 77 Intake and Output for Last 24 Hours 08/14/20 08/15/20 08/16/20 23:59 23:59 23:59 Intake Total 1072.5 / 1122.5 770 / 820 160 / 160 Output Total 600 / 750 850 / 1050 400 / 400 Balance 472.5 / 372.5 -80 / -230 -240 / -240 General: Confused HEENT: Atraumatic Oral: Moist Mucosa Neck: Supple, No JVD Lungs: No rhonchi, No wheeze, - - decreased BS over both lungs bases Cardiovascular: Regular rate, Regular Rhythm, Normal S1 Abdomen: Bowel Sounds Present, Soft, Non Tender, Non-Distended Extremities: No clubbing, Edema - +3 edema of LE Lymphatic: No Cervical, Supraclavicular, or Inguinal Adenopathy Neurological: Cranial nerves II-XII grossly intact, - - confused Microbiology Past 72 Hours 08/09/20 12:30 Blood Culture (Wb) - Anticubital Right Blood Culture - Final No growth in 5 days. 08/09/20 12:30 Blood Culture (Wb) - Left Forearm Blood Culture - Final No growth in 5 days. Laboratory Results 08/15/20 09:58: Specimen Type ART, Sample Site R Brach, pH 7.30 L, Bicarbonate Actual 23.5, Total CO2 25, Base Excess -3 L, O2 Saturation 90 L, O2 % 32, ABG pCO2 48.1 H, ABG pO2 66 L, O2 Delivery Device Cannula 08/15/20 10:58: POC Glucose 139 H 08/15/20 16:41: POC Glucose 120 H 08/15/20 22:06: POC Glucose 112 H 08/16/20 05:54: WBC 5.2, RBC 2.95 L, Hgb 8.4 L, Hct 28.5 L, MCV 96.6, MCH 28.5, MCHC 29.5 L, RDW Std Deviation 71.2 H, RDW Coeff of Yoandy 20.6 H, Plt Count 118 L, MPV 11.1, Immature Gran % (Auto) 0.600, Neut % (Auto) 69.8, Lymph % (Auto) 17.2 L, [place] % (Auto) 8.4, Eos % (Auto) 3.4, Baso % (Auto) 0.6, Absolute Neuts (auto) 3.6, Absolute Lymphs (auto) 0.90, Nucleated RBC % 0, Differential Comment SCANNED, Hypochromasia RARE, Microcytosis RARE, Ovalocytes RARE 08/16/20 05:54: Sodium 136, Potassium 5.1, Chloride 104, Carbon Dioxide 24.0, Anion Gap 8, BUN 118 H*, Creatinine 3.43 H, Estim Creat Clear Calc 21.02, Est GFR (MDRD) Af Amer 18 L, Est GFR (MDRD) Non-Af 15 L, BUN/Creatinine Ratio 34.4 H, Glucose 106, Calcium 8.1 L, Total Bilirubin 0.60, AST 28, ALT 19, Alkaline Phosphatase 174 H, Total Protein 6.6, Albumin 1.7 L, Globulin 4.9 H, Albumin/Globulin Ratio 0.3 L 08/16/20 05:54: Ammonia 87.0 H 08/16/20 06:00: Random Vancomycin 19.0 H 08/16/20 06:50: POC Glucose 108 Current Medications Acetaminophen (Acetaminophen 325 Mg Tablet) 650 mg PO Q6H PRN PRN PRN Reason: Pain Score 1-10/Temp > 100.7 F Al Hydroxide/Mg Hydroxide (Mag Hydrox/Al Hydrox/Simeth 30 Ml Udc) 30 ml PO Q6H PRN PRN PRN Reason: Gastric Burning Albuterol Sulfate (Albuterol 2.5 Mg/3 Ml Vial.Neb.) 2.5 mg INHALATION Q2H PRN PRN PRN Reason: SHORTNESS OF BREATH Albuterol/Ipratropium (Ipratropium/Albuterol Sulfate 3 Ml Ampul.Neb) 3 ml INHALATION Q4H.RT [facility] Last Admin: 08/16/20 07:06 Dose: 3 ml Documented by: Allopurinol (Allopurinol 300 Mg Tablet) 300 mg PO DAILY [facility] Last Admin: 08/16/20 08:57 Dose: 300 mg Documented by: Aspirin (Aspirin 81 Mg Tab.Chew) 81 mg PO DAILY@0800 [facility] Last Admin: 08/15/20 10:06 Dose: 81 mg Documented by: Atorvastatin Calcium (Atorvastatin Calcium 40 Mg Tablet) 40 mg PO QHS [facility] Last Admin: 08/15/20 20:51 Dose: 40 mg Documented by: Bupropion HCl (Bupropion (Xl) 150 Mg Tablet.Xl) 150 mg PO DAILY [facility] Last Admin: 08/16/20 08:57 Dose: 150 mg Documented by: Calamine/Phenol (Menthol/Lanolin/Calamine/Znox 113 Gm Tube) 1 applic TOPICAL BID [facility]; Protocol Last Admin: 08/16/20 08:56 Dose: 1 applicatio Documented by: Docusate Sodium (Docusate Sodium 100 Mg Capsule) 200 mg PO BID [facility] Last Admin: 08/16/20 08:58 Dose: 200 mg Documented by: Furosemide (Furosemide 40 Mg/4 Ml Vial) 40 mg IV BID@1000,1800 [facility] Last Admin: 08/16/20 08:58 Dose: 40 mg Documented by: Sodium Chloride () 250 mls @ 15 mls/hr IV .[id number] PRN PRN Reason: Additional IVPB Infusion Last Infusion: 08/10/20 12:43 Dose: Infused Documented by: Pantoprazole Sodium 40 mg/ (Sodium Chloride) 110 mls @ 330 mls/hr IV Q12 [facility] Last Infusion: 08/16/20 09:34 Dose: Infused Documented by: Insulin Human Lispro (Insulin Lispro 100 Unit/Ml Insuln.Pen) 0 unit SC ACHS [facility]; Protocol Last Admin: 08/16/20 07:58 Dose: Not Given Documented by: Lactulose (Lactulose 20 Gm/30 Ml Udc) 30 gm PO BID [facility] Last Admin: 08/16/20 09:59 Dose: 30 gm Documented by: Midodrine (Midodrine Hcl 5 Mg Tablet) 10 mg PO TID [facility] Last Admin: 08/16/20 05:17 Dose: 10 mg Documented by: Nystatin (Nystatin Powder 15gm Bottle) 1 applic TOPICAL BID [facility]; Protocol Last Admin: 08/16/20 09:01 Dose: 1 applicatio Documented by: Ondansetron HCl (Ondansetron 4 Mg/2 Ml Vial) 4 mg IV Q8H PRN PRN PRN Reason: NAUSEA Last Admin: 08/11/20 13:13 Dose: 4 mg Documented by: Polyethylene Glycol (Polyethylene Glycol 3350 17 Gm Packet) 17 gm PO DAILY [facility] Last Admin: 08/16/20 10:01 Dose: Not Given Documented by: Rifaximin (Rifaximin 550 Mg Tablet) 550 mg PO BID [facility] Last Admin: 08/16/20 08:57 Dose: 550 mg Documented by: Sodium Chloride (0.9% Saline Lock 10 Ml Syringe) 10 - 40 ml IV UD PRN PRN Reason: SALINE FLUSH Last Admin: 08/15/20 16:58 Dose: 10 ml Documented by: Medical Necessity - Tobacco Use Smoking Status: Former smoker Assessment/Plan All Active Problems (Last Reviewed 08/09/20 @ 19:[address] Aston Casiano DO) MAX (acute kidney injury) (Acute) Healthcare-associated pneumonia (Acute) Hyperkalemia (Acute) Acute respiratory failure with hypoxia (Acute) Infestation by bed bug (Resolved) 1. Acute kidney injury on chronic kidney disease stage 4.Baseline SCr was around 2.5 mg/dL MAX is likely prerenal from cardiorenal syndrome. FEUrea was 14% on 08/12/20. UOP remains sub optimal despite lasix. she is fluid overloaded with BUN > 110 [employer] is indicated and this was discussed with the patient by Dr Dorsey when she was awake and oriented. Patent was adamant about pursuing all possible measures to prolong her life even it would affect the life quality Will consult surgery team for temp HD access placement since INR > 2.0 HD session after placing HD access today Likely she will be HD dependent for the rest of her life Next HD session tomorrow 2. Anemia. Hgb is 8.4 this am. Follow Hgb. Can start RUPERTO once she is on HD. 3. Hypercoagulation. INR remains > 2.0 so tunneled cath cannot be placed today Will ask for temp HD access placement 4- change in mental status fro hepatic encephalopathy and uremia Will do HD today. continue lactulose as per the primary service d/w Dr. Goldstein
--- NOTE | 2020-08-16 10:02 | CASEMGMT ---
NYDIA called Susana with the [facility] and gave her an update. NYDIA let her know patient may be started on dialysis. NYDIA also faxed her updates. Ly CHUNG MSW
[2020-08-16 11:20] LABS: Bedside Glucose 110 mg/dL (70-110)
--- NOTE | 2020-08-16 12:30 | CON.PCM_ITS ---
Problem List (1) Chronic renal disease, stage V Status: Chronic (2) CRD (chronic renal disease), stage IV Status: Chronic Reason for Consult Date of Consultation: 08/16/20 Reason for Consultation: Stage IV renal failure. In need of tunneled dialysis catheters. History of Present Illness: The patient is a 60 year old F who presented with lethargy and confusion. Patient was found to have pneumonia. Patient has been established with Dr. Wallace in July. I am unable to obtain a history for this patient. All of patient's history was from chart review. It appears patient has not previously been on dialysis. She was unable to answer any questions. Patient was only able to cry throughout my examination. From records, patient has a pacemaker that was placed in 2012 for left bundle branch block at [facility]. She is a resident of [place]. According to the longterm, she is her own power of research attorney. Patient's creatinine has increased from 2.99 on admission to 3.43. Patient is also on Coumadin as an outpatient. Past Medical History Past Medical History (Chronic Problems): Chronic Problems (Last Reviewed 08/09/20 @ 19:[address] Aston Casiano, DO) Heart failure (Chronic) Anemia (Chronic) Thrombocytopenia (Chronic) CKD (chronic kidney disease) stage 3, GFR 30-59 ml/min (Chronic) Chronic renal disease, stage V (Chronic) CRD (chronic renal disease), stage IV (Chronic) Asthma (Chronic) CVA (cerebral vascular accident) (Chronic) 2001 COPD (chronic obstructive pulmonary disease) (Chronic) History of PTCA (Chronic) Mid LAD bare metal stent 07/20/2002. RCA Bare metal stent 07/02/2006 History of permanent cardiac pacemaker placement (Chronic) 09/08/2013,[facility] Dr. 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 Aston Casiano, DO) Asthma (Chronic) J45.909 CVA (cerebral vascular accident) (Chronic) I63.9 2001 COPD (chronic obstructive pulmonary disease) (Chronic) J44.9 Above knee amputation of right lower extremity (Chronic) Z89.611 HLD (hyperlipidemia) (Chronic) E78.5 Coronary artery disease (Chronic) I25.10 Hypothyroidism (Chronic) E03.9 Atrial fibrillation (Chronic) I48.91 Ischemic cardiomyopathy (Chronic) I25.5 Diabetes mellitus (Chronic) E11.9 type II Morbid obesity (Chronic) E66.01 Allergies codeine Allergy (Verified 07/07/20 14:29) Rash latex Allergy (Verified 07/07/20 14:29) Itching Penicillins Allergy (Verified 07/07/20 14:29) Swelling dexamethasone [From Maxidex] Adverse Reaction (Verified 07/07/20 14:29) Unknown iodine Adverse Reaction (Verified 07/07/20 14:29) Itching morphine Adverse Reaction (Verified 07/07/20 14:29) Other contrast dye Allergy (Uncoded 07/07/20 14:29) GI upset GI upset Home Medications: Ambulatory Orders Medication Instructions Recorded Nitroglycerin [Nitrostat] 0.4 mg SL PRN PRN 07/19/13 Atorvastatin Calcium [Lipitor] 40 mg PO QHS 06/02/15 Gabapentin [Neurontin] 600 mg PO TID 06/02/15 Carvedilol [Coreg (Beta Yamilka)] 25 mg PO BID 07/07/17 Aspirin [Aspirin, Baby] 81 mg PO DAILY@0800 08/15/17 Furosemide 80 mg PO BREAKFAST 03/06/19 Ondansetron [Zofran Odt] 4 mg PO Q8H PRN PRN #10 tab 03/22/19 Allopurinol 300 mg PO DAILY 11/04/19 Insulin Glargine,Hum.rec.anlog 45 unit SQ QHS 11/04/19 [Lantus] Bupropion HCl [Bupropion Xl] 150 mg PO DAILY 07/07/20 Bupropion HCl [Bupropion Xl] 300 mg PO DAILY 07/07/20 Furosemide [Lasix] 40 mg PO DAILY@1200 07/07/20 Hydralazine HCl 25 mg PO TID 07/07/20 Acetaminophen [Tylenol Tablet] 650 mg PO Q6H PRN PRN tab 07/09/20 Mag Hydrox/Al Hydrox/Simeth 30 ml PO Q6H PRN PRN udc 07/09/20 [Mylanta II] Docusate Sodium [Colace] 200 mg PO BID 08/09/20 Insulin Lispro [Humalog KwikPen] See Protocol SQ ACHS 08/09/20 Isosorbide Mononitrate [Imdur] 30 mg PO DAILY 08/09/20 Multivitamin 1 tab PO DAILY 08/09/20 Nystatin Powder [Mycostatin Powder] 1 applic TOPICAL BID 08/09/20 Nystatin/Triamcin Cream [Mycolog] 1 applic TOPICAL BID 08/09/20 Omeprazole 20 mg PO DAILY 08/09/20 Polyethylene Glycol 3350 [Miralax] 17 gm PO DAILY 08/09/20 Potassium Chloride [K-Dur] 20 meq PO BIDCM 08/09/20 Warfarin Sodium 4 mg PO DAILY 08/09/20 Surgical History: Surgical History (Last Reviewed 08/09/20 @ 19:[address] Aston Casiano DO) History of PTCA (Chronic) Z98.61 Mid LAD bare metal stent 07/20/2002. RCA Bare metal stent 07/02/2006 History of permanent cardiac pacemaker placement (Chronic) Z95.0 09/08/2013,[facility] Dr. Wilkins [facility] History of tonsillectomy (Chronic) Z90.89 H/O: hysterectomy (Chronic) Z90.710 History of cholecystectomy (Chronic) Z90.49 H/O adenoidectomy (Chronic) Z90.89 Surgical History: adenoidectomy, cholecystectomy, hysterectomy, tonsillectomy, - - Right [id number] amputation, panniculectomy, pacemaker placement, left leg vein grafting/bypass. Psychiatric History: Anxiety, Depression [employer] History: No pertinent [employer] history Lives: [facility] Smoking Status: Former smoker Alcohol: None Drugs: Marijuana - *Family History Maternal History Items: Diabetes, Heart Disease, Hypertension Paternal History Items: - Review of Systems Unable to obtain accurate/complete ROS d/t: change in mental status Patient Problems: Active and Suspected Problems (Last Reviewed 08/09/20 @ 19:[address] Aston Casiano DO) MAX (acute kidney injury) (Acute) Healthcare-associated pneumonia (Acute) Hyperkalemia (Acute) Acute respiratory failure with hypoxia (Acute) - Physical Exam Vitals/I&O's: Vital Signs Temp Pulse Resp BP Pulse Ox 98.6 F 78 18 124/59 H 94 08/16/20 10:21 08/16/20 10:21 08/16/20 10:21 08/16/20 10:21 08/16/20 10:21 Oxygen Flow Rate (L/min) 4 Oxygen Delivery Method Nasal Cannula Weight: 387 lb 12.69 oz Body Mass Index (BMI) 51.2 Finger Stick Blood Glucose 77 Intake and Output for Last 24 Hours 08/14/20 08/15/20 08/16/20 23:59 23:59 23:59 Intake Total 1072.5 / 1122.5 770 / 820 160 / 160 Output Total 600 / 750 850 / 1050 650 / 650 Balance 472.5 / 372.5 -80 / -230 -490 / -490 General: Lethargic, Non-Cooperative, - - Morbidly obese Lungs: Diminished - bilaterally Cardiovascular: Regular rate, No murmurs Extremities: Edema - left lower extremity, - - Right lower extremity amputee Microbiology Past 72 Hours 08/09/20 12:30 Blood Culture (Wb) - Anticubital Right Blood Culture - Final No growth in 5 days. 08/09/20 12:30 Blood Culture (Wb) - Left Forearm Blood Culture - Final No growth in 5 days. Laboratory Results 08/15/20 16:41: POC Glucose 120 H 08/15/20 22:06: POC Glucose 112 H 08/16/20 05:54: WBC 5.2, RBC 2.95 L, Hgb 8.4 L, Hct 28.5 L, MCV 96.6, MCH 28.5, MCHC 29.5 L, RDW Std Deviation 71.2 H, RDW Coeff of Yoandy 20.6 H, Plt Count 118 L, MPV 11.1, Immature Gran % (Auto) 0.600, Neut % (Auto) 69.8, Lymph % (Auto) 17.2 L, Clare % (Auto) 8.4, Eos % (Auto) 3.4, Baso % (Auto) 0.6, Absolute Neuts (auto) 3.6, Absolute Lymphs (auto) 0.90, Nucleated RBC % 0, Differential Comment SCANNED, Hypochromasia RARE, Microcytosis RARE, Ovalocytes RARE 08/16/20 05:54: Sodium 136, Potassium 5.1, Chloride 104, Carbon Dioxide 24.0, Anion Gap 8, BUN 118 H*, Creatinine 3.43 H, Estim Creat Clear Calc 21.02, Est GFR (MDRD) Af Amer 18 L, Est GFR (MDRD) Non-Af 15 L, BUN/Creatinine Ratio 34.4 H , Glucose 106, Calcium 8.1 L, Total Bilirubin 0.60, AST 28, ALT 19, Alkaline Phosphatase 174 H, Total Protein 6.6, Albumin 1.7 L, Globulin 4.9 H, Albumin/Globulin Ratio 0.3 L 08/16/20 05:54: Ammonia 87.0 H 08/16/20 06:00: Random Vancomycin 19.0 H 08/16/20 06:50: POC Glucose 108 08/16/20 11:15: POC Glucose 110 Current Medications Acetaminophen (Acetaminophen 325 Mg Tablet) 650 mg PO Q6H PRN PRN PRN Reason: Pain Score 1-10/Temp > 100.7 F Al Hydroxide/Mg Hydroxide (Mag Hydrox/Al Hydrox/Simeth 30 Ml Udc) 30 ml PO Q6H PRN PRN PRN Reason: Gastric Burning Albuterol Sulfate (Albuterol 2.5 Mg/3 Ml Vial.Neb.) 2.5 mg INHALATION Q2H PRN PRN PRN Reason: SHORTNESS OF BREATH Albuterol/Ipratropium (Ipratropium/Albuterol Sulfate 3 Ml Ampul.Neb) 3 ml INHALATION Q4H.RT [facility] Last Admin: 08/16/20 07:06 Dose: 3 ml Documented by: Allopurinol (Allopurinol 300 Mg Tablet) 300 mg PO DAILY [facility] Last Admin: 08/16/20 08:57 Dose: 300 mg Documented by: Aspirin (Aspirin 81 Mg Tab.Chew) 81 mg PO DAILY@0800 [facility] Last Admin: 08/15/20 10:06 Dose: 81 mg Documented by: Atorvastatin Calcium (Atorvastatin Calcium 40 Mg Tablet) 40 mg PO QHS [facility] Last Admin: 08/15/20 20:51 Dose: 40 mg Documented by: Bupropion HCl (Bupropion (Xl) 150 Mg Tablet.Xl) 150 mg PO DAILY [facility] Last Admin: 08/16/20 08:57 Dose: 150 mg Documented by: Calamine/Phenol (Menthol/Lanolin/Calamine/Znox 113 Gm Tube) 1 applic TOPICAL BID [facility]; Protocol Last Admin: 08/16/20 08:56 Dose: 1 applicatio Documented by: Docusate Sodium (Docusate Sodium 100 Mg Capsule) 200 mg PO BID [facility] Last Admin: 08/16/20 08:58 Dose: 200 mg Documented by: Furosemide (Furosemide 40 Mg/4 Ml Vial) 40 mg IV BID@1000,1800 [facility] Last Admin: 08/16/20 08:58 Dose: 40 mg Documented by: Sodium Chloride () 250 mls @ 15 mls/hr IV .[id number] PRN PRN Reason: Additional IVPB Infusion Last Infusion: 08/10/20 12:43 Dose: Infused Documented by: Pantoprazole Sodium 40 mg/ (Sodium Chloride) 110 mls @ 330 mls/hr IV Q12 [facility] Last Infusion: 08/16/20 09:34 Dose: Infused Documented by: Insulin Human Lispro (Insulin Lispro 100 Unit/Ml Insuln.Pen) 0 unit SC ACHS [facility]; Protocol Last Admin: 08/16/20 11:23 Dose: Not Given Documented by: Lactulose (Lactulose 20 Gm/30 Ml Udc) 30 gm PO BID [facility] Last Admin: 08/16/20 09:59 Dose: 30 gm Documented by: Midodrine (Midodrine Hcl 5 Mg Tablet) 10 mg PO TID [facility] Last Admin: 08/16/20 05:17 Dose: 10 mg Documented by: Nystatin (Nystatin Powder 15gm Bottle) 1 applic TOPICAL BID [facility]; Protocol Last Admin: 08/16/20 09:01 Dose: 1 applicatio Documented by: Ondansetron HCl (Ondansetron 4 Mg/2 Ml Vial) 4 mg IV Q8H PRN PRN PRN Reason: NAUSEA Last Admin: 08/11/20 13:13 Dose: 4 mg Documented by: Polyethylene Glycol (Polyethylene Glycol 3350 17 Gm Packet) 17 gm PO DAILY [facility] Last Admin: 08/16/20 10:01 Dose: Not Given Documented by: Rifaximin (Rifaximin 550 Mg Tablet) 550 mg PO BID [facility] Last Admin: 08/16/20 08:57 Dose: 550 mg Documented by: Sodium Chloride (0.9% Saline Lock 10 Ml Syringe) 10 - 40 ml IV UD PRN PRN Reason: SALINE FLUSH Last Admin: 08/15/20 16:58 Dose: 10 ml Documented by: Assessment/Plan All Active Problems (Last Reviewed 08/09/20 @ 19:[address] Aston Casiano, DO) MAX (acute kidney injury) (Acute) Healthcare-associated pneumonia (Acute) Hyperkalemia (Acute) Acute respiratory failure with hypoxia (Acute) Infestation by bed bug (Resolved) I have been consulted in conjunction with Dr. Ceron. Impression: Chronic renal failure. In need of dialysis. Plan: Discussed patient with Dr. Ceron. Attempted to discuss procedure with patient, who started crying when I mentioned going on dialysis. Patient was asked if she had any questions and she continued to cry. I asked if I can help her with anything and again continued to cry. She was unable to appropriately communicate her concerns. Per records, dialysis was discussed with the patient who agreed to proceed, however as of today, I do not feel the patient is able to consent for herself. Patient's INR yesterday was 2.4. We will recheck an INR today. Dr. Ceron is agreeable to place tunneled dialysis catheters tomorrow at 10:00, if the patient becomes more aware of her surroundings and is able to consent to the procedure. I have discussed this patient with the hospitalist team, who agrees with the assessment of not being able to consent. We will keep the patient NPO. Thank you for allowing us to participate in this patient's care. Office Visits / Consults: [id number] IP Consult L3
--- NOTE | 2020-08-16 12:57 | CASEMGMT ---
Pt is confused at this time and unable to make decision regarding OP dialysis clinic at this time. This RN CM attempted to reach pt's mother in regards to same without success at this time as her phone just rings and rings. Referral to be started with [facility] at this time and can be switched if pt more A/O and able to make different decision. CM to follow. SStdaniella TEJEDA CM
--- NOTE | 2020-08-16 13:17 | CASEMGMT ---
Patient is confused so she is not able to give consent for dialysis catheter. GIANCARLO Ballard called patient's mom who is listed on contact list and there was no answer. She also called [facility] where patient came from and they said patient is normally alert and oriented and they just have her mom listed. NYDIA called Tatyana Stan with [facility], as she is patient's child support case officer. NYDIA left her a voice mail requesting a return call. NYDIA will continue to try and reach patient's mom. Ly CHUNG MSW
--- NOTE | 2020-08-16 13:55 | PN_ITS ---
<Arya Weaver - Last Filed: 08/16/20 13:55> Patient Problems: Active and Suspected Problems (Last Reviewed 08/09/20 @ 19:[address] Aston Casiano DO) MAX (acute kidney injury) (Acute) Healthcare-associated pneumonia (Acute) Hyperkalemia (Acute) Acute respiratory failure with hypoxia (Acute) Reason for Visit: Encephalopathy Subjective: Pt makes eye contact and groans. She does not answer questions. She was unable to provide consent for dialysis and her POA cannot be reached at this time. Vitals/I&O's: Vital Signs Temp Pulse Resp BP Pulse Ox 98.6 F 78 18 124/59 H 94 08/16/20 10:21 08/16/20 10:21 08/16/20 10:21 08/16/20 10:21 08/16/20 10:21 Oxygen Flow Rate (L/min) 4 Oxygen Delivery Method Nasal Cannula Weight: 387 lb 12.69 oz Body Mass Index (BMI) 51.2 Finger Stick Blood Glucose 77 Intake and Output for Last 24 Hours 08/14/20 08/15/20 08/16/20 23:59 23:59 23:59 Intake Total 1072.5 / 1122.5 770 / 820 160 / 160 Output Total 600 / 750 850 / 1050 650 / 650 Balance 472.5 / 372.5 -80 / -230 -490 / -490 General: Alert, Oriented x3, Cooperative HEENT: Atraumatic, PERRLA, EOMI, Normocephalic Neck: Supple, No JVD, Negative Carotid Bruits Lungs: Clear to auscultation, Normal air movement Cardiovascular: Regular rate, No murmurs Abdomen: Bowel Sounds Present, Soft, Non Tender, Obese Extremities: No edema, Capillary Refill Less than 3 Seconds Skin: No rashes, No breakdown Musculoskeletal: No Tenderness to Palpation of Joints or Extremities Neurological: Cranial nerves II-XII grossly intact Psych/Mental Status: Normal Affect, Appropriate, Alert and oriented to time, place, person, mood and affect Microbiology Past 72 Hours 08/09/20 12:30 Blood Culture (Wb) - Anticubital Right Blood Culture - Final No growth in 5 days. 08/09/20 12:30 Blood Culture (Wb) - Left Forearm Blood Culture - Final No growth in 5 days. Laboratory Results 08/15/20 16:41: POC Glucose 120 H 08/15/20 22:06: POC Glucose 112 H 08/16/20 05:54: WBC 5.2, RBC 2.95 L, Hgb 8.4 L, Hct 28.5 L, MCV 96.6, MCH 28.5, MCHC 29.5 L, RDW Std Deviation 71.2 H, RDW Coeff of Yoandy 20.6 H, Plt Count 118 L, MPV 11.1, Immature Gran % (Auto) 0.600, Neut % (Auto) 69.8, Lymph % (Auto) 17.2 L, [place] % (Auto) 8.4, Eos % (Auto) 3.4, Baso % (Auto) 0.6, Absolute Neuts (auto) 3.6, Absolute Lymphs (auto) 0.90, Nucleated RBC % 0, Differential Comment SCANNED, Hypochromasia RARE, Microcytosis RARE, Ovalocytes RARE 08/16/20 05:54: Sodium 136, Potassium 5.1, Chloride 104, Carbon Dioxide 24.0, Anion Gap 8, BUN 118 H*, Creatinine 3.43 H, Estim Creat Clear Calc 21.02, Est GFR (MDRD) Af Amer 18 L, Est GFR (MDRD) Non-Af 15 L, BUN/Creatinine Ratio 34.4 H , Glucose 106, Calcium 8.1 L, Total Bilirubin 0.60, AST 28, ALT 19, Alkaline Phosphatase 174 H, Total Protein 6.6, Albumin 1.7 L, Globulin 4.9 H, Albumin/Globulin Ratio 0.3 L 08/16/20 05:54: Ammonia 87.0 H 08/16/20 06:00: Random Vancomycin 19.0 H 08/16/20 06:50: POC Glucose 108 08/16/20 11:15: POC Glucose 110 Current Medications Acetaminophen (Acetaminophen 325 Mg Tablet) 650 mg PO Q6H PRN PRN PRN Reason: Pain Score 1-10/Temp > 100.7 F Al Hydroxide/Mg Hydroxide (Mag Hydrox/Al Hydrox/Simeth 30 Ml Udc) 30 ml PO Q6H PRN PRN PRN Reason: Gastric Burning Albuterol Sulfate (Albuterol 2.5 Mg/3 Ml Vial.Neb.) 2.5 mg INHALATION Q2H PRN P RN PRN Reason: SHORTNESS OF BREATH Albuterol/Ipratropium (Ipratropium/Albuterol Sulfate 3 Ml Ampul.Neb) 3 ml INHALATION Q4H.RT [facility] Last Admin: 08/16/20 07:06 Dose: 3 ml Documented by: Allopurinol (Allopurinol 300 Mg Tablet) 300 mg PO DAILY [facility] Last Admin: 08/16/20 08:57 Dose: 300 mg Documented by: Aspirin (Aspirin 81 Mg Tab.Chew) 81 mg PO DAILY@0800 [facility] Last Admin: 08/15/20 10:06 Dose: 81 mg Documented by: Atorvastatin Calcium (Atorvastatin Calcium 40 Mg Tablet) 40 mg PO QHS [facility] Last Admin: 08/15/20 20:51 Dose: 40 mg Documented by: Bupropion HCl (Bupropion (Xl) 150 Mg Tablet.Xl) 150 mg PO DAILY [facility] Last Admin: 08/16/20 08:57 Dose: 150 mg Documented by: Calamine/Phenol (Menthol/Lanolin/Calamine/Znox 113 Gm Tube) 1 applic TOPICAL BID [facility]; Protocol Last Admin: 08/16/20 08:56 Dose: 1 applicatio Documented by: Docusate Sodium (Docusate Sodium 100 Mg Capsule) 200 mg PO BID [facility] Last Admin: 08/16/20 08:58 Dose: 200 mg Documented by: Furosemide (Furosemide 40 Mg/4 Ml Vial) 40 mg IV BID@1000,1800 [facility] Last Admin: 08/16/20 08:58 Dose: 40 mg Documented by: Sodium Chloride () 250 mls @ 15 mls/hr IV .[id number] PRN PRN Reason: Additional IVPB Infusion Last Infusion: 08/10/20 12:43 Dose: Infused Documented by: Pantoprazole Sodium 40 mg/ (Sodium Chloride) 110 mls @ 330 mls/hr IV Q12 [facility] Last Infusion: 08/16/20 09:34 Dose: Infused Documented by: Insulin Human Lispro (Insulin Lispro 100 Unit/Ml Insuln.Pen) 0 unit SC ACHS [facility]; Protocol Last Admin: 08/16/20 11:23 Dose: Not Given Documented by: Lactulose (Lactulose 20 Gm/30 Ml Udc) 30 gm PO BID [facility] Last Admin: 08/16/20 09:59 Dose: 30 gm Documented by: Midodrine (Midodrine Hcl 5 Mg Tablet) 10 mg PO TID [facility] Last Admin: 08/16/20 13:22 Dose: 10 mg Documented by: Nystatin (Nystatin Powder 15gm Bottle) 1 applic TOPICAL BID [facility]; Protocol Last Admin: 08/16/20 09:01 Dose: 1 applicatio Documented by: Ondansetron HCl (Ondansetron 4 Mg/2 Ml Vial) 4 mg IV Q8H PRN PRN PRN Reason: NAUSEA Last Admin: 08/11/20 13:13 Dose: 4 mg Documented by: Polyethylene Glycol (Polyethylene Glycol 3350 17 Gm Packet) 17 gm PO DAILY [facility] Last Admin: 08/16/20 10:01 Dose: Not Given Documented by: Rifaximin (Rifaximin 550 Mg Tablet) 550 mg PO BID [facility] Last Admin: 08/16/20 08:57 Dose: 550 mg Documented by: Sodium Chloride (0.9% Saline Lock 10 Ml Syringe) 10 - 40 ml IV UD PRN PRN Reason: SALINE FLUSH Last Admin: 08/15/20 16:58 Dose: 10 ml Documented by: STROKE Vital Signs/Narrative: Vital Signs Temp Pulse Resp BP Pulse Ox 08/16/20 10:21 98.6 F 78 18 124/59 H 94 Medical Necessity - Tobacco Use Smoking Status: Former smoker Assessment/Plan All Active Problems (Last Reviewed 08/09/20 @ 19:[address] Aston Casiano, ) MAX (acute kidney injury) (Acute) Healthcare-associated pneumonia (Acute) Hyperkalemia (Acute) Acute respiratory failure with hypoxia (Acute) Infestation by bed bug (Resolved) 1. Hypoxic respiratory failure secondary to pneumonia and acute on chronic systolic congestive heart failure-she completed Vanco and aztreonam for pneumonia and is now off antibiotics. Continue IV Lasix. Pulmonology following. Chest x-ray on 1114 demonstrated mild congestive heart failure. 2. Hypotension-continue midodrine, off home blood pressure medications. Hypotension has markedly improved, however I suspect that if she starts dialysis this will be an ongoing issue. 3. Acute kidney injury-on CKD 4-she had 800 out yesterday, BUN is increased however creatinine is slightly increased. Nephrology is following and plans for dialysis however the patient is unable to provide surgical team with consent at this time. POA cannot be reached at this time. Hyperkalemia is resolved. 4. Liver cirrhosis with abnormal LFTs and elevated ammonia,-2 bowel movements yesterday, still significantly encephalopathic with increasing ammonia-increase lactulose today. Continue Xifaxan 5. Acute metabolic encephalopathy secondary to combination of the above. 6. History of CAD with prior stents-continue aspirin and statin. Off carvedilol for hypotension-see #2 7. Acute urinary tract infection-completed therapy for this. Culture with Klebsiella. 8. acute on chronic blood loss anemia secondary to acute GI bleed-Coumadin and aspirin held. Hemoglobin stable. Continue IV PPI. Hemoccult was positive. Hemoglobin is stable at this time. 9. Chronic atrial fibrillation-rate is controlled, off warfarin for #8. 10. Thrombocytopenia-unclear etiology, suspect due to cirrhosis. Avoid heparin products. DVT prophylaxis: CDs. Discharge planning: Prognosis is poor. Patient may need dialysis. Attempting to contact next of kin. Patient unable to make decisions for self at this time. This patient was seen by Arya Weaver PA-C under the supervision of Doctor Triston. <Cristi Goldstein - Last Filed: 08/16/20 14:26> Vitals/I&O's: Vital Signs Temp Pulse Resp BP Pulse Ox 98.6 F 78 18 124/59 H 94 08/16/20 10:21 08/16/20 10:21 08/16/20 10:21 08/16/20 10:21 08/16/20 10:21 Oxygen Flow Rate (L/min) 4 Oxygen Delivery Method Nasal Cannula Weight: 175.9 kg Body Mass Index (BMI) 51.2 Finger Stick Blood Glucose 77 Intake and Output for Last 24 Hours 08/14/20 08/15/20 08/16/20 23:59 23:59 23:59 Intake Total 1072.5 / 1122.5 770 / 820 160 / 160 Output Total 600 / 750 850 / 1050 650 / 650 Balance 472.5 / 372.5 -80 / -230 -490 / -490 Microbiology Past 72 Hours 08/09/20 12:30 Blood Culture (Wb) - Anticubital Right Blood Culture - Final No growth in 5 days. 08/09/20 12:30 Blood Culture (Wb) - Left Forearm Blood Culture - Final No growth in 5 days. Laboratory Results 08/15/20 16:41: POC Glucose 120 H 08/15/20 22:06: POC Glucose 112 H 08/16/20 05:54: WBC 5.2, RBC 2.95 L, Hgb 8.4 L, Hct 28.5 L, MCV 96.6, MCH 28.5, MCHC 29.5 L, RDW Std Deviation 71.2 H, RDW Coeff of Yoandy 20.6 H, Plt Count 118 L, MPV 11.1, Immature Gran % (Auto) 0.600, Neut % (Auto) 69.8, Lymph % (Auto) 17.2 L, [place] % (Auto) 8.4, Eos % (Auto) 3.4, Baso % (Auto) 0.6, Absolute Neuts (auto) 3.6, Absolute Lymphs (auto) 0.90, Nucleated RBC % 0, Differential Comment SCANNED, Hypochromasia RARE, Microcytosis RARE, Ovalocytes RARE 08/16/20 05:54: Sodium 136, Potassium 5.1, Chloride 104, Carbon Dioxide 24.0, Anion Gap 8, BUN 118 H*, Creatinine 3.43 H, Estim Creat Clear Calc 21.02, Est GFR (MDRD) Af Amer 18 L, Est GFR (MDRD) Non-Af 15 L, BUN/Creatinine Ratio 34.4 H , Glucose 106, Calcium 8.1 L, Total Bilirubin 0.60, AST 28, ALT 19, Alkaline Phosphatase 174 H, Total Protein 6.6, Albumin 1.7 L, Globulin 4.9 H, Albumin/Globulin Ratio 0.3 L 08/16/20 05:54: Ammonia 87.0 H 08/16/20 06:00: Random Vancomycin 19.0 H 08/16/20 06:50: POC Glucose 108 08/16/20 11:15: POC Glucose 110 Current Medications Acetaminophen (Acetaminophen 325 Mg Tablet) 650 mg PO Q6H PRN PRN PRN Reason: Pain Score 1-10/Temp > 100.7 F Al Hydroxide/Mg Hydroxide (Mag Hydrox/Al Hydrox/Simeth 30 Ml Udc) 30 ml PO Q6H PRN PRN PRN Reason: Gastric Burning Albuterol Sulfate (Albuterol 2.5 Mg/3 Ml Vial.Neb.) 2.5 mg INHALATION Q2H PRN PRN PRN Reason: SHORTNESS OF BREATH Albuterol/Ipratropium (Ipratropium/Albuterol Sulfate 3 Ml Ampul.Neb) 3 ml INHALATION Q4H.RT [facility] Last Admin: 08/16/20 07:06 Dose: 3 ml Documented by: Allopurinol (Allopurinol 300 Mg Tablet) 300 mg PO DAILY [facility] Last Admin: 08/16/20 08:57 Dose: 300 mg Documented by: Aspirin (Aspirin 81 Mg Tab.Chew) 81 mg PO DAILY@0800 [facility] Last Admin: 08/15/20 10:06 Dose: 81 mg Documented by: Atorvastatin Calcium (Atorvastatin Calcium 40 Mg Tablet) 40 mg PO QHS [facility] Last Admin: 08/15/20 20:51 Dose: 40 mg Documented by: Bupropion HCl (Bupropion (Xl) 150 Mg Tablet.Xl) 150 mg PO DAILY [facility] Last Admin: 08/16/20 08:57 Dose: 150 mg Documented by: Calamine/Phenol (Menthol/Lanolin/Calamine/Znox 113 Gm Tube) 1 applic TOPICAL BID [facility]; Protocol Last Admin: 08/16/20 08:56 Dose: 1 applicatio Documented by: Docusate Sodium (Docusate Sodium 100 Mg Capsule) 200 mg PO BID [facility] Last Admin: 08/16/20 08:58 Dose: 200 mg Documented by: Furosemide (Furosemide 40 Mg/4 Ml Vial) 40 mg IV BID@1000,1800 [facility] Last Admin: 08/16/20 08:58 Dose: 40 mg Documented by: Sodium Chloride () 250 mls @ 15 mls/hr IV .[id number] PRN PRN Reason: Additional IVPB Infusion Last Infusion: 08/10/20 12:43 Dose: Infused Documented by: Pantoprazole Sodium 40 mg/ (Sodium Chloride) 110 mls @ 330 mls/hr IV Q12 [facility] Last Infusion: 08/16/20 09:34 Dose: Infused Documented by: Insulin Human Lispro (Insulin Lispro 100 Unit/Ml Insuln.Pen) 0 unit SC ACHS [facility]; Protocol Last Admin: 08/16/20 11:23 Dose: Not Given Documented by: Lactulose (Lactulose 20 Gm/30 Ml Udc) 30 gm PO BID [facility] Last Admin: 08/16/20 09:59 Dose: 30 gm Documented by: Midodrine (Midodrine Hcl 5 Mg Tablet) 10 mg PO TID [facility] Last Admin: 08/16/20 13:22 Dose: 10 mg Documented by: Nystatin (Nystatin Powder 15gm Bottle) 1 applic TOPICAL BID [facility]; Protocol Last Admin: 08/16/20 09:01 Dose: 1 applicatio Documented by: Ondansetron HCl (Ondansetron 4 Mg/2 Ml Vial) 4 mg IV Q8H PRN PRN PRN Reason: NAUSEA Last Admin: 08/11/20 13:13 Dose: 4 mg Documented by: Polyethylene Glycol (Polyethylene Glycol 3350 17 Gm Packet) 17 gm PO DAILY [facility] Last Admin: 08/16/20 10:01 Dose: Not Given Documented by: Rifaximin (Rifaximin 550 Mg Tablet) 550 mg PO BID [facility] Last Admin: 08/16/20 08:57 Dose: 550 mg Documented by: Sodium Chloride (0.9% Saline Lock 10 Ml Syringe) 10 - 40 ml IV UD PRN PRN Reason: SALINE FLUSH Last Admin: 08/15/20 16:58 Dose: 10 ml Documented by: STROKE Vital Signs/Narrative: Vital Signs Temp Pulse Resp BP Pulse Ox 08/16/20 10:21 98.6 F 78 18 124/59 H 94 Assessment/Plan This patient was seen in conjunction with Arya Weaver PA-C . I have independently interviewed and examined the patient and reviewed pertinent historical, laboratory, and other data. Please refer to Arya Weaver PA-C note for details of this patient's presentation, findings, and recommendations. I have reviewed Arya Weaver PA-C note and concur with documented findings. In brief, patient is a 60-year-old lady with multiple comorbidities admitted with increasing confusion and assessment of acute hypoxic respiratory failure secondary to combination of pneumonia CHF made admitted to monitored bed for further management Physical Examination: GENERAL: Lethargic HEENT: Atraumatic; NECK; supple, normal thyroid, RESPIRATORY: Diminished to auscultation CARDIOVASCULAR: Regular S1 S2, GI: soft, normoactive bowel sounds, : No Renal angle tenderness; EXTREMITIES: Right AKA MUSCULOSKELETAL: no muscle waisting NEURO: A no lateralizing signs. Assessment: 1. Acute hypoxic respiratory failure 2. Pneumonia with suspected multidrug resistant organism 3. Acute congestive heart failure with reduced ejection fraction 4. Acute metabolic encephalopathy 5. Hypertension 6. Chronic kidney disease stage III/IV with worsening azotemia with plans for initiation of dialysis 7. Cirrhosis of the liver 8. Diabetes mellitus type 2 with complications including diabetic nephropathy 9. Paroxysmal A. fib 10. Essential hypertension blood pressure currently on hold in view of hypotension 11. Thrombocytopenia secondary to chronic liver disease 12. Acute kidney injury superimposed on chronic kidney disease stage IV 13. Dyslipidemia 14. Gout 15. GERD 16. Conduction system disorder status post pacemaker placement 17. Status post right AKA 18. Depression with anxiety 19. Previous history of DVT 20. Physical deconditioning Recommendations: 1. I have discussed the results of my overview and impressions with the patient 2. Options for management were reviewed Inpatient E&M: 26095 Subs Hosp L3
--- NOTE | 2020-08-16 14:27 | CASEMGMT ---
NYDIA received a return call from Tatyana Baptiste at [facility]. She said patient's mom is . She said she has a son, but she is not sure how long it has been since they have been in contact. She said patient's boyfriend is Pee and her aide is Debo Mac. She said Debo's number is [phone]. Number listed in chart is incorrect so SW fixed this. She gave SW a number for Pee, but it was actually not a working number. SW called Debo, introduced self and role at [facility]. SW asked if she knows any information on patient's son and she said she does not. She did however have a phone number for Pee- [phone]. SW called patient's boyfriend Pee. SW introduced self and role at [facility]. At first he said patient didn't have a son and then he said she does, but does not have much contact with him. He could only give SW his first name as that is all he remembered. His name is Jeffry and patient calls him Mike. He did not have any contact information for him at all. SW gave him SW's name and number in the event he discovers anymore information. He asked if SW was looking for next of kin and SW told him yes. He said he has been to family reunions with her. He said she is from the [place]. He said he will get back to if he comes up with anything. Upon looking at patient's old visits in [facility] her son's name was discovered, but phone and address listed were not correct. Her son's name is Jeffry Richard. Ly [employer]
[2020-08-16 15:49] LABS: International Normalized Ratio 2.3; Prothrombin Time (Protime)PT. 25.1 SECONDS (11.7-14.9)
[2020-08-16 16:30] LABS: Bedside Glucose 137 mg/dL (70-110)
[2020-08-16] MEDS: 0.9% Saline Lock 10 ML Syringe IV ×2 (17:44→17:46)
[2020-08-16] MEDS: Atorvastatin Calcium 40 MG Tablet PO (21:19)
[2020-08-16 21:30] LABS: Bedside Glucose 106 mg/dL (70-110)
[2020-08-17] VITALS (9 sets, daily range): BP systolic 99–136; BP diastolic 55–68; PULSE 71–82; RESP 18–22; TEMP 36.2–37.1; O2SAT 93–97
[2020-08-17 05:49] LABS: Absolute Lymphocyte Count 0.82 X10^3/uL (0.83-4.51); Absolute Neutrophil Count 3.2 X10^3/uL (2.0-7.7); Basophil# 0.03 X10^3/uL; Basophil% 0.6 % (0-1); Eosinophil# 0.15 X10^3/uL; Eosinophils% 3.2 % (0-5); Hematocrit 27.5 % (37-47); Lymphocyte # 0.82 X10^3/ul (4.0); Lymphocyte % 17.6 % (19-41); Mean Corp Hgb Conc 29.1 g/dL (32-36); Mean Corpuscular Hgb 28.4 pg (27.0-32.0); Mean Corpuscular Volume 97.5 fL (81-99); Mean Platelet Vol. 10.9 fl (6.2-12.0); Monocyte# 0.41 X10^3/uL; Monocyte% 8.8 % (0-10); NRBC Flagged by Analyzer 0.4 % (0-5); Neutrophil # 3.21 X10^3/uL (2.7-7.7); Neutrophil % 69.2 % (47-70); POSITIVE MORPHOLOGY YES; Platelet Count 113 K/mm3 (150-450); RBC Distribution Width CV 20.8 % (11.6-14.6); RBC Distribution Width SD 72.5 fl (35.1-43.9); Red Blood Count 2.82 M/mm3 (4.2-5.4); White Blood Count 4.7 K/mm3 (4.4-11.0)
[2020-08-17 05:51] LABS: Differential Indicated SCAN CRITERIA MET
--- NOTE | 2020-08-17 05:55 | EKG12_ITS ---
Test Reason : AM EKG Blood Pressure : / mmHG Vent. Rate : 079 BPM Atrial Rate : 079 BPM P-R Int : 000 ms QRS Dur : 216 ms QT Int : 486 ms P-R-T Axes : 000 259 054 degrees QTc Int : 557 ms Consider Biventricular Pacemaker Confirmed by LIO LOPEZ, HINA ([id number]), production editor ISAIAH RIOS ([id number]) on 08/18/2020 1:56:42 PM Referred By: PETE Confirmed By:HINA VACA MD
[2020-08-17 06:02] LABS: International Normalized Ratio 2.5; Partial Thromboplast Time 42.6 Seconds (24.1-36.2); Prothrombin Time (Protime)PT. 26.8 SECONDS (11.7-14.9)
[2020-08-17 06:09] LABS: Differential Comment SCANNED; Microcytosis RARE; Polychromasia RARE
[2020-08-17] MEDS: Midodrine HCl 5 MG Tablet 10 MG PO ×3 (06:09→22:37)
[2020-08-17 06:40] LABS: Bedside Glucose 101 mg/dL (70-110)
[2020-08-17 06:55] LABS: ALB/GLOB Ratio 0.4 RATIO (0.9-2.4); AST(SGOT) 25 U/L (15-37); Alanine Aminotransfer ALT/SGPT 18 U/L (13-56); Albumin, Serum 1.7 g/dL (3.2-5.0); Alkaline Phosphatase 162 U/L (45-117); Anion Gap 8 (5-15); BUN 115 mg/dL (7-18); BUN/Creat Ratio 33.5 RATIO (10-20); Chloride 106 mmol/L (98-107); Creatinine, Serum 3.43 mg/dL (0.55-1.02); EST Glomerular Filtration Rate 15 mL/min (>60); Est Glom Filt Rate - Afr Amer 18 mL/min (>60); Estimated Creatinine Clearance 21.02 ml/min; Globulin 4.5 g/dL (2.2-4.2); Glucose 98 mg/dL (74-106); Potassium 4.7 mmol/L (3.5-5.1); Protein, Total 6.2 g/dL (6.4-8.2); Sodium Level 137 mmol/L (136-145); Thyroid Stim Hormone (TSH) 5.18 uIU/mL (0.358-3.74)
[2020-08-17 08:30] LABS: Hemoglobin A1c 5.9 % (3.8-5.6)
[2020-08-17 08:53] LABS: Free T3 0.8 pg/mL (2.18-3.98); T4 Free Direct 0.83 ng/dL (0.76-1.46)
--- NOTE | 2020-08-17 09:22 | PCM.PN.REN ---
Patient Problems: Active and Suspected Problems (Last Reviewed 08/09/20 @ 19:[address] Aston Casiano, DO) MAX (acute kidney injury) (Acute) Healthcare-associated pneumonia (Acute) Hyperkalemia (Acute) Acute respiratory failure with hypoxia (Acute) Subjective: Patient agreed for HD access placement this morning denied worsening breathing No CP - Physical Exam Vitals/I&O's: Vital Signs Temp Pulse Resp BP Pulse Ox 98.6 F 71 18 112/59 L 97 08/17/20 06:41 08/17/20 06:41 08/17/20 06:41 08/17/20 06:41 08/17/20 06:54 Oxygen Flow Rate (L/min) 4 Oxygen Delivery Method Nasal Cannula Weight: 175.9 kg Body Mass Index (BMI) 51.2 Finger Stick Blood Glucose 77 Intake and Output for Last 24 Hours 08/15/20 08/16/20 08/17/20 23:59 23:59 23:59 Intake Total 770 / 820 370 / 370 0 / 0 Output Total 850 / 1050 1200 / 1200 280 / 280 Balance -80 / -230 -830 / -830 -280 / -280 General: Alert, Cooperative, No apparent distress HEENT: Atraumatic Oral: Moist Mucosa Neck: Supple, No JVD Lungs: Clear to auscultation, Normal air movement, No rhonchi Cardiovascular: Regular rate, Regular Rhythm, Normal S1, Normal S2 Abdomen: Bowel Sounds Present, Soft, Non Tender, Non-Distended Extremities: Edema - +3 edema of LE Neurological: Cranial nerves II-XII grossly intact, Neuro grossly intact Psych/Mental Status: Appropriate Microbiology Past 72 Hours 08/09/20 12:30 Blood Culture (Wb) - Anticubital Right Blood Culture - Final No growth in 5 days. 08/09/20 12:30 Blood Culture (Wb) - Left Forearm Blood Culture - Final No growth in 5 days. Laboratory Results 08/16/20 11:15: POC Glucose 110 08/16/20 14:45: PT 25.1 H, INR 2.3 08/16/20 16:24: POC Glucose 137 H 08/16/20 21:04: POC Glucose 106 08/17/20 05:40: WBC 4.7, RBC 2.82 L, Hgb 8.0 L, Hct 27.5 L, MCV 97.5, MCH 28.4, MCHC 29.1 L, RDW Std Deviation 72.5 H, RDW Coeff of Yoandy 20.8 H, Plt Count 113 L, MPV 10.9, Immature Gran % (Auto) 0.600, Neut % (Auto) 69.2, Lymph % (Auto) 17.6 L, [place] % (Auto) 8.8, Eos % (Auto) 3.2, Baso % (Auto) 0.6, Absolute Neuts (auto) 3.2, Absolute Lymphs (auto) 0.82 L, Nucleated RBC % 0.4, Differential Comment SCANNED, Polychromasia RARE, Microcytosis RARE 08/17/20 05:40: Sodium 137, Potassium 4.7, Chloride 106, Carbon Dioxide 23.0, Anion Gap 8, BUN 115 H*, Creatinine 3.43 H, Estim Creat Clear Calc 21.02, Est GFR (MDRD) Af Amer 18 L, Est GFR (MDRD) Non-Af 15 L, BUN/Creatinine Ratio 33.5 H, Glucose 98, Calcium 8.0 L, Total Bilirubin 0.60, AST 25, ALT 18, Alkaline Phosphatase 162 H, Total Protein 6.2 L, Albumin 1.7 L, Globulin 4.5 H, Albumin/Globulin Ratio 0.4 L, TSH 5.18 H 08/17/20 05:40: Ammonia 83.0 H 08/17/20 05:40: PT 26.8 H, INR 2.5, APTT 42.6 H 08/17/20 05:40: Hemoglobin A1c 5.9 H 08/17/20 05:40: Free T4 0.83, Free T3 pg/dL 0.8 L 08/17/20 06:37: POC Glucose 101 Current Medications Acetaminophen (Acetaminophen 325 Mg Tablet) 650 mg PO Q6H PRN PRN PRN Reason: Pain Score 1-10/Temp > 100.7 F Al Hydroxide/Mg Hydroxide (Mag Hydrox/Al Hydrox/Simeth 30 Ml Udc) 30 ml PO Q6H PRN PRN PRN Reason: Gastric Burning Albuterol Sulfate (Albuterol 2.5 Mg/3 Ml Vial.Neb.) 2.5 mg INHALATION Q2H PRN PRN PRN Reason: SHORTNESS OF BREATH Albuterol/Ipratropium (Ipratropium/Albuterol Sulfate 3 Ml Ampul.Neb) 3 ml INHALATION Q4H.RT [facility] [place] Last Admin: 08/16/20 23:20 Dose: 3 ml Documented by: Allopurinol (Allopurinol 300 Mg Tablet) 300 mg PO DAILY [facility] [place] Last Admin: 08/16/20 08:57 Dose: 300 mg Documented by: Aspirin (Aspirin 81 Mg Tab.Chew) 81 mg PO DAILY@0800 [facility] [place] Last Admin: 08/15/20 10:06 Dose: 81 mg Documented by: Atorvastatin Calcium (Atorvastatin Calcium 40 Mg Tablet) 40 mg PO QHS [facility] [place] Last Admin: 08/16/20 21:19 Dose: 40 mg Documented by: Bupropion HCl (Bupropion (Xl) 150 Mg Tablet.Xl) 150 mg PO DAILY [facility] [place] Last Admin: 08/16/20 08:57 Dose: 150 mg Documented by: Calamine/Phenol (Menthol/Lanolin/Calamine/Znox 113 Gm Tube) 1 applic TOPICAL BID [facility] [place]; Protocol Last Admin: 08/16/20 21:16 Dose: 1 applicatio Documented by: Docusate Sodium (Docusate Sodium 100 Mg Capsule) 200 mg PO BID [facility] [place] Last Admin: 08/16/20 21:19 Dose: 200 mg Documented by: Furosemide (Furosemide 40 Mg/4 Ml Vial) 40 mg IV BID@1000,1800 [facility] [place] Last Admin: 08/16/20 17:44 Dose: 40 mg Documented by: Sodium Chloride () 250 mls @ 15 mls/hr IV .[id number] PRN PRN Reason: Additional IVPB Infusion Last Infusion: 08/10/20 12:43 Dose: Infused Documented by: Pantoprazole Sodium 40 mg/ (Sodium Chloride) 110 mls @ 330 mls/hr IV Q12 [facility] [place] Last Infusion: 08/16/20 21:36 Dose: Infused Documented by: Insulin Human Lispro (Insulin Lispro 100 Unit/Ml Insuln.Pen) 0 unit SC ACHS [facility] [place]; Protocol Last Admin: 08/17/20 06:41 Dose: Not Given Documented by: Lactulose (Lactulose 20 Gm/30 Ml Udc) 30 gm PO BID [facility] [place] Last Admin: 08/16/20 21:18 Dose: 30 gm Documented by: Midodrine (Midodrine Hcl 5 Mg Tablet) 10 mg PO TID [facility] [place] Last Admin: 08/17/20 06:09 Dose: 10 mg Documented by: Nystatin (Nystatin Powder 15gm Bottle) 1 applic TOPICAL BID [facility]; Protocol Last Admin: 08/16/20 21:16 Dose: 1 applicatio Documented by: Ondansetron HCl (Ondansetron 4 Mg/2 Ml Vial) 4 mg IV Q8H PRN PRN PRN Reason: NAUSEA Last Admin: 08/11/20 13:13 Dose: 4 mg Documented by: Polyethylene Glycol (Polyethylene Glycol 3350 17 Gm Packet) 17 gm PO DAILY [facility] Last Admin: 08/16/20 10:01 Dose: Not Given Documented by: Rifaximin (Rifaximin 550 Mg Tablet) 550 mg PO BID [facility] Last Admin: 08/16/20 21:19 Dose: 550 mg Documented by: Sodium Chloride (0.9% Saline Lock 10 Ml Syringe) 10 - 40 ml IV UD PRN PRN Reason: SALINE FLUSH Last Admin: 08/16/20 17:46 Dose: 10 ml Documented by: Medical Necessity - Tobacco Use Smoking Status: Former smoker Assessment/Plan All Active Problems (Last Reviewed 08/09/20 @ 19:[address] Aston Casiano DO) MAX (acute kidney injury) (Acute) Healthcare-associated pneumonia (Acute) Hyperkalemia (Acute) Acute respiratory failure with hypoxia (Acute) Infestation by bed bug (Resolved) 1. Acute kidney injury on chronic kidney disease stage 4.Baseline SCr was around 2.5 mg/dL MAX is likely prerenal from cardiorenal syndrome. FEUrea was 14% on 08/12/20. UOP remains sub optimal despite lasix. she is fluid overloaded with BUN > 110 [employer] is indicated and this was discussed with the patient by Dr Dorsey when she was awake and oriented. Patent was adamant about pursuing all possible measures to prolong her life even it would affect the life quality. Patient agreed to pursue HD today HD access placement today er Dr Ceron HD session after placing HD access today Likely she will be HD dependent for the rest of her life Next HD session tomorrow 2. Anemia. Hgb is 8.4 this am. Follow Hgb. Can start RUPERTO once she is on HD. 3. Hypercoagulation.INR is 2.5 this am. might need FFR prior to place tunneled cath. Will defer to Dr. Ceron 4- change in mental status fro hepatic encephalopathy and uremia Improved Will do HD today. continue lactulose as per the primary service d/w Dr. Goldstein
--- NOTE | 2020-08-17 09:36 | PN_ITS ---
<Arya Weaver - Last Filed: 08/17/20 09:36> Patient Problems: Active and Suspected Problems (Last Reviewed 08/09/20 @ 19:[address] Aston Casiano, DO) MAX (acute kidney injury) (Acute) Healthcare-associated pneumonia (Acute) Hyperkalemia (Acute) Acute respiratory failure with hypoxia (Acute) Reason for Visit: Encephalopathy Subjective: The patient remains significantly lethargic this AM. I was able to wake her up and ask her questions. She was able to tell me her name, where she is, and what year it is correctly. Throughout this she was falling asleep, staring off blankly, and required me to repeatedly ask each question. She states she knows that dialysis sucks. I explained the basics of dialysis to her. I asked her if she would want dialysis if it were required to keep her alive. She immediately and clearly answered No. She states she has some diffuse abdominal discomfort. She is not SOB and has no fever chills or cough. She has good improvement in her urine output 600 to 850 to 122 cc daily, so far 280 cc out today. Vitals/I&O's: Vital Signs Temp Pulse Resp BP Pulse Ox 98.6 F 71 18 112/59 L 97 08/17/20 06:41 08/17/20 06:41 08/17/20 06:41 08/17/20 06:41 08/17/20 06:54 Oxygen Flow Rate (L/min) 4 Oxygen Delivery Method Nasal Cannula Weight: 387 lb 12.69 oz Body Mass Index (BMI) 51.2 Finger Stick Blood Glucose 77 Intake and Output for Last 24 Hours 08/15/20 08/16/20 08/17/20 23:59 23:59 23:59 Intake Total 770 / 820 370 / 370 0 / 0 Output Total 850 / 1050 1200 / 1200 280 / 280 Balance -80 / -230 -830 / -830 -280 / -280 General: Alert, Oriented x3, Cooperative, Lethargic, - - pt requires frequent re-orientation to conversation. She falls back asleep before answering questions, sometimes starting off. With repeated questioning she will answer questions. HEENT: Atraumatic, PERRLA, EOMI, Normocephalic Neck: Supple, No JVD, Negative Carotid Bruits Lungs: Clear to auscultation, Normal air movement Cardiovascular: Regular rate, No murmurs Abdomen: Bowel Sounds Present, Soft, Non Tender Extremities: No edema, Capillary Refill Less than 3 Seconds Skin: No rashes, No breakdown Musculoskeletal: No Tenderness to Palpation of Joints or Extremities Neurological: Cranial nerves II-XII grossly intact Psych/Mental Status: Normal Affect, Appropriate Microbiology Past 72 Hours 08/17/20 01:07 Sputum, Expectorated/Coughed Gram Stain - Final 08/09/20 12:30 Blood Culture (Wb) - Anticubital Right Blood Culture - Final No growth in 5 days. 08/09/20 12:30 Blood Culture (Wb) - Left Forearm Blood Culture - Final No growth in 5 days. Laboratory Results 08/16/20 11:15: POC Glucose 110 08/16/20 14:45: PT 25.1 H, INR 2.3 08/16/20 16:24: POC Glucose 137 H 08/16/20 21:04: POC Glucose 106 08/17/20 05:40: WBC 4.7, RBC 2.82 L, Hgb 8.0 L, Hct 27.5 L, MCV 97.5, MCH 28.4, MCHC 29.1 L, RDW Std Deviation 72.5 H, RDW Coeff of Yoandy 20.8 H, Plt Count 113 L, MPV 10.9, Immature Gran % (Auto) 0.600, Neut % (Auto) 69.2, Lymph % (Auto) 17.6 L, Morrison % (Auto) 8.8, Eos % (Auto) 3.2, Baso % (Auto) 0.6, Absolute Neuts (auto) 3.2, Absolute Lymphs (auto) 0.82 L, Nucleated RBC % 0.4, Differential Comment SCANNED, Polychromasia RARE, Microcytosis RARE 08/17/20 05:40: Sodium 137, Potassium 4.7, Chloride 106, Carbon Dioxide 23.0, Anion Gap 8, BUN 115 H*, Creatinine 3.43 H, Estim Creat Clear Calc 21.02, Est GFR (MDRD) Af Amer 18 L, Est GFR (MDRD) Non-Af 15 L, BUN/Creatinine Ratio 33.5 H , Glucose 98, Calcium 8.0 L, Total Bilirubin 0.60, AST 25, ALT 18, Alkaline Phosphatase 162 H, Total Protein 6.2 L, Albumin 1.7 L, Globulin 4.5 H, Albumin/Globulin Ratio 0.4 L, TSH 5.18 H 08/17/20 05:40: Ammonia 83.0 H 08/17/20 05:40: PT 26.8 H, INR 2.5, APTT 42.6 H 08/17/20 05:40: Hemoglobin A1c 5.9 H 08/17/20 05:40: Free T4 0.83, Free T3 pg/dL 0.8 L 08/17/20 06:37: POC Glucose 101 Current Medications Acetaminophen (Acetaminophen 325 Mg Tablet) 650 mg PO Q6H PRN PRN PRN Reason: Pain Score 1-10/Temp > 100.7 F Al Hydroxide/Mg Hydroxide (Mag Hydrox/Al Hydrox/Simeth 30 Ml Udc) 30 ml PO Q6H PRN PRN PRN Reason: Gastric Burning Albuterol Sulfate (Albuterol 2.5 Mg/3 Ml Vial.Neb.) 2.5 mg INHALATION Q2H PRN PRN PRN Reason: SHORTNESS OF BREATH Albuterol/Ipratropium (Ipratropium/Albuterol Sulfate 3 Ml Ampul.Neb) 3 ml INHALATION Q4H.RT [facility] [place] Last Admin: 08/16/20 23:20 Dose: 3 ml Documented by: Allopurinol (Allopurinol 300 Mg Tablet) 300 mg PO DAILY [facility] [place] Last Admin: 08/16/20 08:57 Dose: 300 mg Documented by: Aspirin (Aspirin 81 Mg Tab.Chew) 81 mg PO DAILY@0800 [facility] [place] Last Admin: 08/15/20 10:06 Dose: 81 mg Documented by: Atorvastatin Calcium (Atorvastatin Calcium 40 Mg Tablet) 40 mg PO QHS [facility] [place] Last Admin: 08/16/20 21:19 Dose: 40 mg Documented by: Bupropion HCl (Bupropion (Xl) 150 Mg Tablet.Xl) 150 mg PO DAILY [facility] [place] Last Admin: 08/16/20 08:57 Dose: 150 mg Documented by: Calamine/Phenol (Menthol/Lanolin/Calamine/Znox 113 Gm Tube) 1 applic TOPICAL BI D [facility] [place]; Protocol Last Admin: 08/16/20 21:16 Dose: 1 applicatio Documented by: Docusate Sodium (Docusate Sodium 100 Mg Capsule) 200 mg PO BID [facility] [place] Last Admin: 08/16/20 21:19 Dose: 200 mg Documented by: Furosemide (Furosemide 40 Mg/4 Ml Vial) 40 mg IV BID@1000,1800 [facility] [place] Last Admin: 08/16/20 17:44 Dose: 40 mg Documented by: Sodium Chloride () 250 mls @ 15 mls/hr IV .[id number] PRN PRN Reason: Additional IVPB Infusion Last Infusion: 08/10/20 12:43 Dose: Infused Documented by: Pantoprazole Sodium 40 mg/ (Sodium Chloride) 110 mls @ 330 mls/hr IV Q12 [facility] [place] Last Infusion: 08/16/20 21:36 Dose: Infused Documented by: Insulin Human Lispro (Insulin Lispro 100 Unit/Ml Insuln.Pen) 0 unit SC ACHS [facility] [place]; Protocol Last Admin: 08/17/20 06:41 Dose: Not Given Documented by: Lactulose (Lactulose 20 Gm/30 Ml Udc) 30 gm PO BID [facility] [place] Last Admin: 08/16/20 21:18 Dose: 30 gm Documented by: Midodrine (Midodrine Hcl 5 Mg Tablet) 10 mg PO TID [facility] [place] Last Admin: 08/17/20 06:09 Dose: 10 mg Documented by: Nystatin (Nystatin Powder 15gm Bottle) 1 applic TOPICAL BID [facility] [place]; Protocol Last Admin: 08/16/20 21:16 Dose: 1 applicatio Documented by: Ondansetron HCl (Ondansetron 4 Mg/2 Ml Vial) 4 mg IV Q8H PRN PRN PRN Reason: NAUSEA Last Admin: 08/11/20 13:13 Dose: 4 mg Documented by: Polyethylene Glycol (Polyethylene Glycol 3350 17 Gm Packet) 17 gm PO DAILY [facility] [place] Last Admin: 08/16/20 10:01 Dose: Not Given Documented by: Rifaximin (Rifaximin 550 Mg Tablet) 550 mg PO BID [facility] [place] Last Admin: 08/16/20 21:19 Dose: 550 mg Documented by: Sodium Chloride (0.9% Saline Lock 10 Ml Syringe) 10 - 40 ml IV UD PRN PRN Reason: SALINE FLUSH Last Admin: 08/16/20 17:46 Dose: 10 ml Documented by: STROKE Vital Signs/Narrative: Vital Signs Temp Pulse Resp BP Pulse Ox 08/17/20 06:54 97 08/17/20 06:41 98.6 F 71 18 112/59 L 96 Medical Necessity - Tobacco Use Smoking Status: Former smoker Assessment/Plan All Active Problems (Last Reviewed 08/09/20 @ 19:[address] Aston Casiano, DO) MAX (acute kidney injury) (Acute) Healthcare-associated pneumonia (Acute) Hyperkalemia (Acute) Acute respiratory failure with hypoxia (Acute) Infestation by bed bug (Resolved) 1. Hypoxic respiratory failure secondary to pneumonia and acute on chronic systolic congestive heart failure-she completed Vanco and aztreonam for pneumonia and is now off antibiotics. Continue IV Lasix. Pulmonology following. Chest x-ray on 1114 demonstrated mild congestive heart failure. -She remains stable on 4lpm O2 with no dyspnea. 2. Hypotension-continue midodrine, off home blood pressure medications. Hypotension has markedly improved, however I suspect that if she starts dialysis this will be an ongoing issue. 3. Acute kidney injury-on CKD 4- the patient this morning very clearly stated that she does not want dialysis, and later told the attorney that she does want dialysis. I do not feel that her mental status is appropriate or that I can confidently say that she understands the ramifications and risks of her decision making as she has been severely encephalopathic as recent as yesterday. During her interview today, despite being able to answer questions she falls asleep mid conversation and stares off at times, requiring re orientation to the conversation and re questioning which calls into question her ability to make her own decisions. -As her urine output is improving and her renal studies have plateaued, she may not require dialysis. -Discussed with Dr. Carroll and Dr. Ceron. 4. Liver cirrhosis with abnormal LFTs and elevated ammonia,- mild improvement in ammonia, BMs increasing with increased lactulose. 5. Acute metabolic encephalopathy secondary to combination of the above. Somewhat improved, however still with poor mentation: see #3. TSH mildly high, t4 low normal, t3 low - start low dose synthroid. 6. History of CAD with prior stents-continue aspirin and statin. Off carvedilol for hypotension-see #2 7. Acute urinary tract infection-completed therapy for this. Culture with Klebsiella. 8. acute on chronic blood loss anemia secondary to acute GI bleed-Coumadin and aspirin held. Hemoglobin stable. Continue IV PPI. Hemoccult was positive. Hemoglobin is stable at this time. 9. Chronic atrial fibrillation-rate is controlled, off warfarin for #8. 10. Thrombocytopenia-unclear etiology, suspect due to cirrhosis. Avoid heparin products. 11. Mild hypothyroidism - see #5. DVT prophylaxis: CDs. Discharge planning: Renal function stabilized. Monitor overnight. This patient was seen by Arya Weaver PA-C under the supervision of Doctor Triston. <Cristi Goldstein - Last Filed: 08/17/20 12:31> Vitals/I&O's: Vital Signs Temp Pulse Resp BP Pulse Ox 98.7 F 82 18 118/61 96 08/17/20 10:47 08/17/20 10:47 08/17/20 10:47 08/17/20 10:47 08/17/20 10:47 Oxygen Flow Rate (L/min) 4 Oxygen Delivery Method Nasal Cannula Weight: 175.9 kg Body Mass Index (BMI) 51.2 Finger Stick Blood Glucose 77 Intake and Output for Last 24 Hours 08/15/20 08/16/20 08/17/20 23:59 23:59 23:59 Intake Total 770 / 820 370 / 370 110 / 110 Output Total 850 / 1050 1200 / 1200 280 / 280 Balance -80 / -230 -830 / -830 -170 / -170 Microbiology Past 72 Hours 08/17/20 01:07 Sputum, Expectorated/Coughed Gram Stain - Final 08/09/20 12:30 Blood Culture (Wb) - Anticubital Right Blood Culture - Final No growth in 5 days. 08/09/20 12:30 Blood Culture (Wb) - Left Forearm Blood Culture - Final No growth in 5 days. Laboratory Results 08/16/20 14:45: PT 25.1 H, INR 2.3 08/16/20 16:24: POC Glucose 137 H 08/16/20 21:04: POC Glucose 106 08/17/20 05:40: WBC 4.7, RBC 2.82 L, Hgb 8.0 L, Hct 27.5 L, MCV 97.5, MCH 28.4, MCHC 29.1 L, RDW Std Deviation 72.5 H, RDW Coeff of Yoandy 20.8 H, Plt Count 113 L, MPV 10.9, Immature Gran % (Auto) 0.600, Neut % (Auto) 69.2, Lymph % (Auto) 17.6 L, Morrison % (Auto) 8.8, Eos % (Auto) 3.2, Baso % (Auto) 0.6, Absolute Neuts (auto) 3.2, Absolute Lymphs (auto) 0.82 L, Nucleated RBC % 0.4, Differential Comment SCANNED, Polychromasia RARE, Microcytosis RARE 08/17/20 05:40: Sodium 137, Potassium 4.7, Chloride 106, Carbon Dioxide 23.0, Anion Gap 8, BUN 115 H*, Creatinine 3.43 H, Estim Creat Clear Calc 21.02, Est GFR (MDRD) Af Amer 18 L, Est GFR (MDRD) Non-Af 15 L, BUN/Creatinine Ratio 33.5 H , Glucose 98, Calcium 8.0 L, Total Bilirubin 0.60, AST 25, ALT 18, Alkaline P hosphatase 162 H, Total Protein 6.2 L, Albumin 1.7 L, Globulin 4.5 H, Albumin/Globulin Ratio 0.4 L, TSH 5.18 H 08/17/20 05:40: Ammonia 83.0 H 08/17/20 05:40: PT 26.8 H, INR 2.5, APTT 42.6 H 08/17/20 05:40: Hemoglobin A1c 5.9 H 08/17/20 05:40: Free T4 0.83, Free T3 pg/dL 0.8 L 08/17/20 06:37: POC Glucose 101 08/17/20 11:29: POC Glucose 113 H Current Medications Acetaminophen (Acetaminophen 325 Mg Tablet) 650 mg PO Q6H PRN PRN PRN Reason: Pain Score 1-10/Temp > 100.7 F Al Hydroxide/Mg Hydroxide (Mag Hydrox/Al Hydrox/Simeth 30 Ml Udc) 30 ml PO Q6H PRN PRN PRN Reason: Gastric Burning Albuterol Sulfate (Albuterol 2.5 Mg/3 Ml Vial.Neb.) 2.5 mg INHALATION Q2H PRN PRN PRN Reason: SHORTNESS OF BREATH Albuterol/Ipratropium (Ipratropium/Albuterol Sulfate 3 Ml Ampul.Neb) 3 ml INHALATION Q4H.RT [facility] Last Admin: 08/16/20 23:20 Dose: 3 ml Documented by: Allopurinol (Allopurinol 300 Mg Tablet) 300 mg PO DAILY [facility] Last Admin: 08/17/20 10:51 Dose: 300 mg Documented by: Aspirin (Aspirin 81 Mg Tab.Chew) 81 mg PO DAILY@0800 [facility] [place] Last Admin: 08/15/20 10:06 Dose: 81 mg Documented by: Atorvastatin Calcium (Atorvastatin Calcium 40 Mg Tablet) 40 mg PO QHS [facility] [place] Last Admin: 08/16/20 21:19 Dose: 40 mg Documented by: Bupropion HCl (Bupropion (Xl) 150 Mg Tablet.Xl) 150 mg PO DAILY [facility] [place] Last Admin: 08/17/20 10:51 Dose: 150 mg Documented by: Calamine/Phenol (Menthol/Lanolin/Calamine/Znox 113 Gm Tube) 1 applic TOPICAL BID [facility] [place]; Protocol Last Admin: 08/17/20 10:54 Dose: 1 applicatio Documented by: Docusate Sodium (Docusate Sodium 100 Mg Capsule) 200 mg PO BID [facility] [place] Last Admin: 08/17/20 10:51 Dose: 200 mg Documented by: Furosemide (Furosemide 40 Mg/4 Ml Vial) 40 mg IV BID@1000,1800 [facility] [place] Last Admin: 08/17/20 10:54 Dose: 40 mg Documented by: Sodium Chloride () 250 mls @ 15 mls/hr IV .[id number] PRN PRN Reason: Additional IVPB Infusion Last Infusion: 08/10/20 12:43 Dose: Infused Documented by: Pantoprazole Sodium 40 mg/ (Sodium Chloride) 110 mls @ 330 mls/hr IV Q12 [facility] [place] Last Infusion: 08/17/20 11:32 Dose: Infused Documented by: Insulin Human Lispro (Insulin Lispro 100 Unit/Ml Insuln.Pen) 0 unit SC [facility]; Protocol Last Admin: 08/17/20 11:32 Dose: Not Given Documented by: Lactulose (Lactulose 20 Gm/30 Ml Udc) 30 gm PO BID [facility] [place] Last Admin: 08/17/20 10:51 Dose: 30 gm Documented by: Levothyroxine Sodium (Levothyroxine 75 Mcg Tablet) 75 mcg PO DAILY@0600 [facility] [place] Last Admin: 08/17/20 11:06 Dose: 75 mcg Documented by: Midodrine (Midodrine Hcl 5 Mg Tablet) 10 mg PO TID [facility] [place] Last Admin: 08/17/20 06:09 Dose: 10 mg Documented by: Nystatin (Nystatin Powder 15gm Bottle) 1 applic TOPICAL BID [facility] [place]; Protocol Last Admin: 08/17/20 10:54 Dose: 1 applicatio Documented by: Ondansetron HCl (Ondansetron 4 Mg/2 Ml Vial) 4 mg IV Q8H PRN PRN PRN Reason: NAUSEA Last Admin: 08/11/20 13:13 Dose: 4 mg Documented by: Polyethylene Glycol (Polyethylene Glycol 3350 17 Gm Packet) 17 gm PO DAILY [facility] Last Admin: 08/17/20 10:57 Dose: 17 gm Documented by: Rifaximin (Rifaximin 550 Mg Tablet) 550 mg PO BID [facility] Last Admin: 08/17/20 10:51 Dose: 550 mg Documented by: Sodium Chloride (0.9% Saline Lock 10 Ml Syringe) 10 - 40 ml IV UD PRN PRN Reason: SALINE FLUSH Last Admin: 08/17/20 10:54 Dose: 20 ml Documented by: STROKE Vital Signs/Narrative: Vital Signs Temp Pulse Resp BP Pulse Ox 08/17/20 10:47 98.7 F 82 18 118/61 96 Assessment/Plan This patient was seen in conjunction with Arya Weaver PA-C . I have inde pendently interviewed and examined the patient and reviewed pertinent historical, laboratory, and other data. Please refer to Arya Weaver PA-C note for details of this patient's presentation, findings, and recommendations. I have reviewed Arya Weaver PA-C note and concur with documented findings. In brief, patient is a 60-year-old lady with multiple comorbidities admitted with increasing confusion and assessment of acute hypoxic respiratory failure secondary to combination of pneumonia CHF made admitted to monitored bed for further management 08/17/2020; patient seen remains significantly lethargic patient is at the point where she will require dialysis however patient unable to consent to dialysis catheter placement Physical Examination: GENERAL: Lethargic HEENT: Atraumatic; NECK; supple, normal thyroid, RESPIRATORY: Diminished to auscultation CARDIOVASCULAR: Regular S1 S2, GI: soft, normoactive bowel sounds, : No Renal angle tenderness; EXTREMITIES: Right AKA MUSCULOSKELETAL: no muscle waisting NEURO: A no lateralizing signs. Assessment: 1. Acute hypoxic respiratory failure 2. Pneumonia with suspected multidrug resistant organism 3. Acute congestive heart failure with reduced ejection fraction 4. Acute metabolic encephalopathy 5. Hypertension 6. Chronic kidney disease stage III/IV with worsening azotemia with plans for initiation of dialysis 7. Cirrhosis of the liver 8. Diabetes mellitus type 2 with complications including diabetic nephropathy 9. Paroxysmal A. fib 10. Essential hypertension blood pressure currently on hold in view of hyp otension 11. Thrombocytopenia secondary to chronic liver disease 12. Acute kidney injury superimposed on chronic kidney disease stage IV 13. Dyslipidemia 14. Gout 15. GERD 16. Conduction system disorder status post pacemaker placement 17. Status post right AKA 18. Depression with anxiety 19. Previous history of DVT 20. Physical deconditioning Recommendations: 1. I have discussed the results of my overview and impressions with the patient 2. Options for management were reviewed Inpatient E&M: 66569 Subs Hosp L2
[2020-08-17] MEDS: Lactulose 20 GM/30 ML UDC 30 GM PO ×2 (10:51→22:37)
[2020-08-17] MEDS: Docusate Sodium 100 MG Capsule 200 MG PO ×2 (10:51→22:38)
[2020-08-17] MEDS: Allopurinol 300 MG Tablet PO (10:51)
[2020-08-17] MEDS: rifAXIMin 550 MG Tablet PO ×2 (10:51→22:38)
[2020-08-17] MEDS: buPROPion (XL) 150 MG TABLET.XL PO (10:51)
--- NOTE | 2020-08-17 10:52 | CASEMGMT ---
Patient's mental status waxes and wanes. She did appear to be more alert today. NYDIA met with patient, introduced self and role at [facility]. SW did have to wake patient up, but once she was up she did stay awake for SW. NYDIA explained to her that she does not have a Healthcare Power of [employer]. SW asked her if she is not able to make medical decisions does she know who she would want. Without hesitation she said Debo Mac. SW asked her, so if you are not able to make medical decisions for yourself you want Debo Mac? Patient responded, Yes ma'am. SW asked if she wanted to do a Healthcare Power of [employer] Operations Manager and she said yes. NYDIA listed Debo as her POA and SW asked if she wanted any alternates and she declined to list any alternates. NYDIA then had RN CM come in to witness patient sign. Patient started to cry and hesitated on signing. We finally were able to get her to admit she was overwhelmed. NYDIA told her to not worry about signing the papers right now and SW can come back another time. NYDIA did verify again if she cannot make medical decisions for herself she would like Debo [place] and she again said, Yes. Debo's information is listed on patient's face sheet and NYDIA has corrected the number [phone]. NYDIA will continue to follow. Ly CHUNG MSW
[2020-08-17] MEDS: Furosemide 40 MG/4 ML Vial IV ×2 (10:54→17:23)
[2020-08-17] MEDS: Menthol/Lanolin/Calamine/Znox 113 GM Tube 1 APPLIC TOPICAL ×2 (10:54→22:37)
[2020-08-17] MEDS: Nystatin Powder 15gm Bottle 1 APPLIC TOPICAL ×2 (10:54→22:38)
[2020-08-17] MEDS: 0.9% Saline Lock 10 ML Syringe IV ×3 (10:54→22:40)
[2020-08-17] MEDS: Polyethylene Glycol 3350 17 GM PACKET PO (10:57)
[2020-08-17] MEDS: Levothyroxine 75 MCG Tablet PO (11:06)
[2020-08-17 11:41] LABS: Bedside Glucose 113 mg/dL (70-110)
--- NOTE | 2020-08-17 12:05 | PCM.PN.BLA ---
Progress Note Patient with multiple organ system disease. Evidence of cardiac dysfunction, severe pulmonary hypertension, congestive heart failure, pulmonary disease with pneumonia, cirrhosis with elevated ammonia level, metabolic encephalopathy, acute on chronic renal failure I am hopeful that ongoing discussions with her continue to elucidate the severity of her disease and quality of life and life duration expectations with increasing medical interventions I concur that informed consent continues to not be possible at this time. If the patient is able to be stabilized for the performance of informed consent and if she chooses to have dialysis catheters inserted then she will need to be held n.p.o. after midnight prior to that procedure. Will follow with you. At this time it is not clear to me that this procedure is in her best interest. STROKE Vital Signs/Narrative: Vital Signs Temp Pulse Resp BP Pulse Ox 08/17/20 10:47 98.7 F 82 18 118/61 96
[2020-08-17] MEDS: Ipratropium/Albuterol Sulfate 3 ML AMPUL.NEB INHALATION (19:45)
[2020-08-17] MEDS: Atorvastatin Calcium 40 MG Tablet PO (22:38)
[2020-08-18] VITALS (13 sets, daily range): BP systolic 117–134; BP diastolic 56–69; PULSE 63–81; RESP 18–20; TEMP 36.2–36.7; O2SAT 93–98; BMI 51.1
[2020-08-18] MEDS: Ipratropium/Albuterol Sulfate 3 ML AMPUL.NEB INHALATION ×3 (00:05→19:22)
--- NOTE | 2020-08-18 05:30 | NURSING ---
incontinent of stool when cleaning pt 2 undigested pills came out in stool
[2020-08-18 05:58] LABS: Absolute Lymphocyte Count 0.97 X10^3/uL (0.83-4.51); Absolute Neutrophil Count 3.6 X10^3/uL (2.0-7.7); Basophil# 0.05 X10^3/uL; Eosinophil# 0.12 X10^3/uL; Eosinophils% 2.3 % (0-5); Hematocrit 30.7 % (37-47); Hemoglobin 8.9 g/dL (12.0-15.0); Lymphocyte # 0.97 X10^3/ul (4.0); Lymphocyte % 18.9 % (19-41); Mean Corpuscular Hgb 28.3 pg (27.0-32.0); Mean Corpuscular Volume 97.8 fL (81-99); Mean Platelet Vol. 10.7 fl (6.2-12.0); Monocyte# 0.39 X10^3/uL; Monocyte% 7.6 % (0-10); NRBC Flagged by Analyzer 0 % (0-5); Neutrophil # 3.59 X10^3/uL (2.7-7.7); Neutrophil % 69.8 % (47-70); POSITIVE MORPHOLOGY YES; Platelet Count 126 K/mm3 (150-450); RBC Distribution Width CV 21.2 % (11.6-14.6); RBC Distribution Width SD 72.8 fl (35.1-43.9); Red Blood Count 3.14 M/mm3 (4.2-5.4); White Blood Count 5.1 K/mm3 (4.4-11.0)
[2020-08-18 05:59] LABS: Differential Indicated SCAN CRITERIA MET
[2020-08-18 06:05] LABS: International Normalized Ratio 2.6; Prothrombin Time (Protime)PT. 27.5 SECONDS (11.7-14.9)
[2020-08-18 06:30] LABS: Differential Comment SCANNED
[2020-08-18 06:31] LABS: Hypochromasia RARE; Microcytosis RARE; Ovalocyte RARE; Polychromasia RARE
[2020-08-18 06:32] LABS: ALB/GLOB Ratio 0.4 RATIO (0.9-2.4); AST(SGOT) 23 U/L (15-37); Alanine Aminotransfer ALT/SGPT 15 U/L (13-56); Albumin, Serum 1.8 g/dL (3.2-5.0); Alkaline Phosphatase 163 U/L (45-117); Anion Gap 9 (5-15); BUN 115 mg/dL (7-18); BUN/Creat Ratio 33.6 RATIO (10-20); Calcium,Total 8.5 mg/dL (8.5-10.1); Chloride 107 mmol/L (98-107); Creatinine, Serum 3.42 mg/dL (0.55-1.02); EST Glomerular Filtration Rate 15 mL/min (>60); Est Glom Filt Rate - Afr Amer 18 mL/min (>60); Estimated Creatinine Clearance 21.08 ml/min; Globulin 4.9 g/dL (2.2-4.2); Glucose 103 mg/dL (74-106); Potassium 4.5 mmol/L (3.5-5.1); Protein, Total 6.7 g/dL (6.4-8.2); Sodium Level 138 mmol/L (136-145)
[2020-08-18] MEDS: 0.9% Saline Lock 10 ML Syringe IV ×2 (09:32→17:16)
[2020-08-18] MEDS: Menthol/Lanolin/Calamine/Znox 113 GM Tube 1 APPLIC TOPICAL ×2 (09:32→20:55)
[2020-08-18] MEDS: Furosemide 40 MG/4 ML Vial IV ×2 (09:32→17:16)
[2020-08-18] MEDS: Nystatin Powder 15gm Bottle 1 APPLIC TOPICAL ×2 (09:32→20:53)
--- NOTE | 2020-08-18 10:18 | PCM.PN.BLA ---
Progress Note Patient was placed on the surgery schedule today for tunneled dialysis catheters. She is unable to consent for herself. It appears a friend of the patient, Debo Mac was contacted due to patient wanting to make her POA according to case management. Currently there are no signed papers or documents stating this. Unfortunately, patient is unable to consent for herself and continues to wax and wane. At this time we will hold off on any surgical procedure. STROKE Vital Signs/Narrative: Vital Signs Temp Pulse Resp BP Pulse Ox 08/18/20 09:30 97.4 F L 73 18 118/64 93 08/18/20 07:50 71 19 H 08/18/20 07:49 95 Inpatient E&M: 02828 Subs Hosp L1
--- NOTE | 2020-08-18 10:50 | PCM.PN.REN ---
Patient Problems: Active and Suspected Problems (Last Reviewed 08/09/20 @ 19:[address] Aston Casiano, DO) MAX (acute kidney injury) (Acute) Healthcare-associated pneumonia (Acute) Hyperkalemia (Acute) Acute respiratory failure with hypoxia (Acute) Subjective: Patient is more confused today. ammonia is higher today. crying cannot tell what bothers her HD access was not done due top lack of line placement consenting Cannot for ROS - Physical Exam Vitals/I&O's: Vital Signs Temp Pulse Resp BP Pulse Ox 97.4 F L 73 18 118/64 93 08/18/20 09:30 08/18/20 09:30 08/18/20 09:30 08/18/20 09:30 08/18/20 09:30 Oxygen Flow Rate (L/min) 3 Oxygen Delivery Method Nasal Cannula Weight: 175.9 kg Body Mass Index (BMI) 51.2 Finger Stick Blood Glucose 77 Intake and Output for Last 24 Hours 08/16/20 08/17/20 08/18/20 23:59 23:59 23:59 Intake Total 370 / 370 377.5 / 377.5 110 / 110 Output Total 1200 / 1200 1255 / 1255 200 / 200 Balance -830 / -830 -877.5 / -877.5 -90 / -90 General: Confused HEENT: Atraumatic Oral: Moist Mucosa Neck: Supple, No JVD Lungs: - - decreased BS over both lungs bases Cardiovascular: Regular rate, Regular Rhythm, Normal S1, Normal S2 Abdomen: Bowel Sounds Present, Soft, Non-Distended Extremities: Edema - +3 edema of LE Musculoskeletal: No Muscle Wasting Lymphatic: No Cervical, Supraclavicular, or Inguinal Adenopathy Neurological: - - confused today not following commands Microbiology Past 72 Hours 08/17/20 01:07 Sputum, Expectorated/Coughed Gram Stain - Final 08/17/20 01:07 Sputum, Expectorated/Coughed Respiratory Culture - Preliminary Appears to be normal respiratory owen. Further studies to follow. Laboratory Results 08/17/20 11:29: POC Glucose 113 H 08/18/20 05:45: WBC 5.1, RBC 3.14 L, Hgb 8.9 L, Hct 30.7 L, MCV 97.8, MCH 28.3, MCHC 29.0 L, RDW Std Deviation 72.8 H, RDW Coeff of Yoandy 21.2 H, Plt Count 126 L, MPV 10.7, Immature Gran % (Auto) 0.400, Neut % (Auto) 69.8, Lymph % (Auto) 18.9 L, [place] % (Auto) 7.6, Eos % (Auto) 2.3, Baso % (Auto) 1.0, Absolute Neuts (auto) 3.6, Absolute Lymphs (auto) 0.97, Nucleated RBC % 0, Differential Comment SCANNED, Polychromasia RARE, Hypochromasia RARE, Microcytosis RARE, Ovalocytes RARE 08/18/20 05:45: Sodium 138, Potassium 4.5, Chloride 107, Carbon Dioxide 22.0, Anion Gap 9, BUN 115 H*, Creatinine 3.42 H, Estim Creat Clear Calc 21.08, Est GFR (MDRD) Af Amer 18 L, Est GFR (MDRD) Non-Af 15 L, BUN/Creatinine Ratio 33.6 H, Glucose 103, Calcium 8.5, Total Bilirubin 0.60, AST 23, ALT 15, Alkaline Phosphatase 163 H, Total Protein 6.7, Albumin 1.8 L, Globulin 4.9 H, Albumin/Globulin Ratio 0.4 L 08/18/20 05:45: PT 27.5 H, INR 2.6 08/18/20 05:45: Ammonia 92.0 H Current Medications Acetaminophen (Acetaminophen 325 Mg Tablet) 650 mg PO Q6H PRN PRN PRN Reason: Pain Score 1-10/Temp > 100.7 F Al Hydroxide/Mg Hydroxide (Mag Hydrox/Al Hydrox/Simeth 30 Ml Udc) 30 ml PO Q6H PRN PRN PRN Reason: Gastric Burning Albuterol Sulfate (Albuterol 2.5 Mg/3 Ml Vial.Neb.) 2.5 mg INHALATION Q2H PRN PRN PRN Reason: SHORTNESS OF BREATH Albuterol/Ipratropium (Ipratropium/Albuterol Sulfate 3 Ml Ampul.Neb) 3 ml INHALATION Q4H.RT [facility]IONEL Last Admin: 08/18/20 07:50 Dose: 3 ml Documented by: Allopurinol (Allopurinol 300 Mg Tablet) 300 mg PO DAILY [facility]ION[facility] Last Admin: 08/18/20 09:33 Dose: Not Given Documented by: Aspirin (Aspirin 81 Mg Tab.Chew) 81 mg PO DAILY@0800 [facility] Last Admin: 08/15/20 10:06 Dose: 81 mg Documented by: Atorvastatin Calcium (Atorvastatin Calcium 40 Mg Tablet) 40 mg PO QHS [facility] Last Admin: 08/17/20 22:38 Dose: 40 mg Documented by: Bupropion HCl (Bupropion (Xl) 150 Mg Tablet.Xl) 150 mg PO DAILY [facility] Last Admin: 08/18/20 09:33 Dose: Not Given Documented by: Calamine/Phenol (Menthol/Lanolin/Calamine/Znox 113 Gm Tube) 1 applic TOPICAL BID [facility]; Protocol Last Admin: 08/18/20 09:32 Dose: 1 applicatio Documented by: Docusate Sodium (Docusate Sodium 100 Mg Capsule) 200 mg PO BID [facility] Last Admin: 08/18/20 09:33 Dose: Not Given Documented by: Furosemide (Furosemide 40 Mg/4 Ml Vial) 40 mg IV BID@1000,1800 [facility] Last Admin: 08/18/20 09:32 Dose: 40 mg Documented by: Sodium Chloride () 250 mls @ 15 mls/hr IV .[id number] PRN PRN Reason: Additional IVPB Infusion Last Infusion: 08/17/20 23:30 Dose: 0 mls/hr Documented by: Pantoprazole Sodium 40 mg/ (Sodium Chloride) 110 mls @ 330 mls/hr IV Q12 [facility] Last Infusion: 08/18/20 10:30 Dose: Infused Documented by: Insulin Human Lispro (Insulin Lispro 100 Unit/Ml Insuln.Pen) 0 unit SC PRN PRN; Protocol PRN Reason: NOT SPECIFIED Lactulose (Lactulose 20 Gm/30 Ml Udc) 30 gm PO BID [facility] Last Admin: 08/18/20 09:33 Dose: Not Given Documented by: Levothyroxine Sodium (Levothyroxine 75 Mcg Tablet) 75 mcg PO DAILY@0600 [facility] Last Admin: 08/18/20 05:28 Dose: Not Given Documented by: Midodrine (Midodrine Hcl 5 Mg Tablet) 10 mg PO TID [facility] Last Admin: 08/18/20 05:28 Dose: Not Given Documented by: Nystatin (Nystatin Powder 15gm Bottle) 1 applic TOPICAL BID [facility]; Protocol Last Admin: 08/18/20 09:32 Dose: 1 applicatio Documented by: Ondansetron HCl (Ondansetron 4 Mg/2 Ml Vial) 4 mg IV Q8H PRN PRN PRN Reason: NAUSEA Last Admin: 08/11/20 13:13 Dose: 4 mg Documented by: Polyethylene Glycol (Polyethylene Glycol 3350 17 Gm Packet) 17 gm PO DAILY [facility] Last Admin: 08/18/20 09:33 Dose: Not Given Documented by: Rifaximin (Rifaximin 550 Mg Tablet) 550 mg PO BID [facility] Last Admin: 08/18/20 09:33 Dose: Not Given Documented by: Sodium Chloride (0.9% Saline Lock 10 Ml Syringe) 10 - 40 ml IV UD PRN PRN Reason: SALINE FLUSH Last Admin: 08/18/20 09:32 Dose: 10 ml Documented by: Medical Necessity - Tobacco Use Smoking Status: Former smoker Assessment/Plan All Active Problems (Last Reviewed 08/09/20 @ 19:[address] Aston Casiano, DO) MAX (acute kidney injury) (Acute) Healthcare-associated pneumonia (Acute) Hyperkalemia (Acute) Acute respiratory failure with hypoxia (Acute) Infestation by bed bug (Resolved) 1. Acute kidney injury on chronic kidney disease stage 4.Baseline SCr was around 2.5 mg/dL MAX is likely prerenal from cardiorenal syndrome. FEUrea was 14% on 08/12/20. she is fluid overloaded with BUN > 110 [facility] is indicated and this was discussed with the patient by Dr Willian jacques when she was awake and oriented. Patent was adamant about pursuing all possible measures to prolong her life even it would affect the life quality. I understand that the patient cannot sign HD access placement consent today since she is confused but if the case can be treated as emergent need of HD access placement and the consent can be signed by 2 physicians. Will discuss this with Dr. Ceron today HD session after placing HD access placement Likely she will be HD dependent for the rest of her life 2. Anemia. Hgb is 8.9 this am. Follow Hgb. Can start RUPERTO once she is on HD. 3. Hypercoagulation.INR is 2.6 this am. might need FFR prior to place tunneled cath. Will defer to Dr. Ceron 4- change in mental status fro hepatic encephalopathy and uremia continue lactulose as per the primary service. HD to remove uremic toxins when feasible
--- NOTE | 2020-08-18 12:20 | CASEMGMT ---
Addendum entered by yL Dent 08/18/20 12:21: This was communicated to Arya MONDRAGON and Jhoana patient's RN. Ly MCKOY Original Note: It was decided 2 physicians will consent to the placement of the dialysis catheter as long as they agree it is emergent. This would be done rather than getting consent from the friend. Ly MCKOY
--- NOTE | 2020-08-18 13:31 | PCM.PN.HOSP ---
<Arya Weaver - Last Filed: 08/18/20 13:31> Patient Problems: Active and Suspected Problems (Last Reviewed 08/09/20 @ 19:[address] Aston Casiano DO) MAX (acute kidney injury) (Acute) Healthcare-associated pneumonia (Acute) Hyperkalemia (Acute) Acute respiratory failure with hypoxia (Acute) Reason for Visit: Encephalopathy Subjective: Pt more lethargic today. A/Ox2. Unclear if she understands my other questions. She is frequently moaning and then falling back asleep when asked questions. Vitals/I&O's: Vital Signs Temp Pulse Resp BP Pulse Ox 97.4 F L 73 18 118/64 93 08/18/20 09:30 08/18/20 09:30 08/18/20 09:30 08/18/20 09:30 08/18/20 09:30 Oxygen Flow Rate (L/min) 3 Oxygen Delivery Method Nasal Cannula Weight: 387 lb 12.69 oz Body Mass Index (BMI) 51.1 Finger Stick Blood Glucose 77 Intake and Output for Last 24 Hours 08/16/20 08/17/20 08/18/20 23:59 23:59 23:59 Intake Total 370 / 370 377.5 / 377.5 110 / 110 Output Total 1200 / 1200 1255 / 1255 425 / 425 Balance -830 / -830 -877.5 / -877.5 -315 / -315 General: Alert, Oriented x3, Cooperative HEENT: Atraumatic, PERRLA, EOMI, Normocephalic Neck: Supple, No JVD, Negative Carotid Bruits Lungs: Clear to auscultation, Normal air movement Cardiovascular: Regular rate, No murmurs Abdomen: Bowel Sounds Present, Soft, Non Tender, Obese Extremities: No edema, Capillary Refill Less than 3 Seconds Skin: No rashes, No breakdown Musculoskeletal: No Tenderness to Palpation of Joints or Extremities, - - R AKA Neurological: Cranial nerves II-XII grossly intact Psych/Mental Status: Agitated, Restless, - - labile, crying intermittently Microbiology Past 72 Hours 08/17/20 01:07 Sputum, Expectorated/Coughed Gram Stain - Final 08/17/20 01:07 Sputum, Expectorated/Coughed Respiratory Culture - Preliminary Appears to be normal respiratory owen. Further studies to follow. Laboratory Results 08/18/20 05:45: WBC 5.1, RBC 3.14 L, Hgb 8.9 L, Hct 30.7 L, MCV 97.8, MCH 28.3, MCHC 29.0 L, RDW Std Deviation 72.8 H, RDW Coeff of Yoandy 21.2 H, Plt Count 126 L, MPV 10.7, Immature Gran % (Auto) 0.400, Neut % (Auto) 69.8, Lymph % (Auto) 18.9 L, [place] % (Auto) 7.6, Eos % (Auto) 2.3, Baso % (Auto) 1.0, Absolute Neuts (auto) 3.6, Absolute Lymphs (auto) 0.97, Nucleated RBC % 0, Differential Comment SCANNED, Polychromasia RARE, Hypochromasia RARE, Microcytosis RARE, Ovalocytes RARE 08/18/20 05:45: Sodium 138, Potassium 4.5, Chloride 107, Carbon Dioxide 22.0, Anion Gap 9, BUN 115 H*, Creatinine 3.42 H, Estim Creat Clear Calc 21.08, Est GFR (MDRD) Af Amer 18 L, Est GFR (MDRD) Non-Af 15 L, BUN/Creatinine Ratio 33.6 H, Glucose 103, Calcium 8.5, Total Bilirubin 0.60, AST 23, ALT 15, Alkaline Phosphatase 163 H, Total Protein 6.7, Albumin 1.8 L, Globulin 4.9 H, Albumin/Globulin Ratio 0.4 L 08/18/20 05:45: PT 27.5 H, INR 2.6 08/18/20 05:45: Ammonia 92.0 H Current Medications Acetaminophen (Acetaminophen 325 Mg Tablet) 650 mg PO Q6H PRN PRN PRN Reason: Pain Score 1-10/Temp > 100.7 F Al Hydroxide/Mg Hydroxide (Mag Hydrox/Al Hydrox/Simeth 30 Ml Udc) 30 ml PO Q6H PRN PRN PRN Reason: Gastric Burning Albuterol Sulfate (Albuterol 2.5 Mg/3 Ml Vial.Neb.) 2.5 mg INHALATION Q2H PRN PRN PRN Reason: SHORTNESS OF BREATH Albuterol/Ipratropium (Ipratropium/Albuterol Sulfate 3 Ml Ampul.Neb) 3 ml INHALATION Q4H.RT [facility] Last Admin: 08/18/20 07:50 Dose: 3 ml Documented by: Allopurinol (Allopurinol 300 Mg Tablet) 300 mg PO DAILY [facility] Last Admin: 08/18/20 09:33 Dose: Not Given Documented by: Aspirin (Aspirin 81 Mg Tab.Chew) 81 mg PO DAILY@0800 [facility] Last Admin: 08/15/20 10:06 Dose: 81 mg Documented by: Atorvastatin Calcium (Atorvastatin Calcium 40 Mg Tablet) 40 mg PO QHS [facility] Last Admin: 08/17/20 22:38 Dose: 40 mg Documented by: Bupropion HCl (Bupropion (Xl) 150 Mg Tablet.Xl) 150 mg PO DAILY [facility] Last Admin: 08/18/20 09:33 Dose: Not Given Documented by: Calamine/Phenol (Menthol/Lanolin/Calamine/Znox 113 Gm Tube) 1 applic TOPICAL BID [facility]; Protocol Last Admin: 08/18/20 09:32 Dose: 1 applicatio Documented by: Docusate Sodium (Docusate Sodium 100 Mg Capsule) 200 mg PO BID [facility] Last Admin: 08/18/20 09:33 Dose: Not Given Documented by: Furosemide (Furosemide 40 Mg/4 Ml Vial) 40 mg IV BID@1000,1800 [facility] Last Admin: 08/18/20 09:32 Dose: 40 mg Documented by: Sodium Chloride () 250 mls @ 15 mls/hr IV .[id number] PRN PRN Reason: Additional IVPB Infusion Last Infusion: 08/17/20 23:30 Dose: 0 mls/hr Documented by: Pantoprazole Sodium 40 mg/ (Sodium Chloride) 110 mls @ 330 mls/hr IV Q12 [facility] Last Infusion: 08/18/20 10:30 Dose: Infused Documented by: Insulin Human Lispro (Insulin Lispro 100 Unit/Ml Insuln.Pen) 0 unit SC PRN PRN; Protocol PRN Reason: NOT SPECIFIED Lactulose (Lactulose 20 Gm/30 Ml Udc) 30 gm PO BID [facility] Last Admin: 08/18/20 09:33 Dose: Not Given Documented by: Levothyroxine Sodium (Levothyroxine 75 Mcg Tablet) 75 mcg PO DAILY@0600 [facility] Last Admin: 08/18/20 05:28 Dose: Not Given Documented by: Midodrine (Midodrine Hcl 5 Mg Tablet) 10 mg PO TID [facility] Last Admin: 11/18/20 13:12 Dose: Not Given Documented by: Nystatin (Nystatin Powder 15gm Bottle) 1 applic TOPICAL BID [facility]; Protocol Last Admin: 08/18/20 09:32 Dose: 1 applicatio Documented by: Ondansetron HCl (Ondansetron 4 Mg/2 Ml Vial) 4 mg IV Q8H PRN PRN PRN Reason: NAUSEA Last Admin: 08/11/20 13:13 Dose: 4 mg Documented by: Polyethylene Glycol (Polyethylene Glycol 3350 17 Gm Packet) 17 gm PO DAILY [facility] Last Admin: 08/18/20 09:33 Dose: Not Given Documented by: Rifaximin (Rifaximin 550 Mg Tablet) 550 mg PO BID [facility] Last Admin: 08/18/20 09:33 Dose: Not Given Documented by: Sodium Chloride (0.9% Saline Lock 10 Ml Syringe) 10 - 40 ml IV UD PRN PRN Reason: SALINE FLUSH Last Admin: 08/18/20 09:32 Dose: 10 ml Documented by: Medical Necessity - Tobacco Use Smoking Status: Former smoker Assessment/Plan All Active Problems (Last Reviewed 08/09/20 @ 19:[address] Atson Casiano, DO) MAX (acute kidney injury) (Acute) Healthcare-associated pneumonia (Acute) Hyperkalemia (Acute) Acute respiratory failure with hypoxia (Acute) Infestation by bed bug (Resolved) 1. Hypoxic respiratory failure secondary to pneumonia and acute on chronic systolic congestive heart failure-she completed Vanco and aztreonam for pneumonia and is now off antibiotics. Continue IV Lasix. Pulmonology following. Chest x-ray on 1114 demonstrated mild congestive heart failure. -She remains stable on 4lpm O2 with no dyspnea. -Echo 07/07/20 With EF 25-30%, 1+ MVI, 2+ TVI, PASP 55-60 mmHg, mod to severe mitral valve stenosis. multiple other structural heart abnormalities. 2. Hypotension-continue midodrine, off home blood pressure medications. Hypotension has markedly improved, however I suspect that if she starts dialysis this will be an ongoing issue. 3. Acute kidney injury-on CKD 4- pt more confused. output has continued to improve. Labs stable. Pt unable to provide consent. social work program coordinator discussed case and the preference for consent for dialysis would be to come from two physicians agreeing that it is necessary, as opposed to the patients friend Debo who has been contacted. 4. Liver cirrhosis with abnormal LFTs and elevated ammonia - worsening - two days ago 6 bm, yesterday only 2 - increased lactulose again today. INR 2.6. 5. Acute metabolic encephalopathy secondary to combination of the above. Still poor. Ammonia worse, increase lactulose. 6. History of CAD with prior stents-continue aspirin and statin. Off carvedilol for hypotension-see #2 7. Acute urinary tract infection-completed therapy for this. Culture with Klebsiella. 8. Acute on chronic blood loss anemia secondary to acute GI bleed-Coumadin and aspirin held. Hemoglobin stable. Continue IV PPI. Hemoccult was positive. Hemoglobin is stable at this time. 9. Chronic atrial fibrillation-rate is controlled, off warfarin for #8. INR still elevated likely due to cirrhosis. 10. Thrombocytopenia-unclear etiology, suspect due to cirrhosis. Avoid heparin products. 11. Mild hypothyroidism - see #5. DVT prophylaxis: SCDs. Discharge planning: mentation is fluctuant, ammonia worse, lactulose increased. may need dialysis This patient was seen by Arya Weaver PA-C under the supervision of Doctor Triston. <Cristi Goldstein - Last Filed: 08/18/20 14:00> Vitals/I&O's: Vital Signs Temp Pulse Resp BP Pulse Ox 97.4 F L 73 18 118/64 93 08/18/20 09:30 08/18/20 09:30 08/18/20 09:30 08/18/20 09:30 08/18/20 09:30 Oxygen Flow Rate (L/min) 3 Oxygen Delivery Method Nasal Cannula Weight: 175.9 kg Body Mass Index (BMI) 51.1 Finger Stick Blood Glucose 77 Intake and Output for Last 24 Hours 08/16/20 08/17/20 08/18/20 23:59 23:59 23:59 Intake Total 370 / 370 377.5 / 377.5 110 / 110 Output Total 1200 / 1200 1255 / 1255 425 / 425 Balance -830 / -830 -877.5 / -877.5 -315 / -315 Microbiology Past 72 Hours 08/17/20 01:07 Sputum, Expectorated/Coughed Gram Stain - Final 08/17/20 01:07 Sputum, Expectorated/Coughed Respiratory Culture - Preliminary Appears to be normal respiratory owen. Further studies to follow. Laboratory Results 08/18/20 05:45: WBC 5.1, RBC 3.14 L, Hgb 8.9 L, Hct 30.7 L, MCV 97.8, MCH 28.3, MCHC 29.0 L, RDW Std Deviation 72.8 H, RDW Coeff of Yoandy 21.2 H, Plt Count 126 L, MPV 10.7, Immature Gran % (Auto) 0.400, Neut % (Auto) 69.8, Lymph % (Auto) 18.9 L, [place] % (Auto) 7.6, Eos % (Auto) 2.3, Baso % (Auto) 1.0, Absolute Neuts (auto) 3.6, Absolute Lymphs (auto) 0.97, Nucleated RBC % 0, Differential Comment SCANNED, Polychromasia RARE, Hypochromasia RARE, Microcytosis RARE, Ovalocytes RARE 08/18/20 05:45: Sodium 138, Potassium 4.5, Chloride 107, Carbon Dioxide 22.0, Anion Gap 9, BUN 115 H*, Creatinine 3.42 H, Estim Creat Clear Calc 21.08, Est GFR (MDRD) Af Amer 18 L, Est GFR (MDRD) Non-Af 15 L, BUN/Creatinine Ratio 33.6 H, Glucose 103, Calcium 8.5, Total Bilirubin 0.60, AST 23, ALT 15, Alkaline Phosphatase 163 H, Total Protein 6.7, Albumin 1.8 L, Globulin 4.9 H, Albumin/Globulin Ratio 0.4 L 08/18/20 05:45: PT 27.5 H, INR 2.6 08/18/20 05:45: Ammonia 92.0 H Current Medications Acetaminophen (Acetaminophen 325 Mg Tablet) 650 mg PO Q6H PRN PRN PRN Reason: Pain Score 1-10/Temp > 100.7 F Al Hydroxide/Mg Hydroxide (Mag Hydrox/Al Hydrox/Simeth 30 Ml Udc) 30 ml PO Q6H PRN PRN PRN Reason: Gastric Burning Albuterol Sulfate (Albuterol 2.5 Mg/3 Ml Vial.Neb.) 2.5 mg INHALATION Q2H PRN PRN PRN Reason: SHORTNESS OF BREATH Albuterol/Ipratropium (Ipratropium/Albuterol Sulfate 3 Ml Ampul.Neb) 3 ml INHALATION Q4H.RT [facility] Last Admin: 08/18/20 07:50 Dose: 3 ml Documented by: Allopurinol (Allopurinol 300 Mg Tablet) 300 mg PO DAILY [facility] Last Admin: 08/18/20 09:33 Dose: Not Given Documented by: Aspirin (Aspirin 81 Mg Tab.Chew) 81 mg PO DAILY@0800 [facility] Last Admin: 08/15/20 10:06 Dose: 81 mg Documented by: Atorvastatin Calcium (Atorvastatin Calcium 40 Mg Tablet) 40 mg PO QHS [facility] Last Admin: 08/17/20 22:38 Dose: 40 mg Documented by: Bupropion HCl (Bupropion (Xl) 150 Mg Tablet.Xl) 150 mg PO DAILY [facility] Last Admin: 08/18/20 09:33 Dose: Not Given Documented by: Calamine/Phenol (Menthol/Lanolin/Calamine/Znox 113 Gm Tube) 1 applic TOPICAL BID [facility]; Protocol Last Admin: 08/18/20 09:32 Dose: 1 applicatio Documented by: Docusate Sodium (Docusate Sodium 100 Mg Capsule) 200 mg PO BID [facility] Last Admin: 08/18/20 09:33 Dose: Not Given Documented by: Furosemide (Furosemide 40 Mg/4 Ml Vial) 40 mg IV BID@1000,1800 [facility] Last Admin: 08/18/20 09:32 Dose: 40 mg Documented by: Sodium Chloride () 250 mls @ 15 mls/hr IV .[id number] PRN PRN Reason: Additional IVPB Infusion Last Infusion: 08/17/20 23:30 Dose: 0 mls/hr Documented by: Pantoprazole Sodium 40 mg/ (Sodium Chloride) 110 mls @ 330 mls/hr IV Q12 [facility] Last Infusion: 08/18/20 10:30 Dose: Infused Documented by: Insulin Human Lispro (Insulin Lispro 100 Unit/Ml Insuln.Pen) 0 unit SC PRN PRN; Protocol PRN Reason: NOT SPECIFIED Lactulose (Lactulose 20 Gm/30 Ml Udc) 30 gm PO TID [facility] Levothyroxine Sodium (Levothyroxine 75 Mcg Tablet) 75 mcg PO DAILY@0600 [facility] Last Admin: 08/18/20 05:28 Dose: Not Given Documented by: Midodrine (Midodrine Hcl 5 Mg Tablet) 10 mg PO TID [facility] Last Admin: 08/18/20 13:12 Dose: Not Given Documented by: Nystatin (Nystatin Powder 15gm Bottle) 1 applic TOPICAL BID [facility]; Protocol Last Admin: 08/18/20 09:32 Dose: 1 applicatio Documented by: Ondansetron HCl (Ondansetron 4 Mg/2 Ml Vial) 4 mg IV Q8H PRN PRN PRN Reason: NAUSEA Last Admin: 08/11/20 13:13 Dose: 4 mg Documented by: Polyethylene Glycol (Polyethylene Glycol 3350 17 Gm Packet) 17 gm PO DAILY [facility] Last Admin: 08/18/20 09:33 Dose: Not Given Documented by: Rifaximin (Rifaximin 550 Mg Tablet) 550 mg PO BID [facility] Last Admin: 08/18/20 09:33 Dose: Not Given Documented by: Sodium Chloride (0.9% Saline Lock 10 Ml Syringe) 10 - 40 ml IV UD PRN PRN Reason: SALINE FLUSH Last Admin: 08/18/20 09:32 Dose: 10 ml Documented by: Assessment/Plan This patient was seen in conjunction with Ayra Weaver PA-C . I have independently interviewed and examined the patient and reviewed pertinent historical, laboratory, and other data. Please refer to Arya Weaver PA-C note for details of this patient's presentation, findings, and recommendations. I have reviewed Arya Weaver PA-C note and concur with documented findings. In brief, patient is a 60-year-old lady with multiple comorbidities admitted with increasing confusion and assessment of acute hypoxic respiratory failure secondary to combination of pneumonia CHF made admitted to monitored bed for further management 08/17/2020; patient seen remains significantly lethargic patient is at the point where she will require dialysis however patient unable to consent to dialysis catheter placement 10/18/2019: Patient seen with no significant change in her azotemia. Dialysis catheter placement placed on hold in view of inability to obtain consent. Physical Examination: GENERAL: Lethargic HEENT: Atraumatic; NECK; supple, normal thyroid, RESPIRATORY: Diminished to auscultation CARDIOVASCULAR: Regular S1 S2, GI: soft, normoactive bowel sounds, : No Renal angle tenderness; EXTREMITIES: Right AKA MUSCULOSKELETAL: no muscle waisting NEURO: A no lateralizing signs. Assessment: 1. Acute hypoxic respiratory failure 2. Pneumonia with suspected multidrug resistant organism 3. Acute congestive heart failure with reduced ejection fraction 4. Acute metabolic encephalopathy 5. Hypertension 6. Chronic kidney disease stage III/IV with worsening azotemia with plans for initiation of dialysis 7. Cirrhosis of the liver 8. Diabetes mellitus type 2 with complications including diabetic nephropathy 9. Paroxysmal A. fib 10. Essential hypertension blood pressure currently on hold in view of hypotension 11. Thrombocytopenia secondary to chronic liver disease 12. Acute kidney injury superimposed on chronic kidney disease stage IV 13. Dyslipidemia 14. Gout 15. GERD 16. Conduction system disorder status post pacemaker placement 17. Status post right AKA 18. Depression with anxiety 19. Previous history of DVT 20. Physical deconditioning Recommendations: 1. I have discussed the results of my overview and impressions with the patient 2. Options for management were reviewed Inpatient E&M: 58671 Subs Hosp L2
--- NOTE | 2020-08-18 13:42 | CASEMGMT ---
[facility] faxed updates to Susana with [employer]
--- NOTE | 2020-08-18 15:03 | PCM.PN.BLA ---
Progress Note With patient worsening azotemia and her encephalopathy emergent dialysis is medically necessary. Patient has however not been able to consent in view of her worsening encephalopathy resulting in delay in initiating dialysis. It is prudent to proceed with obtaining a dialysis catheter to manage patient encephalopathy. I am therefore consenting in conjunction with Dr. Carroll with nephrology to proceed with obtaining dialysis catheter for initiation of dialysis
--- NOTE | 2020-08-18 15:45 | PCM.PN.BLA ---
Progress Note I have not been able to obtain informed consent from this patient. I am told that because her general condition is deteriorating that Dr. Carroll and Dr Goldstein feel that this is an emergency procedure. They request that I proceed at their direction. Clearly based upon this patient's multiorgan system disease and poor quality of life this represents a high risk intervention. I will provide the surgical procedure that is requested although I am not personally able to assess how this will impact her quality of life.
--- NOTE | 2020-08-18 17:16 | PCM.PN.BLA ---
Progress Note I have spoken with Drs. Goldstein and Glen. I note that the patient has an elevated INR and a request has been made for the patient receive FFP. Due to the notification and timing of that it would had led to a after hours tunnel dialysis catheter procedure tonight. In deference to that the patient will be scheduled for tomorrow approximately 1 PM. She will be held n.p.o. after midnight and FFP will be administered on appropriate timing prior to her planned surgery time. This is in agreement with those involved with her care. Thor Ceron M.D., F.A.C.S. STROKE Vital Signs/Narrative: Vital Signs Temp Pulse Resp BP Pulse Ox 08/18/20 15:30 97.5 F L 79 18 131/56 H 98
[2020-08-18] MEDS: Atorvastatin Calcium 40 MG Tablet PO (20:54)
[2020-08-18] MEDS: rifAXIMin 550 MG Tablet PO (20:54)
[2020-08-18] MEDS: Midodrine HCl 5 MG Tablet 10 MG PO (20:54)
[2020-08-18] MEDS: Acetaminophen 325 MG Tablet 650 MG PO (22:31)
[2020-08-19] VITALS (14 sets, daily range): BP systolic 78–144; BP diastolic 48–74; PULSE 74–103; RESP 14–20; TEMP 36.4–36.7; O2SAT 92–97; BMI 51.1
[2020-08-19 05:17] LABS: Absolute Lymphocyte Count 0.86 X10^3/uL (0.83-4.51); Absolute Neutrophil Count 3.6 X10^3/uL (2.0-7.7); Basophil# 0.04 X10^3/uL; Basophil% 0.8 % (0-1); Eosinophil# 0.14 X10^3/uL; Eosinophils% 2.8 % (0-5); Hematocrit 30.2 % (37-47); Hemoglobin 8.8 g/dL (12.0-15.0); Lymphocyte # 0.86 X10^3/ul (4.0); Lymphocyte % 17.2 % (19-41); Mean Corp Hgb Conc 29.1 g/dL (32-36); Mean Corpuscular Hgb 28.8 pg (27.0-32.0); Mean Corpuscular Volume 98.7 fL (81-99); Mean Platelet Vol. 10.6 fl (6.2-12.0); Monocyte# 0.36 X10^3/uL; Monocyte% 7.2 % (0-10); NRBC Flagged by Analyzer 0 % (0-5); Neutrophil # 3.57 X10^3/uL (2.7-7.7); Neutrophil % 71.6 % (47-70); POSITIVE MORPHOLOGY YES; Platelet Count 128 K/mm3 (150-450); RBC Distribution Width CV 21.7 % (11.6-14.6); RBC Distribution Width SD 73.9 fl (35.1-43.9); Red Blood Count 3.06 M/mm3 (4.2-5.4)
[2020-08-19 05:31] LABS: International Normalized Ratio 2.5; Prothrombin Time (Protime)PT. 26.5 SECONDS (11.7-14.9)
[2020-08-19 05:53] LABS: ALB/GLOB Ratio 0.4 RATIO (0.9-2.4); AST(SGOT) 22 U/L (15-37); Alanine Aminotransfer ALT/SGPT 14 U/L (13-56); Albumin, Serum 1.9 g/dL (3.2-5.0); Alkaline Phosphatase 149 U/L (45-117); Anion Gap 9 (5-15); BUN 117 mg/dL (7-18); BUN/Creat Ratio 35.9 RATIO (10-20); Calcium,Total 8.5 mg/dL (8.5-10.1); Chloride 109 mmol/L (98-107); Creatinine, Serum 3.26 mg/dL (0.55-1.02); EST Glomerular Filtration Rate 15 mL/min (>60); Est Glom Filt Rate - Afr Amer 19 mL/min (>60); Estimated Creatinine Clearance 22.12 ml/min; Glucose 104 mg/dL (74-106); Potassium 4.3 mmol/L (3.5-5.1); Protein, Total 6.9 g/dL (6.4-8.2); Sodium Level 140 mmol/L (136-145)
[2020-08-19 06:02] LABS: Differential Indicated SCAN CRITERIA MET
[2020-08-19] MEDS: Ipratropium/Albuterol Sulfate 3 ML AMPUL.NEB INHALATION ×2 (07:06→23:08)
[2020-08-19 07:15] LABS: Differential Comment SCANNED; Hypochromasia RARE; Microcytosis RARE; Ovalocyte RARE
--- NOTE | 2020-08-19 09:28 | CASEMGMT ---
Pt scheduled to have tunnel cath placed this afternoon. OP notes and CXR to be faxed to [facility] once obtained. Per Grady at [facility], pt has a tentative chair time of TTS at 1215 at this time. Gokul STAFFORD updated at this time, voices understanding. Arnold TEJEDA CM
--- NOTE | 2020-08-19 10:15 | PCM.PN.REN ---
Patient Problems: Active and Suspected Problems (Last Reviewed 08/09/20 @ 19:[address] Aston Casiano, DO) MAX (acute kidney injury) (Acute) Healthcare-associated pneumonia (Acute) Hyperkalemia (Acute) Acute respiratory failure with hypoxia (Acute) Subjective: Patient is lethargic today. Patient did not have HD access placed yet. going to have it placed today around 1 pm INR still high at 2.5 this am cannot for ROS - Physical Exam Vitals/I&O's: Vital Signs Temp Pulse Resp BP Pulse Ox 98.1 F 77 14 139/74 H 93 08/19/20 07:53 08/19/20 07:53 08/19/20 07:53 08/19/20 07:53 08/19/20 07:53 Oxygen Flow Rate (L/min) 3 Oxygen Delivery Method Nasal Cannula Weight: 175.9 kg Body Mass Index (BMI) 51.1 Finger Stick Blood Glucose 77 Intake and Output for Last 24 Hours 08/17/20 08/18/20 08/19/20 23:59 23:59 23:59 Intake Total 377.5 / 377.5 340 / 340 Output Total 1255 / 1255 1300 / 1300 300 / 300 Balance -877.5 / -877.5 -960 / -960 -300 / -300 General: Confused HEENT: Atraumatic Neck: Supple, No JVD Lungs: Clear to auscultation, Normal air movement, No rhonchi, No wheeze Cardiovascular: Regular rate, Regular Rhythm, Normal S1 Abdomen: Bowel Sounds Present, Soft, Non Tender Extremities: Edema - +3 edema of LE Lymphatic: No Cervical, Supraclavicular, or Inguinal Adenopathy, Inguinal Adenopathy Psych/Mental Status: - - confused Microbiology Past 72 Hours 08/17/20 01:07 Sputum, Expectorated/Coughed Gram Stain - Final 08/17/20 01:07 Sputum, Expectorated/Coughed Respiratory Culture - Final Presumptive C albicans Laboratory Results 08/18/20 16:21: Blood Type A POSITIVE 08/19/20 05:10: WBC 5.0, RBC 3.06 L, Hgb 8.8 L, Hct 30.2 L, MCV 98.7, MCH 28.8, MCHC 29.1 L, RDW Std Deviation 73.9 H, RDW Coeff of Yoandy 21.7 H, Plt Count 128 L, MPV 10.6, Immature Gran % (Auto) 0.400, Neut % (Auto) 71.6 H, Lymph % (Auto) 17.2 L, [place] % (Auto) 7.2, Eos % (Auto) 2.8, Baso % (Auto) 0.8, Absolute Neuts (auto) 3.6, Absolute Lymphs (auto) 0.86, Nucleated RBC % 0, Differential Comment SCANNED, Hypochromasia RARE, Microcytosis RARE, Ovalocytes RARE 08/19/20 05:10: Sodium 140, Potassium 4.3, Chloride 109 H, Carbon Dioxide 22.0, Anion Gap 9, BUN 117 H*, Creatinine 3.26 H, Estim Creat Clear Calc 22.12, Est GFR (MDRD) Af Amer 19 L, Est GFR (MDRD) Non-Af 15 L, BUN/Creatinine Ratio 35.9 H, Glucose 104, Calcium 8.5, Total Bilirubin 0.70, AST 22, ALT 14, Alkaline Phosphatase 149 H, Total Protein 6.9, Albumin 1.9 L, Globulin 5.0 H, Albumin/Globulin Ratio 0.4 L 08/19/20 05:10: Ammonia 81.0 H 08/19/20 05:10: PT 26.5 H, INR 2.5 Current Medications Acetaminophen (Acetaminophen 325 Mg Tablet) 650 mg PO Q6H PRN PRN PRN Reason: Pain Score 1-10/Temp > 100.7 F Last Admin: 08/18/20 22:31 Dose: 650 mg Documented by: Al Hydroxide/Mg Hydroxide (Mag Hydrox/Al Hydrox/Simeth 30 Ml Udc) 30 ml PO Q6H PRN PRN PRN Reason: Gastric Burning Albuterol Sulfate (Albuterol 2.5 Mg/3 Ml Vial.Neb.) 2.5 mg INHALATION Q2H PRN PRN PRN Reason: SHORTNESS OF BREATH Albuterol/Ipratropium (Ipratropium/Albuterol Sulfate 3 Ml Ampul.Neb) 3 ml INHALATION Q4H.RT LIONEL Last Admin: 08/19/20 07:06 Dose: 3 ml Documented by: Allopurinol (Allopurinol 300 Mg Tablet) 300 mg PO DAILY [facility] Last Admin: 08/18/20 09:33 Dose: Not Given Documented by: Aspirin (Aspirin 81 Mg Tab.Chew) 81 mg PO DAILY@0800 [facility] Last Admin: 08/15/20 10:06 Dose: 81 mg Documented by: Atorvastatin Calcium (Atorvastatin Calcium 40 Mg Tablet) 40 mg PO QHS [facility] Last Admin: 08/18/20 20:54 Dose: 40 mg Documented by: Bupropion HCl (Bupropion (Xl) 150 Mg Tablet.Xl) 150 mg PO DAILY [facility] Last Admin: 08/18/20 09:33 Dose: Not Given Documented by: Calamine/Phenol (Menthol/Lanolin/Calamine/Znox 113 Gm Tube) 1 applic TOPICAL BID [facility]; Protocol Last Admin: 08/18/20 20:55 Dose: 1 applicatio Documented by: Docusate Sodium (Docusate Sodium 100 Mg Capsule) 200 mg PO BID [facility] Last Admin: 08/18/20 21:01 Dose: Not Given Documented by: Furosemide (Furosemide 40 Mg/4 Ml Vial) 40 mg IV BID@1000,1800 [facility] Last Admin: 08/18/20 17:16 Dose: 40 mg Documented by: Sodium Chloride () 250 mls @ 15 mls/hr IV .[id number] PRN PRN Reason: Additional IVPB Infusion Last Infusion: 08/17/20 23:30 Dose: 0 mls/hr Documented by: Pantoprazole Sodium 40 mg/ (Sodium Chloride) 110 mls @ 330 mls/hr IV Q12 [facility] Last Infusion: 08/18/20 22:50 Dose: Infused Documented by: Insulin Human Lispro (Insulin Lispro 100 Unit/Ml Insuln.Pen) 0 unit SC PRN PRN; Protocol PRN Reason: NOT SPECIFIED Lactulose (Lactulose 20 Gm/30 Ml Udc) 30 gm PO TID [facility] Last Admin: 08/19/20 05:49 Dose: Not Given Documented by: Levothyroxine Sodium (Levothyroxine 75 Mcg Tablet) 75 mcg PO DAILY@0600 [facility] Last Admin: 08/19/20 05:49 Dose: Not Given Documented by: Midodrine (Midodrine Hcl 5 Mg Tablet) 10 mg PO TID [facility] Last Admin: 08/19/20 05:49 Dose: Not Given Documented by: Nystatin (Nystatin Powder 15gm Bottle) 1 applic TOPICAL BID [facility]; Protocol Last Admin: 08/18/20 20:53 Dose: 1 applicatio Documented by: Ondansetron HCl (Ondansetron 4 Mg/2 Ml Vial) 4 mg IV Q8H PRN PRN PRN Reason: NAUSEA Last Admin: 08/11/20 13:13 Dose: 4 mg Documented by: Polyethylene Glycol (Polyethylene Glycol 3350 17 Gm Packet) 17 gm PO DAILY [facility] Last Admin: 08/18/20 09:33 Dose: Not Given Documented by: Rifaximin (Rifaximin 550 Mg Tablet) 550 mg PO BID [facility] Last Admin: 08/18/20 20:54 Dose: 550 mg Documented by: Sodium Chloride (0.9% Saline Lock 10 Ml Syringe) 10 - 40 ml IV UD PRN PRN Reason: SALINE FLUSH Last Admin: 08/18/20 17:16 Dose: 10 ml Documented by: Medical Necessity - Tobacco Use Smoking Status: Former smoker Assessment/Plan All Active Problems (Last Reviewed 08/09/20 @ 19:[address] Aston Casiano, DO) MAX (acute kidney injury) (Acute) Healthcare-associated pneumonia (Acute) Hyperkalemia (Acute) Acute respiratory failure with hypoxia (Acute) Infestation by bed bug (Resolved) 1. Acute kidney injury on chronic kidney disease stage 4.Baseline SCr was around 2.5 mg/dL MAX is likely prerenal from cardiorenal syndrome. FEUrea was 14% on 08/12/20. reviewed echocardiogram from 2017. Patient has severely reduced right ventricle function with mildly reduced left ventricle function and moderate LVH she is fluid overloaded with BUN > 110. Non oliguric. responding to lasix [employer] is indicated and this was discussed with the patient by Dr Willian farah when she was awake and oriented. Patent was adamant about pursuing all possible measures to prolong her life even it would affect the life quality. HD access placement consent was signed by me and Dr. Goldstein because the patient isn't competent and there is no POA INR is still high. Patient should receive FFP during HD access placement. I discussed this with Dr. Goldstein and he is going to arrange for this HD session after placing HD access placement Likely she will be HD dependent for the rest of her life 2. Anemia. Hgb is 8.9 this am. Follow Hgb. Can start RUPERTO once she is on HD. 3. Hypercoagulation.INR is 2.5 this am despite receiving FFP yesterday. Please see above. needs FFP unit during placing HD access Will defer to Dr. Goldstein 4- change in mental status fro hepatic encephalopathy and uremia Ammonia still high at 80 this am continue lactulose as per the primary service. HD to remove uremic toxins when feasible d/w Dr. Goldstein Please call if any question at [phone]
--- NOTE | 2020-08-19 10:24 | CASEMGMT ---
[facility]DIA spoke with Susana with [facility]. NYDIA let her know the tentative dialysis schedule for patient and that it will be a few days yet before she is ready. Ly [employer]
[2020-08-19] MEDS: Furosemide 40 MG/4 ML Vial IV (11:10)
[2020-08-19] MEDS: Menthol/Lanolin/Calamine/Znox 113 GM Tube 1 APPLIC TOPICAL ×2 (11:10→22:39)
[2020-08-19] MEDS: 0.9% Saline Lock 10 ML Syringe IV (11:11)
--- NOTE | 2020-08-19 11:27 | PCM.PROGNOTE ---
<Zuleyka Watt APPLE SORTER - Last Filed: 08/19/20 11:45> Patient Problems: Active and Suspected Problems (Last Reviewed 08/09/20 @ 19:[address] Aston Casiano DO) MAX (acute kidney injury) (Acute) Healthcare-associated pneumonia (Acute) Hyperkalemia (Acute) Acute respiratory failure with hypoxia (Acute) Subjective: Patient seen and examined. Confused this morning yelling out per nursing staff. Patient lethargic on exam. To undergo dialysis catheter placement this afternoon. - Physical Exam Vitals/I&O's: Vital Signs Temp Pulse Resp BP Pulse Ox 98.1 F 77 14 139/74 H 93 08/19/20 07:53 08/19/20 07:53 08/19/20 07:53 08/19/20 07:53 08/19/20 07:53 Oxygen Flow Rate (L/min) 3 Oxygen Delivery Method Nasal Cannula Weight: 387 lb 12.69 oz Body Mass Index (BMI) 51.1 Finger Stick Blood Glucose 77 Intake and Output for Last 24 Hours 08/17/20 08/18/20 08/19/20 23:59 23:59 23:59 Intake Total 377.5 / 377.5 340 / 340 Output Total 1255 / 1255 1300 / 1300 300 / 300 Balance -877.5 / -877.5 -960 / -960 -300 / -300 General: No apparent distress, Confused, Lethargic HEENT: Atraumatic, PERRLA, EOMI, Normocephalic Oral: Dry Mucosa Neck: Supple, No JVD, Negative Carotid Bruits Lungs: Clear to auscultation, Diminished Cardiovascular: Regular rate, No murmurs Abdomen: Bowel Sounds Present, Soft, Non Tender, Non-Distended, Obese Extremities: No clubbing, No cyanosis, Capillary Refill Less than 3 Seconds, Edema - LE Skin: No rashes, No breakdown Musculoskeletal: No Tenderness to Palpation of Joints or Extremities, - - Right merxq-dxz-biba amputation Neurological: Cranial nerves II-XII grossly intact, Neuro grossly intact Psych/Mental Status: Normal Affect, Appropriate Microbiology Past 72 Hours 08/17/20 01:07 Sputum, Expectorated/Coughed Gram Stain - Final 08/17/20 01:07 Sputum, Expectorated/Coughed Respiratory Culture - Final Presumptive C albicans Laboratory Results 08/18/20 16:21: Blood Type A POSITIVE 08/19/20 05:10: WBC 5.0, RBC 3.06 L, Hgb 8.8 L, Hct 30.2 L, MCV 98.7, MCH 28.8, MCHC 29.1 L, RDW Std Deviation 73.9 H, RDW Coeff of Yoandy 21.7 H, Plt Count 128 L, MPV 10.6, Immature Gran % (Auto) 0.400, Neut % (Auto) 71.6 H, Lymph % (Auto) 17.2 L, [place] % (Auto) 7.2, Eos % (Auto) 2.8, Baso % (Auto) 0.8, Absolute Neuts (auto) 3.6, Absolute Lymphs (auto) 0.86, Nucleated RBC % 0, Differential Comment SCANNED, Hypochromasia RARE, Microcytosis RARE, Ovalocytes RARE 08/19/20 05:10: Sodium 140, Potassium 4.3, Chloride 109 H, Carbon Dioxide 22.0, Anion Gap 9, BUN 117 H*, Creatinine 3.26 H, Estim Creat Clear Calc 22.12, Est GFR (MDRD) Af Amer 19 L, Est GFR (MDRD) Non-Af 15 L, BUN/Creatinine Ratio 35.9 H, Glucose 104, Calcium 8.5, Total Bilirubin 0.70, AST 22, ALT 14, Alkaline Phosphatase 149 H, Total Protein 6.9, Albumin 1.9 L, Globulin 5.0 H, Albumin/Globulin Ratio 0.4 L 08/19/20 05:10: Ammonia 81.0 H 08/19/20 05:10: PT 26.5 H, INR 2.5 Current Medications Acetaminophen (Acetaminophen 325 Mg Tablet) 650 mg PO Q6H PRN PRN PRN Reason: Pain Score 1-10/Temp > 100.7 F Last Admin: 08/18/20 22:31 Dose: 650 mg Documented by: Al Hydroxide/Mg Hydroxide (Mag Hydrox/Al Hydrox/Simeth 30 Ml Udc) 30 ml PO Q6H PRN PRN PRN Reason: Gastric Burning Albuterol Sulfate (Albuterol 2.5 Mg/3 Ml Vial.Neb.) 2.5 mg INHALATION Q2H PRN PRN PRN Reason: SHORTNESS OF BREATH Albuterol/Ipratropium (Ipratropium/Albuterol Sulfate 3 Ml Ampul.Neb) 3 ml INHALATION Q4H.RT [facility] Last Admin: 08/19/20 07:06 Dose: 3 ml Documented by: Allopurinol (Allopurinol 300 Mg Tablet) 300 mg PO DAILY [facility] Last Admin: 08/19/20 11:05 Dose: Not Given Documented by: Aspirin (Aspirin 81 Mg Tab.Chew) 81 mg PO DAILY@0800 [facility] Last Admin: 08/15/20 10:06 Dose: 81 mg Documented by: Atorvastatin Calcium (Atorvastatin Calcium 40 Mg Tablet) 40 mg PO QHS [facility] Last Admin: 08/18/20 20:54 Dose: 40 mg Documented by: Bupropion HCl (Bupropion (Xl) 150 Mg Tablet.Xl) 150 mg PO DAILY [facility] Last Admin: 08/19/20 11:05 Dose: Not Given Documented by: Calamine/Phenol (Menthol/Lanolin/Calamine/Znox 113 Gm Tube) 1 applic TOPICAL BID [facility]; Protocol Last Admin: 08/19/20 11:10 Dose: 1 applicatio Documented by: Docusate Sodium (Docusate Sodium 100 Mg Capsule) 200 mg PO BID [facility] Last Admin: 08/19/20 11:04 Dose: Not Given Documented by: Furosemide (Furosemide 40 Mg/4 Ml Vial) 40 mg IV BID@1000,1800 [facility] Last Admin: 08/19/20 11:10 Dose: 40 mg Documented by: Sodium Chloride () 250 mls @ 15 mls/hr IV .[id number] PRN PRN Reason: Additional IVPB Infusion Last Infusion: 08/17/20 23:30 Dose: 0 mls/hr Documented by: Pantoprazole Sodium 40 mg/ (Sodium Chloride) 110 mls @ 330 mls/hr IV Q12 [facility] Last Admin: 08/19/20 10:58 Dose: 330 mls/hr Documented by: Insulin Human Lispro (Insulin Lispro 100 Unit/Ml Insuln.Pen) 0 unit SC PRN PRN; Protocol PRN Reason: NOT SPECIFIED Lactulose (Lactulose 20 Gm/30 Ml Udc) 30 gm PO TID [facility] Last Admin: 08/19/20 05:49 Dose: Not Given Documented by: Levothyroxine Sodium (Levothyroxine 75 Mcg Tablet) 75 mcg PO DAILY@0600 [facility] Last Admin: 08/19/20 05:49 Dose: Not Given Documented by: Midodrine (Midodrine Hcl 5 Mg Tablet) 10 mg PO TID [facility] Last Admin: 08/19/20 05:49 Dose: Not Given Documented by: Nystatin (Nystatin Powder 15gm Bottle) 1 applic TOPICAL BID [facility]; Protocol Last Admin: 08/19/20 11:04 Dose: Not Given Documented by: Ondansetron HCl (Ondansetron 4 Mg/2 Ml Vial) 4 mg IV Q8H PRN PRN PRN Reason: NAUSEA Last Admin: 08/11/20 13:13 Dose: 4 mg Documented by: Polyethylene Glycol (Polyethylene Glycol 3350 17 Gm Packet) 17 gm PO DAILY [facility] Last Admin: 08/19/20 11:04 Dose: Not Given Documented by: Rifaximin (Rifaximin 550 Mg Tablet) 550 mg PO BID [facility] Last Admin: 08/19/20 11:05 Dose: Not Given Documented by: Sodium Chloride (0.9% Saline Lock 10 Ml Syringe) 10 - 40 ml IV UD PRN PRN Reason: SALINE FLUSH Last Admin: 08/19/20 11:11 Dose: 10 ml Documented by: Medical Necessity - Tobacco Use Smoking Status: Former smoker Assessment/Plan All Active Problems (Last Reviewed 08/09/20 @ 19:[address] Aston Casiano, DO) MAX (acute kidney injury) (Acute) Healthcare-associated pneumonia (Acute) Hyperkalemia (Acute) Acute respiratory failure with hypoxia (Acute) Infestation by bed bug (Resolved) 1. Acute hypoxic respiratory failure secondary to healthcare associated pneumonia and heart failure with reduced ejection fraction-on BiPAP on admission. Covid negative. Completed Azactam and Vanco. Strep for urine and Legionella negative. Albuterol DuoNeb aerosols. Continue supplement oxygen to maintain O2 sat above 90%. 2. Acute kidney injury on chronic kidney disease stage IV with hyperkalemia-hyperkalemia resolved. Nephrology following. Likely prerenal from cardiorenal syndrome. Patient to undergo hemodialysis catheter placement this afternoon. 3. Acute on chronic heart failure with reduced ejection fraction/ischemic cardiomyopathy-echo July 2020 demonstrates an EF of 25 to 30%. Continue IV Lasix. Strict I&O. Daily weight. 4. Liver cirrhosis with elevated LFTs and elevated ammonia-liver ultrasound demonstrates cirrhosis and ascites. Continue lactulose. 5. Metabolic encephalopathy-multifactorial secondary to #1/#2/#3/#4. Brain CT shows no acute abnormality. EEG demonstrates mild diffuse encephalopathy, no epileptiform discharges. 6. Acute Klebsiella UTI-completed course of antibiotics. 7. Acute on chronic blood loss anemia secondary to acute GI bleed-aspirin, Coumadin held. Hemoglobin stable. Continue IV PPI. Stool positive for occult blood. 8. Type 2 diabetes geogvlon-Hirq-Tieaq with sliding scale insulin. Continue home Lantus regimen. 9. Paroxysmal atrial fibrillation-Coumadin on hold secondary to anemia. Carvedilol held due to hypotension. 10. History of DVT-Coumadin on hold. 11. Hypertension-home carvedilol, isosorbide on hold. On midodrine for hypotension. 12. Hyperlipidemia-continue statin. 13. GERD-IV PPI. 14. Depression/anxiety-continue home bupropion regimen. 15. History of tobacco dependence- Encouraged continued cessation. 16. Status post right dtvcm-nyr-erig amputation-PT/OT. 17. Status post pacemaker placement-patient reports this was secondary to fast heart rate and atrial fibrillation. 18. Obesity-encourage diet lifestyle modifications. 19. History of left lower extremity vein grafting/bypass-continue statin. Aspirin on hold. 20. CAD with history of stents-continue statin. Aspirin, beta-jeremie, isosorbide, Lasix on hold. CODE STATUS-DNR CCA DVT prophylaxis-SCDs This patient was seen by CATHRYN Diaz under the supervision of Dr. Goldstein. <Cristi Goldstein - Last Filed: 08/19/20 13:51> - Physical Exam Vitals/I&O's: Vital Signs Temp Pulse Resp BP Pulse Ox 98.1 F 77 14 139/74 H 93 08/19/20 07:53 08/19/20 07:53 08/19/20 07:53 08/19/20 07:53 08/19/20 07:53 Oxygen Flow Rate (L/min) 3 Oxygen Delivery Method Nasal Cannula Weight: 175.9 kg Body Mass Index (BMI) 51.1 Finger Stick Blood Glucose 77 Intake and Output for Last 24 Hours 08/17/20 08/18/20 08/19/20 23:59 23:59 23:59 Intake Total 377.5 / 377.5 340 / 340 Output Total 1255 / 1255 1300 / 1300 300 / 300 Balance -877.5 / -877.5 -960 / -960 -300 / -300 Microbiology Past 72 Hours 08/17/20 01:07 Sputum, Expectorated/Coughed Gram Stain - Final 08/17/20 01:07 Sputum, Expectorated/Coughed Respiratory Culture - Final Presumptive C albicans Laboratory Results 08/18/20 16:21: Blood Type A POSITIVE 08/19/20 05:10: WBC 5.0, RBC 3.06 L, Hgb 8.8 L, Hct 30.2 L, MCV 98.7, MCH 28.8, MCHC 29.1 L, RDW Std Deviation 73.9 H, RDW Coeff of Yoandy 21.7 H, Plt Count 128 L, MPV 10.6, Immature Gran % (Auto) 0.400, Neut % (Auto) 71.6 H, Lymph % (Auto) 17.2 L, [place] % (Auto) 7.2, Eos % (Auto) 2.8, Baso % (Auto) 0.8, Absolute Neuts (auto) 3.6, Absolute Lymphs (auto) 0.86, Nucleated RBC % 0, Differential Comment SCANNED, Hypochromasia RARE, Microcytosis RARE, Ovalocytes RARE 08/19/20 05:10: Sodium 140, Potassium 4.3, Chloride 109 H, Carbon Dioxide 22.0, Anion Gap 9, BUN 117 H*, Creatinine 3.26 H, Estim Creat Clear Calc 22.12, Est GFR (MDRD) Af Amer 19 L, Est GFR (MDRD) Non-Af 15 L, BUN/Creatinine Ratio 35.9 H, Glucose 104, Calcium 8.5, Total Bilirubin 0.70, AST 22, ALT 14, Alkaline Phosphatase 149 H, Total Protein 6.9, Albumin 1.9 L, Globulin 5.0 H, Albumin/Globulin Ratio 0.4 L 08/19/20 05:10: Ammonia 81.0 H 08/19/20 05:10: PT 26.5 H, INR 2.5 Current Medications Acetaminophen (Acetaminophen 325 Mg Tablet) 650 mg PO Q6H PRN PRN PRN Reason: Pain Score 1-10/Temp > 100.7 F Last Admin: 08/18/20 22:31 Dose: 650 mg Documented by: Al Hydroxide/Mg Hydroxide (Mag Hydrox/Al Hydrox/Simeth 30 Ml Udc) 30 ml PO Q6H PRN PRN PRN Reason: Gastric Burning Albuterol Sulfate (Albuterol 2.5 Mg/3 Ml Vial.Neb.) 2.5 mg INHALATION Q2H PRN PRN PRN Reason: SHORTNESS OF BREATH Albuterol/Ipratropium (Ipratropium/Albuterol Sulfate 3 Ml Ampul.Neb) 3 ml INHALATION Q4H.RT [facility] Last Admin: 08/19/20 07:06 Dose: 3 ml Documented by: Allopurinol (Allopurinol 300 Mg Tablet) 300 mg PO DAILY [facility] Last Admin: 08/19/20 11:05 Dose: Not Given Documented by: Aspirin (Aspirin 81 Mg Tab.Chew) 81 mg PO DAILY@0800 [facility] Last Admin: 08/15/20 10:06 Dose: 81 mg Documented by: Atorvastatin Calcium (Atorvastatin Calcium 40 Mg Tablet) 40 mg PO QHS [facility] Last Admin: 08/18/20 20:54 Dose: 40 mg Documented by: Bupropion HCl (Bupropion (Xl) 150 Mg Tablet.Xl) 150 mg PO DAILY [facility] Last Admin: 08/19/20 11:05 Dose: Not Given Documented by: Calamine/Phenol (Menthol/Lanolin/Calamine/Znox 113 Gm Tube) 1 applic TOPICAL BID [facility]; Protocol Last Admin: 08/19/20 11:10 Dose: 1 applicatio Documented by: Docusate Sodium (Docusate Sodium 100 Mg Capsule) 200 mg PO BID [facility] Last Admin: 08/19/20 11:04 Dose: Not Given Documented by: Furosemide (Furosemide 40 Mg/4 Ml Vial) 40 mg IV BID@1000,1800 [facility] Last Admin: 08/19/20 11:10 Dose: 40 mg Documented by: Sodium Chloride () 250 mls @ 15 mls/hr IV .[id number] PRN PRN Reason: Additional IVPB Infusion Last Infusion: 08/17/20 23:30 Dose: 0 mls/hr Documented by: Pantoprazole Sodium 40 mg/ (Sodium Chloride) 110 mls @ 330 mls/hr IV Q12 [facility] Last Admin: 08/19/20 10:58 Dose: 330 mls/hr Documented by: Insulin Human Lispro (Insulin Lispro 100 Unit/Ml Insuln.Pen) 0 unit SC PRN PRN; Protocol PRN Reason: NOT SPECIFIED Lactulose (Lactulose 20 Gm/30 Ml Udc) 30 gm PO TID [facility] Last Admin: 08/19/20 05:49 Dose: Not Given Documented by: Levothyroxine Sodium (Levothyroxine 75 Mcg Tablet) 75 mcg PO DAILY@0600 [facility] Last Admin: 08/19/20 05:49 Dose: Not Given Documented by: Midodrine (Midodrine Hcl 5 Mg Tablet) 10 mg PO TID [facility] Last Admin: 08/19/20 05:49 Dose: Not Given Documented by: Nystatin (Nystatin Powder 15gm Bottle) 1 applic TOPICAL BID [facility]; Protocol Last Admin: 08/19/20 11:04 Dose: Not Given Documented by: Ondansetron HCl (Ondansetron 4 Mg/2 Ml Vial) 4 mg IV Q8H PRN PRN PRN Reason: NAUSEA Last Admin: 08/11/20 13:13 Dose: 4 mg Documented by: Polyethylene Glycol (Polyethylene Glycol 3350 17 Gm Packet) 17 gm PO DAILY [facility] Last Admin: 08/19/20 11:04 Dose: Not Given Documented by: Rifaximin (Rifaximin 550 Mg Tablet) 550 mg PO BID [facility] Last Admin: 08/19/20 11:05 Dose: Not Given Documented by: Sodium Chloride (0.9% Saline Lock 10 Ml Syringe) 10 - 40 ml IV UD PRN PRN Reason: SALINE FLUSH Last Admin: 08/19/20 11:11 Dose: 10 ml Documented by: Assessment/Plan This patient was seen in conjunction with CATHRYN Diaz , I have independently interviewed and examined the patient and reviewed pertinent historical, laboratory, and other data. Please refer to CATHRYN Diaz note for details of this patient's presentation, findings, and recommendations. I have reviewed CATHRYN Diaz note and concur with documented findings. In brief, patient is a 60-year-old lady with multiple comorbidities admitted with increasing confusion and assessment of acute hypoxic respiratory failure secondary to combination of pneumonia CHF made admitted to monitored bed for further management 08/17/2020; patient seen remains significantly lethargic patient is at the point where she will require dialysis however patient unable to consent to dialysis catheter placement 08/18/2020: Patient seen with no significant change in her azotemia. Dialysis catheter placement placed on hold in view of inability to obtain consent. 08/19/2020: Patient remains significantly lethargic with worsening azotemia. Held discussion with both vascular surgery as well as nephrology. Plan is for patient to be transfused with FFP whilst patient undergoes dialysis catheter placement. Did sign consent in conjunction with nephrology the day prior for patient to proceed with the procedure since it was deemed to be medically necessary. Patient was unable to consent giving her medical condition. Physical Examination: GENERAL: Lethargic HEENT: Atraumatic; NECK; supple, normal thyroid, RESPIRATORY: Diminished to auscultation CARDIOVASCULAR: Regular S1 S2, GI: soft, normoactive bowel sounds, : No Renal angle tenderness; EXTREMITIES: Right AKA MUSCULOSKELETAL: no muscle waisting NEURO: A no lateralizing signs. Assessment: 1. Acute hypoxic respiratory failure 2. Pneumonia with suspected multidrug resistant organism 3. Acute congestive heart failure with reduced ejection fraction 4. Acute metabolic encephalopathy 5. Hypertension 6. Chronic kidney disease stage III/IV with worsening azotemia with plans for initiation of dialysis 7. Cirrhosis of the liver 8. Diabetes mellitus type 2 with complications including diabetic nephropathy 9. Paroxysmal A. fib 10. Essential hypertension blood pressure currently on hold in view of hypotension 11. Thrombocytopenia secondary to chronic liver disease 12. Acute kidney injury superimposed on chronic kidney disease stage IV 13. Dyslipidemia 14. Gout 15. GERD 16. Conduction system disorder status post pacemaker placement 17. Status post right AKA 18. Depression with anxiety 19. Previous history of DVT 20. Physical deconditioning Recommendations: 1. Options for management were reviewed Inpatient E&M: 56173 Subs Hosp L2
--- NOTE | 2020-08-19 12:20 | NURSING ---
1145, pt off unit for procedure
[2020-08-19] MEDS: Heparin 10,000 UNITS/10 ML Vial 10000 UNITS (13:25)
[2020-08-19] MEDS: Bupivacaine Mpf 0.5% 30 ML VIAL (13:28)
[2020-08-19] MEDS: Lidocaine 1% (30 ml sdv) 30 ML Vial (13:28)
--- NOTE | 2020-08-19 13:35 | OP.PCM_ITS ---
Problem List (1) MAX (acute kidney injury) Status: Acute Report of Operation Date of Procedure: 08/19/20 Pre-Operative Diagnosis: Acute kidney injury Post-Operative Diagnosis: Same Surgery/Procedure Performed:: Right internal jugular 19 cm precurved double- lumen palindrome catheter placement. Reference #[id number]. Lot #[id number]. Expiry date 02/16/2025 Description of Surgical Findings:: Timeout and informed consent was obtained. 60-year-old female was taken to the operating placed on the table underwent monitored anesthesia care. Clindamycin 900 g given intravenously preoperatively. The patient also was receiving prescribed fresh frozen plasma. The right neck and chest were sterilely prepped and draped. 1% lidocaine mixed 50-50 with 0.5% Marcaine was used as a local ane sthetic. Throughout the procedure 10 cc was used. Ultrasound was used to identify the right internal jugular vein local was instilled micropuncture needle inserted micropuncture sheath inserted 035 J-wire wire was inserted local was instilled down upon the right chest wall. The precurved cath was tunneled from the chest to the neck site. Fluoroscopy demonstrated good positioning of the J-wire. Serial dilatation was performed. The sheath dilator was inserted the dilator and wire were removed the catheter advanced through the sheath the sheath was split the catheter was positioned at the SVC atrial junction. The catheter was secured at the exit site with interrupted 3-0 nylon. The neck site was closed with interrupted 4-0 Monocryl subdermal stitch followed by simple sutures of 3-0 nylon because of the patient's excessive cardiac and fluid backflow. Hemostasis was achieved. Silver impregnated dressing was applied at the exit site. Telfa OpSite dressing at the night site. The patient was subsequently taken to the recovery area in satisfactory condition. Specimens none. Drains none. Blood loss 100 cc. Thor Ceron M.D., F.A.C.S. Type of Anesthesia:: Local MAC Anesthesiologist: Steven Helton
--- NOTE | 2020-08-19 14:20 | RAD_ITS ---
STUDY: X-RAY CHEST REASON FOR EXAM: Female, 60 years old. DIALYSIS CATH PLACEMENT TECHNIQUE: Single AP portable view of the chest. COMPARISON: Comparison made with prior study dated 08/14/2020. FINDINGS: A right-sided dialysis catheter has been placed. The tip is at the junction of the superior vena cava and right brachiocephalic vein There is evidence of vascular congestion and CHF. Some bilateral pleural effusions. There is moderate cardiac enlargement. Left-sided ICD Normal mediastinum and bridgett. Normal visualized pulmonary arteries. Normal visualized aortic arch and descending thoracic aorta. There are diffuse degenerative changes of the visualized thoracic spine. Normal visualized ribs, clavicles, and shoulders. There is no demonstrated abnormality of the visualized soft tissue structures of the upper abdomen. RAD/CXR for Line Placement IMPRESSION: The tip of the right dialysis catheter is at the junction of the superior vena cava and right brachiocephalic vein. CHF and small bilateral effusions. Electronically Signed: Willi Pittman, at 15:00 EST , Service support ,
[2020-08-19] MEDS: rifAXIMin 550 MG Tablet PO (22:37)
[2020-08-19] MEDS: Midodrine HCl 5 MG Tablet 10 MG PO (22:37)
[2020-08-19] MEDS: Atorvastatin Calcium 40 MG Tablet PO (22:38)
[2020-08-19] MEDS: Nystatin Powder 15gm Bottle 1 APPLIC TOPICAL (22:38)
[2020-08-19 22:46] LABS: Bedside Glucose 111 mg/dL (70-110)
[2020-08-20] VITALS (10 sets, daily range): BP systolic 115–200; BP diastolic 52–99; PULSE 78–80; RESP 16–18; TEMP 36.1–36.7; O2SAT 94–100
[2020-08-20 06:05] LABS: Hematocrit 31.3 % (37-47); Hemoglobin 9.1 g/dL (12.0-15.0); Mean Corp Hgb Conc 29.1 g/dL (32-36); Mean Corpuscular Hgb 28.7 pg (27.0-32.0); Mean Corpuscular Volume 98.7 fL (81-99); Mean Platelet Vol. 10.4 fl (6.2-12.0); POSITIVE MORPHOLOGY YES; Platelet Count 110 K/mm3 (150-450); RBC Distribution Width CV 21.9 % (11.6-14.6); RBC Distribution Width SD 74.8 fl (35.1-43.9); Red Blood Count 3.17 M/mm3 (4.2-5.4); Scan Indicated on CBC? Y/N YES- FLAGS NOTED
[2020-08-20] MEDS: Midodrine HCl 5 MG Tablet 10 MG PO ×2 (06:26→14:04)
[2020-08-20] MEDS: Levothyroxine 75 MCG Tablet PO (06:26)
[2020-08-20 06:28] LABS: BUN 95 mg/dL (7-18); BUN/Creat Ratio 33.7 RATIO (10-20); Creatinine, Serum 2.82 mg/dL (0.55-1.02); EST Glomerular Filtration Rate 18 mL/min (>60); Est Glom Filt Rate - Afr Amer 22 mL/min (>60); Estimated Creatinine Clearance 25.57 ml/min; Globulin 4.9 g/dL (2.2-4.2); Glucose 98 mg/dL (74-106); Protein, Total 6.9 g/dL (6.4-8.2)
[2020-08-20 06:29] LABS: ALB/GLOB Ratio 0.4 RATIO (0.9-2.4); AST(SGOT) 20 U/L (15-37); Alanine Aminotransfer ALT/SGPT 13 U/L (13-56); Alkaline Phosphatase 140 U/L (45-117); Anion Gap 6 (5-15); Calcium,Total 8.4 mg/dL (8.5-10.1); Chloride 109 mmol/L (98-107); Potassium 3.9 mmol/L (3.5-5.1); Sodium Level 141 mmol/L (136-145)
[2020-08-20 06:30] LABS: Differential Comment SCANNED
[2020-08-20 07:36] LABS: Bedside Glucose 114 mg/dL (70-110)
[2020-08-20 09:41] LABS: Hepatitis B Surface Antigen Non-Reactive (Nonreactive)
--- NOTE | 2020-08-20 09:52 | PCM.PN.REN ---
Patient Problems: Active and Suspected Problems (Last Reviewed 08/09/20 @ 19:[address] Aston Casiano, DO) MAX (acute kidney injury) (Acute) Healthcare-associated pneumonia (Acute) Hyperkalemia (Acute) Acute respiratory failure with hypoxia (Acute) Subjective: Patient is more awake today. feeling tired No worsening breathing. No N/V - Physical Exam Vitals/I&O's: Vital Signs Temp Pulse Resp BP Pulse Ox 98.0 F 79 18 140/69 H 95 08/20/20 04:16 08/20/20 04:16 08/20/20 04:16 08/20/20 04:16 08/20/20 07:22 Oxygen Flow Rate (L/min) 3 Oxygen Delivery Method Nasal Cannula Weight: 175.9 kg Body Mass Index (BMI) 51.1 Finger Stick Blood Glucose 77 Intake and Output for Last 24 Hours 08/18/20 08/19/20 08/20/20 23:59 23:59 23:59 Intake Total 340 / 340 326 / 326 0 / 0 Output Total 1300 / 1300 455 / 805 500 / 500 Balance -960 / -960 -129 / -479 -500 / -500 General: Alert, Cooperative HEENT: Atraumatic Oral: Moist Mucosa Neck: Supple, No JVD Lungs: Clear to auscultation, Normal air movement, No rhonchi, No wheeze Cardiovascular: Regular rate, Regular Rhythm, Normal S1, Normal S2 Abdomen: Bowel Sounds Present, Soft, Non Tender, Non-Distended Extremities: Edema - +2 edema of LE Lymphatic: No Cervical, Supraclavicular, or Inguinal Adenopathy Psych/Mental Status: Anxious Microbiology Past 72 Hours 08/17/20 01:07 Sputum, Expectorated/Coughed Gram Stain - Final 08/17/20 01:07 Sputum, Expectorated/Coughed Respiratory Culture - Final Presumptive C albicans Laboratory Results 08/19/20 20:00: Hep Bs Antigen Non-Reactive 08/19/20 22:18: POC Glucose 111 H 08/20/20 05:50: WBC 5.0, RBC 3.17 L, Hgb 9.1 L, Hct 31.3 L, MCV 98.7, MCH 28.7, MCHC 29.1 L, RDW Std Deviation 74.8 H, RDW Coeff of Yoandy 21.9 H, Plt Count 110 L, MPV 10.4, Differential Comment SCANNED 08/20/20 05:50: Sodium 141, Potassium 3.9, Chloride 109 H, Carbon Dioxide 26.0, Anion Gap 6, BUN 95 H, Creatinine 2.82 H, Estim Creat Clear Calc 25.57, Est GFR (MDRD) Af Amer 22 L, Est GFR (MDRD) Non-Af 18 L, BUN/Creatinine Ratio 33.7 H, Glucose 98, Calcium 8.4 L, Total Bilirubin 0.80, AST 20, ALT 13, Alkaline Phosphatase 140 H, Total Protein 6.9, Albumin 2.0 L, Globulin 4.9 H, Albumin/Globulin Ratio 0.4 L 08/20/20 05:50: Ammonia 37.0 H 08/20/20 07:31: POC Glucose 114 H Current Medications Acetaminophen (Acetaminophen 325 Mg Tablet) 650 mg PO Q6H PRN PRN PRN Reason: Pain Score 1-10/Temp > 100.7 F Last Admin: 08/18/20 22:31 Dose: 650 mg Documented by: Al Hydroxide/Mg Hydroxide (Mag Hydrox/Al Hydrox/Simeth 30 Ml Udc) 30 ml PO Q6H PRN PRN PRN Reason: Gastric Burning Albuterol Sulfate (Albuterol 2.5 Mg/3 Ml Vial.Neb.) 2.5 mg INHALATION Q2H PRN PRN PRN Reason: SHORTNESS OF BREATH Albuterol/Ipratropium (Ipratropium/Albuterol Sulfate 3 Ml Ampul.Neb) 3 ml INHALATION Q4H.RT [facility] Last Admin: 08/19/20 23:08 Dose: 3 ml Documented by: Allopurinol (Allopurinol 300 Mg Tablet) 300 mg PO DAILY [facility] Last Admin: 08/19/20 11:05 Dose: Not Given Documented by: Aspirin (Aspirin 81 Mg Tab.Chew) 81 mg PO DAILY@0800 [facility] Last Admin: 08/15/20 10:06 Dose: 81 mg Documented by: Atorvastatin Calcium (Atorvastatin Calcium 40 Mg Tablet) 40 mg PO QHS [facility] Last Admin: 08/19/20 22:38 Dose: 40 mg Documented by: Bupropion HCl (Bupropion (Xl) 150 Mg Tablet.Xl) 150 mg PO DAILY [facility] Last Admin: 08/19/20 11:05 Dose: Not Given Documented by: Calamine/Phenol (Menthol/Lanolin/Calamine/Znox 113 Gm Tube) 1 applic TOPICAL BID [facility]; Protocol Last Admin: 08/19/20 22:39 Dose: 1 applicatio Documented by: Docusate Sodium (Docusate Sodium 100 Mg Capsule) 200 mg PO BID [facility] Last Admin: 08/19/20 22:40 Dose: Not Given Documented by: Furosemide (Furosemide 40 Mg/4 Ml Vial) 40 mg IV BID@1000,1800 [facility] Last Admin: 08/19/20 18:50 Dose: Not Given Documented by: Sodium Chloride () 250 mls @ 15 mls/hr IV .[id number] PRN PRN Reason: Additional IVPB Infusion Last Infusion: 08/17/20 23:30 Dose: 0 mls/hr Documented by: Pantoprazole Sodium 40 mg/ (Sodium Chloride) 110 mls @ 330 mls/hr IV Q12 [facility] Last Infusion: 08/19/20 22:55 Dose: Infused Documented by: Insulin Human Lispro (Insulin Lispro 100 Unit/Ml Insuln.Pen) 0 unit SC PRN PRN; Protocol PRN Reason: NOT SPECIFIED Lactulose (Lactulose 20 Gm/30 Ml Udc) 30 gm PO TID [facility] Last Admin: 08/20/20 06:27 Dose: Not Given Documented by: Levothyroxine Sodium (Levothyroxine 75 Mcg Tablet) 75 mcg PO DAILY@0600 [facility] Last Admin: 08/20/20 06:26 Dose: 75 mcg Documented by: Midodrine (Midodrine Hcl 5 Mg Tablet) 10 mg PO TID [facility] Last Admin: 08/20/20 06:26 Dose: 10 mg Documented by: Nystatin (Nystatin Powder 15gm Bottle) 1 applic TOPICAL BID [facility]; Protocol Last Admin: 08/19/20 22:38 Dose: 1 applicatio Documented by: Ondansetron HCl (Ondansetron 4 Mg/2 Ml Vial) 4 mg IV Q8H PRN PRN PRN Reason: NAUSEA Last Admin: 08/11/20 13:13 Dose: 4 mg Documented by: Polyethylene Glycol (Polyethylene Glycol 3350 17 Gm Packet) 17 gm PO DAILY [facility] Last Admin: 08/19/20 11:04 Dose: Not Given Documented by: Rifaximin (Rifaximin 550 Mg Tablet) 550 mg PO BID [facility] Last Admin: 08/19/20 22:37 Dose: 550 mg Documented by: Sodium Chloride (0.9% Saline Lock 10 Ml Syringe) 10 - 40 ml IV UD PRN PRN Reason: SALINE FLUSH Last Admin: 08/19/20 11:11 Dose: 10 ml Documented by: Medical Necessity - Tobacco Use Smoking Status: Former smoker Assessment/Plan All Active Problems (Last Reviewed 08/09/20 @ 19:[address] Aston Casiano, DO) MAX (acute kidney injury) (Acute) Healthcare-associated pneumonia (Acute) Hyperkalemia (Acute) Acute respiratory failure with hypoxia (Acute) Infestation by bed bug (Resolved) 1. Acute kidney injury on chronic kidney disease stage 4.Baseline SCr was around 2.5 mg/dL MAX is likely prerenal from cardiorenal syndrome. FEUrea was 14% on 08/12/20. I reviewed echocardiogram from 2017. Patient has severely reduced right ventricle function with mildly reduced left ventricle function and moderate LVH. right heart failure is likely reason of CRS and fluid overload HD started 08/19 for uremia and fluid overload 2nd HD session today for 3 hrs , DQ 300 DQ 600, UF 2L 3rd HD session tomorrow HD access is Right IJ TC SW working on HD chair 2. Anemia. Hgb is 9.1 this am. Follow Hgb. Will give one dose of EPO 10,000 U today 3- change in mental status fro hepatic encephalopathy and uremia Improved. continue HD for uremic toxin removal continue lactulose as per the primary service. Please call if any question at [phone]
[2020-08-20] MEDS: Furosemide 40 MG/4 ML Vial IV ×2 (10:51→17:08)
[2020-08-20] MEDS: 0.9% Saline Lock 10 ML Syringe IV ×3 (10:51→22:47)
[2020-08-20] MEDS: Nystatin Powder 15gm Bottle 1 APPLIC TOPICAL ×2 (10:52→22:46)
[2020-08-20] MEDS: Menthol/Lanolin/Calamine/Znox 113 GM Tube 1 APPLIC TOPICAL ×2 (10:52→22:46)
[2020-08-20] MEDS: buPROPion (XL) 150 MG TABLET.XL PO (10:52)
[2020-08-20] MEDS: rifAXIMin 550 MG Tablet PO ×2 (10:52→22:47)
[2020-08-20] MEDS: Allopurinol 300 MG Tablet PO (10:52)
[2020-08-20] MEDS: Acetaminophen 325 MG Tablet 650 MG PO (10:58)
--- NOTE | 2020-08-20 11:08 | PN_ITS ---
<ShukriZuleyka HAIR ASSISTANT - Last Filed: 08/20/20 11:16> Patient Problems: Active and Suspected Problems (Last Reviewed 08/09/20 @ 19:[address] Aston argueta DO) MAX (acute kidney injury) (Acute) Healthcare-associated pneumonia (Acute) Hyperkalemia (Acute) Acute respiratory failure with hypoxia (Acute) Subjective: Patient seen and examined. States she is miserable. She denies pain. States overall she is just not feeling well. Mental status significantly improved. - Physical Exam Vitals/I&O's: Vital Signs Temp Pulse Resp BP Pulse Ox 97.5 F L 79 18 147/66 H 96 08/20/20 10:45 08/20/20 10:45 08/20/20 10:45 08/20/20 10:45 08/20/20 10:45 Oxygen Flow Rate (L/min) 4 Oxygen Delivery Method Nasal Cannula Weight: 387 lb 12.69 oz Body Mass Index (BMI) 51.1 Finger Stick Blood Glucose 77 Intake and Output for Last 24 Hours 08/18/20 08/19/20 08/20/20 23:59 23:59 23:59 Intake Total 340 / 340 326 / 326 0 / 0 Output Total 1300 / 1300 455 / 805 500 / 500 Balance -960 / -960 -129 / -479 -500 / -500 General: Alert, Cooperative, No apparent distress HEENT: Atraumatic, PERRLA, EOMI, Normocephalic Oral: Dry Mucosa Neck: Supple, No JVD, Negative Carotid Bruits Lungs: Clear to auscultation, Diminished Cardiovascular: Regular rate, No murmurs Abdomen: Bowel Sounds Present, Soft, Non Tender, Non-Distended, Obese Extremities: No clubbing, No cyanosis, Edema - LE Skin: No rashes, No breakdown Musculoskeletal: - - Right [id number]-iwd-fvoj amputation Neurological: Cranial nerves II-XII grossly intact, Neuro grossly intact Psych/Mental Status: Normal Affect, Appropriate Microbiology Past 72 Hours 08/17/20 01:07 Sputum, Expectorated/Coughed Gram Stain - Final 08/17/20 01:07 Sputum, Expectorated/Coughed Respiratory Culture - Final Presumptive C albicans Laboratory Results 08/19/20 20:00: Hep Bs Antigen Non-Reactive 08/19/20 22:18: POC Glucose 111 H 08/20/20 05:50: WBC 5.0, RBC 3.17 L, Hgb 9.1 L, Hct 31.3 L, MCV 98.7, MCH 28.7, MCHC 29.1 L, RDW Std Deviation 74.8 H, RDW Coeff of Yoandy 21.9 H, Plt Count 110 L, MPV 10.4, Differential Comment SCANNED 08/20/20 05:50: Sodium 141, Potassium 3.9, Chloride 109 H, Carbon Dioxide 26.0, Anion Gap 6, BUN 95 H, Creatinine 2.82 H, Estim Creat Clear Calc 25.57, Est GFR (MDRD) Af Amer 22 L, Est GFR (MDRD) Non-Af 18 L, BUN/Creatinine Ratio 33.7 H, Glucose 98, Calcium 8.4 L, Total Bilirubin 0.80, AST 20, ALT 13, Alkaline Phosphatase 140 H, Total Protein 6.9, Albumin 2.0 L, Globulin 4.9 H, Albumin/Globulin Ratio 0.4 L 08/20/20 05:50: Ammonia 37.0 H 08/20/20 07:31: POC Glucose 114 H Current Medications Acetaminophen (Acetaminophen 325 Mg Tablet) 650 mg PO Q6H PRN PRN PRN Reason: Pain Score 1-10/Temp > 100.7 F Last Admin: 08/20/20 10:58 Dose: 650 mg Documented by: Al Hydroxide/Mg Hydroxide (Mag Hydrox/Al Hydrox/Simeth 30 Ml Udc) 30 ml PO Q6H PRN PRN PRN Reason: Gastric Burning Albuterol Sulfate (Albuterol 2.5 Mg/3 Ml Vial.Neb.) 2.5 mg INHALATION Q2H PRN PRN PRN Reason: SHORTNESS OF BREATH Albuterol/Ipratropium (Ipratropium/Albuterol Sulfate 3 Ml Ampul.Neb) 3 ml INHALATION Q4H.RT [facility] Last Admin: 08/19/20 23:08 Dose: 3 ml Documented by: Allopurinol (Allopurinol 300 Mg Tablet) 300 mg PO DAILY [facility] Last Admin: 08/20/20 10:52 Dose: 300 mg Documented by: Aspirin (Aspirin 81 Mg Tab.Chew) 81 mg PO DAILY@0800 [facility] Last Admin: 08/15/20 10:06 Dose: 81 mg Documented by: Atorvastatin Calcium (Atorvastatin Calcium 40 Mg Tablet) 40 mg PO QHS [facility] Last Admin: 08/19/20 22:38 Dose: 40 mg Documented by: Bupropion HCl (Bupropion (Xl) 150 Mg Tablet.Xl) 150 mg PO DAILY [facility] Last Admin: 08/20/20 10:52 Dose: 150 mg Documented by: Calamine/Phenol (Menthol/Lanolin/Calamine/Znox 113 Gm Tube) 1 applic TOPICAL BID [facility]; Protocol Last Admin: 08/20/20 10:52 Dose: 1 applicatio Documented by: Docusate Sodium (Docusate Sodium 100 Mg Capsule) 200 mg PO BID [facility] Last Admin: 08/20/20 10:52 Dose: Not Given Documented by: Furosemide (Furosemide 40 Mg/4 Ml Vial) 40 mg IV BID@1000,1800 [facility] Last Admin: 08/20/20 10:51 Dose: 40 mg Documented by: Sodium Chloride () 250 mls @ 15 mls/hr IV .[id number] PRN PRN Reason: Additional IVPB Infusion Last Infusion: 08/17/20 23:30 Dose: 0 mls/hr Documented by: Pantoprazole Sodium 40 mg/ (Sodium Chloride) 110 mls @ 330 mls/hr IV Q12 [facility] Last Admin: 08/20/20 10:51 Dose: 330 mls/hr Documented by: Insulin Human Lispro (Insulin Lispro 100 Unit/Ml Insuln.Pen) 0 unit SC PRN PRN; Protocol PRN Reason: NOT SPECIFIED Lactulose (Lactulose 20 Gm/30 Ml Udc) 30 gm PO TID [facility] Last Admin: 08/20/20 06:27 Dose: Not Given Documented by: Levothyroxine Sodium (Levothyroxine 75 Mcg Tablet) 75 mcg PO DAILY@0600 [facility] Last Admin: 08/20/20 06:26 Dose: 75 mcg Documented by: Midodrine (Midodrine Hcl 5 Mg Tablet) 10 mg PO TID [facility] Last Admin: 08/20/20 06:26 Dose: 10 mg Documented by: Nystatin (Nystatin Powder 15gm Bottle) 1 applic TOPICAL BID [facility]; Protocol Last Admin: 08/20/20 10:52 Dose: 1 applicatio Documented by: Ondansetron HCl (Ondansetron 4 Mg/2 Ml Vial) 4 mg IV Q8H PRN PRN PRN Reason: NAUSEA Last Admin: 08/11/20 13:13 Dose: 4 mg Documented by: Polyethylene Glycol (Polyethylene Glycol 3350 17 Gm Packet) 17 gm PO DAILY [facility] Last Admin: 08/20/20 10:52 Dose: Not Given Documented by: Rifaximin (Rifaximin 550 Mg Tablet) 550 mg PO BID [facility] Last Admin: 08/20/20 10:52 Dose: 550 mg Documented by: Sodium Chloride (0.9% Saline Lock 10 Ml Syringe) 10 - 40 ml IV UD PRN PRN Reason: SALINE FLUSH Last Admin: 08/20/20 10:51 Dose: 20 ml Documented by: Medical Necessity - Tobacco Use Smoking Status: Former smoker Assessment/Plan All Active Problems (Last Reviewed 08/09/20 @ 19:[address] Aston Casiano, DO) MAX (acute kidney injury) (Acute) Healthcare-associated pneumonia (Acute) Hyperkalemia (Acute) Acute respiratory failure with hypoxia (Acute) Infestation by bed bug (Resolved) 1. Acute hypoxic respiratory failure secondary to healthcare associated pneumonia and heart failure with reduced ejection fraction-on BiPAP on admission. Covid negative. Completed Azactam and Vanco. Strep for urine and Legionella negative. Albuterol DuoNeb aerosols. Continue supplement oxygen to maintain O2 sat above 90%. 2. Acute kidney injury on chronic kidney disease stage IV with hyperkalemia- hyperkalemia resolved. Nephrology following. Likely prerenal from cardiorenal syndrome. Hemodialysis catheter placed 08/19/2020 followed by initiation of dialysis. Second hemodialysis session today. 3. Acute on chronic heart failure with reduced ejection fraction/ischemic cardiomyopathy-echo July 2020 demonstrates an EF of 25 to 30%. Continue IV Lasix. Strict I&O. Daily weight. 4. Liver cirrhosis with elevated LFTs and elevated ammonia-liver ultrasound demonstrates cirrhosis and ascites. Continue lactulose. 5. Metabolic encephalopathy-multifactorial secondary to #1/#2/#3/#4. Brain CT shows no acute abnormality. EEG demonstrates mild diffuse encephalopathy, no epileptiform discharges. Mental status improved with initiation of dialysis. 6. Acute Klebsiella UTI-completed course of antibiotics. 7. Acute on chronic blood loss anemia secondary to acute GI bleed-aspirin, Coumadin held. Hemoglobin stable. Continue IV PPI. Stool positive for occult blood. 8. Type 2 diabetes [id number]-Sodk-Ualix with sliding scale insulin. Continue home Lantus regimen. 9. Paroxysmal atrial fibrillation-Coumadin on hold secondary to anemia. Carvedilol held due to hypotension. 10. History of DVT-Coumadin on hold. 11. Hypertension-home carvedilol, isosorbide on hold. On midodrine for hypotension. Blood pressure is currently improved. 12. Hyperlipidemia-continue statin. 13. GERD-IV PPI. 14. Depression/anxiety-continue home bupropion regimen. 15. History of tobacco dependence- Encouraged continued cessation. 16. Status post right orkpn-rfc-sosu amputation-PT/OT. 17. Status post pacemaker placement-patient reports this was secondary to fast heart rate and atrial fibrillation. 18. Obesity-encourage diet lifestyle modifications. 19. History of left lower extremity vein grafting/bypass-continue statin. Aspirin on hold. 20. CAD with history of stents-continue statin. Aspirin, beta-jeremie, isosorbide, Lasix on hold. CODE STATUS-DNR CCA DVT prophylaxis-SCDs This patient was seen by CATHRYN Diaz under the supervision of Dr. Oquendo. <Feroz Oquendo F - Last Filed: 08/20/20 20:02> - Physical Exam Vitals/I&O's: Vital Signs Temp Pulse Resp BP Pulse Ox 97.6 F L 80 18 151/81 H 96 08/20/20 17:08 08/20/20 17:08 08/20/20 17:08 08/20/20 17:08 08/20/20 19:27 Oxygen Flow Rate (L/min) 3 Oxygen Delivery Method Nasal Cannula Weight: 387 lb 12.69 oz Body Mass Index (BMI) 51.1 Finger Stick Blood Glucose 77 Intake and Output for Last 24 Hours 08/18/20 08/19/20 08/20/20 23:59 23:59 23:59 Intake Total 340 / 340 326 / 326 270 / 270 Output Total 1300 / 1300 455 / 805 1100 / 1100 Balance -960 / -960 -129 / -479 -830 / -830 Microbiology Past 72 Hours 08/17/20 01:07 Sputum, Expectorated/Coughed Gram Stain - Final 08/17/20 01:07 Sputum, Expectorated/Coughed Respiratory Culture - Final Presumptive C albicans Laboratory Results 08/19/20 20:00: Hep Bs Antigen Non-Reactive 08/19/20 22:18: POC Glucose 111 H 08/20/20 05:50: WBC 5.0, RBC 3.17 L, Hgb 9.1 L, Hct 31.3 L, MCV 98.7, MCH 28.7, MCHC 29.1 L, RDW Std Deviation 74.8 H, RDW Coeff of Yoandy 21.9 H, Plt Count 110 L, MPV 10.4, Differential Comment SCANNED 08/20/20 05:50: Sodium 141, Potassium 3.9, Chloride 109 H, Carbon Dioxide 26.0, Anion Gap 6, BUN 95 H, Creatinine 2.82 H, Estim Creat Clear Calc 25.57, Est GFR (MDRD) Af Amer 22 L, Est GFR (MDRD) Non-Af 18 L, BUN/Creatinine Ratio 33.7 H, Glucose 98, Calcium 8.4 L, Total Bilirubin 0.80, AST 20, ALT 13, Alkaline Phosphatase 140 H, Total Protein 6.9, Albumin 2.0 L, Globulin 4.9 H, Albumin/Globulin Ratio 0.4 L 08/20/20 05:50: Ammonia 37.0 H 08/20/20 07:31: POC Glucose 114 H 08/20/20 11:00: POC Glucose 111 H 08/20/20 17:44: POC Glucose 127 H Current Medications Acetaminophen (Acetaminophen 325 Mg Tablet) 650 mg PO Q6H PRN PRN PRN Reason: Pain Score 1-10/Temp > 100.7 F Last Admin: 08/20/20 10:58 Dose: 650 mg Documented by: Al Hydroxide/Mg Hydroxide (Mag Hydrox/Al Hydrox/Simeth 30 Ml Udc) 30 ml PO Q6H PRN PRN PRN Reason: Gastric Burning Albuterol Sulfate (Albuterol 2.5 Mg/3 Ml Vial.Neb.) 2.5 mg INHALATION Q2H PRN PRN PRN Reason: SHORTNESS OF BREATH Albuterol/Ipratropium (Ipratropium/Albuterol Sulfate 3 Ml Ampul.Neb) 3 ml INHALATION Q4H.RT [facility] Last Admin: 08/19/20 23:08 Dose: 3 ml Documented by: Allopurinol (Allopurinol 300 Mg Tablet) 300 mg PO DAILY [facility] Last Admin: 08/20/20 10:52 Dose: 300 mg Documented by: Aspirin (Aspirin 81 Mg Tab.Chew) 81 mg PO DAILY@0800 [facility] Last Admin: 08/15/20 10:06 Dose: 81 mg Documented by: Atorvastatin Calcium (Atorvastatin Calcium 40 Mg Tablet) 40 mg PO QHS [facility] Last Admin: 08/19/20 22:38 Dose: 40 mg Documented by: Bupropion HCl (Bupropion (Xl) 150 Mg Tablet.Xl) 150 mg PO DAILY [facility] Last Admin: 08/20/20 10:52 Dose: 150 mg Documented by: Calamine/Phenol (Menthol/Lanolin/Calamine/Znox 113 Gm Tube) 1 applic TOPICAL BID [facility]; Protocol Last Admin: 08/20/20 10:52 Dose: 1 applicatio Documented by: Docusate Sodium (Docusate Sodium 100 Mg Capsule) 200 mg PO BID [facility] Last Admin: 08/20/20 10:52 Dose: Not Given Documented by: Furosemide (Furosemide 40 Mg/4 Ml Vial) 40 mg IV BID@1000,1800 [facility] Last Admin: 08/20/20 17:08 Dose: 40 mg Documented by: Sodium Chloride () 250 mls @ 15 mls/hr IV .[id number] PRN PRN Reason: Additional IVPB Infusion Last Infusion: 08/17/20 23:30 Dose: 0 mls/hr Documented by: Pantoprazole Sodium 40 mg/ (Sodium Chloride) 110 mls @ 330 mls/hr IV Q12 [facility] Last Infusion: 08/20/20 11:16 Dose: Infused Documented by: Insulin Human Lispro (Insulin Lispro 100 Unit/Ml Insuln.Pen) 0 unit SC PRN PRN; Protocol PRN Reason: NOT SPECIFIED Lactulose (Lactulose 20 Gm/30 Ml Udc) 30 gm PO TID [facility] Last Admin: 08/20/20 14:05 Dose: Not Given Documented by: Levothyroxine Sodium (Levothyroxine 75 Mcg Tablet) 75 mcg PO DAILY@0600 [facility] Last Admin: 08/20/20 06:26 Dose: 75 mcg Documented by: Midodrine (Midodrine Hcl 5 Mg Tablet) 10 mg PO TID [facility] Last Admin: 08/20/20 14:04 Dose: 10 mg Documented by: Nystatin (Nystatin Powder 15gm Bottle) 1 applic TOPICAL BID [facility]; Protocol Last Admin: 08/20/20 10:52 Dose: 1 applicatio Documented by: Ondansetron HCl (Ondansetron 4 Mg/2 Ml Vial) 4 mg IV Q8H PRN PRN PRN Reason: NAUSEA Last Admin: 08/11/20 13:13 Dose: 4 mg Documented by: Polyethylene Glycol (Polyethylene Glycol 3350 17 Gm Packet) 17 gm PO DAILY [facility] Last Admin: 08/20/20 10:52 Dose: Not Given Documented by: Rifaximin (Rifaximin 550 Mg Tablet) 550 mg PO BID [facility] Last Admin: 08/20/20 10:52 Dose: 550 mg Documented by: Sodium Chloride (0.9% Saline Lock 10 Ml Syringe) 10 - 40 ml IV UD PRN PRN Reason: SALINE FLUSH Last Admin: 08/20/20 17:09 Dose: 10 ml Documented by: Addendum: Dr. Oquendo I personally examined the patient and reviewed the chart. I agree with the above. 60-year-old female initially presented with acute hypoxic respiratory failure secondary to healthcare associated pneumonia as well as an MAX. She had a dialysis catheter placed yesterday and will be started on dialysis. She is extremely weak, and she is status post right AKA therefore with PT/OT evaluation, she would be criteria for transfer to a assisted facility for rehab. They are okay with her going over the weekend if able on dialysis. She has completed course of antibiotics for both her pneumonia as well as her Klebsiella UTI. Inpatient E&M: [id number] [facility] Hosp L2
[2020-08-20 11:20] LABS: Bedside Glucose 111 mg/dL (70-110)
--- NOTE | 2020-08-20 12:54 | CASEMGMT ---
Pt to have OP dialysis chair time of TTS 0610 now at this time. With next week being a holiday, Grady at [facility] states pt will be MWSat at 0610. Gokul STAFFORD aware, voices understanding. Arnold TEJEDA CM
--- NOTE | 2020-08-20 15:18 | CASEMGMT ---
[facility] spoke with Susana with [facility]. SW let her know that patient could possibly come over the weekend. She is aware her dialysis time will be 610a. Patient does not need to wait on a pre-cert as this process has been waived by insurance. [facility] will place a green sheet on chart in the event patient is ready over the weekend. Plan: d/c back to [place] under intermediate level of care. Ly CHUNG MSW
[2020-08-20 17:55] LABS: Bedside Glucose 127 mg/dL (70-110)
[2020-08-20] MEDS: Epoetin Alfa epbx 10,000 UNITS/ML 10000 UNIT SC (19:50)
--- NOTE | 2020-08-20 20:40 | DIALYSIS ---
Pt tolerated 2.5hr HD tx well. Net UF -2000ml. See flow record for tx data.
[2020-08-20] MEDS: Atorvastatin Calcium 40 MG Tablet PO (22:47)
[2020-08-21] MEDS: Midodrine HCl 5 MG Tablet 10 MG PO ×4 (00:12→20:20)
[2020-08-21 04:48] VITALS: BP 155/67; PULSE 76; RESP 18; TEMP 36.6; O2SAT 95
[2020-08-21] MEDS: Levothyroxine 75 MCG Tablet PO (05:53)
[2020-08-21 07:49] LABS: Hematocrit 31.9 % (37-47); Hemoglobin 8.9 g/dL (12.0-15.0); Mean Corp Hgb Conc 27.9 g/dL (32-36); Mean Corpuscular Hgb 27.9 pg (27.0-32.0); Mean Platelet Vol. 10.8 fl (6.2-12.0); POSITIVE MORPHOLOGY YES; Platelet Count 109 K/mm3 (150-450); RBC Distribution Width CV 22.5 % (11.6-14.6); RBC Distribution Width SD 79.8 fl (35.1-43.9); Red Blood Count 3.19 M/mm3 (4.2-5.4)
[2020-08-21 08:08] LABS: Scan Indicated on CBC? Y/N YES- FLAGS NOTED
[2020-08-21 08:29] LABS: ALB/GLOB Ratio 0.4 RATIO (0.9-2.4); AST(SGOT) 21 U/L (15-37); Alanine Aminotransfer ALT/SGPT 15 U/L (13-56); Alkaline Phosphatase 145 U/L (45-117); Anion Gap 8 (5-15); BUN 79 mg/dL (7-18); BUN/Creat Ratio 31.1 RATIO (10-20); Calcium,Total 8.7 mg/dL (8.5-10.1); Chloride 107 mmol/L (98-107); Creatinine, Serum 2.54 mg/dL (0.55-1.02); EST Glomerular Filtration Rate 21 mL/min (>60); Est Glom Filt Rate - Afr Amer 25 mL/min (>60); Estimated Creatinine Clearance 28.39 ml/min; Globulin 5.3 g/dL (2.2-4.2); Glucose 126 mg/dL (74-106); Potassium 3.9 mmol/L (3.5-5.1); Protein, Total 7.3 g/dL (6.4-8.2); Sodium Level 140 mmol/L (136-145)
[2020-08-21 09:34] LABS: Differential Comment SCANNED
--- NOTE | 2020-08-21 10:21 | PN.RENAL_ITS ---
Patient Problems: Active and Suspected Problems (Last Reviewed 08/09/20 @ 19:[address] Aston Casiano, DO) MAX (acute kidney injury) (Acute) Healthcare-associated pneumonia (Acute) Hyperkalemia (Acute) Acute respiratory failure with hypoxia (Acute) Subjective: no new events - Physical Exam Vitals/I&O's: Vital Signs Temp Pulse Resp BP Pulse Ox 97.9 F 76 18 155/67 H 95 08/21/20 04:48 08/21/20 04:48 08/21/20 04:48 08/21/20 04:48 08/21/20 04:48 Oxygen Flow Rate (L/min) 2 Oxygen Delivery Method Nasal Cannula Weight: 175.9 kg Body Mass Index (BMI) 51.1 Finger Stick Blood Glucose 77 Intake and Output for Last 24 Hours 08/19/20 08/20/20 08/21/20 23:59 23:59 23:59 Intake Total 326 / 326 380 / 380 50 / 50 Output Total 455 / 805 3100 / 3100 325 / 325 Balance -129 / -479 -2720 / -2720 -275 / -275 General: Alert, Oriented x3, Cooperative HEENT: Atraumatic, PERRLA, EOMI, Normocephalic Neck: Supple, No JVD, Negative Carotid Bruits Lungs: Clear to auscultation, Normal air movement Cardiovascular: Regular rate, No murmurs Abdomen: Bowel Sounds Present, Soft, Non Tender Extremities: No edema, Capillary Refill Less than 3 Seconds Skin: No rashes, No breakdown Musculoskeletal: No Tenderness to Palpation of Joints or Extremities Neurological: Cranial nerves II-XII grossly intact Psych/Mental Status: Normal Affect, Appropriate Microbiology Past 72 Hours 08/17/20 01:07 Sputum, Expectorated/Coughed Gram Stain - Final 08/17/20 01:07 Sputum, Expectorated/Coughed Respiratory Culture - Final Presumptive C albicans Laboratory Results 08/20/20 11:00: POC Glucose 111 H 08/20/20 17:44: POC Glucose 127 H 08/21/20 07:29: WBC 6.0, RBC 3.19 L, Hgb 8.9 L, Hct 31.9 L, MCV 100.0 H, MCH 27.9, MCHC 27.9 L, RDW Std Deviation 79.8 H, RDW Coeff of Yoandy 22.5 H, Plt Count 109 L, MPV 10.8, Differential Comment SCANNED 08/21/20 07:29: Sodium 140, Potassium 3.9, Chloride 107, Carbon Dioxide 25.0, Anion Gap 8, BUN 79 H, Creatinine 2.54 H, Estim Creat Clear Calc 28.39, Est GFR (MDRD) Af Amer 25 L, Est GFR (MDRD) Non-Af 21 L, BUN/Creatinine Ratio 31.1 H, Glucose 126 H, Calcium 8.7, Total Bilirubin 0.80, AST 21, ALT 15, Alkaline Phosphatase 145 H, Total Protein 7.3, Albumin 2.0 L, Globulin 5.3 H, Albumin/Globulin Ratio 0.4 L 08/21/20 07:29: Ammonia 46.0 H Current Medications Acetaminophen (Acetaminophen 325 Mg Tablet) 650 mg PO Q6H PRN PRN PRN Reason: Pain Score 1-10/Temp > 100.7 F Last Admin: 08/20/20 10:58 Dose: 650 mg Documented by: Al Hydroxide/Mg Hydroxide (Mag Hydrox/Al Hydrox/Simeth 30 Ml Udc) 30 ml PO Q6H PRN PRN PRN Reason: Gastric Burning Albuterol Sulfate (Albuterol 2.5 Mg/3 Ml Vial.Neb.) 2.5 mg INHALATION Q2H PRN PRN PRN Reason: SHORTNESS OF BREATH Albuterol/Ipratropium (Ipratropium/Albuterol Sulfate 3 Ml Ampul.Neb) 3 ml INHALATION Q4H.RT [facility] Last Admin: 08/19/20 23:08 Dose: 3 ml Documented by: Allopurinol (Allopurinol 300 Mg Tablet) 300 mg PO DAILY [facility] Last Admin: 08/20/20 10:52 Dose: 300 mg Documented by: Aspirin (Aspirin 81 Mg Tab.Chew) 81 mg PO DAILY@0800 [facility] Last Admin: 08/15/20 10:06 Dose: 81 mg Documented by: Atorvastatin Calcium (Atorvastatin Calcium 40 Mg Tablet) 40 mg PO QHS [facility] Last Admin: 08/20/20 22:47 Dose: 40 mg Documented by: Bupropion HCl (Bupropion (Xl) 150 Mg Tablet.Xl) 150 mg PO DAILY [facility] Last Admin: 08/20/20 10:52 Dose: 150 mg Documented by: Calamine/Phenol (Menthol/Lanolin/Calamine/Znox 113 Gm Tube) 1 applic TOPICAL BID [facility]; Protocol Last Admin: 08/20/20 22:46 Dose: 1 applicatio Documented by: Docusate Sodium (Docusate Sodium 100 Mg Capsule) 200 mg PO BID [facility] Last Admin: 08/20/20 22:47 Dose: Not Given Documented by: Furosemide (Furosemide 40 Mg/4 Ml Vial) 40 mg IV BID@1000,1800 [facility] Last Admin: 08/20/20 17:08 Dose: 40 mg Documented by: Sodium Chloride () 250 mls @ 15 mls/hr IV .[id number] PRN PRN Reason: Additional IVPB Infusion Last Infusion: 08/17/20 23:30 Dose: 0 mls/hr Documented by: Pantoprazole Sodium 40 mg/ (Sodium Chloride) 110 mls @ 330 mls/hr IV Q12 [facility] Last Infusion: 08/20/20 23:07 Dose: Infused Documented by: Insulin Human Lispro (Insulin Lispro 100 Unit/Ml Insuln.Pen) 0 unit SC PRN PRN; Protocol PRN Reason: NOT SPECIFIED Lactulose (Lactulose 20 Gm/30 Ml Udc) 30 gm PO TID [facility] Last Admin: 08/21/20 05:53 Dose: Not Given Documented by: Levothyroxine Sodium (Levothyroxine 75 Mcg Tablet) 75 mcg PO DAILY@0600 [facility] Last Admin: 08/21/20 05:53 Dose: 75 mcg Documented by: Midodrine (Midodrine Hcl 5 Mg Tablet) 10 mg PO TID [facility] Last Admin: 08/21/20 05:53 Dose: 10 mg Documented by: Nystatin (Nystatin Powder 15gm Bottle) 1 applic TOPICAL BID [facility]; Protocol Last Admin: 08/20/20 22:46 Dose: 1 applicatio Documented by: Ondansetron HCl (Ondansetron 4 Mg/2 Ml Vial) 4 mg IV Q8H PRN PRN PRN Reason: NAUSEA Last Admin: 08/11/20 13:13 Dose: 4 mg Documented by: Polyethylene Glycol (Polyethylene Glycol 3350 17 Gm Packet) 17 gm PO DAILY [facility] Last Admin: 08/20/20 10:52 Dose: Not Given Documented by: Rifaximin (Rifaximin 550 Mg Tablet) 550 mg PO BID [facility] Last Admin: 08/20/20 22:47 Dose: 550 mg Documented by: Sodium Chloride (0.9% Saline Lock 10 Ml Syringe) 10 - 40 ml IV UD PRN PRN Reason: SALINE FLUSH Last Admin: 08/20/20 22:47 Dose: 10 ml Documented by: Medical Necessity - Tobacco Use Smoking Status: Former smoker Assessment/Plan All Active Problems (Last Reviewed 08/09/20 @ 19:[address] Aston Casiano, DO) MAX (acute kidney injury) (Acute) Healthcare-associated pneumonia (Acute) Hyperkalemia (Acute) Acute respiratory failure with hypoxia (Acute) Infestation by bed bug (Resolved) 1. Acute kidney injury on chronic kidney disease stage 4.Baseline SCr was around 2.5 mg/dL MAX is likely prerenal from cardiorenal syndrome. FEUrea was 14% on 08/12/20. I reviewed echocardiogram from 2017. Patient has severely reduced right ventricle function with mildly reduced left ventricle function and moderate LVH. right heart failure is likely reason of CRS and fluid overload HD started 08/19 for uremia and fluid overload 3rd session today has a IJ TDC has a confirmed TTS spot at [facility] dialysis 2. Anemia. will give RUPERTO with HD 3- change in mental status fro hepatic encephalopathy and uremia Improved.
[2020-08-21 10:42] VITALS: BP 165/84; PULSE 78
[2020-08-21] MEDS: Heparin 10,000 UNITS/10 ML Vial IV (11:00)
--- NOTE | 2020-08-21 12:02 | DIALYSIS ---
Hemodialysis tx completed x 3.5 hours without complications. Pt tolerated tx well, fluid removed 3,000ml using crit-line monitor. Vitals stable throughout tx. Written report sheet completed post tx. Next HD tx Sunday08/23/20
--- NOTE | 2020-08-21 12:06 | PCM.PROGNOTE ---
<Zuleyka Watt PATENT EXAMINER - Last Filed: 08/21/20 12:10> Patient Problems: Active and Suspected Problems (Last Reviewed 08/09/20 @ 19:[address] Aston Casiano DO) MAX (acute kidney injury) (Acute) Healthcare-associated pneumonia (Acute) Hyperkalemia (Acute) Acute respiratory failure with hypoxia (Acute) Subjective: Patient undergoing dialysis. No acute events overnight. Mental status continues to be improved. Denies symptoms or complaints. - Physical Exam Vitals/I&O's: Vital Signs Temp Pulse Resp BP Pulse Ox 97.9 F 78 18 165/84 H 95 08/21/20 04:48 08/21/20 10:42 08/21/20 04:48 08/21/20 10:42 08/21/20 04:48 Oxygen Flow Rate (L/min) 2 Oxygen Delivery Method Nasal Cannula Weight: 387 lb 12.69 oz Body Mass Index (BMI) 51.1 Finger Stick Blood Glucose 77 Intake and Output for Last 24 Hours 08/19/20 08/20/20 08/21/20 23:59 23:59 23:59 Intake Total 326 / 326 380 / 380 50 / 50 Output Total 455 / 805 3100 / 3100 325 / 325 Balance -129 / -479 -2720 / -2720 -275 / -275 General: Alert, Oriented x3, Cooperative HEENT: Atraumatic, PERRLA, EOMI, Normocephalic Oral: Dry Mucosa Neck: Supple, No JVD, Negative Carotid Bruits Lungs: Clear to auscultation, Diminished Cardiovascular: Regular rate, No murmurs Abdomen: Bowel Sounds Present, Soft, Non Tender, Non-Distended, Obese Extremities: No clubbing, No cyanosis, Edema - Lower extremity Skin: No rashes, No breakdown Musculoskeletal: No Tenderness to Palpation of Joints or Extremities Neurological: Cranial nerves II-XII grossly intact Psych/Mental Status: Normal Affect, Appropriate Microbiology Past 72 Hours 08/17/20 01:07 Sputum, Expectorated/Coughed Gram Stain - Final 08/17/20 01:07 Sputum, Expectorated/Coughed Respiratory Culture - Final Presumptive C albicans Laboratory Results 08/20/20 17:44: POC Glucose 127 H 08/21/20 07:29: WBC 6.0, RBC 3.19 L, Hgb 8.9 L, Hct 31.9 L, MCV 100.0 H, MCH 27.9, MCHC 27.9 L, RDW Std Deviation 79.8 H, RDW Coeff of Yoandy 22.5 H, Plt Count 109 L, MPV 10.8, Differential Comment SCANNED 08/21/20 07:29: Sodium 140, Potassium 3.9, Chloride 107, Carbon Dioxide 25.0, Anion Gap 8, BUN 79 H, Creatinine 2.54 H, Estim Creat Clear Calc 28.39, Est GFR (MDRD) Af Amer 25 L, Est GFR (MDRD) Non-Af 21 L, BUN/Creatinine Ratio 31.1 H, Glucose 126 H, Calcium 8.7, Total Bilirubin 0.80, AST 21, ALT 15, Alkaline Phosphatase 145 H, Total Protein 7.3, Albumin 2.0 L, Globulin 5.3 H, Albumin/Globulin Ratio 0.4 L 08/21/20 07:29: Ammonia 46.0 H Current Medications Acetaminophen (Acetaminophen 325 Mg Tablet) 650 mg PO Q6H PRN PRN PRN Reason: Pain Score 1-10/Temp > 100.7 F Last Admin: 08/20/20 10:58 Dose: 650 mg Documented by: Al Hydroxide/Mg Hydroxide (Mag Hydrox/Al Hydrox/Simeth 30 Ml Udc) 30 ml PO Q6H PRN PRN PRN Reason: Gastric Burning Albuterol Sulfate (Albuterol 2.5 Mg/3 Ml Vial.Neb.) 2.5 mg INHALATION Q2H PRN PRN PRN Reason: SHORTNESS OF BREATH Albuterol/Ipratropium (Ipratropium/Albuterol Sulfate 3 Ml Ampul.Neb) 3 ml INHALATION Q4H.RT [facility] Last Admin: 08/19/20 23:08 Dose: 3 ml Documented by: Allopurinol (Allopurinol 300 Mg Tablet) 300 mg PO DAILY [facility] Last Admin: 08/20/20 10:52 Dose: 300 mg Documented by: Aspirin (Aspirin 81 Mg Tab.Chew) 81 mg PO DAILY@0800 [facility] Last Admin: 08/15/20 10:06 Dose: 81 mg Documented by: Atorvastatin Calcium (Atorvastatin Calcium 40 Mg Tablet) 40 mg PO QHS [facility] Last Admin: 08/20/20 22:47 Dose: 40 mg Documented by: Bupropion HCl (Bupropion (Xl) 150 Mg Tablet.Xl) 150 mg PO DAILY [facility] Last Admin: 08/20/20 10:52 Dose: 150 mg Documented by: Calamine/Phenol (Menthol/Lanolin/Calamine/Znox 113 Gm Tube) 1 applic TOPICAL BID [facility]; Protocol Last Admin: 08/20/20 22:46 Dose: 1 applicatio Documented by: Docusate Sodium (Docusate Sodium 100 Mg Capsule) 200 mg PO BID [facility] Last Admin: 08/20/20 22:47 Dose: Not Given Documented by: Furosemide (Furosemide 40 Mg/4 Ml Vial) 40 mg IV BID@1000,1800 [facility] Last Admin: 08/20/20 17:08 Dose: 40 mg Documented by: Sodium Chloride () 250 mls @ 15 mls/hr IV .[id number] PRN PRN Reason: Additional IVPB Infusion Last Infusion: 08/17/20 23:30 Dose: 0 mls/hr Documented by: Pantoprazole Sodium 40 mg/ (Sodium Chloride) 110 mls @ 330 mls/hr IV Q12 [facility] Last Infusion: 08/20/20 23:07 Dose: Infused Documented by: Insulin Human Lispro (Insulin Lispro 100 Unit/Ml Insuln.Pen) 0 unit SC PRN PRN; Protocol PRN Reason: NOT SPECIFIED Lactulose (Lactulose 20 Gm/30 Ml Udc) 30 gm PO TID [facility] Last Admin: 08/21/20 05:53 Dose: Not Given Documented by: Levothyroxine Sodium (Levothyroxine 75 Mcg Tablet) 75 mcg PO DAILY@0600 [facility] Last Admin: 08/21/20 05:53 Dose: 75 mcg Documented by: Midodrine (Midodrine Hcl 5 Mg Tablet) 10 mg PO TID [facility] Last Admin: 08/21/20 05:53 Dose: 10 mg Documented by: Nystatin (Nystatin Powder 15gm Bottle) 1 applic TOPICAL BID [facility]; Protocol Last Admin: 08/20/20 22:46 Dose: 1 applicatio Documented by: Ondansetron HCl (Ondansetron 4 Mg/2 Ml Vial) 4 mg IV Q8H PRN PRN PRN Reason: NAUSEA Last Admin: 08/11/20 13:13 Dose: 4 mg Documented by: Polyethylene Glycol (Polyethylene Glycol 3350 17 Gm Packet) 17 gm PO DAILY [facility] Last Admin: 08/20/20 10:52 Dose: Not Given Documented by: Rifaximin (Rifaximin 550 Mg Tablet) 550 mg PO BID [facility] Last Admin: 08/20/20 22:47 Dose: 550 mg Documented by: Sodium Chloride (0.9% Saline Lock 10 Ml Syringe) 10 - 40 ml IV UD PRN PRN Reason: SALINE FLUSH Last Admin: 08/20/20 22:47 Dose: 10 ml Documented by: Medical Necessity - Tobacco Use Smoking Status: Former smoker Assessment/Plan All Active Problems (Last Reviewed 08/09/20 @ 19:[address] Aston Casiano, DO) MAX (acute kidney injury) (Acute) Healthcare-associated pneumonia (Acute) Hyperkalemia (Acute) Acute respiratory failure with hypoxia (Acute) Infestation by bed bug (Resolved) 1. Acute hypoxic respiratory failure secondary to healthcare associated pneumonia and heart failure with reduced ejection fraction-on BiPAP on admission. Covid negative. Completed Azactam and Vanco. Strep for urine and Legionella negative. Albuterol DuoNeb aerosols. Continue supplement oxygen to maintain O2 sat above 90%. 2. Acute kidney injury on chronic kidney disease stage IV with hyperkalemia-hyperkalemia resolved. Nephrology following. Likely prerenal from cardiorenal syndrome. Hemodialysis catheter placed 08/19/2020 followed by initiation of dialysis. Third dialysis session today. 3. Acute on chronic heart failure with reduced ejection fraction/ischemic cardiomyopathy-echo July 2020 demonstrates an EF of 25 to 30%. Continue IV Lasix. Strict I&O. Daily weight. 4. Liver cirrhosis with elevated LFTs and elevated ammonia-liver ultrasound demonstrates cirrhosis and ascites. Continue lactulose. 5. Metabolic encephalopathy-multifactorial secondary to #1/#2/#3/#4. Brain CT shows no acute abnormality. EEG demonstrates mild diffuse encephalopathy, no epileptiform discharges. Mental status improved with initiation of dialysis. 6. Acute Klebsiella UTI-completed course of antibiotics. 7. Acute on chronic blood loss anemia secondary to acute GI bleed-aspirin, Coumadin held. Hemoglobin stable. Continue IV PPI. Stool positive for occult blood. 8. Type 2 diabetes [id number] with sliding scale insulin. Continue home Lantus regimen. 9. Paroxysmal atrial fibrillation-Coumadin on hold secondary to anemia. Carvedilol held due to hypotension. 10. History of DVT-Coumadin on hold. 11. Hypertension-home carvedilol, isosorbide on hold. On midodrine for hypotension. Blood pressure is currently improved. 12. Hyperlipidemia-continue statin. 13. GERD-IV PPI. 14. Depression/anxiety-continue home bupropion regimen. 15. History of tobacco dependence- Encouraged continued cessation. 16. Status post right [id number] amputation-PT/OT. 17. Status post pacemaker placement-patient reports this was secondary to fast heart rate and atrial fibrillation. 18. Obesity-encourage diet lifestyle modifications. 19. History of left lower extremity vein grafting/bypass-continue statin. Aspirin on hold. 20. CAD with history of stents-continue statin. Aspirin, beta-jeremie, isosorbide, Lasix on hold. CODE STATUS-DNR CCA DVT prophylaxis-SCDs This patient was seen by Zuleyka Watt NP-C under the supervision of Dr. Oquendo. <Feroz Oquendo F - Last Filed: 08/21/20 18:07> - Physical Exam Vitals/I&O's: Vital Signs Temp Pulse Resp BP Pulse Ox 97.3 F L 78 18 132/75 H 94 08/21/20 16:54 08/21/20 16:54 08/21/20 16:54 08/21/20 16:54 08/21/20 16:54 Oxygen Flow Rate (L/min) 2 Oxygen Delivery Method Nasal Cannula Weight: 387 lb 12.69 oz Body Mass Index (BMI) 51.1 Finger Stick Blood Glucose 77 Intake and Output for Last 24 Hours 08/19/20 08/20/20 08/21/20 23:59 23:59 23:59 Intake Total 326 / 326 380 / 380 160 / 160 Output Total 455 / 805 3100 / 3100 575 / 575 Balance -129 / -479 -2720 / -2720 -415 / -415 Microbiology Past 72 Hours 08/17/20 01:07 Sputum, Expectorated/Coughed Gram Stain - Final 08/17/20 01:07 Sputum, Expectorated/Coughed Respiratory Culture - Final Presumptive C albicans Laboratory Results 08/21/20 07:29: WBC 6.0, RBC 3.19 L, Hgb 8.9 L, Hct 31.9 L, MCV 100.0 H, MCH 27.9, MCHC 27.9 L, RDW Std Deviation 79.8 H, RDW Coeff of Yoandy 22.5 H, Plt Count 109 L, MPV 10.8, Differential Comment SCANNED 08/21/20 07:29: Sodium 140, Potassium 3.9, Chloride 107, Carbon Dioxide 25.0, Anion Gap 8, BUN 79 H, Creatinine 2.54 H, Estim Creat Clear Calc 28.39, Est GFR (MDRD) Af Amer 25 L, Est GFR (MDRD) Non-Af 21 L, BUN/Creatinine Ratio 31.1 H, Glucose 126 H, Calcium 8.7, Total Bilirubin 0.80, AST 21, ALT 15, Alkaline Phosphatase 145 H, Total Protein 7.3, Albumin 2.0 L, Globulin 5.3 H, Albumin/Globulin Ratio 0.4 L 08/21/20 07:29: Ammonia 46.0 H Current Medications Acetaminophen (Acetaminophen 325 Mg Tablet) 650 mg PO Q6H PRN PRN PRN Reason: Pain Score 1-10/Temp > 100.7 F Last Admin: 08/20/20 10:58 Dose: 650 mg Documented by: Al Hydroxide/Mg Hydroxide (Mag Hydrox/Al Hydrox/Simeth 30 Ml Udc) 30 ml PO Q6H PRN PRN PRN Reason: Gastric Burning Albuterol Sulfate (Albuterol 2.5 Mg/3 Ml Vial.Neb.) 2.5 mg INHALATION Q2H PRN PRN PRN Reason: SHORTNESS OF BREATH Albuterol/Ipratropium (Ipratropium/Albuterol Sulfate 3 Ml Ampul.Neb) 3 ml INHALATION Q4H.RT [facility] Last Admin: 08/19/20 23:08 Dose: 3 ml Documented by: Allopurinol (Allopurinol 300 Mg Tablet) 300 mg PO DAILY [facility] Last Admin: 08/21/20 14:06 Dose: 300 mg Documented by: Aspirin (Aspirin 81 Mg Tab.Chew) 81 mg PO DAILY@0800 [facility] Last Admin: 08/15/20 10:06 Dose: 81 mg Documented by: Atorvastatin Calcium (Atorvastatin Calcium 40 Mg Tablet) 40 mg PO QHS [facility] Last Admin: 08/20/20 22:47 Dose: 40 mg Documented by: Bupropion HCl (Bupropion (Xl) 150 Mg Tablet.Xl) 150 mg PO DAILY [facility] Last Admin: 08/21/20 14:04 Dose: 150 mg Documented by: Calamine/Phenol (Menthol/Lanolin/Calamine/Znox 113 Gm Tube) 1 applic TOPICAL BID [facility]; Protocol Last Admin: 08/21/20 14:02 Dose: 1 applicatio Documented by: Docusate Sodium (Docusate Sodium 100 Mg Capsule) 200 mg PO BID [facility] Last Admin: 08/21/20 14:01 Dose: Not Given Documented by: Furosemide (Furosemide 40 Mg/4 Ml Vial) 40 mg IV BID@1000,1800 [facility] Last Admin: 08/21/20 17:00 Dose: 40 mg Documented by: Sodium Chloride () 250 mls @ 15 mls/hr IV .[id number] PRN PRN Reason: Additional IVPB Infusion Last Infusion: 08/17/20 23:30 Dose: 0 mls/hr Documented by: Pantoprazole Sodium 40 mg/ (Sodium Chloride) 110 mls @ 330 mls/hr IV Q12 [facility] Last Infusion: 08/21/20 14:30 Dose: Infused Documented by: Insulin Human Lispro (Insulin Lispro 100 Unit/Ml Insuln.Pen) 0 unit SC PRN PRN; Protocol PRN Reason: NOT SPECIFIED Lactulose (Lactulose 20 Gm/30 Ml Udc) 30 gm PO TID [facility] Last Admin: 08/21/20 14:09 Dose: Not Given Documented by: Levothyroxine Sodium (Levothyroxine 75 Mcg Tablet) 75 mcg PO DAILY@0600 [facility] Last Admin: 08/21/20 05:53 Dose: 75 mcg Documented by: Midodrine (Midodrine Hcl 5 Mg Tablet) 10 mg PO TID [facility] Last Admin: 08/21/20 14:06 Dose: 10 mg Documented by: Nystatin (Nystatin Powder 15gm Bottle) 1 applic TOPICAL BID [facility]; Protocol Last Admin: 08/21/20 14:03 Dose: 1 applicatio Documented by: Ondansetron HCl (Ondansetron 4 Mg/2 Ml Vial) 4 mg IV Q8H PRN PRN PRN Reason: NAUSEA Last Admin: 08/11/20 13:13 Dose: 4 mg Documented by: Polyethylene Glycol (Polyethylene Glycol 3350 17 Gm Packet) 17 gm PO DAILY [facility] Last Admin: 08/21/20 14:03 Dose: Not Given Documented by: Rifaximin (Rifaximin 550 Mg Tablet) 550 mg PO BID [facility] Last Admin: 08/21/20 14:04 Dose: 550 mg Documented by: Sodium Chloride (0.9% Saline Lock 10 Ml Syringe) 10 - 40 ml IV UD PRN PRN Reason: SALINE FLUSH Last Admin: 08/21/20 17:00 Dose: 10 ml Documented by: Addendum: Dr. Oquendo I personally examined the patient and reviewed the chart. I agree with the above. 60-year-old female initially presented with acute hypoxic respiratory failure secondary to healthcare associated pneumonia as well as an MAX. She had a dialysis catheter placed yesterday and will be started on dialysis. She is extremely weak, and she is status post right AKA therefore with PT/OT evaluation, she would be criteria for transfer to a care home facility for rehab. They are okay with her going over the weekend if able on dialysis. She has completed course of antibiotics for both her pneumonia as well as her Klebsiella UTI. 08/21/2020: Still about the same as she was yesterday. No issues overnight however she just feels miserable overall. Continue with dialysis as her mental status is continuing to improve she has completed antibiotic course and therefore since she completed dialysis today will hopefully be able to discharge her tomorrow and have outpatient dialysis set up from the care home facility. Inpatient E&M: 12126 Subs Hosp L2
[2020-08-21 13:55] VITALS: BP 207/90; PULSE 79; RESP 18; TEMP 36.3; O2SAT 95
[2020-08-21] MEDS: Furosemide 40 MG/4 ML Vial IV ×2 (14:02→17:00)
[2020-08-21] MEDS: Menthol/Lanolin/Calamine/Znox 113 GM Tube 1 APPLIC TOPICAL ×2 (14:02→20:22)
[2020-08-21] MEDS: Nystatin Powder 15gm Bottle 1 APPLIC TOPICAL ×2 (14:03→20:22)
[2020-08-21] MEDS: buPROPion (XL) 150 MG TABLET.XL PO (14:04)
[2020-08-21] MEDS: rifAXIMin 550 MG Tablet PO ×2 (14:04→20:20)
[2020-08-21] MEDS: Allopurinol 300 MG Tablet PO (14:06)
[2020-08-21] MEDS: 0.9% Saline Lock 10 ML Syringe IV ×2 (14:19→17:00)
--- NOTE | 2020-08-21 16:13 | NURSING ---
pts bed does not weigh
[2020-08-21 16:54] VITALS: BP 132/75; PULSE 78; RESP 18; TEMP 36.3; O2SAT 94
[2020-08-21 20:16] VITALS: BP 147/70; PULSE 80; RESP 18; TEMP 36.3; O2SAT 95
[2020-08-21] MEDS: Atorvastatin Calcium 40 MG Tablet PO (20:20)
[2020-08-21] MEDS: Lactulose 20 GM/30 ML UDC 30 GM PO (20:21)
[2020-08-22 03:00] VITALS: BP 122/57; PULSE 78; RESP 18; TEMP 36.6; O2SAT 92
[2020-08-22 04:58] LABS: Hematocrit 32.1 % (37-47); Hemoglobin 9.3 g/dL (12.0-15.0); Mean Corpuscular Hgb 28.8 pg (27.0-32.0); Mean Corpuscular Volume 99.4 fL (81-99); Mean Platelet Vol. 11.8 fl (6.2-12.0); POSITIVE MORPHOLOGY YES; Platelet Count 108 K/mm3 (150-450); RBC Distribution Width CV 22.5 % (11.6-14.6); RBC Distribution Width SD 81.1 fl (35.1-43.9); Red Blood Count 3.23 M/mm3 (4.2-5.4); White Blood Count 5.7 K/mm3 (4.4-11.0)
[2020-08-22 05:04] LABS: Scan Indicated on CBC? Y/N YES- FLAGS NOTED
[2020-08-22 05:06] LABS: Anion Gap 8 (5-15); BUN 57 mg/dL (7-18); BUN/Creat Ratio 27.7 RATIO (10-20); Calcium,Total 8.4 mg/dL (8.5-10.1); Chloride 105 mmol/L (98-107); Creatinine, Serum 2.06 mg/dL (0.55-1.02); EST Glomerular Filtration Rate 26 mL/min (>60); Est Glom Filt Rate - Afr Amer 32 mL/min (>60); Glucose 95 mg/dL (74-106); Potassium 3.8 mmol/L (3.5-5.1); Sodium Level 138 mmol/L (136-145)
[2020-08-22] MEDS: Levothyroxine 75 MCG Tablet PO (05:09)
[2020-08-22] MEDS: Midodrine HCl 5 MG Tablet 10 MG PO ×2 (05:09→15:31)
[2020-08-22 09:00] VITALS: BP 140/68; PULSE 79; RESP 18; TEMP 36.7; O2SAT 96
[2020-08-22] MEDS: Docusate Sodium 100 MG Capsule 200 MG PO (09:07)
[2020-08-22] MEDS: Nystatin Powder 15gm Bottle 1 APPLIC TOPICAL (09:08)
[2020-08-22] MEDS: Furosemide 40 MG/4 ML Vial IV (09:08)
[2020-08-22] MEDS: Polyethylene Glycol 3350 17 GM PACKET PO (09:08)
[2020-08-22] MEDS: buPROPion (XL) 150 MG TABLET.XL PO (09:09)
[2020-08-22] MEDS: rifAXIMin 550 MG Tablet PO (09:10)
[2020-08-22] MEDS: Allopurinol 300 MG Tablet PO (09:10)
[2020-08-22] MEDS: Acetaminophen 325 MG Tablet 650 MG PO (09:15)
--- NOTE | 2020-08-22 11:59 | TREXTCA.CO_ITS ---
- Diet 08/20/20 10:48 Diet: Cardiac - Heart Healthy Food consistency:: Mechanical (Minced/Moist) Liquid Consistency:: Regular/Thin Is pt able to select menu?: No Fluid restriction:: 1500 mL Diet Comments: Supervision/Assist; Nepro Carb steady 120 ml w/ meals, ensure pudding L&D - Routine Orders/Code Status Enema Type: Fleetz Enema Frequency: Daily PRN Suppository Type: Dulcolax 10mg Suppository Frequency: Daily PRN Change Nash Catheter: 2 O2 Frequency: Continuous Keep PO Greater than or Equal to (%): 90 Routine Lab Work: - - CBC, BMP in 3 days then weekly. Code Status: [facility] - No intubation - Wound(s) COCCYX Wound Type: Pressure Injury LEFT ABD FOLDS Wound Type: open areas GUEVARA-RECTAL AREA Wound Type: open areas RIGHT NECK Wound Type: Surgical Incision RIGHT CHEST Wound Type: DIALYSIS CATHETER - Suggestions for Active Care Change Position every (hours): 2 Times a day to sit in chair: 3 - Therapies Physical Therapy: Eval and Treat Occupational Therapy: Eval and Treat Speech Therapy: Eval and Treat - Problem/Diagnosis (1) Heart failure Status: Chronic (2) Infestation by bed bug Status: Resolved (3) Anemia Status: Acute (4) Thrombocytopenia Status: Chronic (5) MAX (acute kidney injury) Status: Acute (6) CKD (chronic kidney disease) stage 3, GFR 30-59 ml/min Status: Chronic (7) Healthcare-associated pneumonia Status: Acute (8) Hyperkalemia Status: Acute (9) Acute respiratory failure with hypoxia Status: Acute (10) Asthma Status: Chronic (11) CVA (cerebral vascular accident) Status: Chronic Comment: 2001 (12) COPD (chronic obstructive pulmonary disease) Status: Chronic (13) History of PTCA Status: Chronic Comment: Mid LAD bare metal stent 07/20/2002. RCA Bare metal stent 07/02/2006 (14) History of permanent cardiac pacemaker placement Status: Chronic Comment: 09/08/2013,[facility] Dr[facility] Wil[facility] (15) Above knee amputation of right lower extremity Status: Chronic (16) History of tonsillectomy Status: Chronic (17) H/O: hysterectomy Status: Chronic (18) History of cholecystectomy Status: Chronic (19) H/O adenoidectomy Status: Chronic (20) HLD (hyperlipidemia) Status: Chronic (21) Coronary artery disease Status: Chronic (22) Hypothyroidism Status: Chronic (23) Atrial fibrillation Status: Chronic (24) Ischemic cardiomyopathy Status: Chronic (25) Diabetes mellitus Status: Chronic Comment: type II (26) Morbid obesity Status: Chronic (27) History of DVT of lower extremity Status: Chronic (28) Tobacco abuse Status: Chronic - Allergies/Procedures Done in Hospital Allergies/Adverse Reactions: Allergies codeine Allergy (Verified 07/07/20 14:29) Rash latex Allergy (Verified 07/07/20 14:29) Itching Penicillins Allergy (Verified 07/07/20 14:29) Swelling dexamethasone [From Maxidex] Adverse Reaction (Verified 07/07/20 14:29) Unknown iodine Adverse Reaction (Verified 07/07/20 14:29) Itching morphine Adverse Reaction (Verified 07/07/20 14:29) Other contrast dye Allergy (Uncoded 07/07/20 14:29) GI upset GI upset Procedures: Dialysis - Type of Care/Length of Stay Estimated LOS: More Than 30 Days Type of Care Needed: Intermediate Rehab Potential: Fair Prognosis: Fair - Additional Orders/Day of Discharge H&P will serve as current which was dated: 08/09/20 Day of Discharge: 08/22/20 - Dietary and Speech Recommendations Dietitian Recommendations/Changes: Will provide Cardiac diet w/ texture modifications per SLICE CUTTING MACHINE OPERATOR & fluid restriction as indicated- pt w/ increased needs d/t undergoing dialysis. Will provide Nepro Carb steady 120 ml w/ meals and ensure pudding w/ L&D for additional gerardo/pro if consumed. If pt continues w/ poor PO intake rec consideration of enteral nutrition support as indicated. Speech Linguistic Eval Summary: Pt alert and oriented to name, , current month/year, location. Pt knew it was the first part of the month but not certain the exact date. - Follow Up Care Primary Care Physician: Leslie Bird MD [Primary Care Provider] - Please follow up with your Primary Care Physician in: 1 Week Please Follow Up With: Nephrology/Dialysis When: As scheduled
--- NOTE | 2020-08-22 12:12 | VDLE_ITS ---
Reason For Study: [place] Procedure LEFT This is a venous duplex using B-mode, color PTV is compressible. flow and spectral Doppler. LT PerV is compressible. Exam performed portable in patient room. Unable to image CFV due to pt body habitus. The exam was of fair technical quality due Pt refused compression of FV and PopV due to to pain and edema. Unable to tolerate pain from edema. Normal color flow noted and transducer on skin.. pulsatile flow noted throughout. A preliminary report was called and/or faxed Unable to visualize GSV due to edema. to ARCHITECTURAL PRACTICE MANAGER. Interpretation Summary Technically very limited examination Left common femoral vein not able to be imaged secondary to body habitus Left femoral and popliteal veins could not be compressed due to pain. Unable to visualize left great saphenous vein No evidence for deep venous thrombosis in limited examination Ordering Physician: Zuleyka Watt Referring Physician: Leslie Bird M.D. Performed By: Laury Frazier RVT
--- NOTE | 2020-08-22 14:07 | DS.PCM_ITS ---
<Zuleyka Watt GUEST RELATIONS AGENT - Last Filed: 08/22/20 14:20> Discharge Date and Diagnosis - Problem List Patient Problems: Active and Suspected Problems (Last Reviewed 08/09/20 @ 19:[address] Aston Casiano DO) Anemia (Acute) MAX (acute kidney injury) (Acute) Healthcare-associated pneumonia (Acute) Hyperkalemia (Acute) Acute respiratory failure with hypoxia (Acute) Date of Admission: 08/09/20 Date of Discharge: 08/22/20 - Primary Discharge Diagnosis Acute Problems: Active Problems (Last Reviewed 08/09/20 @ 19:[address] Aston Casiano DO) 1. Acute hypoxic respiratory failure secondary to healthcare associated pneumonia and heart failure with reduced ejection fraction 2. Acute kidney injury on chronic kidney disease stage IV with hyperkalemia 3. Acute on chronic heart failure with reduced ejection fraction/ischemic cardiomyopathy 4. Liver cirrhosis with elevated LFTs and elevated ammonia 5. Metabolic encephalopathy-multifactorial secondary to #1/#2/#3/#4. 6. Acute Klebsiella UTI 7. Acute on chronic blood loss anemia secondary to acute GI bleed 8. Type 2 diabetes mellitus 9. Paroxysmal atrial fibrillation 10. History of DVT 11. Hypertension 12. Hyperlipidemia 13. GERD 14. Depression/anxiety 15. History of tobacco dependence 16. Status post right [id number]-ryhs amputation 17. Status post pacemaker placement 18. Obesity 19. History of left lower extremity vein grafting/bypass 20. CAD with history of stents - Secondary Discharge Diagnosis Chronic Problems: Chronic Problems (Last Reviewed 08/09/20 @ 19:[address] Aston Casiano DO) Heart failure (Chronic) Thrombocytopenia (Chronic) CKD (chronic kidney disease) stage 3, GFR 30-59 ml/min (Chronic) Chronic renal disease, stage V (Chronic) CRD (chronic renal disease), stage IV (Chronic) Asthma (Chronic) CVA (cerebral vascular accident) (Chronic) 2001 COPD (chronic obstructive pulmonary disease) (Chronic) History of PTCA (Chronic) Mid LAD bare metal stent 07/20/2002. RCA Bare metal stent 07/02/2006 History of permanent cardiac pacemaker placement (Chronic) 09/08/2013,[facility] Dr. 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 There is no interval change. Electronically Signed: Vasquez Degroot DO at 18:31 EST Tel [phone], Service support , Renal Ultrasound 08/12/20 10:35 IMPRESSION: No renal stone or hydronephrosis. Mild ascites. Large right pleural effusion. Electronically Signed: Fritz Barahona DO at 21:12 EST Tel [phone], Service support , Liver Ultrasound 08/13/20 11:15 IMPRESSION: Cirrhosis. Ascites. Status post cholecystectomy. Electronically Signed: Fritz Barahona DO at 17:30 EST Tel [phone], Service support , Chest X-Ray 08/19/20 14:20 IMPRESSION: The tip of the right dialysis catheter is at the junction of the superior vena cava and right brachiocephalic vein. CHF and small bilateral effusions. Electronically Signed: Willi Pittman, at 15:00 EST , Service support , Dr. Wallace- Nephrology Dr. De Anda- Pulmonary medicine Dr. Ceron- vascular surgery Operations: None Procedures: - - Right IJ catheter placement Summary of Care Provided: The patient is a 60 year old F admitted 08/09/2020 due to confusion. 1. Acute hypoxic respiratory failure secondary to healthcare associated pneumonia and heart failure with reduced ejection fraction-on BiPAP on admission. Covid negative. Completed Azactam and Vanco. Strep for urine and Legionella negative. Albuterol DuoNeb aerosols. Continue supplement oxygen to maintain O2 sat above 90%. 2. Acute kidney injury on chronic kidney disease stage IV with hyperkalemia-hyperkalemia resolved. Nephrology consulted during admission. Likely prerenal from cardiorenal syndrome. Hemodialysis catheter placed 08/19/2020 followed by initiation of dialysis. Patient completed dialysis x3. She is scheduled for dialysis Sunday, , Sunday at [facility]. 3. Acute on chronic heart failure with reduced ejection fraction/ischemic cardiomyopathy-echo July 2020 demonstrates an EF of 25 to 30%. Further Lasix discontinued with the initiation of dialysis. 4. Liver cirrhosis with elevated LFTs and elevated ammonia-liver ultrasound demonstrates cirrhosis and ascites. Continue lactulose, Xifaxan. 5. Metabolic encephalopathy-multifactorial secondary to #1/#2/#3/#4. Brain CT shows no acute abnormality. EEG demonstrates mild diffuse encephalopathy, no epileptiform discharges. Mental status improved with initiation of dialysis. 6. Acute Klebsiella UTI-completed course of antibiotics. 7. Acute on chronic blood loss anemia secondary to acute GI bleed-Hemoglobin stable. Stool positive for occult blood. Continue twice daily PPI. Resume aspirin, Coumadin and trend CBC at SNF. If patient has recurrent drop in hemoglobin, will need GI work-up. 8. Type 2 diabetes [id number] with sliding scale insulin. 9. Paroxysmal atrial fibrillation-carvedilol discontinued due to hypotension. Resume Coumadin and trend INR. 10. History of DVT-Coumadin resumed as noted above. Left lower extremity duplex ultrasound preliminary read negative for DVT. 11. Hypertension-home carvedilol, isosorbide, hydralazine discontinued. Previously requiring midodrine for hypotension which has since been discontinued. 12. Hyperlipidemia-continue statin. 13. GERD-twice daily PPI. 14. Depression/anxiety-continue home bupropion regimen. 15. History of tobacco dependence- Encouraged continued cessation. 16. Status post right hqrum-gxi-ghdm amputation-PT/OT. 17. Status post pacemaker placement-patient reports this was secondary to fast heart rate and atrial fibrillation. 18. Obesity-encourage diet lifestyle modifications. 19. History of left lower extremity vein grafting/bypass-continue statin, aspirin. 20. CAD with history of stents-continue medical management. General: Alert, Oriented x3, Cooperative HEENT: Atraumatic, PERRLA, EOMI, Normocephalic Oral: Dry Mucosa Neck: Supple, No JVD, Negative Carotid Bruits Lungs: Clear to auscultation, Diminished Cardiovascular: Regular rate, No murmurs Abdomen: Bowel Sounds Present, Soft, Non Tender, Non-Distended, Obese Extremities: No clubbing, No cyanosis, Edema - Lower extremity Skin: No rashes, No breakdown Musculoskeletal: No Tenderness to Palpation of Joints or Extremities Neurological: Cranial nerves II-XII grossly intact Psych/Mental Status: Normal Affect, Appropriate Patient seen and examined prior to discharge. Physical assessment as noted above. Patient discharged to SNF for further rehab. Recommend palliative/hospice consult at SNF given patient's declining health and significant comorbidities. This patient was seen by CATHRYN Diaz under the supervision of Dr. Oquendo. Patient Problems: Active and Suspected Problems (Last Reviewed 08/09/20 @ 19:[address] Aston Casiano, DO) Anemia (Acute) MAX (acute kidney injury) (Acute) Healthcare-associated pneumonia (Acute) Hyperkalemia (Acute) Acute respiratory failure with hypoxia (Acute) - Physical Exam Vitals/I&O's: Vital Signs Temp Pulse Resp BP Pulse Ox 98.0 F 79 18 140/68 H 96 08/22/20 09:00 08/22/20 09:00 08/22/20 09:00 08/22/20 09:00 08/22/20 09:00 Oxygen Flow Rate (L/min) 2 Oxygen Delivery Method Nasal Cannula Weight: 387 lb 12.69 oz Body Mass Index (BMI) 51.1 Finger Stick Blood Glucose 77 Intake and Output for Last 24 Hours 08/20/20 08/21/20 08/22/20 23:59 23:59 23:59 Intake Total 380 / 380 287.25 / 317.25 140 / 140 Output Total 3100 / 3100 575 / 725 300 / 300 Balance -2720 / -2720 -287.75 / -407.75 -160 / -160 Microbiology Past 72 Hours 08/17/20 01:07 Sputum, Expectorated/Coughed Gram Stain - Final 08/17/20 01:07 Sputum, Expectorated/Coughed Respiratory Culture - Final Presumptive C albicans Laboratory Results 08/22/20 04:30: WBC 5.7, RBC 3.23 L, Hgb 9.3 L, Hct 32.1 L, MCV 99.4 H, MCH 28.8, MCHC 29.0 L, RDW Std Deviation 81.1 H, RDW Coeff of Yoandy 22.5 H, Plt Count 108 L, MPV 11.8, Differential Comment COMMENT 08/22/20 04:35: Sodium 138, Potassium 3.8, Chloride 105, Carbon Dioxide 25.0, Anion Gap 8, BUN 57 H, Creatinine 2.06 H, Estim Creat Clear Calc 35.00, Est GFR (MDRD) Af Amer 32 L, Est GFR (MDRD) Non-Af 26 L, BUN/Creatinine Ratio 27.7 H, Glucose 95, Calcium 8.4 L Current Medications Acetaminophen (Acetaminophen 325 Mg Tablet) 650 mg PO Q6H PRN PRN PRN Reason: Pain Score 1-10/Temp > 100.7 F Last Admin: 08/22/20 09:15 Dose: 650 mg Documented by: Al Hydroxide/Mg Hydroxide (Mag Hydrox/Al Hydrox/Simeth 30 Ml Udc) 30 ml PO Q6H PRN PRN PRN Reason: Gastric Burning Albuterol Sulfate (Albuterol 2.5 Mg/3 Ml Vial.Neb.) 2.5 mg INHALATION Q2H PRN PRN PRN Reason: SHORTNESS OF BREATH Albuterol/Ipratropium (Ipratropium/Albuterol Sulfate 3 Ml Ampul.Neb) 3 ml INHALATION Q4H.RT [facility] Last Admin: 08/19/20 23:08 Dose: 3 ml Documented by: Allopurinol (Allopurinol 300 Mg Tablet) 300 mg PO DAILY [facility] Last Admin: 08/22/20 09:10 Dose: 300 mg Documented by: Aspirin (Aspirin 81 Mg Tab.Chew) 81 mg PO DAILY@0800 [facility] Last Admin: 08/15/20 10:06 Dose: 81 mg Documented by: Atorvastatin Calcium (Atorvastatin Calcium 40 Mg Tablet) 40 mg PO QHS [facility] Last Admin: 08/21/20 20:20 Dose: 40 mg Documented by: Bupropion HCl (Bupropion (Xl) 150 Mg Tablet.Xl) 150 mg PO DAILY [facility] Last Admin: 08/22/20 09:09 Dose: 150 mg Documented by: Calamine/Phenol (Menthol/Lanolin/Calamine/Znox 113 Gm Tube) 1 applic TOPICAL BID [facility]; Protocol Last Admin: 08/22/20 11:22 Dose: Not Given Documented by: Docusate Sodium (Docusate Sodium 100 Mg Capsule) 200 mg PO BID [facility] Last Admin: 08/22/20 09:07 Dose: 200 mg Documented by: Sodium Chloride () 250 mls @ 15 mls/hr IV .[id number] PRN PRN Reason: Additional IVPB Infusion Last Infusion: 08/21/20 22:06 Dose: 0 mls/hr Documented by: Insulin Human Lispro (Insulin Lispro 100 Unit/Ml Insuln.Pen) 0 unit SC PRN PRN; Protocol PRN Reason: NOT SPECIFIED Lactulose (Lactulose 20 Gm/30 Ml Udc) 30 gm PO TID [facility] Last Admin: 08/22/20 05:09 Dose: Not Given Documented by: Levothyroxine Sodium (Levothyroxine 75 Mcg Tablet) 75 mcg PO DAILY@0600 [facility] Last Admin: 08/22/20 05:09 Dose: 75 mcg Documented by: Midodrine (Midodrine Hcl 5 Mg Tablet) 10 mg PO TID [facility] Last Admin: 08/22/20 05:09 Dose: 10 mg Documented by: Nystatin (Nystatin Powder 15gm Bottle) 1 applic TOPICAL BID [facility]; Protocol Last Admin: 08/22/20 09:08 Dose: 1 applicatio Documented by: Ondansetron HCl (Ondansetron 4 Mg/2 Ml Vial) 4 mg IV Q8H PRN PRN PRN Reason: NAUSEA Last Admin: 08/11/20 13:13 Dose: 4 mg Documented by: Pantoprazole Sodium (Pantoprazole Sodium 40 Mg Tablet) 40 mg PO BID [facility] Polyethylene Glycol (Polyethylene Glycol 3350 17 Gm Packet) 17 gm PO DAILY [facility] Last Admin: 08/22/20 09:08 Dose: 17 gm Documented by: Rifaximin (Rifaximin 550 Mg Tablet) 550 mg PO BID [facility] Last Admin: 08/22/20 09:10 Dose: 550 mg Documented by: Sodium Chloride (0.9% Saline Lock 10 Ml Syringe) 10 - 40 ml IV UD PRN PRN Reason: SALINE FLUSH Last Admin: 08/21/20 17:00 Dose: 10 ml Documented by: Home Medications: Medications to take at Discharge Nitroglycerin [Nitrostat] 0.4 mg SL PRN PRN 07/19/13 Atorvastatin Calcium [Lipitor] 40 mg PO QHS 06/02/15 Aspirin [Aspirin, Baby] 81 mg PO DAILY@0800 08/15/17 Ondansetron [Zofran Odt] 4 mg PO Q8H PRN PRN #10 tab 03/22/19 Allopurinol 300 mg PO DAILY 11/04/19 Bupropion HCl [Bupropion Xl] 150 mg PO DAILY 07/07/20 Bupropion HCl [Bupropion Xl] 300 mg PO DAILY 07/07/20 Acetaminophen [Tylenol Tablet] 650 mg PO Q6H PRN PRN tab 07/09/20 Mag Hydrox/Al Hydrox/Simeth [Mylanta II] 30 ml PO Q6H PRN PRN udc 07/09/20 Docusate Sodium [Colace] 200 mg PO BID 08/09/20 Insulin Lispro [Humalog KwikPen] See Protocol SQ ACHS 08/09/20 Multivitamin 1 tab PO DAILY 08/09/20 Nystatin Powder [Mycostatin Powder] 1 applic TOPICAL BID 08/09/20 Nystatin/Triamcin Cream [Mycolog] 1 applic TOPICAL BID 08/09/20 Polyethylene Glycol 3350 [Miralax] 17 gm PO DAILY 08/09/20 Warfarin Sodium 4 mg PO DAILY 08/09/20 Lactulose [Chronulac] 30 gm PO TID udc 08/22/20 Levothyroxine [Synthroid] 75 mcg PO DAILY@0600 tab 08/22/20 Pantoprazole Sodium [Protonix] 40 mg PO BID tab 08/22/20 Rifaximin [Xifaxan] 550 mg PO BID tab 08/22/20 Primary Care Physician: Leslie Bird MD [Primary Care Provider] - Please follow up with your Primary Care Physician in: 1 Week Please Follow Up With: Nephrology/Dialysis When: As scheduled Please Follow Up With: Cristi Locke DO When: Recommend palliative/hospice consult at SNF Disposition: [facility] facility Minutes spent on discharge:: 35 Patient Condition:: Stable Medical Necessity - Tobacco Use Smoking Status: Former smoker Meaningful Use Info Meaningful Use Diagnoses (Choose all that apply): CHF - CHF ZACHARY/ARB ordered at discharge?: No Reason ZACHARY/ARB not ordered?: Worsening renal function Documented LVEF (%): 25 <Feroz Oquendo - Last Filed: 08/22/20 17:41> Discharge Date and Diagnosis - Primary Discharge Diagnosis Acute Problems: Active Problems (Last Reviewed 08/09/20 @ 19:[address] Aston Casiano DO) Anemia (Acute) MAX (acute kidney injury) (Acute) Healthcare-associated pneumonia (Acute) Hyperkalemia (Acute) Acute respiratory failure with hypoxia (Acute) - Secondary Discharge Diagnosis Chronic Problems: Chronic Problems (Last Reviewed 08/09/20 @ 19:[address] Aston Casiano DO) Heart failure (Chronic) Thrombocytopenia (Chronic) CKD (chronic kidney disease) stage 3, GFR 30-59 ml/min (Chronic) Chronic renal disease, stage V (Chronic) CRD (chronic renal disease), stage IV (Chronic) Asthma (Chronic) CVA (cerebral vascular accident) (Chronic) 2001 COPD (chronic obstructive pulmonary disease) (Chronic) History of PTCA (Chronic) Mid LAD bare metal stent 07/20/2002. RCA Bare metal stent 07/02/2006 History of permanent cardiac pacemaker placement (Chronic) 09/08/2013,[facility] Dr. 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) History of tonsillectomy (Chronic) H/O: hysterectomy (Chronic) History of cholecystectomy (Chronic) H/O adenoidectomy (Chronic) HLD (hyperlipidemia) (Chronic) Coronary artery disease (Chronic) Hypothyroidism (Chronic) Atrial fibrillation (Chronic) Ischemic cardiomyopathy (Chronic) Diabetes mellitus (Chronic) type II Morbid obesity (Chronic) History of DVT of lower extremity (Chronic) Tobacco abuse (Chronic) Hospital Course and Treatment Summary of Care Provided: The patient is a 60 year old F [] - Physical Exam Vitals/I&O's: Vital Signs Temp Pulse Resp BP Pulse Ox 97.8 F 79 20 H 167/80 H 93 08/22/20 15:45 08/22/20 15:45 08/22/20 15:45 08/22/20 15:45 08/22/20 15:45 Oxygen Flow Rate (L/min) 2 Oxygen Delivery Method Nasal Cannula Weight: 387 lb 12.69 oz Body Mass Index (BMI) 51.1 Finger Stick Blood Glucose 77 Intake and Output for Last 24 Hours 08/20/20 08/21/20 08/22/20 23:59 23:59 23:59 Intake Total 380 / 380 287.25 / 317.25 140 / 140 Output Total 3100 / 3100 575 / 725 300 / 300 Balance -2720 / -2720 -287.75 / -407.75 -160 / -160 Microbiology Past 72 Hours 08/22/20 16:15 Interface Orders SARS-CoV-2 Antigen (Rapid) - Final Laboratory Results 08/22/20 04:30: WBC 5.7, RBC 3.23 L, Hgb 9.3 L, Hct 32.1 L, MCV 99.4 H, MCH 28.8, MCHC 29.0 L, RDW Std Deviation 81.1 H, RDW Coeff of Yoandy 22.5 H, Plt Count 108 L, MPV 11.8, Differential Comment COMMENT 08/22/20 04:35: Sodium 138, Potassium 3.8, Chloride 105, Carbon Dioxide 25.0, Anion Gap 8, BUN 57 H, Creatinine 2.06 H, Estim Creat Clear Calc 35.00, Est GFR (MDRD) Af Amer 32 L, Est GFR (MDRD) Non-Af 26 L, BUN/Creatinine Ratio 27.7 H, Glucose 95, Calcium 8.4 L Current Medications Acetaminophen (Acetaminophen 325 Mg Tablet) 650 mg PO Q6H PRN PRN PRN Reason: Pain Score 1-10/Temp > 100.7 F Last Admin: 08/22/20 09:15 Dose: 650 mg Documented by: Al Hydroxide/Mg Hydroxide (Mag Hydrox/Al Hydrox/Simeth 30 Ml Udc) 30 ml PO Q6H PRN PRN PRN Reason: Gastric Burning Albuterol Sulfate (Albuterol 2.5 Mg/3 Ml Vial.Neb.) 2.5 mg INHALATION Q2H PRN PRN PRN Reason: SHORTNESS OF BREATH Albuterol/Ipratropium (Ipratropium/Albuterol Sulfate 3 Ml Ampul.Neb) 3 ml INHALATION Q4H.RT [facility] Last Admin: 08/19/20 23:08 Dose: 3 ml Documented by: Allopurinol (Allopurinol 300 Mg Tablet) 300 mg PO DAILY [facility] Last Admin: 08/22/20 09:10 Dose: 300 mg Documented by: Aspirin (Aspirin 81 Mg Tab.Chew) 81 mg PO DAILY@0800 [facility] Last Admin: 08/15/20 10:06 Dose: 81 mg Documented by: Atorvastatin Calcium (Atorvastatin Calcium 40 Mg Tablet) 40 mg PO QHS [facility] Last Admin: 08/21/20 20:20 Dose: 40 mg Documented by: Bupropion HCl (Bupropion (Xl) 150 Mg Tablet.Xl) 150 mg PO DAILY [facility] Last Admin: 08/22/20 09:09 Dose: 150 mg Documented by: Calamine/Phenol (Menthol/Lanolin/Calamine/Znox 113 Gm Tube) 1 applic TOPICAL BI D [facility]; Protocol Last Admin: 08/22/20 11:22 Dose: Not Given Documented by: Docusate Sodium (Docusate Sodium 100 Mg Capsule) 200 mg PO BID [facility] Last Admin: 08/22/20 09:07 Dose: 200 mg Documented by: Sodium Chloride () 250 mls @ 15 mls/hr IV .[id number] PRN PRN Reason: Additional IVPB Infusion Last Infusion: 08/21/20 22:06 Dose: 0 mls/hr Documented by: Insulin Human Lispro (Insulin Lispro 100 Unit/Ml Insuln.Pen) 0 unit SC PRN PRN; Protocol PRN Reason: NOT SPECIFIED Lactulose (Lactulose 20 Gm/30 Ml Udc) 30 gm PO TID [facility] Last Admin: 08/22/20 15:30 Dose: 30 gm Documented by: Levothyroxine Sodium (Levothyroxine 75 Mcg Tablet) 75 mcg PO DAILY@0600 [facility] Last Admin: 08/22/20 05:09 Dose: 75 mcg Documented by: Midodrine (Midodrine Hcl 5 Mg Tablet) 10 mg PO TID [facility] Last Admin: 08/22/20 15:31 Dose: 10 mg Documented by: Nystatin (Nystatin Powder 15gm Bottle) 1 applic TOPICAL BID [facility]; Protocol Last Admin: 08/22/20 09:08 Dose: 1 applicatio Documented by: Ondansetron HCl (Ondansetron 4 Mg/2 Ml Vial) 4 mg IV Q8H PRN PRN PRN Reason: NAUSEA Last Admin: 08/11/20 13:13 Dose: 4 mg Documented by: Pantoprazole Sodium (Pantoprazole Sodium 40 Mg Tablet) 40 mg PO BID [facility] Polyethylene Glycol (Polyethylene Glycol 3350 17 Gm Packet) 17 gm PO DAILY [facility] Last Admin: 08/22/20 09:08 Dose: 17 gm Documented by: Rifaximin (Rifaximin 550 Mg Tablet) 550 mg PO BID [facility] Last Admin: 08/22/20 09:10 Dose: 550 mg Documented by: Sodium Chloride (0.9% Saline Lock 10 Ml Syringe) 10 - 40 ml IV UD PRN PRN Reason: SALINE FLUSH Last Admin: 08/21/20 17:00 Dose: 10 ml Documented by: Addendum: Dr. Oquendo I personally examined the patient and reviewed the chart. I agree with the above. 60-year-old female initially presented with acute hypoxic respiratory failure secondary to healthcare associated pneumonia as well as an MXA. She had a dialysis catheter placed yesterday and will be started on dialysis. She is extremely weak, and she is status post right AKA therefore with PT/OT evaluation, she would be criteria for transfer to a group home facility for rehab. They are okay with her going over the weekend if able on dialysis. She has completed course of antibiotics for both her pneumonia as well as her Klebsiella UTI. 08/21/2020: Still about the same as she was yesterday. No issues overnight however she just feels miserable overall. Continue with dialysis as her mental status is continuing to improve she has completed antibiotic course and therefore since she completed dialysis today will hopefully be able to discharge her tomorrow and have outpatient dialysis set up from the group home facility. 08/22/2020: Still very apathetic. She has a fair prognosis given now that she needs to be on dialysis with all of her other complications in her history. She is Covid negative and she has been treated for her UTI as well as her pneumonia. She remains afebrile and her hemoglobin went up on the day of discharge and her creatinine as well as her BUN improved. She does have outpatient dialysis set up and therefore she is stable for discharge to the group home facility today. Would recommend close monitoring of her electrolytes and her hemoglobin in the short-term. Her blood pressure is stable now that she is off the Lasix and receiving dialysis. Can discontinue her midodrine on discharge. Inpatient E&M: [id number] Disch Hosp
--- NOTE | 2020-08-22 14:19 | PCM.PN.REN ---
Patient Problems: Active and Suspected Problems (Last Reviewed 08/09/20 @ 19:[address] Aston Casiano, DO) Anemia (Acute) MAX (acute kidney injury) (Acute) Healthcare-associated pneumonia (Acute) Hyperkalemia (Acute) Acute respiratory failure with hypoxia (Acute) Subjective: no new complaints - Physical Exam Vitals/I&O's: Vital Signs Temp Pulse Resp BP Pulse Ox 98.0 F 79 18 140/68 H 96 08/22/20 09:00 08/22/20 09:00 08/22/20 09:00 08/22/20 09:00 08/22/20 09:00 Oxygen Flow Rate (L/min) 2 Oxygen Delivery Method Nasal Cannula Weight: 175.9 kg Body Mass Index (BMI) 51.1 Finger Stick Blood Glucose 77 Intake and Output for Last 24 Hours 08/20/20 08/21/20 08/22/20 23:59 23:59 23:59 Intake Total 380 / 380 287.25 / 317.25 140 / 140 Output Total 3100 / 3100 575 / 725 300 / 300 Balance -2720 / -2720 -287.75 / -407.75 -160 / -160 General: Alert, Oriented x3, Cooperative HEENT: Atraumatic, PERRLA, EOMI, Normocephalic Neck: Supple, No JVD, Negative Carotid Bruits Lungs: Clear to auscultation, Normal air movement Cardiovascular: Regular rate, No murmurs Abdomen: Bowel Sounds Present, Soft, Non Tender Extremities: No edema, Capillary Refill Less than 3 Seconds Skin: No rashes, No breakdown Musculoskeletal: No Tenderness to Palpation of Joints or Extremities Neurological: Cranial nerves II-XII grossly intact Psych/Mental Status: Normal Affect, Appropriate Microbiology Past 72 Hours 08/17/20 01:07 Sputum, Expectorated/Coughed Gram Stain - Final 08/17/20 01:07 Sputum, Expectorated/Coughed Respiratory Culture - Final Presumptive C albicans Laboratory Results 08/22/20 04:30: WBC 5.7, RBC 3.23 L, Hgb 9.3 L, Hct 32.1 L, MCV 99.4 H, MCH 28.8, MCHC 29.0 L, RDW Std Deviation 81.1 H, RDW Coeff of Yoandy 22.5 H, Plt Count 108 L, MPV 11.8, Differential Comment COMMENT 08/22/20 04:35: Sodium 138, Potassium 3.8, Chloride 105, Carbon Dioxide 25.0, Anion Gap 8, BUN 57 H, Creatinine 2.06 H, Estim Creat Clear Calc 35.00, Est GFR (MDRD) Af Amer 32 L, Est GFR (MDRD) Non-Af 26 L, BUN/Creatinine Ratio 27.7 H, Glucose 95, Calcium 8.4 L Current Medications Acetaminophen (Acetaminophen 325 Mg Tablet) 650 mg PO Q6H PRN PRN PRN Reason: Pain Score 1-10/Temp > 100.7 F Last Admin: 08/22/20 09:15 Dose: 650 mg Documented by: Al Hydroxide/Mg Hydroxide (Mag Hydrox/Al Hydrox/Simeth 30 Ml Udc) 30 ml PO Q6H PRN PRN PRN Reason: Gastric Burning Albuterol Sulfate (Albuterol 2.5 Mg/3 Ml Vial.Neb.) 2.5 mg INHALATION Q2H PRN PRN PRN Reason: SHORTNESS OF BREATH Albuterol/Ipratropium (Ipratropium/Albuterol Sulfate 3 Ml Ampul.Neb) 3 ml INHALATION Q4H.RT [facility] Last Admin: 08/19/20 23:08 Dose: 3 ml Documented by: Allopurinol (Allopurinol 300 Mg Tablet) 300 mg PO DAILY [facility] Last Admin: 08/22/20 09:10 Dose: 300 mg Documented by: Aspirin (Aspirin 81 Mg Tab.Chew) 81 mg PO DAILY@0800 [facility] Last Admin: 08/15/20 10:06 Dose: 81 mg Documented by: Atorvastatin Calcium (Atorvastatin Calcium 40 Mg Tablet) 40 mg PO QHS [facility] Last Admin: 08/21/20 20:20 Dose: 40 mg Documented by: Bupropion HCl (Bupropion (Xl) 150 Mg Tablet.Xl) 150 mg PO DAILY [facility] Last Admin: 08/22/20 09:09 Dose: 150 mg Documented by: Calamine/Phenol (Menthol/Lanolin/Calamine/Znox 113 Gm Tube) 1 applic TOPICAL BID [facility]; Protocol Last Admin: 08/22/20 11:22 Dose: Not Given Documented by: Docusate Sodium (Docusate Sodium 100 Mg Capsule) 200 mg PO BID [facility] Last Admin: 08/22/20 09:07 Dose: 200 mg Documented by: Sodium Chloride () 250 mls @ 15 mls/hr IV .[id number] PRN PRN Reason: Additional IVPB Infusion Last Infusion: 08/21/20 22:06 Dose: 0 mls/hr Documented by: Insulin Human Lispro (Insulin Lispro 100 Unit/Ml Insuln.Pen) 0 unit SC PRN PRN; Protocol PRN Reason: NOT SPECIFIED Lactulose (Lactulose 20 Gm/30 Ml Udc) 30 gm PO TID [facility] Last Admin: 08/22/20 05:09 Dose: Not Given Documented by: Levothyroxine Sodium (Levothyroxine 75 Mcg Tablet) 75 mcg PO DAILY@0600 [facility] Last Admin: 08/22/20 05:09 Dose: 75 mcg Documented by: Midodrine (Midodrine Hcl 5 Mg Tablet) 10 mg PO TID [facility] Last Admin: 08/22/20 05:09 Dose: 10 mg Documented by: Nystatin (Nystatin Powder 15gm Bottle) 1 applic TOPICAL BID [facility]; Protocol Last Admin: 08/22/20 09:08 Dose: 1 applicatio Documented by: Ondansetron HCl (Ondansetron 4 Mg/2 Ml Vial) 4 mg IV Q8H PRN PRN PRN Reason: NAUSEA Last Admin: 08/11/20 13:13 Dose: 4 mg Documented by: Pantoprazole Sodium (Pantoprazole Sodium 40 Mg Tablet) 40 mg PO BID [facility] Polyethylene Glycol (Polyethylene Glycol 3350 17 Gm Packet) 17 gm PO DAILY [facility] Last Admin: 08/22/20 09:08 Dose: 17 gm Documented by: Rifaximin (Rifaximin 550 Mg Tablet) 550 mg PO BID [facility] Last Admin: 08/22/20 09:10 Dose: 550 mg Documented by: Sodium Chloride (0.9% Saline Lock 10 Ml Syringe) 10 - 40 ml IV UD PRN PRN Reason: SALINE FLUSH Last Admin: 08/21/20 17:00 Dose: 10 ml Documented by: Medical Necessity - Tobacco Use Smoking Status: Former smoker Assessment/Plan All Active Problems (Last Reviewed 08/09/20 @ 19:[address] Aston Casiano, DO) Anemia (Acute) MAX (acute kidney injury) (Acute) Healthcare-associated pneumonia (Acute) Hyperkalemia (Acute) Acute respiratory failure with hypoxia (Acute) Infestation by bed bug (Resolved) 1. Acute kidney injury on chronic kidney disease stage 4.Baseline SCr was around 2.5 mg/dL MAX is likely prerenal from cardiorenal syndrome. FEUrea was 14% on 08/12/20. I reviewed echocardiogram from 2017. Patient has severely reduced right ventricle function with mildly reduced left ventricle function and moderate LVH. right heart failure is likely reason of CRS and fluid overload HD started 08/19 for uremia and fluid overload 3rd session today has a IJ TDC has a confirmed TTS spot at [facility] 2. Anemia. will give RUPERTO with HD 3- change in mental status fro hepatic encephalopathy and uremia Improved dc today dc midodrine .
[2020-08-22] MEDS: Lactulose 20 GM/30 ML UDC 30 GM PO (15:30)
[2020-08-22 15:45] VITALS: BP 167/80; PULSE 79; RESP 20; TEMP 36.6; O2SAT 93
--- NOTE | 2020-08-22 16:20 | NURSING ---
Jackie from [facility]osp[facility] called to inform us they cannot formally admit her until a guardian is in place. She called [facility] and informed them of the same.
[2020-08-22 16:25] VITALS: BP 167/80; PULSE 79; RESP 20; TEMP 36.4; O2SAT 93
--- NOTE | 2020-08-22 17:33 | NURSING ---
Report called to [facility]. Report given to [facility]. IV d/cd. Vitals done. Pt leaving with ortiz intact per verbal order from GLASS GRINDERZuleyka. A&O x2 self and place.
--- NOTE | 2020-08-23 09:20 | CASEMGMT ---
NYDIA called Tatyanaadela Baptiste at [facility] and let her know that patient was discharged back to [place] yesterday. NYDIA told her she was started on dialysis and that two physicians gave the consent. NYDIA told her patient wanted Debo Mac to be her Healthcare POA. Tatyana said she cannot do this as she is patient's aide and she cannot do both. She will talk with Debo. She will also follow up with [facility] regarding patient and if she is not cleared up they may need to pursue getting patient a guardian. NYDIA faxed d/c information to Tatyana. Ly CHUNG MSW
== END 2020-08-22 19:30 | disposition skilled nursing facility (03) | DRG 193 ==
LOC: ED 13:41 → PCU 19:41
PROVIDERS: Anesthesiology; Hospitalist; Internal Medicine; Internal Medicine Nephrology; Nurse Practitioner Family; Physician Assistant; Surgery; Emergency Provider Emergency Medicine; PCP Internal Medicine; Visit Provider Family Medicine
PROC: 0JH63XZ Insertion of Tunneled Vascular Access Device into Chest Subcutaneous Tissue and Fascia, Percutaneous Approach (ICD-10-PCS; principal; 2020-08-19 13:15)
DX: J18.9 Pneumonia, unspecified organism (principal); K72.00 Acute and subacute hepatic failure without coma; J96.01 Acute respiratory failure with hypoxia; G93.41 Metabolic encephalopathy; I50.23 Acute on chronic systolic (congestive) heart failure; I13.0 Hypertensive heart and chronic kidney disease with heart failure and stage 1 through stage 4 chronic kidney disease, or unspecified chronic kidney disease; N18.4 Chronic kidney disease, stage 4 (severe); J44.0 Chronic obstructive pulmonary disease with (acute) lower respiratory infection; N17.9 Acute kidney failure, unspecified; Z68.43 Body mass index [BMI] 50.0-59.9, adult; N39.0 Urinary tract infection, site not specified; E87.1 Hypo-osmolality and hyponatremia; D62 Acute posthemorrhagic anemia; K92.2 Gastrointestinal hemorrhage, unspecified; R18.8 Other ascites; K74.60 Unspecified cirrhosis of liver; B96.1 Klebsiella pneumoniae [K. pneumoniae] as the cause of diseases classified elsewhere; Y95 Nosocomial condition; E11.22 Type 2 diabetes mellitus with diabetic chronic kidney disease; E87.5 Hyperkalemia; I95.9 Hypotension, unspecified; I48.0 Paroxysmal atrial fibrillation; I25.5 Ischemic cardiomyopathy; R79.1 Abnormal coagulation profile; I25.10 Atherosclerotic heart disease of native coronary artery without angina pectoris; I27.29 Other secondary pulmonary hypertension; E03.9 Hypothyroidism, unspecified; E78.5 Hyperlipidemia, unspecified; M79.604 Pain in right leg; K21.9 Gastro-esophageal reflux disease without esophagitis; F32.9 Major depressive disorder, single episode, unspecified; F41.9 Anxiety disorder, unspecified; E66.01 Morbid (severe) obesity due to excess calories; Z79.4 Long term (current) use of insulin; Z79.82 Long term (current) use of aspirin; Z79.01 Long term (current) use of anticoagulants; Z79.899 Other long term (current) drug therapy; Z78.0 Asymptomatic menopausal state; Z86.73 Personal history of transient ischemic attack (TIA), and cerebral infarction without residual deficits; Z86.718 Personal history of other venous thrombosis and embolism; Z87.891 Personal history of nicotine dependence; Z89.611 Acquired absence of right leg above knee; Z95.0 Presence of cardiac pacemaker; Z95.5 Presence of coronary angioplasty implant and graft
CPT/HCPCS: 36415; 36600; 51702; 70450; 71045; 71046; 76000; 76705; 76770; 80048; 80053; 80069; 80202; 81001; 82140; 82274; 82570; 82728; 82803; 82962; 83036; 83540; 83550; 83605; 83880; 84439; 84443; 84481; 84484; 84540; 85025; 85027; 85610; 85730; 86900; 86901; 87040; 87070; 87077; 87086; 87088; 87186; 87205; 87340; 87426; 87449; 87633; 87635; 90937; 92526; 92610; 93005; 93971; 94002; 94640; 94667; 94668; 95819; 97110; 97162; 97166; 97530; 97535; 97802; 99285; J7030; J7040; J7050; P9017; A4216; C1750; G0257; J0610; J1940; J2405; J2916; Q5106; U0002

== ENCOUNTER 2020-12-07 10:31 | Day surgery (SDC) | payer MEDICARE, MEDICAID, SELFPAY ==
[2020-08-19 11:37] VITALS: BMI 51.1
[2020-12-07] VITALS (12 sets, daily range): BP systolic 91–140; BP diastolic 60–80; PULSE 75–82; RESP 16–18; TEMP 36.2–36.9; O2SAT 91–100; BMI 27.9
--- NOTE | 2020-12-07 10:49 | ED.VIS.GEN ---
History of Present Illness Chief Complaint: Wound Detail of Chief Complaint: Catheter problem Informant: Patient Narrative: Patient has a tunneled catheter in her right upper chest for dialysis. She last was dialyzed on Sunday without any difficulty, today is Sunday. She went to dialysis to get her scheduled session today and it was noticed by staff that her catheter had been pulled out although the end of it is still in the skin. She has noticed no bleeding, pain, dyspnea. The patient has no idea how it was inadvertently partially removed. As result she was sent here. Capacity - Capacity Assessment Tool Can the patient make a choice & communicate that choice?: Yes Can the patient understand benefits, risks and alternatives?: Yes Can the patient make a logical, rational choice?: Yes Is the choice the patient makes consistent w/ their values?: Yes Is there an impending, emergent risk to the patient?: Yes Does the patient have an Advance Directive?: No Is there a Surrogate Available?: No i.e. HCPOA: No i.e. close relative (spouse, child, parent, sibling)?: No - Past Medical History (1) Anemia Status: Chronic (2) Asthma Status: Chronic (3) Atrial fibrillation Status: Chronic (4) COPD (chronic obstructive pulmonary disease) Status: Chronic (5) CVA (cerebral vascular accident) Status: Chronic Comment: 2002 (6) Chronic renal disease, stage V Status: Chronic (7) Coronary artery disease Status: Chronic (8) Diabetes mellitus Status: Chronic Comment: type II (9) HLD (hyperlipidemia) Status: Chronic (10) Heart failure Status: Chronic (11) History of DVT of lower extremity Status: Chronic (12) Hypothyroidism Status: Chronic (13) Ischemic cardiomyopathy Status: Chronic Past Medical History - Allergies and Home Meds Allergies/Adverse Reactions: Allergies codeine Allergy (Verified 07/07/20 14:29) Rash latex Allergy (Verified 07/07/20 14:29) Itching Penicillins Allergy (Verified 07/07/20 14:29) Swelling dexamethasone [From Maxidex] Adverse Reaction (Verified 07/07/20 14:29) Unknown iodine Adverse Reaction (Verified 07/07/20 14:29) Itching morphine Adverse Reaction (Verified 07/07/20 14:29) Other contrast dye Allergy (Uncoded 07/07/20 14:29) GI upset GI upset Primary Care Physician: Leslie Bird MD [Primary Care Provider] - Surgical History: adenoidectomy, cholecystectomy, hysterectomy, tonsillectomy, - - Right [id number] amputation, panniculectomy, pacemaker placement, left leg vein grafting/bypass. Smoking Status: Former smoker - Family History Paternal Family History: Reports: - Maternal Family History: Reports: Diabetes, Heart Disease, Hypertension Review of Systems General: Denies: Chills, Fever, Sweats Cardiovascular: Denies: Chest pain, Palpitations Respiratory: Denies: Dyspnea, Cough, Dyspnea on exertion Gastrointestinal: Denies: Abdominal pain, Nausea, Vomiting, Diarrhea, Melena, Hematochezia Musculoskeletal: Denies: Neck pain, Back pain Skin: Denies: Rash, Wounds Physical Exam Vital Signs/Narrative: Vital Signs Temp Pulse Resp BP Pulse Ox 12/07/20 10:34 98.4 F 76 16 121/69 H 92 12/07/20 10:32 98.4 F 76 16 121/69 H 92 Inital Vital Signs reviewed: Yes General: Well nourished, Well developed, No Acute Distress Head: Normocephalic, Atraumatic Eyes: Perrl, EOMI ENT: Moist mucous membranes, No rhinorrhea Neck: Supple, Nontender Cardiovascular: Regular rate, Regular rhythm, No murmurs Respiratory: No distress, CTA bilaterally, Chest nontender, - - Tunneled dialysis catheter right upper chest is within the chest wall, the site is benign, however the catheter suture is broken and the part that should be hubbed against the chest wall is approximately 8 cm removed. No bleeding from the site. Abdomen: Soft, Nontender, Nondistended Skin: Normal color, No rash, No Trauma Neurological: Alert, Oriented x3 Psychological: Normal affect, Normal Mood Diagnostic/Tx/Re-eval Laboratory Tests 12/07/20 12/07/20 12/07/20 Range/Units 12:10 12:10 12:10 WBC 9.1 (4.4-11.0) K/mm3 RBC 2.83 L (4.2-5.4) M/mm3 Hgb 9.3 L (12.0-15.0) g/dL Hct 30.2 L (37-47) % MCV 106.7 H (81-99) fL MCH 32.9 H (27.0-32.0) pg MCHC 30.8 L (32-36) g/dL RDW Std Deviation 70.7 H (35.1-43.9) fl RDW Coeff of Yoandy 18.4 H (11.6-14.6) % Plt Count 177 (150-450) K/mm3 MPV 10.2 (6.2-12.0) fl Immature Gran % (Auto) 0.400 (0.0-0.9) % Neut % (Auto) 78.9 H (47-70) % Lymph % (Auto) 12.0 L (19-41) % Shelby % (Auto) 5.9 (0-10) % Eos % (Auto) 2.5 (0-5) % Baso % (Auto) 0.3 (0-1) % Absolute Neuts (auto) 7.1 (2.0-7.7) X10^3/uL Absolute Lymphs (auto) 1.09 (0.83-4.51) X10^3/uL Nucleated RBC % 0 (0-5) % Anisocytosis 1+ PT 29.1 H (11.7-14.9) SECONDS INR 2.8 Sodium 129 L (136-145) mmol/L Potassium 4.2 (3.5-5.1) mmol/L Chloride 91 L (98-107) mmol/L Carbon Dioxide 29.0 (21.0-32.0) mmol/L Anion Gap 9 (5-15) BUN 60 H (7-18) mg/dL Creatinine 3.78 H (0.55-1.02) mg/dL Estim Creat Clear Calc 19.07 ml/min Est GFR (MDRD) Af Amer 16 L (>60) mL/min Est GFR (MDRD) Non-Af 13 L (>60) mL/min BUN/Creatinine Ratio 15.9 (10-20) RATIO Glucose 170 H (74-106) mg/dL Calcium 10.4 H (8.5-10.1) mg/dL - Medical Decision Making I discussed with Dr. Ceron, who initially put her catheter in for dialysis, and would be willing to do the replacement however there were concerns about her ability to provide consent when he saw her initially, during which apparently she was very ill and altered. Two physicians made evaluations that dialysis was in her best interest, and based on that she got the catheter and has been getting dialysis. She has no family, power of advertising campaign manager, I had nurses discussed with the correction and they confirmed that they were not able to get a healthcare surrogate yet. I discussed with the patient. She understands that she needs dialysis in order to survive, and she understands that she needs the catheter in order to continue getting dialysis which she is interested in so that she can continue to survive. She seems to have the capacity to make this decision, and understand the ramifications, as well as the risks. She does want the catheter replaced so that she can continue to get dialysis. I think the patient has the capacity to give this consent. After discussing with a different contact at the correction, the patient indeed does have a POA, which in my opinion is not necessary to contact at this time given the above. Surgery physician investigative assistant also evaluated the patient and was in agreement with my evaluation. I discussed with Dr. Ceron, he is comfortable taking the patient to same-day surgery, we will observe her here until she is ready. He did request INR, that is 2.8, which he is okay with, and asked that we remove the old catheter, which was done. Procedures Procedure(s): Malfunction dialysis catheter removal --catheter was only approximately 3 cm deep to the surface of the skin and clearly outside of the vessel. I manually removed it without difficulty, there was no pain or bleeding afterwards. Dressed with a sterile dry dressing. ED Disposition - Plan for ED Patient: Disposition: Home or Assisted Living Diagnosis: Complications, dialysis, catheter, mechanical Referrals: Leslie Bird MD [Primary Care Provider] - Additional Instructions: Pt to be taken to same day surgery from ED for outpatient procedure.
--- NOTE | 2020-12-07 11:52 | PCM.HP.STD ---
Problem List (1) Problem with dialysis access Status: Acute History of Present Illness Date of Admission: 12/07/20 Chief Complaint: Malfunction of right chest tunneled dialysis catheter. Chest catheter pulled out. The patient is a 60 year old F who presented to the ED due to right chest tunneled dialysis catheter pulled out approximately [address] Ceron placed the right chest tunneled catheter in August 2020. Patient stated she had dialysis on Sunday without any issues. She stated going to dialysis today and noted that her tunneled chest catheters were pulled out of the skin. Patient denies pain/discomfort. She is oriented x 3 today, which is an improvement since the last time I saw her. She noted having a left chest defibrillator/pacemaker. She denies chest pain or shortness of breath. She resides at [facility]. Past Medical History Past Medical History (Chronic Problems): Chronic Problems (Last Reviewed 12/07/20 @ 12:05 by Nellie MONDRAGON, PA-C) Heart failure (Chronic) Anemia (Chronic) Thrombocytopenia (Chronic) CKD (chronic kidney disease) stage 3, GFR 30-59 ml/min (Chronic) Chronic renal disease, stage V (Chronic) CRD (chronic renal disease), stage IV (Chronic) Asthma (Chronic) CVA (cerebral vascular accident) (Chronic) 2001 COPD (chronic obstructive pulmonary disease) (Chronic) History of PTCA (Chronic) Mid LAD bare metal stent 07/20/2002. RCA Bare metal stent 07/02/2006 History of permanent cardiac pacemaker placement (Chronic) 09/08/2013,[facility]. Dr. 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) History of tonsillectomy (Chronic) H/O: hysterectomy (Chronic) History of cholecystectomy (Chronic) H/O adenoidectomy (Chronic) HLD (hyperlipidemia) (Chronic) Coronary artery disease (Chronic) Hypothyroidism (Chronic) Atrial fibrillation (Chronic) Ischemic cardiomyopathy (Chronic) Diabetes mellitus (Chronic) type II Morbid obesity (Chronic) History of DVT of lower extremity (Chronic) Tobacco abuse (Chronic) Medical History: Medical History (Last Reviewed 12/07/20 @ 12:05 by Nellie MONDRAGON, PA-C) Asthma (Chronic) J45.909 CVA (cerebral vascular accident) (Chronic) I63.9 2001 COPD (chronic obstructive pulmonary disease) (Chronic) J44.9 Above knee amputation of right lower extremity (Chronic) Z89.611 HLD (hyperlipidemia) (Chronic) E78.5 Coronary artery disease (Chronic) I25.10 Hypothyroidism (Chronic) E03.9 Atrial fibrillation (Chronic) I48.91 Ischemic cardiomyopathy (Chronic) I25.5 Diabetes mellitus (Chronic) E11.9 type II Morbid obesity (Chronic) E66.01 Allergies codeine Allergy (Verified 07/07/20 14:29) Rash latex Allergy (Verified 07/07/20 14:29) Itching Penicillins Allergy (Verified 07/07/20 14:29) Swelling dexamethasone [From Maxidex] Adverse Reaction (Verified 07/07/20 14:29) Unknown iodine Adverse Reaction (Verified 07/07/20 14:29) Itching morphine Adverse Reaction (Verified 07/07/20 14:29) Other contrast dye Allergy (Uncoded 07/07/20 14:29) GI upset GI upset Home Medications: Ambulatory Orders Medication Instructions Recorded Nitroglycerin [Nitrostat] 0.4 mg SL PRN PRN 07/19/13 Atorvastatin Calcium [Lipitor] 40 mg PO QHS 06/02/15 Aspirin [Aspirin, Baby] 81 mg PO DAILY@0800 08/15/17 Ondansetron [Zofran Odt] 4 mg PO Q8H PRN PRN #10 tab 03/22/19 Allopurinol 300 mg PO DAILY 11/04/19 Bupropion HCl [Bupropion Xl] 150 mg PO DAILY 07/07/20 Bupropion HCl [Bupropion Xl] 300 mg PO DAILY 07/07/20 Acetaminophen [Tylenol Tablet] 650 mg PO Q6H PRN PRN tab 07/09/20 Mag Hydrox/Al Hydrox/Simeth 30 ml PO Q6H PRN PRN udc 07/09/20 [Mylanta II] Docusate Sodium [Colace] 200 mg PO BID 08/09/20 Insulin Lispro [Humalog KwikPen] See Protocol SQ ACHS 08/09/20 Multivitamin 1 tab PO DAILY 08/09/20 Nystatin Powder [Mycostatin Powder] 1 applic TOPICAL BID 08/09/20 Nystatin/Triamcin Cream [Mycolog] 1 applic TOPICAL BID 08/09/20 Polyethylene Glycol 3350 [Miralax] 17 gm PO DAILY 08/09/20 Warfarin Sodium 4 mg PO DAILY 08/09/20 Lactulose [Chronulac] 30 gm PO TID udc 08/22/20 Levothyroxine [Synthroid] 75 mcg PO DAILY@0600 tab 08/22/20 Pantoprazole Sodium [Protonix] 40 mg PO BID tab 08/22/20 Rifaximin [Xifaxan] 550 mg PO BID tab 08/22/20 Surgical History: Surgical History (Last Reviewed 12/07/20 @ 12:05 by JOSEPH HernandezC) History of PTCA (Chronic) Z98.61 Mid LAD bare metal stent 07/20/2002. RCA Bare metal stent 07/02/2006 History of permanent cardiac pacemaker placement (Chronic) Z95.0 09/08/2013,[facility] History of tonsillectomy (Chronic) Z90.89 H/O: hysterectomy (Chronic) Z90.710 History of cholecystectomy (Chronic) Z90.49 H/O adenoidectomy (Chronic) Z90.89 Surgical History: adenoidectomy, cholecystectomy, hysterectomy, tonsillectomy, - - Right [id number] amputation, panniculectomy, pacemaker placement, left leg vein grafting/bypass. 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 Smoking Status: Former smoker - *Family History Maternal History Items: Diabetes, Heart Disease, Hypertension Paternal History Items: - Review of Systems Constitutional: Denies: Chills, Fever, Weight Change HEENT: Denies: Head Aches, Sinus Congestion, Sinus Drainage Cardiovascular: Denies: Chest Pain, Palpitations Respiratory: Denies: Cough, Shortness of breath at rest, Sputum production Gastrointestinal: Denies: Abdominal Pain, Nausea, Vomiting Genitourinary: Denies: Dysuria Musculoskeletal: Denies: Joint Pain, Joint Tenderness Skin: Denies: Rash, Wounds Neurological: Denies: Numbness, Tingling, Focal weakness Psychiatric: Denies: Anxiety, Depression, Homicidal Ideations, Suicidal Ideations Hematologic/ Lymphatic: Denies: Easy Bruising, Easy Bleeding VTE Information - Inpt Only VTE Present on Admission: Yes VTE Mechan Device Prophylaxis: SCD's Patient Problems: Active and Suspected Problems (Last Reviewed 12/07/20 @ 12:05 by Nellie MONDRAGON PAThierryC) Complications, dialysis, catheter, mechanical (Acute) Problem with dialysis access (Acute) - Physical Exam Vitals/I&O's: Vital Signs Temp Pulse Resp BP Pulse Ox 98.4 F 76 16 121/69 H 92 12/07/20 10:34 12/07/20 10:34 12/07/20 10:34 12/07/20 10:34 12/07/20 10:34 Oxygen Delivery Method Room Air Weight: 211 lb 13.828 oz Body Mass Index (BMI) 27.9 Finger Stick Blood Glucose 77 General: Alert, Oriented x3, Cooperative HEENT: Atraumatic, PERRLA, EOMI, Normocephalic Neck: Supple, No JVD, Negative Carotid Bruits Lungs: Clear to auscultation, Normal air movement Cardiovascular: Regular rate, No murmurs Abdomen: Bowel Sounds Present, Soft, Non Tender Extremities: No edema, Capillary Refill Less than 3 Seconds, - - right above the knee amputation Skin: No rashes, No breakdown, - - Right chest- catheter out approximately 8 cm from the skin Musculoskeletal: No Tenderness to Palpation of Joints or Extremities Neurological: Neuro grossly intact Psych/Mental Status: Normal Affect, Appropriate Current Medications Clindamycin Phosphate 900 mg/ (Dextrose) 106 mls @ 150 mls/hr IV PREOP ONE Stop: 12/07/20 12:29 Assessment/Plan All Active Problems (Last Reviewed 12/07/20 @ 12:05 by Nellie MONDRAGON PA-C) MAX (acute kidney injury) (Acute) Healthcare-associated pneumonia (Acute) Hyperkalemia (Acute) Acute respiratory failure with hypoxia (Acute) Complications, dialysis, catheter, mechanical (Acute) Problem with dialysis access (Acute) Infestation by bed bug (Resolved) I am evaluating this patient in conjunction with Dr. Ceron. He will independently evaluate this patient. Impression: Problem with dialysis access. Chest catheter dislodged approximately 8 cm out of skin. Plan: I have discussed this patient with Dr. Ceron. Dr. Ceron will plan to perform a removal of the right tunneled chest catheter and replacement of the right chest tunneled dialysis catheter. Procedure details, risks and benefits have been explained to the patient. A follow-up chest x-ray will be performed after the procedure. Patient has had the opportunity to ask and have questions answered. Patient verbally agrees to proceed with the proposed procedure. Plan to discharge patient back to residential following the procedure. Thank you for allowing us to participate in this patient's care. Office Visits / Consults: [id number] OP Consult L2 - Please review charge
--- NOTE | 2020-12-07 12:15 | CM.ED ---
SOCIAL WORK Reason for Referral: Advanced Directives Met with patient in room to discuss Advanced Directives. Patient A&OX3. Patient reports is from [facility]. Patient reports completed Advanced Directives at either [facility] or [facility]. Patient states HPOA is Debo Mac. Patient states plan to return to [facility] upon discharge. Call to Susana with [facility]. Susana reports Advanced Directives were completed and will fax over copy of HPOA. Call to [facility] to speak with patient's case liner, Tatyana Baptiste to update on patient's ER visit. Tatyana states Bruna is patient's HPOA. Tatyana reports patient and Bruna are aware that if patient ever to leave the intermediate and if Bruna wishes to be patient's home health aide, she will have to relinquish HPOA at that time. Tatyana requesting to speak with patient as she has been unable to reach her at [facility]. Call facilitated to patient at this time. Dr. Magaña updated on the above. Copy of HPOA received and will be added to medical record. Shawanda Lu, PILLING MACHINE OPERATOR, DIGITAL PRE PRESS OPERATOR
[2020-12-07 12:22] LABS: Absolute Lymphocyte Count 1.09 X10^3/uL (0.83-4.51); Absolute Neutrophil Count 7.1 X10^3/uL (2.0-7.7); Basophil# 0.03 X10^3/uL; Basophil% 0.3 % (0-1); Eosinophil# 0.23 X10^3/uL; Eosinophils% 2.5 % (0-5); Hematocrit 30.2 % (37-47); Hemoglobin 9.3 g/dL (12.0-15.0); Lymphocyte # 1.09 X10^3/ul (4.0); Mean Corp Hgb Conc 30.8 g/dL (32-36); Mean Corpuscular Hgb 32.9 pg (27.0-32.0); Mean Corpuscular Volume 106.7 fL (81-99); Mean Platelet Vol. 10.2 fl (6.2-12.0); Monocyte# 0.53 X10^3/uL; Monocyte% 5.9 % (0-10); NRBC Flagged by Analyzer 0 % (0-5); Neutrophil # 7.13 X10^3/uL (2.7-7.7); Neutrophil % 78.9 % (47-70); POSITIVE MORPHOLOGY YES; Platelet Count 177 K/mm3 (150-450); RBC Distribution Width CV 18.4 % (11.6-14.6); RBC Distribution Width SD 70.7 fl (35.1-43.9); Red Blood Count 2.83 M/mm3 (4.2-5.4); White Blood Count 9.1 K/mm3 (4.4-11.0)
[2020-12-07 12:25] LABS: Differential Indicated SCAN CRITERIA MET
[2020-12-07 12:33] LABS: Anion Gap 9 (5-15); BUN 60 mg/dL (7-18); BUN/Creat Ratio 15.9 RATIO (10-20); Calcium,Total 10.4 mg/dL (8.5-10.1); Chloride 91 mmol/L (98-107); Creatinine, Serum 3.78 mg/dL (0.55-1.02); EST Glomerular Filtration Rate 13 mL/min (>60); Est Glom Filt Rate - Afr Amer 16 mL/min (>60); Estimated Creatinine Clearance 19.07 ml/min; Glucose 170 mg/dL (74-106); Potassium 4.2 mmol/L (3.5-5.1); Sodium Level 129 mmol/L (136-145)
[2020-12-07 12:49] LABS: Anisocytosis 1+; International Normalized Ratio 2.8; Prothrombin Time (Protime)PT. 29.1 SECONDS (11.7-14.9)
--- NOTE | 2020-12-07 13:57 | NURSING ---
Called [facility] to see if they were ready for the pt. Spoke kiearn/ Jose Edurado who gives the ok for pt to come down to room 5.
[2020-12-07] MEDS: Bupivacaine Mpf 0.5% 30 ML VIAL (15:50)
[2020-12-07] MEDS: Lidocaine 1% (20 ml mdv) 20 ML Vial (15:50)
[2020-12-07] MEDS: Heparin 10,000 UNITS/10 ML Vial 10000 UNITS (16:00)
--- NOTE | 2020-12-07 16:12 | PCM.OPRPT ---
Problem List (1) Complications, dialysis, catheter, mechanical Status: Acute Qualifiers: Encounter type: initial encounter Qualified Code(s): T82.49XA - Other complication of vascular dialysis catheter, initial encounter Report of Operation Date of Procedure: 12/07/20 Pre-Operative Diagnosis: Problem with dialysis access, accidentally removed right internal jugular tunneled dialysis catheter Post-Operative Diagnosis: Same Surgery/Procedure Performed:: Right internal jugular tunneled dialysis catheter placement, palindrome 19 cm precurved. Reference [id number]. Lot #[id number] Description of Surgical Findings:: Time out and informed consent was obtained. 60-year-old female was taken to the operating room placed upon the table underwent monitored anesthesia care. Clindamycin 900 mg were given intravenously preoperatively. The right neck was sterilely prepped and draped. 1% lidocaine mixed 50-50 with 0.5% Marcaine was used as a local anesthetic. A total of 13 cc was used. Ultrasound was performed. Using a 30-gauge needle local was instilled under ultrasound guidance. A micropuncture needle was used to gain access to the right internal jugular vein followed by Seldinger wire advancement. Micropuncture sheath inserted. 035 J-wire was inserted. Fluoroscopy demonstrated good positioning. Local was instilled down upon the right chest wall. Slightly superior and medial to the previous exit site a small incision was created in the 19 cm precurved catheter was advanced from the chest to the neck. Then serial dilatation performed at the neck. The sheath dilator was inserted. Fluoroscopy demonstrated good positioning. The wire and dilator were removed. The catheter was advanced through the sheath. The sheath was split and the catheter was positioned to be close to the atrial SVC junction. The catheter was secured to skin with interrupted 3-0 nylon. The neck site was closed with interrupted 5-0 Vicryl subdermal stitch. Surgicel was applied to both sites because of the patient's anticoagulation. This was followed by Telfa OpSite dressing at the night and silver impregnated dressing and OpSite dressing at the chest. The previous exit site was excluded. The patient was subsequently taken to the recovery area in satisfactory condition without apparent complication and minimal blood loss. No apparent complications. Stat portable chest x-ray is pending. Blood loss minimal. Specimens none. Drains none. Thor Ceron M.D., F.A.C.S. Type of Anesthesia:: Local MAC Anesthesiologist: Guerrero Youssef
--- NOTE | 2020-12-07 16:18 | PCM.DC.POR ---
Discharge Diet: Renal Diet Discharge Activity: May Not Drive, May Not Shower Additional Dressing/Incision Instructions:: Leave the bandage on for 2-3 days. When you remove the bandage, leave the steri-strips intact until they fall off. Additional Instructions: Elevate head of bed for 2 to 4 hours upon arrival to the skilled nursing Dressing changes as per dialysis center. Please contact dialysis center for anticipated repeat dialysis tomorrow December 08, 2020 Allergies/Adverse Reactions: Allergies codeine Allergy (Verified 07/07/20 14:29) Rash latex Allergy (Verified 07/07/20 14:29) Itching Penicillins Allergy (Verified 07/07/20 14:29) Swelling dexamethasone [From Maxidex] Adverse Reaction (Verified 07/07/20 14:29) Unknown iodine Adverse Reaction (Verified 07/07/20 14:29) Itching morphine Adverse Reaction (Verified 07/07/20 14:29) Other contrast dye Allergy (Uncoded 07/07/20 14:29) GI upset GI upset Medications to take at Discharge Nitroglycerin [Nitrostat] 0.4 mg SL PRN PRN 07/19/13 Atorvastatin Calcium [Lipitor] 40 mg PO QHS 06/02/15 Aspirin [Aspirin, Baby] 81 mg PO DAILY@0800 08/15/17 Ondansetron [Zofran Odt] 4 mg PO Q8H PRN PRN #10 tab 03/22/19 Allopurinol 300 mg PO DAILY 11/04/19 Bupropion HCl [Bupropion Xl] 150 mg PO QHS 07/07/20 Bupropion HCl [Bupropion Xl] 300 mg PO BREAKFAST 07/07/20 Acetaminophen [Tylenol Tablet] 650 mg PO Q6H PRN PRN tab 07/09/20 Mag Hydrox/Al Hydrox/Simeth [Mylanta II] 30 ml PO Q6H PRN PRN udc 07/09/20 Docusate Sodium [Colace] 200 mg PO BID 08/09/20 Insulin Lispro [Humalog KwikPen] See Protocol SQ ACHS 08/09/20 Multivitamin 1 tab PO DAILY 08/09/20 Nystatin Powder [Mycostatin Powder] 1 applic TOPICAL BID 08/09/20 Nystatin/Triamcin Cream [Mycolog] 1 applic TOPICAL BID 08/09/20 Polyethylene Glycol 3350 [Miralax] 17 gm PO DAILY 08/09/20 Warfarin Sodium 4 mg PO DAILY 08/09/20 Lactulose [Chronulac] 30 gm PO TID udc 08/22/20 Levothyroxine [Synthroid] 75 mcg PO DAILY@0600 tab 08/22/20 Rifaximin [Xifaxan] 550 mg PO BID tab 08/22/20 Carvedilol 25 mg PO DAILY 12/07/20 Furosemide [Lasix] 40 mg PO LUNCH 12/07/20 Furosemide [Lasix] 80 mg PO BREAKFAST 12/07/20 Hydralazine HCl 25 mg PO TID 12/07/20 Insulin Glargine [Lantus SoloStar Pen] 45 unit SQ QHS 12/07/20 Isosorbide Mononitrate [Imdur] 30 mg PO DAILY 12/07/20 Omeprazole 20 mg PO DAILY 12/07/20 Potassium Chloride 20 meq PO BID 12/07/20 Primary Care Physician: Leslie Bird MD [Primary Care Provider] - Test Results: Test results from this visit will be discussed in further detail at your follow-up appointment, if applicable.
--- NOTE | 2020-12-07 16:30 | RAD_ITS ---
STUDY: X-RAY CHEST REASON FOR EXAM: Female, 60 years old. Catheter placement. TECHNIQUE: Single AP portable view of the chest. COMPARISON: August 14, 2020. FINDINGS: Central catheter on the right extends to the superior vena cava. Dual chamber pacemaker device on the left is stable. There are mid and lower lung airspace opacities. There are moderate pleural effusions. There is moderate cardiac enlargement. Normal mediastinum and bridgett. Normal visualized pulmonary arteries. Normal visualized aortic arch and descending thoracic aorta. There is a dextroscoliosis of the thoracic spine. Normal visualized ribs, clavicles, and shoulders. There is no demonstrated abnormality of the visualized soft tissue structures of the upper abdomen. RAD/Chest 1 View (Portable) IMPRESSION: Central catheter placement. No pneumothorax. Bilateral edema or pneumonia and pleural effusions. Electronically Signed: Harinder Goff MD at 16:59 EST , Service support ,
== END 2020-12-07 17:55 | disposition home or self-care (01) ==
LOC: ED 13:26 → SDC 14:06 → ACINP 14:07
PROVIDERS: Physician Assistant; Emergency Provider Emergency Medicine; PCP Internal Medicine; Visit Provider Surgery
PROC: (CPT 36558; principal; 2020-12-07 15:15)
DX: T82.42XA Displacement of vascular dialysis catheter, initial encounter (principal); I48.20 Chronic atrial fibrillation, unspecified; I25.10 Atherosclerotic heart disease of native coronary artery without angina pectoris; E11.22 Type 2 diabetes mellitus with diabetic chronic kidney disease; N18.5 Chronic kidney disease, stage 5; I50.9 Heart failure, unspecified; I25.5 Ischemic cardiomyopathy; J44.9 Chronic obstructive pulmonary disease, unspecified; E78.5 Hyperlipidemia, unspecified; E03.9 Hypothyroidism, unspecified; F32.9 Major depressive disorder, single episode, unspecified; F41.9 Anxiety disorder, unspecified; E66.01 Morbid (severe) obesity due to excess calories; Z68.43 Body mass index [BMI] 50.0-59.9, adult; Z78.0 Asymptomatic menopausal state; Z79.82 Long term (current) use of aspirin; Z79.4 Long term (current) use of insulin; Z79.01 Long term (current) use of anticoagulants; Z99.2 Dependence on renal dialysis; Z86.718 Personal history of other venous thrombosis and embolism; Z86.73 Personal history of transient ischemic attack (TIA), and cerebral infarction without residual deficits; Z95.0 Presence of cardiac pacemaker; Z87.891 Personal history of nicotine dependence; Z90.49 Acquired absence of other specified parts of digestive tract; Z90.710 Acquired absence of both cervix and uterus; Z89.611 Acquired absence of right leg above knee
CPT/HCPCS: 36558; 71045; 77001; 80048; 85025; 85610; 87426; 99284; J7050; A4216; C1750